=== PATIENT | female | born 1945 | race Caucasian/White ===

== ENCOUNTER → 2017-05-22 06:40 | Outpatient (CLI) | payer MEDICARE, OTHER, SELFPAY ==
[2017-05-22 07:33] LABS: Absolute Lymphocyte Count 1.51 X10^3/ul (0.83-4.51); Absolute Neutrophil Count 3.2 X10^3/uL (2.0-7.7); Basophil# 0.05 X10^3/uL; Basophil% 0.9 % (0-1); Eosinophils% 1.9 % (0-5); Hemoglobin 14.1 g/dl (12.0-15.0); Lymphocyte # 1.51 X10^3/ul (4.0); Lymphocyte % 28.2 % (19-41); Mean Corp Hgb Conc 32.8 g/gl (32-36); Mean Corpuscular Hgb 28.8 pg (27.0-32.0); Mean Corpuscular Volume 87.8 fL (81-99); Mean Platelet Vol. 9.2 fl (6.2-12.0); Monocyte% 9.3 % (0-10); Neutrophil % 59.7 % (47-70); Platelet Count 252 K/mm3 (150-450); RBC Distribution Width CV 15.7 % (11.6-14.6); RBC Distribution Width SD 49.8 fl (35.1-43.9); White Blood Count 5.4 K/mm3 (4.4-11.0)
[2017-05-22 07:34] LABS: POSITIVE COUNT NO; POSITIVE DIFFERENTIAL NO; POSITIVE MORPHOLOGY NO
[2017-05-22 07:45] LABS: ALB/GLOB Ratio 1.1 RATIO (0.9-2.4); AST(SGOT) 32 U/L (15-37); Alanine Aminotransfer ALT/SGPT 32 U/L (13-56); Albumin, Serum 3.9 g/dL (3.2-5.0); Alkaline Phosphatase 85 U/L (45-117); Anion Gap 8 (5-15); BUN 17 mg/dL (7-18); BUN/Creat Ratio 20.2 RATIO (10-20); Calcium,Total 9.5 mg/dL (8.5-10.1); Chloride 105 mmol/L (98-107); Cholesterol 240 mg/dL (200); Creatinine, Serum 0.84 mg/dL (0.55-1.02); EST Glomerular Filtration Rate 70 mL/min (>60); Est Glom Filt Rate - Afr Amer 85 mL/min (>60); Globulin 3.5 g/dL (2.2-4.2); Glucose 102 mg/dL (74-106); High Density Lipoprotein 74 mg/dL; Potassium 3.8 mmol/L (3.5-5.1); Protein, Total 7.4 g/dL (6.4-8.2); Sodium Level 142 mmol/L (136-145); Thyroid Stim Hormone (TSH) 0.48 uIU/mL (0.358-3.74); Triglycerides 87 mg/dL; Very Low Density Lipoprotein 17 mg/dL (5-40)
== END ==
PROVIDERS: Family Provider Family Medicine; PCP Family Medicine; Visit Provider Family Medicine
DX: I10 Essential (primary) hypertension (principal); E78.5 Hyperlipidemia, unspecified; E03.9 Hypothyroidism, unspecified
CPT/HCPCS: 36415; 80053; 80061; 84439; 84443; 85025

== ENCOUNTER → 2017-06-05 06:32 | Outpatient (CLI) | payer MEDICARE, OTHER, SELFPAY ==
[2017-06-05 06:45] LABS: Absolute Lymphocyte Count 1.49 X10^3/ul (0.83-4.51); Absolute Neutrophil Count 3.1 X10^3/uL (2.0-7.7); Basophil# 0.04 X10^3/uL; Basophil% 0.8 % (0-1); Eosinophil# 0.09 X10^3/uL; Eosinophils% 1.8 % (0-5); Hemoglobin 14.1 g/dl (12.0-15.0); Lymphocyte # 1.49 X10^3/ul (4.0); Mean Corp Hgb Conc 34.4 g/gl (32-36); Mean Corpuscular Hgb 30.3 pg (27.0-32.0); Monocyte# 0.47 X10^3/uL; Monocyte% 9.1 % (0-10); Neutrophil # 3.05 X10^3/uL (2.7-7.7); Neutrophil % 59.3 % (47-70); POSITIVE COUNT NO; POSITIVE DIFFERENTIAL NO; POSITIVE MORPHOLOGY NO; Platelet Count 265 K/mm3 (150-450); RBC Distribution Width CV 15.4 % (11.6-14.6); RBC Distribution Width SD 49.3 fl (35.1-43.9); Red Blood Count 4.66 M/mm3 (4.2-5.4); White Blood Count 5.1 K/mm3 (4.4-11.0)
[2017-06-05 07:02] LABS: ALB/GLOB Ratio 1.2 RATIO (0.9-2.4); AST(SGOT) 27 U/L (15-37); Alanine Aminotransfer ALT/SGPT 28 U/L (13-56); Albumin, Serum 3.9 g/dL (3.2-5.0); Alkaline Phosphatase 79 U/L (45-117); Anion Gap 6 (5-15); BUN 17 mg/dL (7-18); BUN/Creat Ratio 20.2 RATIO (10-20); Calcium,Total 9.4 mg/dL (8.5-10.1); Chloride 105 mmol/L (98-107); Creatinine, Serum 0.84 mg/dL (0.55-1.02); EST Glomerular Filtration Rate 70 mL/min (>60); Est Glom Filt Rate - Afr Amer 85 mL/min (>60); Globulin 3.3 g/dL (2.2-4.2); Glucose 103 mg/dL (74-106); Potassium 4.1 mmol/L (3.5-5.1); Protein, Total 7.2 g/dL (6.4-8.2); Sodium Level 140 mmol/L (136-145)
== END ==
PROVIDERS: Family Provider Family Medicine; PCP Family Medicine; Visit Provider Internal Medicine Rheumatology
DX: M06.4 Inflammatory polyarthropathy (principal); Z79.899 Other long term (current) drug therapy; M72.0 Palmar fascial fibromatosis [Dupuytren]; I10 Essential (primary) hypertension; H18.893 Other specified disorders of cornea, bilateral; E78.5 Hyperlipidemia, unspecified; I44.7 Left bundle-branch block, unspecified
CPT/HCPCS: 36415; 80053; 85025

== ENCOUNTER → 2017-08-13 06:29 | Outpatient (CLI) | payer MEDICARE, OTHER, SELFPAY ==
[2017-08-13 07:55] LABS: White Blood Count 5.5 K/mm3 (4.4-11.0)
[2017-08-13 07:56] LABS: Absolute Lymphocyte Count 1.15 X10^3/ul (0.83-4.51); Absolute Neutrophil Count 3.7 X10^3/uL (2.0-7.7); Basophil# 0.03 X10^3/uL; Basophil% 0.5 % (0-1); Eosinophil# 0.15 X10^3/uL; Eosinophils% 2.7 % (0-5); Hematocrit 41.3 % (37-47); Hemoglobin 13.4 g/dl (12.0-15.0); Lymphocyte # 1.15 X10^3/ul (4.0); Lymphocyte % 20.9 % (19-41); Mean Corp Hgb Conc 32.4 g/gl (32-36); Mean Corpuscular Volume 92.6 fL (81-99); Mean Platelet Vol. 9.3 fl (6.2-12.0); Monocyte# 0.52 X10^3/uL; Monocyte% 9.5 % (0-10); Neutrophil # 3.65 X10^3/uL (2.7-7.7); Neutrophil % 66.4 % (47-70); Platelet Count 241 K/mm3 (150-450); RBC Distribution Width CV 14.1 % (11.6-14.6); RBC Distribution Width SD 47.4 fl (35.1-43.9); Red Blood Count 4.46 M/mm3 (4.2-5.4)
[2017-08-13 07:57] LABS: POSITIVE COUNT NO; POSITIVE DIFFERENTIAL NO; POSITIVE MORPHOLOGY NO
[2017-08-13 08:33] LABS: ALB/GLOB Ratio 1.2 RATIO (0.9-2.4); AST(SGOT) 29 U/L (15-37); Alanine Aminotransfer ALT/SGPT 28 U/L (13-56); Alkaline Phosphatase 66 U/L (45-117); Anion Gap 8 (5-15); BUN 15 mg/dL (7-18); BUN/Creat Ratio 16.4 RATIO (10-20); Calcium,Total 9.5 mg/dL (8.5-10.1); Chloride 105 mmol/L (98-107); Creatinine, Serum 0.92 mg/dL (0.55-1.02); EST Glomerular Filtration Rate 64 mL/min (>60); Est Glom Filt Rate - Afr Amer 77 mL/min (>60); Globulin 3.3 g/dL (2.2-4.2); Glucose 96 mg/dL (74-106); Potassium 3.9 mmol/L (3.5-5.1); Protein, Total 7.3 g/dL (6.4-8.2); Sodium Level 141 mmol/L (136-145)
== END ==
PROVIDERS: Family Provider Family Medicine; PCP Family Medicine; Visit Provider Internal Medicine Rheumatology
DX: M06.4 Inflammatory polyarthropathy (principal); Z79.899 Other long term (current) drug therapy; M72.0 Palmar fascial fibromatosis [Dupuytren]; I10 Essential (primary) hypertension; H18.893 Other specified disorders of cornea, bilateral; E78.5 Hyperlipidemia, unspecified; I44.7 Left bundle-branch block, unspecified
CPT/HCPCS: 36415; 80053; 85025

== ENCOUNTER → 2017-08-21 06:56 | Outpatient (CLI) | payer MEDICARE, OTHER, SELFPAY ==
[2017-08-21 07:39] LABS: Absolute Lymphocyte Count 1.17 X10^3/ul (0.83-4.51); Absolute Neutrophil Count 4.4 X10^3/uL (2.0-7.7); Basophil# 0.03 X10^3/uL; Basophil% 0.5 % (0-1); Eosinophil# 0.09 X10^3/uL; Eosinophils% 1.5 % (0-5); Hemoglobin 13.5 g/dl (12.0-15.0); Lymphocyte # 1.17 X10^3/ul (4.0); Lymphocyte % 19.2 % (19-41); Mean Corp Hgb Conc 33.8 g/gl (32-36); Mean Corpuscular Hgb 30.9 pg (27.0-32.0); Mean Corpuscular Volume 91.5 fL (81-99); Mean Platelet Vol. 9.3 fl (6.2-12.0); Monocyte# 0.43 X10^3/uL; Monocyte% 7.1 % (0-10); Neutrophil # 4.35 X10^3/uL (2.7-7.7); Neutrophil % 71.5 % (47-70); Platelet Count 253 K/mm3 (150-450); RBC Distribution Width CV 13.6 % (11.6-14.6); RBC Distribution Width SD 44.8 fl (35.1-43.9); Red Blood Count 4.37 M/mm3 (4.2-5.4); White Blood Count 6.1 K/mm3 (4.4-11.0)
[2017-08-21 07:57] LABS: POSITIVE COUNT NO; POSITIVE DIFFERENTIAL NO; POSITIVE MORPHOLOGY NO
[2017-08-21 08:11] LABS: ALB/GLOB Ratio 1.1 RATIO (0.9-2.4); AST(SGOT) 37 U/L (15-37); Alanine Aminotransfer ALT/SGPT 33 U/L (13-56); Albumin, Serum 3.8 g/dL (3.2-5.0); Alkaline Phosphatase 66 U/L (45-117); Anion Gap 7 (5-15); BUN 13 mg/dL (7-18); BUN/Creat Ratio 13.2 RATIO (10-20); Calcium,Total 9.4 mg/dL (8.5-10.1); Chloride 107 mmol/L (98-107); Cholesterol 226 mg/dL (200); Creatinine, Serum 0.99 mg/dL (0.55-1.02); EST Glomerular Filtration Rate 59 mL/min (>60); Est Glom Filt Rate - Afr Amer 71 mL/min (>60); Globulin 3.4 g/dL (2.2-4.2); Glucose 109 mg/dL (74-106); High Density Lipoprotein 74 mg/dL; Potassium 3.8 mmol/L (3.5-5.1); Protein, Total 7.2 g/dL (6.4-8.2); Sodium Level 144 mmol/L (136-145); T4 Free Direct 1.31 ng/dL (0.76-1.46); Triglycerides 84 mg/dL; Very Low Density Lipoprotein 17 mg/dL (5-40)
== END ==
PROVIDERS: Family Provider Family Medicine; PCP Family Medicine; Visit Provider Family Medicine
DX: Z51.81 Encounter for therapeutic drug level monitoring (principal)
CPT/HCPCS: 36415; 80053; 80061; 84439; 84443; 85025

== ENCOUNTER → 2017-11-01 06:32 | Outpatient (CLI) | payer MEDICARE, OTHER, SELFPAY ==
[2017-11-01 07:36] LABS: Absolute Lymphocyte Count 1.43 X10^3/ul (0.83-4.51); Absolute Neutrophil Count 2.3 X10^3/uL (2.0-7.7); Basophil# 0.06 X10^3/uL; Basophil% 1.4 % (0-1); Eosinophil# 0.12 X10^3/uL; Eosinophils% 2.8 % (0-5); Hematocrit 39.6 % (37-47); Hemoglobin 13.2 g/dl (12.0-15.0); Lymphocyte # 1.43 X10^3/ul (4.0); Lymphocyte % 32.9 % (19-41); Mean Corp Hgb Conc 33.3 g/gl (32-36); Mean Corpuscular Hgb 30.3 pg (27.0-32.0); Mean Corpuscular Volume 90.8 fL (81-99); Mean Platelet Vol. 9.5 fl (6.2-12.0); Monocyte# 0.44 X10^3/uL; Monocyte% 10.1 % (0-10); Neutrophil # 2.29 X10^3/uL (2.7-7.7); Neutrophil % 52.8 % (47-70); Platelet Count 261 K/mm3 (150-450); RBC Distribution Width CV 13.9 % (11.6-14.6); RBC Distribution Width SD 45.5 fl (35.1-43.9); Red Blood Count 4.36 M/mm3 (4.2-5.4); White Blood Count 4.3 K/mm3 (4.4-11.0)
[2017-11-01 07:38] LABS: POSITIVE COUNT NO; POSITIVE DIFFERENTIAL NO; POSITIVE MORPHOLOGY NO
[2017-11-01 07:56] LABS: ALB/GLOB Ratio 1.2 RATIO (0.9-2.4); AST(SGOT) 29 U/L (15-37); Alanine Aminotransfer ALT/SGPT 33 U/L (13-56); Albumin, Serum 3.9 g/dL (3.2-5.0); Alkaline Phosphatase 65 U/L (45-117); Anion Gap 8 (5-15); BUN 16 mg/dL (7-18); BUN/Creat Ratio 18.5 RATIO (10-20); Calcium,Total 9.5 mg/dL (8.5-10.1); Chloride 108 mmol/L (98-107); Creatinine, Serum 0.87 mg/dL (0.55-1.02); EST Glomerular Filtration Rate 68 mL/min (>60); Est Glom Filt Rate - Afr Amer 82 mL/min (>60); Globulin 3.2 g/dL (2.2-4.2); Glucose 98 mg/dL (74-106); Potassium 3.9 mmol/L (3.5-5.1); Protein, Total 7.1 g/dL (6.4-8.2); Sodium Level 145 mmol/L (136-145)
== END ==
PROVIDERS: Family Provider Family Medicine; PCP Family Medicine; Visit Provider Internal Medicine Rheumatology
DX: M06.4 Inflammatory polyarthropathy (principal); Z79.899 Other long term (current) drug therapy; M72.0 Palmar fascial fibromatosis [Dupuytren]; I10 Essential (primary) hypertension; H18.893 Other specified disorders of cornea, bilateral; E78.5 Hyperlipidemia, unspecified; I44.7 Left bundle-branch block, unspecified
CPT/HCPCS: 36415; 80053; 85025

== ENCOUNTER → 2017-11-20 06:41 | Outpatient (CLI) | payer MEDICARE, OTHER, SELFPAY ==
[2017-11-20 07:25] LABS: Cholesterol 212 mg/dL (200); High Density Lipoprotein 72 mg/dL; T4 Free Direct 1.52 ng/dL (0.76-1.46); Thyroid Stim Hormone (TSH) 0.61 uIU/mL (0.358-3.74); Triglycerides 74 mg/dL; Very Low Density Lipoprotein 15 mg/dL (5-40)
== END ==
PROVIDERS: Family Provider Family Medicine; PCP Family Medicine; Referring Provider Family Medicine; Visit Provider Family Medicine
DX: I10 Essential (primary) hypertension (principal); E03.9 Hypothyroidism, unspecified; E78.5 Hyperlipidemia, unspecified; E55.9 Vitamin D deficiency, unspecified
CPT/HCPCS: 36415; 80061; 82306; 84439; 84443

== ENCOUNTER → 2018-02-13 06:35 | Outpatient (CLI) | payer MEDICARE, OTHER, SELFPAY ==
[2018-02-13 08:20] LABS: Absolute Lymphocyte Count 1.41 X10^3/ul (0.83-4.51); Absolute Neutrophil Count 4.1 X10^3/uL (2.0-7.7); Basophil# 0.05 X10^3/uL; Basophil% 0.8 % (0-1); Eosinophils% 1.6 % (0-5); Hematocrit 42.8 % (37-47); Hemoglobin 14.1 g/dl (12.0-15.0); Lymphocyte # 1.41 X10^3/ul (4.0); Lymphocyte % 23.2 % (19-41); Mean Corp Hgb Conc 32.9 g/gl (32-36); Mean Corpuscular Hgb 29.6 pg (27.0-32.0); Mean Corpuscular Volume 89.7 fL (81-99); Mean Platelet Vol. 9.9 fl (6.2-12.0); Monocyte% 6.6 % (0-10); Neutrophil % 67.6 % (47-70); Platelet Count 260 K/mm3 (150-450); RBC Distribution Width CV 13.7 % (11.6-14.6); RBC Distribution Width SD 43.9 fl (35.1-43.9); Red Blood Count 4.77 M/mm3 (4.2-5.4); White Blood Count 6.1 K/mm3 (4.4-11.0)
[2018-02-13 08:22] LABS: POSITIVE COUNT NO; POSITIVE DIFFERENTIAL NO; POSITIVE MORPHOLOGY NO
[2018-02-13 09:00] LABS: ALB/GLOB Ratio 1.3 RATIO (0.9-2.4); AST(SGOT) 33 U/L (15-37); Alanine Aminotransfer ALT/SGPT 32 U/L (13-56); Albumin, Serum 4.1 g/dL (3.2-5.0); Alkaline Phosphatase 76 U/L (45-117); Anion Gap 9 (5-15); BUN 16 mg/dL (7-18); BUN/Creat Ratio 19.9 RATIO (10-20); Calcium,Total 9.6 mg/dL (8.5-10.1); Chloride 105 mmol/L (98-107); EST Glomerular Filtration Rate 74 mL/min (>60); Est Glom Filt Rate - Afr Amer 89 mL/min (>60); Globulin 3.1 g/dL (2.2-4.2); Glucose 97 mg/dL (74-106); Potassium 3.8 mmol/L (3.5-5.1); Protein, Total 7.2 g/dL (6.4-8.2); Sodium Level 141 mmol/L (136-145)
== END ==
PROVIDERS: Family Provider Family Medicine; PCP Family Medicine; Referring Provider Internal Medicine Rheumatology; Visit Provider Internal Medicine Rheumatology
DX: M06.4 Inflammatory polyarthropathy (principal); Z79.899 Other long term (current) drug therapy; M72.0 Palmar fascial fibromatosis [Dupuytren]; I10 Essential (primary) hypertension; H18.893 Other specified disorders of cornea, bilateral; E78.5 Hyperlipidemia, unspecified; I44.7 Left bundle-branch block, unspecified
CPT/HCPCS: 36415; 80053; 85025

== ENCOUNTER → 2018-02-26 06:47 | Outpatient (CLI) | payer MEDICARE, OTHER, SELFPAY ==
[2018-02-26 07:54] LABS: Cholesterol 210 mg/dL (200); High Density Lipoprotein 72 mg/dL; T4 Free Direct 1.65 ng/dL (0.76-1.46); Thyroid Stim Hormone (TSH) 0.22 uIU/mL (0.358-3.74); Triglycerides 72 mg/dL; Very Low Density Lipoprotein 14 mg/dL (5-40)
--- OUTSIDE RECORDS SUMMARY | 2018-05-02 22:17 | XMS RPT_ITS ---
:1945 Author Organization OH[facility] Care Team Providers Name Role Phone La Nena Vaz Attending Unavailable La Nena Vaz Referring Unavailable Russell Shannon Primary Care Unavailable Russell Shannon Attending Unavailable Russell Shannon Referring Unavailable Russell Shannon Primary Care Unavailable Russell Shannon Attending Unavailable Russell Shannon Referring Unavailable Russell Shannon Primary Care Unavailable La Nena Vaz Attending Unavailable La Nena Vaz Referring Unavailable Russell Shannon Primary Care Unavailable La Nena Vaz Attending Unavailable Temitope Vazma Referring Unavailable Russell Shannon Primary Care Unavailable Russell Shannon Attending Unavailable Russell Shannon Referring Unavailable Russell Shannon Primary Care Unavailable La Nena Vaz Attending Unavailable La Nena Vaz Referring Unavailable Russell Shannon Primary Care Unavailable Russell Shannon Attending Unavailable Russell Shannon Referring Unavailable MirthaRussell matos Primary Care Unavailable PROBLEMS PROBLEMS DATE TYPE CONDITION / CODE ATTENDING STATUS SOURCE 02/26/2018 Unknown E78.5 - Russell Shannon Active [facility] Hyperlipidemia, Community unspecified / Hospital E78.5(ICD-10) Repository 02/26/2018 Unknown E03.9 - Russell Shannon Active [facility] Hypothyroidism, Community unspecified / Hospital E03.9(ICD-10) Repository 02/26/2018 Unknown K59.00 - Russell Shannon Active [place] Constipation, Community unspecified / Hospital K59.00(ICD-10) Repository 02/13/2018 Unknown 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 / Community M06.4(ICD-10) Hospital Repository 02/13/2018 Unknown Z79.899 - Other long La Nena Vaz Active [facility] term (current) drug Community therapy / Hospital Z79.899(ICD-10) Repository 02/13/2018 Unknown 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] / Hospital M72.0(ICD-10) Repository 02/13/2018 Unknown I10 - Essential Vellanjace La Nena Active [facility] (primary) Community hypertension / Hospital I10(ICD-10) Repository 02/13/2018 Unknown 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, bilateral Hospital / H18.893(ICD-10) Repository 02/13/2018 Unknown 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, Community unspecified / Hospital I44.7(ICD-10) Repository 11/20/2017 Unknown E55.9 - Vitamin D Russell Shannon Active [facility] deficiency, Community unspecified / Hospital E55.9(ICD-10) Repository 08/21/2017 Unknown Z51.81 - Encounter Russell Shannon Active [facility] for therapeutic drug Community level monitoring / Hospital Z51.81(ICD-10) Repository PROCEDURES PROCEDURES No Procedure Records FoundRESULTS RESULTS LIPID PROFILE Collected: 02/26/2018 Status: F Source: [facility] [facility] TYPE CODE TESTS RESULT OUT OF RANGE REFERENCE UNITS LAB L501.4900 200 mg/dL High CHOL 210 Result Comment: <200 mg/dL Desirable 200-240 mg/dL Borderline >240 mg/dL High Risk LAB L501.5000 mg/dL Normal TRIG 72 Result Comment: The drugs N-Acetylcysteine and Metamizole may falsely depress this assay. Serum Triglycerides Reference Interval Normal <150 mg/dL Borderline high 150 - 199 mg/dL High 200 - 499 mg/dL Very High > or = 500 mg/dL LAB L501.6400 mg/dL Normal HDL 72 Result Comment: The drugs N-Acetylcysteine and Metamizole may falsely depress this assay. Reference Range HDL <40 mg/dL Low HDL Cholesterol HDL >or= 60 mg/dL High HDL Cholesterol LAB L501.6500 0-130 mg/dL Normal LDL 124 LAB L501.6600 5-40 mg/dL Normal VLDL 14 Performed By: #### L500.4100, L501.9520, L506.0400 #### [facility] [address] [place], [address] THYROID STIM HORMONE Collected: 02/26/2018 Status: F Source: [place] ([facility]) 6:56 AM [facility] REPOSITORY TYPE CODE TESTS RESULT OUT OF RANGE REFERENCE UNITS LAB L501.9520 0.358-3.74 uIU/mL Low TSH 0.22 Performed By: #### L500.4100, L501.9520, L506.0400 #### [facility] [address] [place], [address] T4 FREE DIRECT Collected: 02/26/2018 Status: F Source: [place] 6:56 AM [facility] REPOSITORY TYPE CODE TESTS RESULT OUT OF REFERENCE UNITS RANGE LAB L506.0400 0.76-1.46 ng/dL High T4 FREE 1.65 DIRECT Performed By: #### L500.4100, L501.9520, L506.0400 #### [facility] [address] [place], [address] CBC W/DIFF, AUTOMATED Collected: 02/13/2018 Status: F Source: [place] 6:41 AM [facility] REPOSITORY TYPE CODE TESTS RESULT OUT OF RANGE REFERENCE UNITS LAB L100.1000 4.4-11.0 K/mm3 Normal WBC 6.1 LAB L100.1200 4.2-5.4 M/mm3 Normal RBC 4.77 LAB L100.1300 12.0-15.0 g/dl Normal HGB 14.1 LAB L100.1400 37-47 % Normal HCT 42.8 LAB L100.1500 81-99 fL Normal MCV 89.7 LAB L100.1600 27.0-32.0 pg Normal MCH 29.6 LAB L100.1700 32-36 g/gl Normal MCHC 32.9 LAB L100.1810 11.6-14.6 % Normal RDW CV 13.7 LAB L100.1820 35.1-43.9 fl Normal RDW SD 43.9 LAB L100.1900 150-450 K/mm3 Normal PLT 260 LAB L100.2000 6.2-12.0 fl Normal MPV 9.9 LAB L100.2100 47-70 % Normal NEUT% 67.6 LAB L100.2200 19-41 % Normal LY% 23.2 LAB L100.2300 0-10 % Normal MONO% 6.6 LAB L100.2400 0-5 % Normal EO% 1.6 LAB L100.2500 0-1 % Normal BASO% 0.8 LAB L100.2550 0.0-0.9 % Normal IM GRAN % 0.200 Result Comment: IG% - Immature Granulocytes (promyelocytes, myelocytes and metamyelocytes) > 1% indicates that a LEFT SHIFT is Present. LAB L100.2620 2.0-7.7 X10 3/uL Normal Absolute Neut 4.1 LAB L100.2720 0.83-4.51 X10 3/ul Normal Absolute Lymph 1.41 Performed By: #### L100.0100 #### [facility] [address] [place], [place], [address] COMPREHENSIVE METABOLIC Collected: 02/13/2018 Status: F Source: [place] 6:41 AM [facility] REPOSITORY TYPE CODE TESTS RESULT OUT OF RANGE REFERENCE UNITS LAB L501.0100 74-106 mg/dL Normal GLU 97 Result Comment: Please note revised GLUCOSE reference range effective 2017. LAB L501.1000 7-18 mg/dL Normal BUN 16 LAB L501.1100 0.55-1.02 mg/dL Normal CREAT,SERUM 0.80 Result Comment: The validity of the calculated GFR AND GFRAA in patients over 70 years has not been determined. Clinical correlation is essential. LAB L501.1110 >60 mL/min Normal EST GFR 74 Result Comment: Non- GFR Calc LAB L501.1115 >60 mL/min Normal EST GFR - AA 89 Result Comment: GFR Calc LAB L501.1300 10-20 RATIO Normal BUN/CRE 19.9 LAB L501.1500 6.4-8.2 g/dL T Normal PROT 7.2 LAB L501.1800 3.2-5.0 g/dL Normal ALB 4.1 LAB L501.1950 2.2-4.2 g/dL Normal GLOB 3.1 LAB L501.2000 0.9-2.4 RATIO Normal A/G 1.3 LAB L501.2200 8.5-10.1 mg/dL CA Normal 9.6 LAB L501.4100 15-37 U/L Normal AST 33 LAB L501.4305 45-117 U/L Normal ALK P 76 LAB L501.4405 13-56 U/L Normal ALT 32 LAB L501.4600 0.20-1.00 mg/dL T Normal BILI 0.90 LAB L501.5300 136-145 mmol/L NA Normal 141 LAB L501.5600 3.5-5.1 mmol/L K Normal 3.8 LAB L501.5900 98-107 mmol/L CL Normal 105 LAB L501.6100 21.0-32.0 mmol/L Normal CO2 27.0 LAB L501.6200 5-15 Normal GAP 9 Performed By: #### L500.4050 #### [facility] [address] [place], [address] LIPID PROFILE Collected: 11/20/2017 Status: F Source: [place] 6:46 AM [facility] REPOSITORY TYPE CODE TESTS RESULT OUT OF RANGE REFERENCE UNITS LAB L501.4900 200 mg/dL High CHOL 212 Result Comment: <200 mg/dL Desirable 200-240 mg/dL Borderline >240 mg/dL High Risk LAB L501.5000 mg/dL Normal TRIG 74 Result Comment: The drugs N-Acetylcysteine and Metamizole may falsely depress this assay. Serum Triglycerides Reference Interval Normal <150 mg/dL Borderline high 150 - 199 mg/dL High 200 - 499 mg/dL Very High > or = 500 mg/dL LAB L501.6400 mg/dL Normal HDL 72 Result Comment: The drugs N-Acetylcysteine and Metamizole may falsely depress this assay. Reference Range HDL <40 mg/dL Low HDL Cholesterol HDL >or= 60 mg/dL High HDL Cholesterol LAB L501.6500 0-130 mg/dL Normal LDL 125 LAB L501.6600 5-40 mg/dL Normal VLDL 15 Performed By: #### L500.4100, L501.9520, L506.0400 #### [facility] [address] [place], [address] THYROID STIM HORMONE Collected: 11/20/2017 Status: F Source: [place] ([facility]) 6:46 AM [facility] REPOSITORY TYPE CODE TESTS RESULT OUT OF RANGE REFERENCE UNITS LAB L501.9520 0.358-3.74 uIU/mL Normal TSH 0.61 Performed By: #### L500.4100, L501.9520, L506.0400 #### [facility] [address] [place], [address] T4 FREE DIRECT Collected: 11/20/2017 Status: F Source: [place] 6:46 AM [facility] REPOSITORY TYPE CODE TESTS RESULT OUT OF REFERENCE UNITS RANGE LAB L506.0400 0.76-1.46 ng/dL High T4 FREE 1.52 DIRECT Performed By: #### L500.4100, L501.9520, L506.0400 #### [facility] [address] [place], [address] VITAMIN D,25 HYDROXY Collected: 11/20/2017 Status: F Source: [place] 6:46 AM [facility] REPOSITORY TYPE CODE TESTS RESULT OUT OF RANGE REFERENCE UNITS LAB L506.1000 29.95-100.01 ng/mL Normal Vitamin D 36.0 25-OH Result Comment: Vitamin D 25(OH) Status Range Deficiency <20 ng/mL (50nmol/L) Insuffciency 20 - 30 ng/mL (50 - 75 nmol/L) Sufficiency 30 - 100 ng/mL (75 - 250 nmol/L) Toxicity >100 ng/mL (>250 nmol/L) Performed By: #### L506.1000 #### [facility] [address] [place] [place], [address] CBC W/DIFF, AUTOMATED Collected: 11/01/2017 Status: F Source: [place] 6:36 AM [facility] REPOSITORY TYPE CODE TESTS RESULT OUT OF RANGE REFERENCE UNITS LAB L100.1000 4.4-11.0 K/mm3 Low WBC 4.3 LAB L100.1200 4.2-5.4 M/mm3 Normal RBC 4.36 LAB L100.1300 12.0-15.0 g/dl Normal HGB 13.2 LAB L100.1400 37-47 % Normal HCT 39.6 LAB L100.1500 81-99 fL Normal MCV 90.8 LAB L100.1600 27.0-32.0 pg Normal MCH 30.3 LAB L100.1700 32-36 g/gl Normal MCHC 33.3 LAB L100.1810 11.6-14.6 % Normal RDW CV 13.9 LAB L100.1820 35.1-43.9 fl High RDW SD 45.5 LAB L100.1900 150-450 K/mm3 Normal PLT 261 LAB L100.2000 6.2-12.0 fl Normal MPV 9.5 LAB L100.2100 47-70 % Normal NEUT% 52.8 LAB L100.2200 19-41 % Normal LY% 32.9 LAB L100.2300 0-10 % High MONO% 10.1 LAB L100.2400 0-5 % Normal EO% 2.8 LAB L100.2500 0-1 % High BASO% 1.4 LAB L100.2550 0.0-0.9 % Normal IM GRAN % 0.000 Result Comment: IG% - Immature Granulocytes (promyelocytes, myelocytes and metamyelocytes) > 1% indicates that a LEFT SHIFT is Present. LAB L100.2620 2.0-7.7 X10 3/uL Normal Absolute Neut 2.3 LAB L100.2720 0.83-4.51 X10 3/ul Normal Absolute Lymph 1.43 Performed By: #### L100.0100 #### [facility] [address] [place], [address] COMPREHENSIVE METABOLIC Collected: 11/01/2017 Status: F Source: [place] [place] 6:36 AM [facility] REPOSITORY TYPE CODE TESTS RESULT OUT OF RANGE REFERENCE UNITS LAB L501.0100 74-106 mg/dL Normal GLU 98 Result Comment: Please note revised GLUCOSE reference range effective 2017. LAB L501.1000 7-18 mg/dL Normal BUN 16 LAB L501.1100 0.55-1.02 mg/dL Normal CREAT,SERUM 0.87 Result Comment: The validity of the calculated GFR AND GFRAA in patients over 70 years has not been determined. Clinical correlation is essential. LAB L501.1110 >60 mL/min Normal EST GFR 68 Result Comment: Non- GFR Calc LAB L501.1115 >60 mL/min Normal EST GFR - AA 82 Result Comment: GFR Calc LAB L501.1300 10-20 RATIO Normal BUN/CRE 18.5 LAB L501.1500 6.4-8.2 g/dL T Normal PROT 7.1 LAB L501.1800 3.2-5.0 g/dL Normal ALB 3.9 LAB L501.1950 2.2-4.2 g/dL Normal GLOB 3.2 LAB L501.2000 0.9-2.4 RATIO Normal A/G 1.2 LAB L501.2200 8.5-10.1 mg/dL CA Normal 9.5 LAB L501.4100 15-37 U/L Normal AST 29 LAB L501.4305 45-117 U/L Normal ALK P 65 LAB L501.4405 13-56 U/L Normal ALT 33 LAB L501.4600 0.20-1.00 mg/dL T Normal BILI 0.80 LAB L501.5300 136-145 mmol/L NA Normal 145 LAB L501.5600 3.5-5.1 mmol/L K Normal 3.9 LAB L501.5900 98-107 mmol/L High CL 108 LAB L501.6100 21.0-32.0 mmol/L Normal CO2 29.0 LAB L501.6200 5-15 Normal GAP 8 Performed By: #### L500.4050 #### [facility] [address] [place], [place], [address] CBC W/DIFF, AUTOMATED Collected: 08/21/2017 Status: F Source: [place] 7:01 AM [facility] REPOSITORY TYPE CODE TESTS RESULT OUT OF RANGE REFERENCE UNITS LAB L100.1000 4.4-11.0 K/mm3 Normal WBC 6.1 LAB L100.1200 4.2-5.4 M/mm3 Normal RBC 4.37 LAB L100.1300 12.0-15.0 g/dl Normal HGB 13.5 LAB L100.1400 37-47 % Normal HCT 40.0 LAB L100.1500 81-99 fL Normal MCV 91.5 LAB L100.1600 27.0-32.0 pg Normal MCH 30.9 LAB L100.1700 32-36 g/gl Normal MCHC 33.8 LAB L100.1810 11.6-14.6 % Normal RDW CV 13.6 LAB L100.1820 35.1-43.9 fl High RDW SD 44.8 LAB L100.1900 150-450 K/mm3 Normal PLT 253 LAB L100.2000 6.2-12.0 fl Normal MPV 9.3 LAB L100.2100 47-70 % High NEUT% 71.5 LAB L100.2200 19-41 % Normal LY% 19.2 LAB L100.2300 0-10 % Normal MONO% 7.1 LAB L100.2400 0-5 % Normal EO% 1.5 LAB L100.2500 0-1 % Normal BASO% 0.5 LAB L100.2550 0.0-0.9 % Normal IM GRAN % 0.200 Result Comment: IG% - Immature Granulocytes (promyelocytes, myelocytes and metamyelocytes) > 1% indicates that a LEFT SHIFT is Present. LAB L100.2620 2.0-7.7 X10 3/uL Normal Absolute Neut 4.4 LAB L100.2720 0.83-4.51 X10 3/ul Normal Absolute Lymph 1.17 Performed By: #### L100.0100 #### [facility] [address] [place], [place], [address] COMPREHENSIVE METABOLIC Collected: 08/21/2017 Status: F Source: [facility] 7:01 AM [facility] REPOSITORY TYPE CODE TESTS RESULT OUT OF RANGE REFERENCE UNITS LAB L501.0100 74-106 mg/dL High GLU 109 Result Comment: Fasting Glucose result from 100 to 125 mg/dL suggests IMPAIRED HOMEOSTASIS per A.D.A. criteria. Please note revised GLUCOSE reference range effective 2017. LAB L501.1000 7-18 mg/dL Normal BUN 13 LAB L501.1100 0.55-1.02 mg/dL Normal CREAT,SERUM 0.99 Result Comment: The validity of the calculated GFR AND GFRAA in patients over 70 years has not been determined. Clinical correlation is essential. LAB L501.1110 >60 mL/min Low EST GFR 59 Result Comment: Non- GFR Calc LAB L501.1115 >60 mL/min Normal EST GFR - AA 71 Result Comment: GFR Calc LAB L501.1300 10-20 RATIO Normal BUN/CRE 13.2 LAB L501.1500 6.4-8.2 g/dL T Normal PROT 7.2 LAB L501.1800 3.2-5.0 g/dL Normal ALB 3.8 LAB L501.1950 2.2-4.2 g/dL Normal GLOB 3.4 LAB L501.2000 0.9-2.4 RATIO Normal A/G 1.1 LAB L501.2200 8.5-10.1 mg/dL CA Normal 9.4 LAB L501.4100 15-37 U/L Normal AST 37 LAB L501.4305 45-117 U/L Normal ALK P 66 LAB L501.4405 13-56 U/L Normal ALT 33 LAB L501.4600 0.20-1.00 mg/dL T Normal BILI 0.70 LAB L501.5300 136-145 mmol/L NA Normal 144 LAB L501.5600 3.5-5.1 mmol/L K Normal 3.8 LAB L501.5900 98-107 mmol/L CL Normal 107 LAB L501.6100 21.0-32.0 mmol/L Normal CO2 30.0 LAB L501.6200 5-15 Normal GAP 7 Performed By: #### L500.4050, L500.4100, L501.9520, L506.0400 #### [facility] [place], [address] LIPID PROFILE Collected: 08/21/2017 Status: F Source: [place] 7:01 AM [facility] REPOSITORY TYPE CODE TESTS RESULT OUT OF RANGE REFERENCE UNITS LAB L501.4900 200 mg/dL High CHOL 226 Result Comment: <200 mg/dL Desirable 200-240 mg/dL Borderline >240 mg/dL High Risk LAB L501.5000 mg/dL Normal TRIG 84 Result Comment: The drugs N-Acetylcysteine and Metamizole may falsely depress this assay. Serum Triglycerides Reference Interval Normal <150 mg/dL Borderline high 150 - 199 mg/dL High 200 - 499 mg/dL Very High > or = 500 mg/dL LAB L501.6400 mg/dL Normal HDL 74 Result Comment: The drugs N-Acetylcysteine and Metamizole may falsely depress this assay. Reference Range HDL <40 mg/dL Low HDL Cholesterol HDL >or= 60 mg/dL High HDL Cholesterol LAB L501.6500 0-130 mg/dL High LDL 135 LAB L501.6600 5-40 mg/dL Normal VLDL 17 Performed By: #### L500.4050, L500.4100, L501.9520, L506.0400 #### [facility] [address] [place], [address] THYROID STIM HORMONE Collected: 08/21/2017 Status: F Source: [place] (T[facility]) 7:01 AM [facility] REPOSITORY TYPE CODE TESTS RESULT OUT OF RANGE REFERENCE UNITS LAB L501.9520 0.358-3.74 uIU/mL High TSH 13.20 Performed By: #### L500.4050, L500.4100, L501.9520, L506.0400 #### [facility] [address] [place], [place], [id number] T4 FREE DIRECT Collected: 08/21/2017 Status: F Source: [place] 7:01 AM [facility] REPOSITORY TYPE CODE TESTS RESULT OUT OF RANGE REFERENCE UNITS LAB L506.0400 0.76-1.46 ng/dL Normal T4 FREE 1.31 DIRECT Performed By: #### L500.4050, L500.4100, L501.9520, L506.0400 #### [facility] [address] [place], [place], [address] CBC W/DIFF, AUTOMATED Collected: 08/13/2017 Status: F Source: [place] 6:34 AM [facility] REPOSITORY TYPE CODE TESTS RESULT OUT OF RANGE REFERENCE UNITS LAB L100.1000 4.4-11.0 K/mm3 Normal WBC 5.5 LAB L100.1200 4.2-5.4 M/mm3 Normal RBC 4.46 LAB L100.1300 12.0-15.0 g/dl Normal HGB 13.4 LAB L100.1400 37-47 % Normal HCT 41.3 LAB L100.1500 81-99 fL Normal MCV 92.6 LAB L100.1600 27.0-32.0 pg Normal MCH 30.0 LAB L100.1700 32-36 g/gl Normal MCHC 32.4 LAB L100.1810 11.6-14.6 % Normal RDW CV 14.1 LAB L100.1820 35.1-43.9 fl High RDW SD 47.4 LAB L100.1900 150-450 K/mm3 Normal PLT 241 LAB L100.2000 6.2-12.0 fl Normal MPV 9.3 LAB L100.2100 47-70 % Normal NEUT% 66.4 LAB L100.2200 19-41 % Normal LY% 20.9 LAB L100.2300 0-10 % Normal MONO% 9.5 LAB L100.2400 0-5 % Normal EO% 2.7 LAB L100.2500 0-1 % Normal BASO% 0.5 LAB L100.2550 0.0-0.9 % Normal IM GRAN % 0.000 Result Comment: IG% - Immature Granulocytes (promyelocytes, myelocytes and metamyelocytes) > 1% indicates that a LEFT SHIFT is Present. LAB L100.2620 2.0-7.7 X10 3/uL Normal Absolute Neut 3.7 LAB L100.2720 0.83-4.51 X10 3/ul Normal Absolute Lymph 1.15 Performed By: #### L100.0100 #### [facility] [address] [place], [address] COMPREHENSIVE METABOLIC Collected: 08/13/2017 Status: F Source: [facility] 6:34 AM [facility] REPOSITORY TYPE CODE TESTS RESULT OUT OF RANGE REFERENCE UNITS LAB L501.0100 74-106 mg/dL Normal GLU 96 Result Comment: Please note revised GLUCOSE reference range effective 2017. LAB L501.1000 7-18 mg/dL Normal BUN 15 LAB L501.1100 0.55-1.02 mg/dL Normal CREAT,SERUM 0.92 Result Comment: The validity of the calculated GFR AND GFRAA in patients over 70 years has not been determined. Clinical correlation is essential. LAB L501.1110 >60 mL/min Normal EST GFR 64 Result Comment: Non- GFR Calc LAB L501.1115 >60 mL/min Normal EST GFR - AA 77 Result Comment: GFR Calc LAB L501.1300 10-20 RATIO Normal BUN/CRE 16.4 LAB L501.1500 6.4-8.2 g/dL T Normal PROT 7.3 LAB L501.1800 3.2-5.0 g/dL Normal ALB 4.0 LAB L501.1950 2.2-4.2 g/dL Normal GLOB 3.3 LAB L501.2000 0.9-2.4 RATIO Normal A/G 1.2 LAB L501.2200 8.5-10.1 mg/dL CA Normal 9.5 LAB L501.4100 15-37 U/L Normal AST 29 LAB L501.4305 45-117 U/L Normal ALK P 66 LAB L501.4405 13-56 U/L Normal ALT 28 LAB L501.4600 0.20-1.00 mg/dL T Normal BILI 0.70 LAB L501.5300 136-145 mmol/L NA Normal 141 LAB L501.5600 3.5-5.1 mmol/L K Normal 3.9 LAB L501.5900 98-107 mmol/L CL Normal 105 LAB L501.6100 21.0-32.0 mmol/L Normal CO2 28.0 LAB L501.6200 5-15 Normal GAP 8 Performed By: #### L500.4050 #### [facility] [address] [place], [address] CBC W/DIFF, AUTOMATED Collected: 06/05/2017 Status: F Source: [place] 6:36 AM [facility] REPOSITORY TYPE CODE TESTS RESULT OUT OF RANGE REFERENCE UNITS LAB L100.1000 4.4-11.0 K/mm3 Normal WBC 5.1 LAB L100.1200 4.2-5.4 M/mm3 Normal RBC 4.66 LAB L100.1300 12.0-15.0 g/dl Normal HGB 14.1 LAB L100.1400 37-47 % Normal HCT 41.0 LAB L100.1500 81-99 fL Normal MCV 88.0 LAB L100.1600 27.0-32.0 pg Normal MCH 30.3 LAB L100.1700 32-36 g/gl Normal MCHC 34.4 LAB L100.1810 11.6-14.6 % High RDW CV 15.4 LAB L100.1820 35.1-43.9 fl High RDW SD 49.3 LAB L100.1900 150-450 K/mm3 Normal PLT 265 LAB L100.2000 6.2-12.0 fl Normal MPV 9.0 LAB L100.2100 47-70 % Normal NEUT% 59.3 LAB L100.2200 19-41 % Normal LY% 29.0 LAB L100.2300 0-10 % Normal MONO% 9.1 LAB L100.2400 0-5 % Normal EO% 1.8 LAB L100.2500 0-1 % Normal BASO% 0.8 LAB L100.2550 0.0-0.9 % Normal IM GRAN % 0.000 Result Comment: IG% - Immature Granulocytes (promyelocytes, myelocytes and metamyelocytes) > 1% indicates that a LEFT SHIFT is Present. LAB L100.2620 2.0-7.7 X10 3/uL Normal Absolute Neut 3.1 LAB L100.2720 0.83-4.51 X10 3/ul Normal Absolute Lymph 1.49 Performed By: #### L100.0100 #### [facility] [address] [place], [place], [address] COMPREHENSIVE METABOLIC Collected: 06/05/2017 Status: F Source: [facility] 6:36 AM [facility] REPOSITORY TYPE CODE TESTS RESULT OUT OF RANGE REFERENCE UNITS LAB L501.0100 74-106 mg/dL Normal GLU 103 Result Comment: Fasting Glucose result from 100 to 125 mg/dL suggests IMPAIRED HOMEOSTASIS per A.D.A. criteria. Please note revised GLUCOSE reference range effective 2017. LAB L501.1000 7-18 mg/dL Normal BUN 17 LAB L501.1100 0.55-1.02 mg/dL Normal CREAT,SERUM 0.84 Result Comment: The validity of the calculated GFR AND GFRAA in patients over 70 years has not been determined. Clinical correlation is essential. LAB L501.1110 >60 mL/min Normal EST GFR 70 Result Comment: Non- GFR Calc LAB L501.1115 >60 mL/min Normal EST GFR - AA 85 Result Comment: GFR Calc LAB L501.1300 10-20 RATIO High BUN/CRE 20.2 LAB L501.1500 6.4-8.2 g/dL T Normal PROT 7.2 LAB L501.1800 3.2-5.0 g/dL Normal ALB 3.9 LAB L501.1950 2.2-4.2 g/dL Normal GLOB 3.3 LAB L501.2000 0.9-2.4 RATIO Normal A/G 1.2 LAB L501.2200 8.5-10.1 mg/dL CA Normal 9.4 LAB L501.4100 15-37 U/L Normal AST 27 LAB L501.4305 45-117 U/L Normal ALK P 79 LAB L501.4405 13-56 U/L Normal ALT 28 LAB L501.4600 0.20-1.00 mg/dL T Normal BILI 0.90 LAB L501.5300 136-145 mmol/L NA Normal 140 LAB L501.5600 3.5-5.1 mmol/L K Normal 4.1 LAB L501.5900 98-107 mmol/L CL Normal 105 LAB L501.6100 21.0-32.0 mmol/L Normal CO2 29.0 LAB L501.6200 5-15 Normal GAP 6 Performed By: #### L500.4050 #### [facility] [address] [place], [address] CBC W/DIFF, AUTOMATED Collected: 05/22/2017 Status: F Source: [place] 6:43 AM [facility] REPOSITORY TYPE CODE TESTS RESULT OUT OF RANGE REFERENCE UNITS LAB L100.1000 4.4-11.0 K/mm3 Normal WBC 5.4 LAB L100.1200 4.2-5.4 M/mm3 Normal RBC 4.90 LAB L100.1300 12.0-15.0 g/dl Normal HGB 14.1 LAB L100.1400 37-47 % Normal HCT 43.0 LAB L100.1500 81-99 fL Normal MCV 87.8 LAB L100.1600 27.0-32.0 pg Normal MCH 28.8 LAB L100.1700 32-36 g/gl Normal MCHC 32.8 LAB L100.1810 11.6-14.6 % High RDW CV 15.7 LAB L100.1820 35.1-43.9 fl High RDW SD 49.8 LAB L100.1900 150-450 K/mm3 Normal PLT 252 LAB L100.2000 6.2-12.0 fl Normal MPV 9.2 LAB L100.2100 47-70 % Normal NEUT% 59.7 LAB L100.2200 19-41 % Normal LY% 28.2 LAB L100.2300 0-10 % Normal MONO% 9.3 LAB L100.2400 0-5 % Normal EO% 1.9 LAB L100.2500 0-1 % Normal BASO% 0.9 LAB L100.2550 0.0-0.9 % Normal IM GRAN % 0.000 Result Comment: IG% - Immature Granulocytes (promyelocytes, myelocytes and metamyelocytes) > 1% indicates that a LEFT SHIFT is Present. LAB L100.2620 2.0-7.7 X10 3/uL Normal Absolute Neut 3.2 LAB L100.2720 0.83-4.51 X10 3/ul Normal Absolute Lymph 1.51 Performed By: #### L100.0100 #### [facility] [address] [place], [address] COMPREHENSIVE METABOLIC Collected: 05/22/2017 Status: F Source: [facility] 6:43 AM [facility] REPOSITORY TYPE CODE TESTS RESULT OUT OF RANGE REFERENCE UNITS LAB L501.0100 74-106 mg/dL Normal GLU 102 Result Comment: Fasting Glucose result from 100 to 125 mg/dL suggests IMPAIRED HOMEOSTASIS per A.D.A. criteria. Please note revised GLUCOSE reference range effective 2017. LAB L501.1000 7-18 mg/dL Normal BUN 17 LAB L501.1100 0.55-1.02 mg/dL Normal CREAT,SERUM 0.84 Result Comment: The validity of the calculated GFR AND GFRAA in patients over 70 years has not been determined. Clinical correlation is essential. LAB L501.1110 >60 mL/min Normal EST GFR 70 Result Comment: Non- GFR Calc LAB L501.1115 >60 mL/min Normal EST GFR - AA 85 Result Comment: GFR Calc LAB L501.1300 10-20 RATIO High BUN/CRE 20.2 LAB L501.1500 6.4-8.2 g/dL T Normal PROT 7.4 LAB L501.1800 3.2-5.0 g/dL Normal ALB 3.9 LAB L501.1950 2.2-4.2 g/dL Normal GLOB 3.5 LAB L501.2000 0.9-2.4 RATIO Normal A/G 1.1 LAB L501.2200 8.5-10.1 mg/dL CA Normal 9.5 LAB L501.4100 15-37 U/L Normal AST 32 LAB L501.4305 45-117 U/L Normal ALK P 85 LAB L501.4405 13-56 U/L Normal ALT 32 Result Comment: Please note revised ALT reference range effective 2017. LAB L501.4600 0.20-1.00 mg/dL Normal T BILI 0.70 LAB L501.5300 136-145 mmol/L Normal NA 142 LAB L501.5600 3.5-5.1 mmol/L Normal K 3.8 LAB L501.5900 98-107 mmol/L Normal CL 105 LAB L501.6100 21.0-32.0 mmol/L Normal CO2 29.0 LAB L501.6200 5-15 Normal GAP 8 Performed By: #### L500.4050, L500.4100, L501.9520, L506.0400 #### [facility] [address] [place], [place], [address] LIPID PROFILE Collected: 05/22/2017 Status: F Source: SHAYLA 6:43 AM [facility] REPOSITORY TYPE CODE TESTS RESULT OUT OF RANGE REFERENCE UNITS LAB L501.4900 200 mg/dL High CHOL 240 Result Comment: <200 mg/dL Desirable 200-240 mg/dL Borderline >240 mg/dL High Risk LAB L501.5000 mg/dL Normal TRIG 87 Result Comment: The drugs N-Acetylcysteine and Metamizole may falsely depress this assay. Serum Triglycerides Reference Interval Normal <150 mg/dL Borderline high 150 - 199 mg/dL High 200 - 499 mg/dL Very High > or = 500 mg/dL LAB L501.6400 mg/dL Normal HDL 74 Result Comment: The drugs N-Acetylcysteine and Metamizole may falsely depress this assay. Reference Range HDL <40 mg/dL Low HDL Cholesterol HDL >or= 60 mg/dL High HDL Cholesterol LAB L501.6500 0-130 mg/dL High LDL 149 LAB L501.6600 5-40 mg/dL Normal VLDL 17 Performed By: #### L500.4050, L500.4100, L501.9520, L506.0400 #### [facility] [address] [facility] [place], [place], [id number] THYROID STIM HORMONE Collected: 05/22/2017 Status: F Source: [place] (TSH) 6:43 AM [facility] REPOSITORY TYPE CODE TESTS RESULT OUT OF RANGE REFERENCE UNITS LAB L501.9520 0.358-3.74 uIU/mL Normal TSH 0.48 Performed By: #### L500.4050, L500.4100, L501.9520, L506.0400 #### [facility] [address] [place], [address] T4 FREE DIRECT Collected: 05/22/2017 Status: F Source: [place] 6:43 AM [facility] REPOSITORY TYPE CODE TESTS RESULT OUT OF REFERENCE UNITS RANGE LAB L506.0400 0.76-1.46 ng/dL High T4 FREE 1.60 DIRECT Performed By: #### L500.4050, L500.4100, L501.9520, L506.0400 #### [facility] [address] [place], [address] ALLERGIES ALLERGIES DATE TYPE / CODE NAME / CODE REACTION SEVERITY SOURCE 11/19/2013 Drug codeine/F006 Other Unknown [facility] Allergy/4160 250521([facility]315(SNOMED M) Repository CT) 11/19/2013 Drug simvastatin/ Other Unknown [facility] Allergy/4160 [id number]([place] 2635902(SNOMED XNORM) Repository CT) ENCOUNTERS ENCOUNTERS ADMIT/DISCHARGE ACCOUNT ADMITTING ENCOUNTER LOCATION SOURCE NUMBER CLASS 02/26/2018 [id number] Ambulatory [facility] 0 [facility] ing:LAB Repository 02/13/2018 [id number] Ambulatory [place] 7 [facility] ing:LAB Repository 11/20/2017 [id number] Ambulatory [place] 1 [facility] ing:LAB Repository 11/01/2017 [id number] Ambulatory [place]la Shayla 1 [facility] ing:LAB Repository 08/21/2017 [id number] Ambulatory [place] 6 [facility] ing:LAB Repository 08/13/2017 [id number] Ambulatory [facility] [place] 6 [facility] ing:LAB Repository 06/05/2017 [id number] Ambulatory Shayla Shayla 4 [facility] ing:LAB Repository 05/22/2017 [id number] Ambulatory [place] 3 [facility] ing:LAB Repository PAYERS PAYERS ENCOUNTER GUARANTOR PAYER SUBSCRIBER SOURCE 02/26/2018 SHAGUFTA J Primary SHAGUFTA J [place] [id number] Insurance:MEDICARE TOTTENDOB: [facility] PART A BPolicy Number: [id number] [id number] Repository [address]Cha: 330) Date:2018-02-26 [phone] () 02/26/2018 Secondary SHAGUFTA J [place] Insurance:HUMANA TOTTENDOB: [facility] [id number] [facility] Number: Repository [id number] Date:[id number] [address]XO: 02/26/2018 Tertiary NOT GIVENUNK [place] Insurance:SELF PAY [facility] Number: Effective Repository Date:2018-02-26 02/13/2018 SHAGUFTA J Primary SHAGUFTA J [place] [id number] Insurance:MEDICARE TOTTENDOB: [facility] PART A BPolicy Number: [id number] [id number] Repository [address]Teh: (330) Date:[phone] () 02/13/2018 Secondary SHAGUFTA J Shayla Insurance:HUMANA TOTTENDOB: [facility] [id number] Hospital Number: Repository [id number] Date:2140-21-61MF [address] [address]ME: 02/13/2018 Tertiary NOT GIVENUNK Shayla Insurance:SELF PAY [facility] Number: Effective Repository Date:2018-02-13 11/20/2017 SHAGUFTA J Primary SHAGUFTA J [place] [id number] Insurance:MEDICARE TOTTENDOB: [facility] PART A BPolicy Number: [id number] [id number] Repository [address]Lie: 330) Date:2017-11-201222 () 11/20/2017 Secondary SHAGUFTA J Shayla Insurance:HUMANA TOTTENDOB: [facility] [id number] Hospital Number: Repository [id number] Date:8492-03-94DV [address] [address]AM: 11/20/2017 Tertiary NOT GIVENUNK [place] Insurance:SELF PAY [facility] Number: Effective Repository Date:2017-11-20 11/01/2017 SHAGUFTA J Primary SHAGUFTA J [place] [id number] Insurance:MEDICARE TOTTENDOB: Community [facility] PART A BPolicy Number: [id number], [place] [id number] Repository [address]Yai: (330) Date:2017-11-01 [phone] () 11/01/2017 Secondary SHAGUFTA J Shayla Insurance:HUMANA TOTTENDOB: [facility] [id number] Hospital Number: Repository [id number] Date:7090-64-27OL [address] [address]JV: 11/01/2017 Tertiary NOT GIVENUNK Shayla Insurance:SELF PAY [facility] Number: Effective Repository Date:2017-11-01 08/21/2017 Shagufta J Primary Shagufta J Sh[place] [id number] Insurance:MEDICARE TottenDOB: Community [facility] PART A BPolicy Number: [id number] [id number] Repository [address]Vid: (684) Date:2017-08-21 [phone] () 08/21/2017 Secondary Shagufta J Shayla Insurance:HUMANA TottenDOB: [facility] [id number] Hospital Number: Repository [id number] Date:6386-24-10SL [address] [address]IC: 08/21/2017 Tertiary NOT GIVENUNK Shayla Insurance:SELF PAY [facility] Number: Effective Repository Date:2017-08-21 08/13/2017 Shagufta J Primary Shagufta J Sh[place] [id number] Insurance:MEDICARE TottenDOB: [facility] PART A BPolicy Number: [id number], [place] [id number] Repository [address]Oig: ([phone]) Date:2017-08-13 [phone] () 08/13/2017 Secondary Shagufta J Shayla Insurance:HUMANA TottenDOB: [facility] [id number] Hospital Number: Repository [id number] Date:3742-42-83SL [address] [address]EO: 08/13/2017 Tertiary NOT GIVENUNK [place] Insurance:SELF PAY [facility] Number: Effective Repository Date:2017-08-13 06/05/2017 Shagufta J Primary Shagufta J Shayla [id number] Insurance:MEDICARE TottenDOB: [facility] PART A BPolicy Number: [id number], [place] [id number] Repository [address]Owz: (330) Date:2017-06-05 [phone] () 06/05/2017 Secondary Shagufta J [place] Insurance:HUMANA TottenDOB: [facility] [id number] Hospital Number: Repository [id number] Date:9534-15-43AZ [address] [place] [address]JM: 06/05/2017 Tertiary NOT GIVENUNK Shayla Insurance:SELF PAY [facility] Number: Effective Repository Date:2017-06-05 05/22/2017 Shagufta J Primary Shagufta J [place] [id number] Insurance:MEDICARE TottenDOB: [facility] PART A BPolicy Number: [id number], [place] [id number] Repository [address]Qdk: (330) Date:2017-05-22 [phone] () 05/22/2017 Secondary Shagufta J Shayla Insurance:HUMANA TottenDOB: [facility] [id number] Hospital Number: Repository [id number] Date:4348-16-45BM [address] [place] [address]FL: 05/22/2017 Tertiary NOT GIVENUNK Shayla Insurance:SELF PAY [facility] Number: Effective Repository Date:2017-05-22
== END ==
PROVIDERS: Family Provider Family Medicine; PCP Family Medicine; Referring Provider Family Medicine; Visit Provider Family Medicine
DX: E03.9 Hypothyroidism, unspecified (principal); E78.5 Hyperlipidemia, unspecified; K59.00 Constipation, unspecified
CPT/HCPCS: 36415; 80061; 84439; 84443

== ENCOUNTER → 2018-05-05 06:33 | Outpatient (CLI) | payer MEDICARE, OTHER, SELFPAY ==
[2018-05-05 07:32] LABS: Absolute Lymphocyte Count 1.35 X10^3/ul (0.83-4.51); Absolute Neutrophil Count 2.7 X10^3/uL (2.0-7.7); Basophil# 0.03 X10^3/uL; Basophil% 0.7 % (0-1); Eosinophils% 2.2 % (0-5); Hematocrit 41.6 % (37-47); Hemoglobin 13.6 g/dl (12.0-15.0); Lymphocyte # 1.35 X10^3/ul (4.0); Lymphocyte % 29.3 % (19-41); Mean Corp Hgb Conc 32.7 g/gl (32-36); Mean Corpuscular Hgb 29.9 pg (27.0-32.0); Mean Corpuscular Volume 91.4 fL (81-99); Mean Platelet Vol. 9.6 fl (6.2-12.0); Monocyte# 0.46 X10^3/uL; Neutrophil # 2.66 X10^3/uL (2.7-7.7); Neutrophil % 57.6 % (47-70); Platelet Count 234 K/mm3 (150-450); RBC Distribution Width CV 14.9 % (11.6-14.6); RBC Distribution Width SD 48.8 fl (35.1-43.9); Red Blood Count 4.55 M/mm3 (4.2-5.4); White Blood Count 4.6 K/mm3 (4.4-11.0)
[2018-05-05 07:34] LABS: POSITIVE COUNT NO; POSITIVE DIFFERENTIAL NO; POSITIVE MORPHOLOGY NO
[2018-05-05 07:56] LABS: ALB/GLOB Ratio 1.3 RATIO (0.9-2.4); AST(SGOT) 31 U/L (15-37); Alanine Aminotransfer ALT/SGPT 30 U/L (13-56); Albumin, Serum 3.9 g/dL (3.2-5.0); Alkaline Phosphatase 74 U/L (45-117); Anion Gap 4 (5-15); BUN 17 mg/dL (7-18); BUN/Creat Ratio 20.8 RATIO (10-20); Calcium,Total 9.2 mg/dL (8.5-10.1); Chloride 108 mmol/L (98-107); Creatinine, Serum 0.82 mg/dL (0.55-1.02); EST Glomerular Filtration Rate 73 mL/min (>60); Est Glom Filt Rate - Afr Amer 88 mL/min (>60); Globulin 3.1 g/dL (2.2-4.2); Glucose 85 mg/dL (74-106); Potassium 3.9 mmol/L (3.5-5.1); Sodium Level 140 mmol/L (136-145)
== END ==
PROVIDERS: Family Provider Family Medicine; PCP Family Medicine; Referring Provider Internal Medicine Rheumatology; Visit Provider Internal Medicine Rheumatology
DX: M06.4 Inflammatory polyarthropathy (principal); M72.0 Palmar fascial fibromatosis [Dupuytren]; I10 Essential (primary) hypertension; Z79.899 Other long term (current) drug therapy
CPT/HCPCS: 36415; 80053; 85025

== ENCOUNTER → 2018-05-20 | Outpatient (CLI) | payer MEDICARE, OTHER, SELFPAY ==
[2018-05-20 08:52] LABS: Cholesterol 229 mg/dL (200); High Density Lipoprotein 77 mg/dL; T4 Free Direct 1.29 ng/dL (0.76-1.46); Thyroid Stim Hormone (TSH) 2.16 uIU/mL (0.358-3.74); Triglycerides 82 mg/dL; Very Low Density Lipoprotein 16 mg/dL (5-40)
== END | disposition home or self-care (01) ==
LOC: LAB 06:53
PROVIDERS: Family Provider Family Medicine; PCP Family Medicine; Referring Provider Family Medicine; Visit Provider Family Medicine
DX: E03.9 Hypothyroidism, unspecified (principal); E78.5 Hyperlipidemia, unspecified
CPT/HCPCS: 36415; 80061; 84439; 84443

== ENCOUNTER → 2018-08-05 | Outpatient (CLI) | payer MEDICARE, OTHER, SELFPAY ==
[2018-08-05 07:51] LABS: Absolute Lymphocyte Count 1.21 X10^3/ul (0.83-4.51); Absolute Neutrophil Count 2.7 X10^3/uL (2.0-7.7); Basophil# 0.03 X10^3/uL; Basophil% 0.7 % (0-1); Eosinophil# 0.08 X10^3/uL; Eosinophils% 1.8 % (0-5); Hematocrit 39.7 % (37-47); Hemoglobin 13.3 g/dl (12.0-15.0); Lymphocyte # 1.21 X10^3/ul (4.0); Lymphocyte % 27.4 % (19-41); Mean Corp Hgb Conc 33.5 g/gl (32-36); Mean Corpuscular Hgb 30.4 pg (27.0-32.0); Mean Corpuscular Volume 90.8 fL (81-99); Mean Platelet Vol. 9.4 fl (6.2-12.0); Monocyte# 0.42 X10^3/uL; Monocyte% 9.5 % (0-10); Neutrophil # 2.66 X10^3/uL (2.7-7.7); Neutrophil % 60.4 % (47-70); Platelet Count 219 K/mm3 (150-450); RBC Distribution Width CV 13.7 % (11.6-14.6); Red Blood Count 4.37 M/mm3 (4.2-5.4); White Blood Count 4.4 K/mm3 (4.4-11.0)
[2018-08-05 07:53] LABS: POSITIVE COUNT NO; POSITIVE DIFFERENTIAL NO; POSITIVE MORPHOLOGY NO
[2018-08-05 08:19] LABS: ALB/GLOB Ratio 1.2 RATIO (0.9-2.4); AST(SGOT) 33 U/L (15-37); Alanine Aminotransfer ALT/SGPT 31 U/L (13-56); Albumin, Serum 3.7 g/dL (3.2-5.0); Alkaline Phosphatase 81 U/L (45-117); Anion Gap 4 (5-15); BUN 16 mg/dL (7-18); BUN/Creat Ratio 17.4 RATIO (10-20); Calcium,Total 9.4 mg/dL (8.5-10.1); Chloride 107 mmol/L (98-107); Creatinine, Serum 0.92 mg/dL (0.55-1.02); EST Glomerular Filtration Rate 63 mL/min (>60); Est Glom Filt Rate - Afr Amer 76 mL/min (>60); Globulin 3.2 g/dL (2.2-4.2); Glucose 96 mg/dL (74-106); Potassium 3.9 mmol/L (3.5-5.1); Protein, Total 6.9 g/dL (6.4-8.2); Sodium Level 141 mmol/L (136-145)
[2018-08-05 16:15] LABS: Cholesterol 237 mg/dL (200); High Density Lipoprotein 76 mg/dL; T4 Free Direct 1.32 ng/dL (0.76-1.46); Triglycerides 73 mg/dL; Very Low Density Lipoprotein 15 mg/dL (5-40)
== END | disposition home or self-care (01) ==
LOC: LAB 06:37
PROVIDERS: Family Provider Family Medicine; PCP Family Medicine; Referring Provider Internal Medicine Rheumatology; Visit Provider Internal Medicine Rheumatology
DX: M06.4 Inflammatory polyarthropathy (principal); Z79.899 Other long term (current) drug therapy; M72.0 Palmar fascial fibromatosis [Dupuytren]; I10 Essential (primary) hypertension; H18.893 Other specified disorders of cornea, bilateral; E78.5 Hyperlipidemia, unspecified; I44.7 Left bundle-branch block, unspecified; E03.9 Hypothyroidism, unspecified
CPT/HCPCS: 36415; 80053; 80061; 84439; 84443; 85025

== ENCOUNTER → 2018-11-03 06:13 | Outpatient (CLI) | payer MEDICARE, OTHER, SELFPAY ==
[2018-11-03 07:09] LABS: Absolute Lymphocyte Count 1.44 X10^3/uL (0.83-4.51); Absolute Neutrophil Count 3.3 X10^3/uL (2.0-7.7); Basophil# 0.06 X10^3/uL; Basophil% 1.1 % (0-1); Eosinophil# 0.06 X10^3/uL; Eosinophils% 1.1 % (0-5); Hematocrit 40.5 % (37-47); Hemoglobin 13.3 g/dL (12.0-15.0); Lymphocyte # 1.44 X10^3/ul (4.0); Lymphocyte % 27.1 % (19-41); Mean Corp Hgb Conc 32.8 g/dL (32-36); Mean Corpuscular Volume 91.4 fL (81-99); Mean Platelet Vol. 9.6 fl (6.2-12.0); Monocyte# 0.46 X10^3/uL; Monocyte% 8.7 % (0-10); NRBC Flagged by Analyzer 0 % (0-5); Neutrophil # 3.27 X10^3/uL (2.7-7.7); Neutrophil % 61.6 % (47-70); Platelet Count 224 K/mm3 (150-450); RBC Distribution Width CV 13.7 % (11.6-14.6); RBC Distribution Width SD 45.4 fl (35.1-43.9); Red Blood Count 4.43 M/mm3 (4.2-5.4); White Blood Count 5.3 K/mm3 (4.4-11.0)
[2018-11-03 07:35] LABS: ALB/GLOB Ratio 1.2 RATIO (0.9-2.4); AST(SGOT) 31 U/L (15-37); Alanine Aminotransfer ALT/SGPT 30 U/L (13-56); Albumin, Serum 3.8 g/dL (3.2-5.0); Alkaline Phosphatase 63 U/L (45-117); Anion Gap 8 (5-15); BUN 18 mg/dL (7-18); BUN/Creat Ratio 22.1 RATIO (10-20); Calcium,Total 9.7 mg/dL (8.5-10.1); Chloride 108 mmol/L (98-107); Creatinine, Serum 0.81 mg/dL (0.55-1.02); EST Glomerular Filtration Rate 73 mL/min (>60); Est Glom Filt Rate - Afr Amer 88 mL/min (>60); Globulin 3.2 g/dL (2.2-4.2); Glucose 93 mg/dL (74-106); Potassium 4.1 mmol/L (3.5-5.1); Sodium Level 143 mmol/L (136-145)
== END ==
PROVIDERS: Family Provider Family Medicine; PCP Family Medicine; Referring Provider Internal Medicine Rheumatology; Visit Provider Internal Medicine Rheumatology
DX: M06.4 Inflammatory polyarthropathy (principal); Z79.899 Other long term (current) drug therapy; M72.0 Palmar fascial fibromatosis [Dupuytren]; I10 Essential (primary) hypertension
CPT/HCPCS: 36415; 80053; 85025

== ENCOUNTER → 2018-11-25 06:07 | Outpatient (CLI) | payer MEDICARE, OTHER, SELFPAY ==
[2018-11-25 08:24] LABS: Cholesterol 229 mg/dL (200); High Density Lipoprotein 72 mg/dL; Thyroid Stim Hormone (TSH) 0.31 uIU/mL (0.358-3.74); Triglycerides 89 mg/dL; Very Low Density Lipoprotein 18 mg/dL (5-40)
== END ==
LOC: LAB.FUTURE 06:09 → LAB 06:15
PROVIDERS: Family Provider Family Medicine; PCP Family Medicine; Referring Provider Family Medicine; Visit Provider Family Medicine
DX: E03.9 Hypothyroidism, unspecified (principal); E78.5 Hyperlipidemia, unspecified
CPT/HCPCS: 36415; 80061; 84439; 84443

== ENCOUNTER → 2019-01-19 06:03 | Outpatient (CLI) | payer MEDICARE, OTHER, SELFPAY ==
[2019-01-19 07:26] LABS: Absolute Lymphocyte Count 1.53 X10^3/uL (0.83-4.51); Absolute Neutrophil Count 2.8 X10^3/uL (2.0-7.7); Basophil# 0.07 X10^3/uL; Basophil% 1.4 % (0-1); Hematocrit 43.5 % (37-47); Hemoglobin 14.3 g/dL (12.0-15.0); Lymphocyte # 1.53 X10^3/ul (4.0); Mean Corp Hgb Conc 32.9 g/dL (32-36); Mean Corpuscular Hgb 30.3 pg (27.0-32.0); Mean Corpuscular Volume 92.2 fL (81-99); Mean Platelet Vol. 9.6 fl (6.2-12.0); Monocyte# 0.41 X10^3/uL; Monocyte% 8.3 % (0-10); NRBC Flagged by Analyzer 0 % (0-5); Neutrophil # 2.82 X10^3/uL (2.7-7.7); Neutrophil % 57.1 % (47-70); Platelet Count 280 K/mm3 (150-450); RBC Distribution Width CV 13.7 % (11.6-14.6); RBC Distribution Width SD 46.4 fl (35.1-43.9); Red Blood Count 4.72 M/mm3 (4.2-5.4); White Blood Count 4.9 K/mm3 (4.4-11.0)
[2019-01-19 07:56] LABS: ALB/GLOB Ratio 1.2 RATIO (0.9-2.4); AST(SGOT) 32 U/L (15-37); Alanine Aminotransfer ALT/SGPT 35 U/L (13-56); Albumin, Serum 4.1 g/dL (3.2-5.0); Alkaline Phosphatase 74 U/L (45-117); Anion Gap 2 (5-15); BUN 15 mg/dL (7-18); BUN/Creat Ratio 18.1 RATIO (10-20); Calcium,Total 9.6 mg/dL (8.5-10.1); Chloride 108 mmol/L (98-107); Creatinine, Serum 0.83 mg/dL (0.55-1.02); EST Glomerular Filtration Rate 71 mL/min (>60); Est Glom Filt Rate - Afr Amer 86 mL/min (>60); Globulin 3.3 g/dL (2.2-4.2); Glucose 95 mg/dL (74-106); Potassium 4.1 mmol/L (3.5-5.1); Protein, Total 7.4 g/dL (6.4-8.2); Sodium Level 140 mmol/L (136-145)
== END ==
PROVIDERS: Family Provider Family Medicine; PCP Family Medicine; Referring Provider Internal Medicine Rheumatology; Visit Provider Internal Medicine Rheumatology
DX: M06.4 Inflammatory polyarthropathy (principal); Z79.899 Other long term (current) drug therapy; M72.0 Palmar fascial fibromatosis [Dupuytren]; I10 Essential (primary) hypertension; H18.893 Other specified disorders of cornea, bilateral; E78.5 Hyperlipidemia, unspecified; I44.7 Left bundle-branch block, unspecified
CPT/HCPCS: 36415; 80053; 85025

== ENCOUNTER 2019-03-11 18:51 | Emergency (ER) | payer MEDICARE, OTHER, SELFPAY ==
[2019-03-11 18:51] VITALS: BP 176/104; PULSE 77; RESP 15; TEMP 36.9; O2SAT 98; BMI 16.7
--- NOTE | 2019-03-11 19:46 | CT_ITS ---
STUDY: CT BRAIN WITHOUT CONTRAST REASON FOR EXAM: Female, 73 years old. Trauma RADIATION DOSAGE (If Supplied By Facility): CTDIvol = ( 44.99 ) mGy, DLP = ( 796.11 ) mGycm TECHNIQUE: Transaxial CT imaging of the brain was performed without administration of intravenous contrast material. Individualized dose optimization techniques were used for this CT. COMPARISON: No relevant priors. FINDINGS: Normal soft tissue structures. Normal calvarium. There is mild cerebral atrophy with widening of the extra-axial spaces and ventricular dilatation. There are areas of decreased attenuation within the white matter tracts of the supratentorial brain, consistent with microvascular disease changes. Normal basal ganglia and thalami. Normal brainstem. There is mild cerebellar atrophy. There is no intracranial hemorrhage. There are no findings of an acute ischemic infarction. Normal visualized paranasal sinuses. CT/Brain/Head without Contrast IMPRESSION: Chronic involutional changes of the brain. No acute abnormality. Electronically Signed: Cruzito Rey MD at 20:29 EST , Service support ,
[2019-03-11] MEDS: Diphth,Pertuss(Acell),Tet Vac 0.5 ML Vial IM (19:53)
[2019-03-11] MEDS: Lidocaine/Epi/Tetracaine 50 ML 1 APPLIC TOPICAL (19:54)
--- NOTE | 2019-03-11 20:58 | ED.VIS.GEN ---
History of Present Illness Chief Complaint: Laceration Narrative: Patient was taking her trash out when she tripped and fell on some broken raised up concrete striking her head. No loss of consciousness she notes a laceration to the right forehead and bilateral hand abrasions. She denies being on any blood thinners. Unknown last tetanus. Past Medical History - Allergies and Home Meds Allergies/Adverse Reactions: Allergies codeine Allergy (Verified 03/11/19 18:57) Other simvastatin Allergy (Verified 03/11/19 18:57) Other Primary Care Physician: Russell Shannon DO [Primary Care Provider] - Surgical History: - - , skin cancer surgery Smoking Status: Never smoker Review of Systems General: Denies: Chills, Fever, Sweats Eyes: Denies: Visual changes - bilaterally, Diplopia ENT: Denies: Rhinorrhea, Sore throat Cardiovascular: Denies: Chest pain, Palpitations Respiratory: Denies: Dyspnea, Cough, Dyspnea on exertion Gastrointestinal: Denies: Abdominal pain, Nausea, Vomiting, Diarrhea, Melena, Hematochezia Genitourinary: Denies: Dysuria, Hematuria, Frequency Musculoskeletal: Denies: Back pain, Extremity Pain Skin: Denies: Rash, Wounds Neurological: Denies: Headache, Weakness, Numbness Physical Exam Vital Signs/Narrative: Vital Signs Temp Pulse Resp BP Pulse Ox 03/11/19 18:51 98.4 F 77 15 176/104 H 98 Inital Vital Signs reviewed: Yes General: Well nourished, Well developed, No Acute Distress Head: Normocephalic, Trauma - 5 cm curvilinear laceration above the right eyebrow. It gapes when she raises her eyebrows. No active bleeding. Eyes: Perrl, EOMI ENT: Moist mucous membranes, No rhinorrhea Neck: Supple, Nontender Cardiovascular: Regular rate, Regular rhythm, No murmurs Respiratory: No distress, CTA bilaterally, Chest nontender Abdomen: Soft, Nontender, Nondistended, Normal bowel sounds Back: Nontender, Normal Inspection Extremities: No edema, Tenderness - Tenderness to the bilateral PIP joints of each digit of each hand minus thumbs. There are associated abrasions. She has full range of motion Skin: Normal color, No rash Neurological: Alert, Oriented x3, Cranial nerves II-XII grossly intact, Normal Strength, Normal Sensation Psychological: Normal affect, Normal Mood Diagnostic/Tx/Re-eval - Medical Decision Making CT the brain was negative for intracranial hemorrhage or skull fracture. Wound was locally anesthetized using 1% lidocaine. It was washed with Shur-Clens and explored. It was closed using a total of 6 simple interrupted 6-0 Ethilon sutures. Wound care discussed with patient. Tetanus is updated with Adacel. Sutures will need to be removed in 7 days. ED Disposition - Plan for ED Patient: Disposition: Home or Assisted Living Diagnosis: Laceration of forehead, Hand abrasion Instructions: LACERATION, All Referrals: Russell Shannon DO [Primary Care Provider] - 7 Days for suture removal
[2019-03-11 21:05] VITALS: BP 156/88; PULSE 72; RESP 16; O2SAT 97
== END 2019-03-11 21:06 | disposition home or self-care (01) ==
PROVIDERS: Emergency Provider Emergency Medicine; PCP Family Medicine
DX: S01.111A Laceration without foreign body of right eyelid and periocular area, initial encounter (principal); S60.512A Abrasion of left hand, initial encounter; S60.511A Abrasion of right hand, initial encounter; W26.8XXA Contact with other sharp object(s), not elsewhere classified, initial encounter; Y93.9 Activity, unspecified; Y92.9 Unspecified place or not applicable; Z85.828 Personal history of other malignant neoplasm of skin
CPT/HCPCS: 12013; 70450; 90471; 90715; 99283

== ENCOUNTER → 2019-04-20 06:33 | Outpatient (CLI) | payer MEDICARE, OTHER, SELFPAY ==
[2019-04-20 07:39] LABS: Absolute Lymphocyte Count 1.52 X10^3/uL (0.83-4.51); Basophil# 0.05 X10^3/uL; Eosinophil# 0.12 X10^3/uL; Eosinophils% 2.4 % (0-5); Hematocrit 41.8 % (37-47); Lymphocyte # 1.52 X10^3/ul (4.0); Mean Corp Hgb Conc 33.5 g/dL (32-36); Mean Corpuscular Hgb 30.7 pg (27.0-32.0); Mean Corpuscular Volume 91.7 fL (81-99); Monocyte# 0.25 X10^3/uL; Monocyte% 5.1 % (0-10); NRBC Flagged by Analyzer 0 % (0-5); Neutrophil # 2.95 X10^3/uL (2.7-7.7); Neutrophil % 60.1 % (47-70); Platelet Count 273 K/mm3 (150-450); RBC Distribution Width CV 14.9 % (11.6-14.6); RBC Distribution Width SD 43.1 fl (35.1-43.9); Red Blood Count 4.56 M/mm3 (4.2-5.4); White Blood Count 4.9 K/mm3 (4.4-11.0)
[2019-04-20 08:07] LABS: ALB/GLOB Ratio 1.2 RATIO (0.9-2.4); AST(SGOT) 49 U/L (15-37); Alanine Aminotransfer ALT/SGPT 61 U/L (13-56); Albumin, Serum 4.1 g/dL (3.2-5.0); Alkaline Phosphatase 73 U/L (45-117); Anion Gap 7 (5-15); BUN 14 mg/dL (7-18); BUN/Creat Ratio 15.6 RATIO (10-20); Calcium,Total 9.7 mg/dL (8.5-10.1); Chloride 106 mmol/L (98-107); EST Glomerular Filtration Rate 65 mL/min (>60); Est Glom Filt Rate - Afr Amer 78 mL/min (>60); Globulin 3.4 g/dL (2.2-4.2); Glucose 113 mg/dL (74-106); Potassium 4.2 mmol/L (3.5-5.1); Protein, Total 7.5 g/dL (6.4-8.2); Sodium Level 142 mmol/L (136-145)
== END ==
PROVIDERS: PCP Family Medicine; Referring Provider Internal Medicine Rheumatology; Visit Provider Internal Medicine Rheumatology
DX: M06.4 Inflammatory polyarthropathy (principal); Z79.899 Other long term (current) drug therapy; M72.0 Palmar fascial fibromatosis [Dupuytren]; I10 Essential (primary) hypertension; H18.893 Other specified disorders of cornea, bilateral; E78.5 Hyperlipidemia, unspecified; I44.7 Left bundle-branch block, unspecified
CPT/HCPCS: 36415; 80053; 85025

== ENCOUNTER → 2019-06-22 09:52 | Outpatient (CLI) | payer MEDICARE, OTHER, SELFPAY ==
[2019-06-22 12:38] LABS: AST(SGOT) 33 U/L (15-37); Alanine Aminotransfer ALT/SGPT 27 U/L (13-56); Albumin, Serum 3.8 g/dL (3.2-5.0); Alkaline Phosphatase 80 U/L (45-117); Anion Gap 5 (5-15); BUN 16 mg/dL (7-18); BUN/Creat Ratio 17.1 RATIO (10-20); Calcium,Total 9.9 mg/dL (8.5-10.1); Chloride 104 mmol/L (98-107); Cholesterol 223 mg/dL (200); Creatinine, Serum 0.93 mg/dL (0.55-1.02); EST Glomerular Filtration Rate 62 mL/min (>60); Est Glom Filt Rate - Afr Amer 75 mL/min (>60); Globulin 3.7 g/dL (2.2-4.2); Glucose 108 mg/dL (74-106); High Density Lipoprotein 73 mg/dL; Potassium 3.8 mmol/L (3.5-5.1); Protein, Total 7.5 g/dL (6.4-8.2); Sodium Level 139 mmol/L (136-145); T4 Free Direct 1.49 ng/dL (0.76-1.46); Triglycerides 84 mg/dL; Very Low Density Lipoprotein 17 mg/dL (5-40)
== END ==
PROVIDERS: Family Provider Family Medicine; PCP Family Medicine; Visit Provider Internal Medicine Rheumatology
DX: M06.4 Inflammatory polyarthropathy (principal); Z79.899 Other long term (current) drug therapy; M72.0 Palmar fascial fibromatosis [Dupuytren]; I10 Essential (primary) hypertension; H18.893 Other specified disorders of cornea, bilateral; E78.5 Hyperlipidemia, unspecified; I44.7 Left bundle-branch block, unspecified; E03.9 Hypothyroidism, unspecified
CPT/HCPCS: 36415; 80053; 80061; 84439; 84443

== ENCOUNTER → 2019-07-07 09:22 | Outpatient (CLI) | payer MEDICARE, OTHER, SELFPAY ==
[2019-07-07 12:48] LABS: T4 Free Direct 1.34 ng/dL (0.76-1.46)
== END ==
PROVIDERS: PCP Family Medicine; Visit Provider Family Medicine
DX: E03.9 Hypothyroidism, unspecified (principal)
CPT/HCPCS: 36415; 84439; 84443

== ENCOUNTER → 2019-09-17 08:42 | Outpatient (CLI) | payer MEDICARE, OTHER, SELFPAY ==
[2019-09-17 12:53] LABS: Cholesterol 184 mg/dL (200); High Density Lipoprotein 67 mg/dL; T4 Free Direct 2.06 ng/dL (0.76-1.46); Thyroid Stim Hormone (TSH) 0.18 uIU/mL (0.358-3.74); Triglycerides 78 mg/dL; Very Low Density Lipoprotein 16 mg/dL (5-40)
== END ==
PROVIDERS: PCP Family Medicine; Visit Provider Family Medicine
DX: E03.9 Hypothyroidism, unspecified (principal); E78.5 Hyperlipidemia, unspecified
CPT/HCPCS: 36415; 80061; 84439; 84443

== ENCOUNTER → 2019-12-24 09:30 | Outpatient (CLI) | payer MEDICARE, OTHER, SELFPAY ==
[2019-12-24 12:55] LABS: Absolute Lymphocyte Count 1.26 X10^3/uL (0.83-4.51); Absolute Neutrophil Count 3.6 X10^3/uL (2.0-7.7); Basophil# 0.05 X10^3/uL; Basophil% 0.9 % (0-1); Eosinophil# 0.12 X10^3/uL; Eosinophils% 2.2 % (0-5); Hematocrit 38.5 % (37-47); Hemoglobin 11.8 g/dL (12.0-15.0); Lymphocyte # 1.26 X10^3/ul (4.0); Lymphocyte % 22.7 % (19-41); Mean Corp Hgb Conc 30.6 g/dL (32-36); Mean Corpuscular Volume 84.8 fL (81-99); Mean Platelet Vol. 9.5 fl (6.2-12.0); Monocyte# 0.48 X10^3/uL; Monocyte% 8.7 % (0-10); NRBC Flagged by Analyzer 0 % (0-5); Neutrophil # 3.62 X10^3/uL (2.7-7.7); Neutrophil % 65.3 % (47-70); Platelet Count 322 K/mm3 (150-450); RBC Distribution Width CV 15.1 % (11.6-14.6); RBC Distribution Width SD 46.2 fl (35.1-43.9); Red Blood Count 4.54 M/mm3 (4.2-5.4); White Blood Count 5.5 K/mm3 (4.4-11.0)
[2019-12-24 13:36] LABS: ALB/GLOB Ratio 0.9 RATIO (0.9-2.4); AST(SGOT) 42 U/L (15-37); Alanine Aminotransfer ALT/SGPT 48 U/L (13-56); Albumin, Serum 3.5 g/dL (3.2-5.0); Alkaline Phosphatase 98 U/L (45-117); Anion Gap 5 (5-15); BUN 13 mg/dL (7-18); BUN/Creat Ratio 14.3 RATIO (10-20); Calcium,Total 9.9 mg/dL (8.5-10.1); Chloride 107 mmol/L (98-107); Cholesterol 189 mg/dL (200); Creatinine, Serum 0.91 mg/dL (0.55-1.02); EST Glomerular Filtration Rate 64 mL/min (>60); Est Glom Filt Rate - Afr Amer 78 mL/min (>60); Globulin 4.1 g/dL (2.2-4.2); Glucose 99 mg/dL (74-106); High Density Lipoprotein 69 mg/dL; Protein, Total 7.6 g/dL (6.4-8.2); Sodium Level 141 mmol/L (136-145); T4 Free Direct 1.68 ng/dL (0.76-1.46); Thyroid Stim Hormone (TSH) 3.65 uIU/mL (0.358-3.74); Triglycerides 69 mg/dL; Very Low Density Lipoprotein 14 mg/dL (5-40)
== END ==
PROVIDERS: Internal Medicine Rheumatology; PCP Family Medicine; Visit Provider Family Medicine
DX: M06.4 Inflammatory polyarthropathy (principal); Z79.899 Other long term (current) drug therapy; M72.0 Palmar fascial fibromatosis [Dupuytren]; I10 Essential (primary) hypertension; H18.893 Other specified disorders of cornea, bilateral; E78.5 Hyperlipidemia, unspecified; I44.7 Left bundle-branch block, unspecified; E03.9 Hypothyroidism, unspecified
CPT/HCPCS: 36415; 80053; 80061; 84439; 84443; 85025

== ENCOUNTER 2020-04-29 14:58 | Outpatient (RCR) | payer MEDICARE, OTHER, SELFPAY ==
[2020-04-29] MEDS: COVID-19 VACC, MRNA(PFIZER)/PF 30 MCG/0.3 ML SYRINGE IM (12:17)
[2020-05-20] MEDS: COVID-19 VACC, MRNA(PFIZER)/PF 30 MCG/0.3 ML SYRINGE IM (11:57)
== END 2020-04-29 23:59 ==
LOC: IMMUN 14:58
PROVIDERS: PCP Family Medicine; Visit Provider Family Medicine
DX: Z23 Encounter for immunization (principal)
CPT/HCPCS: 0001A; 0002A; 91300

== ENCOUNTER → 2020-06-14 08:31 | Outpatient (CLI) | payer MEDICARE, OTHER, SELFPAY ==
[2020-06-14 10:04] LABS: Absolute Lymphocyte Count 1.42 X10^3/uL (0.83-4.51); Absolute Neutrophil Count 5.2 X10^3/uL (2.0-7.7); Basophil# 0.06 X10^3/uL; Basophil% 0.8 % (0-1); Eosinophil# 0.14 X10^3/uL; Eosinophils% 1.9 % (0-5); Hematocrit 43.1 % (37-47); Hemoglobin 13.6 g/dL (12.0-15.0); Lymphocyte # 1.42 X10^3/ul (0.83-4.51); Lymphocyte % 19.2 % (19-41); Mean Corp Hgb Conc 31.6 g/dL (32-36); Mean Corpuscular Hgb 27.4 pg (27.0-32.0); Mean Corpuscular Volume 86.7 fL (81-99); Mean Platelet Vol. 9.3 fl (6.2-12.0); Monocyte# 0.58 X10^3/uL; Monocyte% 7.8 % (0-10); NRBC Flagged by Analyzer 0 % (0-5); Neutrophil # 5.17 X10^3/uL (2.7-7.7); Platelet Count 305 K/mm3 (150-450); RBC Distribution Width CV 13.9 % (11.6-14.6); RBC Distribution Width SD 43.8 fl (35.1-43.9); Red Blood Count 4.97 M/mm3 (4.2-5.4); White Blood Count 7.4 K/mm3 (4.4-11.0)
[2020-06-14 10:35] LABS: AST(SGOT) 33 U/L (15-37); Alanine Aminotransfer ALT/SGPT 30 U/L (13-56); Albumin, Serum 3.9 g/dL (3.2-5.0); Alkaline Phosphatase 88 U/L (45-117); Anion Gap 3 (5-15); BUN 19 mg/dL (7-18); Calcium,Total 9.7 mg/dL (8.5-10.1); Chloride 105 mmol/L (98-107); EST Glomerular Filtration Rate 64 mL/min (>60); Est Glom Filt Rate - Afr Amer 78 mL/min (>60); Globulin 3.9 g/dL (2.2-4.2); Glucose 109 mg/dL (74-106); Potassium 4.3 mmol/L (3.5-5.1); Protein, Total 7.8 g/dL (6.4-8.2); Sodium Level 140 mmol/L (136-145)
== END ==
PROVIDERS: PCP Family Medicine; Referring Provider Internal Medicine Rheumatology; Visit Provider Internal Medicine Rheumatology
DX: M06.4 Inflammatory polyarthropathy (principal); Z79.899 Other long term (current) drug therapy; M72.0 Palmar fascial fibromatosis [Dupuytren]; I10 Essential (primary) hypertension; H18.893 Other specified disorders of cornea, bilateral; E78.5 Hyperlipidemia, unspecified; I44.7 Left bundle-branch block, unspecified
CPT/HCPCS: 36415; 80053; 85025

== ENCOUNTER → 2020-06-28 08:39 | Outpatient (CLI) | payer MEDICARE, OTHER, SELFPAY ==
[2020-06-28 11:04] LABS: Cholesterol 203 mg/dL (200); High Density Lipoprotein 75 mg/dL; T4 Free Direct 1.77 ng/dL (0.76-1.46); Thyroid Stim Hormone (TSH) 4.01 uIU/mL (0.358-3.74); Triglycerides 72 mg/dL; Very Low Density Lipoprotein 14 mg/dL (5-40)
== END ==
PROVIDERS: PCP Family Medicine; Referring Provider Family Medicine; Visit Provider Family Medicine
DX: E78.5 Hyperlipidemia, unspecified (principal); E03.9 Hypothyroidism, unspecified
CPT/HCPCS: 36415; 80061; 84439; 84443

== ENCOUNTER 2021-03-13 10:44 | Day surgery (SDC) | payer MEDICARE, OTHER, SELFPAY ==
--- NOTE | 2021-03-13 | LES_PTH ---
PATIENT: SHAGUFTA CHAVES LOC: [facility] U#:[id number] AGE/SX: 75/F ROOM: RE03/13/[address]: Dr. Sami Turner MD : 1945 BED: DIS: 03/13/2021 SPEC #: [id number] RECD: 03/13/21 13:30 STATUS: [place] REFarooq #: [id number] OLVIN: 03/13/21 00:[address]: Sami Turner DEPT: SURGICAL PATHOLOGY RECD BY: Phuong Flores ENTERED: 03/13/21 14:48 SP TYPE: Lesion OTHR DR: Dr. Russell Shannon DO Tissues: A - Skin of scalp, NOS B - Skin of scalp, NOS Procedures: Frozen Section (charge) Surgery Specimen Level IV HEADER OPERATION: Excision cutaneous horn lesion, frozen section PRE-OP DIAGNOSIS: 2 cm scabby cutaneous horn lesion left frontal scalp TISSUE SUBMITTED: A ? Scabby cutaneous horn lesion left frontal scalp, FS at 1328, B ? Additional margin basal cell carcinoma left frontal scalp FROZEN SECTION DIAGNOSIS A. Skin lesion of left frontal scalp, biopsy: Basal cell carcinoma. AM:fernando 03/13/2021 Case has been reviewed in consultation with Dr. Gross who concurs with the above diagnosis. IDC:SJ MICROSCOPIC DIAGNOSIS A. Skin lesion of left frontal scalp, biopsy: Basal cell carcinoma ulcerated, excised in planes examined. Extensive solar elastosis. B. Additional basal cell carcinoma margin left frontal scalp lesion, excision: Focal basal cell carcinoma, superficial. Extensive solar elastosis. See comment. AM:fernando 03/15/2021 COMMENT B. The lesion appears to have been completely excised in the planes examined. MICROSCOPIC DESCRIPTION Slides are reviewed. GROSS DESCRIPTION A - Received fresh for frozen section consultation labeled with the patient's name is a specimen designated lesion left frontal scalp. The specimen consists of an ulcerated fragment of julian-pink skin measuring 1.5 x 1.2 x 0.2 cm. The specimen is differentially inked as follows: 10 o?clock ? black, 3 o?clock ? red, 6 o?clock ? blue and 9 o?clock ? orange. The specimen is serially sectioned and totally submitted in one block for frozen section consultation. / AM:fernando 03/13/2021 B - Received in fixative is one container labeled with the patient's name and designated additional margin basal cell carcinoma left frontal scalp. The specimen consists of a ring of hair-bearing skin with attached soft tissue measuring 2 x 1 x 0.1 cm. A suture appears to be present on one edge. This section is inked in black ink. The remainder of the specimen is inked in yellow ink. The specimen is totally submitted in one cassette. / AM:fernando 03/14/2021 TC:0 CPT: 27487 x2, 42171
[2021-03-13 11:23] VITALS: BP 186/74; PULSE 82; RESP 18; TEMP 36.3; O2SAT 100; BMI 13.9
[2021-03-13] MEDS: Lactated Ringers 1,000 ML 15 ML IV ×2 (11:38→15:01)
--- NOTE | 2021-03-13 11:42 | PCM.HP.BLA ---
History and Physical Date of Admission: 03/13/21 HISTORY OF PRESENT ILLNESS 75 year old woman presents with a lesion on her left frontal scalp that has increased in size over the last several months. There is overlying scabbing and there is a cutaneous horn component to this lesion. She denies fever. She denies trauma. She denies recent infection. She presents at this time for further evaluation and treatment. PAST MEDICAL HISTORY Former smoker Neoplasm of skin of scalp PAST SURGICAL HISTORY History of thyroid surgery ALLERGIES codeine simvastatin MEDICATIONS folic acid 1 mg PO DAILY 06/05/13 [History Confirmed 03/07/21] peg 400-propylene glycol [Systane Gel] 1 drp OP DAILY 06/05/13 [History Confirmed 03/11/19] propranolol 60 mg PO DAILY #30 cap 06/08/13 [Rx Confirmed 03/07/21] levothyroxine 100 mcg tablet 50 mcg PO DAILY 03/07/21 [History Confirmed 03/07/21] losartan 25 mg tablet 100 mg PO DAILY tab 03/07/21 [History Confirmed 03/07/21] FAMILY HISTORY No pertinent family history SOCIAL HISTORY Smoking Status: Former smoker alcohol intake: current alcohol intake frequency: holidays/special occasions only substance use type: does not use REVIEW OF SYSTEMS General - Denies fever, fatigue, and weight loss. Eyes - Denies cataracts and glaucoma. ENT - Denies nasal congestion and sore throat. Endocrine - Denies excessive thirst and urination. Has heat and cold intolerance. Skin - Denies skin cancer. Has enlarging scabby lesion left frontal scalp with a cutaneous horn component. Musculoskeletal - Denies joint pain, joint stiffness, weakness of muscles and joints, back pain, and arthritis. Neuro - Denies headaches. Cardiovascular - Denies chest pain, fatigue, and shortness of breath with exertion. Psych - Denies anxiety and depression. Respiratory - Denies chronic cough and shortness of breath. Patient is a former smoker. Gastrointestinal - Denies nausea, vomiting, diarrhea, and constipation. Hematologic - Denies abnormal bruising and bleeding. Genitourinary - Denies hematuria and urinary frequency. PHYSICAL EXAMINATION General - Alert and Oriented HEENT - PERRL. EOMI. Throat is clear. On the left frontal scalp is a scabby lesion with a cutaneous horn component. Has irregular borders. No ulceration. It is slightly raised in configuration. Measures 2 cm. No other suspicious lesions noted. Neck - Supple and nontender. No cervical adenopathy. No suspicious lesions noted. Lungs - Clear to auscultation. Heart - Regular rate and rhythm. Abdomen - Soft and nondistended. Extremities - FROM. No axillary adenopathy. Radial pulses are palpable. No suspicious lesions noted. Neuro - CN II-XII grossly intact. Psych - Normal mood and affect. ASSESSMENT 1. 2 cm scabby cutaneous horn lesion left frontal scalp. 2. Former smoker. PLAN Patient has a scabby cutaneous horn lesion left frontal scalp. It is suspicious for carcinoma. Because it is a cutaneous horn lesion, a full thickness excision for biopsy is warranted since the focus of skin cancer would be at its base making a shave excision for biopsy incomplete. Surgery can be done under local anesthesia and IV sedation on an outpatient basis. After excision, reconstruction will be with skin grafting. Patient was informed of the risks and complications of the procedure including alternatives to surgery. These were discussed with the patient personally. Patient voices understanding and wishes to proceed. Some of the risks and complications were included in a form from the [employer] [employer]. We discussed the current risks associated with COVID-19. While it is understood that there is a community spread of COVID-19, the risk of dianelys COVID-19 while at [facility] ([facility]) is very low; however, the risk cannot be completely mitigated because of the community spread of the disease. We discussed in detail the risk of exposure to and/or potential harm posed by the COVID-19 virus with having a surgery/procedure at this time versus the risk of delaying the surgery/procedure. It is not possible to know either the risk of delaying the surgery or procedure or chance of getting an infection with perfect accuracy, but a joint decision was made to proceed at this time with the scheduled surgery/procedure as indicated on the consent form. Patient was notified that we will need to comply with any screening or testing [facility] wishes to perform or that surgery may be delayed for any positive results. Procedure Criteria Procedure Type: Elective COVID Risk Discussion: The surgeon/proceduralist and patient have discussed in detail the risk of exposure to and/or potential harm posed by the COVID-19 virus with having a surgery/procedure at this time versus the risk of delaying the surgery/procedure. It is not possible to know either the risk of delaying the surgery or procedure or chance of getting an infection with perfect accuracy, but a joint decision was made between the patient and the surgeon/proceduralist to proceed at this time with the scheduled surgery/procedure as indicated on the consent form.
[2021-03-13] MEDS: Lidocaine 1%/Epi 1:200 (30ml) 30 ML AMPUL (13:18)
[2021-03-13] MEDS: Mupirocin Ointment 22gm Tube 1 APPLIC (14:30)
--- NOTE | 2021-03-13 15:16 | PCM.OPRPT ---
Problems Associated Problem List Diagnoses (1) Basal cell carcinoma of scalp: (2) Neoplasm of skin of scalp: (3) Former smoker: Report of Operation Date of Procedure: 03/13/21 Pre-Operative Diagnosis: 1. 2 cm scabby cutaneous horn lesion left frontal scalp. 2. Former smoker. Post-Operative Diagnosis: 1. 2 cm ulcerated basal cell carcinoma left frontal scalp. 2. Former smoker. Surgery/Procedure Performed:: Excision 2 cm ulcerated basal cell carcinoma left frontal scalp with FTSG reconstruction from bilateral necks (14 cm2). Description of Surgical Findings:: 75 year old woman presents with a lesion on her left frontal scalp that has increased in size over the last several months. There is overlying scabbing and there is a cutaneous horn component to this lesion. She denies fever. She denies trauma. She denies recent infection. Patient was informed of the risks and complications of the procedure including alternatives to surgery. These were discussed with the patient personally. Patient voices understanding and wishes to proceed. Some of the risks and complications were included in a form from the [employer]. Frozen section scabby cutaneous horn left frontal scalp - basal cell carcinoma. Size of skin graft wound left frontal scalp - 4 x 3.5 cm or 14 cm2. Surgeon: Sami Turner machine steak tenderizer: Daylin Chris Type of Anesthesia: Local MAC (xylocaine with epinephrine and IV sedation.) Specimen's removed: 1. Scabby cutaneous horn lesion left frontal scalp to Pathology as a frozen section 2. Ulcerated basal cell carcinoma left frontal scalp to Pathology. Drains: None. Estimated Blood Loss (mL): 25. Description of Procedure: Patient was taken to OR in supine position and was given IV sedation. The scalp and neck areas were prepped and draped in the usual fashion. SCD's were placed for DVT prophylaxis. Perioperative antibiotics were given intravenously. The scabby lesion left anterior scalp was infiltrated with xylocaine and epinephrine. After waiting 5 minutes for the anesthetic to take effect, the cutaneous horn lesion was excised in a circular full thickness fashion into the subcutaneous tissue. It was excised with a couple mm margin in all directions thus making it a 2.4 cm excision. A suture was placed at 12 oclock position for pathology orientation. The lesion was then sent to Pathology as a frozen section for analysis to rule out carcinoma. Frozen section showed a basal cell carcinoma. So further excision will be done to obtain the proper margin. It was a 2 cm lesion so we will use a 1 cm margin in all directions. After the excision a suture was placed at 12 oclock position for pathology orientation. The lesion was then sent to Pathology to rule out carcinoma at the margins. The size of the left frontal scalp defect was 4 x 3.5 cm or 14 cm2. The wound was irrigated with saline. Hemostasis was obtained with electrocautery. I went ahead and made an oblique elliptical incision in the right neck down into the subcutaneous tissue. The subcutaneous tissue was removed from the undersurface of the dermis thus fashioning a full thickness skin graft. When taking the skin graft to the back table to put in saline, I let go of the hemostat too soon and the skin graft fell off the sterile field. I made a decision to try and salvage the graft by placing it in sterile Betadine. It was left soaking for 15 minutes. I temporarily picked up the graft and placed it in the wound. About 60% of the wound was covered with the graft. So I decided to take an additional skin graft from the left neck. The skin graft was then placed back in the Betadine for another 15 minutes I then addressed the donor site wound right neck. The right neck wound was closed in a layered fashion with 5-0 Monocryl interrupted sutures for the deep dermis and subcutaneous tissue. The skin was approximated with 5-0 Prolene simple interrupted sutures. I went ahead and made an oblique elliptical incision in the left neck down into the subcutaneous tissue. The subcutaneous tissue was removed from the undersurface of the dermis thus fashioning a full thickness skin graft. The skin graft was placed in saline. The donor site wound left neck was then closed in a layered fashion. I first irrigated the wound with saline. Hemostasis was obtained with electrocautery. The deep dermis and subcutaneous tissue was approximated with 5-0 Monocryl interrupted sutures. The skin was approximated with 5-0 Prolene simple interrupted sutures. The skin graft was then placed in the basal cell carcinoma wound defect left frontal scalp and secured to the skin edges with 5-0 Chromic simple interrupted sutures. 5-0 Chromic sutures were also placed for central quilting stabilization. I used the second skin graft from the left neck first. About 2/3 of the wound was covered. I then used the first skin graft from the right neck to finish closing the wound defect. This was the graft that needed additional washing with Betadine because it fell off the sterile field. Antibiotic ointment was placed on the skin graft followed by Xeroform gauze and cotton balls soaked in saline and secured to the skin edges with 4-0 Nylon tie over stent suture dressing. For the donor site wounds bilateral neck, antibiotic ointment was placed on the suture lines followed by gauze and an Op-site dressing. Patient tolerated the procedure well and was sent to PACU in satisfactory condition. Patient will be sent home on antibiotics and pain medication. Patient will followup in a week for takedown of the skin graft dressing and a wound check and for discussion of the pathology report. The donor site sutures will be removed in 7-10 days. Grafts/Implants Used: None. Complications None. Admit VTE Documentation VTE Present on Admission: No VTE Mechan Device Prophylaxis: SCD's VTE Pharm Prophylaxis ordered?: No Addendum Addendum: Surgery Charges CPT - 62189 ICD-10 - C44.41, D49.2, Z87.891 76388 C44.41, D49.2, Z87.891
[2021-03-13 15:20] VITALS: BP 157/75; BP 186/74; PULSE 89; RESP 16; TEMP 36.6; O2SAT 100
[2021-03-13 15:25] VITALS: BP 146/84; BP 186/74; PULSE 72; RESP 16; O2SAT 99
[2021-03-13 15:30] VITALS: BP 170/70; BP 186/74; PULSE 72; RESP 16; O2SAT 99
[2021-03-13 15:35] VITALS: BP 162/74; BP 186/74; PULSE 76; RESP 16; TEMP 36.6; O2SAT 98
--- NOTE | 2021-03-13 15:44 | PCM.DC ---
Discharge Instructions Diet Discharge Diet: No restrictions Activity Discharge Activity: May Not Drive and May Shower (from the neck down. Then wash your face in the sink. Do not remove the skin graft dressing scalp) May shower in (days): 2 May resume sexual activity in: No Restrictions Weight Bearing Status: Weight bearing as tolerated Lifting Restrictions: 10 lbs. Keep extremity elevated above heart level: - (elevate head.) Dressing / Incision Call your doctor if your incision/area has: Continuous Slow Oozing, Sudden Increased Bleeding, Increased Pain/ Swelling, Increased Redness, Foul Smelling Discharge and Swelling at the incision site Call your doctor if you observe: Fever of 101 or Higher, Coldness, Increased Pain, Shortness of breath, Chest pain, Calf discomfort and Uncontrolled pain Suture Line Care: - (Wound vac will be placed tomorrow) Change Dressing in: 2 days (the operative dressings may be removed in the neck area. Then apply antibiotic ointment to the suture line daily.) Remove Dressing in: 1 week (Will remove the skin graft dressing scalp in the office.) Cleanse incision/area with: - Follow Up Care Please Follow Up With: Sami Turner MD When: one week. call [phone] for appt. Test Results: Test results from this visit will be discussed in further detail at your follow-up appointment, if applicable. Discharge Plan Admission Primary Reason for Your Visit: excision basal cell carcinoma left frontal scalp Attending Provider: Sami Turner Primary Care Provider: Russell Shannon Discharge Orders/Prescriptions Prescriptions: New clindamycin HCl [Cleocin HCl] 300 mg capsule 300 mg PO TID Qty: 21 RF: 0 L.acidoph,saliva-B.bif-S.therm [Acidophilus Probiotic Blend] 175 mg capsule 1 cap PO DAILY Qty: 20 RF: 0 oxycodone-acetaminophen [Percocet] 2.5-325 mg tablet 1 tab PO Q6H PRN (Reason: pain (scale score 7-10)) 7 Days Qty: 28 RF: 0 No Action levothyroxine 100 mcg tablet 50 mcg PO DAILY RF: 0 losartan 25 mg tablet 100 mg PO QHS RF: 0 levothyroxine 50 mcg Capsule 100 mcg PO IGNACIO RF: 0 vitamin Q11-uxabk acid 500-400 mcg Tablet 1 tab PO DAILY RF: 0 propranolol 60 MG capsule,extended release 24 hr 60 mg PO QHS RF: 0 Other Ambulatory Orders: COVID 19 AG RAPID (RN COLLECT) (Routine) Timeframe: [id number] Facility: [facility] - Location: Laboratory Ordered By: Dr. Patrick Borjas Referrals / Follow Up: Russell Shannon DO [Primary Care Provider] - Disposition Disposition (needs filled in before D/C Order can be placed): Home, Self Care
[2021-03-13 16:20] VITALS: BP 186/74
== END 2021-03-13 23:59 | disposition home or self-care (01) ==
LOC: SDC 10:46 → AC 10:47
PROVIDERS: PCP Family Medicine; Referring Provider Surgery; Visit Provider Surgery
PROC: (CPT 11624; principal; 2021-03-13 12:15)
DX: C44.41 Basal cell carcinoma of skin of scalp and neck (principal); L57.8 Other skin changes due to chronic exposure to nonionizing radiation; R03.0 Elevated blood-pressure reading, without diagnosis of hypertension; E03.9 Hypothyroidism, unspecified; Z79.899 Other long term (current) drug therapy; Z87.891 Personal history of nicotine dependence
CPT/HCPCS: 11624; 15220; 00300; 87426; 88305; 88331; J7120

== ENCOUNTER → 2022-08-28 | Outpatient (CLI) | payer MEDICARE, SELFPAY ==
[2022-08-28 18:18] LABS: Absolute Lymphocyte Count 1.36 X10^3/uL (0.83-4.51); Absolute Neutrophil Count 4.3 X10^3/uL (2.0-7.7); Basophil# 0.06 X10^3/uL; Basophil% 0.9 % (0-1); Eosinophil# 0.25 X10^3/uL; Eosinophils% 3.8 % (0-5); Hemoglobin 13.7 g/dL (12.0-15.0); Lymphocyte # 1.36 X10^3/ul (0.83-4.51); Lymphocyte % 20.9 % (19-41); Mean Corp Hgb Conc 31.9 g/dL (32-36); Mean Corpuscular Hgb 28.8 pg (27.0-32.0); Mean Corpuscular Volume 90.5 fL (81-99); Mean Platelet Vol. 10.2 fl (6.2-12.0); Monocyte% 7.7 % (0-10); NRBC Flagged by Analyzer 0 % (0-5); Neutrophil # 4.33 X10^3/uL (2.7-7.7); Neutrophil % 66.5 % (47-70); Platelet Count 275 K/mm3 (150-450); RBC Distribution Width CV 12.9 % (11.6-14.6); RBC Distribution Width SD 42.6 fl (35.1-43.9); Red Blood Count 4.75 M/mm3 (4.2-5.4); White Blood Count 6.5 K/mm3 (4.4-11.0)
[2022-08-28 18:40] LABS: Vitamin B12 723 pg/mL (211-911)
[2022-08-28 19:13] LABS: ALB/GLOB Ratio 1.1 RATIO (0.9-2.4); AST(SGOT) 36 U/L (15-37); Alanine Aminotransfer ALT/SGPT 34 U/L (13-56); Alkaline Phosphatase 85 U/L (45-117); Anion Gap 6 (5-15); BUN 24 mg/dL (7-18); BUN/Creat Ratio 22.4 RATIO (10-20); Calcium,Total 10.4 mg/dL (8.5-10.1); Chloride 105 mmol/L (98-107); Creatinine, Serum 1.07 mg/dL (0.55-1.02); EST Glomerular Filtration Rate 53 mL/min (>60); Est Glom Filt Rate - Afr Amer 64 mL/min (>60); Ferritin 81 ng/mL (8-252); Globulin 3.6 g/dL (2.2-4.2); Glucose 99 mg/dL (74-106); Iron 48 ug/dL (50-170); LDH 257 U/L (84-246); Potassium 3.7 mmol/L (3.5-5.1); Prealbumin 25.5 mg/dL (20.0-40.0); Protein, Total 7.6 g/dL (6.4-8.2); Sodium Level 141 mmol/L (136-145); T4 Free Direct 1.38 ng/dL (0.76-1.46)
== END | disposition home or self-care (01) ==
PROVIDERS: PCP Family Medicine; Referring Provider Family Medicine; Visit Provider Family Medicine
DX: I10 Essential (primary) hypertension (principal); R63.4 Abnormal weight loss; E03.9 Hypothyroidism, unspecified; D64.9 Anemia, unspecified
CPT/HCPCS: 36415; 80053; 82607; 82728; 83540; 83615; 84134; 84439; 84443; 85025

== ENCOUNTER → 2022-09-25 | Outpatient (CLI) | payer MEDICARE, SELFPAY ==
[2022-09-25 17:55] LABS: Ionized Calcium 5.38 mg/dL (4.36-5.20)
[2022-09-25 18:18] LABS: Vitamin D,25 Hydroxy 34.3 ng/mL
[2022-09-25 18:29] LABS: T4 Free Direct 1.31 ng/dL (0.76-1.46); Thyroid Stim Hormone (TSH) 9.04 uIU/mL (0.358-3.74)
[2022-09-25 23:42] LABS: Ionized Calcium Order ORDER TUBE
[2022-09-28 12:09] LABS: Vitamin D 1,25-Dihydroxy 53.1 pg/mL (24.8-81.5)
== END | disposition home or self-care (01) ==
PROVIDERS: PCP Family Medicine; Referring Provider Family Medicine; Visit Provider Family Medicine
DX: E83.52 Hypercalcemia (principal); E03.9 Hypothyroidism, unspecified
CPT/HCPCS: 36415; 82306; 82330; 82652; 83970; 84439; 84443

== ENCOUNTER → 2022-11-26 | Outpatient (CLI) | payer MEDICARE, SELFPAY ==
[2022-11-26 17:54] LABS: Calcium,Total 10.2 mg/dL (8.5-10.1); T4 Free Direct 1.15 ng/dL (0.76-1.46)
[2022-11-27 08:17] LABS: PTHIN 68.9 pg/mL (18.4-80.1)
[2022-11-29 12:09] LABS: Free Kappa Light Chains 27.9 mg/L (3.3-19.4); Free Lambda Light Chains 11.2 mg/L (5.7-26.3); PROEL- A/G Ratio 1.4 (0.7-1.7); PROEL- Albumin 3.9 g/dL (2.9-4.4); PROEL- Alpha-1 Globulin 0.3 g/dL (0.0-0.4); PROEL- Alpha-2 Globulin 0.7 g/dL (0.4-1.0); PROEL- Gamma Globulin 0.9 g/dL (0.4-1.8); PROEL- Globulin, Total 2.8 g/dL (2.2-3.9); PROEL- TOTAL PROTEIN 6.7 g/dL (6.0-8.5); PROEL-M-Spike Not Observed g/dL (Not Observed); PROELU- Albumin, Urine 53.6 % (.); PROELU- Alpha-1-Globulin,Ur 3.9 % (.); PROELU- Beta Globulin, Ur 18.9 % (.); PROELU- Gamma Globulin, Ur 12.6 % (.); Total Protein, Ur 18.3 mg/dL (Not Estab.)
== END | disposition home or self-care (01) ==
LOC: BFHLAB 14:20
PROVIDERS: PCP Family Medicine; Referring Provider Family Medicine; Visit Provider Family Medicine
DX: E83.52 Hypercalcemia (principal)
CPT/HCPCS: 36415; 82310; 83883; 83970; 84165; 84166; 84439; 84443

== ENCOUNTER → 2023-03-04 | Outpatient (CLI) | payer MEDICARE, SELFPAY ==
[2023-03-04 18:13] LABS: AST(SGOT) 34 U/L (15-37); Alanine Aminotransfer ALT/SGPT 28 U/L (13-56); Albumin, Serum 3.6 g/dL (3.2-5.0); Alkaline Phosphatase 93 U/L (45-117); Anion Gap 3 (5-15); BUN 25 mg/dL (7-18); BUN/Creat Ratio 28.2 RATIO (10-20); Chloride 106 mmol/L (98-107); Creatinine, Serum 0.89 mg/dL (0.55-1.02); EST Glomerular Filtration Rate 65 mL/min (>60); Est Glom Filt Rate - Afr Amer 79 mL/min (>60); Globulin 3.6 g/dL (2.2-4.2); Glucose 100 mg/dL (74-106); Potassium 4.2 mmol/L (3.5-5.1); Protein, Total 7.2 g/dL (6.4-8.2); Sodium Level 140 mmol/L (136-145); T4 Free Direct 1.66 ng/dL (0.76-1.46); Thyroid Stim Hormone (TSH) 1.02 uIU/mL (0.358-3.74)
[2023-03-04 18:20] LABS: Carboxyhemoglobin Frac (CO) 2.1 % (0.0-1.5); Ionized Calcium 5.27 mg/dL (4.36-5.20)
[2023-03-04 23:55] LABS: Ionized Calcium Order ORDER TUBE
== END | disposition home or self-care (01) ==
LOC: BFHLAB 15:53
PROVIDERS: PCP Family Medicine; Visit Provider Family Medicine
DX: E83.52 Hypercalcemia (principal); E03.9 Hypothyroidism, unspecified; I10 Essential (primary) hypertension
CPT/HCPCS: 36415; 80053; 82330; 82375; 83970; 84439; 84443

== ENCOUNTER → 2023-07-02 | Outpatient (CLI) | payer MEDICARE, SELFPAY ==
[2023-07-02 15:51] LABS: Absolute Neutrophil Count 4.4 X10^3/uL (2.0-7.7); Basophil# 0.05 X10^3/uL; Basophil% 0.8 % (0-1); Eosinophil# 0.15 X10^3/uL; Eosinophils% 2.3 % (0-5); Hematocrit 40.9 % (37-47); Hemoglobin 12.6 g/dL (12.0-15.0); Lymphocyte % 20.1 % (19-41); Mean Corp Hgb Conc 30.8 g/dL (32-36); Mean Corpuscular Hgb 27.5 pg (27.0-32.0); Mean Corpuscular Volume 89.3 fL (81-99); Mean Platelet Vol. 10.5 fl (6.2-12.0); Monocyte# 0.57 X10^3/uL; Monocyte% 8.8 % (0-10); NRBC Flagged by Analyzer 0 % (0-5); Neutrophil # 4.38 X10^3/uL (2.7-7.7); Neutrophil % 67.8 % (47-70); Platelet Count 261 K/mm3 (150-450); RBC Distribution Width CV 14.3 % (11.6-14.6); RBC Distribution Width SD 46.3 fl (35.1-43.9); Red Blood Count 4.58 M/mm3 (4.2-5.4); White Blood Count 6.5 K/mm3 (4.4-11.0)
[2023-07-02 16:12] LABS: ALB/GLOB Ratio 0.9 RATIO (0.9-2.4); AST(SGOT) 34 U/L (15-37); Alanine Aminotransfer ALT/SGPT 25 U/L (13-56); Albumin, Serum 3.3 g/dL (3.2-5.0); Alkaline Phosphatase 84 U/L (45-117); Anion Gap 5 (5-15); BUN 23 mg/dL (7-18); BUN/Creat Ratio 24.9 RATIO (10-20); Calcium,Total 10.3 mg/dL (8.5-10.1); Chloride 107 mmol/L (98-107); Creatinine, Serum 0.92 mg/dL (0.55-1.02); EST Glomerular Filtration Rate 62 mL/min (>60); Est Glom Filt Rate - Afr Amer 75 mL/min (>60); Globulin 3.6 g/dL (2.2-4.2); Glucose 87 mg/dL (74-106); Potassium 3.8 mmol/L (3.5-5.1); Protein, Total 6.9 g/dL (6.4-8.2); Sodium Level 142 mmol/L (136-145); T4 Free Direct 1.51 ng/dL (0.76-1.46); Thyroid Stim Hormone (TSH) 0.83 uIU/mL (0.358-3.74)
== END | disposition home or self-care (01) ==
PROVIDERS: PCP Family Medicine; Referring Provider Family Medicine; Visit Provider Family Medicine
DX: R41.3 Other amnesia (principal); R53.83 Other fatigue; E83.52 Hypercalcemia; E03.9 Hypothyroidism, unspecified; I10 Essential (primary) hypertension
CPT/HCPCS: 36415; 80053; 84439; 84443; 85025

== ENCOUNTER → 2023-09-13 | Outpatient (CLI) | payer MEDICARE, SELFPAY ==
--- NOTE | 2023-09-13 09:12 | BI_ITS ---
MAMMOGRAPHY - BILATERAL SCREENING REASON FOR EXAM: Female, 78 years old. Routine annual screening examination. PERTINENT HISTORY: Non-contributory. TECHNIQUE: Digital bilateral breast radha (3D mammographic acquisition) in the CC and MLO projections. 2-D mediolateral oblique (MLO) and craniocaudad (CC) views of both breasts were obtained. CAD: Full Field Digital Mammography with Computer Added Detection was performed. COMPARISON: None. FINDINGS: Breast Composition: The breasts are extremely dense, which lowers the sensitivity of mammography. Large mass in the upper outer quadrant of the right breast with a large amount of the microcalcification and deformity of the right breast. Biopsy is strongly recommended. No other significant abnormalities are identified. BI/DIAG MAMM W/CAD, BILAT IMPRESSION: Large mass in the right breast with large number of microcalcifications. Biopsy recommended. ASSESSMENT CATEGORY: BIRADS Category 5: Highly Suggestive of Malignancy - Appropriate Action Should Be Taken. A letter regarding these results will be sent to the patient by the facility within 30 days. Approximately 10% of breast cancers are not detected by mammography. A normal mammogram should not delay biopsy of a clinically suspicious abnormality. [id number] Electronically Signed: Jean-Claude Najera MD at 10:13 EDT ,
== END | disposition home or self-care (01) ==
PROVIDERS: PCP Family Medicine; Referring Provider Nurse Practitioner Family; Visit Provider Nurse Practitioner Family
DX: R92.8 Other abnormal and inconclusive findings on diagnostic imaging of breast (principal)
CPT/HCPCS: 77062; 77066; G0279

== ENCOUNTER → 2023-09-17 | Outpatient (CLI) | payer MEDICARE, OTHER, SELFPAY ==
--- NOTE | 2023-09-17 | IMM_PTH ---
PATIENT: SHAGUFTA CHAVES LOC: [facility] U#:[id number] AGE/SX: 78/F ROOM: RE09/17/[address]: Dr. Priyanka Cook MD : 1945 BED: DIS: 09/17/2023 SPEC #: [id number] RECD: 09/19/23 11:50 STATUS: SOUT REQ #: [id number] OLVIN: 09/17/23 00:[address]: Priyanka Cook DEPT: IMMUNOHISTOCHEMISTRY RECD BY: Rodolfo Londono ENTERED: 09/19/23 11:51 SP TYPE: IMMUNO OTHR DR: Dr. Russell Shannon, DO Tissues: Right breast, NOS Procedures: Calponin-1(initial) CD31 (add) CK5-6 (add) CK8 (add) E-CAD (add) HER2 JACI (add) KI-67 (add) P53 (add) NM (add) FACTOR VIII (add) P40 (add) MOC-31 (add) ER (initial) PHYSICIAN & [address] [address] SPECIMEN INFORMATION: Tissue Source: Right breast mass Clinical Info: Right breast mass Specimen Number: [id number] CPT code: 81887,75704s8,[id number] METHODOLOGY: Deparaffinized sections of prefer/formalin-fixed tissue or PAP/DQ stained slides are incubated with monoclonal/polyclonal antibodies/oligonucleotide probes. Localization is made via biotin free immunoperoxidase method. Appropriate controls are performed and reacted as expected. Results on target cell population are indicated in the following table: RESULTS: ANTIBODY / CLONE RESULT P53 (DO-7) negative, null pattern Ki-67 (30-9) positive, 85% CK8 (93aqhfS99) positive CK5-6 (D5 & 1684) positive, focal Calponin-1 (AC065L) negative P40 (BC28) negative E-Cad (ECH-6) positive MOC-31 (4561) positive Factor VIII (R Ag) negative CD31 (MICHAEL/70A) negative MORPHOMETRIC ANALYSIS ER (clone 6F11) 0% NM (clone 16/1E2) 0% Her-2Neu (clone CB11) 2+ IN SITU HYBRIDIZATION (NATALIA) FOR HER2 Interpretation: Negative/ Not Amplified HER2 : CEP-17 Ratio: 1.28 Average HER2 Signal: 2.7 Average CEP-17 Signal: 2.1 Number of Tumor Cells Scanned: 50 Interpretative Information: The INFORM HER2 Dual NATALIA DNA Probe Cocktail assay is performed on formalin-fixed paraffin embedded tissue and determines HER2 gene status by detecting HER2 copies via silver in situ hybridization (SISH) and Chromosome 17 copies via chromogenic red in situ hybridization on tumor cells. A minimum of 20 cells representing > 10% of contiguous and homogeneous invasive tumor cells were analyzed. HER2 gene status is classified as Non-amplified (HER2/Chr17 ratio < 2.0) or Amplified (HER2/Chr17 ratio greater than or equal to 2.0). If the resulting HER2/Chr17 ratio falls within 1.8 - 2.2 (Borderline), retesting by FISH is recommended. Reference: Barbie AC, Karie STAUFFER, Carey DG, et al: Recommendations for Human Epidermal Growth Factor Receptor 2 Testing in Breast Cancer: [place] Society of Clinical Oncology / College of [place] [employer] Clinical Practice Guideline Update. J Clin Oncol 31:1372-2054, 2013. The prognostic test for HER2 is performed on formalin-fixed paraffin embedded tissue. A 3+ (positive) staining pattern is defined as intense, homogeneous, complete, circumferential membranous staining in >10% of contiguous tumor cells. A similar weak (2+) staining pattern is interpreted as equivocal. NATALIA follow-up testing is recommended for all equivocal cases. Positivity/negativity for ER/NM is reported if > or < 1% of the tumor cells are immuno- reactive, respectively. The ASCO/CAP criteria is used for scoring. Reference: Journal of Clinical Oncology, 2013; 31:0774-4004 & 2010; 16:9123-0510. Ischemic time: Less than one hour. Duration of fixation: 7 Hrs; Sample Adequate: Yes. These assays have not been validated on decalcified tissues. Results should be interpreted with caution given the likelihood of false negativity on decalcified specimens or fixation greater than 72 hours. Alternative testing methods (FISH/dualISH for Her2; gene expression for ER) are recommended, if applicable. Please notify the laboratory if additional testing is required. These tests were developed and their performance characteristics determined by [facility]. They may not have been cleared or approved by the U.S. Food and Drug Administration. The FDA has determined that such clearance or approval is not necessary. The above immunohistochemical/dualISH markers are ordered and reviewed by the Pathologist. The test for HER 2 is performed on formalin-fixed paraffin embedded tissue using the CB11 mouse monoclonal antibody (Cell Panopto). A 3+ staining pattern is interpreted as positive and is defined as a strong membranous staining involving the entire cell membrane in over 30% of invasive tumor cells. A similar weak staining pattern (2+) involving 10% of the tumor cells is interpreted as equivocal. HER 2 follow-up testing by FISH is recommended for all equivocal results. Reference: [place] Society of Clinical Oncology and the College of [place] [employer] (J. Clin. Oncol. 23: 118-145, 2007). 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 Negative for estrogen receptors (unfavorable prognostic indicator). Negative for progesterone receptors (unfavorable prognostic indicator). Negative for overexpression of HCT4lbz. Case has been reviewed in consultation with Dr. Gross who concurs with the above diagnosis. IDC:ALEC REAL/ 09/20/2023
--- NOTE | 2023-09-17 12:30 | BRBX_PTH ---
PATIENT: SHAGUFTA CHAVES LOC: [facility] U#:[id number] AGE/SX: 78/F ROOM: RE09/17/[address]: Dr. Priyanka Cook MD : 1945 BED: DIS: 09/17/2023 SPEC #: [id number] RECD: 09/17/23 15:19 STATUS: [place] REQ #: [id number] OLVIN: 09/17/23 12:[address]: Priyanka Cook DEPT: SURGICAL PATHOLOGY RECD BY: Graciela Gutierrez ENTERED: 09/18/23 07:22 SP TYPE: BREAST BX OTHR DR: Dr. Russell Shannon, DO Tissues: Right breast, NOS Procedures: Surgery Specimen Level IV HEADER OPERATION: Biopsy of right breast mass PRE-OP DIAGNOSIS: Right breast mass TISSUE SUBMITTED: Right breast mass- likely cancer Ischemic Time: 1 minute Fixation Time: 7 hours MICROSCOPIC DIAGNOSIS Right breast mass, core biopsy: Invasive ductal carcinoma. See cancer synoptic report below. AM/mr 09/19/2023 COMMENT INVASIVE BREAST CANCER SUMMARY: Procedure: Needle core biopsy Specimen Laterality: Right breast Tumor site: Right breast Histologic type: Invasive ductal carcinoma Provisional Histologic grade: 2 Tubule Differentiation Score: 3 Nuclear Pleomorphism Score: 2 Mitotic Rate Score: 1 Tumor Size ( greatest dimension): 9.5mm Ductal Carcinoma In situ: Not present Angiolymphatic Invasion: Not identified Microcalcifications: Not present Additional Findings: Mild chronic inflammation Breast Marker Study: [id number] ER: 0% KS: 0% Her2:Equivocal (1-2+) Ki67: 85% Her2 Dual NATALIA: Not Amplified/Negative The above summary is in compliance with [employer] of [place] [employer] (CAP) Cancer Protocols Checklist and [place] Joint Committee on Cancer (AJCC), Staging Manual, 8th Ed. Case has been reviewed in consultation with Dr. Gross who concurs with the above diagnosis. IDC:[id number] MICROSCOPIC DESCRIPTION Slides are reviewed. GROSS DESCRIPTION Received in fixative is one container labeled with the patient's name and designated Right breast mass. The specimen consists of two elongated fragments of julian-yellow fibroadipose tissue measuring in aggregate 1.5 x 0.2 x 0.1cm. The entire specimen is submitted in one cassette. ALEC/ 09/18/2023 TC:0 CPT:88770
== END | disposition home or self-care (01) ==
LOC: LABSPEC 15:44
PROVIDERS: PCP Family Medicine; Referring Provider Surgery; Visit Provider Surgery
DX: N63.10 Unspecified lump in the right breast, unspecified quadrant (principal)
CPT/HCPCS: 81002; 88305; 88341; 88342

== ENCOUNTER 2023-12-31 05:43 | Emergency (ER) | payer MEDICARE, OTHER, SELFPAY ==
[2023-12-31 05:46] VITALS: BP 200/73; PULSE 61; RESP 16; TEMP 36.9; O2SAT 98; BMI 15.4
--- NOTE | 2023-12-31 05:51 | EX.ED.DYSGE1 ---
HPI <Dr. Vincent Brumfield, DO - Last Filed: 12/31/23 07:02> History of Present Illness Chief Complaint: Confusion PFSH <Dr. Vincent Brumfield, DO - Last Filed: 12/31/23 07:02> PFS Medical History Basal cell carcinoma of scalp Wears glasses Cancer Forgetfulness Anxiety Thyroid disease Arthritis Difficulty swallowing Former smoker Hypertension History of echocardiogram History of stress test Former smoker Neoplasm of skin of scalp Home Medications ?Medication ?Instructions ?Recorded ?Last Taken ?Type levothyroxine 100 mcg tablet 50 mcg PO DAILY 03/07/21 03/13/21 History losartan 25 mg tablet 100 mg PO QHS 03/07/21 Unknown History levothyroxine 50 mcg capsule 100 mcg PO IGNACIO 03/10/21 Unknown History propranolol 60 mg capsule,24 60 mg PO QHS 03/10/21 Unknown History hr,extended release vitamin B12 500 mcg-folic acid 400 1 tab PO DAILY 03/10/21 Unknown History mcg tablet donepezil 10 mg tablet 10 mg PO DAILY 09/17/23 Unknown History memantine 5 mg tablet 5 mg PO QAM 09/17/23 Unknown History Allergy/AdvReac Type Severity Reaction Status Date / Time codeine Allergy Other Verified 12/31/23 05:45 simvastatin Allergy Other Verified 12/31/23 05:45 Family History Mother Hypertension CVA (cerebral vascular accident) Other No pertinent family history Surgical History History of basal cell carcinoma excision History of local excision of skin lesion History of cystoscopy Hx of submandibular gland removal Hx of tubal ligation Hx of total thyroidectomy History of thyroid surgery Social History Smoking Status: Former smoker alcohol intake: current alcohol intake frequency: holidays/special occasions only details: 1 glass of wine substance use type: does not use additional social history: Does Not Take Aspirin Does Not Take Ibuprofen EXAM <Dr. Vincent Brumfield, DO - Last Filed: 12/31/23 07:02> Physical Exam Const Vital Signs: 12/31/23 05:46 12/31/23 07:45 Temperature 98.4 F Temperature Source Oral Pulse Rate 61 66 Respiratory Rate 16 12 Blood Pressure 200/73 H 174/66 H Blood Pressure Mean 115 102 Pulse Ox 98 99 Oxygen Delivery Method Room Air Room Air <Dr. Isrrael Farah MD - Last Filed: 12/31/23 08:45> Physical Exam Const Vital Signs: 12/31/23 05:46 12/31/23 07:45 Temperature 98.4 F Temperature Source Oral Pulse Rate 61 66 Respiratory Rate 16 12 Blood Pressure 200/73 H 174/66 H Blood Pressure Mean 115 102 Pulse Ox 98 99 Oxygen Delivery Method Room Air Room Air [facility] <Dr. Vincent Brumfield DO - Last Filed: 12/31/23 07:02> [facility] Narrative Medical decision making narrative: HISTORY OF PRESENT ILLNESS: 78-year-old female presents with concern for change in mental status. The patient states that they told her to come in. When asked who they are she suggests it was the EMS personnel that she called. She does not describe any physical symptoms other than I feel like shit. Patient denies any headaches, chest pain, vomiting, diarrhea, urinary complaints, shortness of breath, leg swelling, syncope. REVIEW OF SYSTEMS: Pertinent positives: confusion Pertinent negatives: Chest pain, fever, abdominal pain, difficulty urinating, focal weakness PHYSICAL EXAM: Nursing triage notes reviewed, Vital signs reviewed Constitutional: please see [facility] HENT: MMM, large mass noted to scalp Eyes: Pupils equal round and reactive to light, Extraocular muscles intact Neck: No stridor, no JVD, full neck ROM Lungs: Clear to auscultation, No wheezing or rales. No increased work of breathing, no conversational dyspnea, no accessory muscle use, no nasal flaring. No respiratory distress noted Heart: Regular rate and rhythm, No murmurs, No rubs and No gallops, 2+ distal pulses (radial, femoral, posterior tibial) in all extremities Abdomen: Soft, there is no tenderness, rigidity, rebound or guarding, no obvious peritoneal signs, no palpable pulsatile abdominal masses, no auscultated abdominal bruit : No CVAT Extremities: No edema Neuro: No focal neurological deficits, patient was alert to person and place but not time. Cranial nerves II through XII intact, 5/5 strength in all extremities. Intact sensation to light touch in all extremities, 2+ reflexes bilateral patella tendons. Skin: No rash or lesions noted MEDICAL DECISION MAKING: Chief Complaint: confusion External records reviewed: Reviewed prior allergies, problem list, home medications. Baseline mental status documented thousand 20 is alert and orient x 3 Factors affecting care: Breast cancer, rheumatoid arthritis Social determinants of health: Former smoker History obtained from others: EMS Consults: Likely internal medicine MDM Narrative: The patient was initially hemodynamically stable, hypertensive otherwise afebrile and nontoxic-appearing. Exam without focal neurologic deficits I considered the following differential diagnosis: ICH, arrhythmia, anemia, electrolyte disturbance, metabolic or infectious encephalopathy ALL IMAGES (IF OBTAINED) HAVE BEEN PERSONALLY REVIEWED AND INTERPRETED BY MYSELF. EKG with sinus bradycardia rate of 57, left axis deviation, normal intervals, no obvious STEMI. Similar morphology to prior reviewed from 2013 CBC without leukocytosis, severe anemia, no thrombocytopenia. BMP without evidence of significant electrolyte abnormalities, no anion gap, no acute kidney injury. LFTs show no evidence of hepatobiliary pathology. I have personally reviewed the patient's chest x-ray. Chest x-ray is unremarkable for pulmonary edema, pneumothorax, pneumonia or focal cardiopulmonary abnormality. High-sensitivity troponin is negative, no evidence of myocardial ischemia The patient and/or family, caregivers express understanding. The patient and/or family, caregivers agrees with the plan. Shared decision making: I will have a discussion with the patient and or visitors regarding risk/benefits of further testing or admission. They will be made aware of of the risk/benefits inherent in this decision they will be given the opportunity to voice understanding. Total critical care time today provided was at least 0 minutes. This excludes separately billable procedures. Critical care time (if documented) is secondary to the patient having high probability of clinically significant/life threatening deterioration in the patient's condition which required my urgent intervention. Impression: 1. Altered mental status 2. Poorly controlled hypertension Signed out to a.m. physician pending CT scan of the head, urinalysis and final disposition Dispo: pending CT and dispo likely admit This note was generated with [employer] dictation software. It may contain incorrect words, spelling, and punctuation that were not noted in review of the chart prior to signing. Lab Data Labs: Laboratory Results - last 24 hr 12/31/23 12/31/23 06:17 06:56 WBC 10.0 RBC 4.41 Hgb 12.7 Hct 39.4 MCV 89.3 MCH 28.8 MCHC 32.2 RDW Std Deviation 44.1 H RDW Coeff of Andrew 13.4 Plt Count 244 MPV 9.7 Sodium 143 Potassium 3.7 Chloride 109 H Carbon Dioxide 31.0 Anion Gap 3 L BUN 21 H Creatinine 1.02 Estim Creat Clear Calc 29.17 Est GFR (MDRD) Af Amer 67 Est GFR (MDRD) Non-Af 55 L BUN/Creatinine Ratio 20.6 H Glucose 124 H Calcium 9.4 Total Bilirubin 0.50 AST 26 ALT 24 Alkaline Phosphatase 99 Troponin I High Sens 14 Total Protein 6.8 Albumin 3.3 Globulin 3.5 Albumin/Globulin Ratio 0.9 Urine Color Yellow Urine Clarity Cloudy Urine pH 7.0 Ur Specific [employer] 1.010 Urine Protein 30 H Urine Glucose (UA) Normal Urine Ketones Negative Urine Occult Blood 25 H Urine Nitrite Negative Urine Bilirubin Negative Urine Urobilinogen Normal Ur Leukocyte Esterase 500 H Urine RBC 0 SEEN Urine WBC 5-10 SEEN Ur Squamous Epith Cells 0 SEEN Amorphous Sediment 3+ PHOS Urine Bacteria 0 SEEN Urine Mucus 0 SEEN Radiography Diagnostic Testing: Clinical Impression(s) from Imaging Studies Brain CT 12/31/23 06:09 IMPRESSION: Extensive cutaneous abnormalities overlying the right frontal and parietal bones. No associated lytic osseous lesion. Atrophy with chronic small vessel ischemic changes; no acute intracranial abnormality. Electronically Signed: Cristi Stewart MD at 7:25 EST Reading Location ID and State: [facility] / [place] Tel , Service support , Chest X-Ray 12/31/23 06:40 IMPRESSION: Findings of pulmonary emphysema. No acute cardiopulmonary disease process identified. Electronically Signed: Cristi Stewart MD at 7:28 EST , <Dr. Isrrael Farah MD - Last Filed: 12/31/23 08:45> [facility] Lab Data Labs: Laboratory Results - last 24 hr 12/31/23 12/31/23 06:17 06:56 WBC 10.0 RBC 4.41 Hgb 12.7 Hct 39.4 MCV 89.3 MCH 28.8 MCHC 32.2 RDW Std Deviation 44.1 H RDW Coeff of Andrew 13.4 Plt Count 244 MPV 9.7 Sodium 143 Potassium 3.7 Chloride 109 H Carbon Dioxide 31.0 Anion Gap 3 L BUN 21 H Creatinine 1.02 Estim Creat Clear Calc 29.17 Est GFR (MDRD) Af Amer 67 Est GFR (MDRD) Non-Af 55 L BUN/Creatinine Ratio 20.6 H Glucose 124 H Calcium 9.4 Total Bilirubin 0.50 AST 26 ALT 24 Alkaline Phosphatase 99 Troponin I High Sens 14 Total Protein 6.8 Albumin 3.3 Globulin 3.5 Albumin/Globulin Ratio 0.9 Urine Color Yellow Urine Clarity Cloudy Urine pH 7.0 Ur Specific [employer] 1.010 Urine Protein 30 H Urine Glucose (UA) Normal Urine Ketones Negative Urine Occult Blood 25 H Urine Nitrite Negative Urine Bilirubin Negative Urine Urobilinogen Normal Ur Leukocyte Esterase 500 H Urine RBC 0 SEEN Urine WBC 5-10 SEEN Ur Squamous Epith Cells 0 SEEN Amorphous Sediment 3+ PHOS Urine Bacteria 0 SEEN Urine Mucus 0 SEEN Urinalysis unremarkable and there is no evidence of infection. Radiography Diagnostic Testing: Clinical Impression(s) from Imaging Studies Brain CT 12/31/23 06:09 IMPRESSION: Extensive cutaneous abnormalities overlying the right frontal and parietal bones. No associated lytic osseous lesion. Atrophy with chronic small vessel ischemic changes; no acute intracranial abnormality. Electronically Signed: Cristi Stewart MD at 7:25 EST , Chest X-Ray 12/31/23 06:40 IMPRESSION: Findings of pulmonary emphysema. No acute cardiopulmonary disease process identified. Electronically Signed: Cristi Stewart MD at 7:28 EST , Treatment and Re-Evaluation :: Plan member at bedside. Patient has been confused. The lesions that were noted on the CAT scan have been present for years and secondary to radiation treatment. She received radiation treatment to treat acne when she was young. She feels comfortable going home. Since she is at baseline and she feels comfortable going home and family reversed feel comfortable taking her home will discharge to home son did state that there is agency that comes out to the house. He states is unusual for her to call the ambulance instead of him. She states she got nervous and reason she called paramedics. Based on this new information from family in my opinion patient is safe to go home. Patient was diagnosed this past October with breast cancer. She underwent radiation therapy. With regards to this both the family and patient states this is stable. Discharge Plan Triage Chief Complaint: Confusion ED Provider: Vincent Brumfield Dx/Rx/DC Orders Clinical Impression: Chronic confusion, Rheumatoid arthritis, Hyperlipemia, Basal cell carcinoma of scalp, Breast cancer, right breast Instructions: ED Confusion Prescriptions: No Action memantine 5 mg tablet 5 mg PO QAM donepezil 10 mg tablet 10 mg PO DAILY levothyroxine 100 mcg tablet 50 mcg PO DAILY Patient Comments: thyroid medication Rx Instructions: Take 2 Doses on Saturday losartan 25 mg tablet 100 mg PO QHS Patient Comments: blood pressure levothyroxine 50 mcg Capsule 100 mcg PO IGNACIO vitamin [id number] acid 500-400 mcg Tablet 1 tab PO DAILY propranolol 60 MG capsule,extended release 24 hr 60 mg PO QHS Patient Comments: heart/blood pressure Primary Care Provider: Russell Shannon Referrals: Russell Shannon DO [Primary Care Provider] - 1-2 Weeks Print Language: Occitan Disposition Disposition: Home, Self Care
--- NOTE | 2023-12-31 06:09 | CT_ITS ---
EXAM: CT HEAD WITHOUT INTRAVENOUS CONTRAST CLINICAL INDICATION: confusion, AMS TECHNIQUE: Multiple axial images were obtained of the head without intravenous contrast. This CT exam was performed using one or more of the following dose reduction techniques: automated exposure control, adjustment of the mA and/or kV according to patient size, and/or use of iterative reconstruction technique. RADIATION DOSE: Total DLP: 880.47 mGy-cm. COMPARISON: CT of 03/11/2019. FINDINGS: BRAIN AND EXTRA-AXIAL SPACES: Findings of mild/moderate cerebral atrophy are noted with prominence of cortical sulci, basal cisterns, sylvian fissures and ventricles. Mild cerebellar atrophy also noted. Patchy chronic small vessel ischemic changes are noted within the deep white matter tracts. No intra- or extra-axial hemorrhage. No intracranial mass or mass effect. Waters-white matter differentiation is preserved. BONES/JOINTS: No linear or depressed skull fracture. No lytic osseous lesion. SOFT TISSUES: A broad cutaneous defect overlies the superior right frontal and parietal lobes, with surrounding irregular skin thickening, secondary to trauma versus cutaneous neoplasm. Additional mild soft tissue swelling overlies the left frontal sinus and right temporal bone. VASCULATURE: Atherosclerotic vascular calcification is present. The middle cerebral arteries are not hyperdense. SINUSES: Unremarkable as visualized. Clear. MASTOID AIR CELLS: Unremarkable. Clear. ORBITS: Visualized globes, extraocular muscles, optic nerves and retrobulbar fat appear unremarkable. CT/Brain/Head without Contrast IMPRESSION: Extensive cutaneous abnormalities overlying the right frontal and parietal bones. No associated lytic osseous lesion. Atrophy with chronic small vessel ischemic changes; no acute intracranial abnormality. Electronically Signed: Cristi Stewart MD at 7:25 EST ,
--- NOTE | 2023-12-31 06:10 | EKG12_ITS ---
Test Reason : CONFUSION Blood Pressure : */* mmHG Vent. Rate : 57 BPM Atrial Rate : 57 BPM P-R Int : 140 ms QRS Dur : 124 ms QT Int : 430 ms P-R-T Axes : 86 -30 91 degrees QTcB Int : 418 ms Sinus bradycardia Left axis deviation Left ventricular hypertrophy with QRS widening ( Thornton product , Romhilt-Rodriguez ) Cannot rule out Septal infarct , age undetermined Abnormal ECG Confirmed by ADAMARIS POPE, MARINA ([id number]), film or videotape editor SHANNON MONSALVE ([id number]) on 12/31/2023 1:54:17 PM Referred By: Confirmed By: MARINA BAILON MD
[2023-12-31 06:29] LABS: Hematocrit 39.4 % (37-47); Hemoglobin 12.7 g/dL (12.0-15.0); Mean Corp Hgb Conc 32.2 g/dL (32-36); Mean Corpuscular Hgb 28.8 pg (27.0-32.0); Mean Corpuscular Volume 89.3 fL (81-99); Mean Platelet Vol. 9.7 fl (6.2-12.0); Platelet Count 244 K/mm3 (150-450); RBC Distribution Width CV 13.4 % (11.6-14.6); RBC Distribution Width SD 44.1 fl (35.1-43.9); Red Blood Count 4.41 M/mm3 (4.2-5.4)
--- NOTE | 2023-12-31 06:38 | ED.RN ---
Patient's son called, unable to reach, left voicemail. Pt wanted son Alcides to be called.
--- NOTE | 2023-12-31 06:40 | RAD_ITS ---
EXAM: XR CHEST, 1 VIEW CLINICAL INDICATION: confusion TECHNIQUE: Frontal view of the chest. COMPARISON: Previous chest radiograph of 06/05/2013. FINDINGS: LUNGS AND PLEURAL SPACES: Lungs remain hyperinflated. No acute pulmonary infiltrates. No pneumothorax. No effusion. HEART: Normal heart size. Chronic pruning of the peripheral pulmonary vascular markings. No pulmonary vascular congestion. MEDIASTINUM: Thoracic aorta remains minimally elongated and calcific. BONES/JOINTS: Thoracic degenerative spurring. No acute osseous abnormality. SOFT TISSUES: Surgical clip projected within the right lower neck. RAD/Chest 1 View (Portable) IMPRESSION: Findings of pulmonary emphysema. No acute cardiopulmonary disease process identified. Electronically Signed: Cristi Stewart MD at 7:28 EST ,
[2023-12-31 06:45] LABS: ALB/GLOB Ratio 0.9 RATIO (0.9-2.4); AST(SGOT) 26 U/L (15-37); Alanine Aminotransfer ALT/SGPT 24 U/L (13-56); Albumin, Serum 3.3 g/dL (3.2-5.0); Alkaline Phosphatase 99 U/L (45-117); Anion Gap 3 (5-15); BUN 21 mg/dL (7-18); BUN/Creat Ratio 20.6 RATIO (10-20); Calcium,Total 9.4 mg/dL (8.5-10.1); Chloride 109 mmol/L (98-107); Creatinine, Serum 1.02 mg/dL (0.55-1.02); EST Glomerular Filtration Rate 55 mL/min (>60); Est Glom Filt Rate - Afr Amer 67 mL/min (>60); Estimated Creatinine Clearance 29.17 ml/min; Globulin 3.5 g/dL (2.2-4.2); Glucose 124 mg/dL (74-106); Potassium 3.7 mmol/L (3.5-5.1); Protein, Total 6.8 g/dL (6.4-8.2); Sodium Level 143 mmol/L (136-145); Troponin-I HS 14 pg/mL (3.0-54.0)
[2023-12-31 07:02] LABS: Bacteria 0 SEEN /hpf (None Seen); Mucous, Urine 0 SEEN /hpf (<or=2+); Red Blood Cells-Urine 0 SEEN /hpf (0-5); Squamous Epithelial Cells - UA 0 SEEN /hpf (5-10)
[2023-12-31] MEDS: Losartan Potassium 100 MG Tablet PO (07:07)
[2023-12-31 07:23] LABS: Color, Urine Yellow (Yellow); Glucose, Dipstick Normal (Normal); Ketone-Dipstick Negative (Negative); Leukocyte Esterase-Dipstick 500 /ul (Negative); Nitrite-Dipstick Negative (Negative); Occult Blood-Urine 25 /ul (Negative); Protein-Dipstick 30 mg/dl (Negative); Urine Bilirubin Dipstick Negative (Negative); Urine Clarity Cloudy (Clear); Urine Urobilinogen Normal (Normal)
[2023-12-31 07:45] VITALS: BP 174/66; PULSE 66; RESP 12; O2SAT 99
[2023-12-31 08:25] LABS: Amorphous Sediment 3+ PHOS; White Blood Cells 5-10 SEEN /hpf (0-5)
[2023-12-31 09:00] VITALS: BP 122/100; PULSE 97; RESP 16; TEMP 36.1; O2SAT 99
== END 2023-12-31 09:23 | disposition home or self-care (01) ==
PROVIDERS: Emergency Provider Emergency Medicine; PCP Family Medicine; Visit Provider Emergency Medicine
DX: R41.82 Altered mental status, unspecified (principal); M06.9 Rheumatoid arthritis, unspecified; C50.911 Malignant neoplasm of unspecified site of right female breast; I10 Essential (primary) hypertension; Z87.891 Personal history of nicotine dependence; C44.41 Basal cell carcinoma of skin of scalp and neck; E78.5 Hyperlipidemia, unspecified; Z79.899 Other long term (current) drug therapy; Z98.51 Tubal ligation status
CPT/HCPCS: 70450; 71045; 80053; 81001; 84484; 85027; 93005; 99285; A4216

== ENCOUNTER → 2024-08-07 | Outpatient (CLI) | payer MEDICARE, OTHER, SELFPAY ==
[2024-08-07 12:42] LABS: Absolute Lymphocyte Count 0.98 X10^3/uL (0.83-4.51); Absolute Neutrophil Count 5.8 X10^3/uL (2.0-7.7); Basophil# 0.08 X10^3/uL; Eosinophil# 0.34 X10^3/uL; Eosinophils% 4.3 % (0-5); Hematocrit 38.6 % (37-47); Hemoglobin 12.1 g/dL (12.0-15.0); Lymphocyte # 0.98 X10^3/ul (0.83-4.51); Lymphocyte % 12.5 % (19-41); Mean Corp Hgb Conc 31.3 g/dL (32-36); Mean Corpuscular Hgb 27.1 pg (27.0-32.0); Mean Corpuscular Volume 86.5 fL (81-99); Mean Platelet Vol. 9.6 fl (6.2-12.0); Monocyte# 0.63 X10^3/uL; NRBC Flagged by Analyzer 0 % (0-5); Neutrophil % 73.8 % (47-70); Platelet Count 323 K/mm3 (150-450); RBC Distribution Width CV 13.4 % (11.6-14.6); RBC Distribution Width SD 42.4 fl (35.1-43.9); Red Blood Count 4.46 M/mm3 (4.2-5.4); White Blood Count 7.9 K/mm3 (4.4-11.0)
[2024-08-07 13:15] LABS: ALB/GLOB Ratio 1.3 RATIO (0.9-2.4); AST(SGOT) 43 U/L (<=31); Alanine Aminotransfer ALT/SGPT 26 U/L (<=34); Alkaline Phosphatase 84 U/L (35-104); Anion Gap 12 (5-15); BUN 22 mg/dL (4-19); BUN/Creat Ratio 22.5 RATIO (10-20); Calcium,Total 10.4 mg/dL (7.6-11.0); Carbon Dioxide 25.3 mmol/L (21.0-32.0); Chloride 104 mmol/L (98-108); Creatinine, Serum 0.98 mg/dL (0.70-1.20); EST Glomerular Filtration Rate 58 (>60); Globulin 3.1 g/dL (2.2-4.2); Glucose 89 mg/dL (70-99); Potassium 3.9 mmol/L (3.3-5.1); Protein, Total 7.1 g/dL (5.9-8.4); Sodium Level 142 mmol/L (133-145)
== END | disposition home or self-care (01) ==
LOC: BFHLAB 11:14
PROVIDERS: PCP Family Medicine; Visit Provider Family Medicine
DX: I10 Essential (primary) hypertension (principal); E03.9 Hypothyroidism, unspecified; E83.52 Hypercalcemia
CPT/HCPCS: 36415; 80053; 84439; 84443; 85025

== ENCOUNTER 2024-10-18 17:16 | Inpatient (IN) | payer MEDICARE, OTHER, SELFPAY ==
[2024-10-18 17:16] VITALS: BP 139/69; PULSE 56; RESP 14; TEMP 36.6; O2SAT 97; BMI 13.9
--- NOTE | 2024-10-18 17:24 | EDS_ITS ---
HPI History of Present Illness Chief Complaint: Confusion [facility] Medical History Basal cell carcinoma of scalp Wears glasses Cancer Forgetfulness Anxiety Thyroid disease Arthritis Difficulty swallowing Former smoker Hypertension History of echocardiogram History of stress test Former smoker Neoplasm of skin of scalp Home Medications ?Medication ?Instructions ?Recorded ?Last Taken ?Type levothyroxine 100 mcg tablet 50 mcg PO DAILY 03/07/21 03/13/21 History losartan 25 mg tablet 100 mg PO QHS 03/07/21 Unkno wn History levothyroxine 50 mcg capsule 100 mcg PO IGNACIO 03/10/21 Un known History propranolol 60 mg capsule,24 60 mg PO QHS 03/10/21 Unk nown History hr,extended release vitamin B12 500 mcg-folic acid 400 1 tab PO DAILY 02/12 10/02 Unknown History mcg tablet donepezil 10 mg tablet 10 mg PO DAILY 09/17/23 Unkn own History memantine 5 mg tablet 5 mg PO BID 09/17/23 Unknown History levothyroxine 75 mcg tablet 75 mcg PO DAILY 10/18/24 U nknown History losartan 100 mg tablet 100 mg PO DAILY 10/18/24 Unk nown History sertraline 50 mg tablet 50 mg PO DAILY 10/18/24 Unkn own History Allergy/AdvReac Type Severity Reaction Status Date / Time codeine Allergy Other Verified 10/18/24 17:16 simvastatin Allergy Other Verified 10/18/24 17:16 Family History Mother Hypertension CVA (cerebral vascular accident) Other No pertinent family history Surgical History History of basal cell carcinoma excision History of local excision of skin lesion History of cystoscopy Hx of submandibular gland removal Hx of tubal ligation Hx of total thyroidectomy History of thyroid surgery Social History (Updated 10/18/24 @ 17:40 by Bernadette Ponce) housing: house Smoking Status: Former smoker alcohol intake: current alcohol intake frequency: holidays/special occasions only details: 1 glass of wine substance use type: does not use additional social history: Does Not Take Aspirin Does Not Take Ibuprofen EXAM Physical Exam Const Vital Signs: 10/18/24 17:16 10/18/24 17:40 10/18/24 18:45 Temperature 97.8 F 98.6 F 98.7 F Temperature Source Oral Oral Temporal Pulse Rate 56 L 58 L 62 Respiratory Rate 14 20 H 18 Blood Pressure 139/69 H 132/80 H 128/88 H Blood Pressure Mean 92 97 101 Pulse Ox 97 99 100 Oxygen Delivery Method Room Air Room Air 10/18/24 19:23 10/18/24 20:00 Temperature 97.9 F 97.9 F Temperature Source Oral Pulse Rate 52 L 51 L Respiratory Rate 16 18 Blood Pressure 176/44 H 147/58 H Blood Pressure Mean 88 87 Pulse Ox 92 92 Oxygen Delivery Method Room Air [facility] Narrative Medical decision making narrative: HISTORY OF PRESENT ILLNESS: Chief complaint: Confusion 79-year-old F history of hypertension, former smoker, hypothyroidism, breast cancer, rheumatoid arthritis presents with concern for worsening confusion. Per the patient's son the patient had increased confusion. He notes previous memory issues however they are worsening. Son states she complained of shortness of breath today. No report of falls or chest pain. REVIEW OF SYSTEMS: Pertinent positives: Confusion, shortness of breath Pertinent negatives: As per HPI PHYSICAL EXAM: Nursing triage notes reviewed, Vital signs reviewed Constitutional: please see [facility] HENT: MMM, no nasal cell carcinoma lesion to the forehead Eyes: Pupils equal round and reactive to light, Extraocular muscles intact Neck: No stridor, no JVD, full neck ROM Lungs: Clear to auscultation, No wheezing or rales. No increased work of breathing, no conversational dyspnea, no accessory muscle use, no nasal flaring. No respiratory distress noted Heart: Regular rate and rhythm, No murmurs, No rubs and No gallops, 2+ distal pulses (radial, femoral, posterior tibial) in all extremities Abdomen: Soft, there is no tenderness, rigidity, rebound or guarding, no obvious peritoneal signs, no palpable pulsatile abdominal masses, no auscultated abdominal bruit : No CVAT Extremities: No edema Neuro: Alert but not oriented to person or place or time cranial nerves II through XII intact, 5/5 strength in all present extremities. Intact sensation to light touch in all present extremities, 2+ reflexes bilateral patella tendons. Skin: No rash or lesions noted MEDICAL DECISION MAKING: Chief Complaint: please see HPI External records reviewed: Reviewed CT scan of the brain from 2023 which showed no acute intracranial abnormality. Baseline mental status is alert and oriented to person and place but not time per prior ED note. Factors affecting care: As per HPI Social determinants of health: n elderly History obtained from others: Patient's Consults: internal medicine (Dr. Fortune) MDM Narrative: The patient was initially hemodynamically stable, afebrile and nontoxic- appearing. Exam without focal deficits. Baseline mental status I considered the following differential diagnosis: ICH, infectious cephalopathy, anemia, electro disturbance, acute kidney injury I obtained broad lab and imaging to further determine if the patient was suffering from a life-threatening etiology. I treated the patient while in the ED with ceftriaxone azithromycin to treat pneumonia and possible UTI ALL IMAGES (IF OBTAINED) HAVE BEEN PERSONALLY REVIEWED AND INTERPRETED BY MYSELF. CBC with no leukocytosis, no anemia or thrombocytopenia BMP without significant electrolyte abnormalities, mild back acidosis with no endorgan hypoperfusion, no significant hepatobiliary abnormalities High-sensitivity troponin is negative, no evidence of myocardial ischemia Urinalysis consistent with UTI Chest x-ray was read and reviewed personally so showed multifocal lesions that could be consistent with pneumonia. Radiologist noted could be consistent with metastatic disease versus pneumonia Given patient's confusion, multiple focus of infection including pneumonia and UTI patient be admitted for further evaluation and treatment. The patient and/or family, caregivers express understanding. The patient and/or family, caregivers agrees with the plan. Shared decision making: I will have a discussion with the patient and or visitors regarding risk/benefits of further testing or admission. They will be made aware of of the risk/benefits inherent in this decision they will be given the opportunity to voice understanding. Total critical care time today provided was at least 0 minutes. This excludes separately billable procedures. Critical care time (if documented) is secondary to the patient having high probability of clinically significant/life threatening deterioration in the patient's condition which required my urgent intervention. Impression: 1. UTI 2. Altered mental status 3. Metastatic cancer Dispo: Admit to floor This note was generated with [employer] dictation software. It may contain incorrect words, spelling, and punctuation that were not noted in review of the chart prior to signing. Lab Data Labs: Laboratory Results - last 24 hr 10/18/24 10/18/24 10/18/24 17:48 18:39 19:48 WBC 8.6 RBC 4.43 Hgb 12.3 Hct 38.0 MCV 85.8 MCH 27.8 MCHC 32.4 RDW Std Deviation 47.4 H RDW Coeff of Andrew 15.6 H Plt Count 317 MPV 9.4 Sodium 138 Potassium 3.8 Chloride 104 Carbon Dioxide 20.3 L Anion Gap 14 BUN 36 H Creatinine 1.32 H Estim Creat Clear Calc 20.08 L Est GFR (MDRD) Non-Af 41 L BUN/Creatinine Ratio 27.2 H Glucose 104 H Calcium 9.9 Total Bilirubin 0.28 AST 67 H ALT 24 Alkaline Phosphatase 100 Troponin T High Sens 29 H Troponin T Hi Sens 2 Hr 27 H Total Protein 6.4 Albumin 3.2 L Globulin 3.2 Albumin/Globulin Ratio 1.0 Urine Color Yellow Urine Clarity Sl. Cloudy Urine pH 5.0 Ur Specific Morris 1.025 Urine Protein 30 H Urine Glucose (UA) Normal Urine Ketones Negative Urine Occult Blood 50 H Urine Nitrite Positive H Urine Bilirubin Negative Urine Urobilinogen Normal Ur Leukocyte Esterase 500 H Urine RBC 0-5 SEEN Urine WBC 5-10 SEEN Ur Squamous Epith Cells 0-5 SEEN Urine Bacteria 3+ Urine Mucus 0 SEEN Radiography Diagnostic Testing: Clinical Impression(s) from Imaging Studies Brain CT 10/18/24 17:40 IMPRESSION: Focal soft tissue swelling and gas along the left frontal scalp to be correlated for soft tissue injury. No acute intracranial hemorrhage or acute calvarial fracture. - Global parenchymal volume loss and associated ex vacuo ventricular dilation. - Intracranial atherosclerosis and microvascular ischemic changes again noted. - Other findings discussed above. Reading Location: [facility] Chest X-Ray 10/18/24 17:55 IMPRESSION: Extensive pulmonary opacities, worrisome for malignancy/metastatic disease. Superimposed pneumonia can not be ruled out. Findings and recommendations discussed above. Reading Location: [facility] Discharge Plan Disposition Disposition: Acute Care Hospital [facility] Discharge Date/Time: 10/18/24 20:45
[2024-10-18 17:40] VITALS: BP 132/80; PULSE 58; RESP 20; TEMP 37; O2SAT 99
--- NOTE | 2024-10-18 17:40 | CT_ITS ---
PROCEDURE: BRAIN/HEAD WITHOUT CONTRAST 10/18/2024 REASON FOR EXAM: CONFUSION TECHNIQUE: Procedure Code: CTBR Modality: CT Procedure: BRAIN/HEAD WITHOUT CONTRAST Coronal and Sagittal reconstruction series were provided. One or more dose reduction techniques were used (e.g., Automated exposure control, adjustment of the mA and/or kV according to patient size, use of iterative reconstruction technique. RADIATION DOSE SUMMARY: CTDlvol: 44.99 mGy DLP: 762.36 mGycm COMPARISON: Head CT December 31, 2023 FINDINGS: Note: Images through the base of the brain and posterior fossa including the brainstem are slightly degraded by beam hardening artifact from the adjacent calvarium. Brain: There is no evidence of acute intracranial hemorrhage. Note is made that some parenchymal contusions may not be visible immediately. Consider follow-up imaging as clinically indicated. There is moderate to severe global parenchymal volume loss. No focal extra-axial fluid collection is seen. Appearance of the basal cisterns is unremarkable. There is no posterior fossa Chiari malformation. There is no midline shift or herniation. No evidence of pneumocephalus. Incidental intracranial calcifications noted. There is intracranial calcific atherosclerosis. Mild periventricular and deep white matter attenuation changes again noted consistent with chronic microvascular ischemic change and gliosis. No parenchymal changes are seen suggestive of cytotoxic edema to indicate an acute territorial vascular infarct. Note is made that CT changes may lag clinical findings an acute stroke. If indicated, consider follow-up imaging or diffusion-weighted MRI. Ventricles: The ventricles are distended, however similar to the prior exam and commensurate with degree of parenchymal volume loss consistent with ex vacuo dilation. The ventricles do not appear obstructed. Pituitary: The pituitary fossa does not appear enlarged. The pituitary stalk does not appear deviated. Soft tissues: There is focal soft tissue swelling and soft tissue gas along the anterior left frontal scalp consistent with hemorrhagic subgaleal soft tissue contusion or penetrating injury. Osseous: No acute calvarial fracture. No suspicious bone lesion. Visualized paranasal sinuses: Mild mucosal thickening within a few ethmoid air cells. No fluid in the paranasal sinuses. Mastoids: No fluid or opacification of mastoid air cells. Middle ear cavities: The visualized middle ear cavities are not opacified. There is soft tissue debris within the external auditory canals to be correlated directly with clinical exam. CT/Brain/Head without Contrast IMPRESSION: Focal soft tissue swelling and gas along the left frontal scalp to be correlate d for soft tissue injury. No acute intracranial hemorrhage or acute calvarial fracture. - Global parenchymal volume loss and associated ex vacuo ventricular dilation. - Intracranial atherosclerosis and microvascular ischemic changes again noted. - Other findings discussed above. Reading Location: [id number]
--- NOTE | 2024-10-18 17:41 | EKG12_ITS ---
Test Reason : CONFUSION Blood Pressure : */* mmHG Vent. Rate : 53 BPM Atrial Rate : 53 BPM P-R Int : 142 ms QRS Dur : 138 ms QT Int : 464 ms P-R-T Axes : 94 15 93 degrees QTcB Int : 435 ms Sinus bradycardia Left bundle branch block Abnormal ECG Confirmed by Ortega Armstrong ([id number]), news video editor SHANNON MONSALVE ([id number]) on 10/19/2024 9:53:00 AM Referred By: Confirmed By: Ortega Armstrong
[2024-10-18 17:53] LABS: Hematocrit 38.0 % (37-47); Hemoglobin 12.3 g/dL (12.0-15.0); Mean Corp Hgb Conc 32.4 g/dL (32-36); Mean Corpuscular Volume 85.8 fL (81-99); Mean Platelet Vol. 9.4 fl (6.2-12.0); Platelet Count 317 K/mm3 (150-450); RBC Distribution Width CV 15.6 % (11.6-14.6); RBC Distribution Width SD 47.4 fl (35.1-43.9); Red Blood Count 4.43 M/mm3 (4.2-5.4); White Blood Count 8.6 K/mm3 (4.4-11.0)
--- NOTE | 2024-10-18 17:55 | RAD_ITS ---
PROCEDURE: CHEST 1 VIEW (PORTABLE) 10/18/2024 REASON FOR EXAM: CONFUSION TECHNIQUE: Frontal view of the chest. COMPARISON: Chest x-ray December 31, 2023 FINDINGS: Lungs: There is dense opacity at the right lung base which may be due to a combination of elevation of the right hemidiaphragm, pleural fluid, atelectasis, infiltrate/pneumonia and/or parenchymal/pleural mass. Clinical correlation is advised. Right lung volume is low. Left lung volume is pronounced. Soft tissue masses are seen overlying both demetrius thoraces, the largest single lesion measuring over 5 cm in diameter. These may represent parenchymal masses or pleural-based masses. Malignancy/metastatic disease is favored. Correlation with clinical history would be helpful. For complete evaluation consider chest CT with contrast if not already done. Pleura: Bilateral pleural effusions can not be ruled out. Biapical pleural thickening. No pneumothorax is seen. Mediastinum: There is no mediastinal widening or mediastinal shift. Heart: The cardiac silhouette is not enlarged. Vascular: Calcified aortic atherosclerosis. Giselle: The pulmonary giselle are not enlarged or retracted. Osseous: No acute fracture is seen. Degenerative changes of the spine. RAD/Chest 1 View (Portable) IMPRESSION: Extensive pulmonary opacities, worrisome for malignancy/metastatic disease. Superimposed pneumonia can not be ruled out. Findings and recommendations discussed above. Reading Location: [id number]
--- OUTSIDE RECORDS SUMMARY | 2024-10-18 18:04 | XMS RPT_ITS | CCD ---
Author Organization [facility] Care Team Providers Care Knocker Out Name Role Phone Unavailable Primary Care Provider Unavailabl e Dr. Russell Shannon DO Primary Care Provider Dr. Russell Shannon DO Attending Provider Ken Law Referring Unavailable Ken Law Attending Unavailable Mirtha, Russell Primary Care Unavailable Mirtha, Russell Attending Unavailable Mirtha, Russell Primary Care Unavailable Mirtha, Russell Primary Care Unavailable Jyotsna Baldwin Referring Unavailable Jyotsna Baldwin Attending Unavailable Mirtha, Russell Primary Care Unavailable Robotham, Priyanka Attending Unavailable Robotham, Priyanka Referring Unavailable Mirtha, Russell Primary Care Unavailable Vincent Brumfield Attending Unavailable Ken Law Attending Unavailable Ken Law Referring Unavailable Mirtha, Russell Primary Care Unavailable AniKen lara Attending Unavailable Mirtha, Russell Primary Care Unavailable Mirtha, Russell Referring Unavailable Ani, Ken Attending Unavailable Mirtha, Russell Primary Care Unavailable Mirtha, Russell Primary Care Unavailable Robotham, Priyanka Attending Unavailable Mirtha, Russell Referring Unavailable Ken Law Attending Unavailable Mirtha, Russell Primary Care Unavailable Robotham, Priyanka Referring Unavailable Mirtha, Russell Referring Unavailable Mirtha, Russell Primary Care Unavailable Sachin Bolaños Attending Unavailable Ken Law Attending Unavailable Ani, Ken Referring Unavailable Mirtha, Russell Primary Care Unavailable Ken Law Attending Unavailable Mirtha, Russell Primary Care Unavailable Ani, Ken Attending Unavailable Ani, Ken Referring Unavailable Mirtha, Russell Primary Care Unavailable Ani, Ken Attending Unavailable Ani, Ken Referring Unavailable Mirtha, Russell Primary Care Unavailable Allergies Allergy Classification Reported Allergen(s) Allergy Type Date of Onset Reaction(s) Facility (4 sources) Codeine Drug Allergy 6 Other: See Comments [facility] (3 sources) Simvastatin Drug Allergy 2 Other [facility] (1 source) HMG-CoA reductase inhibitor Drug Intolerance 4 Other: See Comments [facility] (1 source) Codeine Drug Allergy 5 [facility] (1 source) Simvastatin Drug Allergy 5 [facility] Medications Current Medications Medication Drug Class(es) Dates Sig (Normalized) Sig (Original) colesevelam hydrochloride 3750 mg powder for oral suspension (1 source) Bile Acid Sequestrant Start: 10-05-2013 WELCHOL 3.75 gram pwpk donepezil hydrochloride 10 mg oral tablet (1 source) Start: 09-17-2023 take 1 tablet by mouth once daily Donepezil 10 mg tablet Active 10 mg PO DAILY September 17, 2023 12:00am folic acid 1 mg oral tablet (1 source) Start: 06-24-2007 FOLIC ACID 1 MG TAB Take one(1) tablet daily. 0 06/24/2007 Active folic acid 0.4 mg / vitamin b12 0.5 mg oral tablet (3 sources) Vitamin B12 Start: 03-10-2021 Vitamin C62-Rnibp Acid 500-400 mcg Tablet Active 1 {tbl} PO DAILY March 10, 2021 1:00am Start: 03-10-2021 take 1 tablet by cielo once daily Vitamin G00-Vxfma Acid Active 1 TABLET PO DAILY March 10, 2021 1:00am levothyroxine sodium 0.05 mg oral capsule (13 sources) l-Thyroxine Start: 03-10-2021 Levothyroxine 50 mcg Capsule Active 100 ug PO IGNACIO March 10, 2021 1:00am Start: 03-10-2021 Levothyroxine Active 100 MCG PO IGNACIO March 10, 2021 1:00am Start: 03-07-2021 take 2 tablets by mo uth once daily Levothyroxine 100 mcg tablet Active 50 ug PO DAILY March 07, 2021 12:15pm Take 2 Doses on Saturday Start: 03-07-2021 Levothyroxine Active 50 MCG PO DAILY March 07, 2021 12:15pm Take 2 Doses on Saturday Start: 03-11-2019 End: 03-07-2021 Levothyroxine 100 MCG tablet Discontinued 50 ug PO DAILY March 11, 2019 8:39pm March 07, 2021 12:18pm Start: 03-11-2019 End: 03-07-2021 take 50 ug by mouth once daily Levothyroxine Discontin ued 50 MCG PO DAILY March 11, 2019 8:39pm March 07, 2021 12:18pm Start: 11-27-2013 End: 03-11-2019 take 1 tablet by mouth once daily Levothyroxine (Levoxyl) 100 MCG tablet Discontinued 100 ug PO DAILY 09 02November 27, 2013 12:00am March 11, 2019 8:39pm take 1 tablet by cielo th once daily before breakfast levothyroxine (SYNTHROID) 50 mcg tablet Take 50 mcg by mouth daily before breakfast. 0 Active losartan potassium 25 mg oral tablet (10 sources) Angiotensin 2 Receptor Ronald Start: 03-07-2021 take 4 tablets by mouth at bedtime Losartan 25 mg tablet Active 100 mg PO AT BEDTIME March 07, 2021 12:16pm Start: 03-07-2021 take 100 mg by mouth at bedtim e Losartan Active 100 MG PO AT BEDTIME March 07, 2021 12:16pm Start: 03-11-2019 End: 03-07-2021 take 2 tablets by mouth once daily Losartan 25 MG tablet Discontinued 50 mg PO DAILY March 11, 2019 8:39pm March 07, 2021 12:18pm Start: 03-11-2019 End: 03-07-2021 take 50 mg by mouth once daily Losartan Discontinued 5 0 MG PO DAILY March 11, 2019 8:39pm March 07, 2021 12:18pm Start: 06-08-2013 End: 03-11-2019 take 1 tablet by mouth once daily Losartan 25 MG tablet Discontinued 25 mg PO DAILY 30 June 08, 2013 12:00am March 11, 2019 8:39pm memantine hydrochloride 5 mg oral tablet (1 source) C-qrbrmk-R-aspartate Receptor Antagonist Start: 09-17-2023 take 1 tablet by mouth once daily in the morning Memantine 5 mg tablet Active 5 mg PO EVERY MORNING September 17, 2023 12:00am 24 hr propranolol hydrochloride 60 mg extended release oral capsule (7 sources) beta-Adrenergic Ronald Start: 10-02-2013 take 1 capsule by mouth every twenty-four hours at bedtime Propranolol 60 MG capsule,extende d release 24 hr Active 60 mg PO AT BEDTIME March 10, 2021 3:33pm Start: 06-08-2013 End: 03-10-2021 take 1 capsule by mouth once daily Propranolol 60 MG capsule Discontinued 60 mg PO DAILY 30 0 June 08, 2013 12:00am March 10, 2021 3:33pm Propylene glycol (1 source) PROPYLENE GLYCOL (SYSTANE BALANCE OPHTHALMIC) Use in eyes. 0 Active Completed/Discontinued Medications Medication Drug Class(es) Dates Sig (Normalized) Sig (Original) acetaminophen 325 mg / oxyCODONE hydrochloride 2.5 mg oral tablet (3 sources) Opioid Agonist Start: 03-13-2021 End: 04-06-2021 take 7-10 tablets by mouth every six hours as needed for pain Oxycodone-Acetamino phen (Percocet) 2.5-325 mg tablet Discontinued 1 {tbl} PO EVERY 6 HOURS as needed for pain (scale score 7-10) 28 7 0 March 13, 2021 April 06, 2021 2:56pm Other acute postprocedural pain Other acute postprocedural pain 28 tabs (twenty-eight) aspirin 81 mg delayed release oral tablet (4 sources) Platelet Aggregation Inhibitor, Nonsteroidal Anti-inflammatory Drug Start: 06-08-2013 End: 03-07-2021 take 1 tablet by mouth once daily Aspirin 81 MG tablet Discontinued 81 mg PO DAILY@0800 90 0 June 08, 2013 12:00am March 07, 2021 12:15pm clindamycin 300 mg oral capsule (3 sources) Lincosamide Antibacterial Start: 03-13-2021 End: 03-20-2021 take 1 capsule by mouth three times daily Clindamycin Hcl (Cleocin Hcl) 300 mg capsule Discontinued 300 mg PO THREE TIMES A DAY 21 0 March 13, 2021 1:00am March 20, 2021 3:00pm ibuprofen 400 mg oral tablet (3 sources) Nonsteroidal Anti-inflammatory Drug Start: 06-05-2013 End: 03-07-2021 take 1 tablet by mouth twice daily as needed for pain Ibuprofen 400 MG tablet Discontinued 400 mg PO TWICE DAILY NEEDED as needed for Pain June 05, 2013 12:00am March 07, 2021 12:15pm L.Acidoph,Saliva-B. Bif-S.Therm (Acidophilus Probiotic Blend) 175 mg capsule (3 sources) Start: 03-13-2021 End: 04-06-2021 take 1 capsule by mouth once daily L.Acidoph,Saliva-B. Bif-S.Therm (Acidophilus Probiotic Blend) 175 mg capsule Discontinued 1 NMA PO DAILY March 13, 2021 1:00am April 06, 2021 2:55pm Start: 03-13-2021 End: 04-06-2021 take 1 capsule by mouth once daily L.Acidoph,Saliva-B.Bif-S.Therm (Acidophi surinder Probiotic Blend) 175 mg capsule Discontinued 1 CAP PO DAILY March 13, 2021 1:00am April 06, 2021 2:55pm methotrexate 2.5 mg oral tablet (4 sources) Folate Analog Metabolic Inhibitor Start: 06-05-2013 End: 03-07-2021 Methotrexate Sodium 2.5 MG tablet Discontinued 15 mg PO Q7D June 05, 2013 12:00am March 07, 2021 12:17pm Start: 06-05-2013 End: 03-07-2021 take 15 mg by mouth every week Methotrexate Sodium Dis continued 15 MG PO Q7D June 05, 2013 12:00am March 07, 2021 12:17pm Start: 06-24-2007 METHOTREXATE S ODIUM 2.5 MG TAB Take as directed once a week 0 06/24/2007 Active Problems Active Problems Problem Classification Problem Date Documented Date Episodic/Chronic Cancer of breast (3 sources) Malignant tumor of breast ; Translations: [Malignant neoplasm of unspecified site of right female breast] Onset: 10-17-2023 09-26-2023 Chronic Conduction disorders (3 sources) Left bundle branch block; Translations: [Left bundle-branch block, unspecified] 03-11-2019 Chronic Disorders of lipid metabolism (3 sources) Hyperlipidemia; Translations: [Hyperlipidemia, unspecified] 03-11-2019 Chronic Essential hypertension (1 source) Essential (primary) hypertension; Translations: [Essential (primary) hypertension] Onset: 08-12-2024 Chronic Open wounds of head; neck; and trunk (3 sources) Laceration of forehead; Translations: [Laceration without foreign body of other part of head, initial encounter] 03-12-2019 Episodic Other lower respiratory disease (3 sources) Dyspnea; Translations: [Shortness of breath] 03-11-2019 Episodic Other nervous system disorders (3 sources) Acute postoperative pain; Translations: [Other acute postprocedural pain] 03-13-2021 Episodic Other non-epithelial cancer of skin (3 sources) Basal cell carcinoma of scalp; Translations: [Basal cell carcinoma of skin of scalp and neck] 03-15-2021 Episodic Comment on above: 2 cm ulcerated basal cell carcinoma left frontal scalp Residual codes; unclassified (1 source) Chronic confusion; Translations: [Disorientation, unspecified] 01-08-2024 Episodic Rheumatoid arthritis and related disease (3 sources) Rheumatoid arthritis; Translations: [Rheumatoid arthritis, unspecified] 03-15-2021 Chronic Screening and history of mental health and substance abuse codes (3 sources) Ex-smoker; Translations: [Personal history of nicotine dependence] 03-09-2021 Episodic Superficial injury; contusion (3 sources) Abrasion of hand; Translations: [Abrasion of unspecified hand, initial encounter] 03-12-2019 Episodic Thyroid disorders (3 sources) Non-toxic uninodular goiter; Translations: [Nontoxic single thyroid nodule] Onset: 09-25-2005 08-22-2023 Chronic Past or Other Problems Problem Classification Problem Date Documented Da te Episodic/Chronic Lymphadenitis (1 source) Lymphadenopathy; Translations: [Enlarged lymph nodes, unspecified] Onset: 09-25-2005 08-22-2023 Episodic Nonmalignant breast conditions (2 sources) Breast lump; Translations: [Unspecified lump in the right breast, unspecified quadrant] Onset: 10-17-2023 10-01-2023 Episodic Comment on above: With ulcerated mass T4 N1 Mx. Pt has memory loss. ER negative, AL negative, Her2 negative.Discussed locally advanced R breast cancer, staging with CT and bone scan with her son Alcides. Prognosis poor. He wants supportive care, does not want to do staging work up. Radiation therapy to the R breast is planned for palliation. Discussed Palliative care, Son has reservations about it now. Other screening for suspected conditions (not mental disorders or infectious disease) (1 source) Other abnormal and inconclusive findings on diagnostic imaging of breast; Translations: [Other abnormal and inconclusive findings on diagnostic imaging of breast] Onset: 10-18-2023 Episodic Residual codes; unclassified (1 source) Altered mental status, unspecified; Translations: [Altered mental status, unspecified] Onset: 01-30-2024 Episodic Residual codes; unclassified (1 source) Estrogen receptor negative status [ER-]; Translations: [Estrogen receptor negative status [ER-]] Onset: 10-29-2023 Episodic Results Test Name Value Interpretation Reference Range Facility Absolute lymphocyte countOrd ered By: Russell Shannon on 08-07-2024 Lymphocytes Auto (Unsp spec) [#/Vol] 0.98 10*3/uL 0.83-4.51 [facility] Absolute neutrophil countOrd ered By: Russell Shannon on 08-07-2024 Neutrophils (Bld) [#/Vol] 5.8 10*3/uL 2.0-7.7 [facility] Anion gap in Serum or Plasma Ordered By: Russell Shannon on 08-07-2024 Anion gap [Moles/Vol] 12 mmol/L 5-15 [facility] [place] Automated lymphocyte count a s percentage of total leukocytesOrdered By: Russell Shannon on 08-07-2024 Lymphocytes/100 WBC Auto (Unsp spec) 12.5 % Low 19-41 [facility] BUN/creatinine ratioOrdered By: Russell Shannon on 08-07-2024 Urea nitrogen/Creatinine [Mass ratio] 22.5 mg/mg High 10-20 [facility] Basophil percentageOrdered B y: Russell Shannon on 08-07-2024 Basophils/100 WBC (Bld) 1.0 % 0-1 [facility] Bilirubin, totalOrdered By: Russell Shannon on 08-07-2024 Bilirubin [Mass/Vol] 0.50 mg/dL 0.00-1.30 [facility] CBC W/Diff, Automatedon 07-13 Absolute Lymph 0.98 X10 3/uL Normal 0.83-4.51 [facility] Comment on above: Performed By: #### L 500.7680, L501.9520, L506.0400, L100.0100 #### [facility] [address] [place], [address] Absolute Neut 5.8 X10 3/uL Normal 2.0-7.7 [facility] Comment on above: Performed By: #### L 500.4050, [id number], L506.0400, L100.0100 #### [facility] [address] [place], [address] Basophils/100 WBC (Bld) 1.0 % Normal 0-1 [facility] Comment on above: Performed By: #### L 500.4050, [id number], L506.0400, L100.0100 #### [facility] [address] [place], [address] Eosinophils/100 WBC (Bld) 4.3 % Normal 0-5 [facility] Comment on above: Performed By: #### L 500.4050, [id number], L506.0400, L100.0100 #### [facility] [address] [place], [address] Erythrocyte distribution width (RBC) [Ratio] 13.4 % Normal 11.6-14.6 [facility] Comment on above: Performed By: #### L 500.4050, [id number], L506.0400, L100.0100 #### [facility] [address] [place], [address] Hematocrit (Bld) [Volume fraction] 38.6 % Normal 37-47 [facility] Comment on above: Performed By: #### L 500.4050, [id number], L506.0400, L100.0100 #### [facility] [address] [place], [address] Hemoglobin (Bld) [Mass/Vol] 12.1 g/dL Normal 12.0-15.0 [facility] Comment on above: Performed By: #### L 500.4050, [id number], L506.0400, L100.0100 #### [facility] [address] [place], [address] IG% 0.400 Normal 0.0-0.9 [facility] Comment on above: Result Comment: IG% - Immature Granulocytes (promyelocytes, myelocytes and metamyelocytes) > 1% indicates that a LEFT SHIFT is Present. Performed By: #### L 500.4050, [id number], L506.0400, L100.0100 #### [facility] [address] [place], [address] Lymphocytes/100 WBC (Bld) 12.5 % Low 19-41 [facility] Comment on above: Performed By: #### L 500.4050, [id number], L506.0400, L100.0100 #### [facility] [address] [place], [address] MCH (RBC) [Entitic mass] 27.1 pg Normal 27.0-32.0 [facility] Comment on above: Performed By: #### L 500.4050, [id number], L506.0400, L100.0100 #### [facility] [address] [place], [address] MCHC (RBC) [Mass/Vol] 31.3 g/dL Low 32-36 [facility] Comment on above: Performed By: #### L 500.4050, [id number], L506.0400, L100.0100 #### [facility] [address] [place], [address] MCV (RBC) [Entitic vol] 86.5 fL Normal 81-99 [facility] Comment on above: Performed By: #### L 500.4050, [id number], L506.0400, L100.0100 #### [facility] [address] [place], [address] Monocytes/100 WBC (Bld) 8.0 % Normal 0-10 [facility] Comment on above: Performed By: #### L 500.4050, [id number], L506.0400, L100.0100 #### [facility] [address] [place], [address] Neutrophils/100 WBC (Bld) 73.8 % High 47-70 [facility] Comment on above: Performed By: #### L 500.4050, [id number], L506.0400, L100.0100 #### [facility] [address] [place], [address] Nucleated RBC (Bld) [#/Vol] 0 10*3/uL Normal 0-5 [facility] Comment on above: Performed By: #### L 500.4050, [id number], L506.0400, L100.0100 #### [facility] [address] [place], [address] Platelet mean volume (Bld) [Entitic vol] 9.6 fL Normal 6.2-12.0 [facility] Comment on above: Performed By: #### L 500.4050, [id number], L506.0400, L100.0100 #### [facility] [address] [place], [address] Platelets (Bld) [#/Vol] 323 10*3/uL Normal 150-450 [facility] Comment on above: Performed By: #### L 500.4050, [id number], L506.0400, L100.0100 #### [facility] [address] [place], [address] RBC (Bld) [#/Vol] 4.46 10*6/uL Normal 4.2-5.4 [facility] Comment on above: Performed By: #### L 500.4050, [id number], L506.0400, L100.0100 #### [facility] [address] [place], [address] RDW SD 42.4 fl Normal 35.1-43.9 [facility] Comment on above: Performed By: #### L 500.4050, [id number], L506.0400, L100.0100 #### [facility] [address] [place], [address] WBC (Bld) [#/Vol] 7.9 10*3/uL Normal 4.4-11.0 [facility] Comment on above: Performed By: #### L 500.4050, [id number], L506.0400, L100.0100 #### [facility] [address] [place], [address] Carbon dioxide, total [Moles /volume] in Central venous bloodOrdered By: Russell Shannon on 08-07-2024 CO2 [Moles/Vol] 25.3 mmol/L 21.0-32.0 [facility] Chloride assayOrdered By: Akbar Shannon on 08-07-2024 Chloride [Moles/Vol] 104 mmol/L 98-108 [facility] Comprehensive Metabolic Prof ilon 08-07-2024 Albumin [Mass/Vol] 4.0 g/dL Normal 3.4-4.8 [facility] Comment on above: Performed By: #### L 500.4050, [id number], L506.0400, L100.0100 #### [facility] [address] [place], [address] Albumin/Globulin [Mass ratio] 1.3 {ratio} Normal 0.9-2.4 [facility] Comment on above: Performed By: #### L 500.4050, [id number], L506.0400, L100.0100 #### [facility] [address] [place], [address] ALK PHOS 84 U/L Normal 35-104 [facility] Comment on above: Performed By: #### L 500.4050, [id number], L506.0400, L100.0100 #### [facility] [address] [place], [address] ALT [Catalytic activity/Vol] 26 U/L Normal <=34 [facility] Comment on above: Performed By: #### L 500.4050, [id number], L506.0400, L100.0100 #### [facility] [address] [place], [address] AST [Catalytic activity/Vol] 43 U/L High <=31 [facility] Comment on above: Performed By: #### L 500.4050, [id number], L506.0400, L100.0100 #### [facility] [address] [place], [address] Bilirubin [Mass/Vol] 0.50 mg/dL Normal 0.00-1.30 [facility] Comment on above: Performed By: #### L 500.4050, [id number], L506.0400, L100.0100 #### [facility] [address] [place], [address] BUN/CRE 22.5 RATIO High 10-20 [facility] Comment on above: Performed By: #### L 500.4050, [id number], L506.0400, L100.0100 #### [facility] [address] [place], [address] Calcium [Mass/Vol] 10.4 mg/dL Normal 7.6-11.0 [facility] Comment on above: Performed By: #### L 500.4050, [id number], L506.0400, L100.0100 #### [facility] [address] [place], [address] Chloride [Moles/Vol] 104 mmol/L Normal 98-108 [facility] Comment on above: Performed By: #### L 500.4050, [id number], L506.0400, L100.0100 #### [facility] [address] [place], [address] CO2 [Moles/Vol] 25.3 mmol/L Normal 21.0-32.0 [facility] Comment on above: Performed By: #### L 500.4050, [id number], L506.0400, L100.0100 #### [facility] [address] [place], [address] Creatinine [Mass/Vol] 0.98 mg/dL Normal 0.70-1.20 [facility] Comment on above: Performed By: #### L 500.4050, [id number], L506.0400, L100.0100 #### [facility] [address] [place], [address] GAP 12 Normal 5-15 [facility] Comment on above: Performed By: #### L 500.4050, [id number], L506.0400, L100.0100 #### [facility] [address] [place], [address] GFR/1.73 sq M.predicted among non-blacks MDRD (S/P/Bld) [Vol rate/Area] 58 mL/min/{1.73_m2} Low >60 [facility] Comment on above: Result Comment: mL/m in/1.73m2 CKD-EPI Creatinine Equation (2020) Performed By: #### L 500.4050, [id number], L506.0400, L100.0100 #### [facility] [address] [place], [address] Globulin (S) [Mass/Vol] 3.1 g/dL Normal 2.2-4.2 [facility] Comment on above: Performed By: #### L 500.4050, [id number], L506.0400, L100.0100 #### [facility] [address] [place], [address] Glucose [Mass/Vol] 89 mg/dL Normal 70-99 [facility] Comment on above: Performed By: #### L 500.4050, [id number], L506.0400, L100.0100 #### [facility] [address] [place], [address] Potassium [Moles/Vol] 3.9 mmol/L Normal 3.3-5.1 [facility] Comment on above: Performed By: #### L 500.4050, [id number], L506.0400, L100.0100 #### [facility] [address] [place], [address] Sodium [Moles/Vol] 142 mmol/L Normal 133-145 [facility] Comment on above: Performed By: #### L 500.4050, [id number], L506.0400, L100.0100 #### [facility] [address] [place], [address] T PROT 7.1 g/dL Normal 5.9-8.4 [facility] Comment on above: Performed By: #### L 500.4050, [id number], L506.0400, L100.0100 #### [facility] [address] [place], [address] Urea nitrogen [Mass/Vol] 22 mg/dL High 4-19 [facility] Comment on above: Performed By: #### L 500.4050, [id number], L506.0400, L100.0100 #### [facility] [address] [place], [address] Eosinophil percentageOrdered By: Russell Shannon on 08-07-2024 Eosinophils/100 WBC (Bld) 4.3 % 0-5 [facility] Erythrocyte distribution wid th ratioOrdered By: Russell Shannon on 08-07-2024 Erythrocyte distribution width (RBC) [Ratio] 13.4 % 11.6-14.6 [facility] Erythrocyte distribution wid th standard deviationOrdered By: Russell Shannon on 08-07-2024 Erythrocyte distribution width (RBC) [Ratio] 42.4 fl 35.1-43.9 [facility] Glomerular filtration rate ( GFR) estimation/1.73 sq m using serum, plasma, or whole bOrdered By: Russell Shannon on 08-07-2024 GFR/1.73 sq M.predicted among non-blacks MDRD (S/P/Bld) [Vol rate/Area] 58 mL/min/{1.73_m2} Low >60 [facility] Comment on above: mL/min/1.73m2 CKD-EP I Creatinine Equation (2020) Hematocrit Auto (Bld) [Volum e fraction]Ordered By: Russell Shannon on 08-07-2024 Hematocrit (Bld) [Volume fraction] 38.6 % 37-47 [facility] Hemoglobin measurementOrdere d By: Russell Shannon on 08-07-2024 Hemoglobin (Bld) [Mass/Vol] 12.1 g/dL 12.0-15.0 [facility] Immature granulocytes/100 WB C Auto (Bld)Ordered By: Russell Shannon on 08-07-2024 Immature granulocytes/100 WBC (Bld) 0.400 % 0.0-0.9 [facility] Comment on above: IG% - Immature Granu locytes (promyelocytes, myelocytes and metamyelocytes) > 1% indicates that a LEFT SHIFT is Present. Laboratory - Chemistry and C hemistry - challengeOrdered By: Russell Shannon on 08-07-2024 AST [Catalytic activity/Vol] 43 U/L High <32 [facility] MCV (mean corpuscular volume ) determinationOrdered By: Russell Shannon on 08-07-2024 MCV (RBC) [Entitic vol] 86.5 fL 81-99 [facility] Mean corpuscular hemoglobin (MCH) determinationOrdered By: Russell Shannon 08-07-2024 MCH (RBC) [Entitic mass] 27.1 pg 27.0-32.0 [facility] Mean corpuscular hemoglobin concentration (MCHC) determinationOrdered By: Russell Shannon on 08-07-2024 MCHC (RBC) [Mass/Vol] 31.3 g/dL Low 32-36 [facility] Mean platelet volume determi nationOrdered By: Russell Shannon on 08-07-2024 Platelet mean volume (Bld) [Entitic vol] 9.6 fL 6.2-12.0 [facility] Monocyte percentageOrdered B y: Russell Shannon on 08-07-2024 Monocytes/100 WBC (Bld) 8.0 % 0-10 [facility] Neutrophil percentageOrdered By: Russell Shannon on 08-07-2024 Neutrophils/100 WBC (Bld) 73.8 % High 47-70 [facility] Nucleated red blood cell per centageOrdered By: Russell Shannon on 08-07-2024 Nucleated RBC/100 WBC (Bld) [Ratio] 0 % 0-5 [facility] Platelet countOrdered By: Akbar Shannon on 08-07-2024 Platelets (Bld) [#/Vol] 323 10*3/uL 150-450 [facility] Potassium measurement (mass/ volume)Ordered By: Russell Shannon on 08-07-2024 Potassium (Unsp spec) [Mass/Vol] 3.9 mmol/L 3.3-5.1 [facility] RBC Auto (Bld) [#/Vol]Ordere d By: Russell Shannon on 08-07-2024 RBC (Bld) [#/Vol] 4.46 10*6/uL 4.2-5.4 [facility] Serum creatinine measurement (mass/volume)Ordered By: Russell Shannon on 08-07-2024 Creatinine [Mass/Vol] 0.98 mg/dL 0.70-1.20 [facility] Serum globulin measurementOr dered By: Russell Shannon on 08-07-2024 Globulin (S) [Mass/Vol] 3.1 g/dL 2.2-4.2 [facility] Serum glucose measurement (m ass/volume)Ordered By: Russell Shannon on 08-07-2024 Glucose [Mass/Vol] 89 mg/dL 70-99 [facility] Serum or plasma alanine jordan otransferase (ALT) measurementOrdered By: Russell Shannon on 08-07-2024 ALT [Catalytic activity/Vol] 26 U/L <35 [facility] Serum or plasma albumin shon urement (mass/volume)Ordered By: Russell Shannon on 08-07-2024 Albumin [Mass/Vol] 4.0 g/dL 3.4-4.8 [facility] Serum or plasma albumin/glob ulin mass ratioOrdered By: Russell Shannon on 08-07-2024 Albumin/Globulin [Mass ratio] 1.3 {ratio} 0.9-2.4 [facility] Serum or plasma alkaline anival sphatase measurementOrdered By: Russell Shannon on 08-07-2024 ALP [Catalytic activity/Vol] 84 U/L 35-104 [facility] Serum or plasma calcium shon urement (mass/volume)Ordered By: Russell Shannon on 08-07-2024 Calcium [Mass/Vol] 10.4 mg/dL 7.6-11.0 [facility] Serum or plasma urea nitroge n measurement (mass/volume)Ordered By: Russell Shannon on 08-07-2024 Urea nitrogen [Mass/Vol] 22 mg/dL High 4-19 [facility] Sodium levelOrdered By: Russell Shannon on 08-07-2024 Sodium [Moles/Vol] 142 mmol/L 133-145 [facility] T4 Free Directon 08-07-2024 T4 FREE DIRECT 1.60 ng/dL High 0.76-1.46 [facility] Comment on above: Performed By: #### L 500.4050, L501.9520, L506.0400, L100.0100 #### [facility] [address] [place], [address] T4 freeOrdered By: Russell lino on 08-07-2024 Free T4 [Mass/Vol] 1.60 ng/dL High 0.76-1.46 [facility] TSH DL <= 0.005 mIU/L QnOrde red By: Russell Shannon on 08-07-2024 TSH Qn 5.620 uIU/mL High 0.300-4.200 [facility] Thyroid Stim Hormone (TSH)on 08-07-2024 TSH 5.620 uIU/mL High 0.300-4.200 [facility] Comment on above: Performed By: #### L 500.4050, L501.9520, L506.0400, L100.0100 #### [facility] [address] [place], [address] Total proteinOrdered By: Ellie Shannon on 08-07-2024 Protein [Mass/Vol] 7.1 g/dL 5.9-8.4 [facility] White blood cell (WBC) count Ordered By: Russell Shannon on 08-07-2024 WBC (Bld) [#/Vol] 7.9 10*3/uL 4.4-11.0 [facility] Radiation Oncology Visiton 0 02-13-2024 Radiation Oncology Visit [facility] [address] [place] [address] OFFICE VISIT Date of Service: 02/13/24 1009 MR#: [id number] Acct: [id number] Name: SHAGUFTA GUTIERREZ Rep #: [id number] : 1945 From: Ken Ani DO Age/Sex: 78/F Location: [facility] [place] Status: Signed Intake Vital Signs 11/14/23 10:32 12/31/23 05:46 02/13/24 10:11 Height 5 ft 5 in 5 ft 5 in 5 ft 5 in Weight: 97 lb 3 oz BMI 16.2 BP 184/72 H Blood Pressure Location Rt brachial Position Sitting Respiration 16 Pulse 59 L Pulse Source Monitor Temp 98.0 F Temperature Source Temporal Artery Pulse Oximetry (%) 99 Oxygen Delivery Method room air Intake Visit Reasons: 3 MONTH F/U BREAST Is patient in pain?: No Allergies codeine Allergy (Verified 02/13/24 10:14) Other simvastatin Allergy (Verified 02/13/24 10:14) Other Medications ???Medication ???Instructions ???Recorded ???Confirmed ???Type levothyroxine 100 mcg tablet 50 mcg PO DAILY 03/07/21 02/13/24 History losartan 25 mg tablet 100 mg PO QHS 03/07/21 02/13/24 History levothyroxine 50 mcg capsule 100 mcg PO IGNACIO 03/10/21 02/13/24 History propranolol 60 mg capsule,24 60 mg PO QHS 03/10/21 02/13/24 History hr,extended release vitamin B12 500 mcg-folic acid 400 1 tab PO DAILY 03/10/21 02/13/24 History mcg tablet donepezil 10 mg tablet 10 mg PO DAILY 09/17/23 02/13/24 History memantine 5 mg tablet 5 mg PO QAM 09/17/23 02/13/24 History Have you fallen in the past year?: No PFSH PFSH Medical History Basal cell carcinoma of scalp Wears glasses Cancer Forgetfulness Anxiety Thyroid disease Arthritis Difficulty swallowing Former smoker Hypertension History of echocardiogram History of stress test Former smoker Neoplasm of skin of scalp Home Medications ???Medication ???Instructions ???Recorded ???Last Taken ???Type levothyroxine 100 mcg tablet 50 mcg PO DAILY 03/07/21 03/13/21 History losartan 25 mg tablet 100 mg PO QHS 03/07/21 Unknown History levothyroxine 50 mcg capsule 100 mcg PO IGNACIO 03/10/21 Unknown History propranolol 60 mg capsule,24 60 mg PO QHS 03/10/21 Unknown History hr,extended release vitamin B12 500 mcg-folic acid 400 1 tab PO DAILY 03/10/21 Unknown History mcg tablet donepezil 10 mg tablet 10 mg PO DAILY 09/17/23 Unknown History memantine 5 mg tablet 5 mg PO QAM 09/17/23 Unknown History Allergy/AdvReac Type Severity Reaction Status Date / Time codeine Allergy Other Verified 02/13/24 10:14 simvastatin Allergy Other Verified 02/13/24 10:14 Family History Mother Hypertension CVA (cerebral vascular accident) Other No pertinent family history Surgical History History of basal cell carcinoma excision History of local excision of skin lesion History of cystoscopy Hx of submandibular gland removal Hx of tubal ligation Hx of total thyroidectomy History of thyroid surgery Social History Smoking Status: Former smoker alcohol intake: current alcohol intake frequency: holidays/special occasions only details: 1 glass of wine substance use type: does not use additional social history: Does Not Take Aspirin Does Not Take Ibuprofen Diagnosis: Shagufta Gutierrez is an 78 year-old female diagnosed with at least 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 From 10/10/2023 ??? 10/17/2023 she completed palliative radiation to the right breast. History of Present Illness: 03/13/2021: Had left frontal scalp lesion excised and was consistent with BCC. 09/13/2023: Patient completed bilateral diagnostic mammogram.??? This demonstrated a large mass in the upper outer quadrant of the right breast with a large amount of microcalcifications and deformity in the right breast.??? Biopsy strongly recommended.??? BI-RADS Category 5. 09/17/2023: Patient was evaluated by surgery.??? On exam there was found to be a large firm fungating right breast mass with open wound below the nipple with some oozing, nontender.??? Biopsies were taken.??? Pathology consistent with grade 2 IDC (ER 0%, AL 0%, Her2 1-2+ IHC) From 10/10/2023 ??? 10/17/2023: received palliative radiation therapy to the right breast consisting of 2600 cGy with a simultaneous boost to the gross disease of 3000 cGy all delivered in 5 fractions. She was treated in the supine position with a 3D conformal treatment plan. Radiation Treatment History: 1) From 10/10/2023 ??? 10/17/2023: received palliative radiation therapy to the right breast consist (more content not included)... Normal [facility] 12 Lead [place] 12-31-2023 12 Lead [facility] Cardiovascular Services [address] [place] [address] 12 Lead [facility] 12/31/23 0618 MR#: [id number] Acct: [id number] Name: SHAGUFTA GUTIERREZ Rep #: [id number] : 1945 78 From: Vladislav Mendez MD Attending Dr: Status: DEP ER Ordering Dr: Vincent Brumfield DO Date: 12/31/23 Location: ED Sex: F C Admitted: Test Reason : CONFUSION Blood Pressure : */* mmHG Vent. Rate : 57 BPM Atrial Rate : 57 BPM P-R Int : 140 ms QRS Dur : 124 ms QT Int : 430 ms P-R-T Axes : 86 -30 91 degrees QTcB Int : 418 ms Sinus bradycardia Left axis deviation Left ventricular hypertrophy with QRS widening ( [place]au product , Romhilt-Rodriguez ) Cannot rule out Septal infarct , age undetermined Abnormal ECG Confirmed by VLADISLAV MENDEZ MD ([id number]), sample washer SHANNON MONSALVE ([id number]) on 12/31/2023 1:54:17 PM Referred By: Confirmed By: VLADISLAV MENDEZ MD 12/31/23 1354 Date Vladislav Mendez MD CC: Dr. Russell Shannon DO; Dr. Vincent Brumfield DO Signed Normal [facility] Brain/Head without Contrasto n 12-31-2023 Brain/Head without Contrast [facility] Imaging Services [address] [place], [place] [address] Brain/Head without Contrast MR#: [id number] Acct: [id number] Name: SHAGUFTA GUTIERREZ Rep #: [id number] : 1945 F 78 From: Cristi abdalla MD PCP: Dr. Russell Shannon DO Status: REG ER Study: Brain/Head without Contrast Date of Exam: 12/12 11/04 Exam# [id number] Ordering Dr: Vincent Brumfield DO [id number] EXAM: CT HEAD WITHOUT INTRAVENOUS CONTRAST CLINICAL INDICATION: confusion, AMS TECHNIQUE: Multiple axial images were obtained of the head without intravenous contrast. This CT exam was performed using one or more of the following dose reduction techniques: automated exposure control, adjustment of the mA and/or kV according to patient size, and/or use of iterative reconstruction technique. RADIATION DOSE: Total DLP: 880.47 mGy-cm. COMPARISON: CT of 03/11/2019. FINDINGS: BRAIN AND EXTRA-AXIAL SPACES: Findings of mild/moderate cerebral atrophy are noted with prominence of cortical sulci, basal cisterns, sylvian fissures and ventricles. Mild cerebellar atrophy also noted. Patchy chronic small vessel ischemic changes are noted within the deep white matter tracts. No intra- or extra-axial hemorrhage. No intracranial mass or mass effect. Waters-white matter differentiation is preserved. BONES/JOINTS: No linear or depressed skull fracture. No lytic osseous lesion. SOFT TISSUES: A broad cutaneous defect overlies the superior right frontal and parietal lobes, with surrounding irregular skin thickening, secondary to trauma versus cutaneous neoplasm. Additional mild soft tissue swelling overlies the left frontal sinus and right temporal bone. VASCULATURE: Atherosclerotic vascular calcification is present. The middle cerebral arteries are not hyperdense. SINUSES: Unremarkable as visualized. Clear. MASTOID AIR CELLS: Unremarkable. Clear. ORBITS: Visualized globes, extraocular muscles, optic nerves and retrobulbar fat appear unremarkable. CT/Brain/Head without Contrast IMPRESSION: Extensive cutaneous abnormalities overlying the right frontal and parietal bones. No associated lytic osseous lesion. Atrophy with chronic small vessel ischemic changes; no acute intracranial abnormality. Electronically Signed: Cristi Stewart MD at 7:25 [facility] , CC: Dr. Russell Shannon, DO; Dr. Vincent Brumfield, DO [employer]: Signed Normal [facility] CBC-Complete Blood Cnt No Di ffon 12-31-2023 Erythrocyte distribution width (RBC) [Ratio] 13.4 % Normal 11.6-14.6 [facility] Comment on above: Performed By: #### L 500.4050, L100.0500, L501.4020 #### [facility] [address] [place], [address] Hematocrit (Bld) [Volume fraction] 39.4 % Normal 37-47 [facility] Comment on above: Performed By: #### L 500.4050, L100.0500, L501.4020 #### [facility] [address] [place], [address] Hemoglobin (Bld) [Mass/Vol] 12.7 g/dL Normal 12.0-15.0 [facility] Comment on above: Performed By: #### L 500.4050, L100.0500, L501.4020 #### [facility] [address] [place], [address] MCH (RBC) [Entitic mass] 28.8 pg Normal 27.0-32.0 [facility] Comment on above: Performed By: #### L 500.4050, L100.0500, L501.4020 #### [facility] [address] [place], [address] MCHC (RBC) [Mass/Vol] 32.2 g/dL Normal 32-36 [facility] Comment on above: Performed By: #### L 500.4050, L100.0500, L501.4020 #### [facility] [address] [place], [address] MCV (RBC) [Entitic vol] 89.3 fL Normal 81-99 [facility] Comment on above: Performed By: #### L 500.4050, L100.0500, L501.4020 #### [facility] [address] [place], [address] Platelet mean volume (Bld) [Entitic vol] 9.7 fL Normal 6.2-12.0 [facility] Comment on above: Performed By: #### L 500.4050, L100.0500, L501.4020 #### [facility] [address] [place], [address] Platelets (Bld) [#/Vol] 244 10*3/uL Normal 150-450 [facility] Comment on above: Performed By: #### L 500.4050, L100.0500, L501.4020 #### [facility] [address] [place], [address] RBC (Bld) [#/Vol] 4.41 10*6/uL Normal 4.2-5.4 [facility] Comment on above: Performed By: #### L 500.4050, L100.0500, L501.4020 #### [facility] [address] [place], [address] RDW SD 44.1 fl High 35.1-43.9 [facility] Comment on above: Performed By: #### L 500.4050, L100.0500, L501.4020 #### [facility] [address] [place], [address] WBC (Bld) [#/Vol] 10.0 10*3/uL Normal 4.4-11.0 [facility] Comment on above: Performed By: #### L 500.4050, L100.0500, L501.4020 #### [facility] [address] [place], [address] Chest 1 View (Portable)on Chest 1 View (Portable) [facility] Imaging Services [address] [place] [address] Chest 1 View (Portable) MR#: [id number] Acct: [id number] Name: SHAGUFTA GUTIERREZ Rep #: [id number] : 1945 F 78 From: Cristi abdalla MD PCP: Dr. Russell Shannon, DO Status: [facility] ER Study: Chest 1 View (Portable) Date of Exam: 12/31/23 Exam# [id number] Ordering Dr: Vincent Brumfield DO [id number] EXAM: XR CHEST, 1 VIEW CLINICAL INDICATION: confusion TECHNIQUE: Frontal view of the chest. COMPARISON: Previous chest radiograph of 06/05/2013. FINDINGS: LUNGS AND PLEURAL SPACES: Lungs remain hyperinflated. No acute pulmonary infiltrates. No pneumothorax. No effusion. HEART: Normal heart size. Chronic pruning of the peripheral pulmonary vascular markings. No pulmonary vascular congestion. MEDIASTINUM: Thoracic aorta remains minimally elongated and calcific. BONES/JOINTS: Thoracic degenerative spurring. No acute osseous abnormality. SOFT TISSUES: Surgical clip projected within the right lower neck. RAD/Chest 1 View (Portable) IMPRESSION: Findings of pulmonary emphysema. No acute cardiopulmonary disease process identified. Electronically Signed: Cristi Stewart MD at 7:28 EST , CC: Dr. Russell Shannon, ; Dr. Vincent Brumfield DO [employer]: Signed Normal [facility] Comprehensive Metabolic Prof hion 12-31-2023 Albumin [Mass/Vol] 3.3 g/dL Normal 3.2-5.0 [facility] Comment on above: Order Comment: 'TROP ' Serial specimen #1, #2 or #3: 1 Performed By: #### L 500.4050, L100.0500, L501.4020 #### [facility] [address] [place], [address] Albumin/Globulin [Mass ratio] 0.9 {ratio} Normal 0.9-2.4 [facility] Comment on above: Order Comment: 'TROP ' Serial specimen #1, #2 or #3: 1 Performed By: #### L 500.4050, L100.0500, L501.4020 #### [facility] [address] [place], [address] ALK P 99 U/L Normal 45-117 [facility] Comment on above: Order Comment: 'TROP ' Serial specimen #1, #2 or #3: 1 Performed By: #### L 500.4050, L100.0500, L501.4020 #### [facility] [address] [place], [address] ALT [Catalytic activity/Vol] 24 U/L Normal 13-56 [facility] Comment on above: Order Comment: 'TROP ' Serial specimen #1, #2 or #3: 1 Performed By: #### L 500.4050, L100.0500, L501.4020 #### [facility] [address] [place], [address] AST [Catalytic activity/Vol] 26 U/L Normal 15-37 [facility] Comment on above: Order Comment: 'TROP ' Serial specimen #1, #2 or #3: 1 Performed By: #### L 500.4050, L100.0500, L501.4020 #### [facility] [address] [place], [address] Bilirubin [Mass/Vol] 0.50 mg/dL Normal 0.20-1.00 [facility] Comment on above: Order Comment: 'TROP ' Serial specimen #1, #2 or #3: 1 Result Comment: For patients on eltrombopag therapy, use of Dimension Cherry TBIL is not recommended. Performed By: #### L 500.4050, L100.0500, L501.4020 #### [facility] [address] [place], [address] BUN/CRE 20.6 RATIO High 10-20 [facility] Comment on above: Order Comment: 'TROP ' Serial specimen #1, #2 or #3: 1 Performed By: #### L 500.4050, L100.0500, L501.4020 #### [facility] [address] [place], [address] CA,Total 9.4 mg/dL Normal 8.5-10.1 [facility] Comment on above: Order Comment: 'TROP ' Serial specimen #1, #2 or #3: 1 Performed By: #### L 500.4050, L100.0500, L501.4020 #### [facility] [address] [place], [address] Chloride [Moles/Vol] 109 mmol/L High 98-107 [facility] Comment on above: Order Comment: 'TROP ' Serial specimen #1, #2 or #3: 1 Performed By: #### L 500.4050, L100.0500, L501.4020 #### [facility] [address] [place], [address] CO2 [Moles/Vol] 31.0 mmol/L Normal 21.0-32.0 [facility] Comment on above: Order Comment: 'TROP ' Serial specimen #1, #2 or #3: 1 Performed By: #### L 500.4050, L100.0500, L501.4020 #### [facility] [address] [place], [address] Creatinine [Mass/Vol] 1.02 mg/dL Normal 0.55-1.02 [facility] Comment on above: Order Comment: 'TROP ' Serial specimen #1, #2 or #3: 1 Result Comment: The validity of the calculated GFR GFRAA in patients over 70 years has not been determined. Clinical correlation is essential. Performed By: #### L 500.4050, L100.0500, L501.4020 #### [facility] [address] [place], [address] ECRCL 29.17 ml/min Normal [facility] Comment on above: Order Comment: 'TROP ' Serial specimen #1, #2 or #3: 1 Performed By: #### L 500.4050, L100.0500, L501.4020 #### [facility] [address] [place], [address] EST GFR - AA 67 mL/min Normal >60 [facility] Comment on above: Order Comment: 'TROP ' Serial specimen #1, #2 or #3: 1 Result Comment: Afri can Yemeni GFR Calc Performed By: #### L 500.4050, L100.0500, L501.4020 #### [facility] [address] [place], [address] GAP 3 Low 5-15 [facility] Comment on above: Order Comment: 'TROP ' Serial specimen #1, #2 or #3: 1 Performed By: #### L 500.4050, L100.0500, L501.4020 #### [facility] [address] [place], [address] GFR/1.73 sq M.predicted among non-blacks MDRD (S/P/Bld) [Vol rate/Area] 55 mL/min/{1.73_m2} Low >60 [facility] Comment on above: Order Comment: 'TROP ' Serial specimen #1, #2 or #3: 1 Result Comment: Non- GFR Calc Performed By: #### L 500.4050, L100.0500, L501.4020 #### [facility] [address] [place], [address] Globulin (S) [Mass/Vol] 3.5 g/dL Normal 2.2-4.2 [facility] Comment on above: Order Comment: 'TROP ' Serial specimen #1, #2 or #3: 1 Performed By: #### L 500.4050, L100.0500, L501.4020 #### [facility] [address] [place], [address] Glucose [Mass/Vol] 124 mg/dL High 74-106 [facility] Comment on above: Order Comment: 'TROP ' Serial specimen #1, #2 or #3: 1 Result Comment: Fast ing Glucose result from 100 to 125 mg/dL suggests IMPAIRED HOMEOSTASIS per A.D.A. criteria. Performed By: #### L 500.4050, L100.0500, L501.4020 #### [facility] [address] [place], [address] Potassium [Moles/Vol] 3.7 mmol/L Normal 3.5-5.1 [facility] Comment on above: Order Comment: 'TROP ' Serial specimen #1, #2 or #3: 1 Performed By: #### L 500.4050, L100.0500, L501.4020 #### [facility] [address] [place], [address] Sodium [Moles/Vol] 143 mmol/L Normal 136-145 [facility] Comment on above: Order Comment: 'TROP ' Serial specimen #1, #2 or #3: 1 Performed By: #### L 500.4050, L100.0500, L501.4020 #### [facility] [address] [place], [address] T PROT 6.8 g/dL Normal 6.4-8.2 [facility] Comment on above: Order Comment: 'TROP ' Serial specimen #1, #2 or #3: 1 Performed By: #### L 500.4050, L100.0500, L501.4020 #### [facility] [address] [place], [address] Urea nitrogen [Mass/Vol] 21 mg/dL High 7-18 [facility] Comment on above: Order Comment: 'TROP ' Serial specimen #1, #2 or #3: 1 Performed By: #### L 500.4050, L100.0500, L501.4020 #### [facility] [address] [place], [address] Emergency Department Summary on 12-31-2023 Emergency Department Summary [facility] Medical Records Department [address] [place] [address] Emergency Department Summary 12/31/23 MR#: [id number] Acct: [id number] Name: SHAGUFTA GUTIERREZ Rep #: [id number] : 1945 78 From: Vincent Brumfield DO PCP: Dr. Russell Shannon, DO Status:DEP ER Location: ED [facility] History of Present Illness Chief Complaint: Confusion PFSH [facility] Medical History Basal cell carcinoma of scalp Wears glasses Cancer Forgetfulness Anxiety Thyroid disease Arthritis Difficulty swallowing Former smoker Hypertension History of echocardiogram History of stress test Former smoker Neoplasm of skin of scalp Home Medications ???Medication ???Instructions ???Recorded ???Last Taken ???Type levothyroxine 100 mcg tablet 50 mcg PO DAILY 03/07/21 03/13/21 History losartan 25 mg tablet 100 mg PO QHS 03/07/21 Unknown History levothyroxine 50 mcg capsule 100 mcg PO IGNACIO 03/10/21 Unknown History propranolol 60 mg capsule,24 60 mg PO QHS 03/10/21 Unknown History hr,extended release vitamin B12 500 mcg-folic acid 400 1 tab PO DAILY 03/10/21 Unknown History mcg tablet donepezil 10 mg tablet 10 mg PO DAILY 09/17/23 Unknown History memantine 5 mg tablet 5 mg PO QAM 09/17/23 Unknown History Allergy/AdvReac Type Severity Reaction Status Date / Time codeine Allergy Other Verified 12/31/23 05:45 simvastatin Allergy Other Verified 12/31/23 05:45 Family History Mother Hypertension CVA (cerebral vascular accident) Other No pertinent family history Surgical History History of basal cell carcinoma excision History of local excision of skin lesion History of cystoscopy Hx of submandibular gland removal Hx of tubal ligation Hx of total thyroidectomy History of thyroid surgery Social History Smoking Status: Former smoker alcohol intake: current alcohol intake frequency: holidays/special occasions only details: 1 glass of wine substance use type: does not use additional social history: Does Not Take Aspirin Does Not Take Ibuprofen EXAM Physical Exam Const Vital Signs: 12/31/23 05:46 12/31/23 07:45 Temperature 98.4 F Temperature Source Oral Pulse Rate 61 66 Respiratory Rate 16 12 Blood Pressure 200/73 H 174/66 H Blood Pressure Mean 115 102 Pulse Ox 98 99 Oxygen Delivery Method Room Air Room Air Physical Exam Const Vital Signs: 12/31/23 05:46 12/31/23 07:45 Temperature 98.4 F Temperature Source Oral Pulse Rate 61 66 Respiratory Rate 16 12 Blood Pressure 200/73 H 174/66 H Blood Pressure Mean 115 102 Pulse Ox 98 99 Oxygen Delivery Method Room Air Room Air [facility] Narrative Medical decision making narrative: HISTORY OF PRESENT ILLNESS: 78-year-old female presents with concern for change in mental status. The patient states that they told her to come in. When asked who they are she suggests it was the EMS personnel that she called. She does not describe any physical symptoms other than I feel like shit. Patient denies any headaches, chest pain, vomiting, diarrhea, urinary complaints, shortness of breath, leg swelling, syncope. REVIEW OF SYSTEMS: Pertinent positives: confusion Pertinent negatives: Chest pain, fever, abdominal pain, difficulty urinating, focal weakness PHYSICAL EXAM: Nursing triage notes reviewed, Vital signs reviewed Constitutional: please see mdm HENT: MMM, large mass noted to scalp Eyes: Pupils equal round and reactive to light, Extraocular muscles intact Neck: No stridor, no JVD, full neck ROM Lungs: Clear to auscultation, No wheezing or rales. No increased work of breathing, no conversational dyspnea, no accessory muscle use, no nasal flaring. No respiratory distress noted Heart: Regular rate and rhythm, No murmurs, No rubs and No gallops, 2+ distal pulses (radial, femoral, posterior tibial) in all extremities Abdomen: Soft, there is no tenderness, rigidity, rebound or guarding, no obvious peritoneal signs, no palpable pulsatile abdominal masses, no auscultated abdominal bruit : No CVAT Extremities: No edema Neuro: No focal neurological deficits, patient was alert to person and place but not time. Cranial nerves II through XII intact, 5/5 strength in all extremities. Intact sensation to light touch in all extremities, 2+ reflexes bilateral patella tendons. Skin: No rash or lesions noted MEDICAL DECISION MAKING: Chief Complaint: confusion External records reviewed: Reviewed prior allergies, problem list, home medications. Baseline mental status documented thousand 20 is alert and orient x 3 (more content not included)... Normal [facility] L501.4020on 12-31-2023 TROPONIN-I HS 14 pg/mL Normal 3.0-54.0 [facility] Comment on above: Order Comment: 'TROP ' Serial specimen #1, #2 or #3: 1 Result Comment: Mendel saldana Note: New Test Units and Gender Specific Reference Ranges. For more information see Policy Stat Procedure Cherry High Sensitivity Troponin (TNIH) and attachments. Performed By: #### L 500.4050, L100.0500, L501.4020 #### [facility] [address] [place], [address] Urinalysis, Completeon 12-30 AMORPHOUS 3+ PHOS Normal [facility] Comment on above: Order Comment: RADHA CTOR TO SPECIFY Performed By: #### L 400.0001 #### [facility] [address] [place], [address] WBC 5-10 SEEN Normal 0-5 [facility] Comment on above: Order Comment: RADHA CTOR TO SPECIFY Performed By: #### L 400.0001 #### [facility] [address] [place], [address] BILIRUBIN URINE Negative Normal Negative [facility] Comment on above: Order Comment: RADHA CTOR TO SPECIFY Performed By: #### L 400.0001 #### [facility] [address] [place], [address] Clarity (U) Cloudy Normal Clear [facility] Comment on above: Order Comment: RADHA CTOR TO SPECIFY Performed By: #### L 400.0001 #### [facility] [address] [place], [address] Color (U) Yellow Normal Yellow [facility] Comment on above: Order Comment: RADHA CTOR TO SPECIFY Performed By: #### L 400.0001 #### [facility] [address] [place], [address] GLUCOSE, UR Normal Normal Normal [facility] Comment on above: Order Comment: RADHA CTOR TO SPECIFY Performed By: #### L 400.0001 #### [facility] [address] [place], [address] KETONE UR Negative Normal Negative [facility] Comment on above: Order Comment: RADHA CTOR TO SPECIFY Performed By: #### L 400.0001 #### [facility] [address] [place], [address] LEUK ESTERASE 500 /ul Abnormal Negative [facility] Comment on above: Order Comment: RADHA CTOR TO SPECIFY Performed By: #### L 400.0001 #### [facility] [address] [place], [address] Nitrite Ql (U) Negative Normal Negative [facility] Comment on above: Order Comment: RADHA CTOR TO SPECIFY Performed By: #### L 400.0001 #### [facility] [address] [place], [place], [facility] OCCULT BLOOD-UR 25 /ul Abnormal Negative [facility] Comment on above: Order Comment: RADHA CTOR TO SPECIFY Performed By: #### L 400.0001 #### [facility] [address] [place], [address] pH UR 7.0 Normal 5.0 - 8.0 [facility] Comment on above: Order Comment: RADHA CTOR TO SPECIFY Performed By: #### L 400.0001 #### [facility] [address] [place], [address] PROT DIPSTX 30 mg/dl Abnormal Negative [facility] Comment on above: Order Comment: RADHA CTOR TO SPECIFY Performed By: #### L 400.0001 #### [facility] [address] [place], [address] SP.GR. DIPSTX 1.010 Normal 1.002-1.030 [facility] Comment on above: Order Comment: RADHA CTOR TO SPECIFY Performed By: #### L 400.0001 #### [facility] [address] [place], [address] UROBILI Normal Normal Normal [facility] Comment on above: Order Comment: RADHA CTOR TO SPECIFY Performed By: #### L 400.0001 #### [facility] [address] [place], [address] BACTERIA 0 SEEN Normal None Seen [facility] Comment on above: Order Comment: RADHA CTOR TO SPECIFY Performed By: #### L [id number] #### [facility] [address] [place], [address] EPI,SQUAMOUS 0 SEEN Normal 5-10 [facility] Comment on above: Order Comment: RADHA CTOR TO SPECIFY Performed By: #### L [id number] #### [facility] [address] [place], [address] Mucus Ql (Urine sed) 0 SEEN Normal [facility] Comment on above: Order Comment: RADHA CTOR TO SPECIFY Performed By: #### L [id number] #### [facility] [address] [place], [address] RBC 0 SEEN Normal 0-5 [facility] Comment on above: Order Comment: RADHA CTOR TO SPECIFY Performed By: #### L [id number] #### [facility] [address] [place], [address] Radiation Oncology Visiton 1 Radiation Oncology Visit [facility] [address] [place] [address] OFFICE VISIT Date of Service: 11/14/23 1031 MR#: [id number] Acct: [id number] Name: SHAGUFTA GUTIERREZ Angelique Rep #: [id number] : 1945 From: Ken Law DO Age/Sex: 78/F Location: [facility] [place] Status: Signed Intake Vital Signs 10/16/23 13:24 11/14/23 10:32 Height 5 ft 5 in 5 ft 5 in Weight: 86 lb 7 oz 87 lb 4 oz BMI 14.3 14.5 BP 176/77 H 182/69 H Blood Pressure Location Lt brachial Rt brachial Position Sitting Sitting Respiration 18 16 Pulse 66 59 L Pulse Source Monitor Monitor Temp 97.0 F L 97.5 F L Temperature Source Temporal Artery Temporal Artery Pulse Oximetry (%) 92 95 Oxygen Delivery Method room air room air Intake Visit Reasons: 1 MONTH F/U POST RT Is patient in pain?: No Allergies codeine Allergy (Verified 11/14/23 10:34) Other simvastatin Allergy (Verified 11/14/23 10:34) Other Medications ???Medication ???Instructions ???Recorded ???Confirmed ???Type levothyroxine 100 mcg tablet 50 mcg PO DAILY 03/07/21 11/14/23 History losartan 25 mg tablet 100 mg PO QHS 03/07/21 11/14/23 History levothyroxine 50 mcg capsule 100 mcg PO IGNACIO 03/10/21 11/14/23 History propranolol 60 mg capsule,24 60 mg PO QHS 03/10/21 11/14/23 History hr,extended release vitamin B12 500 mcg-folic acid 400 1 tab PO DAILY 03/10/21 11/14/23 History mcg tablet donepezil 10 mg tablet 10 mg PO DAILY 09/17/23 11/14/23 History memantine 5 mg tablet 5 mg PO QAM 09/17/23 11/14/23 History Have you fallen in the past year?: Yes PFSH PFSH Medical History Basal cell carcinoma of scalp Wears glasses Cancer Forgetfulness Anxiety Thyroid disease Arthritis Difficulty swallowing Former smoker Hypertension History of echocardiogram History of stress test Former smoker Neoplasm of skin of scalp Home Medications ???Medication ???Instructions ???Recorded ???Last Taken ???Type levothyroxine 100 mcg tablet 50 mcg PO DAILY 03/07/21 03/13/21 History losartan 25 mg tablet 100 mg PO QHS 03/07/21 Unknown History levothyroxine 50 mcg capsule 100 mcg PO IGNACIO 03/10/21 Unknown History propranolol 60 mg capsule,24 60 mg PO QHS 03/10/21 Unknown History hr,extended release vitamin B12 500 mcg-folic acid 400 1 tab PO DAILY 03/10/21 Unknown History mcg tablet donepezil 10 mg tablet 10 mg PO DAILY 09/17/23 Unknown History memantine 5 mg tablet 5 mg PO QAM 09/17/23 Unknown History Allergy/AdvReac Type Severity Reaction Status Date / Time codeine Allergy Other Verified 11/14/23 10:34 simvastatin Allergy Other Verified 11/14/23 10:34 Family History Mother Hypertension CVA (cerebral vascular accident) Other No pertinent family history Surgical History History of basal cell carcinoma excision History of local excision of skin lesion History of cystoscopy Hx of submandibular gland removal Hx of tubal ligation Hx of total thyroidectomy History of thyroid surgery Social History Smoking Status: Former smoker alcohol intake: current alcohol intake frequency: holidays/special occasions only details: 1 glass of wine substance use type: does not use additional social history: Does Not Take Aspirin Does Not Take Ibuprofen Diagnosis: Shagufta Gutierrez is an 78 year-old female diagnosed with at least 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 From 10/10/2023 ??? 10/17/2023 she completed palliative radiation to the right breast. History of Present Illness: 03/13/2021: Had left frontal scalp lesion excised and was consistent with BCC. 09/13/2023: Patient completed bilateral diagnostic mammogram.??? This demonstrated a large mass in the upper outer quadrant of the right breast with a large amount of microcalcifications and deformity in the right breast.??? Biopsy strongly recommended.??? BI-RADS Category 5. 09/17/2023: Patient was evaluated by surgery.??? On exam there was found to be a large firm fungating right breast mass with open wound below the nipple with some oozing, nontender.??? Biopsies were taken.??? Pathology consistent with grade 2 IDC (ER 0%, AL 0%, Her2 1-2+ IHC) From 10/10/2023 ??? 10/17/2023: received palliative radiation therapy to the right breast consisting of 2600 cGy with a simultaneous boost to the gross disease of 3000 cGy all delivered in 5 fractions. She was treated in the supine position with a 3D conformal treatment plan. Radiation Treatment History: 1) From 10/10/2023 ??? 9/ (more content not included)... Normal [facility] Radiation Oncology Visiton 0 10-17-2023 Radiation Oncology Visit [facility] [address] [place] [address] OFFICE VISIT Date of Service: 10/17/23926 MR#: [id number] Acct: [id number] Name: SHAGUFTA GUTIERREZ Rep #: [id number] : 1945 From: Ken Law DO Age/Sex: 78/F Location: 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 Oncologic History: 09/13/2023: Patient completed bilateral diagnostic mammogram.??? This demonstrated a large mass in the upper outer quadrant of the right breast with a large amount of microcalcifications and deformity in the right breast.??? Biopsy strongly recommended.??? BI-RADS Category 5. 09/17/2023: Patient was evaluated by surgery.??? On exam there was found to be a large firm fungating right breast mass with open wound below the nipple with some oozing, nontender.??? Biopsies were taken.??? Pathology consistent with grade 2 IDC (ER 0%, AL 0%, Her2 1-2+ IHC) Radiation Treatment History: None The patient completed a course of external beam radiotherapy in our department. This treatment was delivered for palliative intent. Due to poor KPS and comorbidities as well as locally advanced nature of her disease she was not deemed a candidate to consider curative treatment. Treatment was given according to the following parameters: SHAGUFTA GUTIERREZ received palliative radiation therapy to the right breast consisting of 2600 cGy with a simultaneous boost to the gross disease of 3000 cGy all delivered in 5 fractions. She was treated in the supine position with a 3D conformal treatment plan. The patient did not receive concurrent chemotherapy. Date of First Treatment: 10/10/2023 Date of Last Treatment: 10/17/2023 Total Elapsed Days (including weekend and holidays): 6 Missed Treatments: 1 treatment due to holiday Response and Tolerance: The patient tolerated this course of radiotherapy well overall. The following radiation related toxicities developed during the course of radiation therapy: * Grade 1 fatigue Total weight change during therapy: N/A At the end of therapy the physical examination showed stable fungating breast disease. Disposition: The patient tolerated the planned course of radiation therapy well without unexpected toxicity in an appropriate time course. I reviewed management of potential toxicities and discussed expected timing for toxicity resolution. I will have SHAGUFTA follow-up in one month for a routine visit. [facility] will maintain follow up with all other providers. SHAGUFTA was instructed to call with any further questions or concerns in the interim. If we can provide any further information on this patient's course of care, please do not hesitate to ask. We would like to thank you very much for allowing us to participate in the care of this patient. Sincerely, Ken Law DO, MS [employer], Department of Radiation Oncology [facility] 10/17/23 5878 Date Ken Nicolas Signature: Date (if applicable) CC: Dr. Xavi Whitten MD; Dr. Russell Shannon DO; Dr. Priyanka Cook MD [facility] Radiation Oncology Visiton 0 10-16-2023 Radiation Oncology Visit [facility] [address] [place] [address] OFFICE VISIT Date of Service: 10/16/23 1323 MR#: [id number] Acct: [id number] Name: SHAGUFTA GUTIERREZ Rep #: [id number] : 1945 From: Ken Law DO Age/Sex: 78/F Location: [facility] [place] Status: Signed Intake Vital Signs 10/01/23 11:07 10/16/23 13:24 Height 5 ft 5 in 5 ft 5 in Weight: 86 lb 7 oz BMI 14.3 BP 176/77 H Blood Pressure Location Lt brachial Position Sitting Respiration 18 Pulse 66 Pulse Source Monitor Temp 97.0 F L Temperature Source Temporal Artery Pulse Oximetry (%) 92 Oxygen Delivery Method room air Intake Visit Reasons: OTV Accompanied by: Son Is patient in pain?: Yes (under arm) Allergies codeine Allergy (Verified 10/16/23 13:27) Other simvastatin Allergy (Verified 10/16/23 13:27) Other Medications ???Medication ???Instructions ???Recorded ???Confirmed ???Type levothyroxine 100 mcg tablet 50 mcg PO DAILY 03/07/21 10/16/23 History losartan 25 mg tablet 100 mg PO QHS 03/07/21 10/16/23 History levothyroxine 50 mcg capsule 100 mcg PO IGNACIO 03/10/21 10/16/23 History propranolol 60 mg capsule,24 60 mg PO QHS 03/10/21 10/16/23 History hr,extended release vitamin B12 500 mcg-folic acid 400 1 tab PO DAILY 03/10/21 10/16/23 History mcg tablet donepezil 10 mg tablet 10 mg PO DAILY 09/17/23 10/16/23 History memantine 5 mg tablet 5 mg PO QAM 09/17/23 10/16/23 History Have you fallen in the past year?: No PFSH PFSH Medical History Basal cell carcinoma of scalp Wears glasses Cancer Forgetfulness Anxiety Thyroid disease Arthritis Difficulty swallowing Former smoker Hypertension History of echocardiogram History of stress test Former smoker Neoplasm of skin of scalp Home Medications ???Medication ???Instructions ???Recorded ???Last Taken ???Type levothyroxine 100 mcg tablet 50 mcg PO DAILY 03/07/21 03/13/21 History losartan 25 mg tablet 100 mg PO QHS 03/07/21 Unknown History levothyroxine 50 mcg capsule 100 mcg PO IGNACIO 03/10/21 Unknown History propranolol 60 mg capsule,24 60 mg PO QHS 03/10/21 Unknown History hr,extended release vitamin B12 500 mcg-folic acid 400 1 tab PO DAILY 03/10/21 Unknown History mcg tablet donepezil 10 mg tablet 10 mg PO DAILY 09/17/23 Unknown History memantine 5 mg tablet 5 mg PO QAM 09/17/23 Unknown History Allergy/AdvReac Type Severity Reaction Status Date / Time codeine Allergy Other Verified 10/16/23 13:27 simvastatin Allergy Other Verified 10/16/23 13:27 Family History Mother Hypertension CVA (cerebral vascular accident) Other No pertinent family history Surgical History History of basal cell carcinoma excision History of local excision of skin lesion History of cystoscopy Hx of submandibular gland removal Hx of tubal ligation Hx of total thyroidectomy History of thyroid surgery Social History Smoking Status: Former smoker alcohol intake: current alcohol intake frequency: holidays/special occasions only details: 1 glass of wine substance use type: does not use additional social history: Does Not Take Aspirin Does Not Take Ibuprofen Diagnosis: Shagufta Gutierrez is an 78 year-old female diagnosed with at least clinical stage IIIB (cT4b cN0 Mx) grade 2 IDC (ER 0%, 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 Plan: Plan was made to complete palliative radiation therapy to the right breast consisting of 2600 cGy with a simultaneous boost to the gross disease of 3000 cGy all delivered in 5 fractions. Treatment Data: Treatment Site: Right breast Current total dose/Total dose planned: 2400 cGy / 3000 cGy Fraction number: 4 / 5 Chemotherapy: none Subjective: Pain: 0 / 10 Fatigue: none Breast: no edema, mild pain. No skin erythema, rash, desquamation. Stable fungating tumor. Resp: no SOB, cough Objective: Weight: 86 lbs 7 oz Physical Exam: Gen: NAD Right Breast: no edema, mild pain. No skin erythema, rash, desquamation. Stable fungating tumor. Labs: None Assessment Plan Assessment/Plan (1) Breast cancer, right breast: QUALIFIERS: Breast location: overlapping sites of breast Estrogen receptor status: negative Patient sex: female Qualified Code(s): C50.811 - Malignant neoplasm of overlapping sites of right female breast; Z17.1 - Estrogen receptor negative status [ER-] PLAN: Plan Assessment: Tolerating treatment well overall.??? I reviewed and approved all treatment associated imaging. No treatment a (more content not included)... Normal [facility] Oncology Visit Reporton 09-12 Oncology Visit Report [facility] [address] [place] [id number] OFFICE VISIT Date of Service: 10/01/23 1059 MR#: [id number] Acct: [id number] Name: SHAGUFTA GUTIERREZ Rep #: [id number] : 1945 From: Sachin Bolaños MD Age/Sex: 78/F Location: [facility] [place] Status: Signed HPI Subjective Date of Service 10/01/23 Chief Complaint Referred for R breast cancer and ulcer. History of Present Illness 78-year-old woman with dementia presented with right breast mass with ulceration. Mammogram on 09/13/2023 showed right breast mass with calcifications. She saw Dr. Cook on 09/17/2023 core biopsy was done. [facility] Medical History Basal cell carcinoma of scalp Wears glasses Cancer Forgetfulness Anxiety Thyroid disease Arthritis Difficulty swallowing Former smoker Hypertension History of echocardiogram History of stress test Former smoker Neoplasm of skin of scalp Surgical History History of basal cell carcinoma excision History of local excision of skin lesion History of cystoscopy Hx of submandibular gland removal Hx of tubal ligation Hx of total thyroidectomy History of thyroid surgery Family History Mother Hypertension CVA (cerebral vascular accident) Other No pertinent family history Social History Smoking Status: Former smoker alcohol intake: current alcohol intake frequency: holidays/special occasions only details: 1 glass of wine substance use type: does not use additional social history: Does Not Take Aspirin Does Not Take Ibuprofen ROS Eyes Eyes: Reports systems reviewed and no addt'l complaints, except as documented ENT HEENT: Reports systems reviewed and no addt'l complaints, except as documented Cardiovascular Cardiovascular: Reports systems reviewed and no addt'l complaints, except as documented Respiratory/Chest Respiratory/Chest: Reports systems reviewed and no addt'l complaints, except as documented Gastrointestinal Gastrointestinal: Reports systems reviewed and no addt'l complaints, except as documented Genitourinary Genitourinary: Reports systems reviewed and no addt'l complaints, except as documented Musculoskeletal Musculoskeletal: Reports systems reviewed and no addt'l complaints, except as documented Integumentary Integumentary: Reports systems reviewed and no addt'l complaints, except as documented and other Details: Scalp mass/ulcer Neurologic Neurologic: Reports systems reviewed and no addt'l complaints, except as documented Psychiatric Psychiatric: Reports systems reviewed and no addt'l complaints, except as documented and memory loss Endocrine Endocrinology: Reports systems reviewed and no addt'l complaints, except as documented Hematologic/Lymphatic Hematologic/Lymphatic: Reports systems reviewed and no addt'l complaints, except as documented Allergic/Immunologic Allergic/Immunologic: Reports systems reviewed and no addt'l complaints, except as documented Intake Vital Signs 09/17/23 13:07 09/26/23 11:06 10/01/23 11:01 10/01/23 11:03 10/01/23 11:07 Height 5 ft 5 in 5 ft 5 in 5 ft 5 in 5 ft 5 in 5 ft 5 in Weight: 38.584 kg 38.3 kg 38.3 kg BMI 14.1 14.0 14.0 BP 201/73 H 162/64 H Blood Pressure Location Rt brachial Lt brachial Position Sitting Sitting Respiration 16 18 Pulse 67 51 L Pulse Source Monitor Monitor Temp 97.5 F L 98 F Temperature Source Temporal Artery Temporal Artery Pulse Oximetry (%) 96 100 Oxygen Delivery Method room air room air Intake Is patient in pain?: Yes (discomfort/itchy right breast) Pain scale (1-10): 2 Allergies codeine Allergy (Verified 10/01/23 10:59) Other simvastatin Allergy (Verified 10/01/23 10:59) Other Medications ???Medication ???Instructions ???Recorded ???Confirmed ???Type levothyroxine 100 mcg tablet 50 mcg PO DAILY 03/07/21 10/01/23 History losartan 25 mg tablet 100 mg PO QHS 03/07/21 10/01/23 History levothyroxine 50 mcg capsule 100 mcg PO IGNACIO 03/10/21 10/01/23 History propranolol 60 mg capsule,24 60 mg PO QHS 03/10/21 10/01/23 History hr,extended release vitamin B12 500 mcg-folic acid 400 1 tab PO DAILY 03/10/21 10/01/23 History mcg tablet donepezil 10 mg tablet 10 mg PO DAILY 09/17/23 10/01/23 History memantine 5 mg tablet 5 mg PO QAM 09/17/23 10/01/23 History Have you fallen in the past year?: No Central Venous Access Central Venous Access: No 09/13/2023 Diagnostic mammogram reviewed. BI/DIAG MAMM W/CAD, BILAT IMPRESSION: Large mass in the right breast with large number of microcalcifications. Biopsy recommended. Exam Physical Exam Const aler (more content not included)... Normal [facility] Radiation Oncology Visiton 0 09-26-2023 Radiation Oncology Visit [facility] [place] [address] OFFICE VISIT Date of Service: 09/26/23 1102 MR#: [id number] Acct: [id number] Name: SHAGUFTA GUTIERREZ Rep #: [id number] : 1945 From: Ken Law DO Age/Sex: 78/F Location: [facility] Status: Signed Intake Vital Signs 09/17/23 13:07 09/26/23 11:06 Height 5 ft 5 in 5 ft 5 in Weight: 83 lb 2 oz 85 lb 1 oz BMI 13.8 14.1 BP 193/72 H 201/73 H Blood Pressure Location Rt brachial Rt brachial Position Sitting Sitting Respiration 16 16 Pulse 64 67 Pulse Source Monitor Monitor Temp 97.2 F L 97.5 F L Temperature Source Temporal Artery Pulse Oximetry (%) 97 96 Oxygen Delivery Method room air room air Intake Visit Reasons: CONSULT - BREAST Accompanied by: Other Family Is patient in pain?: No Allergies codeine Allergy (Verified 09/26/23 11:04) Other simvastatin Allergy (Verified 09/26/23 11:04) Other Medications ???Medication ???Instructions ???Recorded ???Confirmed ???Type levothyroxine 100 mcg tablet 50 mcg PO DAILY 03/07/21 09/26/23 History losartan 25 mg tablet 100 mg PO QHS 03/07/21 09/26/23 History levothyroxine 50 mcg capsule 100 mcg PO IGNACIO 03/10/21 09/26/23 History propranolol 60 mg capsule,24 60 mg PO QHS 03/10/21 09/26/23 History hr,extended release vitamin B12 500 mcg-folic acid 400 1 tab PO DAILY 03/10/21 09/26/23 History mcg tablet donepezil 10 mg tablet 10 mg PO DAILY 09/17/23 09/26/23 History memantine 5 mg tablet 5 mg PO QAM 09/17/23 09/26/23 History Have you fallen in the past year?: No PFSH PFSH Medical History Basal cell carcinoma of scalp Wears glasses Cancer Forgetfulness Anxiety Thyroid disease Arthritis Difficulty swallowing Former smoker Hypertension History of echocardiogram History of stress test Former smoker Neoplasm of skin of scalp Home Medications ???Medication ???Instructions ???Recorded ???Last Taken ???Type levothyroxine 100 mcg tablet 50 mcg PO DAILY 03/07/21 03/13/21 History losartan 25 mg tablet 100 mg PO QHS 03/07/21 Unknown History levothyroxine 50 mcg capsule 100 mcg PO IGNACIO 03/10/21 Unknown History propranolol 60 mg capsule,24 60 mg PO QHS 03/10/21 Unknown History hr,extended release vitamin B12 500 mcg-folic acid 400 1 tab PO DAILY 03/10/21 Unknown History mcg tablet donepezil 10 mg tablet 10 mg PO DAILY 09/17/23 Unknown History memantine 5 mg tablet 5 mg PO QAM 09/17/23 Unknown History Allergy/AdvReac Type Severity Reaction Status Date / Time codeine Allergy Other Verified 09/26/23 11:04 simvastatin Allergy Other Verified 09/26/23 11:04 Family History Mother Hypertension CVA (cerebral vascular accident) Other No pertinent family history Surgical History History of basal cell carcinoma excision History of local excision of skin lesion History of cystoscopy Hx of submandibular gland removal Hx of tubal ligation Hx of total thyroidectomy History of thyroid surgery Social History Smoking Status: Former smoker alcohol intake: current alcohol intake frequency: holidays/special occasions only details: 1 glass of wine substance use type: does not use additional social history: Does Not Take Aspirin Does Not Take Ibuprofen Referring Provider: Priyanka Cook MD Diagnosis: Shagufta Gutierrez is an 78 year-old female diagnosed with at least clinical stage IIIB (cT4b cN0 Mx) grade 2 IDC (ER 0%, 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 History of Present Illness: 09/13/2023: Patient completed bilateral diagnostic mammogram.??? This demonstrated a large mass in the upper outer quadrant of the right breast with a large amount of microcalcifications and deformity in the right breast.??? Biopsy strongly recommended.??? BI-RADS Category 5. 09/17/2023: Patient was evaluated by surgery.??? On exam there was found to be a large firm fungating right breast mass with open wound below the nipple with some oozing, nontender.??? Biopsies were taken.??? Pathology consistent with grade 2 IDC (ER 0%, AL 0%, Her2 1-2+ IHC) Radiation Treatment History: No prior history of radiation therapy. No pacemaker. No diagnosis of radiosensitizing comorbidity. Interval History: Patient presents for initial consultation. She does report having some very mild discomfort and itchiness within the right breast and this was brought to the attention of her PCP by her family members and this led to her diagnosis of breast cancer. She reports some oozing and bleeding occasi (more content not included)... Normal [facility] ER (initial)on 09-17-2023 ER (initial) -- ---- Patient Age/Sex Location Account Attending Physician ---- SHAGUFTA GUTIERREZ 78/F LABSPEC [id number] Dr. Priyanka Cook MD ---- Specimen: [id number] Received: 09/19/23 Status: KENTON Mcadams Num: [id number] Spec Type: IMMUNO Subm Dr: Dr. Priyanka Cook MD PHYSICIAN INSTITUTION [place] [address] SPECIMEN INFORMATION: Tissue Source: Right breast mass Clinical Info: Right breast mass Specimen Number: [id number] CPT code: 88544,24429r5,49850s6 METHODOLOGY: Deparaffinized sections of prefer/formalin-fixed tissue or PAP/DQ stained slides are incubated with monoclonal/polyclonal antibodies/oligonucleo tide probes. Localization is made via biotin free immunoperoxidase method. Appropriate controls are performed and reacted as expected. Results on target cell population are indicated in the following table: RESULTS: ANTIBODY / CLONE RESULT P53 (DO-7) negative, null pattern Ki-67 (30-9) positive, 85% CK8 (69njpaI02) positive CK5-6 (D5 1684) positive, focal Calponin-1 (XF394C) negative P40 (BC28) negative E-Cad (ECH-6) positive MOC-31 (4561) positive Factor VIII (R Ag) negative CD31 (MICHAEL/70A) negative MORPHOMETRIC ANALYSIS ER (clone 6F11) 0% AL (clone 16/1E2) 0% Her-2Neu (clone CB11) 2+ IN SITU HYBRIDIZATION (NATALIA) FOR HER2 Interpretation: Negative/ Not Amplified HER2 : CEP-17 Ratio: 2.1 Average HER2 Signal: 2.7 Average CEP-17 Signal: 1.28 Number of Tumor Cells Scanned: 50 Interpretative Information: The INFORM HER2 Dual NATALIA DNA Probe Cocktail assay is performed on formalin-fixed paraffin embedded tissue and determines HER2 gene status by detecting HER2 copies via silver in situ hybridization (SISH) and Chromosome 17 copies via chromogenic red in situ hybridization on tumor cells. A minimum of 20 cells representing > 10% of contiguous and homogeneous invasive ---- Patient Age/Sex Location Account Attending Physician ---- SHAGUFTA GUTIERREZ 78/F LABSPEC [id number] Dr. Priyanka Cook MD ---- RESULTS: (Continued) tumor cells were analyzed. HER2 gene status is classified as Non-amplified (HER2/Chr17 ratio < 2.0) or Amplified (HER2/Chr17 ratio greater than or equal to 2.0). If the resulting HER2/Chr17 ratio falls within 1.8 - 2.2 (Borderline), retesting by FISH is recommended. Reference: Barbie AC, Karie BUIH, Carey DG, et al: Recommendations for Human Epidermal Growth Factor Receptor 2 Testing in Breast Cancer: [place] Society of Clinical Oncology / College of [place] Pathologists Clinical Practice Guideline Update. J Clin Oncol 31:5469-2959, 2013. The prognostic test for HER2 is performed on formalin-fixed paraffin embedded tissue. A 3+ (positive) staining pattern is defined as intense, homogeneous, complete, circumferential membranous staining in >10% of contiguous tumor cells. A similar weak (2+) staining pattern is interpreted as equivocal. NATALIA follow-up testing is recommended for all equivocal cases. Positivity/negativity for ER/AL is reported if > or < 1% of the tumor cells are immuno- reactive, respectively. The ASCO/CAP criteria is used for scoring. Reference: Journal of Clinical Oncology, 2013; 31:9455-7708 2010; 16:5336-6707. Ischemic time: Less than one hour. Duration of fixation: 7 Hrs; Sample Adequate: Yes. These assays have not been validated on decalcified tissues. Results should be interpreted with caution given the likelihood of false negativity on decalcified specimens or fixation greater than 72 hours. Alternative testing methods (FISH/dualISH for Her2; gene expression for ER) are recommended, if applicable. Please notify the laboratory if additional testing is required. These tests were developed and their performance characteristics determined by [facility]. They may not have been cleared or approved by the U.S. Food and Drug Administration. The FDA has determined that such clearance or approval is not necessary. The above immunohistochemical/du alISH markers are ordered and reviewed by the Pathologist. The test for HER 2 is performed on formalin-fixed paraffin embedded tissue using the CB11 mouse monoclonal antibody ([employer]). A 3+ staining pattern is interpreted as positive and is defined as a strong membranous staining involving the entire cell membrane in over 30% of invasive tumor cells. A similar weak s (more content not included)... Normal [facility] Comment on above: Performed By: #### P ER #### [facility] [place] [address] [place], [address] Surgery Specimen Level Pablo 09-17-2023 Surgery Specimen Level IV ---- Patient Age/Sex Location Account Attending Physician ---- SHAGUFTA GUTIERREZ 78/F LABSPEC [id number] Dr. Priyanka Cook MD ---- Specimen: [id number] Received: 09/17/23 Status: KENTON Pema Num: [id number] Spec Type: BREAST BX Subm Dr: Dr. Priyanka Cook MD HEADER OPERATION: Biopsy of right breast mass PRE-OP DIAGNOSIS: Right breast mass TISSUE SUBMITTED: Right breast mass- likely cancer Ischemic Time: 1 minute Fixation Time: 7 hours ---- MICROSCOPIC DIAGNOSIS Right breast mass, core biopsy: Invasive ductal carcinoma. See cancer synoptic report below. AM/mr 09/19/2023 COMMENT INVASIVE BREAST CANCER SUMMARY: Procedure: Needle core biopsy Specimen Laterality: Right breast Tumor site: Right breast Histologic type: Invasive ductal carcinoma Provisional Histologic grade: 2 Tubule Differentiation Score: 3 Nuclear Pleomorphism Score: 2 Mitotic Rate Score: 1 Tumor Size ( greatest dimension): 9.5mm Ductal Carcinoma In situ: Not present Angiolymphatic Invasion: Not identified Microcalcifications: Not present Additional Findings: Mild chronic inflammation Breast Marker Study: [id number] ER: 0% AL: 0% Her2:Equivocal (1-2+) Ki67: 85% Her2 Dual NATALIA: Not Amplified/Negative The above summary is in compliance with College of [place] Pathology (CAP) Cancer Protocols Checklist and [place] Joint Committee on Cancer (AJCC), Staging Manual, 8th Ed. Case has been reviewed in consultation with Dr. Gross who concurs with the above diagnosis. IDC:SJ ---- Patient Age/Sex Location Account Attending Physician ---- SHAGUFTA GUTIERREZ 78/F LABSPEC [id number] Dr. Priyanka Cook MD ---- MICROSCOPIC DESCRIPTION Slides are reviewed. GROSS DESCRIPTION Received in fixative is one container labeled with the patient's name and designated Right breast mass. The specimen consists of two elongated fragments of julian-yellow fibroadipose tissue measuring in aggregate 1.5 x 0.2 x 0.1cm. The entire specimen is submitted in one cassette. ALEC/ 09/18/2023 TC:0 CPT:68673 ---- Patient Age/Sex Location Account Attending Physician ---- SHAGUFTA GUTIERREZ 78/F LABSPEC [id number] Dr. Priyanka Cook MD ---- Signed (signature on file) Dr. Maximiliano Taylor, 09/24/23 1333 ---- Normal [facility] Comment on above: Performed By: #### P SUIV #### [facility] [address] [place], [place], [address] Surgery Visit Reporton 09-16 Surgery Visit Report [facility] [address] [place] [address] OFFICE VISIT Date of Service: 09/17/23 MR#: [id number] Acct: [id number] Name: SHAGUFTA GUTIERREZ Rep #: [id number] : 1945 Provider: Dr. Priyanka perez MD Age/Sex: 78/F Location: [facility] Status: Signed Intake Vital Signs 03/13/21 11:23 09/13/23 13:03 09/17/23 13:07 Height 5 ft 5 in 5 ft 5 in 5 ft 5 in Weight: 83 lb 2 oz BMI 13.8 BP 193/72 H Blood Pressure Location Rt brachial Position Sitting Respiration 16 Pulse 64 Pulse Source Monitor Temp 97.2 F L Temp Source Temporal Pulse Oximetry (%) 97 Oxygen Delivery Method room air Intake Visit Reasons: BIRADS 5 Chief Complaint: birads 5 Is patient in pain?: No Allergies codeine Allergy (Verified 09/17/23 13:08) Other simvastatin Allergy (Verified 09/17/23 13:08) Other Medications ???Medication ???Instructions ???Recorded ???Confirmed ???Type levothyroxine 100 mcg tablet 50 mcg PO DAILY 03/07/21 09/17/23 History losartan 25 mg tablet 100 mg PO QHS 03/07/21 09/17/23 History levothyroxine 50 mcg capsule 100 mcg PO IGNACIO 03/10/21 09/17/23 History propranolol 60 mg capsule,24 60 mg PO QHS 03/10/21 09/17/23 History hr,extended release vitamin B12 500 mcg-folic acid 400 1 tab PO DAILY 03/10/21 09/17/23 History mcg tablet donepezil 10 mg tablet 10 mg PO DAILY 09/17/23 09/17/23 History memantine 5 mg tablet 5 mg PO QAM 09/17/23 09/17/23 History Have you fallen in the past year?: No PFSH Medical History (Reviewed 04/20/21 @ 16:47 by Stephenie Damon PERSONAL PROPERTY ASSESSOR, PERSONAL PROPERTY ASSESSOR-C) Anxiety Arthritis Basal cell carcinoma of scalp Cancer Difficulty swallowing Forgetfulness Former smoker Former smoker History of echocardiogram History of stress test Hypertension Neoplasm of skin of scalp Thyroid disease Wears glasses Surgical History History of basal cell carcinoma excision History of local excision of skin lesion History of cystoscopy Hx of submandibular gland removal Hx of tubal ligation Hx of total thyroidectomy History of thyroid surgery Family History (Updated 09/17/23 @ 13:07 by Sabiha Woodruff) Mother Hypertension CVA (cerebral vascular accident) Other No pertinent family history Social History Smoking Status: Former smoker alcohol intake: current alcohol intake frequency: holidays/special occasions only details: 1 glass of wine substance use type: does not use additional social history: Does Not Take Aspirin Does Not Take Ibuprofen HPI HPI HPI: 78-year-old female presents with her wvfgczxq-eo-toy due to right breast mass and abnormal mammogram. Patient does have past medical history for dementia unable to really tell us when she started to notice this. Enygfzgt-ei-icr states that she was wincing when getting out of the car this patient's son had her go see her PCP and the mammogram was ordered. Mammogram was given a BI- RADS 5 due to large right breast mass with numerous calcifications. Patient has been having some bleeding from the right breast as well for the past couple weeks. ROS General General: Yes fatigue; No weight change, appetite, colon cancer or breast cancer HEENT HEENT: No difficulty swallowing, eye injury, eye surgery, swollen glands or hoarseness Endo Endocrine: Yes thyroid disease; No diabetes mellitus, thyroid cancer, Hair loss, heat intolerance or cold intolerance Skin Skin: No rash or changing moles Breast Breast: Yes right breast lump and abnormal mammogram; No left breast lump, nipple discharge, breast pain or breast enlargement Musc Musculoskeletal: No back problems, arthritis, rheumatoid arthritis, gout or joint pain Cardio Cardiovascular: Yes high blood pressure; No murmur, pacemaker, heart disease, atrial fibrillation, heart attack, heart stent, palpitations, shortness of breat with exertion or chest pain Psych Psychiatric: Yes depression and anxiety; No hearing voices Resp Respiratory: No shortness of breath, No sleep apnea, No cough, No COPD, No asthma, No emphysema and No wheezing Gastro Gastrointestinal: No abdominal pain, No nausea or vomiting, No diarrhea, No constipation, No blood in stool, No acid reflux, No hemorrhoids, No ulcers, No gallbladder problem and No black,tarry stools [place] Hematologic: No blood thinners, No blood disorders, No bleeding, No anemia and No blood clots Neuro Neurologic: No numbness and No tingling Exam Const General: cooperative, healthy appearing and no acute distress [facility] Head: normal to inspection Chest Other: Breast inspection: Large firm fungating right breast mass with open wound below the nipple with oozing Right breas (more content not included)... Normal [facility] 09-16-2023 [facility] Telephone ([place]) SHAGUFTA GUTIERREZ ([id number]) 1945 F Date Time Provider Department 09/16/23 OSWALD BAXTER During your visit today, we recorded the following information about you: Danika Ford LPN 09/16/2023 3:03 PM Addendum New pt. Referral from Dr. Shannon, Right Breast with open bleeding lesion in 8o'clock position entire breast hard to touch with multiple raised lesions covering it. Left message on voicemail at [facility] needing to know if and when pt is scheduled for Biopsy or surgery. Pt. Scheduled to see Dr. Cook tomorrow 09/16 , they are planning on doing BX, Olesya office nurse will call again tomorrow with future plans. Also left message on pts. voicemail TAYLOR Sow Pamela S, LPN 09/17/2023 3:40 PM Signed Olesya from DR. Mcconnell office contacted us stating Pt. Is going to Follow up with Dr. Law @ [facility]. TAYLOR Sow Melanie, LPN 09/19/2023 5:01 PM Signed PSS- patient will still need an appointment with medical oncology. Please contact patient to make sure she is aware and offer her a new patient appointment here if she is not already set up with medical oncology at [facility]. TAYLOR Puga Stephanie 09/20/2023 8:41 AM Signed Left message for patient to return call. When she calls, please offer to scheduel with Dr. Baxter/Asmita as she will still need to see Medical Oncology. (Patient will be doing Rad/Onc at [facility]). Madelyn Mobley 09/23/2023 8:36 AM Signed Spoke to patient and scheduled as directed. Shell Duran 09/23/2023 8:38 AM Signed The son Alcides called back to cancel as patient is being seen at [facility] but does not know provider name. Rosalina De La Cruz LPN 09/23/2023 8:53 AM Signed Again, patient is only scheduled with Dr. Law (radiation oncology), I verified in their system. She will need to see medical oncology as stated below. TAYLOR Puga Brandy 09/23/2023 10:25 AM Signed I tried calling patient and son back to discuss the below but I was unable to reach then . I will try again later Madelyn Merritt 09/24/2023 11:19 AM Signed Lvm for patient to return the call Madelyn Valdez Allergies As of Date: 09/16/2023 Noted Allergy Reaction CODEINE 09/24/2005 14 - Other: See Comments Comments: palpitations [id number] REDUCTASE INHIBIT*10/08/2013 14 - Other: See Comments Comments: palpitations Date Reviewed: 12/04/2013 Reviewed by: Sachin Terrazas Lpn - Fully Assessed Prescriptions as of 09/24/2023 - levothyroxine (SYNTHROID) 50 mcg tablet Take 50 mcg by mouth daily before breakfast. - WELCHOL 3.75 gram pwpk - LOSARTAN 25 mg tablet - PROPRANOLOL LA 60 mg 24 hr capsule - aspirin, enteric coated 81 mg EC tablet Take 81 mg by mouth once daily. - PROPYLENE GLYCOL (SYSTANE BALANCE OPHTHALMIC) Use in eyes. - METHOTREXATE SODIUM 2.5 MG TAB Take as directed once a week - FOLIC ACID 1 MG TAB Take one(1) tablet daily. Problem List As Of Date 09/16/2023 Noted Resolved NONTOX UNINODULAR GOITER [E04.1] 09/25/2005 ENLARGEMENT LYMPH NODES [R59.9] 09/25/2005 Multinodular goiter [E04.2] 10/08/2013 Nontoxic multinodular goiter [E04.2] 10/28/2013 Encounter Status:Closed by MADELYN VALDEZ on 09/23/23 Normal [facility] DIAG MAMM W/CAD, BILATon DIAG MAMM W/CAD, BILAT [facility] Imaging Services [address] [place], [place] [id number] DIAG MAMM W/CAD, BILAT MR#: [id number] Acct: [id number] Name: SHAGUFTA GUTIERREZ Rep #: [id number] : 1945 F 78 From: Jean-Claude ventura MD PCP: Dr. Russell Shannon, DO Status: REG CL Study: DIAG MAMM W/CAD, BILAT Date of Exam: 09/13/23 Exam# [id number] Ordering Dr: Jyotsna Baldwin PERSONAL PROPERTY ASSESSOR-C [id number] MAMMOGRAPHY - BILATERAL SCREENING REASON FOR EXAM: Female, 78 years old. Routine annual screening examination. PERTINENT HISTORY: Non-contributory. TECHNIQUE: Digital bilateral breast radha (3D mammographic acquisition) in the CC and MLO projections. 2-D mediolateral oblique (MLO) and craniocaudad (CC) views of both breasts were obtained. CAD: Full Field Digital Mammography with Computer Added Detection was performed. COMPARISON: None. FINDINGS: Breast Composition: The breasts are extremely dense, which lowers the sensitivity of mammography. Large mass in the upper outer quadrant of the right breast with a large amount of the microcalcification and deformity of the right breast. Biopsy is strongly recommended. No other significant abnormalities are identified. BI/DIAG MAMM W/CAD, BILAT IMPRESSION: Large mass in the right breast with large number of microcalcifications. Biopsy recommended. ASSESSMENT CATEGORY: BIRADS Category 5: Highly Suggestive of Malignancy - Appropriate Action Should Be Taken. A letter regarding these results will be sent to the patient by the facility within 30 days. Approximately 10% of breast cancers are not detected by mammography. A normal mammogram should not delay biopsy of a clinically suspicious abnormality. [id number] Electronically Signed: Jean-Claude Najera MD at 10:13 EDT , CC: ALHAJI Baldwin; Dr. Russell Shannon, Grain Distributor: Signed Normal [facility] - Chemistry and C hemistry - challengeOrdered By: Russell Shannon on 09-25-2022 Free T4 [Mass/Vol] 1.31 ng/dL 0.76-1.46 [facility] No Panel InformationOrdered By: Russell Shannon on 09-25-2022 Ionized Calcium 5.38 mg/dL 4.36-5.20 [facility] Parathyroid Hormone (Intact) 65.0 pg/mL 18.4-80.1 [facility] Thyroid Stimulating Hormone (TSH) 9.04 uIU/mL 0.358-3.74 [facility] Vitamin D 25-Hydroxy 34.3 ng/mL [facility] Comment on above: Vitamin D 25(OH) Sta tus Range Deficiency <20 ng/mL (50nmol/L) Insufficiency 20 - 30 ng/mL (50 - 75 nmol/L) Sufficiency 30 - 100 ng/mL (75 - 250 nmol/L) Toxicity >100 ng/mL (>250 nmol/L) Serum or plasma calcitriol m easurement (mass/volume)Ordered By: Russell Shannon on 09-25-2022 1,25-dihydroxyvitamin D3 [Mass/Vol] 53.1 pg/mL 24.8-81.5 [facility] Comment on above: Performed at: [address] [id number] Director: Jacqui Peters MD, Phone: [phone] Absolute lymphocyte countOrd ered By: Russell Shannon on 08-28-2022 Lymphocytes Auto (Unsp spec) [#/Vol] 1.36 10*3/uL 0.83-4.51 [facility] Basophil percentageOrdered B y: Russell Shannon on 08-28-2022 Basophils/100 WBC (Bld) 0.9 % 0-1 [facility] Bilirubin [Mass/Vol] 0.50 mg/dL 0.20-1.00 [facility] Comment on above: For patients on eltr ombopag therapy, use of Dimension Cherry TBIL is not recommended. Chloride [Moles/Vol] 105 mmol/L 98-107 [facility] Eosinophils/100 WBC (Bld) 3.8 % 0-5 [facility] Glucose [Mass/Vol] 99 mg/dL 74-106 [facility] LDH [Catalytic activity/Vol] 257 U/L 84-246 [facility] Neutrophils (Bld) [#/Vol] 4.3 10*3/uL 2.0-7.7 [facility] Neutrophils/100 WBC (Bld) 66.5 % 47-70 [facility] Potassium [Moles/Vol] 3.7 mmol/L 3.5-5.1 [facility] Protein [Mass/Vol] 7.6 g/dL 6.4-8.2 [facility] Sodium [Moles/Vol] 141 mmol/L 136-145 [facility] WBC (Bld) [#/Vol] 6.5 10*3/uL 4.4-11.0 [facility] Blood erythrocytes count (nu mber/volume)Ordered By: Russell Shannon on 08-28-2022 RBC (Bld) [#/Vol] 4.75 10*6/uL 4.2-5.4 [facility] Blood hemoglobin measurement (mass/volume)Ordered By: Russell Shannon on 08-28-2022 Hemoglobin (Bld) [Mass/Vol] 13.7 g/dL 12.0-15.0 [facility] Blood lymphocytes/100 leukoc ytesOrdered By: Russell Shannon on 08-28-2022 Lymphocytes/100 WBC (Bld) 20.9 % 19-41 [facility] Blood monocytes/100 leukocyt esOrdered By: Russell Shannon on 08-28-2022 Monocytes/100 WBC (Bld) 7.7 % 0-10 [facility] Blood platelet mean volumeOr dered By: Russell Shannon on 08-28-2022 Platelet mean volume (Bld) [Entitic vol] 10.2 fL 6.2-12.0 [facility] Determination of erythrocyte mean corpuscular volume (MCV)Ordered By: Russell Shannon on 08-28-2022 MCV (RBC) [Entitic vol] 90.5 fL 81-99 [facility] Hematocrit Auto (Bld) [Volum e fraction]Ordered By: Russell Shannon on 08-28-2022 Hematocrit (Bld) [Volume fraction] 43.0 % 37-47 [facility] Iron measurement (mass/mass) Ordered By: Russell Shannon on 08-28-2022 Iron (Unsp spec) [Mass/Mass] 48 ug/dL 50-170 [facility] Laboratory - Chemistry and C hemistry - challengeOrdered By: Russell Shannon on 08-28-2022 ALP [Catalytic activity/Vol] 85 U/L 45-117 [facility] ALT [Catalytic activity/Vol] 34 U/L 13-56 [facility] CO2 [Moles/Vol] 30.0 mmol/L 21.0-32.0 [facility] Cobalamin (Vitamin B12) [Mass/Vol] 723 pg/mL 211-911 [facility] Free T4 [Mass/Vol] 1.38 ng/dL 0.76-1.46 [facility] Globulin (S) [Mass/Vol] 3.6 g/dL 2.2-4.2 [facility] Urea nitrogen/Creatinine [Mass ratio] 22.4 mg/mg 10-20 [facility] Laboratory - Hematology and Cell countsOrdered By: Russell Shannon on 08-28-2022 Erythrocyte distribution width (RBC) [Entitic vol] 42.6 fL 35.1-43.9 [facility] Erythrocyte distribution width (RBC) [Ratio] 12.9 % 11.6-14.6 [facility] Immature granulocytes/100 WBC (Bld) 0.200 % 0.0-0.9 [facility] Comment on above: IG% - Immature Granu locytes (promyelocytes, myelocytes and metamyelocytes) > 1% indicates that a LEFT SHIFT is Present. MCH (RBC) [Entitic mass] 28.8 pg 27.0-32.0 [facility] Nucleated RBC/100 WBC (Bld) [Ratio] 0 % 0-5 [facility] MCHC Auto (RBC) [Mass/Vol]Or dered By: Russell Shannon on 08-28-2022 MCHC (RBC) [Mass/Vol] 31.9 g/dL 32-36 [facility] No Panel InformationOrdered By: Russell Shannon on 08-28-2022 Estimated GFR (MDRD) Amer 64 mL/min >60 [facility] Comment on above: GFR Calc Estimated GFR (MDRD) Non-Af Amer 53 mL/min >60 [facility] Comment on above: Non- GFR Calc Thyroid Stimulating Hormone (TSH) 10.20 uIU/mL 0.358-3.74 [facility] Platelets bldOrdered By: Ellie Shannon on 08-28-2022 Platelets (Bld) [#/Vol] 275 10*3/uL 150-450 [facility] Serum or plasma albumin shon urement (mass/volume)Ordered By: Russell Shannon on 08-28-2022 Albumin [Mass/Vol] 4.0 g/dL 3.2-5.0 [facility] Serum or plasma albumin/glob ulin mass ratioOrdered By: Russell Shannon on 08-28-2022 Albumin/Globulin [Mass ratio] 1.1 {ratio} 0.9-2.4 [facility] Serum or plasma calcium shon urement (mass/volume)Ordered By: Russell Shannon on 08-28-2022 Calcium [Mass/Vol] 10.4 mg/dL 8.5-10.1 [facility] Serum or plasma creatinine m easurement (mass/volume)Ordered By: Russell Shannon on 08-28-2022 Creatinine [Mass/Vol] 1.07 mg/dL 0.55-1.02 [facility] Comment on above: The validity of the calculated GFR & GFRAA in patients over 70 years has not been determined. Clinical correlation is essential. Serum or plasma ferritin [place] surement (mass/volume)Ordered By: Russell Shannon on 08-28-2022 Ferritin [Mass/Vol] 81 ng/mL 8252 [facility] Serum or plasma transthyreti n measurement (mass/volume)Ordered By: Russell Shannon on 08-28-2022 Prealbumin [Mass/Vol] 25.5 mg/dL 20.0-40.0 [facility] Serum or plasma urea nitroge n measurement (mass/volume)Ordered By: Russell Shannon on 08-28-2022 Urea nitrogen [Mass/Vol] 24 mg/dL 7-18 [facility] Thin prep Papanicolaou smear with manual screeningOrdered By: Russell Shannon on 08-28-2022 Thin prep Papanicolaou smear with manual screening 36 U/L 15-37 [facility] Thin prep Papanicolaou smear with manual screening 6 5-15 [facility] Encounters Encounter Date Encounter Type Care Provider Facility Start: 08-07-2024 End: 08-07-[address] Russell Shannon DO Work Phone: -[facility] Start: 08-07-2024 End: 08-07-[address] Russell Shannon DO -[facility] Start: 08-07-2024 End: 08-07-[address] [facility] Facility:[facility] Start: 02-13-2024 End: 02-13-[address] [facility] Facility:[facility] Start: 12-31-2023 End: 12-31-2023 Emergency department patient visit [facility] Facility:[facility] Start: 11-14-2023 End: 11-14-2023 ambulatory [facility] Start: 10-17-2023 ambulatory [facility] Facility: [facility] Start: 10-16-2023 End: 10-16-2023 ambulatory [facility] Start: 10-10-2023 ambulatory [facility] Start: 10-09-2023 ambulatory [facility] Start: 10-02-2023 ambulatory [facility] Start: 10-01-2023 End: 10-01-2023 ambulatory [facility] Start: 09-26-2023 End: 09-26-2023 ambulatory [facility] Start: 09-17-2023 End: 09-17-2023 ambulatory [facility] Facility:[facility] Start: 09-17-2023 End: 09-17-2023 ambulatory [facility] Facility:[facility] Start: 09-16-2023 Telephone encounter Oswald guardado DO Work Phone: Hematology/Oncology Start: 09-13-2023 End: 09-13-2023 ambulatory [facility] Facility:[facility] Start: 09-25-2022 End: 09-25-2022 ambulatory [facility] Work Phone: Start: 09-25-2022 End: 09-25-2022 Patient encounter procedure [facility]-Laboratory, [facility] Start: 08-28-2022 End: 08-28-2022 ambulatory [facility] Work Phone: Start: 08-28-2022 End: 08-28-2022 Patient encounter procedure [facility] Procedures Date Procedure Procedure Detail Performing Clinician H/O: surgery History of basal cell carcinoma excision Comment on above: Excision 2 cm ulcera vince basal cell carcinoma left frontal scalp with FTSG reconstruction from bilateral necks (14 cm2) - 03/13/21 Plan of Treatment Date Care Activity Detail Author Start: 10-13-2023 Influenza vaccination Influenza Vaccine (#1) [facility] Start: 02-11-2023 Advance Directive Discussion Advance Directive Discussion [facility] Start: 10-12-2022 Covid-19 Vaccine ( season) Covid-19 Vaccine ( season) [facility] Start: 09-25-2022 Procedure [facility] Start: 2008 Pneumococcal Vaccine: 65+ (1 of 1 - PCV) Pneumococcal Vaccine: 65+ (1 of 1 - PCV) [facility] Start: 2008 Screening for osteoporosis Bone Density Screening [facility] Start: 2003 RSV Vaccine (1 - 1-dose 60+ series) RSV Vaccine (1 - 1-dose 60+ series) [facility] Start: 1993 Shingrix Vaccine (1 of 2) Shingrix Vaccine (1 of 2) [facility] Start: 1988 Diabetes Screening Diabetes Screening [facility] Start: 1962 Urine microalbumin profile DTaP,Tdap,Td Vaccine (1 - Tdap) [facility] Start: 1961 Anxiety Screening Anxiety Screening [facility] Start: 1961 Depression Screening Depression Screening [facility] Immunizations Immunization Date Immunization Notes Care Provider Fa cility 05-20-2020 Covid (Pfizer) [facility] 04-29-2020 Covid (Pfizer) [facility] 03-11-2019 tetanus toxoid, redu flaquita diphtheria toxoid, and acellular pertussis vaccine, adsorbed [facility] 02-11-2010 pneumococcal vaccine , unspecified formulation [facility] Payers Date Payer Category Payer Self-pay [id number] 2013 Medicare HUMANA MEDICARE HUMANA MEDICARE PFFS [id number] 2013-Present [phone] [address] [address] [place] [address] Indemnity [id number] 2012 Private Health Insurance [id number] 2008 Medicare [id number] Unknown [id number]. [id number] Unknown [id number]. 2.462 Unknown [id number] [id number]. 2.462 Unknown [id number]. 2.462 Unknown [id number] [id number]. 2.462 Unknown [id number] [id number]. 2.462 Unknown [id number] [id number]. 2.462 Unknown [id number] [id number]. 2.462 Unknown [id number] [id number]. 2.462 Unknown [id number] [id number]. 2.462 Unknown [id number] [id number]. 2.462 Unknown [id number] [id number]. 2.462 Unknown [id number] [id number]. 2.462 Unknown [id number] [id number]. 2.462 Unknown [id number]. 2.462 Social History Date Type Detail Facility [facility]: [facility] Start: 06-06-2013 None [facility] Start: 06-06-2013 Alone [facility] Start: 1945 Sex Assigned At Female [facility] Start: 10-08-2013 End: 12-31-2023 Tobacco smoking status NHIS Ex-smoker [facility] History of tobacco use Current smoker [facility] History of tobacco use Cigarette Smoker [facility] Start: 12-08-2013 Alcohol intake Current drinke r of alcohol (finding) [facility] Start: 1945 Sex Assigned At Not on file [facility] Gender identity Not on file [facility] Clinical Notes 09-16-2023 to 09-23-2023 Telephone Encounter - Zahira Najera - 09/23/2023 10:24 AM EDTTelephone Encounter - Zahira Najera - 09/23/2023 10:24 AM EDTTelephone Encounter - Rosalina De La Cruz LPN - 09/23/2023 8:52 AM EDT Note Date & Type Note Facility 09-23-2023 Telephone encount er Note I tried calling patient and son back to discuss the below but I was unable to reach then . I will try again later Zahira Lee [facility] 09-23-2023 Miscellaneous Notes Formattin g of this note might be different from the original. I tried calling patient and son back to discuss the below but I was unable to reach then . I will try again later Zahira Lee Again, patient is only scheduled with Dr. Law (radiation oncology), I verified in their system. She will need to see medical oncology as stated below. Rosalina De La Cruz LPN The son Alcides called back to cancel as patient is being seen at [facility] but does not know provider name. Spoke to patient and scheduled as directed. Madelyn Valdez Left message for patient to return call. When she calls, please offer to scheduel with Dr. Baxter/Asmita as she will still need to see Medical Oncology. (Patient will be doing Rad/Onc at [facility]). Shaista Johns PSS- patient will still need an appointment with medical oncology. Please contact patient to make sure she is aware and offer her a new patient appointment here if she is not already set up with medical oncology at [facility]. Rosalina De La Cruz LPN Olesya from DR. Mcconnell office contacted us stating Pt. Is going to Follow up with Dr. Law @ [facility]. Danika Ford LPN New pt. Referral from Dr. Shannon, Right Breast with open bleeding lesion in 8o'clock position entire breast hard to touch with multiple raised lesions covering it. Left message on voicemail at [facility] needing to know if and when pt is scheduled for Biopsy or surgery. Pt. Scheduled to see Dr. Cook tomorrow 09/16 , they are planning on doing BX, Olesya office nurse will call again tomorrow with future plans. Also left message on pts. voicemail Danika Ford LPN documented in this encounter [facility] 09-23-2023 Telephone encount er Note Again, patient is only scheduled with Dr. Law (radiation oncology), I verified in their system. She will need to see medical oncology as stated below. Rosalina De La Cruz LPN [facility] 09-23-2023 Telephone encount er Note The son Alcides called back to cancel as patient is being seen at [facility] but does not know provider name. [facility] 09-23-2023 Telephone encount er Note Spoke to patient and scheduled as directed. Madelyn Valdez [facility] 09-20-2023 Telephone encount er Note Left message for patient to return call. When she calls, please offer to scheduel with Dr. Baxter/Asmita as she will still need to see Medical Oncology. (Patient will be doing Rad/Onc at [facility]). Shaista Johns [facility] 09-19-2023 Telephone encount er Note PSS- patient will still need an appointment with medical oncology. Please contact patient to make sure she is aware and offer her a new patient appointment here if she is not already set up with medical oncology at [facility]. Rosalina De La Cruz LPN [facility] 09-17-2023 Telephone encount er Note Olesya from DR. Mcconnell office contacted us stating Pt. Is going to Follow up with Dr. Law @ [facility]. Danika Ford LPN [facility] 09-16-2023 Telephone encount er Note New pt. Referral from Dr. Shannon, Right Breast with open bleeding lesion in 8o'clock position entire breast hard to touch with multiple raised lesions covering it. Left message on voicemail at [facility] needing to know if and when pt is scheduled for Biopsy or surgery. Pt. Scheduled to see Dr. Cook tomorrow 09/16 , they are planning on doing BX, Olesya office nurse will call again tomorrow with future plans. Also left message on pts. voicemail Danika Ford LPN [facility] Evaluation note No assessment inform ation available [facility] Work Phone: Reason for referral (narrative) No reaso n for referral information available [facility] Work Phone: Advance Directives No Advanced Directives Records Found Advance Directive Response Recorded Date/ Time Advance Directives Yes November 19, 2013 1:13pm Living Will Yes March 10 3:35pm Power of Cut Off [place]yer Yes March 10, 2021 3:35pm Advance Directive Response Recorded Date/ Time Advance Directives Yes September 12 1:03pm Summary Purpose Family History Relationship Condition Age at Onset Recorded Date/T kennedi Not Specified No pertinent family history Unknown mother Hypertension Unknown Cerebrovascular accident (CVA) Unknown No Family History Records Found Additional Source Comments Care Teams (unrecognized sec tion and content) Team Status: Active Member Role Status Dates Dr. Russell Shannon , Family Provider Active Dr. Russell Shannon DO Primary Care Provider Active Team Status: Inactive Member Role Status Dates Dr. Russell Shannon , DO Primary Care Prov ider, Attending Provider, Referring Provider Active Team Status: Active Member Role/Relationship Status Dates Dr. Russell Shannon DO Family Provider Active Dr. Russell Shannon DO Primary Care Provider Active Team Status: Inactive Member Role/Relationship Status Dates Dr. Russell Shannon DO Primary Care Provider Active Start: August 07, 2024 End: August 07, 2024 Dr. Russell Shannon DO Attending Provider Active Start: August 07, 2024 End: August 07, 2024 Goals (unrecognized section and content) Goals may be documented in a n alternate sectionGoals may be documented in an alternate sectionGoals may be documented in an alternate section Source Comments (unrecognize d section and content) In the event this informatio n is protected by the Federal Confidentiality of Alcohol and Drug Abuse Patient Records regulations: The Federal rules restrict any use of the information to criminally investigate or prosecute any alcohol or drug abuse patient.[facility] INFORMATION SOURCE (unrecogn ized section and content) DATE CREATED AUTHOR 09/26/2023 [facility] DATE CREATED AUTHOR KIM LOPEZ 08/14/2024 [facility] FOR RECORDS PERTAINING TO PATIENTS WHO ARE OR HAVE BEEN ENROLLED IN A CHEMICAL DEPENDENCY/SUBSTANCEABUSE PROGRAM, SOME INFORMATION MAY BE OMITTED. This clinical summary was aggregated from multiple sources. Caution should be exercised in using it in the provision of clinical care. This summary normalizes information from multiple sources, and as a consequence, information in this document may materially change the coding, format and clinical context of patient data. In addition, data may be omitted in some cases. CLINICAL DECISIONS SHOULD BE BASED ON THE PRIMARY CLINICAL RECORDS. [id number] provides no warranty or guarantee of the accuracy or completeness of information in this document.
[2024-10-18 18:12] LABS: AST(SGOT) 67 U/L (<=31); Alanine Aminotransfer ALT/SGPT 24 U/L (<=34); Albumin, Serum 3.2 g/dL (3.4-4.8); Alkaline Phosphatase 100 U/L (35-104); Anion Gap 14 (5-15); BUN 36 mg/dL (4-19); BUN/Creat Ratio 27.2 RATIO (10-20); Calcium,Total 9.9 mg/dL (7.6-11.0); Carbon Dioxide 20.3 mmol/L (21.0-32.0); Chloride 104 mmol/L (98-108); Estimated Creatinine Clearance 20.08 ml/min (50-250); Globulin 3.2 g/dL (2.2-4.2); Glucose 104 mg/dL (70-99); Potassium 3.8 mmol/L (3.3-5.1)
[2024-10-18 18:25] LABS: Troponin T High Sensitivity 29 ng/L (<=14)
[2024-10-18 18:43] LABS: Mucous, Urine 0 SEEN /hpf (<or=2+)
[2024-10-18 18:45] VITALS: BP 128/88; PULSE 62; RESP 18; TEMP 37.1; O2SAT 100
[2024-10-18 18:48] LABS: Color, Urine Yellow (Yellow); Glucose, Dipstick Normal (Normal); Ketone-Dipstick Negative (Negative); Leukocyte Esterase-Dipstick 500 /ul (Negative); Nitrite-Dipstick Positive (Negative); Occult Blood-Urine 50 /ul (Negative); Protein-Dipstick 30 mg/dl (Negative); Specific Gravity, Urine 1.025 (1.002-1.030); Urine Bilirubin Dipstick Negative (Negative)
[2024-10-18 19:06] LABS: Red Blood Cells-Urine 0-5 SEEN /hpf (0-5); Squamous Epithelial Cells - UA 0-5 SEEN /hpf (5-10)
[2024-10-18 19:23] VITALS: BP 176/44; PULSE 52; RESP 16; TEMP 36.6; O2SAT 92
[2024-10-18 20:00] VITALS: BP 147/58; PULSE 51; RESP 18; TEMP 36.6; O2SAT 92
[2024-10-18] MEDS: Azithromycin 500 MG in 0.9% Normal Saline (250mL Bag) 250 ML 250 MG IV (20:27)
[2024-10-18] MEDS: 0.9% Normal Saline (250mL Bag) 250 ML 15 ML IV (20:28)
--- NOTE | 2024-10-18 20:30 | PCM.HP.STD ---
HPI - General General Date of Admission: 10/18/24 Date of Service: 10/18/24 Chief Complaint: AMS HPI Narrative SHAGUFTA CHAVES, is a 79-year-old female history of hypertension, breast cancer, memory impairment, hypothyroidism, basal cell carcinoma of the scalp who presented [facility] ED 10/18/2024 due to some confusion on top of her usual memory problems and she complained of some shortness of breath today. In the ED patient afebrile, heart rate 56 and blood pressure 139/69, respiratory rate 14 and pulse ox 97% on room air. CBC with white count 8.6, hemoglobin 12.3, CMP with a BUN of 36 and a creatinine of 1.32, BUN of 36 and creatinine 1.32, glucose 104. Troponin 29, brain CT with no intracranial hemorrhage. Chest x-ray demonstrated extensive pulmonary opacities worrisome for malignancy/metastatic disease. UA obtained which was suspicious for infection. Patient given antibiotics and hospitalist contacted for admission. Patient evaluated at bedside with son present, son provided most of the history as patient is confused and has a difficult time answering questions, she has had difficulties with her memory for 3 years however has been worse over the past 3 to 4 days and she has been increasingly very tired and fatigued recently, shortness of breath she only complained of today without cough or fever. Has some constant sinus problems but nothing new, denies chest pain or diarrhea or abdominal pain. She is unsure if she has had any urinary changes [facility] Medical History Basal cell carcinoma of scalp Wears glasses Cancer Forgetfulness Anxiety Thyroid disease Arthritis Difficulty swallowing Former smoker Hypertension History of echocardiogram History of stress test Former smoker Neoplasm of skin of scalp Home Medications ?Medication ?Instructions ?Recorded ?Last Taken ?Type levothyroxine 100 mcg tablet 50 mcg PO DAILY 03/07/21 03/13/21 History losartan 25 mg tablet 100 mg PO QHS 03/07/21 Unknown History levothyroxine 50 mcg capsule 100 mcg PO IGNACIO 03/10/21 Unknown History propranolol 60 mg capsule,24 60 mg PO QHS 03/10/21 Unknown History hr,extended release vitamin B12 500 mcg-folic acid 400 1 tab PO DAILY 03/10/21 Unknown History mcg tablet donepezil 10 mg tablet 10 mg PO DAILY 09/17/23 Unknown History memantine 5 mg tablet 5 mg PO BID 09/17/23 Unknown History levothyroxine 75 mcg tablet 75 mcg PO DAILY 10/18/24 Unknown History losartan 100 mg tablet 100 mg PO DAILY 10/18/24 Unknown History sertraline 50 mg tablet 50 mg PO DAILY 10/18/24 Unknown History Allergy/AdvReac Type Severity Reaction Status Date / Time codeine Allergy Other Verified 10/18/24 17:16 simvastatin Allergy Other Verified 10/18/24 17:16 Family History Mother Hypertension CVA (cerebral vascular accident) Other No pertinent family history Surgical History History of basal cell carcinoma excision History of local excision of skin lesion History of cystoscopy Hx of submandibular gland removal Hx of tubal ligation Hx of total thyroidectomy History of thyroid surgery Social History (Updated 10/18/24 @ 17:40 by Bernadette Ponce) housing: house Smoking Status: Former smoker alcohol intake: current alcohol intake frequency: holidays/special occasions only details: 1 glass of wine substance use type: does not use additional social history: Does Not Take Aspirin Does Not Take Ibuprofen ROS ROS Narrative General: Denies fever/chills HENT: Denies headache, some problems with nasal congestion EYES: Denies changes in vision Resp: Denies cough, increased shortness of breath today Cardiac: Denies chest pain GI: Denies abdominal pain, denies changes in bowel, denies nausea/vomiting : Unsure if she has had changes in urination Extremity: Denies swelling MSK: Feels generally weak and tired Neuro: Denies any numbness/tingling Skin: Has basal cell on forehead Psychiatric: Patient reports she feels lost Vital Signs Vital Signs Vital Signs: 10/18/24 17:16 10/18/24 17:40 10/18/24 18:45 Temperature 97.8 F 98.6 F 98.7 F Temperature Source Oral Oral Temporal Pulse Rate 56 L 58 L 62 Respiratory Rate 14 20 H 18 Blood Pressure 139/69 H 132/80 H 128/88 H Blood Pressure Mean 92 97 101 Pulse Ox 97 99 100 Oxygen Delivery Method Room Air Room Air 10/18/24 19:23 10/18/24 20:00 Temperature 97.9 F 97.9 F Temperature Source Oral Pulse Rate 52 L 51 L Respiratory Rate 16 18 Blood Pressure 176/44 H 147/58 H Blood Pressure Mean 88 87 Pulse Ox 92 92 Oxygen Delivery Method Room Air Weight Weight: 38.056 kg Body Mass Index (BMI) 13.9 Physical Exam Narrative General: Alert, confused, difficulty answering questions HEENT: Atraumatic, does have an obvious basal cell carcinoma on forehead Eyes: Anicteric, normal conjunctiva, extraocular movements grossly intact Neck: Supple Respiratory: Diminished bilaterally, poor inspiratory effort Cardiovascular: Regular rate and rhythm GI: Soft, nontender, nondistended Extremities: No edema Musculoskeletal: Moving all extremities Neuro: No overt focal neurological deficits Skin: An obvious basal cell carcinoma on her left side of her forehead Psych: Cooperative Results Lab / Micro Data 10/18/24 17:48 10/18/24 17:48 Labs: Laboratory Results - last 24 hr 10/18/24 17:48: WBC 8.6, RBC 4.43, Hgb 12.3, Hct 38.0, MCV 85.8, MCH 27.8, MCHC 32.4, RDW Std Deviation 47.4 H, RDW Coeff of Andrew 15.6 H, Plt Count 317, MPV 9.4, Sodium 138, Potassium 3.8, Chloride 104, Carbon Dioxide 20.3 L, Anion Gap 14, BUN 36 H, Creatinine 1.32 H, Estim Creat Clear Calc 20.08 L, Est GFR (MDRD) Non-Af 41 L, BUN/Creatinine Ratio 27.2 H, Glucose 104 H, Calcium 9.9, Total Bilirubin 0.28, AST 67 H, ALT 24, Alkaline Phosphatase 100, Troponin T High Sens 29 H, Total Protein 6.4, Albumin 3.2 L, Globulin 3.2, Albumin/Globulin Ratio 1.0 10/18/24 18:39: Urine Color Yellow, Urine Clarity Sl. Cloudy, Urine pH 5.0, Ur Specific Holcomb 1.025, Urine Protein 30 H, Urine Glucose (UA) Normal, Urine Ketones Negative, Urine Occult Blood 50 H, Urine Nitrite Positive H, Urine Bilirubin Negative, Urine Urobilinogen Normal, Ur Leukocyte Esterase 500 H, Urine RBC 0-5 SEEN, Urine WBC 5-10 SEEN, Ur Squamous Epith Cells 0-5 SEEN, Urine Bacteria 3+, Urine Mucus 0 SEEN Imaging Radiology Impression Brain CT 10/18/24 17:40 IMPRESSION: Focal soft tissue swelling and gas along the left frontal scalp to be correlated for soft tissue injury. No acute intracranial hemorrhage or acute calvarial fracture. - Global parenchymal volume loss and associated ex vacuo ventricular dilation. - Intracranial atherosclerosis and microvascular ischemic changes again noted. - Other findings discussed above. Reading [facility] Chest X-Ray 10/18/24 17:55 IMPRESSION: Extensive pulmonary opacities, worrisome for malignancy/metastatic disease. Superimposed pneumonia can not be ruled out. Findings and recommendations discussed above. Reading Location[facility] Assessment & Plan Assessment/Plan (1) UTI (urinary tract infection): PLAN: Plan # Acute metabolic encephalopathy suspect secondary to urinary tract infection on top of chronic dementia -UA suspicious for infection -Will treat empirically with IV antibiotics while waiting further culture and sensitivity data # Abnormal chest x-ray -Patient does have history of basal cell carcinoma and breast cancer, she underwent palliative radiation last year for breast cancer -Suspect that this is metastatic in nature but a CT with contrast would be able to better characterize chest findings -Kidney function is up from baseline, suspect due to patient's poor p.o. intake -Gentle IVF and will schedule CT chest/abdomen/pelvis with contrast for the a.m. once patient hydrated -Patient without productive cough or elevated white count, lower suspicion for a superimposed pneumonia however cannot rule it out based on current imaging, will already be on Rocephin, will add azithromycin until further imaging -I/s - Albuterol as needed #Hypothyroidism -Continue Synthroid #Hypertension - Hold home losartan with kidney function, can likely add back on discharge -Continue propranolol -prn Hydralazine # History of breast cancer and basal cell carcinoma -Completed palliative radiation to the right breast 10/17/2023 -She is to follow-up as needed on an outpatient basis with radiation oncology -Last saw oncology in the office 10/01/[address] Bolaños at that time # Dementia - Supportive care -Continue home memantine and donepezil #Depression/anxiety -Continue home medications #DVT ppx: SCDs Oksana Fortune MD CODE status: Discussed CODE status at length including difference between FULL code, DNR-CCA, and DNR-CC status. Following discussions about the differences in these status, requested full code. This will need to be revisited after further imaging and clinical status, suspect patient and son may end up being amenable to alternative discussions and CODE STATUS but patient reporting she wants to be full code and son agrees with her wishes at this time, again suspect that this can be discussed further moving forward Charges/Coding Visit Charges Inpatient E&M: 15002 Init Hosp L2
--- OUTSIDE RECORDS SUMMARY | 2024-10-18 20:34 | XMS RPT_ITS | CCD ---
Author Organization [facility] Care Team Providers Care Cullet Crusher And Washer Name Role Phone Unavailable Primary Care Provider Unavailabl e Dr. Russell Shannon DO Primary Care Provider [phone] Dr. Russell Shannon DO Attending Provider Ken [...] Codeine Drug Allergy 6 Other: See Comments [facility] (3 sources) Simvastatin Drug Allergy 2 Other [facility] (1 source) HMG-CoA reductase inhibitor Drug Intolerance 4 Other: See Comments [facility] (1 source) Codeine Drug Allergy 5 [facility] (1 source) Simvastatin Drug Allergy 5 [facility] Medications Current Medications Medication Drug [...] (3 sources) Vitamin B12 Start: 03-10-2021 Vitamin V24-Gsfui Acid 500-400 mcg Tablet Active 1 {tbl} PO DAILY March 10, 2021 1:00am Start: 03-10-2021 take 1 tablet by cielo once daily Vitamin F66-Fxqpx Acid Active 1 TABLET PO DAILY March [...] hydrochloride 5 mg oral tablet (1 source) A-zqpgdx-O-aspartate Receptor Antagonist Start: 09-17-2023 take 1 tablet [...] Mx. Pt has memory loss. ER negative, WI negative, Her2 negative.Discussed locally advanced R breast [...] Auto (Unsp spec) [#/Vol] 0.98 10*3/uL 0.83-4.51 [facility] Absolute neutrophil countOrd ered By: Russell Shannon on 08-07-2024 Neutrophils (Bld) [#/Vol] 5.8 10*3/uL 2.0-7.7 [facility] Anion gap in Serum or Plasma Ordered By: Russell Shannon on 08-07-2024 Anion gap [Moles/Vol] 12 mmol/L 5-15 [facility] Automated lymphocyte count a s percentage of total leukocytesOrdered By: Russell Shannon on 08-07-2024 Lymphocytes/100 WBC Auto (Unsp spec) 12.5 % Low 19-41 [facility] BUN/creatinine ratioOrdered By: Russell Shannon on 08-07-2024 Urea nitrogen/Creatinine [Mass ratio] 22.5 mg/mg High 10-20 [facility] Basophil percentageOrdered B y: Russell Shannon on 08-07-2024 Basophils/100 WBC (Bld) 1.0 % 0-1 [facility] Bilirubin, totalOrdered By: Russell Shannon on 08-07-2024 Bilirubin [Mass/Vol] 0.50 mg/dL 0.00-1.30 [facility] CBC W/Diff, Automatedon 07-13 Absolute Lymph 0.98 X10 3/uL Normal 0.83-4.51 [facility] Comment on above: Performed By: #### L 500.1480, L501.9520, L506.0400, L100.0100 #### [facility] [address] [place], [address] Absolute Neut 5.8 X10 3/uL Normal 2.0-7.7 [facility] Comment on above: Performed By: #### L 500.4050, L501.9520, L506.0400, L100.0100 #### [facility] [address] [place], [address] Basophils/100 WBC (Bld) 1.0 % Normal 0-1 [facility] Comment on above: Performed By: #### L 500.4050, L501.9520, L506.0400, L100.0100 #### [facility] [address] [place], [address] Eosinophils/100 WBC (Bld) 4.3 % Normal 0-5 [facility] Comment on above: Performed By: #### L 500.4050, L501.9520, L506.0400, L100.0100 #### [facility] [address] [place], [address] Erythrocyte distribution width (RBC) [Ratio] 13.4 % Normal 11.6-14.6 [facility] Comment on above: Performed By: #### L 500.4050, L501.9520, L506.0400, L100.0100 #### [facility] [address] [place], [address] Hematocrit (Bld) [Volume fraction] 38.6 % Normal 37-47 [facility] Comment on above: Performed By: #### L 500.4050, L501.9520, L506.0400, L100.0100 #### [facility] [address] [place], [address] Hemoglobin (Bld) [Mass/Vol] 12.1 g/dL Normal 12.0-15.0 [facility] Comment on above: Performed By: #### L 500.4050, L501.9520, L506.0400, L100.0100 #### [facility] [address] [place], [address] IG% 0.400 Normal 0.0-0.9 [facility] Comment on above: Result Comment: IG% - Immature Granulocytes (promyelocytes, myelocytes and metamyelocytes) > 1% indicates that a LEFT SHIFT is Present. Performed By: #### L 500.4050, L501.9520, L506.0400, L100.0100 #### [facility] [address] [place], [address] Lymphocytes/100 WBC (Bld) 12.5 % Low 19-41 [facility] Comment on above: Performed By: #### L 500.4050, L501.9520, L506.0400, L100.0100 #### [facility] [address] [place], [address] MCH (RBC) [Entitic mass] 27.1 pg Normal 27.0-32.0 [facility] Comment on above: Performed By: #### L 500.4050, L501.9520, L506.0400, L100.0100 #### [facility] [address] [place], [address] MCHC (RBC) [Mass/Vol] 31.3 g/dL Low 32-36 [facility] Comment on above: Performed By: #### L 500.4050, L501.9520, L506.0400, L100.0100 #### [facility] [address] [place], [address] MCV (RBC) [Entitic vol] 86.5 fL Normal 81-99 [facility] Comment on above: Performed By: #### L 500.4050, L501.9520, L506.0400, L100.0100 #### [facility] [address] [place], [address] Monocytes/100 WBC (Bld) 8.0 % Normal 0-10 [facility] Comment on above: Performed By: #### L 500.4050, L501.9520, L506.0400, L100.0100 #### [facility] [address] [place], [address] Neutrophils/100 WBC (Bld) 73.8 % High 47-70 [facility] Comment on above: Performed By: #### L 500.4050, L501.9520, L506.0400, L100.0100 #### [facility] [address] [place], [address] Nucleated RBC (Bld) [#/Vol] 0 10*3/uL Normal 0-5 [facility] Comment on above: Performed By: #### L 500.4050, L501.9520, L506.0400, L100.0100 #### [facility] [address] [place], [address] Platelet mean volume (Bld) [Entitic vol] 9.6 fL Normal 6.2-12.0 [facility] Comment on above: Performed By: #### L 500.4050, L501.9520, L506.0400, L100.0100 #### [facility] [address] [place], [address] Platelets (Bld) [#/Vol] 323 10*3/uL Normal 150-450 [facility] Comment on above: Performed By: #### L 500.4050, L501.9520, L506.0400, L100.0100 #### [facility] [address] [place], [address] RBC (Bld) [#/Vol] 4.46 10*6/uL Normal 4.2-5.4 [facility] Comment on above: Performed By: #### L 500.4050, L501.9520, L506.0400, L100.0100 #### [facility] [address] [place], [address] RDW SD 42.4 fl Normal 35.1-43.9 [facility] Comment on above: Performed By: #### L 500.4050, L501.9520, L506.0400, L100.0100 #### [facility] [address] [place], [address] WBC (Bld) [#/Vol] 7.9 10*3/uL Normal 4.4-11.0 [facility] Comment on above: Performed By: #### L 500.4050, L501.9520, L506.0400, L100.0100 #### [facility] [address] [place], [address] Carbon dioxide, total [Moles /volume] in Central venous bloodOrdered By: Russell Shannon on 08-07-2024 CO2 [Moles/Vol] 25.3 mmol/L 21.0-32.0 [facility] Chloride assayOrdered By: Akbar Shannon on 08-07-2024 Chloride [Moles/Vol] 104 mmol/L 98-108 [facility] Comprehensive Metabolic Prof ilon 08-07-2024 Albumin [Mass/Vol] 4.0 g/dL Normal 3.4-4.8 [facility] Comment on above: Performed By: #### L 500.4050, L501.9520, L506.0400, L100.0100 #### [facility] [address] [place], [address] Albumin/Globulin [Mass ratio] 1.3 {ratio} Normal 0.9-2.4 [facility] Comment on above: Performed By: #### L 500.4050, L501.9520, L506.0400, L100.0100 #### [facility] [address] [place], [address] ALK PHOS 84 U/L Normal 35-104 [facility] Comment on above: Performed By: #### L 500.4050, L501.9520, L506.0400, L100.0100 #### [facility] [address] [place], [address] ALT [Catalytic activity/Vol] 26 U/L Normal <=34 [facility] Comment on above: Performed By: #### L 500.4050, L501.9520, L506.0400, L100.0100 #### [facility] [address] [place], [address] AST [Catalytic activity/Vol] 43 U/L High <=31 [facility] Comment on above: Performed By: #### L 500.4050, L501.9520, L506.0400, L100.0100 #### [facility] [address] [place], [address] Bilirubin [Mass/Vol] 0.50 mg/dL Normal 0.00-1.30 [facility] Comment on above: Performed By: #### L 500.4050, L501.9520, L506.0400, L100.0100 #### [facility] [address] [place], [address] BUN/CRE 22.5 RATIO High 10-20 [facility] Comment on above: Performed By: #### L 500.4050, L501.9520, L506.0400, L100.0100 #### [facility] [address] [place], [address] Calcium [Mass/Vol] 10.4 mg/dL Normal 7.6-11.0 [facility] Comment on above: Performed By: #### L 500.4050, L501.9520, L506.0400, L100.0100 #### [facility] [address] [place], [address] Chloride [Moles/Vol] 104 mmol/L Normal 98-108 [facility] Comment on above: Performed By: #### L 500.4050, L501.9520, L506.0400, L100.0100 #### [facility] [address] [place], [address] CO2 [Moles/Vol] 25.3 mmol/L Normal 21.0-32.0 [facility] Comment on above: Performed By: #### L 500.4050, L501.9520, L506.0400, L100.0100 #### [facility] [address] [place], [address] Creatinine [Mass/Vol] 0.98 mg/dL Normal 0.70-1.20 [facility] Comment on above: Performed By: #### L 500.4050, L501.9520, L506.0400, L100.0100 #### [facility] [address] [place], [address] GAP 12 Normal 5-15 [facility] Comment on above: Performed By: #### L 500.4050, L501.9520, L506.0400, L100.0100 #### [facility] [address] [place], [address] GFR/1.73 sq M.predicted among non-blacks MDRD (S/P/Bld) [Vol rate/Area] 58 mL/min/{1.73_m2} Low >60 [facility] Comment on above: Result Comment: mL/m in/1.73m2 CKD-EPI Creatinine Equation (2020) Performed By: #### L 500.4050, L501.9520, L506.0400, L100.0100 #### [facility] [address] [place], [address] Globulin (S) [Mass/Vol] 3.1 g/dL Normal 2.2-4.2 [facility] Comment on above: Performed By: #### L 500.4050, L501.9520, L506.0400, L100.0100 #### [facility] [address] [place], [address] Glucose [Mass/Vol] 89 mg/dL Normal 70-99 [facility] Comment on above: Performed By: #### L 500.4050, L501.9520, L506.0400, L100.0100 #### [facility] [address] [place], [address] Potassium [Moles/Vol] 3.9 mmol/L Normal 3.3-5.1 [facility] Comment on above: Performed By: #### L 500.4050, L501.9520, L506.0400, L100.0100 #### [facility] [address] [place], [address] Sodium [Moles/Vol] 142 mmol/L Normal 133-145 [facility] Comment on above: Performed By: #### L 500.4050, L501.9520, L506.0400, L100.0100 #### [facility] [address] [place], [address] T PROT 7.1 g/dL Normal 5.9-8.4 [facility] Comment on above: Performed By: #### L 500.4050, L501.9520, L506.0400, L100.0100 #### [facility] [address] [place], [address] Urea nitrogen [Mass/Vol] 22 mg/dL High 4-19 [facility] Comment on above: Performed By: #### L 500.4050, L501.9520, L506.0400, L100.0100 #### [facility] [address] [place], [address] Eosinophil percentageOrdered By: Russell Shannon on 08-07-2024 Eosinophils/100 WBC (Bld) 4.3 % 0-5 [facility] Erythrocyte distribution wid th ratioOrdered By: Russell Shannon on 08-07-2024 Erythrocyte distribution width (RBC) [Ratio] 13.4 % 11.6-14.6 [facility] Erythrocyte distribution wid th standard deviationOrdered By: Russell Shannon on 08-07-2024 Erythrocyte distribution width (RBC) [Ratio] 42.4 fl 35.1-43.9 [facility] Glomerular filtration rate ( GFR) estimation/1.73 sq m using serum, plasma, or whole bOrdered By: Russell Shannon on 08-07-2024 GFR/1.73 sq M.predicted among non-blacks MDRD (S/P/Bld) [Vol rate/Area] 58 mL/min/{1.73_m2} Low >60 [facility] Comment on above: mL/min/1.73m2 CKD-EP I Creatinine Equation (2020) Hematocrit Auto (Bld) [Volum e fraction]Ordered By: Russell Shannon on 08-07-2024 Hematocrit (Bld) [Volume fraction] 38.6 % 37-47 [facility] Hemoglobin measurementOrdere d By: Russell Shannon on 08-07-2024 Hemoglobin (Bld) [Mass/Vol] 12.1 g/dL 12.0-15.0 [facility] Immature granulocytes/100 WB C Auto (Bld)Ordered By: Russell Shannon on 08-07-2024 Immature granulocytes/100 WBC (Bld) 0.400 % 0.0-0.9 [facility] Comment on above: IG% - Immature Granu locytes (promyelocytes, myelocytes and metamyelocytes) > 1% indicates that a LEFT SHIFT is Present. Laboratory - Chemistry and C hemistry - challengeOrdered By: Russell Shannon on 08-07-2024 AST [Catalytic activity/Vol] 43 U/L High <32 [facility] MCV (mean corpuscular volume ) determinationOrdered By: Russell Shannon on 08-07-2024 MCV (RBC) [Entitic vol] 86.5 fL 81-99 [facility] Mean corpuscular hemoglobin (MCH) determinationOrdered By: Russell Shannon 08-07-2024 MCH (RBC) [Entitic mass] 27.1 pg 27.0-32.0 [facility] Mean corpuscular hemoglobin concentration (MCHC) determinationOrdered By: Russell Shannon on 08-07-2024 MCHC (RBC) [Mass/Vol] 31.3 g/dL Low 32-36 [facility] Mean platelet volume determi nationOrdered By: Russell Shannon on 08-07-2024 Platelet mean volume (Bld) [Entitic vol] 9.6 fL 6.2-12.0 [facility] Monocyte percentageOrdered B y: Russell Shannon on 08-07-2024 Monocytes/100 WBC (Bld) 8.0 % 0-10 [facility] Neutrophil percentageOrdered By: Russell Shannon on 08-07-2024 Neutrophils/100 WBC (Bld) 73.8 % High 47-70 [facility] Nucleated red blood cell per centageOrdered By: Russell Shannon on 08-07-2024 Nucleated RBC/100 WBC (Bld) [Ratio] 0 % 0-5 [facility] Platelet countOrdered By: Akbar Shannon on 08-07-2024 Platelets (Bld) [#/Vol] 323 10*3/uL 150-450 [facility] Potassium measurement (mass/ volume)Ordered By: Russell Shannon on 08-07-2024 Potassium (Unsp spec) [Mass/Vol] 3.9 mmol/L 3.3-5.1 [facility] RBC Auto (Bld) [#/Vol]Ordere d By: Russell Shannon on 08-07-2024 RBC (Bld) [#/Vol] 4.46 10*6/uL 4.2-5.4 [facility] Serum creatinine measurement (mass/volume)Ordered By: Russell Shannon on 08-07-2024 Creatinine [Mass/Vol] 0.98 mg/dL 0.70-1.20 [facility] Serum globulin measurementOr dered By: Russell Shannon on 08-07-2024 Globulin (S) [Mass/Vol] 3.1 g/dL 2.2-4.2 [facility] Serum glucose measurement (m ass/volume)Ordered By: Russell Shannon on 08-07-2024 Glucose [Mass/Vol] 89 mg/dL 70-99 [facility] Serum or plasma alanine jordan otransferase (ALT) measurementOrdered By: Russell Shannon on 08-07-2024 ALT [Catalytic activity/Vol] 26 U/L <35 [facility] Serum or plasma albumin shon urement (mass/volume)Ordered By: Russell Shannon on 08-07-2024 Albumin [Mass/Vol] 4.0 g/dL 3.4-4.8 [facility] Serum or plasma albumin/glob ulin mass ratioOrdered By: Russell Shannon on 08-07-2024 Albumin/Globulin [Mass ratio] 1.3 {ratio} 0.9-2.4 [facility] Serum or plasma alkaline anival sphatase measurementOrdered By: Russell Shannon on 08-07-2024 ALP [Catalytic activity/Vol] 84 U/L 35-104 [facility] Serum or plasma calcium shon urement (mass/volume)Ordered By: Russell Shannon on 08-07-2024 Calcium [Mass/Vol] 10.4 mg/dL 7.6-11.0 [facility] Serum or plasma urea nitroge n measurement (mass/volume)Ordered By: Russell Shannon on 08-07-2024 Urea nitrogen [Mass/Vol] 22 mg/dL High 4-19 [facility] Sodium levelOrdered By: Russell Shannon on 08-07-2024 Sodium [Moles/Vol] 142 mmol/L 133-145 [facility] T4 Free Directon 08-07-2024 T4 FREE DIRECT 1.60 ng/dL High 0.76-1.46 [facility] Comment on above: Performed By: #### L 500.4050, L501.9520, L506.0400, L100.0100 #### [facility] [address] [place], [address] T4 freeOrdered By: Russell lino on 08-07-2024 Free T4 [Mass/Vol] 1.60 ng/dL High 0.76-1.46 [facility] TSH DL <= 0.005 mIU/L QnOrde red By: Russell Shannon on 08-07-2024 TSH Qn 5.620 uIU/mL High 0.300-4.200 [facility] Thyroid Stim Hormone (TSH)on 08-07-2024 TSH 5.620 uIU/mL High 0.300-4.200 [facility] Comment on above: Performed By: #### L 500.4050, L501.9520, L506.0400, L100.0100 #### [facility] [address] [place], [address] Total proteinOrdered By: Ellie Shannon on 08-07-2024 Protein [Mass/Vol] 7.1 g/dL 5.9-8.4 [facility] White blood cell (WBC) count Ordered By: Russell Shannon on 08-07-2024 WBC (Bld) [#/Vol] 7.9 10*3/uL 4.4-11.0 [facility] Radiation Oncology Visiton 0 02-13-2024 Radiation Oncology Visit [facility] [address] 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 [...] breast consist (more content not included)... Normal [facility] 12 Lead [place] 12-31-2023 [address] [facility] Cardiovascular Services [address] [place] [address] 12 Lead [facility] 12/31/23 0618 MR#: [id number] Acct: [id number] Name: SHAGUFTA GUTIERREZ Rep #: [id number] : 1945 78 From: Vladislav Mendez MD [...] Left ventricular hypertrophy with QRS widening ( Ovid product , Romhilt-Rodriguez ) Cannot rule out Septal infarct , age undetermined Abnormal ECG Confirmed by VLADISLAV MENDEZ MD ([id number]), rewrite editor SHANNON MONSALVE ([id number]) on 12/31/2023 1:54:17 PM Referred By: Confirmed By: VLADISLAV MENDEZ MD 12/31/23 1354 Date Vladislav Mendez MD CC: Dr. Russell Shannon DO; Dr. Vincent Brumfield DO Signed Normal [facility] Brain/Head without Contrasto n 12-31-2023 Brain/Head without Contrast [facility] Imaging Services [address] [place], [place] [address] Brain/Head without Contrast MR#: [id number] Acct: [id number] Name: SHAGUFTA GUTIERREZ Rep #: [id number] : 1945 F 78 From: Cristi abdalla MD PCP: Dr. Russell Shannon DO Status: REG ER Study: Brain/Head without Contrast Date of Exam: 12/12 11/04 Exam# [id number] Ordering Dr: Vincent Brumfield DO [id number] EXAM: CT HEAD WITHOUT INTRAVENOUS CONTRAST CLINICAL [...] Electronically Signed: Cristi Stewart MD at 7:25 [facility] , CC: Dr. Russell Shannon, DO; Dr. Vincent Brumfield, DO Piece Hand: Signed Normal [facility] CBC-Complete Blood Cnt No Di ffon 12-31-2023 Erythrocyte distribution width (RBC) [Ratio] 13.4 % Normal 11.6-14.6 [facility] Comment on above: Performed By: #### L 500.4050, L100.0500, L501.4020 #### [facility] [address] [place], [address] Hematocrit (Bld) [Volume fraction] 39.4 % Normal 37-47 [facility] Comment on above: Performed By: #### L 500.4050, L100.0500, L501.4020 #### [facility] [address] [place], [address] Hemoglobin (Bld) [Mass/Vol] 12.7 g/dL Normal 12.0-15.0 [facility] Comment on above: Performed By: #### L 500.4050, L100.0500, L501.4020 #### [facility] [address] [place], [address] MCH (RBC) [Entitic mass] 28.8 pg Normal 27.0-32.0 [facility] Comment on above: Performed By: #### L 500.4050, L100.0500, L501.4020 #### [facility] [address] [place], [address] MCHC (RBC) [Mass/Vol] 32.2 g/dL Normal 32-36 [facility] Comment on above: Performed By: #### L 500.4050, L100.0500, L501.4020 #### [facility] [address] [place], [address] MCV (RBC) [Entitic vol] 89.3 fL Normal 81-99 [facility] Comment on above: Performed By: #### L 500.4050, L100.0500, L501.4020 #### [facility] [address] [place], [address] Platelet mean volume (Bld) [Entitic vol] 9.7 fL Normal 6.2-12.0 [facility] Comment on above: Performed By: #### L 500.4050, L100.0500, L501.4020 #### [facility] [address] [place], [address] Platelets (Bld) [#/Vol] 244 10*3/uL Normal 150-450 [facility] Comment on above: Performed By: #### L 500.4050, L100.0500, L501.4020 #### [facility] [address] [place], [address] RBC (Bld) [#/Vol] 4.41 10*6/uL Normal 4.2-5.4 [facility] Comment on above: Performed By: #### L 500.4050, L100.0500, L501.4020 #### [facility] [address] [place], [address] RDW SD 44.1 fl High 35.1-43.9 [facility] Comment on above: Performed By: #### L 500.4050, L100.0500, L501.4020 #### [facility] [address] [place], [address] WBC (Bld) [#/Vol] 10.0 10*3/uL Normal 4.4-11.0 [facility] Comment on above: Performed By: #### L 500.4050, L100.0500, L501.4020 #### [facility] [address] [place], [address] Chest 1 View (Portable)on Chest 1 View (Portable) [facility] Imaging Services [address] [place] [address] Chest 1 View (Portable) MR#: [id number] Acct: [id number] Name: SHAGUFTA GUTIERREZ Rep #: [id number] : 1945 F 78 From: Cristi abdalla MD PCP: Dr. Russell Shannon, DO Status: [facility] ER Study: Chest 1 View (Portable) Date of Exam: 12/31/23 Exam# [id number] Ordering Dr: Vincent Brumfield DO [id number] EXAM: XR CHEST, 1 VIEW CLINICAL INDICATION: [...] Russell Shannon, ; Dr. Vincent Brumfield DO Piece Hand: Signed Normal [facility] Comprehensive Metabolic Prof hion 12-31-2023 Albumin [Mass/Vol] 3.3 g/dL Normal 3.2-5.0 [facility] Comment on above: Order Comment: 'TROP ' Serial specimen #1, #2 or #3: 1 Performed By: #### L 500.4050, L100.0500, L501.4020 #### [facility] [address] [place], [address] Albumin/Globulin [Mass ratio] 0.9 {ratio} Normal 0.9-2.4 [facility] Comment on above: Order Comment: 'TROP ' Serial specimen #1, #2 or #3: 1 Performed By: #### L 500.4050, L100.0500, L501.4020 #### [facility] [address] [place], [address] ALK P 99 U/L Normal 45-117 [facility] Comment on above: Order Comment: 'TROP ' Serial specimen #1, #2 or #3: 1 Performed By: #### L 500.4050, L100.0500, L501.4020 #### [facility] [address] [place], [address] ALT [Catalytic activity/Vol] 24 U/L Normal 13-56 [facility] Comment on above: Order Comment: 'TROP ' Serial specimen #1, #2 or #3: 1 Performed By: #### L 500.4050, L100.0500, L501.4020 #### [facility] [address] [place], [address] AST [Catalytic activity/Vol] 26 U/L Normal 15-37 [facility] Comment on above: Order Comment: 'TROP ' Serial specimen #1, #2 or #3: 1 Performed By: #### L 500.4050, L100.0500, L501.4020 #### [facility] [address] [place], [address] Bilirubin [Mass/Vol] 0.50 mg/dL Normal 0.20-1.00 [facility] Comment on above: Order Comment: 'TROP ' Serial specimen #1, #2 or #3: 1 Result Comment: For patients on eltrombopag therapy, use of Dimension [place] TBIL is not recommended. Performed By: #### L 500.4050, L100.0500, L501.4020 #### [facility] [address] [place], [address] BUN/CRE 20.6 RATIO High 10-20 [facility] Comment on above: Order Comment: 'TROP ' Serial specimen #1, #2 or #3: 1 Performed By: #### L 500.4050, L100.0500, L501.4020 #### [facility] [address] [place], [address] CA,Total 9.4 mg/dL Normal 8.5-10.1 [facility] Comment on above: Order Comment: 'TROP ' Serial specimen #1, #2 or #3: 1 Performed By: #### L 500.4050, L100.0500, L501.4020 #### [facility] [address] [place], [address] Chloride [Moles/Vol] 109 mmol/L High 98-107 [facility] Comment on above: Order Comment: 'TROP ' Serial specimen #1, #2 or #3: 1 Performed By: #### L 500.4050, L100.0500, L501.4020 #### [facility] [address] [place], [address] CO2 [Moles/Vol] 31.0 mmol/L Normal 21.0-32.0 [facility] Comment on above: Order Comment: 'TROP ' Serial specimen #1, #2 or #3: 1 Performed By: #### L 500.4050, L100.0500, L501.4020 #### [facility] [address] [place], [address] Creatinine [Mass/Vol] 1.02 mg/dL Normal 0.55-1.02 [facility] Comment on above: Order Comment: 'TROP ' Serial specimen #1, #2 or #3: 1 Result Comment: The validity of the calculated GFR GFRAA in patients over 70 years has not been determined. Clinical correlation is essential. Performed By: #### L 500.4050, L100.0500, L501.4020 #### [facility] [address] [place], [address] ECRCL 29.17 ml/min Normal [facility] Comment on above: Order Comment: 'TROP ' Serial specimen #1, #2 or #3: 1 Performed By: #### L 500.4050, L100.0500, L501.4020 #### [facility] [address] [place], [address] EST GFR - AA 67 mL/min Normal >60 [facility] Comment on above: Order Comment: 'TROP ' Serial specimen #1, #2 or #3: 1 Result Comment: Afri can [place] GFR Calc Performed By: #### L 500.4050, L100.0500, L501.4020 #### [facility] [address] [place], [address] GAP 3 Low 5-15 [facility] Comment on above: Order Comment: 'TROP ' Serial specimen #1, #2 or #3: 1 Performed By: #### L 500.4050, L100.0500, L501.4020 #### [facility] [address] [place], [address] GFR/1.73 sq M.predicted among non-blacks MDRD (S/P/Bld) [Vol rate/Area] 55 mL/min/{1.73_m2} Low >60 [facility] Comment on above: Order Comment: 'TROP ' Serial specimen #1, #2 or #3: 1 Result Comment: Non- GFR Calc Performed By: #### L 500.4050, L100.0500, L501.4020 #### [facility] [address] [place], [address] Globulin (S) [Mass/Vol] 3.5 g/dL Normal 2.2-4.2 [facility] Comment on above: Order Comment: 'TROP ' Serial specimen #1, #2 or #3: 1 Performed By: #### L 500.4050, L100.0500, L501.4020 #### [facility] [address] [place], [address] Glucose [Mass/Vol] 124 mg/dL High 74-106 [facility] Comment on above: Order Comment: 'TROP ' Serial specimen #1, #2 or #3: 1 Result Comment: Fast ing Glucose result from 100 to 125 mg/dL suggests IMPAIRED HOMEOSTASIS per A.D.A. criteria. Performed By: #### L 500.4050, L100.0500, L501.4020 #### [facility] [address] [place], [address] Potassium [Moles/Vol] 3.7 mmol/L Normal 3.5-5.1 [facility] Comment on above: Order Comment: 'TROP ' Serial specimen #1, #2 or #3: 1 Performed By: #### L 500.4050, L100.0500, L501.4020 #### [facility] [address] [place], [address] Sodium [Moles/Vol] 143 mmol/L Normal 136-145 [facility] Comment on above: Order Comment: 'TROP ' Serial specimen #1, #2 or #3: 1 Performed By: #### L 500.4050, L100.0500, L501.4020 #### [facility] [address] [place], [address] T PROT 6.8 g/dL Normal 6.4-8.2 [facility] Comment on above: Order Comment: 'TROP ' Serial specimen #1, #2 or #3: 1 Performed By: #### L 500.4050, L100.0500, L501.4020 #### [facility] [address] [place], [address] Urea nitrogen [Mass/Vol] 21 mg/dL High 7-18 [facility] Comment on above: Order Comment: 'TROP ' Serial specimen #1, #2 or #3: 1 Performed By: #### L 500.4050, L100.0500, L501.4020 #### [facility] [address] [place], [address] Emergency Department Summary on 12-31-2023 Emergency Department Summary [facility] Medical Records Department [address] [place] [address] Emergency Department Summary 12/31/23 MR#: [id number] Acct: [id number] Name: SHAGUFTA GUTIERREZ Rep #: [id number] : 1945 78 From: Vincent Brumfield DO PCP: Dr. Russell Shannon, DO Status:DEP ER Location: ED [facility] History of Present Illness Chief Complaint: Confusion PFSH [facility] Medical History Basal cell carcinoma of [...] Oxygen Delivery Method Room Air Room Air [facility] Narrative Medical decision making narrative: HISTORY OF [...] x 3 (more content not included)... Normal [facility] L501.4020on 12-31-2023 TROPONIN-I HS 14 pg/mL Normal 3.0-54.0 [facility] Comment on above: Order Comment: 'TROP ' Serial specimen #1, #2 or #3: 1 Result Comment: Mnedel saldana Note: New Test Units and Gender Specific Reference Ranges. For more information see Policy Stat Procedure [place] High Sensitivity Troponin (TNIH) and attachments. Performed By: #### L 500.4050, L100.0500, L501.4020 #### [facility] [address] [place], [address] Urinalysis, Completeon 12-30 AMORPHOUS 3+ PHOS Normal [facility] Comment on above: Order Comment: RADHA CTOR TO SPECIFY Performed By: #### L 400.0001 #### [facility] [address] [place], [address] WBC 5-10 SEEN Normal 0-5 [facility] Comment on above: Order Comment: RADHA CTOR TO SPECIFY Performed By: #### L 400.0001 #### [facility] [address] [place], [address] BILIRUBIN URINE Negative Normal Negative [facility] Comment on above: Order Comment: RADHA CTOR TO SPECIFY Performed By: #### L 400.0001 #### [facility] [address] [place], [address] Clarity (U) Cloudy Normal Clear [facility] Comment on above: Order Comment: RADHA CTOR TO SPECIFY Performed By: #### L 400.0001 #### [facility] [address] [place], [address] Color (U) Yellow Normal Yellow [facility] Comment on above: Order Comment: RADHA CTOR TO SPECIFY Performed By: #### L 400.0001 #### [facility] [address] [place], [address] GLUCOSE, UR Normal Normal Normal [facility] Comment on above: Order Comment: RADHA CTOR TO SPECIFY Performed By: #### L 400.0001 #### [facility] [address] [place], [address] KETONE UR Negative Normal Negative [facility] Comment on above: Order Comment: RADHA CTOR TO SPECIFY Performed By: #### L 400.0001 #### [facility] [address] [place], [address] LEUK ESTERASE 500 /ul Abnormal Negative [facility] Comment on above: Order Comment: RADHA CTOR TO SPECIFY Performed By: #### L 400.0001 #### [facility] [address] [place], [address] Nitrite Ql (U) Negative Normal Negative [facility] Comment on above: Order Comment: RADHA CTOR TO SPECIFY Performed By: #### L 400.0001 #### [facility] [address] [place], [facility] OCCULT BLOOD-UR 25 /ul Abnormal Negative [facility] Comment on above: Order Comment: RADHA CTOR TO SPECIFY Performed By: #### L 400.0001 #### [facility] [address] [place], [address] pH UR 7.0 Normal 5.0 - 8.0 [facility] Comment on above: Order Comment: RADHA CTOR TO SPECIFY Performed By: #### L 400.0001 #### [facility] [address] [place], [address] PROT DIPSTX 30 mg/dl Abnormal Negative [facility] Comment on above: Order Comment: RADHA CTOR TO SPECIFY Performed By: #### L 400.0001 #### [facility] [address] [place], [address] SP.GR. DIPSTX 1.010 Normal 1.002-1.030 [facility] Comment on above: Order Comment: RADHA CTOR TO SPECIFY Performed By: #### L 400.0001 #### [facility] [address] [place], [address] UROBILI Normal Normal Normal [facility] Comment on above: Order Comment: RADHA CTOR TO SPECIFY Performed By: #### L 400.0001 #### [facility] [address] [place], [address] BACTERIA 0 SEEN Normal None Seen [facility] Comment on above: Order Comment: RADHA CTOR TO SPECIFY Performed By: #### L 400.0001 #### [facility] [address] [place], [address] EPI,SQUAMOUS 0 SEEN Normal 5-10 [facility] Comment on above: Order Comment: RADHA CTOR TO SPECIFY Performed By: #### L 400.0001 #### [facility] [address] [place], [address] Mucus Ql (Urine sed) 0 SEEN Normal [facility] Comment on above: Order Comment: RADHA CTOR TO SPECIFY Performed By: #### L 400.0001 #### [facility] [address] [place], [address] RBC 0 SEEN Normal 0-5 [facility] Comment on above: Order Comment: RADHA CTOR TO SPECIFY Performed By: #### L 400.0001 #### [facility] [address] [place], [address] Radiation Oncology Visiton 1 Radiation Oncology Visit [facility] [address] 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 10/17/2023: received palliative radiation therapy to the right breast consisting of 2600 cGy with a simultaneous boost to the gross disease of 3000 cGy all delivered in 5 fractions. She was treated in the supine position with a 3D conformal treatment plan. Radiation Treatment History: 1) From 10/10/2023 ??? 9/ (more content not included)... 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 [facility] will maintain follow up with all other [...] this patient. Sincerely, Ken Law DO, MS Manager Care Management, Department of Radiation Oncology [facility] 10/17/23 0876 Date Ken Nicolas Signature: Date (if applicable) CC: Dr. Xavi Whitten MD; Dr. Russell Shnanon DO; Dr. Priyanka Cook MD [facility] Radiation Oncology Visiton 0 10-16-2023 Radiation Oncology Visit [facility] [address] [place] [address] OFFICE VISIT Date of Service: 10/16/23 1323 MR#: [id number] Acct: [id number] Name: SHAGUFTA GUTIERREZ Rep #: [id number] : 1945 From: Ken Law DO Age/Sex: 78/F Location: [facility] Status: Signed Intake Vital Signs 10/01/23 11:07 [...] cN0 Mx) grade 2 IDC (ER 0%, WI 0%, Her2 1-2+ IHC) of the right [...] treatment a (more content not included)... Normal [facility] Oncology Visit Reporton 09-12 Oncology Visit Report [facility] [address] [place] [address] OFFICE VISIT Date of Service: 10/01/23 1059 MR#: [id number] Acct: [id number] Name: SHAGUFTA GUTIERREZ Rep #: [id number] : 1945 From: Sachin Bolaños MD Age/Sex: 78/F Location: [facility] Status: Signed HPI Subjective Date of Service 10/01/23 Chief Complaint Referred for R breast cancer and ulcer. History of Present Illness 78-year-old woman with dementia presented with right breast mass with ulceration. Mammogram on 09/13/2023 showed right breast mass with calcifications. She saw Dr. Cook on 09/17/2023 core biopsy was done. [facility] Medical History Basal cell carcinoma of [...] Const aler (more content not included)... Normal [facility] Radiation Oncology Visiton 0 09-26-2023 Radiation Oncology Visit [facility] [place] [address] OFFICE VISIT Date of Service: 09/26/23 1102 MR#: [id number] Acct: [id number] Name: SHAGUFTA GUTIERREZ Rep #: [id number] : 1945 From: Ken Law DO Age/Sex: 78/F Location: [facility] Status: Signed Intake Vital Signs 09/17/23 13:07 [...] cN0 Mx) grade 2 IDC (ER 0%, WI 0%, Her2 1-2+ IHC) of the right [...] consistent with grade 2 IDC (ER 0%, WI 0%, Her2 1-2+ IHC) Radiation Treatment History: [...] bleeding occasi (more content not included)... Normal [facility] ER (initial)on 09-17-2023 ER (initial) -- ---- Patient Age/Sex Location Account Attending Physician ---- SHAGUFTA GUTIERREZ 78/F LABSPEC [id number] Dr. Priyanka Cook MD ---- Specimen: [id number] Received: 09/19/23 Status: KENTON Mcadams Num: [id number] Spec Type: IMMUNO Subm Dr: Dr. Priyanka Cook MD PHYSICIAN INSTITUTION [place] [address] SPECIMEN INFORMATION: Tissue Source: Right breast mass Clinical Info: Right breast mass Specimen Number: [id number] CPT code: 60911,26949w6,44120h6 METHODOLOGY: Deparaffinized sections of prefer/formalin-fixed tissue or PAP/DQ stained slides are incubated with monoclonal/polyclonal antibodies/oligonucleo tide probes. Localization is made via biotin free immunoperoxidase method. Appropriate controls are performed and reacted as expected. Results on target cell population are indicated in the following table: RESULTS: ANTIBODY / CLONE RESULT P53 (DO-7) negative, null pattern Ki-67 (30-9) positive, 85% CK8 (00gdwqU00) positive CK5-6 (D5 1684) positive, focal Calponin-1 (AA183E) negative P40 (BC28) negative E-Cad (ECH-6) positive MOC-31 (4561) positive Factor VIII (R Ag) negative CD31 (MICHAEL/70A) negative MORPHOMETRIC ANALYSIS ER (clone 6F11) 0% WI (clone 16/1E2) 0% Her-2Neu (clone CB11) 2+ [...] Attending Physician ---- SHAGUFTA GUTIERREZ 78/F LABSPEC [id number] Dr. Priyanka Cook MD ---- RESULTS: (Continued) [...] Factor Receptor 2 Testing in Breast Cancer: [place] Society of Clinical Oncology / College of [place] Pathologists Clinical Practice Guideline Update. J Clin Oncol 31:1936-0479, 2013. The prognostic test for HER2 is performed on formalin-fixed paraffin embedded tissue. A 3+ (positive) staining pattern is defined as intense, homogeneous, complete, circumferential membranous staining in >10% of contiguous tumor cells. A similar weak (2+) staining pattern is interpreted as equivocal. NATALIA follow-up testing is recommended for all equivocal cases. Positivity/negativity for ER/WI is reported if > or < 1% of the tumor cells are immuno- reactive, respectively. The ASCO/CAP criteria is used for scoring. Reference: Journal of Clinical Oncology, 2013; 31:1838-7105 2010; 16:8725-6854. Ischemic time: Less than one hour. Duration [...] developed and their performance characteristics determined by [facility]. They may not have been cleared or approved by the U.S. Food and Drug Administration. The FDA has determined that such clearance or approval is not necessary. The above immunohistochemical/du alISH markers are ordered and reviewed by the Pathologist. The test for HER 2 is performed on formalin-fixed paraffin embedded tissue using the CB11 mouse monoclonal antibody (Cell [place]annado). A 3+ staining pattern is interpreted as positive and is defined as a strong membranous staining involving the entire cell membrane in over 30% of invasive tumor cells. A similar weak s (more content not included)... Normal [facility] Comment on above: Performed By: #### P ER #### [facility] [place], [address] Surgery Specimen Level Pablo 09-17-2023 Surgery Specimen Level IV ---- Patient Age/Sex Location Account Attending Physician ---- SHAGUFTA GUTIERREZ 78/F LABSPEC [id number] Dr. Priyanka Cook MD ---- Specimen: [id number] Received: 09/17/23 Status: KENTON Pema Num: [id number] Spec Type: BREAST BX Subm Dr: Dr. [...] Findings: Mild chronic inflammation Breast Marker Study: [id number] ER: 0% WI: 0% Her2:Equivocal (1-2+) Ki67: 85% Her2 Dual NATALIA: Not Amplified/Negative The above summary is in compliance with College of [place] Pathology (CAP) Cancer Protocols Checklist and [place] Joint Committee on Cancer (AJCC), Staging Manual, 8th Ed. Case has been reviewed in consultation with Dr. Gross who concurs with the above diagnosis. IDC:SJ ---- Patient Age/Sex Location Account Attending Physician ---- SHAGUFTA GUTIERREZ 78/F LABSPEC [id number] Dr. Priyanka Cook MD ---- MICROSCOPIC DESCRIPTION Slides are reviewed. GROSS DESCRIPTION Received in fixative is one container labeled with the patient's name and designated Right breast mass. The specimen consists of two elongated fragments of julian-yellow fibroadipose tissue measuring in aggregate 1.5 x 0.2 x 0.1cm. The entire specimen is submitted in one cassette. ALEC/ 09/18/2023 TC:0 CPT:96788 ---- Patient Age/Sex Location Account Attending Physician ---- SHAGUFTA GUTIERREZ 78/F LABSPEC [id number] Dr. Priyanka Cook MD ---- Signed (signature on file) Dr. Maximiliano Taylor, 09/24/23 1333 ---- Normal [facility] Comment on above: Performed By: #### P SUIV #### [facility] [address] [place], [place], [address] Surgery Visit Reporton 09-16 Surgery Visit Report [facility] [address] [place] [address] OFFICE VISIT Date of Service: 09/17/23 MR#: [id number] Acct: [id number] Name: SHAGUFTA GUTIERREZ Rep #: [id number] : 1945 Provider: Dr. Priyanka perez MD Age/Sex: 78/F Location: [facility] Status: Signed Intake Vital Signs 03/13/21 11:23 [...] the past year?: No PFSH Medical History Anxiety Arthritis Basal cell carcinoma of scalp [...] HPI HPI: 78-year-old female presents with her ltkwbrii-qk-qyu due to right breast mass and abnormal mammogram. Patient does have past medical history for dementia unable to really tell us when she started to notice this. Oteyfjdy-nx-bxl states that she was wincing when getting [...] cooperative, healthy appearing and no acute distress [facility] Head: normal to inspection Chest Other: Breast inspection: Large firm fungating right breast mass with open wound below the nipple with oozing Right breas (more content not included)... Normal [facility] 09-16-2023 [facility] Telephone ([place]) SHAGUFTA GUTIERREZ ([id number]) 1945 F Date Time Provider Department 09/16/23 OSWALD BAXTER During your visit today, we recorded the following information about you: Danika Ford LPN 09/16/2023 3:03 PM Addendum New pt. Referral from Dr. Shannon, Right Breast with open bleeding lesion in 8o'clock position entire breast hard to touch with multiple raised lesions covering it. Left message on voicemail at [facility] needing to know if and when pt [...] to Follow up with Dr. Law @ [facility]. TAYLOR Sow Melanie, LPN 09/19/2023 5:01 PM Signed PSS- patient will still need an appointment with medical oncology. Please contact patient to make sure she is aware and offer her a new patient appointment here if she is not already set up with medical oncology at [facility]. TALYOR Puga Stephanie 09/20/2023 8:41 AM Signed Left message for patient to return call. When she calls, please offer to scheduel with Dr. Baxter/Asmita as she will still need to see Medical Oncology. (Patient will be doing Rad/Onc at [facility]). Madelyn Mobley 09/23/2023 8:36 AM Signed Spoke to patient and scheduled as directed. Shell Duran 09/23/2023 8:38 AM Signed The son Alcides called back to cancel as patient is being seen at [facility] but does not know provider name. Rosalina De L aCruz LPN 09/23/2023 8:53 AM Signed Again, patient [...] 14 - Other: See Comments Comments: palpitations PVRERDX-XHQ-[id number] REDUCTASE INHIBIT*10/08/2013 14 - Other: See Comments [...] Status:Closed by MADELYN VALDEZ on 09/23/23 Normal [facility] DIAG MAMM W/CAD, BILATon DIAG MAMM W/CAD, BILAT [facility] Imaging Services [address] [place], [place] [id number] DIAG MAMM W/CAD, BILAT MR#: [id number] Acct: [id number] Name: SHAGUFTA GUTIERREZ Rep #: [id number] : 1945 F 78 From: Jean-Claude ventura MD PCP: Dr. Russell Shannon, DO Status: REG CL Study: DIAG MAMM W/CAD, BILAT Date of Exam: 09/13/23 Exam# [id number] Ordering Dr: Jyotsna Baldwin FUR TANNER-C [id number] MAMMOGRAPHY - BILATERAL SCREENING REASON FOR EXAM: [...] delay biopsy of a clinically suspicious abnormality. [id number] Electronically Signed: Jean-Claude Najera MD at 10:13 EDT , CC: ALHAJI Baldwin; Dr. Russell Shannon, Piece Hand: Signed Normal [facility] - Chemistry and C hemistry - challengeOrdered By: Russell Shannon on 09-25-2022 Free T4 [Mass/Vol] 1.31 ng/dL 0.76-1.46 [facility] No Panel InformationOrdered By: Russell Shannon on 09-25-2022 Ionized Calcium 5.38 mg/dL 4.36-5.20 [facility] Parathyroid Hormone (Intact) 65.0 pg/mL 18.4-80.1 [facility] Thyroid Stimulating Hormone (TSH) 9.04 uIU/mL 0.358-3.74 [facility] Vitamin D 25-Hydroxy 34.3 ng/mL [facility] Comment on above: Vitamin D 25(OH) Sta tus Range Deficiency <20 ng/mL (50nmol/L) Insufficiency 20 - 30 ng/mL (50 - 75 nmol/L) Sufficiency 30 - 100 ng/mL (75 - 250 nmol/L) Toxicity >100 ng/mL (>250 nmol/L) Serum or plasma calcitriol m easurement (mass/volume)Ordered By: Russell Shannon on 09-25-2022 1,25-dihydroxyvitamin D3 [Mass/Vol] 53.1 pg/mL 24.8-81.5 [facility] Comment on above: Performed at: [address] [id number] Director: Jacqui Peters MD, Phone: [phone] Absolute lymphocyte countOrd ered By: Russell Shannon on 08-28-2022 Lymphocytes Auto (Unsp spec) [#/Vol] 1.36 10*3/uL 0.83-4.51 [facility] Basophil percentageOrdered B y: Russell Shannon on 08-28-2022 Basophils/100 WBC (Bld) 0.9 % 0-1 [facility] Bilirubin [Mass/Vol] 0.50 mg/dL 0.20-1.00 [facility] Comment on above: For patients on eltr ombopag therapy, use of Dimension [place] TBIL is not recommended. Chloride [Moles/Vol] 105 mmol/L 98-107 [facility] Eosinophils/100 WBC (Bld) 3.8 % 0-5 [facility] Glucose [Mass/Vol] 99 mg/dL 74-106 [facility] LDH [Catalytic activity/Vol] 257 U/L 84-246 [facility] Neutrophils (Bld) [#/Vol] 4.3 10*3/uL 2.0-7.7 [facility] Neutrophils/100 WBC (Bld) 66.5 % 47-70 [facility] Potassium [Moles/Vol] 3.7 mmol/L 3.5-5.1 [facility] Protein [Mass/Vol] 7.6 g/dL 6.4-8.2 [facility] Sodium [Moles/Vol] 141 mmol/L 136-145 [facility] WBC (Bld) [#/Vol] 6.5 10*3/uL 4.4-11.0 [facility] Blood erythrocytes count (nu mber/volume)Ordered By: Russell Shannon on 08-28-2022 RBC (Bld) [#/Vol] 4.75 10*6/uL 4.2-5.4 [facility] Blood hemoglobin measurement (mass/volume)Ordered By: Russell Shannon on 08-28-2022 Hemoglobin (Bld) [Mass/Vol] 13.7 g/dL 12.0-15.0 [facility] Blood lymphocytes/100 leukoc ytesOrdered By: Russell Shannon on 08-28-2022 Lymphocytes/100 WBC (Bld) 20.9 % 19-41 [facility] Blood monocytes/100 leukocyt esOrdered By: Russell Shannon on 08-28-2022 Monocytes/100 WBC (Bld) 7.7 % 0-10 [facility] Blood platelet mean volumeOr dered By: Russell Shannon on 08-28-2022 Platelet mean volume (Bld) [Entitic vol] 10.2 fL 6.2-12.0 [facility] Determination of erythrocyte mean corpuscular volume (MCV)Ordered By: Russell Shannon on 08-28-2022 MCV (RBC) [Entitic vol] 90.5 fL 81-99 [facility] Hematocrit Auto (Bld) [Volum e fraction]Ordered By: Russell Shannon on 08-28-2022 Hematocrit (Bld) [Volume fraction] 43.0 % 37-47 [facility] Iron measurement (mass/mass) Ordered By: Russell Shannon on 08-28-2022 Iron (Unsp spec) [Mass/Mass] 48 ug/dL 50-170 [facility] Laboratory - Chemistry and C hemistry - challengeOrdered By: Russell Shannon on 08-28-2022 ALP [Catalytic activity/Vol] 85 U/L 45-117 [facility] ALT [Catalytic activity/Vol] 34 U/L 13-56 [facility] CO2 [Moles/Vol] 30.0 mmol/L 21.0-32.0 [facility] Cobalamin (Vitamin B12) [Mass/Vol] 723 pg/mL 211-911 [facility] Free T4 [Mass/Vol] 1.38 ng/dL 0.76-1.46 [facility] Globulin (S) [Mass/Vol] 3.6 g/dL 2.2-4.2 [facility] Urea nitrogen/Creatinine [Mass ratio] 22.4 mg/mg 10-20 [facility] Laboratory - Hematology and Cell countsOrdered By: Russell Shannon on 08-28-2022 Erythrocyte distribution width (RBC) [Entitic vol] 42.6 fL 35.1-43.9 [facility] Erythrocyte distribution width (RBC) [Ratio] 12.9 % 11.6-14.6 [facility] Immature granulocytes/100 WBC (Bld) 0.200 % 0.0-0.9 [facility] Comment on above: IG% - Immature Granu locytes (promyelocytes, myelocytes and metamyelocytes) > 1% indicates that a LEFT SHIFT is Present. MCH (RBC) [Entitic mass] 28.8 pg 27.0-32.0 [facility] Nucleated RBC/100 WBC (Bld) [Ratio] 0 % 0-5 [facility] MCHC Auto (RBC) [Mass/Vol]Or dered By: Russell Shannon on 08-28-2022 MCHC (RBC) [Mass/Vol] 31.9 g/dL 32-36 [facility] No Panel InformationOrdered By: Russell Shannon on 08-28-2022 Estimated GFR (MDRD) Amer 64 mL/min >60 [facility] Comment on above: GFR Calc Estimated GFR (MDRD) Non-Af Amer 53 mL/min >60 [facility] Comment on above: Non- GFR Calc Thyroid Stimulating Hormone (TSH) 10.20 uIU/mL 0.358-3.74 [facility] Platelets bldOrdered By: Ellie Shannon on 08-28-2022 Platelets (Bld) [#/Vol] 275 10*3/uL 150-450 [facility] Serum or plasma albumin shon urement (mass/volume)Ordered By: Russell Shannon on 08-28-2022 Albumin [Mass/Vol] 4.0 g/dL 3.2-5.0 [facility] Serum or plasma albumin/glob ulin mass ratioOrdered By: Russell Shannon on 08-28-2022 Albumin/Globulin [Mass ratio] 1.1 {ratio} 0.9-2.4 [facility] Serum or plasma calcium shon urement (mass/volume)Ordered By: Russell Shannon on 08-28-2022 Calcium [Mass/Vol] 10.4 mg/dL 8.5-10.1 [facility] Serum or plasma creatinine m easurement (mass/volume)Ordered By: Russell Shannon on 08-28-2022 Creatinine [Mass/Vol] 1.07 mg/dL 0.55-1.02 [facility] Comment on above: The validity of the calculated GFR & GFRAA in patients over 70 years has not been determined. Clinical correlation is essential. Serum or plasma ferritin [place] surement (mass/volume)Ordered By: Russell Shannon on 08-28-2022 Ferritin [Mass/Vol] 81 ng/mL 8252 [facility] Serum or plasma transthyreti n measurement (mass/volume)Ordered By: Russell Shannon on 08-28-2022 Prealbumin [Mass/Vol] 25.5 mg/dL 20.0-40.0 [facility] Serum or plasma urea nitroge n measurement (mass/volume)Ordered By: Russell Shannon on 08-28-2022 Urea nitrogen [Mass/Vol] 24 mg/dL 7-18 [facility] Thin prep Papanicolaou smear with manual screeningOrdered By: Russell Shannon on 08-28-2022 Thin prep Papanicolaou smear with manual screening 36 U/L 15-37 [facility] Thin prep Papanicolaou smear with manual screening 6 5-15 [facility] Encounters Encounter Date Encounter Type Care Provider Facility Start: 08-07-2024 End: 08-07-[address] Russell Shannon DO Work Phone: -[facility]atory [facility] Start: 08-07-2024 End: 08-07-[address] Russell Shannon DO -[facility] Start: 08-07-2024 End: 08-07-2024 ambulatory [facility] Facility:[facility] Start: 02-13-2024 End: 02-13-2024 ambulatory [facility] Start: 12-31-2023 End: 12-31-2023 Emergency department patient visit [facility] Facility:[facility] Start: 11-14-2023 End: 11-14-2023 ambulatory [facility] Facility:[facility] Start: 10-17-2023 ambulatory [facility] Facility: [facility] Start: 10-16-2023 End: 10-16-2023 ambulatory [facility] Facility:[facility] Start: 10-10-2023 ambulatory [facility]: [facility] Start: 10-09-2023 ambulatory [facility]: [facility] Start: 10-02-2023 ambulatory [facility]: [facility] Start: 10-01-2023 End: 10-01-2023 ambulatory [facility] Facility:[facility] Start: 09-26-2023 End: 09-26-2023 ambulatory [facility] Start: 09-17-2023 End: 09-17-2023 ambulatory [facility] Facility:[facility] Start: 09-17-2023 End: 09-17-2023 ambulatory [facility] Facility:[facility] Start: 09-16-2023 Telephone encounter Oswald guardado DO Work Phone: Hematology/Oncology Start: 09-13-2023 End: 09-13-2023 ambulatory [facility] Facility:[facility] Start: 09-25-2022 End: 09-25-2022 ambulatory [facility] Work Phone: Start: 09-25-2022 End: 09-25-2022 Patient encounter procedure [facility], [facility] Start: 08-28-2022 End: 08-28-2022 ambulatory [facility] Work Phone: Start: 08-28-2022 End: 08-28-2022 Patient encounter procedure [facility] Procedures Date Procedure Procedure Detail Performing Clinician H/O: surgery History of basal cell carcinoma excision Comment on above: Excision 2 cm ulcera vince basal cell carcinoma left frontal scalp with FTSG reconstruction from bilateral necks (14 cm2) - 03/13/21 Plan of Treatment Date Care Activity Detail Author Start: 10-13-2023 Influenza vaccination Influenza Vaccine (#1) [facility] Start: 02-11-2023 Advance Directive Discussion Advance Directive Discussion [facility] Start: 10-12-2022 Covid-19 Vaccine ( season) Covid-19 Vaccine ( season) [facility] Start: 09-25-2022 Procedure [facility] Start: 2008 Pneumococcal Vaccine: 65+ (1 of 1 - PCV) Pneumococcal Vaccine: 65+ (1 of 1 - PCV) [facility] Start: 2008 Screening for osteoporosis Bone Density Screening [facility] Start: 2003 RSV Vaccine (1 - 1-dose 60+ series) RSV Vaccine (1 - 1-dose 60+ series) [facility] Start: 1993 Shingrix Vaccine (1 of 2) Shingrix Vaccine (1 of 2) [facility] Start: 1988 Diabetes Screening Diabetes Screening [facility] Start: 1962 Urine microalbumin profile DTaP,Tdap,Td Vaccine (1 - Tdap) [facility] Start: 1961 Anxiety Screening Anxiety Screening [facility] Start: 1961 Depression Screening Depression Screening [facility] Immunizations Immunization Date Immunization Notes Care Provider Fa cility 05-20-2020 Covid (Pfizer) [facility] 04-29-2020 Covid (Pfizer) [facility] 03-11-2019 tetanus toxoid, redu flaquita diphtheria toxoid, and acellular pertussis vaccine, adsorbed [facility] 02-11-2010 pneumococcal vaccine , unspecified formulation [facility] Payers Date Payer Category Payer Self-pay [id number] 2013 Medicare HUMANA MEDICARE HUMANA MEDICARE PFFS [id number] 2013-Present [phone] [address] [address] [place] [address] Indemnity [id number] 2012 Private Health Insurance [id number] 2008 Medicare [id number] Unknown [id number]. 2.462 Unknown [id number]. 2.462 Unknown [id number] [id number]. 2.462 Unknown [id number] [id number]. 2.462 Unknown [id number] [id number]. 2.462 Unknown [id number] [id number]. 2.462 Unknown [id number] [id number]. 2.462 Unknown [id number] [id number]. 2.462 Unknown [id number] [id number]. 2.462 Unknown [id number] 2.16.840.1.142917.3.579. 2.462 Unknown [id number] [id number]. 2.462 Unknown [id number] [id number]. 2.462 Unknown [id number] [id number]. 2.462 Unknown [id number] [id number]. 2.462 Unknown [id number]. 2.462 Social History Date Type Detail Facility Start: [facility] Start: 06-06-2013 None [facility] Start: 06-06-2013 Alone [facility] Start: 1945 Sex Assigned At Female [facility] Start: 10-08-2013 End: 12-31-2023 Tobacco smoking status NHIS Ex-smoker [facility] History of tobacco use Current smoker [facility] History of tobacco use Cigarette Smoker [facility] Start: 12-08-2013 Alcohol intake Current drinke r of alcohol (finding) [facility] Start: 1945 Sex Assigned At Not on file [facility] Gender identity Not on file [facility] inic Clinical Notes 09-16-2023 to 09-23-2023 Telephone [...] I will try again later Zahira Lee [facility] 09-23-2023 Miscellaneous Notes Formattin g of this [...] cancel as patient is being seen at [facility] but does not know provider name. Spoke to patient and scheduled as directed. Madelyn Valdez Left message for patient to return call. When she calls, please offer to scheduel with Dr. Baxter/Asmita as she will still need to see Medical Oncology. (Patient will be doing Rad/Onc at [facility]). Shaista Johns PSS- patient will still need an appointment with medical oncology. Please contact patient to make sure she is aware and offer her a new patient appointment here if she is not already set up with medical oncology at [facility]. Rosalina De La Cruz LPN Olesya from DR. Mcconnell office contacted us stating Pt. Is going to Follow up with Dr. Law @ [facility]. Danika Ford LPN New pt. Referral [...] Danika Ford LPN documented in this encounter [facility] 09-23-2023 Telephone encount er Note Again, patient is only scheduled with Dr. Law (radiation oncology), I verified in their system. She will need to see medical oncology as stated below. Rosalina De La Cruz LPN [facility] 09-23-2023 Telephone encount er Note The son Alcides called back to cancel as patient is being seen at [facility] but does not know provider name. [facility] 09-23-2023 Telephone encount er Note Spoke to patient and scheduled as directed. Madelyn Valdez [facility] 09-20-2023 Telephone encount er Note Left message for patient to return call. When she calls, please offer to scheduel with Dr. Baxter/Asmita as she will still need to see Medical Oncology. (Patient will be doing Rad/Onc at [facility]). Shaista Johns [facility] 09-19-2023 Telephone encount er Note PSS- patient will still need an appointment with medical oncology. Please contact patient to make sure she is aware and offer her a new patient appointment here if she is not already set up with medical oncology at [facility]. Rosalina De La Cruz LPN [facility] 09-17-2023 Telephone encount er Note Olesya from DR. Mcconnell office contacted us stating Pt. Is going to Follow up with Dr. Law @ [facility]. Danika Ford LPN [facility] 09-16-2023 Telephone encount er Note New pt. Referral from Dr. Shannon, Right Breast with open bleeding lesion in 8o'clock position entire breast hard to touch with multiple raised lesions covering it. Left message on voicemail at [facility] needing to know if and when pt is scheduled for Biopsy or surgery. Pt. Scheduled to see Dr. Cook tomorrow 09/16 , they are planning on doing BX, Olesya office nurse will call again tomorrow with future plans. Also left message on pts. voicemail Danika Ford LPN [facility] Evaluation note No assessment inform ation available [facility] Work Phone: Reason for referral (narrative) No reaso n for referral information available [facility] Work Phone: Advance Directives No Advanced Directives Records Found Advance Directive Response Recorded Date/ Time Advance Directives Yes November 19, 2013 1:13pm Living Will Yes March 10 3:35pm Power of Equity Manager Yes March 10, 2021 3:35pm Advance Directive [...] or prosecute any alcohol or drug abuse patient.[facility] INFORMATION SOURCE (unrecogn ized section and content) DATE CREATED AUTHOR 09/26/2023 [facility] DATE CREATED AUTHOR KIM LOPEZ 08/14/2024 [facility] FOR RECORDS PERTAINING TO PATIENTS WHO ARE [...] BE BASED ON THE PRIMARY CLINICAL RECORDS. [employer] provides no warranty or guarantee of the accuracy or completeness of information in this document."
--- OUTSIDE RECORDS SUMMARY | 2024-10-18 20:35 | XMS RPT_ITS | CCD ---
Author Organization [facility] Care Team Providers [facility] Orderly Name Role Phone Unavailable Primary Care Provider Unavailabl e Dr. Russlel Shannon DO Primary Care Provider [phone] Dr. Russell Shannon DO Attending Provider Ken [...] Codeine Drug Allergy 6 Other: See Comments [facility] (3 sources) Simvastatin Drug Allergy 2 Other [facility] (1 source) HMG-CoA reductase inhibitor Drug Intolerance 4 Other: See Comments [facility] (1 source) Codeine Drug Allergy 5 [facility] (1 source) Simvastatin Drug Allergy 5 [facility] Medications Current Medications Medication Drug [...] (3 sources) Vitamin B12 Start: 03-10-2021 Vitamin X01-Grvpi Acid 500-400 mcg Tablet Active 1 {tbl} PO DAILY March 10, 2021 1:00am Start: 03-10-2021 take 1 tablet by cielo once daily Vitamin P69-Xzbdl Acid Active 1 TABLET PO DAILY March [...] hydrochloride 5 mg oral tablet (1 source) A-txxoql-U-aspartate Receptor Antagonist Start: 09-17-2023 take 1 tablet [...] Mx. Pt has memory loss. ER negative, [place] negative, Her2 negative.Discussed locally advanced R breast [...] Auto (Unsp spec) [#/Vol] 0.98 10*3/uL 0.83-4.51 [facility] Absolute neutrophil countOrd ered By: Russell Shannon on 08-07-2024 Neutrophils (Bld) [#/Vol] 5.8 10*3/uL 2.0-7.7 [facility] Anion gap in Serum or Plasma Ordered By: Russell Shannon on 08-07-2024 Anion gap [Moles/Vol] 12 mmol/L 5-15 [facility] Automated lymphocyte count a s percentage of total leukocytesOrdered By: Russell Shannon on 08-07-2024 Lymphocytes/100 WBC Auto (Unsp spec) 12.5 % Low 19-41 [facility] BUN/creatinine ratioOrdered By: Russell Shannon on 08-07-2024 Urea nitrogen/Creatinine [Mass ratio] 22.5 mg/mg High 10-20 [facility] Basophil percentageOrdered B y: Russell Shannon on 08-07-2024 Basophils/100 WBC (Bld) 1.0 % 0-1 [facility] Bilirubin, totalOrdered By: Russell Shannon on 08-07-2024 Bilirubin [Mass/Vol] 0.50 mg/dL 0.00-1.30 [facility] CBC W/Diff, Automatedon 07-13 Absolute Lymph 0.98 X10 3/uL Normal 0.83-4.51 [facility] Comment on above: Performed By: #### L 500.8370, L501.9520, L506.0400, L100.0100 #### [facility] [address] [place], [address] Absolute Neut 5.8 X10 3/uL Normal 2.0-7.7 [facility] Comment on above: Performed By: #### L 500.4050, L501.9520, L506.0400, L100.0100 #### [facility] [address] [place], [address] Basophils/100 WBC (Bld) 1.0 % Normal 0-1 [facility] Comment on above: Performed By: #### L 500.4050, L501.9520, L506.0400, L100.0100 #### [facility] [address] [place], [address] Eosinophils/100 WBC (Bld) 4.3 % Normal 0-5 [facility] Comment on above: Performed By: #### L 500.4050, L501.9520, L506.0400, L100.0100 #### [facility] [address] [place], [address] Erythrocyte distribution width (RBC) [Ratio] 13.4 % Normal 11.6-14.6 [facility] Comment on above: Performed By: #### L 500.4050, L501.9520, L506.0400, L100.0100 #### [facility] [address] [place], [address] Hematocrit (Bld) [Volume fraction] 38.6 % Normal 37-47 [facility] Comment on above: Performed By: #### L 500.4050, L501.9520, L506.0400, L100.0100 #### [facility] [address] [place], [address] Hemoglobin (Bld) [Mass/Vol] 12.1 g/dL Normal 12.0-15.0 [facility] Comment on above: Performed By: #### L 500.4050, L501.9520, L506.0400, L100.0100 #### [facility] [address] [place], [address] IG% 0.400 Normal 0.0-0.9 [facility] Comment on above: Result Comment: IG% - Immature Granulocytes (promyelocytes, myelocytes and metamyelocytes) > 1% indicates that a LEFT SHIFT is Present. Performed By: #### L 500.4050, L501.9520, L506.0400, L100.0100 #### [facility] [address] [place], [address] Lymphocytes/100 WBC (Bld) 12.5 % Low 19-41 [facility] Comment on above: Performed By: #### L 500.4050, L501.9520, L506.0400, L100.0100 #### [facility] [address] [place], [address] MCH (RBC) [Entitic mass] 27.1 pg Normal 27.0-32.0 [facility] Comment on above: Performed By: #### L 500.4050, L501.9520, L506.0400, L100.0100 #### [facility] [address] [place], [address] MCHC (RBC) [Mass/Vol] 31.3 g/dL Low 32-36 [facility] Comment on above: Performed By: #### L 500.4050, L501.9520, L506.0400, L100.0100 #### [facility] [address] [place], [address] MCV (RBC) [Entitic vol] 86.5 fL Normal 81-99 [facility] Comment on above: Performed By: #### L 500.4050, L501.9520, L506.0400, L100.0100 #### [facility] [address] [place], [address] Monocytes/100 WBC (Bld) 8.0 % Normal 0-10 [facility] Comment on above: Performed By: #### L 500.4050, L501.9520, L506.0400, L100.0100 #### [facility] [address] [place], [address] Neutrophils/100 WBC (Bld) 73.8 % High 47-70 [facility] Comment on above: Performed By: #### L 500.4050, L501.9520, L506.0400, L100.0100 #### [facility] [address] [place], [address] Nucleated RBC (Bld) [#/Vol] 0 10*3/uL Normal 0-5 [facility] Comment on above: Performed By: #### L 500.4050, L501.9520, L506.0400, L100.0100 #### [facility] [address] [place], [address] Platelet mean volume (Bld) [Entitic vol] 9.6 fL Normal 6.2-12.0 [facility] Comment on above: Performed By: #### L 500.4050, L501.9520, L506.0400, L100.0100 #### [facility] [address] [place], [address] Platelets (Bld) [#/Vol] 323 10*3/uL Normal 150-450 [facility] Comment on above: Performed By: #### L 500.4050, L501.9520, L506.0400, L100.0100 #### [facility] [address] [place], [address] RBC (Bld) [#/Vol] 4.46 10*6/uL Normal 4.2-5.4 [facility] Comment on above: Performed By: #### L 500.4050, L501.9520, L506.0400, L100.0100 #### [facility] [address] [place], [address] RDW SD 42.4 fl Normal 35.1-43.9 [facility] Comment on above: Performed By: #### L 500.4050, L501.9520, L506.0400, L100.0100 #### [facility] [address] [place], [address] WBC (Bld) [#/Vol] 7.9 10*3/uL Normal 4.4-11.0 [facility] Comment on above: Performed By: #### L 500.4050, L501.9520, L506.0400, L100.0100 #### [facility] [address] [place], [address] Carbon dioxide, total [Moles /volume] in Central venous bloodOrdered By: Russell Shannon on 08-07-2024 CO2 [Moles/Vol] 25.3 mmol/L 21.0-32.0 [facility] Chloride assayOrdered By: Akbar Shannon on 08-07-2024 Chloride [Moles/Vol] 104 mmol/L 98-108 [facility] Comprehensive Metabolic Prof ilon 08-07-2024 Albumin [Mass/Vol] 4.0 g/dL Normal 3.4-4.8 [facility] Comment on above: Performed By: #### L 500.4050, L501.9520, L506.0400, L100.0100 #### [facility] [address] [place], [address] Albumin/Globulin [Mass ratio] 1.3 {ratio} Normal 0.9-2.4 [facility] Comment on above: Performed By: #### L 500.4050, L501.9520, L506.0400, L100.0100 #### [facility] [address] [place], [address] ALK PHOS 84 U/L Normal 35-104 [facility] Comment on above: Performed By: #### L 500.4050, L501.9520, L506.0400, L100.0100 #### [facility] [address] [place], [address] ALT [Catalytic activity/Vol] 26 U/L Normal <=34 [facility] Comment on above: Performed By: #### L 500.4050, L501.9520, L506.0400, L100.0100 #### [facility] [address] [place], [address] AST [Catalytic activity/Vol] 43 U/L High <=31 [facility] Comment on above: Performed By: #### L 500.4050, L501.9520, L506.0400, L100.0100 #### [facility] [address] [place], [address] Bilirubin [Mass/Vol] 0.50 mg/dL Normal 0.00-1.30 [facility] Comment on above: Performed By: #### L 500.4050, L501.9520, L506.0400, L100.0100 #### [facility] [address] [place], [address] BUN/CRE 22.5 RATIO High 10-20 [facility] Comment on above: Performed By: #### L 500.4050, L501.9520, L506.0400, L100.0100 #### [facility] [address] [place], [address] Calcium [Mass/Vol] 10.4 mg/dL Normal 7.6-11.0 [facility] Comment on above: Performed By: #### L 500.4050, L501.9520, L506.0400, L100.0100 #### [facility] [address] [place], [address] Chloride [Moles/Vol] 104 mmol/L Normal 98-108 [facility] Comment on above: Performed By: #### L 500.4050, L501.9520, L506.0400, L100.0100 #### [facility] [address] [place], [address] CO2 [Moles/Vol] 25.3 mmol/L Normal 21.0-32.0 [facility] Comment on above: Performed By: #### L 500.4050, L501.9520, L506.0400, L100.0100 #### [facility] [address] [place], [address] Creatinine [Mass/Vol] 0.98 mg/dL Normal 0.70-1.20 [facility] Comment on above: Performed By: #### L 500.4050, L501.9520, L506.0400, L100.0100 #### [facility] [address] [place], [address] GAP 12 Normal 5-15 [facility] Comment on above: Performed By: #### L 500.4050, L501.9520, L506.0400, L100.0100 #### [facility] [address] [place], [address] GFR/1.73 sq M.predicted among non-blacks MDRD (S/P/Bld) [Vol rate/Area] 58 mL/min/{1.73_m2} Low >60 [facility] Comment on above: Result Comment: mL/m in/1.73m2 CKD-EPI Creatinine Equation (2020) Performed By: #### L 500.4050, L501.9520, L506.0400, L100.0100 #### [facility] [address] [place], [address] Globulin (S) [Mass/Vol] 3.1 g/dL Normal 2.2-4.2 [facility] Comment on above: Performed By: #### L 500.4050, L501.9520, L506.0400, L100.0100 #### [facility] [address] [place], [address] Glucose [Mass/Vol] 89 mg/dL Normal 70-99 [facility] Comment on above: Performed By: #### L 500.4050, L501.9520, L506.0400, L100.0100 #### [facility] [address] [place], [address] Potassium [Moles/Vol] 3.9 mmol/L Normal 3.3-5.1 [facility] Comment on above: Performed By: #### L 500.4050, L501.9520, L506.0400, L100.0100 #### [facility] [address] [place], [address] Sodium [Moles/Vol] 142 mmol/L Normal 133-145 [facility] Comment on above: Performed By: #### L 500.4050, L501.9520, L506.0400, L100.0100 #### [facility] [address] [place], [address] T PROT 7.1 g/dL Normal 5.9-8.4 [facility] Comment on above: Performed By: #### L 500.4050, L501.9520, L506.0400, L100.0100 #### [facility] [address] [place], [address] Urea nitrogen [Mass/Vol] 22 mg/dL High 4-19 [facility] Comment on above: Performed By: #### L 500.4050, L501.9520, L506.0400, L100.0100 #### [facility] [address] [place], [address] Eosinophil percentageOrdered By: Russell Shannon on 08-07-2024 Eosinophils/100 WBC (Bld) 4.3 % 0-5 [facility] Erythrocyte distribution wid th ratioOrdered By: Russell Shannon on 08-07-2024 Erythrocyte distribution width (RBC) [Ratio] 13.4 % 11.6-14.6 [facility] Erythrocyte distribution wid th standard deviationOrdered By: Russell Shannon on 08-07-2024 Erythrocyte distribution width (RBC) [Ratio] 42.4 fl 35.1-43.9 [facility] Glomerular filtration rate ( GFR) estimation/1.73 sq m using serum, plasma, or whole bOrdered By: Russell Shannon on 08-07-2024 GFR/1.73 sq M.predicted among non-blacks MDRD (S/P/Bld) [Vol rate/Area] 58 mL/min/{1.73_m2} Low >60 [facility] Comment on above: mL/min/1.73m2 CKD-EP I Creatinine Equation (2020) Hematocrit Auto (Bld) [Volum e fraction]Ordered By: Russell Shannon on 08-07-2024 Hematocrit (Bld) [Volume fraction] 38.6 % 37-47 [facility] Hemoglobin measurementOrdere d By: Russell Shannon on 08-07-2024 Hemoglobin (Bld) [Mass/Vol] 12.1 g/dL 12.0-15.0 [facility] Immature granulocytes/100 WB C Auto (Bld)Ordered By: Russell Shannon on 08-07-2024 Immature granulocytes/100 WBC (Bld) 0.400 % 0.0-0.9 [facility] Comment on above: IG% - Immature Granu locytes (promyelocytes, myelocytes and metamyelocytes) > 1% indicates that a LEFT SHIFT is Present. Laboratory - Chemistry and C hemistry - challengeOrdered By: Russell Shannon on 08-07-2024 AST [Catalytic activity/Vol] 43 U/L High <32 [facility] MCV (mean corpuscular volume ) determinationOrdered By: Russell Shannon on 08-07-2024 MCV (RBC) [Entitic vol] 86.5 fL 81-99 [facility] Mean corpuscular hemoglobin (MCH) determinationOrdered By: Russell Shannon 08-07-2024 MCH (RBC) [Entitic mass] 27.1 pg 27.0-32.0 [facility] Mean corpuscular hemoglobin concentration (MCHC) determinationOrdered By: Russell Shannon on 08-07-2024 MCHC (RBC) [Mass/Vol] 31.3 g/dL Low 32-36 [facility] Mean platelet volume determi nationOrdered By: Russell Shannon on 08-07-2024 Platelet mean volume (Bld) [Entitic vol] 9.6 fL 6.2-12.0 [facility] Monocyte percentageOrdered B y: Russell Shannon on 08-07-2024 Monocytes/100 WBC (Bld) 8.0 % 0-10 [facility] Neutrophil percentageOrdered By: Russell Shannon on 08-07-2024 Neutrophils/100 WBC (Bld) 73.8 % High 47-70 [facility] Nucleated red blood cell per centageOrdered By: Russell Shannon on 08-07-2024 Nucleated RBC/100 WBC (Bld) [Ratio] 0 % 0-5 [facility] Platelet countOrdered By: Akbar Shannon on 08-07-2024 Platelets (Bld) [#/Vol] 323 10*3/uL 150-450 [facility] Potassium measurement (mass/ volume)Ordered By: Russell Shannon on 08-07-2024 Potassium (Unsp spec) [Mass/Vol] 3.9 mmol/L 3.3-5.1 [facility] RBC Auto (Bld) [#/Vol]Ordere d By: Russell Shannon on 08-07-2024 RBC (Bld) [#/Vol] 4.46 10*6/uL 4.2-5.4 [facility] Serum creatinine measurement (mass/volume)Ordered By: Russell Shannon on 08-07-2024 Creatinine [Mass/Vol] 0.98 mg/dL 0.70-1.20 [facility] Serum globulin measurementOr dered By: Russell Shannon on 08-07-2024 Globulin (S) [Mass/Vol] 3.1 g/dL 2.2-4.2 [facility] Serum glucose measurement (m ass/volume)Ordered By: Russell Shannon on 08-07-2024 Glucose [Mass/Vol] 89 mg/dL 70-99 [facility] Serum or plasma alanine jordan otransferase (ALT) measurementOrdered By: Russell Shannon on 08-07-2024 ALT [Catalytic activity/Vol] 26 U/L <35 [facility] Serum or plasma albumin shon urement (mass/volume)Ordered By: Russell Shannon on 08-07-2024 Albumin [Mass/Vol] 4.0 g/dL 3.4-4.8 [facility] Serum or plasma albumin/glob ulin mass ratioOrdered By: Russell Shannon on 08-07-2024 Albumin/Globulin [Mass ratio] 1.3 {ratio} 0.9-2.4 [facility] Serum or plasma alkaline anival sphatase measurementOrdered By: Russell Shannon on 08-07-2024 ALP [Catalytic activity/Vol] 84 U/L 35-104 [facility] Serum or plasma calcium shon urement (mass/volume)Ordered By: Russell Shannon on 08-07-2024 Calcium [Mass/Vol] 10.4 mg/dL 7.6-11.0 [facility] Serum or plasma urea nitroge n measurement (mass/volume)Ordered By: Russell Shannon on 08-07-2024 Urea nitrogen [Mass/Vol] 22 mg/dL High 4-19 [facility] Sodium levelOrdered By: Russell Shannon on 08-07-2024 Sodium [Moles/Vol] 142 mmol/L 133-145 [facility] T4 Free Directon 08-07-2024 T4 FREE DIRECT 1.60 ng/dL High 0.76-1.46 [facility] Comment on above: Performed By: #### L 500.4050, L501.9520, L506.0400, L100.0100 #### [facility] [address] [place], [address] T4 freeOrdered By: Russell lino on 08-07-2024 Free T4 [Mass/Vol] 1.60 ng/dL High 0.76-1.46 [facility] TSH DL <= 0.005 mIU/L QnOrde red By: Russell Shannon on 08-07-2024 TSH Qn 5.620 uIU/mL High 0.300-4.200 [facility] Thyroid Stim Hormone (TSH)on 08-07-2024 TSH 5.620 uIU/mL High 0.300-4.200 [facility] Comment on above: Performed By: #### L 500.4050, L501.9520, L506.0400, L100.0100 #### [facility] [address] [place], [address] Total proteinOrdered By: Ellie Shannon on 08-07-2024 Protein [Mass/Vol] 7.1 g/dL 5.9-8.4 [facility] White blood cell (WBC) count Ordered By: Russell Shannon on 08-07-2024 WBC (Bld) [#/Vol] 7.9 10*3/uL 4.4-11.0 [facility] Radiation Oncology Visiton 0 02-13-2024 Radiation Oncology Visit [facility] [address] 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 [...] breast consist (more content not included)... Normal [facility] 12 Lead [place] 12-31-2023 12 Lead [facility] Cardiovascular Services [address] [place] [address] 12 Lead [facility] 12/31/23 0618 MR#: [id number] Acct: [id number] Name: SHAGUFTA GUTIERREZ Rep #: [id number] : 1945 78 From: Vladislav Mendez MD [...] Left ventricular hypertrophy with QRS widening ( Almo product , Romhilt-Rodriguez ) Cannot rule out Septal infarct , age undetermined Abnormal ECG Confirmed by VLADISLAV MENDEZ MD ([id number]), movie editor SHANNON MONSALVE ([id number]) on 12/31/2023 1:54:17 PM Referred By: Confirmed By: VLADISLAV MENDEZ MD 12/31/23 1354 Date Vladislav Mendez MD CC: Dr. Russell Shannon DO; Dr. Vincent Brumfield DO Signed Normal [facility] Brain/Head without Contrasto n 12-31-2023 Brain/Head without Contrast [facility] Imaging Services [address] [place], [place] [address] Brain/Head without Contrast MR#: [id number] Acct: [id number] Name: SHAGUFTA GUTIERREZ Rep #: [id number] : 1945 F 78 From: Cristi abdalla MD PCP: Dr. Russell Shannon DO Status: REG ER Study: Brain/Head without Contrast Date of Exam: 12/12 11/04 Exam# [id number] Ordering Dr: Vincent Brumfield DO [id number] EXAM: CT HEAD WITHOUT INTRAVENOUS CONTRAST CLINICAL [...] Electronically Signed: Cristi Stewart MD at 7:25 [facility] , CC: Dr. Russell Shannon, DO; Dr. Vincent Brumfield, DO Cloth Finishing Range Operator: Signed Normal [facility] CBC-Complete Blood Cnt No Di ffon 12-31-2023 Erythrocyte distribution width (RBC) [Ratio] 13.4 % Normal 11.6-14.6 [facility] Comment on above: Performed By: #### L 500.4050, L100.0500, L501.4020 #### [facility] [address] [place], [address] Hematocrit (Bld) [Volume fraction] 39.4 % Normal 37-47 [facility] Comment on above: Performed By: #### L 500.4050, L100.0500, L501.4020 #### [facility] [address] [place], [address] Hemoglobin (Bld) [Mass/Vol] 12.7 g/dL Normal 12.0-15.0 [facility] Comment on above: Performed By: #### L 500.4050, L100.0500, L501.4020 #### [facility] [address] [place], [address] MCH (RBC) [Entitic mass] 28.8 pg Normal 27.0-32.0 [facility] Comment on above: Performed By: #### L 500.4050, L100.0500, L501.4020 #### [facility] [address] [place], [address] MCHC (RBC) [Mass/Vol] 32.2 g/dL Normal 32-36 [facility] Comment on above: Performed By: #### L 500.4050, L100.0500, L501.4020 #### [facility] [address] [place], [address] MCV (RBC) [Entitic vol] 89.3 fL Normal 81-99 [facility] Comment on above: Performed By: #### L 500.4050, L100.0500, L501.4020 #### [facility] [address] [place], [address] Platelet mean volume (Bld) [Entitic vol] 9.7 fL Normal 6.2-12.0 [facility] Comment on above: Performed By: #### L 500.4050, L100.0500, L501.4020 #### [facility] [address] [place], [address] Platelets (Bld) [#/Vol] 244 10*3/uL Normal 150-450 [facility] Comment on above: Performed By: #### L 500.4050, L100.0500, L501.4020 #### [facility] [address] [place], [address] RBC (Bld) [#/Vol] 4.41 10*6/uL Normal 4.2-5.4 [facility] Comment on above: Performed By: #### L 500.4050, L100.0500, L501.4020 #### [facility] [address] [place], [address] RDW SD 44.1 fl High 35.1-43.9 [facility] Comment on above: Performed By: #### L 500.4050, L100.0500, L501.4020 #### [facility] [address] [place], [address] WBC (Bld) [#/Vol] 10.0 10*3/uL Normal 4.4-11.0 [facility] Comment on above: Performed By: #### L 500.4050, L100.0500, L501.4020 #### [facility] [address] [place], [address] Chest 1 View (Portable)on Chest 1 View (Portable) [facility] Imaging Services [address] [place] [address] Chest 1 View (Portable) MR#: [id number] Acct: [id number] Name: SHAGUFTA GUTIERREZ Rep #: [id number] : 1945 F 78 From: Cristi abdalla MD PCP: Dr. Russell Shannon, DO Status: [facility] ER Study: Chest 1 View (Portable) Date of Exam: 12/31/23 Exam# [id number] Ordering Dr: Vincent Brumfield DO [id number] EXAM: XR CHEST, 1 VIEW CLINICAL INDICATION: [...] Russell Shannon, ; Dr. Vincent Brumfield DO Cloth Finishing Range Operator: Signed Normal [facility] Comprehensive Metabolic Prof njon 12-31-2023 Albumin [Mass/Vol] 3.3 g/dL Normal 3.2-5.0 [facility] Comment on above: Order Comment: 'TROP ' Serial specimen #1, #2 or #3: 1 Performed By: #### L 500.4050, L100.0500, L501.4020 #### [facility] [address] [place], [address] Albumin/Globulin [Mass ratio] 0.9 {ratio} Normal 0.9-2.4 [facility] Comment on above: Order Comment: 'TROP ' Serial specimen #1, #2 or #3: 1 Performed By: #### L 500.4050, L100.0500, L501.4020 #### [facility] [address] [place], [address] ALK P 99 U/L Normal 45-117 [facility] Comment on above: Order Comment: 'TROP ' Serial specimen #1, #2 or #3: 1 Performed By: #### L 500.4050, L100.0500, L501.4020 #### [facility] [address] [place], [address] ALT [Catalytic activity/Vol] 24 U/L Normal 13-56 [facility] Comment on above: Order Comment: 'TROP ' Serial specimen #1, #2 or #3: 1 Performed By: #### L 500.4050, L100.0500, L501.4020 #### [facility] [address] [place], [address] AST [Catalytic activity/Vol] 26 U/L Normal 15-37 [facility] Comment on above: Order Comment: 'TROP ' Serial specimen #1, #2 or #3: 1 Performed By: #### L 500.4050, L100.0500, L501.4020 #### [facility] [address] [place], [address] Bilirubin [Mass/Vol] 0.50 mg/dL Normal 0.20-1.00 [facility] Comment on above: Order Comment: 'TROP ' Serial specimen #1, #2 or #3: 1 Result Comment: For patients on eltrombopag therapy, use of Dimension [place] TBIL is not recommended. Performed By: #### L 500.4050, L100.0500, L501.4020 #### [facility] [address] [place], [address] BUN/CRE 20.6 RATIO High 10-20 [facility] Comment on above: Order Comment: 'TROP ' Serial specimen #1, #2 or #3: 1 Performed By: #### L 500.4050, L100.0500, L501.4020 #### [facility] [address] [place], [address] CA,Total 9.4 mg/dL Normal 8.5-10.1 [facility] Comment on above: Order Comment: 'TROP ' Serial specimen #1, #2 or #3: 1 Performed By: #### L 500.4050, L100.0500, L501.4020 #### [facility] [address] [place], [address] Chloride [Moles/Vol] 109 mmol/L High 98-107 [facility] Comment on above: Order Comment: 'TROP ' Serial specimen #1, #2 or #3: 1 Performed By: #### L 500.4050, L100.0500, L501.4020 #### [facility] [address] [place], [address] CO2 [Moles/Vol] 31.0 mmol/L Normal 21.0-32.0 [facility] Comment on above: Order Comment: 'TROP ' Serial specimen #1, #2 or #3: 1 Performed By: #### L 500.4050, L100.0500, L501.4020 #### [facility] [address] [place], [address] Creatinine [Mass/Vol] 1.02 mg/dL Normal 0.55-1.02 [facility] Comment on above: Order Comment: 'TROP ' Serial specimen #1, #2 or #3: 1 Result Comment: The validity of the calculated GFR GFRAA in patients over 70 years has not been determined. Clinical correlation is essential. Performed By: #### L 500.4050, L100.0500, L501.4020 #### [facility] [address] [place], [address] ECRCL 29.17 ml/min Normal [facility] Comment on above: Order Comment: 'TROP ' Serial specimen #1, #2 or #3: 1 Performed By: #### L 500.4050, L100.0500, L501.4020 #### [facility] [address] [place], [address] EST GFR - AA 67 mL/min Normal >60 [facility] Comment on above: Order Comment: 'TROP ' Serial specimen #1, #2 or #3: 1 Result Comment: Afri can Iraqi GFR Calc Performed By: #### L 500.4050, L100.0500, L501.4020 #### [facility] [address] [place], [address] GAP 3 Low 5-15 [facility] Comment on above: Order Comment: 'TROP ' Serial specimen #1, #2 or #3: 1 Performed By: #### L 500.4050, L100.0500, L501.4020 #### [facility] [address] [place], [address] GFR/1.73 sq M.predicted among non-blacks MDRD (S/P/Bld) [Vol rate/Area] 55 mL/min/{1.73_m2} Low >60 [facility] Comment on above: Order Comment: 'TROP ' Serial specimen #1, #2 or #3: 1 Result Comment: Non- GFR Calc Performed By: #### L 500.4050, L100.0500, L501.4020 #### [facility] [address] [place], [address] Globulin (S) [Mass/Vol] 3.5 g/dL Normal 2.2-4.2 [facility] Comment on above: Order Comment: 'TROP ' Serial specimen #1, #2 or #3: 1 Performed By: #### L 500.4050, L100.0500, L501.4020 #### [facility] [address] [place], [address] Glucose [Mass/Vol] 124 mg/dL High 74-106 [facility] Comment on above: Order Comment: 'TROP ' Serial specimen #1, #2 or #3: 1 Result Comment: Fast ing Glucose result from 100 to 125 mg/dL suggests IMPAIRED HOMEOSTASIS per A.D.A. criteria. Performed By: #### L 500.4050, L100.0500, L501.4020 #### [facility] [address] [place], [address] Potassium [Moles/Vol] 3.7 mmol/L Normal 3.5-5.1 [facility] Comment on above: Order Comment: 'TROP ' Serial specimen #1, #2 or #3: 1 Performed By: #### L 500.4050, L100.0500, L501.4020 #### [facility] [address] [place], [address] Sodium [Moles/Vol] 143 mmol/L Normal 136-145 [facility] Comment on above: Order Comment: 'TROP ' Serial specimen #1, #2 or #3: 1 Performed By: #### L 500.4050, L100.0500, L501.4020 #### [facility] [address] [place], [address] T PROT 6.8 g/dL Normal 6.4-8.2 [facility] Comment on above: Order Comment: 'TROP ' Serial specimen #1, #2 or #3: 1 Performed By: #### L 500.4050, L100.0500, L501.4020 #### [facility] [address] [place], [address] Urea nitrogen [Mass/Vol] 21 mg/dL High 7-18 [facility] Comment on above: Order Comment: 'TROP ' Serial specimen #1, #2 or #3: 1 Performed By: #### L 500.4050, L100.0500, L501.4020 #### [facility] [address] [place], [address] Emergency Department Summary on 12-31-2023 Emergency Department Summary [facility] Medical Records Department [address] [place] [address] Emergency Department Summary 12/31/23 MR#: [id number] Acct: [id number] Name: SHAGUFTA GUTIERREZ Rep #: [id number] : 1945 78 From: Vincent Brumfield DO PCP: Dr. Russell Shannon, DO Status:DEP ER Location: ED [facility] History of Present Illness Chief Complaint: Confusion PFSH [facility] Medical History Basal cell carcinoma of scalp [...] Oxygen Delivery Method Room Air Room Air [facility] Narrative Medical decision making narrative: HISTORY OF [...] x 3 (more content not included)... Normal [facility] L501.4020on 12-31-2023 TROPONIN-I HS 14 pg/mL Normal 3.0-54.0 [facility] Comment on above: Order Comment: 'TROP ' Serial specimen #1, #2 or #3: 1 Result Comment: Mendel saldana Note: New Test Units and Gender Specific Reference Ranges. For more information see Policy Stat Procedure [place] High Sensitivity Troponin (TNIH) and attachments. Performed By: #### L 500.4050, L100.0500, L501.4020 #### [facility] [address] [place], [address] Urinalysis, Completeon 12-30 AMORPHOUS 3+ PHOS Normal [facility] Comment on above: Order Comment: RADHA CTOR TO SPECIFY Performed By: #### L 400.0001 #### [facility] [address] [place], [address] WBC 5-10 SEEN Normal 0-5 [facility] Comment on above: Order Comment: RADHA CTOR TO SPECIFY Performed By: #### L 400.0001 #### [facility] [address] [place], [address] BILIRUBIN URINE Negative Normal Negative [facility] Comment on above: Order Comment: RADHA CTOR TO SPECIFY Performed By: #### L 400.0001 #### [facility] [address] [place], [address] Clarity (U) Cloudy Normal Clear [facility] Comment on above: Order Comment: RADHA CTOR TO SPECIFY Performed By: #### L 400.0001 #### [facility] [address] [place], [address] Color (U) Yellow Normal Yellow [facility] Comment on above: Order Comment: RADHA CTOR TO SPECIFY Performed By: #### L 400.0001 #### [facility] [address] [place], [address] GLUCOSE, UR Normal Normal Normal [facility] Comment on above: Order Comment: RADHA CTOR TO SPECIFY Performed By: #### L 400.0001 #### [facility] [address] [place], [address] KETONE UR Negative Normal Negative [facility] Comment on above: Order Comment: RADHA CTOR TO SPECIFY Performed By: #### L 400.0001 #### [facility] [address] [place], [address] LEUK ESTERASE 500 /ul Abnormal Negative [facility] Comment on above: Order Comment: RADHA CTOR TO SPECIFY Performed By: #### L 400.0001 #### [facility] [address] [place], [address] Nitrite Ql (U) Negative Normal Negative [facility] Comment on above: Order Comment: RADHA CTOR TO SPECIFY Performed By: #### L 400.0001 #### [facility] [address] [place], [place], [facility] OCCULT BLOOD-UR 25 /ul Abnormal Negative [facility] Comment on above: Order Comment: RADHA CTOR TO SPECIFY Performed By: #### L 400.0001 #### [facility] [address] [place], [address] pH UR 7.0 Normal 5.0 - 8.0 [facility] Comment on above: Order Comment: RADHA CTOR TO SPECIFY Performed By: #### L 400.0001 #### [facility] [address] [place], [address] PROT DIPSTX 30 mg/dl Abnormal Negative [facility] Comment on above: Order Comment: RADHA CTOR TO SPECIFY Performed By: #### L 400.0001 #### [facility] [address] [place], [address] SP.GR. DIPSTX 1.010 Normal 1.002-1.030 [facility] Comment on above: Order Comment: RADHA CTOR TO SPECIFY Performed By: #### L 400.0001 #### [facility] [address] [place], [address] UROBILI Normal Normal Normal [facility] Comment on above: Order Comment: RADHA CTOR TO SPECIFY Performed By: #### L 400.0001 #### [facility] [address] [place], [address] BACTERIA 0 SEEN Normal None Seen [facility] Comment on above: Order Comment: RADHA CTOR TO SPECIFY Performed By: #### L 400.0001 #### [facility] [address] [place], [address] EPI,SQUAMOUS 0 SEEN Normal 5-10 [facility] Comment on above: Order Comment: RADHA CTOR TO SPECIFY Performed By: #### L 400.0001 #### [facility] [address] [place], [address] Mucus Ql (Urine sed) 0 SEEN Normal [facility] Comment on above: Order Comment: RADHA CTOR TO SPECIFY Performed By: #### L 400.0001 #### [facility] [address] [place], [address] RBC 0 SEEN Normal 0-5 [facility] Comment on above: Order Comment: RADHA CTOR TO SPECIFY Performed By: #### L 400.0001 #### [facility] [address] [place], [address] Radiation Oncology Visiton 1 Radiation Oncology Visit [facility] [address] 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 10/17/2023: received palliative radiation therapy to the right breast consisting of 2600 cGy with a simultaneous boost to the gross disease of 3000 cGy all delivered in 5 fractions. She was treated in the supine position with a 3D conformal treatment plan. Radiation Treatment History: 1) From 10/10/2023 ??? 9/ (more content not included)... 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 [facility] will maintain follow up with all [...] this patient. Sincerely, Ken Law DO, MS Associate Broker, Department of Radiation Oncology [facility] 10/17/23 5534 Date Ken Nicolas Signature: Date (if applicable) CC: Dr. Xavi Whitten MD; Dr. Russell Shannon DO; Dr. Priyanka Cook MD [facility] Radiation Oncology Visiton 0 10-16-2023 Radiation Oncology Visit [facility] [address] 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 Normal [facility] Oncology Visit Reporton 09-12 Oncology Visit Report [facility] [address] [place] [address] OFFICE VISIT Date of Service: 10/01/23 1059 MR#: [id number] Acct: [id number] Name: SHAGUFTA GUTIERREZ Rep #: [id number] : 1945 From: Sachin Bolaños MD Age/Sex: 78/F [place] [facility] [place] Status: Signed HPI Subjective Date of Service 10/01/23 Chief Complaint Referred for R breast cancer and ulcer. History of Present Illness 78-year-old woman with dementia presented with right breast mass with ulceration. Mammogram on 09/13/2023 showed right breast mass with calcifications. She saw Dr. Cook on 09/17/2023 core biopsy was done. [facility] Medical History Basal cell carcinoma of scalp [...] Const aler (more content not included)... Normal [facility] Radiation Oncology Visiton 0 09-26-2023 Radiation Oncology Visit [facility] [place] [address] OFFICE VISIT Date of Service: 09/26/23 1102 MR#: [id number] Acct: [id number] Name: SHAGUFTA GUTIERREZ Rep #: [id number] : 1945 From: Ken Law DO Age/Sex: 78/F [place] [facility] [place] Status: Signed Intake Vital Signs 09/17/23 [...] cN0 Mx) grade 2 IDC (ER 0%, KY 0%, Her2 1-2+ IHC) of the right [...] consistent with grade 2 IDC (ER 0%, KY 0%, Her2 1-2+ IHC) Radiation Treatment History: [...] bleeding occasi (more content not included)... Normal [facility] ER (initial)on 09-17-2023 ER (initial) -- ---- Patient Age/Sex Location Account Attending Physician ---- SHAGUFTA GUTIERREZ 78/F LABSPEC [id number] Dr. Priyanka Cook MD ---- Specimen: [id number] Received: 09/19/23 Status: KENTON Mcadams Num: [id number] Spec Type: IMMUNO Subm Dr: Dr. Priyanka Cook MD PHYSICIAN INSTITUTION [place] [address] SPECIMEN INFORMATION: Tissue Source: Right breast mass Clinical Info: Right breast mass Specimen Number: [id number] CPT code: 30679,75986d8,89773z5 METHODOLOGY: Deparaffinized sections of prefer/formalin-fixed tissue or PAP/DQ stained slides are incubated with monoclonal/polyclonal antibodies/oligonucleo tide probes. Localization is made via biotin free immunoperoxidase method. Appropriate controls are performed and reacted as expected. Results on target cell population are indicated in the following table: RESULTS: ANTIBODY / CLONE RESULT P53 (DO-7) negative, null pattern Ki-67 (30-9) positive, 85% CK8 (11rlkyE17) positive CK5-6 (D5 1684) positive, focal Calponin-1 (MP409K) negative P40 (BC28) negative E-Cad (ECH-6) positive MOC-31 (4561) positive Factor VIII (R Ag) negative CD31 (MICHAEL/70A) negative MORPHOMETRIC ANALYSIS ER (clone 6F11) 0% KY (clone 16/1E2) 0% Her-2Neu (clone CB11) 2+ [...] Attending Physician ---- SHAGUFTA GUTIERREZ 78/F LABSPEC [id number] Dr. Priyanka Cook MD ---- RESULTS: (Continued) [...] Factor Receptor 2 Testing in Breast Cancer: [place] Society of Clinical Oncology / College of [place] Pathologists Clinical Practice Guideline Update. J Clin Oncol 31:9857-6179, 2013. The prognostic test for HER2 is performed on formalin-fixed paraffin embedded tissue. A 3+ (positive) staining pattern is defined as intense, homogeneous, complete, circumferential membranous staining in >10% of contiguous tumor cells. A similar weak (2+) staining pattern is interpreted as equivocal. NATALIA follow-up testing is recommended for all equivocal cases. Positivity/negativity for ER/KY is reported if > or < 1% of the tumor cells are immuno- reactive, respectively. The ASCO/CAP criteria is used for scoring. Reference: Journal of Clinical Oncology, 2013; 31:5645-3353 2010; 16:1182-8397. Ischemic time: Less than one hour. Duration [...] developed and their performance characteristics determined by [facility]. They may not have been cleared or approved by the U.S. Food and Drug Administration. The FDA has determined that such clearance or approval is not necessary. The above immunohistochemical/du alISH markers are ordered and reviewed by the Pathologist. The test for HER 2 is performed on formalin-fixed paraffin embedded tissue using the CB11 mouse monoclonal antibody (Cell VSE EVAKUATORY ROSSII). A 3+ staining pattern is interpreted as positive and is defined as a strong membranous staining involving the entire cell membrane in over 30% of invasive tumor cells. A similar weak s (more content not included)... Normal [facility] Comment on above: Performed By: #### P ER #### [facility] [place], [address] Surgery Specimen Level Pablo 09-17-2023 Surgery Specimen Level IV ---- Patient Age/Sex Location Account Attending Physician ---- SHAGUFTA GUTIERREZ 78/F LABSPEC [id number] Dr. Priyanka Cook MD ---- Specimen: [id number] Received: 09/17/23 Status: KENTON Pema Num: [id number] Spec Type: BREAST BX Subm Dr: Dr. [...] Findings: Mild chronic inflammation Breast Marker Study: [id number] ER: 0% KY: 0% Her2:Equivocal (1-2+) Ki67: 85% Her2 Dual NATALIA: Not Amplified/Negative The above summary is in compliance with College of [place] Pathology (CAP) Cancer Protocols Checklist and [place] Joint Committee on Cancer (AJCC), Staging Manual, 8th Ed. Case has been reviewed in consultation with Dr. Gross who concurs with the above diagnosis. IDC:SJ ---- Patient Age/Sex Location Account Attending Physician ---- SHAGUFTA GUTIERREZ 78/F LABSPEC [id number] Dr. Priyanka Cook MD ---- MICROSCOPIC DESCRIPTION Slides are reviewed. GROSS DESCRIPTION Received in fixative is one container labeled with the patient's name and designated Right breast mass. The specimen consists of two elongated fragments of julian-yellow fibroadipose tissue measuring in aggregate 1.5 x 0.2 x 0.1cm. The entire specimen is submitted in one cassette. ALEC/ 09/18/2023 TC:0 CPT:98568 ---- Patient Age/Sex Location Account Attending Physician ---- SHAGUFTA GUTIERREZ 78/F LABSPEC [id number] Dr. Priyakna Cook MD ---- Signed (signature on file) Dr. Maximiliano Taylor, 09/24/23 1333 ---- Normal [facility] Comment on above: Performed By: #### P SUIV #### [facility] [address] [place], [place], [address] Surgery Visit Reporton 09-16 Surgery Visit Report [facility] [address] [place] [address] OFFICE VISIT Date of Service: 09/17/23 MR#: [id number] Acct: [id number] Name: SHAGUFTA GUTIERREZ Rep #: [id number] : 1945 Provider: Dr. Priyanka perez MD Age/Sex: 78/F Location: [facility] Status: Signed Intake Vital Signs 03/13/21 11:23 [...] HPI HPI: 78-year-old female presents with her wqayglpy-rt-emw due to right breast mass and abnormal mammogram. Patient does have past medical history for dementia unable to really tell us when she started to notice this. Upzepnhm-cw-ndi states that she was wincing when getting [...] cooperative, healthy appearing and no acute distress [facility] Head: normal to inspection Chest Other: Breast inspection: Large firm fungating right breast mass with open wound below the nipple with oozing Right breas (more content not included)... Normal [facility] 09-16-2023 [facility] Telephone ([place]) SHAGUFTA GUTIERREZ ([id number]) 1945 F Date Time Provider Department 09/16/23 OSWALD BAXTER During your visit today, we recorded the following information about you: Danika Ford LPN 09/16/2023 3:03 PM Addendum New pt. Referral from Dr. Shannon, Right Breast with open bleeding lesion in 8o'clock position entire breast hard to touch with multiple raised lesions covering it. Left message on voicemail at [facility] needing to know if and when pt [...] to Follow up with Dr. Law @ [facility]. TAYLOR Sow Melanie, LPN 09/19/2023 5:01 PM Signed PSS- patient will still need an appointment with medical oncology. Please contact patient to make sure she is aware and offer her a new patient appointment here if she is not already set up with medical oncology at [facility]. TAYLOR Puga Stephanie 09/20/2023 8:41 AM Signed Left message for patient to return call. When she calls, please offer to scheduel with Dr. Baxter/Asmita as she will still need to see Medical Oncology. (Patient will be doing Rad/Onc at [facility]). Madelyn Mobley 09/23/2023 8:36 AM Signed Spoke to patient and scheduled as directed. Shell Duran 09/23/2023 8:38 AM Signed The son Alcides called back to cancel as patient is being seen at [facility] but does not know provider name. [...] 14 - Other: See Comments Comments: palpitations TJJOFMY-RLO-ZRZ REDUCTASE INHIBIT*10/08/2013 14 - Other: See Comments [...] Status:Closed by MADELYN VALDEZ on 09/23/23 Normal [facility] DIAG MAMM W/CAD, BILATon DIAG MAMM W/CAD, BILAT [facility] Imaging Services [address] [place], [place] [id number] DIAG MAMM W/CAD, BILAT MR#: [id number] Acct: [id number] Name: SHAGUFTA GUTIERREZ Rep #: [id number] : 1945 F 78 From: Jean-Claude ventura MD PCP: Dr. Russell Shannon, DO Status: REG CL Study: DIAG MAMM W/CAD, BILAT Date of Exam: 09/13/23 Exam# [id number] Ordering Dr: Jyotsna Baldwin SITE LEASING AGENT-C [id number] MAMMOGRAPHY - BILATERAL SCREENING REASON FOR EXAM: [...] delay biopsy of a clinically suspicious abnormality. [id number] Electronically Signed: Jean-Claude Najera MD at 10:13 EDT , CC: ALHAJI Baldwin; Dr. Russell Shannon, Cloth Finishing Range Operator: Signed Normal [facility] - Chemistry and C hemistry - challengeOrdered By: Russell Shannon on 09-25-2022 Free T4 [Mass/Vol] 1.31 ng/dL 0.76-1.46 [facility] No Panel InformationOrdered By: Russell Shannon on 09-25-2022 Ionized Calcium 5.38 mg/dL 4.36-5.20 [facility] Parathyroid Hormone (Intact) 65.0 pg/mL 18.4-80.1 [facility] Thyroid Stimulating Hormone (TSH) 9.04 uIU/mL 0.358-3.74 [facility] Vitamin D 25-Hydroxy 34.3 ng/mL [facility] Comment on above: Vitamin D 25(OH) Sta tus Range Deficiency <20 ng/mL (50nmol/L) Insufficiency 20 - 30 ng/mL (50 - 75 nmol/L) Sufficiency 30 - 100 ng/mL (75 - 250 nmol/L) Toxicity >100 ng/mL (>250 nmol/L) Serum or plasma calcitriol m easurement (mass/volume)Ordered By: Russell Shannon on 09-25-2022 1,25-dihydroxyvitamin D3 [Mass/Vol] 53.1 pg/mL 24.8-81.5 [facility] Comment on above: Performed at: [address] [id number] Director: Jacqui Peters MD, Phone: [phone] Absolute lymphocyte countOrd ered By: Russell Shannon on 08-28-2022 Lymphocytes Auto (Unsp spec) [#/Vol] 1.36 10*3/uL 0.83-4.51 [facility] Basophil percentageOrdered B y: Russell Shannon on 08-28-2022 Basophils/100 WBC (Bld) 0.9 % 0-1 [facility] Bilirubin [Mass/Vol] 0.50 mg/dL 0.20-1.00 [facility] Comment on above: For patients on eltr ombopag therapy, use of Dimension [place] TBIL is not recommended. Chloride [Moles/Vol] 105 mmol/L 98-107 [facility] Eosinophils/100 WBC (Bld) 3.8 % 0-5 [facility] Glucose [Mass/Vol] 99 mg/dL 74-106 [facility] LDH [Catalytic activity/Vol] 257 U/L 84-246 [facility] Neutrophils (Bld) [#/Vol] 4.3 10*3/uL 2.0-7.7 [facility] Neutrophils/100 WBC (Bld) 66.5 % 47-70 [facility] Potassium [Moles/Vol] 3.7 mmol/L 3.5-5.1 [facility] Protein [Mass/Vol] 7.6 g/dL 6.4-8.2 [facility] Sodium [Moles/Vol] 141 mmol/L 136-145 [facility] WBC (Bld) [#/Vol] 6.5 10*3/uL 4.4-11.0 [facility] Blood erythrocytes count (nu mber/volume)Ordered By: Russell Shannon on 08-28-2022 RBC (Bld) [#/Vol] 4.75 10*6/uL 4.2-5.4 [facility] Blood hemoglobin measurement (mass/volume)Ordered By: Russell Shannon on 08-28-2022 Hemoglobin (Bld) [Mass/Vol] 13.7 g/dL 12.0-15.0 [facility] Blood lymphocytes/100 leukoc ytesOrdered By: Russell Shannon on 08-28-2022 Lymphocytes/100 WBC (Bld) 20.9 % 19-41 [facility] Blood monocytes/100 leukocyt esOrdered By: Russell Shannon on 08-28-2022 Monocytes/100 WBC (Bld) 7.7 % 0-10 [facility] Blood platelet mean volumeOr dered By: Russell Shannon on 08-28-2022 Platelet mean volume (Bld) [Entitic vol] 10.2 fL 6.2-12.0 [facility] Determination of erythrocyte mean corpuscular volume (MCV)Ordered By: Russell Shannon on 08-28-2022 MCV (RBC) [Entitic vol] 90.5 fL 81-99 [facility] Hematocrit Auto (Bld) [Volum e fraction]Ordered By: Russell Shannon on 08-28-2022 Hematocrit (Bld) [Volume fraction] 43.0 % 37-47 [facility] Iron measurement (mass/mass) Ordered By: Russell Shannon on 08-28-2022 Iron (Unsp spec) [Mass/Mass] 48 ug/dL 50-170 [facility] Laboratory - Chemistry and C hemistry - challengeOrdered By: Russell Shannon on 08-28-2022 ALP [Catalytic activity/Vol] 85 U/L 45-117 [facility] ALT [Catalytic activity/Vol] 34 U/L 13-56 [facility] CO2 [Moles/Vol] 30.0 mmol/L 21.0-32.0 [facility] Cobalamin (Vitamin B12) [Mass/Vol] 723 pg/mL 211-911 [facility] Free T4 [Mass/Vol] 1.38 ng/dL 0.76-1.46 [facility] Globulin (S) [Mass/Vol] 3.6 g/dL 2.2-4.2 [facility] Urea nitrogen/Creatinine [Mass ratio] 22.4 mg/mg 10-20 [facility] Laboratory - Hematology and Cell countsOrdered By: Russell Shannon on 08-28-2022 Erythrocyte distribution width (RBC) [Entitic vol] 42.6 fL 35.1-43.9 [facility] Erythrocyte distribution width (RBC) [Ratio] 12.9 % 11.6-14.6 [facility] Immature granulocytes/100 WBC (Bld) 0.200 % 0.0-0.9 [facility] Comment on above: IG% - Immature Granu locytes (promyelocytes, myelocytes and metamyelocytes) > 1% indicates that a LEFT SHIFT is Present. MCH (RBC) [Entitic mass] 28.8 pg 27.0-32.0 [facility] Nucleated RBC/100 WBC (Bld) [Ratio] 0 % 0-5 [facility] MCHC Auto (RBC) [Mass/Vol]Or dered By: Russell Shannon on 08-28-2022 MCHC (RBC) [Mass/Vol] 31.9 g/dL 32-36 [facility] No Panel InformationOrdered By: Russell Shannon on 08-28-2022 Estimated GFR (MDRD) Amer 64 mL/min >60 [facility] Comment on above: GFR Calc Estimated GFR (MDRD) Non-Af Amer 53 mL/min >60 [facility] Comment on above: Non- GFR Calc Thyroid Stimulating Hormone (TSH) 10.20 uIU/mL 0.358-3.74 [facility] Platelets bldOrdered By: Ellie Shannon on 08-28-2022 Platelets (Bld) [#/Vol] 275 10*3/uL 150-450 [facility] Serum or plasma albumin shon urement (mass/volume)Ordered By: Russell Shannon on 08-28-2022 Albumin [Mass/Vol] 4.0 g/dL 3.2-5.0 [facility] Serum or plasma albumin/glob ulin mass ratioOrdered By: Russell Shannon on 08-28-2022 Albumin/Globulin [Mass ratio] 1.1 {ratio} 0.9-2.4 [facility] Serum or plasma calcium shon urement (mass/volume)Ordered By: Russell Shannon on 08-28-2022 Calcium [Mass/Vol] 10.4 mg/dL 8.5-10.1 [facility] Serum or plasma creatinine m easurement (mass/volume)Ordered By: Russell Shannon on 08-28-2022 Creatinine [Mass/Vol] 1.07 mg/dL 0.55-1.02 [facility] Comment on above: The validity of the calculated GFR & GFRAA in patients over 70 years has not been determined. Clinical correlation is essential. Serum or plasma ferritin ak[place] surement (mass/volume)Ordered By: Russell Shannon on 08-28-2022 Ferritin [Mass/Vol] 81 ng/mL 8252 [facility] Serum or plasma transthyreti n measurement (mass/volume)Ordered By: Russell Shannon on 08-28-2022 Prealbumin [Mass/Vol] 25.5 mg/dL 20.0-40.0 [facility] Serum or plasma urea nitroge n measurement (mass/volume)Ordered By: Russell Shannon on 08-28-2022 Urea nitrogen [Mass/Vol] 24 mg/dL 7-18 [facility] Thin prep Papanicolaou smear with manual screeningOrdered By: Russell Shannon on 08-28-2022 Thin prep Papanicolaou smear with manual screening 36 U/L 15-37 [facility] Thin prep Papanicolaou smear with manual screening 6 5-15 [facility] Encounters Encounter Date Encounter Type Care Provider Facility Start: 08-07-2024 End: 08-07-[address] Russell Shannon DO Work Phone: -[facility] Start: 08-07-2024 End: 08-07-[address] Russell Shannon DO -[facility] Start: 08-07-2024 End: 08-07-[address] [facility] Facility:[facility] Start: 02-13-2024 End: 02-13-[address] [facility] Facility:[facility] Start: 12-31-2023 End: 12-31-2023 Emergency department patient visit Russell [facility] Facility:[facility] Start: 11-14-2023 End: 11-14-2023 ambulatory [facility] Facility:[facility] Start: 10-17-2023 ambulatory [facility] Facility: [facility] Start: 10-16-2023 End: 10-16-2023 ambulatory [facility] Facility:[facility] Start: 10-10-2023 ambulatory [facility]: [facility] Start: 10-09-2023 ambulatory [facility]: [facility] Start: 10-02-2023 ambulatory [facility]: [facility] Start: 10-01-2023 End: 10-01-2023 ambulatory [facility] Facility:[facility] Start: 09-26-2023 End: 09-26-2023 ambulatory [facility] Facility:[facility] Start: 09-17-2023 End: 09-17-2023 ambulatory [facility] Facility:[facility] Start: 09-17-2023 End: 09-17-2023 ambulatory [facility] Facility:[facility] Start: 09-16-2023 Telephone encounter Oswald guardado DO Work Phone: Hematology/Oncology Start: 09-13-2023 End: 09-13-2023 ambulatory [facility] Facility:[facility] Start: 09-25-2022 End: 09-25-2022 ambulatory [facility] Work Phone: Start: 09-25-2022 End: 09-25-2022 Patient encounter procedure [facility]-Laboratory, [facility] Start: 08-28-2022 End: 08-28-2022 ambulatory [facility] Work Phone: Start: 08-28-2022 End: 08-28-2022 Patient encounter procedure [facility] Procedures Date Procedure Procedure Detail Performing Clinician H/O: surgery History of basal cell carcinoma excision Comment on above: Excision 2 cm ulcera vince basal cell carcinoma left frontal scalp with FTSG reconstruction from bilateral necks (14 cm2) - 03/13/21 Plan of Treatment Date Care Activity Detail Author Start: 10-13-2023 Influenza vaccination Influenza Vaccine (#1) [facility] Start: 02-11-2023 Advance Directive Discussion Advance Directive Discussion [facility] Start: 10-12-2022 Covid-19 Vaccine ( season) Covid-19 Vaccine ( season) [facility] Start: 09-25-2022 Procedure [facility] Start: 2008 Pneumococcal Vaccine: 65+ (1 of 1 - PCV) Pneumococcal Vaccine: 65+ (1 of 1 - PCV) [facility] Start: 2008 Screening for osteoporosis Bone Density Screening [facility] Start: 2003 RSV Vaccine (1 - 1-dose 60+ series) RSV Vaccine (1 - 1-dose 60+ series) [facility] Start: 1993 Shingrix Vaccine (1 of 2) Shingrix Vaccine (1 of 2) [facility] Start: 1988 Diabetes Screening Diabetes Screening [facility] Start: 1962 Urine microalbumin profile DTaP,Tdap,Td Vaccine (1 - Tdap) [facility] Start: 1961 Anxiety Screening Anxiety Screening [facility] Start: 1961 Depression Screening Depression Screening [facility] Immunizations Immunization Date Immunization Notes Care Provider Fa cility 05-20-2020 Covid (Pfizer) [facility] 04-29-2020 Covid (Pfizer) [facility] 03-11-2019 tetanus toxoid, redu flaquita diphtheria toxoid, and acellular pertussis vaccine, adsorbed [facility] 02-11-2010 pneumococcal vaccine , unspecified formulation [facility] Payers Date Payer Category Payer Self-pay [id number] 2013 Medicare HUMANA MEDICARE HUMANA MEDICARE PFFS [id number] 2013-Present [phone] [address] [address] [place] [address] Indemnity [id number] 2012 Private Health Insurance [id number] 2008 Medicare [id number] Unknown [id number] Unknown [id number]. 2.462 Unknown [id number] [id number]. 2.462 Unknown [id number] [id number]. 2.462 Unknown [id number] [id number]. 2.462 Unknown [id number] [id number]. 2.462 Unknown [id number] [id number]. 2.462 Unknown [id number] [id number]. 2.462 Unknown [id number] [id number]. 2.462 Unknown [id number] [id number]. 2.462 Unknown [id number] [id number]. 2.462 Unknown [id number] [id number]. 2.462 Unknown [id number] [id number]. 2.462 Unknown [id number] [id number]. 2.462 Unknown [id number]. 2.462 Social History Date Type Detail Facility [facility]: [facility] Start: 06-06-2013 None [facility] Start: 06-06-2013 Alone [facility] Start: 1945 Sex Assigned At Female [facility] Start: 10-08-2013 End: 12-31-2023 Tobacco smoking status NHIS Ex-smoker [facility] History of tobacco use Current smoker [facility] History of tobacco use Cigarette Smoker [facility] Start: 12-08-2013 Alcohol intake Current drinke r of alcohol (finding) [facility] Start: 1945 Sex Assigned At Not on file [facility] Gender identity Not on file [facility]ic Clinical Notes 09-16-2023 to 09-23-2023 Telephone [...] I will try again later Zahira Lee [facility] 09-23-2023 Miscellaneous Notes Formattin g of [...] cancel as patient is being seen at [facility] but does not know provider name. Spoke to patient and scheduled as directed. Madelyn Valdez Left message for patient to return call. When she calls, please offer to scheduel with Dr. Baxter/Asmita as she will still need to see Medical Oncology. (Patient will be doing Rad/Onc at [facility]). Shaista Johns PSS- patient will still need an appointment with medical oncology. Please contact patient to make sure she is aware and offer her a new patient appointment here if she is not already set up with medical oncology at [facility]. Rosalina De La Cruz LPN Olesya from DR. Mcconnell office contacted us stating Pt. Is going to Follow up with Dr. Law @ [facility]. Danika Ford LPN New pt. Referral [...] Also left message on pts. voicemail Danika Frod LPN documented in this encounter [facility] 09-23-2023 Telephone encount er Note Again, patient is only scheduled with Dr. Law (radiation oncology), I verified in their system. She will need to see medical oncology as stated below. Rosalina De La Cruz LPN [facility] 09-23-2023 Telephone encount er Note The son Alcides called back to cancel as patient is being seen at [facility] but does not know provider name. [facility] 09-23-2023 Telephone encount er Note Spoke to patient and scheduled as directed. Madelyn Valdez [facility] 09-20-2023 Telephone encount er Note Left message for patient to return call. When she calls, please offer to scheduel with Dr. Baxter/Asmita as she will still need to see Medical Oncology. (Patient will be doing Rad/Onc at [facility]). Shaista Johns [facility] 09-19-2023 Telephone encount er Note PSS- patient will still need an appointment with medical oncology. Please contact patient to make sure she is aware and offer her a new patient appointment here if she is not already set up with medical oncology at [facility]. Rosalina De La Cruz LPN [facility] 09-17-2023 Telephone encount er Note Olesya from DR. Mcconnell office contacted us stating Pt. Is going to Follow up with Dr. Law @ [facility]. Danika Ford LPN [facility] 09-16-2023 Telephone encount er Note New pt. Referral from Dr. Shannon, Right Breast with open bleeding lesion in 8o'clock position entire breast hard to touch with multiple raised lesions covering it. Left message on voicemail at [facility] needing to know if and when pt is scheduled for Biopsy or surgery. Pt. Scheduled to see Dr. Cook tomorrow 09/16 , they are planning on doing BX, Olesya office nurse will call again tomorrow with future plans. Also left message on pts. voicemail Danika Ford LPN [facility] Evaluation note No assessment inform ation available [facility] Work Phone: Reason for referral (narrative) No reaso n for referral information available [facility] Work Phone: Advance Directives No Advanced Directives Records Found Advance Directive Response Recorded Date/ Time Advance Directives Yes November 19, 2013 1:13pm Living Will Yes March 10 3:35pm Power of Assistant Front Desk Manager Yes March 10, 2021 3:35pm Advance [...] or prosecute any alcohol or drug abuse patient.[facility] INFORMATION SOURCE (unrecogn ized section and content) DATE CREATED AUTHOR 09/26/2023 [facility] DATE CREATED AUTHOR KIM LOPEZ 08/14/2024 [facility] FOR RECORDS PERTAINING TO PATIENTS WHO ARE [...] BE BASED ON THE PRIMARY CLINICAL RECORDS. [employer] provides no warranty or guarantee of the accuracy or completeness of information in this document.
[2024-10-18 20:46] LABS: Troponin T High Sens 2 HR 27 ng/L (<=14)
[2024-10-18 21:01] VITALS: BMI 14.3
[2024-10-18 21:13] VITALS: BP 104/48; PULSE 55; RESP 16; TEMP 36.7; O2SAT 94
[2024-10-18] MEDS: 0.9% Normal Saline (1000mL) 1,000 ML 50 ML IV (23:50)
[2024-10-18] MEDS: Memantine Hydrochloride 5 MG Tablet PO (23:54)
[2024-10-19 01:12] LABS: Troponin T High Sens 4 HR 32 ng/L (<=14)
[2024-10-19 03:00] VITALS: BP 145/56; PULSE 60; RESP 16; TEMP 36.5; O2SAT 93
[2024-10-19 06:37] LABS: Hematocrit 36.3 % (37-47); Hemoglobin 11.7 g/dL (12.0-15.0); Immature Granulocytes Count 0.030 X10^3/uL (0.0-0.0); Mean Corp Hgb Conc 32.2 g/dL (32-36); Mean Corpuscular Volume 85.4 fL (81-99); Mean Platelet Vol. 9.7 fl (6.2-12.0); NRBC Flagged by Analyzer 0 % (0-5); Platelet Count 297 K/mm3 (150-450); RBC Distribution Width CV 15.7 % (11.6-14.6); RBC Distribution Width SD 47.1 fl (35.1-43.9); Red Blood Count 4.25 M/mm3 (4.2-5.4); White Blood Count 6.4 K/mm3 (4.4-11.0)
[2024-10-19 07:42] LABS: Anion Gap 11 (5-15); BUN 28 mg/dL (4-19); BUN/Creat Ratio 24.6 RATIO (10-20); Calcium,Total 9.1 mg/dL (7.6-11.0); Carbon Dioxide 21.9 mmol/L (21.0-32.0); Chloride 107 mmol/L (98-108); Estimated Creatinine Clearance 24.30 ml/min (50-250); Glucose 90 mg/dL (70-99); Potassium 3.5 mmol/L (3.3-5.1)
[2024-10-19 08:11] VITALS: BP 160/79; PULSE 67; RESP 16; TEMP 36.4; O2SAT 95
[2024-10-19] MEDS: Memantine Hydrochloride 5 MG Tablet PO ×2 (08:16→21:45)
[2024-10-19 09:00] VITALS: O2SAT 93
--- NOTE | 2024-10-19 09:37 | PCM.PN.HOSP ---
Subjective Subjective Continues to be a little bit altered. Unfortunately urine sample was thrown away by the lab and she has received antibiotics so cannot obtain a urine culture, unfortunately no urine culture was sent from the ER Objective Data Objective Data Vital Signs: Vital Signs Temp Pulse Resp BP Pulse Ox O2 Del Method O2 Flow Rate 97.6 F L 67 16 160/79 H 95 Nasal Cannula 2 10/19/24 08:11 10/19/24 08:11 10/19/24 08:11 10/19/24 08:11 10/19/24 08:11 10/19/24 08:13 10/19/24 08:13 Oxygen Flow Rate (L/min) 2 Oxygen Delivery Method Nasal Cannula Weight: 86 lb 2 oz Body Mass Index (BMI) 14.3 Intake & Output: Intake and Output for Last 24 Hours 10/18/24 10/19/24 10/20/24 03:59 03:59 03:59 Intake Total 300 / 300 Balance 300 / 300 Lab / Micro Data 10/19/24 05:46 10/19/24 05:46 Labs: Laboratory Results - last 24 hr 10/18/24 17:48: WBC 8.6, RBC 4.43, Hgb 12.3, Hct 38.0, MCV 85.8, MCH 27.8, MCHC 32.4, RDW Std Deviation 47.4 H, RDW Coeff of Andrew 15.6 H, Plt Count 317, MPV 9.4, Sodium 138, Potassium 3.8, Chloride 104, Carbon Dioxide 20.3 L, Anion Gap 14, BUN 36 H, Creatinine 1.32 H, Estim Creat Clear Calc 20.08 L, Est GFR (MDRD) Non-Af 41 L, BUN/Creatinine Ratio 27.2 H, Glucose 104 H, Calcium 9.9, Total Bilirubin 0.28, AST 67 H, ALT 24, Alkaline Phosphatase 100, Troponin T High Sens 29 H, Total Protein 6.4, Albumin 3.2 L, Globulin 3.2, Albumin/Globulin Ratio 1.0 10/18/24 18:39: Urine Color Yellow, Urine Clarity Sl. Cloudy, Urine pH 5.0, Ur Specific [place] 1.025, Urine Protein 30 H, Urine Glucose (UA) Normal, Urine Ketones Negative, Urine Occult Blood 50 H, Urine Nitrite Positive H, Urine Bilirubin Negative, Urine Urobilinogen Normal, Ur Leukocyte Esterase 500 H, Urine RBC 0-5 SEEN, Urine WBC 5-10 SEEN, Ur Squamous Epith Cells 0-5 SEEN, Urine Bacteria 3+, Urine Mucus 0 SEEN 10/18/24 19:48: Troponin T Hi Sens 2 Hr 27 H 10/19/24 00:44: Troponin T Hi Sens 4Hr 32 H 10/19/24 05:46: WBC 6.4, RBC 4.25, Hgb 11.7 L, Hct 36.3 L, MCV 85.4, MCH 27.5, MCHC 32.2, RDW Std Deviation 47.1 H, RDW Coeff of Andrew 15.7 H, Plt Count 297, MPV 9.7, Immature Gran % (Auto) 0.500, Neut % (Auto) 76.0 H, Lymph % (Auto) 10.7 L, [place] % (Auto) 9.6, Eos % (Auto) 2.3, Baso % (Auto) 0.9, Absolute Neuts (auto) 4.9, Absolute Lymphs (auto) 0.69 L, Nucleated RBC % 0, Sodium 140, Potassium 3.5, Chloride 107, Carbon Dioxide 21.9, Anion Gap 11, BUN 28 H, Creatinine 1.12, Estim Creat Clear Calc 24.30 L, Est GFR (MDRD) Non-Af 49 L, BUN/Creatinine Ratio 24.6 H, Glucose 90, Calcium 9.1, TSH 19.100 H Radiography Diagnostic Testing: Radiology Impression Brain CT 10/18/24 17:40 IMPRESSION: Focal soft tissue swelling and gas along the left frontal scalp to be correlated for soft tissue injury. No acute intracranial hemorrhage or acute calvarial fracture. - Global parenchymal volume loss and associated ex vacuo ventricular dilation. - Intracranial atherosclerosis and microvascular ischemic changes again noted. - Other findings discussed above. Reading Location: [facility] Chest X-Ray 10/18/24 17:55 IMPRESSION: Extensive pulmonary opacities, worrisome for malignancy/metastatic disease. Superimposed pneumonia can not be ruled out. Findings and recommendations discussed above. Reading Location: [facility] Physical Exam Narrative General: Alert, Oriented x1-2, Cooperative, No apparent distress HEENT: Atraumatic, PERRLA, EOMI, Normocephalic Oral: Moist Mucosa Neck: Supple, No JVD Lungs: Diminished, Normal air movement, No rhonchi, No wheeze, No rales Cardiovascular: Regular rate, Regular Rhythm, Normal S1, Normal S2, No murmurs Abdomen: Soft, Non Tender, Non-Distended, No Hepato-splenomegaly Extremities: No edema, Capillary Refill Less than 3 Seconds Skin: Multiple skin lesions, 1 on her scalp consistent with a basal cell carcinoma Musculoskeletal: No Tenderness to Palpation of Joints or Extremities Neurological: No focal neurological deficits, moves all extremities Psych/Mental Status: Normal Affect, Appropriate Assessment & Plan Assessment/Plan (1) UTI (urinary tract infection): PLAN: Plan 1. Acute metabolic encephalopathy secondary to UTI in the setting of chronic dementia ? Urine analysis looks very positive for UTI however no urine culture was sent ? Ordered urine culture today however the laboratory has already thrown out the urine sample from admission ? She is already received multiple doses of antibiotics so at this point urine culture would be useless from a new sample ? Continue with Rocephin and azithromycin, there was concern for possibility of pneumonia given the productive cough ? Continue with her home medications for her dementia 2. Basal cell carcinoma as well as breast cancer ? Underwent palliative radiation last year for her breast cancer ? At the time she had a fungating mass on the right breast that was reduced in size ? She does have suspicious findings on her chest x-ray consistent with her breast cancer given her dementia will discuss with family if they would like to proceed with further investigation ? They had not elected in February to observe her breast cancer and forego any new treatments 3. Hypothyroidism ? Stable ? Continue with Synthroid 4. Essential hypertension ? Can restart losartan tomorrow ? Renal functions back to baseline 5. Anxiety/depression ? Stable ? Continue with her home medications DVT: SCDs Charges/Coding Visit Charges Inpatient E&M: 56005 Subs Hosp L2
--- NOTE | 2024-10-19 13:19 | CASEMGMT ---
KEELEY LOWE Assessment Face to Face with patient for initial transition planning/care coordination assessment. Pt has a hx of dementia and is currently disoriented. TC to pt's BETYKlaz. Alcides states that he is the POA and that he will bring in paperwork when he can. Alcides is agreeable to answering this KEELEY LOWE questions for assessment. Care providers, pharmacy, and demographics verified. Admitting dx: AMS, UTI PCP: Russell Shannon Specialists: Miky (Oncology), Ani (Oncology) Preferred Pharmacy: [facility] Insurance: [employer], [employer] Prescription Benefit: Yes LNOK: Alcides (Son), Shaista (DIL) Living Arrangements: Pt lives alone in a 2 story home with a FFSU and 2 total steps to enter ADLs/IADLs: Alcides states that the pt is indep with ambulation but that the pt has difficultly with hygiene and housekeeping. Alcides states that he hired a pvt duty aide for the pt but the pt did not like the service and therefor it was revoked. Transportation: Son, [employer] DME: Access to a cane HHC/SNF: Denies hx of skilled HHC or SNF Pt?s goal: TBD Plan: TBD. See hospitalist note. Pt has a hx of breast cancer with new suspicious findings noted on recent imaging. At this time, the pt's son states that he is unsure how he would like to go about pursuing the findings. Pt son would like to discuss these findings with the doctor first. Anticipate being able to solidify DC planning subsequently. At this time, the son denies further questions or concerns from this senior technical writer. Report given to IGNACIA MINA CM. Ale Barrera RN, CM
[2024-10-19 14:20] VITALS: BP 157/52; PULSE 58; RESP 16; TEMP 36.3; O2SAT 92
[2024-10-19 21:39] VITALS: O2SAT 86
[2024-10-19 21:41] VITALS: BP 131/56; PULSE 58; RESP 20; TEMP 36.8; O2SAT 94
[2024-10-19] MEDS: Azithromycin 500 MG in 0.9% Normal Saline (250mL Bag) 250 ML 255 MG IV (22:27)
[2024-10-20 04:12] VITALS: BP 134/55; PULSE 52; RESP 16; TEMP 36.6; O2SAT 96
[2024-10-20 07:17] VITALS: O2SAT 94
[2024-10-20 08:11] VITALS: BP 126/45; PULSE 60; RESP 16; TEMP 36.6; O2SAT 92
[2024-10-20] MEDS: Memantine Hydrochloride 5 MG Tablet PO ×2 (08:15→20:31)
--- NOTE | 2024-10-20 08:44 | PCM.PN.HOSP ---
Subjective Subjective Doing well, no issues overnight Objective Data Objective Data Vital Signs: Vital Signs Temp Pulse Resp BP Pulse Ox O2 Del Method O2 Flow Rate 97.9 F 60 16 126/45 H 92 Room Air 2 10/20/24 08:11 10/20/24 08:11 10/20/24 08:11 10/20/24 08:11 10/20/24 08:11 10/20/24 08:11 10/20/24 07:17 Oxygen Flow Rate (L/min) 2 Oxygen Delivery Method Room Air Weight: 86 lb 2 oz Body Mass Index (BMI) 14.3 Intake & Output: Intake and Output for Last 24 Hours 10/19/24 10/20/24 10/21/24 03:59 03:59 03:59 Intake Total 300 / 300 1999.5 Balance 300 / 300 Medical Nutrition Assessment Dietitian: Malnutrition Criteria Met Start: 10/19/24 13:25 Freq: Status: Active Protocol: Document 10/19/24 13:25 SLA (Rec: 10/19/24 13:25 SLA [id number]) Nutrition Malnutrition Evidence of Yes Malnutrition Exists Malnutrition (severe Chronic ): Evidenced By Suboptimal Energy Intake (Severe),Weight Loss (Severe), Physical Changes (Severe) Clinical Problem Chronic Disease or Condition Related Malnutrition Etiology related to cancer and inadequate energy intake Signs/Symptoms as evidenced by po intake meeting <75% of est nutritional needs, BMI 14.3 and fat loss/muscle wasting throughout body. Status Active Problem Recommendation Dietitian Will continue liberal regular diet as ordered Recommendations/ Will order fortified foods w/ meals as able/ magic cup Changes w/ lunch and dinner for increased nutrition if consumed Will order 4 oz ensure plus high protein 4x/day w/ medpass for increased nutrition if consumed Rec consider appetite stimulant to help encourage increased po intake of meals and ONS If po intake fails to improve, may need to consider supplemental nutrition support, if in accordance w/ pt/ family wishes. Lab / Micro Data 10/19/24 05:46 10/19/24 05:46 Physical Exam Narrative General: Alert, Oriented x1-2, Cooperative, No apparent distress HEENT: Atraumatic, PERRLA, EOMI, Normocephalic Oral: Moist Mucosa Neck: Supple, No JVD Lungs: Diminished, Normal air movement, No rhonchi, No wheeze, No rales Cardiovascular: Regular rate, Regular Rhythm, Normal S1, Normal S2, No murmurs Abdomen: Soft, Non Tender, Non-Distended, No Hepato-splenomegaly Extremities: No edema, Capillary Refill Less than 3 Seconds Skin: Multiple skin lesions, 1 on her scalp consistent with a basal cell carcinoma Musculoskeletal: No Tenderness to Palpation of Joints or Extremities Neurological: No focal neurological deficits, moves all extremities Psych/Mental Status: Normal Affect, Appropriate Assessment & Plan Assessment/Plan (1) UTI (urinary tract infection): PLAN: Plan 1. Acute metabolic encephalopathy secondary to UTI in the setting of chronic dementia ? Urine analysis looks very positive for UTI however no urine culture was sent and cannot be sent because the original sample was disposed of by lab ? Continue with Rocephin and azithromycin, there was concern for possibility of pneumonia given the productive cough ? Continue with her home medications for her dementia 2. Basal cell carcinoma as well as breast cancer ? Underwent palliative radiation last year for her breast cancer ? At the time she had a fungating mass on the right breast that was reduced in size ? She does have suspicious findings on her chest x-ray consistent with her breast cancer given her dementia will discuss with family if they would like to proceed with further investigation ? They had elected in February to observe her breast cancer and forego any new treatments 3. Hypothyroidism ? Stable ? Continue with Synthroid 4. Essential hypertension ? Can restart losartan tomorrow ? Renal functions back to baseline 5. Anxiety/depression ? Stable ? Continue with her home medications DVT: SCDs Charges/Coding Visit Charges Inpatient E&M: 83288 Subs Hosp L2
--- NOTE | 2024-10-20 09:34 | DCINST_ITS ---
Discharge Instructions DC O2, CPAP, BIPAP needs Home O2 Discharge instructions: No Dressing / Incision Discharge Activity: Return to Normal Activity Dressing / Incision Call your doctor if you observe: Fever of 101 or Higher, Shortness of breath, Dizziness, Fainting spells, Swelling in the ankles, Chest pain and Increased palpitations (irregular heartbeat) Follow Up Care Test Results: Test results from this visit will be discussed in further detail at your follow- up appointment, if applicable. Discharge Plan Admission Admit Date/Time: 10/18/24 20:30 Attending Provider: Onel Tenorio Primary Care Provider: Russell Shannon Consulting Providers: Oksana Fortune Instructions Additional Instructions / Restrictions: Follow-up with your primary care doctor to monitor your kidney function Discharge Orders/Prescriptions Prescriptions: New cefdinir 300 mg capsule 300 mg PO BID Qty: 10 0RF azithromycin 500 mg tablet 500 mg PO DAILY 2 Days Qty: 2 0RF Continued memantine 5 mg tablet 5 mg PO BID donepezil 10 mg tablet 10 mg PO DAILY levothyroxine 100 mcg tablet 50 mcg PO DAILY Patient Comments: thyroid medication Rx Instructions: Take 2 Doses on Saturday losartan 25 mg tablet 100 mg PO QHS Patient Comments: blood pressure levothyroxine 50 mcg Capsule 100 mcg PO IGNACIO vitamin K26-neiis acid 500-400 mcg Tablet 1 tab PO DAILY propranolol 60 MG capsule,extended release 24 hr 60 mg PO QHS Patient Comments: heart/blood pressure levothyroxine 75 mcg tablet 75 mcg PO DAILY losartan 100 mg tablet 100 mg PO DAILY sertraline 50 mg tablet 50 mg PO DAILY Referrals / Follow Up: Russell Shannon DO [Primary Care Provider] - Within 1 Week Disposition Disposition (needs filled in before D/C Order can be placed): Home, Self Care
--- NOTE | 2024-10-20 11:37 | PHA.DC.MR.R ---
Pharmacy [facility] Reconciliation Pharmacy Service has performed discharge medication reconciliation for this patient. Attempted to intellectual property counsel. Patient's call light was on when I walked to the room. Patient saw me and asked if i could help her. When this [facility] asked what was going on she said she didn't know what she should be doing and she was very confused. This [facility] ED notified patient's nurse who said this is normal for the patient and she has been confused throughout her hospitalization. Did not intellectual property counsel. The patient's discharge medication list was reviewed for discrepancies and discrepancies were resolved. Medications at Discharge Home Medications levothyroxine 100 mcg tablet 50 mcg PO DAILY 03/07/21 losartan 25 mg tablet 100 mg PO QHS 03/07/21 levothyroxine 50 mcg capsule 100 mcg PO IGNACIO 03/10/21 propranolol 60 mg capsule,24 hr,extended release 60 mg PO QHS 03/10/21 vitamin B12 500 mcg-folic acid 400 mcg tablet 1 tab PO DAILY 03/10/21 donepezil 10 mg tablet 10 mg PO DAILY 09/17/23 memantine 5 mg tablet 5 mg PO BID 09/17/23 levothyroxine 75 mcg tablet 75 mcg PO DAILY 10/18/24 losartan 100 mg tablet 100 mg PO DAILY 10/18/24 sertraline 50 mg tablet 50 mg PO DAILY 10/18/24 azithromycin 500 mg tablet 500 mg PO DAILY 2 days #2 tabs 10/20/24 cefdinir 300 mg capsule 300 mg PO BID #10 caps 10/20/24
--- NOTE | 2024-10-20 12:58 | CASEMGMT ---
Addendum entered by Erin Rowan 10/20/24 16:19: Pt sons, jem and Sunny, met with palliative ROLLS MILL OPERATOR. Plan is to d/c with [facility] while pt d/c to SNF. Pt family choices are [facility], and [facility]. [facility] notified of referral request. SW remains available to follow. MARTHA York Original Note: Social Work- SW met with pt to check-in and offer support. SW introduced self and role; pt agreeable to meet. Pt reported that she did not know where she was, that it was unusual and very different. With contextual clues, pt was able to decipher she was at a dr/hospital. Pt asked if they would bring food to here here and asked if her water was hers and to drink. Pt asked how to use the restroom and what to do if she wanted to get into bed. Pt repeatedly reported feeling scared and shaky. Pt cold only identify that it was different and very unusual as the source of being scared. Pt reported that she did not know how she would go home. Pt reports she does not feel scared at home, but does feel shaky. Pt reports that her son is very busy and does not have time to check on her daily. Pt reports that she does not have anyone to check in on her daily. SW called pt dtr in law Shaista, who had called in, concerned that a prescription was called in to [facility]. LUCERO introduced self and role. Shaista reports that no one has communicated with she or pt son regarding d/c planning. Shaista reports that they do not feel safe with pt d/c and would like a SNF. Shaista reports that they spoke with hospitalist yesterday and indicated that whatever pt needed, they were agreeable to. Shaista reports that she and /pt son both believe that pt may not ever be able to return home due to decline. LUCERO provided education on palliative care and offered consult to accompany discussions on SNF placement. Shaista agreeable. Shaista reports that she will update /pt son, as he works until 2-2:30 and is not available by phone as he is driving truck. Shaista agreeable to SNF list texted to pt son. LUCERO updated hospitalist on SNF request and palliative consult request. A list of SNF providers including quality and resource use data and consistent with the patient?s preferred geographic region, medical needs, and insurance network were provided via the [facility] Guide Link via text to pt son. Consult placed for palliative ROLLS MILL OPERATOR. SW remains available to follow. MARTHA York
[2024-10-20 12:59] VITALS: O2SAT 90; O2SAT 93
--- NOTE | 2024-10-20 13:40 | PCM.CONS.P ---
[facility] Medical History Basal cell carcinoma of scalp Wears glasses Cancer Forgetfulness Anxiety Thyroid disease Arthritis Difficulty swallowing Former smoker Hypertension History of echocardiogram History of stress test Former smoker Neoplasm of skin of scalp Home Medications ?Medication ?Instructions ?Recorded ?Last Taken ?Type levothyroxine 100 mcg tablet 50 mcg PO DAILY 03/07/21 03/13/21 History losartan 25 mg tablet 100 mg PO QHS 03/07/21 Unknown History levothyroxine 50 mcg capsule 100 mcg PO IGNACIO 03/10/21 Unknown History propranolol 60 mg capsule,24 60 mg PO QHS 03/10/21 Unknown History hr,extended release vitamin B12 500 mcg-folic acid 400 1 tab PO DAILY 03/10/21 Unknown History mcg tablet donepezil 10 mg tablet 10 mg PO DAILY 09/17/23 Unknown History memantine 5 mg tablet 5 mg PO BID 09/17/23 Unknown History levothyroxine 75 mcg tablet 75 mcg PO DAILY 10/18/24 Unknown History losartan 100 mg tablet 100 mg PO DAILY 10/18/24 Unknown History sertraline 50 mg tablet 50 mg PO DAILY 10/18/24 Unknown History azithromycin 500 mg tablet 500 mg PO DAILY 2 days #2 tabs 10/20/24 Unknown Rx cefdinir 300 mg capsule 300 mg PO BID #10 caps 10/20/24 Unknown Rx Allergy/AdvReac Type Severity Reaction Status Date / Time codeine Allergy Other Verified 10/18/24 17:16 simvastatin Allergy Other Verified 10/18/24 17:16 Family History Mother Hypertension CVA (cerebral vascular accident) Other No pertinent family history Surgical History History of basal cell carcinoma excision History of local excision of skin lesion History of cystoscopy Hx of submandibular gland removal Hx of tubal ligation Hx of total thyroidectomy History of thyroid surgery Social History housing: house Smoking Status: Former smoker alcohol intake: current alcohol intake frequency: holidays/special occasions only details: 1 glass of wine substance use type: does not use additional social history: Does Not Take Aspirin Does Not Take Ibuprofen Homelessness:: Sheltered ROS Review of Systems ROS Unobtainable: due to mental status and other Details: Limited related to dementia. Constitutional Constitutional: Reports anorexia and other Details: Patient states that she does not want to eat. This is apparently not uncommon for her while at home either. Eyes Eyes: Reports systems reviewed and no addt'l complaints, except as documented ENT HEENT: Reports systems reviewed and no addt'l complaints, except as documented Cardiovascular Cardiovascular: Reports systems reviewed and no addt'l complaints, except as documented Respiratory/Chest Respiratory/Chest: Reports dyspnea and other Details: Slightly dyspneic especially on exertion. Gastrointestinal Gastrointestinal: Reports systems reviewed and no addt'l complaints, except as documented Genitourinary Genitourinary: Reports systems reviewed and no addt'l complaints, except as documented Musculoskeletal Musculoskeletal: Reports systems reviewed and no addt'l complaints, except as documented Integumentary Integumentary: Reports wounds and other Details: this thing on my head Neurologic Neurologic: Reports confusion Psychiatric Psychiatric: Reports anxiety and memory loss Allergic/Immunologic Allergic/Immunologic: Reports systems reviewed and no addt'l complaints, except as documented Physical Exam Const alert Constitutional Narrative: Oriented to person only. HEENT HEENT Narrative: Patient has a large wound to the top of her head approximately 5 cm in circumference. This is related to basal cell carcinoma. She also has a large growth to the front of her head which extends approximately 3 cm outward. Neck General: trachea midline Resp Auscultation: wheezes and diminished lung sounds Cardio regular rate Peripheral Pulses: pulses 2+ throughout GI normal to inspection, nondistended, normoactive bowel sounds Extremity normal capillary refill Skin Skin Narrative: Patient has circumferential wound to the top of her head with dressing in place. She also has a growth to the front of her head most likely basal cell carcinoma. Neuro Neuro Narrative: Patient is alert and oriented to person only. She does not know the name of the town that she is in but she cannot tell me the building that she was in there could she tell me her birthday, year or date. Speech: speech normal Psych Psych Narrative: Patient is very guarded and suspicious. Mood & Affect: flat affect Charges/Coding Palliative Care Palliative Care: 78125 New Pt Consult 80+ min HPI Current admission Current Code Status: FULL CODE Associated Diagnosis: DEMENTIA, BREAST CANCER, LUNG MASS, BASAL CELL OF THE SCALP Consult Data Date of Consult: 10/20/24 Location of consult: [facility] Reason for referral: GOALS OF CARE Referral source: Palliative care diagnosis (Summary list): DEMENTIA, BREAST CA, LUNG MASS BASAL OF THE SCALP Palliative care services/treatment (Accepted, as consult): ACCEPTED Case discussed with referring provider: GOALS OF CARE VIA TEXT as well as CODE STATUS change. HPI Narrative HPI Narrative: 10/20/24: I do meeting with the patient at bedside reviewed documentation, labs and radiological studies. I then met with the patient, Shagufta at bedside. I noted her to be significantly confused. She was alert to person and place as being [place] but she was unsure of where she was in [place]. She was unable to tell me the date, day or the year. She was unable to tell me her . She state that I dont know what it happening. I am very confused. She acknowledged that she was anxious. During my physical exam and found that she had a large wound to the top of her head covered with a bandage. Per documentation this is also cell carcinoma. I also noted a large growth to the frontal area of her head. Per documentation the patient did have palliative radiation for stage IIIb grade 2 breast cancer. She did present to the emergency department with increased confusion and shortness of breath. She was found to have a UTI which she has been treated with antibiotics. She was also to have 2 large masses in her lungs. This is thought to be metastatic in nature. When I did had a family meeting with the patient's son, Mir. They endorse that they did not want any her measures with her mother and have transitioned her to a DNR DNI. They also stated that they are interested in the mother's comfort and would like to transition her to hospice. We then discussed what this would look like for him going forward and I did state that they were unable to provide 24/7 care in the home thus they would like her to go to [facility] facility. They did state that they are unsure if her insurance will cover inpatient stay. After weighing the benefits versus burdens of hospice versus palliative care they have decided to transition her to palliative care while they await guidance from insurance and social work for options going forward. I did provide the brothers with choices for palliative care services in which they decided [facility]. I did reach out to the nurse practitioner with [facility] in which she stated that she would contact the son, Nahun to set up a family meeting for tomorrow. Did update his management about family decisions. They also provided us with 3 options that they would like to investigate from a SNF option. All questions were answered. Palliative care will continue to follow for support during hospitalization. I did provide a warm handoff to the palliative care nurse practitioner at [facility]. HPI Narrative per hospitalist: SHAGUFTA CHAVES, is a 79-year-old female history of hypertension, breast cancer, memory impairment, hypothyroidism, basal cell carcinoma of the scalp who presented [facility] ED 10/18/2024 due to some confusion on top of her usual memory problems and she complained of some shortness of breath today. In the ED patient afebrile, heart rate 56 and blood pressure 139/69, respiratory rate 14 and pulse ox 97% on room air. CBC with white count 8.6, hemoglobin 12.3, CMP with a BUN of 36 and a creatinine of 1.32, BUN of 36 and creatinine 1.32, glucose 104. Troponin 29, brain CT with no intracranial hemorrhage. Chest x-ray demonstrated extensive pulmonary opacities worrisome for malignancy/metastatic disease. UA obtained which was suspicious for infection. Patient given antibiotics and hospitalist contacted for admission. Patient evaluated at bedside with son present, son provided most of the history as patient is confused and has a difficult time answering questions, she has had difficulties with her memory for 3 years however has been worse over the past 3 to 4 days and she has been increasingly very tired and fatigued recently, shortness of breath she only complained of today without cough or fever. Has some constant sinus problems but nothing new, denies chest pain or diarrhea or abdominal pain. She is unsure if she has had any urinary changes Palliative Assessment Advanced Directive - Current Admission Advance Directive: Advance Directive ON ADMISSION - REFERENCE Do you have a Healthcare Yes 10/18/24 21:01 Living Will? Is a Healthcare Living Will Yes, It is scanned in 10/18/24 21:01 present in the medical record? Do you have a Healthcare Power Yes 10/18/24 21:01 of Putty Glazer? Is a Healthcare Power of Yes, paper copy provided 10/18/24 21:01 Putty Glazer present in the medical rec Do You Want Additional Declined 10/18/24 21:01 Information on Advanced Directives or Healthcare Proxy/DPOA comments: SON Alcides [phone]. Psychosocial/Spiritual Information Living situation/Marital status: lives alone Geographic location: [place] Supports: family Roman Catholic/Swetha or spiritual preference: Anglican Spiritual distress: Denies Prior functional status: Patient was living independently although her son states that she was having difficulty with meal prep and bathing. Assistive devices at home: None Cultrual issues: none Information about the patient as a person: Patient enjoys spending time with family. Symptoms Palliative performance scale: 60 Palliative prognostic index: 10.0 (if the PPI is greater than 6.0, survival is less than 3 weeks.) Dyspnea symptoms: Moderate Constipation symptoms: None Anorexia symptoms: Severe Cough symptoms: Mild Insomnia symptoms: None Diarrhea symptoms: None Fatigue symptoms: Mild Weakness symptoms: Mild Confusion symptoms: Severe Side Effects & Interventions: Limited as the patient is significantly confused. Objective Data Objective Data Vital Signs: Vital Signs Temp Pulse Resp BP Pulse Ox O2 Del Method O2 Flow Rate 97.9 F 60 16 126/45 H 92 Room Air 2 10/20/24 08:11 10/20/24 08:11 10/20/24 08:11 10/20/24 08:11 10/20/24 08:11 10/20/24 10:00 10/20/24 07:17 Oxygen Flow Rate (L/min) 2 Oxygen Delivery Method Room Air Weight: 86 lb 2 oz Body Mass Index (BMI) 14.3 Intake & Output: Intake and Output for Last 24 Hours 10/18/24 10/19/24 10/20/24 23:59 23:59 23:59 Intake Total 300 / 300 1999.1999.5 240 / 240 Balance 300 / 300 1999. 240 / 240 Medical Nutrition Assessment Dietitian: Malnutrition Criteria Met Start: 10/19/24 13:25 Freq: Status: Active Protocol: Document 10/19/24 13:25 JUAN JOSE (Rec: 10/19/24 13:25 JUAN JOSE [id number]) Nutrition Malnutrition Evidence of Yes Malnutrition Exists Malnutrition (severe Chronic ): Evidenced By Suboptimal Energy Intake (Severe),Weight Loss (Severe), Physical Changes (Severe) Clinical Problem Chronic Disease or Condition Related Malnutrition Etiology related to cancer and inadequate energy intake Signs/Symptoms as evidenced by po intake meeting <75% of est nutritional needs, BMI 14.3 and fat loss/muscle wasting throughout body. Status Active Problem Recommendation Dietitian Will continue liberal regular diet as ordered Recommendations/ Will order fortified foods w/ meals as able/ magic cup Changes w/ lunch and dinner for increased nutrition if consumed Will order 4 oz ensure plus high protein 4x/day w/ medpass for increased nutrition if consumed Rec consider appetite stimulant to help encourage increased po intake of meals and ONS If po intake fails to improve, may need to consider supplemental nutrition support, if in accordance w/ pt/ family wishes. Lab / Micro Data Attestation: I reviewed the patient's lab results. 10/19/24 05:46 10/19/24 05:46 Social Homelessness:: Sheltered Impressions & Recommendations Patient & Family Issues discussed with the patient and family: CODE STATUS and palliative versus hospice. Patient goal: Patient was unable to participate in meaningful conversation Family goal: Family is wanting their mother to be comfortable although they understand that they have to negotiate finances prior to transitioning to hospice. Ethical & Legal Ethical and legal: Based on the patient's cognition, all legal decisions will be deferred to the patient's sons Alcides and Sunny. Impressions Impressions: Patient would qualify for hospice. Recommentation Palliative recommendations: Although patient would qualify for hospice, patient would most likely benefit most from palliative care at this time. Encouter Achieved as a result of this Palliative Care Encounter: [[id number], [phone], [phone] ] minutes were spent in total for this visit which consisted, primarily of counseling and education dealing with the complex and emotionally intense issues of symptom management and palliative care in the setting of serious and potentially life-threatening illness. Review of documentation, labs and radiological studies. ?Patient/family had the opportunity to ask questions Plan (1) Shortness of breath: PLAN: Medical management per primary team (2) LBBB (left bundle branch block): PLAN: Medical management per primary team (3) Lung mass: PLAN: Medical management per primary team (4) Palliative care encounter: PLAN: Family is agreeable to the patient transitioning to SNF with palliative care being provided by [facility]. Plan is for the patient to eventually transition to hospice care.
[2024-10-20 14:30] VITALS: BP 156/58; PULSE 62; RESP 17; TEMP 36.6; O2SAT 94
--- NOTE | 2024-10-20 16:33 | CASEMGMT ---
Discharge Planning Referral sent to [facility]. Mari Snider DC Planning Asst.
[2024-10-20] MEDS: 0.9% Saline Lock 10 ML Syringe IV (20:29)
[2024-10-20] MEDS: MELATONIN 10 MG TABLET PO (20:29)
[2024-10-20] MEDS: Ensure Plus High Protein 120 ML LIQUID PO (21:00)
[2024-10-20] MEDS: Azithromycin 500 MG in 0.9% Normal Saline (250mL Bag) 250 ML 255 MG IV (21:06)
[2024-10-20 21:14] VITALS: BP 151/48; PULSE 54; RESP 16; TEMP 36.8; O2SAT 95
[2024-10-21 05:41] VITALS: BP 153/68; PULSE 50; RESP 16; TEMP 36.2; O2SAT 95
[2024-10-21 06:04] LABS: Hematocrit 39.3 % (37-47); Hemoglobin 12.4 g/dL (12.0-15.0); Immature Granulocytes Count 0.060 X10^3/uL (0.0-0.0); Mean Corp Hgb Conc 31.6 g/dL (32-36); Mean Corpuscular Volume 88.7 fL (81-99); Mean Platelet Vol. 9.2 fl (6.2-12.0); NRBC Flagged by Analyzer 0 % (0-5); Platelet Count 264 K/mm3 (150-450); RBC Distribution Width CV 15.9 % (11.6-14.6); RBC Distribution Width SD 50.0 fl (35.1-43.9); Red Blood Count 4.43 M/mm3 (4.2-5.4); White Blood Count 6.0 K/mm3 (4.4-11.0)
[2024-10-21 07:16] LABS: Anion Gap 8 (5-15); BUN 16 mg/dL (4-19); BUN/Creat Ratio 16.8 RATIO (10-20); Calcium,Total 9.2 mg/dL (7.6-11.0); Carbon Dioxide 23.9 mmol/L (21.0-32.0); Chloride 109 mmol/L (98-108); Estimated Creatinine Clearance 28.64 ml/min (50-250); Glucose 89 mg/dL (70-99); Potassium 3.6 mmol/L (3.3-5.1)
[2024-10-21 08:01] VITALS: O2SAT 94
--- NOTE | 2024-10-21 08:38 | PCM.TXEXTCAR ---
Diet Diet Order/Speech Therapy: INPATIENT Hospital Diet / Speech Therapy Order(s) 10/18/24 23:25 Diet: Regular - General Food consistency:: Regular Liquid Consistency:: Regular/Thin Type of Dietary Supplement:: Magic Cup Dessert Diet Comments: fortified foods w/ meals as able Routine Orders/Code Status Routine Lab Work: CBC and BMP Code Status: DNRCC-A DC O2, CPAP, BIPAP needs Home O2 Discharge instructions: No Wound(s) top of head: Wound Type: skin ca left outer ankle: Wound Type: scabbed area right inner ankle: Wound Type: scabbed area left lower leg: Wound Type: scab left upper lip: Wound Type: ulcer/skin cancer FOREHEAD: Wound Type: SKIN CANCER Therapies Physical Therapy: Eval and Treat Occupational Therapy: Eval and Treat Problem/Diagnosis (1) Shortness of breath: Status: Acute Code(s): R06.02 - Shortness of breath (2) LBBB (left bundle branch block): Status: Acute Code(s): I44.7 - Left bundle-branch block, unspecified (3) Lung mass: Status: Acute Code(s): R91.8 - Other nonspecific abnormal finding of lung field (4) Palliative care encounter: Status: Acute Code(s): Z51.5 - Encounter for palliative care Plan 1. Acute metabolic encephalopathy secondary to UTI in the setting of chronic dementia ? Urine analysis looks very positive for UTI however no urine culture was sent ? Ordered urine culture today however the laboratory has already thrown out the urine sample from admission ? She is already received multiple doses of antibiotics so at this point urine culture would be useless from a new sample ? Continue with Rocephin and azithromycin, there was concern for possibility of pneumonia given the productive cough ? Continue with her home medications for her dementia 2. Basal cell carcinoma as well as breast cancer ? Underwent palliative radiation last year for her breast cancer ? At the time she had a fungating mass on the right breast that was reduced in size ? She does have suspicious findings on her chest x-ray consistent with her breast cancer given her dementia will discuss with family if they would like to proceed with further investigation ? They had not elected in February to observe her breast cancer and forego any new treatments 3. Hypothyroidism ? Stable ? Continue with Synthroid 4. Essential hypertension ? Can restart losartan tomorrow ? Renal functions back to baseline 5. Anxiety/depression ? Stable ? Continue with her home medications DVT: SCDs Allergies/Procedures Done in Hospital Allergies codeine Allergy (Verified 10/18/24 17:16) Other simvastatin Allergy (Verified 10/18/24 17:16) Other Procedures: None Type of Care/Length of Stay Estimated LOS: Convalescent Care Less Than 30 days Type of Care Needed: Skilled Rehab Potential: Good Prognosis: Good Additional Orders/Day of Discharge Day of Discharge: 10/21/24 Dietary and Speech Recommendations Dietitian Recommendations/Changes: Will continue liberal regular diet as ordered Will order fortified foods w/ meals as able/ magic cup w/ lunch and dinner for increased nutrition if consumed Will order 4 oz ensure plus high protein 4x/day w/ medpass for increased nutrition if consumed Rec consider appetite stimulant to help encourage increased po intake of meals and ONS If po intake fails to improve, may need to consider supplemental nutrition support, if in accordance w/ pt/family wishes. Discharge Plan Admission Admit Date/Time: 10/18/24 20:30 Attending Provider: Onel Tenorio Primary Care Provider: Russell Shannon Consulting Providers: Oksana Fortune; Ivon Unger Instructions Additional Instructions / Restrictions: Follow-up with your primary care doctor to monitor your kidney function Discharge Orders/Prescriptions Prescriptions: New cefdinir 300 mg capsule 300 mg PO BID Qty: 10 0RF azithromycin 500 mg tablet 500 mg PO DAILY 2 Days Qty: 2 0RF Continued memantine 5 mg tablet 5 mg PO BID donepezil 10 mg tablet 10 mg PO DAILY levothyroxine 100 mcg tablet 50 mcg PO DAILY Patient Comments: thyroid medication Rx Instructions: Take 2 Doses on Saturday losartan 25 mg tablet 100 mg PO QHS Patient Comments: blood pressure levothyroxine 50 mcg Capsule 100 mcg PO IGNACIO vitamin [id number] acid 500-400 mcg Tablet 1 tab PO DAILY propranolol 60 MG capsule,extended release 24 hr 60 mg PO QHS Patient Comments: heart/blood pressure levothyroxine 75 mcg tablet 75 mcg PO DAILY losartan 100 mg tablet 100 mg PO DAILY sertraline 50 mg tablet 50 mg PO DAILY Referrals / Follow Up: Russell Shannon DO [Primary Care Provider] - Within 1 Week Disposition Disposition (needs filled in before D/C Order can be placed): [facility]
[2024-10-21 09:02] VITALS: BP 148/40; PULSE 55; RESP 16; TEMP 36.6; O2SAT 94
--- NOTE | 2024-10-21 09:58 | CASEMGMT ---
Addendum entered by Mari Snider 10/21/24 10:24: [facility] d/t no payor source. SW updated. Mari Snider DC Planning Asst. Original Note: Discharge Planning Referral sent to Marilyn at [facility]. Mair Snider DC Planning Asst.
--- NOTE | 2024-10-21 10:24 | CASEMGMT ---
Addendum entered by Mari Snider 10/22/24 09:45: Pt has chosen another snf. [facility] asked to cancel referral. Mari Snider DC Planning Asst. Original Note: Discharge Planning Referral sent to [facility]. Mari Snider DC Planning Asst.
--- NOTE | 2024-10-21 10:42 | CASEMGMT ---
Addendum entered by Erin Rowan 10/21/24 16:45: [facility] is completing an on-site visit with pt and pt son. SW remains available to follow. LUCERO met with pt son, Alcides, following on-site visit from [facility]. Alcides reports that he spoke with his friend who works at [facility] and Alcides recognizes that pt has too many resources to qualify for LTC [facility]. Alcides reports that they will private pay SNF. Alcides requests SNF list with pricing and information on what facilities have dementia units. SW provided printable of information requested. Pt sons will look over list and make selections. SW remains available to follow. MARTHA York Original Note: Social Work- SW met with pt and pt son Alcides to discuss referral status. LUCERO updated that [facility] declined, as did the [facility]. SW discussed parameters for [facility] and provided education on [facility], skilled care versus long-term care. Pt son reports that pt has some resources and he needs to get things in order. LUCERO provided education that pt is medically ready and we need to continue to move forward with discharge planning. Referral to [facility] is pending. Pt son reports that he recognizes pt needs placement, as pt was scared all the time at home even with the doors locked and was not doing hygiene or taking care of self. Pt son reports that he hopes that a stay at SNF will help get pt on schedule. Pt son reports that he would like pt to remain under palliative care at SNF at this time as well. SW will remain available to follow and provide updates on referrals. ULCERO updated [facility]. LUCERO collaborated with hospitalist. MARTHA York
[2024-10-21] MEDS: Ensure Plus High Protein 120 ML LIQUID PO ×3 (11:07→20:41)
[2024-10-21] MEDS: Memantine Hydrochloride 5 MG Tablet PO ×2 (11:08→20:42)
--- NOTE | 2024-10-21 15:50 | PHA.DC.MR.R ---
Pharmacy [place] Med Reconciliation Pharmacy Service has performed discharge medication reconciliation for this patient. The patient's discharge medication list was reviewed for discrepancies and discrepancies were resolved. New medications at discharge: cefdinir 300 mg PO BID x 5 days and azithromycin 500 mg PO daily x2 days Medications at Discharge Home Medications levothyroxine 100 mcg tablet 50 mcg PO DAILY 03/07/21 losartan 25 mg tablet 100 mg PO QHS 03/07/21 levothyroxine 50 mcg capsule 100 mcg PO IGNACIO 03/10/21 propranolol 60 mg capsule,24 hr,extended release 60 mg PO QHS 03/10/21 vitamin B12 500 mcg-folic acid 400 mcg tablet 1 tab PO DAILY 03/10/21 donepezil 10 mg tablet 10 mg PO DAILY 09/17/23 memantine 5 mg tablet 5 mg PO BID 09/17/23 levothyroxine 75 mcg tablet 75 mcg PO DAILY 10/18/24 losartan 100 mg tablet 100 mg PO DAILY 10/18/24 sertraline 50 mg tablet 50 mg PO DAILY 10/18/24 azithromycin 500 mg tablet 500 mg PO DAILY 2 days #2 tabs 10/20/24 cefdinir 300 mg capsule 300 mg PO BID #10 caps 10/20/24
--- NOTE | 2024-10-21 16:21 | PN.HOSP_ITS ---
Subjective Subjective Doing well, no issues overnight Objective Data Objective Data Vital Signs: Vital Signs Temp Pulse Resp BP Pulse Ox O2 Del Method O2 Flow Rate 97.8 F 55 L 16 148/40 H 94 Room Air 2 10/21/24 09:02 10/21/24 09:02 10/21/24 09:02 10/21/24 09:02 10/21/24 09:02 10/21/24 09:04 10/21/24 08:01 Oxygen Flow Rate (L/min) 2 Oxygen Delivery Method Room Air Weight: 86 lb 2 oz Body Mass Index (BMI) 14.3 Intake & Output: Intake and Output for Last 24 Hours 10/20/24 10/21/24 10/22/24 03:59 03:59 03:59 Intake Total 545 / 545 150 / 150 Balance 545 / 545 150 / 150 Medical Nutrition Assessment Dietitian: Malnutrition Criteria Met Start: 10/19/24 13:25 Freq: Status: Active Protocol: Document 10/19/24 13:25 SLA (Rec: 10/19/24 13:25 SLA [id number]) Nutrition Malnutrition Evidence of Yes Malnutrition Exists Malnutrition (severe Chronic ): Evidenced By Suboptimal Energy Intake (Severe),Weight Loss (Severe), Physical Changes (Severe) Clinical Problem Chronic Disease or Condition Related Malnutrition Etiology related to cancer and inadequate energy intake Signs/Symptoms as evidenced by po intake meeting <75% of est nutritional needs, BMI 14.3 and fat loss/muscle wasting throughout body. Status Active Problem Recommendation Dietitian Will continue liberal regular diet as ordered Recommendations/ Will order fortified foods w/ meals as able/ magic cup Changes w/ lunch and dinner for increased nutrition if consumed Will order 4 oz ensure plus high protein 4x/day w/ medpass for increased nutrition if consumed Rec consider appetite stimulant to help encourage increased po intake of meals and ONS If po intake fails to improve, may need to consider supplemental nutrition support, if in accordance w/ pt/ family wishes. Lab / Micro Data 10/21/24 05:35 10/21/24 05:35 Labs: Laboratory Results - last 24 hr 10/21/24 05:35: WBC 6.0, RBC 4.43, Hgb 12.4, Hct 39.3, MCV 88.7, MCH 28.0, MCHC 31.6 L, RDW Std Deviation 50.0 H, RDW Coeff of Andrew 15.9 H, Plt Count 264, MPV 9.2, Immature Gran % (Auto) 1.000 H, Neut % (Auto) 72.3 H, Lymph % (Auto) 14.6 L , [place] % (Auto) 8.3, Eos % (Auto) 2.8, Baso % (Auto) 1.0, Absolute Neuts (auto) 4.4, Absolute Lymphs (auto) 0.88, Nucleated RBC % 0, Sodium 142, Potassium 3.6, Chloride 109 H, Carbon Dioxide 23.9, Anion Gap 8, BUN 16, Creatinine 0.95, Estim Creat Clear Calc 28.64 L, Est GFR (MDRD) Non-Af 60, BUN/Creatinine Ratio 16.8, Glucose 89, Calcium 9.2 Social Homelessness:: Sheltered Physical Exam Narrative General: Alert, Oriented x1-2, Cooperative, No apparent distress HEENT: Atraumatic, PERRLA, EOMI, Normocephalic Oral: Moist Mucosa Neck: Supple, No JVD Lungs: Diminished, Normal air movement, No rhonchi, No wheeze, No rales Cardiovascular: Regular rate, Regular Rhythm, Normal S1, Normal S2, No murmurs Abdomen: Soft, Non Tender, Non-Distended, No Hepato-splenomegaly Extremities: No edema, Capillary Refill Less than 3 Seconds Skin: Multiple skin lesions, 1 on her scalp consistent with a basal cell carcinoma Musculoskeletal: No Tenderness to Palpation of Joints or Extremities Neurological: No focal neurological deficits, moves all extremities Psych/Mental Status: Normal Affect, Appropriate Assessment & Plan Assessment/Plan (1) Shortness of breath: (2) LBBB (left bundle branch block): (3) Lung mass: (4) Palliative care encounter: PLAN: Plan 1. Acute metabolic encephalopathy secondary to UTI in the setting of chronic dementia with possible bacterial pneumonia ? Urine analysis looks very positive for UTI however no urine culture was sent and cannot be sent because the original sample was disposed of by lab ? Continue with Rocephin and azithromycin, there was concern for possibility of pneumonia given the productive cough ? Continue with her home medications for her dementia 2. Basal cell carcinoma as well as breast cancer ? Underwent palliative radiation last year for her breast cancer ? At the time she had a fungating mass on the right breast that was reduced in size ? She does have suspicious findings on her chest x-ray consistent with her breast cancer given her dementia family does not want to be overly aggressive ? They had elected in February to observe her breast cancer and forego any new treatments 3. Hypothyroidism ? Stable ? Continue with Synthroid 4. Essential hypertension ?Continue with losartan ? Renal functions back to baseline 5. Anxiety/depression ? Stable ? Continue with her home medications DVT: SCDs Charges/Coding Visit Charges Inpatient E&M: 65864 Subs Hosp L2
[2024-10-21 17:20] VITALS: BP 157/58; PULSE 92; RESP 16; TEMP 36.8; O2SAT 92
[2024-10-21 20:29] VITALS: BP 156/53; PULSE 53; RESP 16; TEMP 36.6; O2SAT 93
[2024-10-21] MEDS: MELATONIN 10 MG TABLET PO (20:41)
[2024-10-21] MEDS: 0.9% Saline Lock 10 ML Syringe IV (20:41)
[2024-10-21] MEDS: Azithromycin 500 MG in 0.9% Normal Saline (250mL Bag) 250 ML 255 MG IV (21:54)
[2024-10-22 06:47] VITALS: BP 175/57; PULSE 57; RESP 16; TEMP 36.6; O2SAT 94
--- NOTE | 2024-10-22 08:53 | CASEMGMT ---
Addendum entered by Jimena Rosas 10/22/24 10:31: Social Work [facility] accepted pt, they would want $9000 upfront today, for 30 days. SW called son Alcides to let him know, he is agreeable for pt to go to [facility] today. Pt will go private pay, intermediate level of care. SW explained to son that [facility] is asking for $9000 today, he states he can bring over a check later, around 3:30pm. SW explained we will set up transport for around that time and let him know the time pt will go over. [facility] also agreeable for pt to go over, leaving here around 3:30pm, and son meeting pt there and paying [facility] at that time. Pt is to follow up w/[facility] also at d/c. Mari, d/c production planning supervisor, communicated this to [facility]. They are not in network but will work to get a contract. SW called [facility], faxed referral. SW let them know to follow up w/pt at [facility]. D/C production planning supervisor will set up the discharge later. Hospital exemption completed in the [facility] system. SW will continue to follow. KARISHMA Durbin Original Note: Social Work SW spoke w/pt's son Alcides this morning in the room. He would like a referral to [facility], he states would be easy for both he and pt's other son to visit. Additionally, he states is less expensive than some of the other facilities. SW explained will send the referral and let them know. SW sent referral in [facility] to [facility], will await response. KARISHMA Durbin
--- NOTE | 2024-10-22 09:06 | CASEMGMT ---
Discharge Planning [facility] has accepted and would require 30d up front ($300/d = $9000). SW updated. Mari Snider DC Planning Asst.
--- NOTE | 2024-10-22 09:34 | PCM.PN.HOSP ---
Subjective Subjective Son states she appears little bit better today and a little closer to her baseline Objective Data Objective Data Vital Signs: Vital Signs Temp Pulse Resp BP Pulse Ox O2 Del Method O2 Flow Rate 97.9 F 57 L 16 175/57 H 94 Room Air 2 10/22/24 06:47 10/22/24 06:47 10/22/24 06:47 10/22/24 06:47 10/22/24 06:47 10/22/24 08:54 10/21/24 20:29 Oxygen Flow Rate (L/min) 2 Oxygen Delivery Method Room Air Weight: 86 lb 2 oz Body Mass Index (BMI) 14.3 Intake & Output: Intake and Output for Last 24 Hours 10/21/24 10/22/24 10/23/24 03:59 03:59 03:59 Intake Total 545 / 545 955 / 955 50 / 50 Balance 545 / 545 955 / 955 50 / 50 Medical Nutrition Assessment Dietitian: Malnutrition Criteria Met Start: 10/19/24 13:25 Freq: Status: Active Protocol: Document 10/19/24 13:25 SLA (Rec: 10/19/24 13:25 SLA [id number]) Nutrition Malnutrition Evidence of Yes Malnutrition Exists Malnutrition (severe Chronic ): Evidenced By Suboptimal Energy Intake (Severe),Weight Loss (Severe), Physical Changes (Severe) Clinical Problem Chronic Disease or Condition Related Malnutrition Etiology related to cancer and inadequate energy intake Signs/Symptoms as evidenced by po intake meeting <75% of est nutritional needs, BMI 14.3 and fat loss/muscle wasting throughout body. Status Active Problem Recommendation Dietitian Will continue liberal regular diet as ordered Recommendations/ Will order fortified foods w/ meals as able/ magic cup Changes w/ lunch and dinner for increased nutrition if consumed Will order 4 oz ensure plus high protein 4x/day w/ medpass for increased nutrition if consumed Rec consider appetite stimulant to help encourage increased po intake of meals and ONS If po intake fails to improve, may need to consider supplemental nutrition support, if in accordance w/ pt/ family wishes. Lab / Micro Data 10/21/24 05:35 10/21/24 05:35 Social Homelessness:: Sheltered Physical Exam Narrative General: Alert, Oriented x1-2, Cooperative, No apparent distress HEENT: Atraumatic, PERRLA, EOMI, Normocephalic Oral: Moist Mucosa Neck: Supple, No JVD Lungs: Diminished, Normal air movement, No rhonchi, No wheeze, No rales Cardiovascular: Regular rate, Regular Rhythm, Normal S1, Normal S2, No murmurs Abdomen: Soft, Non Tender, Non-Distended, No Hepato-splenomegaly Extremities: No edema, Capillary Refill Less than 3 Seconds Skin: Multiple skin lesions, 1 on her scalp consistent with a basal cell carcinoma Musculoskeletal: No Tenderness to Palpation of Joints or Extremities Neurological: No focal neurological deficits, moves all extremities Psych/Mental Status: Normal Affect, Appropriate Assessment & Plan Assessment/Plan (1) Shortness of breath: (2) LBBB (left bundle branch block): (3) Lung mass: (4) Palliative care encounter: PLAN: Plan 1. Acute metabolic encephalopathy secondary to UTI in the setting of chronic dementia with possible bacterial pneumonia ? Urine analysis looks very positive for UTI however no urine culture was sent and cannot be sent because the original sample was disposed of by lab ? Continue with Rocephin and azithromycin, there was concern for possibility of pneumonia given the productive cough ? Continue with her home medications for her dementia 2. Basal cell carcinoma as well as breast cancer ? Underwent palliative radiation last year for her breast cancer ? At the time she had a fungating mass on the right breast that was reduced in size ? She does have suspicious findings on her chest x-ray consistent with her breast cancer given her dementia family does not want to be overly aggressive ? They had elected in February to observe her breast cancer and forego any new treatments 3. Hypothyroidism ? Stable ? Continue with Synthroid 4. Essential hypertension ?Continue with losartan ? Renal functions back to baseline 5. Anxiety/depression ? Stable ? Continue with her home medications DVT: SCDs Disposition: Awaiting SNF placement Charges/Coding Visit Charges Inpatient E&M: 41602 Subs Hosp L1
--- NOTE | 2024-10-22 09:57 | PCM.DC.SUM ---
Providers Date of Admission: 10/18/24 Primary Care Physician: Dr. Russell Shannon, DO Consultations 10/20/24 12:50 Consult: Inpatient Palliative Care Routine Consulting Provider: Ivon Unger Reason for Consult: Decline in pt health EMERGENT Consult: No MD Notified: Yes Date Notified: 10/20/24 Time Notified: 12:50 Method of Notification: Text Reason For Visit: AMS 2/2 UTI Diagnosis Discharge Diagnosis (1) Shortness of breath: Status: Acute Code(s): R06.02 - Shortness of breath (2) LBBB (left bundle branch block): Status: Acute Code(s): I44.7 - Left bundle-branch block, unspecified (3) Lung mass: Status: Acute Code(s): R91.8 - Other nonspecific abnormal finding of lung field (4) Palliative care encounter: Status: Acute Code(s): Z51.5 - Encounter for palliative care Plan 1. Acute metabolic encephalopathy secondary to UTI in the setting of chronic dementia with possible bacterial pneumonia ? Urine analysis looks very positive for UTI however no urine culture was sent and cannot be sent because the original sample was disposed of by lab ? Continue with Rocephin and azithromycin, there was concern for possibility of pneumonia given the productive cough ? Continue with her home medications for her dementia 2. Basal cell carcinoma as well as breast cancer ? Underwent palliative radiation last year for her breast cancer ? At the time she had a fungating mass on the right breast that was reduced in size ? She does have suspicious findings on her chest x-ray consistent with her breast cancer given her dementia family does not want to be overly aggressive ? They had elected in February to observe her breast cancer and forego any new treatments 3. Hypothyroidism ? Stable ? Continue with Synthroid 4. Essential hypertension ?Continue with losartan ? Renal functions back to baseline 5. Anxiety/depression ? Stable ? Continue with her home medications DVT: SCDs Disposition: Awaiting SNF placement Medications at Discharge Home Medications propranolol 60 mg capsule,24 hr,extended release 60 mg PO QHS 03/10/21 vitamin B12 500 mcg-folic acid 400 mcg tablet 1 tab PO DAILY 03/10/21 donepezil 10 mg tablet 10 mg PO DAILY 09/17/23 memantine 5 mg tablet 5 mg PO BID 09/17/23 levothyroxine 75 mcg tablet 75 mcg PO DAILY 10/18/24 losartan 100 mg tablet 100 mg PO DAILY 10/18/24 sertraline 50 mg tablet 50 mg PO DAILY 10/18/24 azithromycin 500 mg tablet 500 mg PO DAILY #1 TAB 10/22/24 cefdinir 300 mg capsule 300 mg PO BID #6 caps 10/22/24 Hospital Course Operations None Procedures None Summary of Care Provided Minutes Spent on Discharge: 33 Hospital Course: Per HPI: SHAGUFTA CHAVES, is a 79-year-old female history of hypertension, breast cancer, memory impairment, hypothyroidism, basal cell carcinoma of the scalp who presented [facility] ED 10/18/2024 due to some confusion on top of her usual memory problems and she complained of some shortness of breath today. In the ED patient afebrile, heart rate 56 and blood pressure 139/69, respiratory rate 14 and pulse ox 97% on room air. CBC with white count 8.6, hemoglobin 12.3, CMP with a BUN of 36 and a creatinine of 1.32, BUN of 36 and creatinine 1.32, glucose 104. Troponin 29, brain CT with no intracranial hemorrhage. Chest x-ray demonstrated extensive pulmonary opacities worrisome for malignancy/metastatic disease. UA obtained which was suspicious for infection. Patient given antibiotics and hospitalist contacted for admission. Patient evaluated at bedside with son present, son provided most of the history as patient is confused and has a difficult time answering questions, she has had difficulties with her memory for 3 years however has been worse over the past 3 to 4 days and she has been increasingly very tired and fatigued recently, shortness of breath she only complained of today without cough or fever. Has some constant sinus problems but nothing new, denies chest pain or diarrhea or abdominal pain. She is unsure if she has had any urinary changes Hospital Course: 1. Acute metabolic encephalopathy in the setting of chronic dementia secondary to UTI with possible bacterial pneumonia?79-year-old female presented from home with increased confusion. Her son states that she lives home alone even with her moderate dementia because she has done well however he noticed over the couple days prior to admission that she seemed more confused which is why he brought her in. We did a urine analysis which demonstrated concerns for UTI however no urine culture was ordered in the ER and the next day when I went to order the urine culture the lab had thrown away the sample but by that point she had already received 2 doses of antibiotics so I felt that a repeat urine culture would be unhelpful. She was placed on Rocephin and azithromycin, and she has had significant improvement and the son states that she is almost back to her baseline however they were concerned with her going back home and were attempting to find placement however she did not need any skilled assistance for therapy so they have decided on self-pay at a local [facility] for a week or 2 to see if they can get her back home or what the next that we will be. She will need 1 more day of azithromycin 500 mg and then 3 more days of cefdinir 300 mg twice daily to complete treatment course. I discussed this plan for discharge with the son and he expressed understanding of the risks and benefits of going to the [facility] and would like for her to go home. 2. Basal cell carcinoma as well as history of breast cancer, hypothyroidism, essential hypertension, anxiety, depression are all chronic medical conditions which complicate her care. Her home medications were continued where appropriate. She is a DNR CCA and we have had palliative conversations as well as they do not want any further aggressive treatment of her breast cancer which was a fungating mass on her right breast. She did undergo radiation. Basal cell carcinoma just requires dressing placements on her scalp. Medical Records Data Medical Nutrition Assessment Dietitian: Malnutrition Criteria Met Start: 10/19/24 13:25 Freq: Status: Active Protocol: Document 10/19/24 13:25 JUAN JOSE (Rec: 10/19/24 13:25 [facility] [id number]) Nutrition Malnutrition Evidence of Yes Malnutrition Exists Malnutrition (severe Chronic ): Evidenced By Suboptimal Energy Intake (Severe),Weight Loss (Severe), Physical Changes (Severe) Clinical Problem Chronic Disease or Condition Related Malnutrition Etiology related to cancer and inadequate energy intake Signs/Symptoms as evidenced by po intake meeting <75% of est nutritional needs, BMI 14.3 and fat loss/muscle wasting throughout body. Status Active Problem Recommendation Dietitian Will continue liberal regular diet as ordered Recommendations/ Will order fortified foods w/ meals as able/ magic cup Changes w/ lunch and dinner for increased nutrition if consumed Will order 4 oz ensure plus high protein 4x/day w/ medpass for increased nutrition if consumed Rec consider appetite stimulant to help encourage increased po intake of meals and ONS If po intake fails to improve, may need to consider supplemental nutrition support, if in accordance w/ pt/ family wishes. Homelessness:: Sheltered Weight / BMI Weight Weight: 86 lb 2 oz Body Mass Index (BMI) 14.3 ABG / Lab / Microbiology Data 10/21/24 05:35 10/21/24 05:35 D/C Instructions Call your doctor if you observe: Fever of 101 or Higher, Shortness of breath, Dizziness, Fainting spells, Swelling in the ankles, Chest pain and Increased palpitations (irregular heartbeat) DC O2, CPAP, BIPAP Needs Home O2 Discharge instructions: No Meaningful Use Info Meaningful Use Meaningful Use Diagnoses (Choose all that apply): None applicable Discharge Plan Admission Admit Date/Time: 10/18/24 20:30 Attending Provider: Onel Tenorio Primary Care Provider: Russell Shannon Consulting Providers: Oksana Fortune; Ivon Unger Instructions Additional Instructions / Restrictions: Follow-up with your primary care doctor to monitor your kidney function Discharge Orders/Prescriptions Prescriptions: New azithromycin 500 mg tablet 500 mg PO DAILY Qty: 1 0RF cefdinir 300 mg capsule 300 mg PO BID Qty: 6 0RF Continued memantine 5 mg tablet 5 mg PO BID donepezil 10 mg tablet 10 mg PO DAILY vitamin V74-[id number] acid 500-400 mcg Tablet 1 tab PO DAILY propranolol 60 MG capsule,extended release 24 hr 60 mg PO QHS Patient Comments: heart/blood pressure levothyroxine 75 mcg tablet 75 mcg PO DAILY losartan 100 mg tablet 100 mg PO DAILY sertraline 50 mg tablet 50 mg PO DAILY Discontinued levothyroxine 100 mcg tablet 50 mcg PO DAILY Patient Comments: thyroid medication Rx Instructions: Take 2 Doses on Saturday losartan 25 mg tablet 100 mg PO QHS Patient Comments: blood pressure levothyroxine 50 mcg Capsule 100 mcg PO IGNACIO Referrals / Follow Up: Russell Shannon DO [Primary Care Provider] - Within 1 Week Disposition Disposition (needs filled in before D/C Order can be placed): Detention Facility Charges/Coding Visit Charges Inpatient E&M: 79925 Disch Hosp >30min
--- NOTE | 2024-10-22 10:22 | PHA.DC.MR.R ---
[facility] has performed discharge medication reconciliation for this patient. The patient's discharge medication list was reviewed for discrepancies and discrepancies were resolved. - New medication at discharge: Cefdinir 1 cap PO BID X3 days, Azithromycin 500 mg tablet daily x1 day. Medications at Discharge Home Medications propranolol 60 mg capsule,24 hr,extended release 60 mg PO QHS 03/10/21 vitamin B12 500 mcg-folic acid 400 mcg tablet 1 tab PO DAILY 03/10/21 donepezil 10 mg tablet 10 mg PO DAILY 09/17/23 memantine 5 mg tablet 5 mg PO BID 09/17/23 levothyroxine 75 mcg tablet 75 mcg PO DAILY 10/18/24 losartan 100 mg tablet 100 mg PO DAILY 10/18/24 sertraline 50 mg tablet 50 mg PO DAILY 10/18/24 azithromycin 500 mg tablet 500 mg PO DAILY #1 TAB 10/22/24 cefdinir 300 mg capsule 300 mg PO BID #6 caps 10/22/24
--- NOTE | 2024-10-22 10:43 | CASEMGMT ---
Discharge Planning Discharge orders, signed med list, and transport time sent to [facility]. Physicians will transport pt bu cot between 3:30-4p (family request). Nursing, SW, and pts son (Alcides) updated. Mari Snider DC Planning Asst.
[2024-10-22] MEDS: Memantine Hydrochloride 5 MG Tablet PO (11:36)
[2024-10-22] MEDS: Ensure Plus High Protein 120 ML LIQUID PO ×2 (11:37→15:03)
[2024-10-22 12:00] VITALS: BP 160/66; PULSE 66; RESP 16; TEMP 36.7; O2SAT 94
--- NOTE | 2024-10-22 12:13 | CASEMGMT ---
Social Work [facility] asked for information to be faxed to LUC[facility] Rodriguez faxed over clinical information for the palliative care referral. KARISHMA Durbin
[2024-10-22 16:40] VITALS: BP 145/62; PULSE 62; RESP 16; TEMP 36.6; O2SAT 95
--- NOTE | 2024-12-11 14:30 | CASEMGMT ---
KEELEY LOWE NOTE: Referral was made to palliative care @ [facility] October. Call placed to son, Alcides, at this time for follow-up on this referral. No answer. VM left requesting return call. Jhonathan PITT RN CM
== END 2024-10-22 16:29 | disposition skilled nursing facility (03) | DRG 689 ==
LOC: ED 19:28 → MS3 20:32
PROVIDERS: Admitting Provider Internal Medicine; Emergency Provider Emergency Medicine; PCP Family Medicine; Visit Provider Family Medicine
DX: N39.0 Urinary tract infection, site not specified (principal); G93.41 Metabolic encephalopathy; E43 Unspecified severe protein-calorie malnutrition; J15.9 Unspecified bacterial pneumonia; Z68.1 Body mass index [BMI] 19.9 or less, adult; Z51.5 Encounter for palliative care; Z66 Do not resuscitate; F03.90 Unspecified dementia, unspecified severity, without behavioral disturbance, psychotic disturbance, mood disturbance, and anxiety; E03.9 Hypothyroidism, unspecified; I10 Essential (primary) hypertension; F32.A Depression, unspecified; F41.9 Anxiety disorder, unspecified; I44.7 Left bundle-branch block, unspecified; Z87.891 Personal history of nicotine dependence; Z92.3 Personal history of irradiation; R06.02 Shortness of breath; Z85.3 Personal history of malignant neoplasm of breast; Z79.890 Hormone replacement therapy; Z79.899 Other long term (current) drug therapy; Z98.51 Tubal ligation status; R91.8 Other nonspecific abnormal finding of lung field; Z85.828 Personal history of other malignant neoplasm of skin
CPT/HCPCS: 36415; 70450; 71045; 80048; 80053; 81001; 84443; 84484; 85025; 85027; 92526; 92610; 93005; 97161; 97166; 97535; 97802; 99285; P9612; A4216

== ENCOUNTER 2024-10-26 03:55 | Emergency (ER) | payer MEDICARE, OTHER, SELFPAY ==
[2024-10-26 03:57] VITALS: BP 210/63; PULSE 56; RESP 18; TEMP 36.4; O2SAT 93; BMI 14.8
[2024-10-26 04:02] VITALS: BP 200/63
--- NOTE | 2024-10-26 04:30 | EX.ED.DYSGE1 ---
HPI History of Present Illness Chief Complaint: Shortness of Breath Informant: EMS and SNF Narrative Narrative: Patient is an 79-year-old female with history of hypertension hyperlipidemia rheumatoid arthritis breast cancer and lung mass. She was recently admitted to the hospital secondary to UTI and delirium and was discharged with senior living. Chart review reveals that her x-ray at that time showed lung changes to the right concerning for metastatic disease. It also states that the family was contacted regarding this finding and based on the patient's advanced age and dementia do not want any further intervention. Based on the patient's dementia she cannot offer any further history. According to EMS and senior living the patient's pulse ox was reading low approximately 60% which concerned him and she was sent into the hospital for evaluation. The patient states that she has had slight congestion but does not feel short of breath PFSH [facility] Medical History Basal cell carcinoma of scalp Wears glasses Cancer Forgetfulness Anxiety Thyroid disease Arthritis Difficulty swallowing Former smoker Hypertension History of echocardiogram History of stress test Former smoker Neoplasm of skin of scalp Home Medications ?Medication ?Instructions ?Recorded ?Last Taken ?Type propranolol 60 mg capsule,24 60 mg PO QHS 03/10/21 Unknown History hr,extended release vitamin B12 500 mcg-folic acid 400 1 tab PO DAILY 03/10/21 Unknown History mcg tablet donepezil 10 mg tablet 10 mg PO DAILY 09/17/23 Unknown History memantine 5 mg tablet 5 mg PO BID 09/17/23 Unknown History levothyroxine 75 mcg tablet 75 mcg PO DAILY 10/18/24 Unknown History losartan 100 mg tablet 100 mg PO DAILY 10/18/24 Unknown History sertraline 50 mg tablet 50 mg PO DAILY 10/18/24 Unknown History azithromycin 500 mg tablet 500 mg PO DAILY #1 TAB 10/22/24 Unknown Rx cefdinir 300 mg capsule 300 mg PO BID #6 caps 10/22/24 Unknown Rx Allergy/AdvReac Type Severity Reaction Status Date / Time codeine Allergy Other Verified 10/26/24 03:56 simvastatin Allergy Other Verified 10/26/24 03:56 Family History Mother Hypertension CVA (cerebral vascular accident) Other No pertinent family history Surgical History History of basal cell carcinoma excision History of local excision of skin lesion History of cystoscopy Hx of submandibular gland removal Hx of tubal ligation Hx of total thyroidectomy History of thyroid surgery Social History housing: house Smoking Status: Former smoker alcohol intake: current alcohol intake frequency: holidays/special occasions only details: 1 glass of wine substance use type: does not use additional social history: Does Not Take Aspirin Does Not Take Ibuprofen ROS ROS ED ROS Narrative Please note review of systems may be unreliable secondary to patient's history of dementia Constitutional Constitutional ED: Denies chills or fever(s) ENT ENT ED: Reports rhinorrhea; Denies sore throat Cardiovascular Cardiovascular: Denies chest pain Respiratory/Chest Respiratory/Chest: Denies cough or dyspnea Gastrointestinal Gastrointestinal: Denies abdominal pain, diarrhea, nausea or vomiting Musculoskeletal Musculoskeletal: Denies back pain Integumentary Denies rash Neurologic Neurologic: Denies headache(s) EXAM Physical Exam Const Vital Signs: 10/26/24 03:57 10/26/24 04:02 10/26/24 04:05 Temperature 97.5 F L Temperature Source Oral Pulse Rate 56 L Respiratory Rate 18 Respiratory Effort Normal Blood Pressure 210/63 H 200/63 H Blood Pressure Mean 112 108 Pulse Ox 93 Oxygen Delivery Method Room Air 10/26/24 05:00 10/26/24 05:14 Temperature 98.1 F 98.1 F Temperature Source Oral Pulse Rate 52 L 53 L Respiratory Rate 16 16 Respiratory Effort Blood Pressure 161/56 H 161/56 H Blood Pressure Mean 91 91 Pulse Ox 100 99 Oxygen Delivery Method Room Air Positive well nourished and well developed General Appearance ED: well developed HEENT HEENT Narrative: No tongue or lip swelling no oral lesions no airway edema or compromise There is cobblestoning noted in the posterior pharynx consistent with sinus drainage; no secondary findings to suggest infection Eyes PERRL and EOMs intact bilaterally General Eye ED: Negative for scleral icterus Neck supple and no JVD Resp normal respiratory effort Resp Narrative: Breath sounds are diminished right great left with crackles and rhonchi along the right lower to mid lung field. However there is no nasal flaring retractions tachypnea dyspnea with speech or accessory muscle use. Cardio regular rhythm Rate: bradycardia GI normal to inspection, nondistended, normoactive bowel sounds, non-tender, non-distended and no masses GI Narrative: No fluid wave noted Auscultation: normoactive bowel sounds Palpation: soft Extremity normal to inspection Extremity Narrative: No asymmetric edema no pitting edema Neuro CN's II-XII intact bilaterally Neuro Narrative: Patient is awake and alert and at her baseline mental status There is no focal neurologic deficit noted Sensorium / Orientation: alert Psych Psych Narrative: Patient is at her baseline mental status Skin Skin Narrative: Skin is pale in color but capillary refills less than 3 seconds MDM MDM MDM Narrative Medical decision making narrative: Patient arrived to the ER hypertensive but otherwise with stable vitals and he does have a past history of hypertension. Our room air pulse ox was 93% and the patient does not have any increased work of breathing nor does she report feeling short of breath. This indicates that the senior living report of a pulse ox of 60 was most likely equipment malfunction. I reviewed the patient's chart and noted on her recent x-ray from October 18 that there is known changes in the right lung consistent with malignancy but that family does not want to pursue any intervention based on her age and dementia. Therefore at this time as the patient does not report or appear in respiratory distress and her pulse ox is normal on room air in the ER I do not feel there is need for intervention such as further imaging or laboratory studies. I did discuss this with the patient's son. He agrees that as her vitals are stable in the ER and she is not showing signs of distress that he would not want any intervention performed at this time. Therefore at pulse ox is normal on room air and son/family does not want intervention there is no need for further observation in the ER and she is otherwise safe for discharge History & Record Review Discussion w/independent historian: Family Additional record(s) reviewed:: Prior inpatient record Discharge Plan Triage Chief Complaint: Shortness of Breath ED Provider: Kristian Grady Dx/Rx/DC Orders Clinical Impression: Lung mass, Breast mass, right, Equipment malfunction, Hypertension, Dementia Instructions: ED Pulmonary Nodule Prescriptions: No Action memantine 5 mg tablet 5 mg PO BID donepezil 10 mg tablet 10 mg PO DAILY vitamin U71-nkizw acid 500-400 mcg Tablet 1 tab PO DAILY propranolol 60 MG capsule,extended release 24 hr 60 mg PO QHS Patient Comments: heart/blood pressure levothyroxine 75 mcg tablet 75 mcg PO DAILY losartan 100 mg tablet 100 mg PO DAILY sertraline 50 mg tablet 50 mg PO DAILY azithromycin 500 mg tablet 500 mg PO DAILY Qty: 1 0RF cefdinir 300 mg capsule 300 mg PO BID Qty: 6 0RF Primary Care Provider: Russell Shannon Referrals: Russell Shannon DO [Primary Care Provider] - Activity Restrictions/Additional Instructions: The patient's pulse ox in the ER has been reading 90 is 93% on room air indicating the 60% at the facility was most likely due to a poor waveform or equipment malfunction. Please continue all of her medications as directed and return to the ER should there be any further concerns Print Language: Persian Disposition Disposition: Home, Self Care Discharge Date/Time: 10/26/24 05:25
--- OUTSIDE RECORDS SUMMARY | 2024-10-26 04:52 | XMS RPT_ITS | CCD ---
Author Organization [facility] Care Team Providers Care Barrel Racer Name Role Phone Unavailable Primary Care Provider Unavailhaley e Dr. Russell Shannon DO Primary Care Provider Dr. Russell Shannon DO Attending Provider Dr. Vincent Brumfield DO Emergency Provider Tong POPE, Dr. Gandhi Admit Provider Tong POPE, Dr. Gandhi Attending Provider Tong POPE, Dr. Gandhi Other Provider Jona POPE, Dr. Onel Orlando Attending Provider Cornel HIGGINBOTHAM-CIvon Other Provider Jona POPE, Dr. Onel Orlando Other Provider Cornel IMPACT HAMMER OPERATOR-CIvon Attending Provide r Onel Tenorio Attending Unavailable Russell Shannon Primary Care Unavailable Oksana Fortune Admitting Unavailable Oksana Fortune Consulting Unavailable Onel Tenorio Consulting Unavailable Ivon Unger Attending Ivon Maldonado Consulting Russell Hernandez Primary Care Unavailable Ken Law Attending Unavailable Russell Shannon Referring Unavailable Russell Shannon Primary Care Unavailable Ken Law Attending Unavailable Russell Shannon Attending Unavailable Russell Shannon Primary Care Unavailable Vincent Brumfield Attending Unavailable Russell Shannon Primary Care Unavailable Onel Tenorio Attending Unavailable Russell Shannon Primary Care Unavailable Oksana Fortune Admitting Unavailable Oksana Fortune Consulting Unavailable Ivon Unger Consulting Oksana Faith Attending Unavailable Allergies Allergy Classification Reported Allergen(s) Allergy Type Date of Onset Reaction(s) Facility (6 sources) Codeine Drug Allergy 6 Other: See Comments [facility] (5 sources) Simvastatin Drug Allergy 2 Other [facility] (1 source) HMG-CoA reductase inhibitor Drug Intolerance 4 Other: See Comments [facility] (1 source) Codeine Drug Allergy 5 [facility] (1 source) Simvastatin Drug Allergy 5 [facility] Medications Current Medications Medication Drug Class(es) Dates Sig (Normalized) Sig (Original) azithromycin 500 mg oral tablet (1 source) Macrolide Antimicrobial Start: 10-22-2024 take 1 tablet by mouth once daily Azithromycin 500 mg tablet Active 500 mg PO DAILY 1 October 22, 2024 12:00am cefdinir 300 mg oral capsule (1 source) Cephalosporin Antibacterial Start: 10-22-2024 take 1 capsule by mouth twice daily Cefdinir 300 mg capsule Active 300 mg PO TWICE A DAY 6 0 October 22, 2024 12:00am colesevelam hydrochloride 3750 mg powder for oral suspension (1 source) Bile Acid Sequestrant Start: 10-05-2013 WELCHOL 3.75 gram pwpk donepezil hydrochloride 10 mg oral tablet (3 sources) Start: 09-17-2023 take 1 tablet by mouth once daily Donepezil 10 mg tablet Active 10 mg PO DAILY September 17, 2023 12:00am folic acid 1 mg oral tablet (1 source) Start: 06-24-2007 FOLIC ACID 1 MG TAB Take one(1) tablet daily. 0 06/24/2007 Active folic acid 0.4 mg / vitamin b12 0.5 mg oral tablet (5 sources) Vitamin B12 Start: 03-10-2021 Vitamin G07-Yyrhv Acid 500-400 mcg Tablet Active 1 {tbl} PO DAILY March 10, 2021 1:00am Start: 03-10-2021 take 1 tablet by cielo once daily Vitamin V99-Oyfyu Acid Active 1 TABLET PO DAILY Fiorella 28th, 2022 1:00am levothyroxine sodium 0.075 mg oral tablet (20 sources) l-Thyroxine Start: 10-18-2024 take 1 tablet by mouth once daily Levothyroxine 75 mcg tablet Active 75 ug PO DAILY October 18, 2024 12:00am Start: 03-10-2021 End: 10-22-2024 Levothyroxine 50 mcg Capsule Discontinued 100 ug PO IGNACIO March 10, 2021 1:00am October 22, 2024 10:04am Start: 03-10-2021 Levothyroxine Active 100 MCG PO IGNACIO March 10, 2021 1:00am Start: 03-07-2021 End: 10-22-2024 take 2 tablets by mouth once daily Levothyroxine 100 mcg tablet Discontinued 50 ug PO DAILY March 07, 2021 12:15pm October 22, 2024 10:04am Take 2 Doses on Saturday Start: 03-07-2021 [...] daily before breakfast. 0 Active losartan potassium 100 mg oral tablet (18 sources) Angiotensin 2 Receptor Ronald Start: 10-18-2024 take 1 tablet by mouth once daily Losartan 100 mg tablet Active 100 mg PO DAILY October 18, 2024 12:00am Start: 03-07-2021 End: 10-22-2024 take 4 tablets by mouth at bedtime Losartan 25 mg tablet Discontinued 100 mg PO AT BEDTIME March 07, 2021 12:16pm October 22, 2024 10:04am Start: 03-07-2021 take 100 mg by mouth [...] tablet Discontinued 25 mg PO DAILY 30 0 June 08, 2013 12:00am March 11, 2019 8:39pm memantine hydrochloride 5 mg oral tablet (3 sources) R-zpvfhh-C-aspartate Receptor Antagonist Start: 09-17-2023 take 1 tablet by mouth twice daily Memantine 5 mg tablet Active 5 mg PO TWICE A DAY September 17, 2023 12:00am Start: 09-17-2023 take 1 tablet by cielo th once daily in the morning Memantine 5 mg tablet Active 5 mg PO EVERY MORNING September 17, 2023 12:00am 24 hr propranolol hydrochloride 60 mg extended release oral capsule (11 sources) beta-Adrenergic Ronald Start: 10-02-2013 take 1 capsule by mouth every twenty-four hours at bedtime Propranolol 60 MG capsule,extended release 24 hr Active 60 mg PO AT BEDTIME March 10, 2021 3:33pm Start: 06-08-2013 End: 03-10-2021 take 1 capsule by mouth once daily Propranolol 60 MG capsule Discontinued 60 mg PO DAILY 30 0 June 08, 2013 12:00am March 10, 2021 3:33pm Propylene glycol (1 source) PROPYLENE GLYCOL (SYSTANE BALANCE OPHTHALMIC) Use in eyes. 0 Active sertraline 50 mg oral tablet (2 sources) Serotonin Reuptake Inhibitor Start: 10-18-2024 take 1 tablet by mouth once daily Sertraline 50 mg tablet Active 50 mg PO DAILY October 18, 2024 12:00am Completed/Discontinued Medications Medication Drug Class(es) Dates Sig (Normalized) Sig (Original) acetaminophen 325 mg / oxyCODONE hydrochloride 2.5 mg oral tablet (5 sources) Opioid Agonist Start: 03-13-2021 End: 04-06-2021 [...] aspirin 81 mg delayed release oral tablet (6 sources) Platelet Aggregation Inhibitor, Nonsteroidal Anti-inflammatory Drug Start: 06-08-2013 End: 03-07-2021 take 1 tablet by mouth once daily Aspirin 81 MG tablet Discontinued 81 mg PO DAILY@0800 90 0 June 08, 2013 12:00am March 07, 2021 12:15pm clindamycin 300 mg oral capsule (5 sources) Lincosamide Antibacterial Start: 03-13-2021 End: 03-20-2021 take 1 capsule by mouth three times daily Clindamycin Hcl (Cleocin Hcl) 300 mg capsule Discontinued 300 mg PO THREE TIMES A DAY March 13, 2021 1:00am March 20, 2021 3:00pm ibuprofen 400 mg oral tablet (5 sources) Nonsteroidal Anti-inflammatory Drug Start: 06-05-2013 End: 03-07-2021 take 1 tablet by mouth twice daily as needed for pain Ibuprofen 400 MG tablet Discontinued 400 mg PO TWICE DAILY NEEDED as needed for Pain June 05, 2013 12:00am March 07, 2021 12:15pm L.Acidoph,Saliva-B. Bif-S.Therm (Acidophilus Probiotic Blend) 175 mg capsule (5 sources) Start: 03-13-2021 End: 04-06-2021 take 1 capsule by mouth once daily L.Acidoph,Saliva-B. Bif-S.Therm (Acidophilus Probiotic Blend) 175 mg capsule Discontinued 1 NMA PO DAILY 20 March 13, 2021 1:00am April 06, 2021 2:55pm Start: 03-13-2021 End: 04-06-2021 take 1 capsule by mouth once daily L.Acidoph,Saliva-B.Bif-S.Therm (Acidophi surinder Probiotic Blend) 175 mg capsule Discontinued 1 CAP PO DAILY March 13, 2021 1:00am April 06, 2021 2:55pm methotrexate 2.5 mg oral tablet (6 sources) Folate Analog Metabolic Inhibitor Start: 06-05-2013 [...] of unspecified site of right female breast] 09-26-2023 Chronic Conduction disorders (8 sources) Left bundle branch block; Translations: [Left bundle-branch block, unspecified] Onset: 10-22-2024 03-11-2019 Chronic Disorders of lipid metabolism (5 sources) Hyperlipidemia; Translations: [Hyperlipidemia, unspecified] 03-11-2019 Chronic Essential hypertension (1 source) Essential (primary) hypertension; Translations: [Essential (primary) hypertension] Onset: 08-12-2024 Chronic Nonmalignant breast conditions (3 sources) Breast lump; Translations: [Unspecified lump in the right breast, unspecified quadrant] 10-01-2023 Episodic Comment on above: With ulcerated mass T4 N1 Mx. Pt has memory loss. ER negative, NC negative, Her2 negative.Discussed locally advanced R breast cancer, staging with CT and bone scan with her son Alcides. Prognosis poor. He wants supportive care, does not want to do staging work up. Radiation therapy to the R breast is planned for palliation. Discussed Palliative care, Son has reservations about it now. Open wounds of head; neck; and trunk (5 sources) Laceration of forehead; Translations: [Laceration without foreign body of other part of head, initial encounter] 03-12-2019 Episodic Other aftercare (2 sources) Patient encounter status; Translations: [Encounter for palliative care] 10-20-2024 Episodic Other aftercare (2 sources) Encounter for palliative care; Translations: [Encounter for palliative care] Onset: 10-22-2024 Episodic Other lower respiratory disease (6 sources) Dyspnea; Translations: [Shortness of breath] 03-11-2019 Episodic Other lower respiratory disease (2 sources) Lung mass; Translations: [Other nonspecific abnormal finding of lung field] 10-20-2024 Episodic Other lower respiratory disease (2 sources) Shortness of breath; Translations: [Shortness of breath] Onset: 10-22-2024 Episodic Other lower respiratory disease (2 sources) Other nonspecific abnormal finding of lung field; Translations: [Other nonspecific abnormal finding of lung field] Onset: 10-22-2024 Episodic Other nervous system disorders (5 sources) Acute postoperative pain; Translations: [Other acute postprocedural pain] 03-13-2021 Episodic Other non-epithelial cancer of skin (5 sources) Basal cell carcinoma of scalp; Translations: [Basal cell carcinoma of skin of scalp and neck] 03-15-2021 Episodic Comment on above: 2 cm ulcerated basal cell carcinoma left frontal scalp Residual codes; unclassified (3 sources) Chronic confusion; Translations: [Disorientation, unspecified] 01-08-2024 Episodic Rheumatoid arthritis and related disease (5 sources) Rheumatoid arthritis; Translations: [Rheumatoid arthritis, unspecified] 03-15-2021 Chronic Screening and history of mental health and substance abuse codes (5 sources) Ex-smoker; Translations: [Personal history of nicotine dependence] 03-09-2021 Episodic Superficial injury; contusion (5 sources) Abrasion of hand; Translations: [Abrasion of unspecified hand, initial encounter] 03-12-2019 Episodic Thyroid disorders (3 sources) Non-toxic uninodular goiter; Translations: [Nontoxic single thyroid nodule] Onset: 09-25-2005 08-22-2023 Chronic Urinary tract infections (6 sources) Urinary tract infectious disease; Translations: [Urinary tract infection, site not specified] Onset: 10-22-2024 10-18-2024 Episodic Past or Other Problems Problem Classification Problem Date Documented Da te Episodic/Chronic Lymphadenitis (1 source) Lymphadenopathy; Translations: [Enlarged lymph nodes, unspecified] Onset: 09-25-2005 08-22-2023 Episodic Residual codes; unclassified (1 source) Altered mental status, unspecified; Translations: [Altered mental status, unspecified] Onset: 01-30-2024 Episodic Results Test Name Value Interpretation Reference Range Facility Absolute lymphocyte countOrd ered By: Onel Tenorio on 10-21-2024 Lymphocytes Auto (Unsp spec) [#/Vol] 0.88 10*3/uL 0.83-4.51 [facility] Absolute neutrophil countOrd ered By: Onel Tenorio on 10-21-2024 Neutrophils (Bld) [#/Vol] 4.4 10*3/uL 2.0-7.7 [facility] Anion gap in Serum or Plasma Ordered By: Onel Tenorio on 10-21-2024 Anion gap [Moles/Vol] 8 mmol/L 06-25 [facility] Automated lymphocyte count a s percentage of total leukocytesOrdered By: Onel Tenorio on 10-21-2024 Lymphocytes/100 WBC Auto (Unsp spec) 14.6 % Low [facility] BUN/creatinine ratioOrdered By: Onel Tenorio on 10-21-2024 Urea nitrogen/Creatinine [Mass ratio] 16.8 mg/mg 11-30 [facility] Basic Metabolic Profile (BMP )on 10-21-2024 BUN/CRE 16.8 RATIO Normal 11-30 [facility] Comment on above: Performed By: #### L [id number], L500.4050, L100.0500 #### [facility] [address] [place], [address] Calcium [Mass/Vol] 9.2 mg/dL Normal 7.6-11.0 [facility] Comment on above: Performed By: #### L [id number], [id number], L100.0500 #### [facility] [address] [place], [address] Chloride [Moles/Vol] 109 mmol/L High 98-108 [facility] Comment on above: Performed By: #### L [id number], [id number], [id number] #### [facility] [address] [place], [address] CO2 [Moles/Vol] 23.9 mmol/L Normal 21.0-32.0 [facility] Comment on above: Performed By: #### L [id number], [id number], [id number] #### [facility] [address] [place], [address] Creatinine [Mass/Vol] 0.95 mg/dL Normal 0.70-1.20 [facility] Comment on above: Performed By: #### L [id number], [id number], L100.0500 #### [facility] [address] [place], [address] ECRCL 28.64 ml/min Low 50-250 [facility] Comment on above: Performed By: #### L [id number], [id number], [id number] #### [facility] [address] [place], [address] GAP 8 Normal 5-15 [facility] Comment on above: Performed By: #### L [id number], [id number], L100.0500 #### [facility] [address] [place], [address] GFR/1.73 sq M.predicted among non-blacks MDRD (S/P/Bld) [Vol rate/Area] 60 mL/min/{1.73_m2} Normal >60 [facility] Comment on above: Result Comment: mL/m in/1.73m2 CKD-EPI Creatinine Equation (2020) Performed By: #### L [id number], [id number], L100.0500 #### [facility] [address] [place], [address] Glucose [Mass/Vol] 89 mg/dL Normal 70-99 [facility] Comment on above: Performed By: #### L [id number], [id number], [id number] #### [facility] [address] [place], [address] Potassium [Moles/Vol] 3.6 mmol/L Normal 3.3-5.1 [facility] Comment on above: Performed By: #### L [id number], [id number], L100.0500 #### [facility] [address] [place], [address] Sodium [Moles/Vol] 142 mmol/L Normal 133-145 [facility] Comment on above: Performed By: #### L [id number], [id number], L100.0500 #### [facility] [address] [place], [address] Urea nitrogen [Mass/Vol] 16 mg/dL Normal 4-19 [facility] Comment on above: Performed By: #### L [id number], [id number], L100.0500 #### [facility] [address] [place], [address] Basophil percentageOrdered B y: Onel Tenorio on 10-21-2024 Basophils/100 WBC (Bld) 1.0 % 0-[address] [facility] CBC W/Diff, Automatedon 10-12 Absolute Lymph 0.88 X10 3/uL Normal 0.83-4.51 [facility] Comment on above: Performed By: #### L [id number], [id number], L100.0500 #### [facility] [address] [place], [address] Absolute Neut 4.4 X10 3/uL Normal 2.0-7.7 [facility] Comment on above: Performed By: #### L [id number], [id number], L100.0500 #### [facility] [address] [place], [address] Basophils/100 WBC (Bld) 1.0 % Normal 0-[address] [facility] Comment on above: Performed By: #### L [id number], [id number], L100.0500 #### [facility] [address] [place], [address] Eosinophils/100 WBC (Bld) 2.8 % Normal 0-5 [facility] Comment on above: Performed By: #### L [id number], [id number], L100.0500 #### [facility] [address] [place], [address] Erythrocyte distribution width (RBC) [Ratio] 15.9 % High 11.6-14.6 [facility] Comment on above: Performed By: #### L [id number], [id number], L100.0500 #### [facility] [address] [place], [address] Hematocrit (Bld) [Volume fraction] 39.3 % Normal 37-47 [facility] Comment on above: Performed By: #### L [id number], [id number], L100.0500 #### [facility] [address] [place], [address] Hemoglobin (Bld) [Mass/Vol] 12.4 g/dL Normal 12.0-15.0 [facility] Comment on above: Performed By: #### L [id number], [id number], L100.0500 #### [facility] [address] [place], [address] IG% 1.000 High 0.0-0.9 [facility] Comment on above: Result Comment: IG% - Immature Granulocytes (promyelocytes, myelocytes and metamyelocytes) > 1% indicates that a LEFT SHIFT is Present. Performed By: #### L [id number], [id number], L100.0500 #### [facility] [address] [place], [address] Lymphocytes/100 WBC (Bld) 14.6 % Low 19-41 [facility] Comment on above: Performed By: #### L [id number], [id number], L100.0500 #### [facility] [address] [place], [address] MCH (RBC) [Entitic mass] 28.0 pg Normal 27.0-32.0 [facility] Comment on above: Performed By: #### L [id number], [id number], L100.0500 #### [facility] [address] [place], [address] MCHC (RBC) [Mass/Vol] 31.6 g/dL Low 32-36 [facility] Comment on above: Performed By: #### L [id number], [id number], L100.0500 #### [facility] [address] [place], [address] MCV (RBC) [Entitic vol] 88.7 fL Normal 81-99 [facility] Comment on above: Performed By: #### L [id number], [id number], L100.0500 #### [facility] [address] [place], [address] Monocytes/100 WBC (Bld) 8.3 % Normal 0-10 [facility] Comment on above: Performed By: #### L [id number], [id number], L100.0500 #### [facility] [address] [place], [address] Neutrophils/100 WBC (Bld) 72.3 % High 47-70 [facility] Comment on above: Performed By: #### L [id number], [id number], L100.0500 #### [facility] [address] [place], [address] Nucleated RBC (Bld) [#/Vol] 0 10*3/uL Normal 0-5 [facility] Comment on above: Performed By: #### L [id number], [id number], L100.0500 #### [facility] [address] [place], [address] Platelet mean volume (Bld) [Entitic vol] 9.2 fL Normal 6.2-12.0 [facility] Comment on above: Performed By: #### L [id number], [id number], L100.0500 #### [facility] [address] [place], [address] Platelets (Bld) [#/Vol] 264 10*3/uL Normal 150-450 [facility] Comment on above: Performed By: #### L [id number], [id number], L100.0500 #### [facility] [address] [place], [address] RBC (Bld) [#/Vol] 4.43 10*6/uL Normal 4.2-5.4 [facility] Comment on above: Performed By: #### L [id number], [id number], L100.0500 #### [facility] [address] [place], [address] RDW SD 50.0 fl High 35.1-43.9 [facility] Comment on above: Performed By: #### L [id number], [id number], L100.0500 #### [facility] [address] [place], [address] WBC (Bld) [#/Vol] 6.0 10*3/uL Normal 4.4-11.0 [facility] Comment on above: Performed By: #### L [id number], [id number], L100.0500 #### [facility] [address] [place], [address] Carbon dioxide, total [Moles /volume] in Central venous bloodOrdered By: Onel Tenorio on 10-21-2024 CO2 [Moles/Vol] 23.9 mmol/L 21.0-32.0 [facility] Chloride assayOrdered By: Kavitha Tenorio on 10-21-2024 Chloride [Moles/Vol] 109 mmol/L High 98-108 [facility] Eosinophil percentageOrdered By: Onel Tenorio on 10-21-2024 Eosinophils/100 WBC (Bld) 2.8 % 0-5 [facility] Erythrocyte distribution wid th ratioOrdered By: Onel Tenorio on 10-21-2024 Erythrocyte distribution width (RBC) [Ratio] 15.9 % High 11.6-14.6 [facility] Erythrocyte distribution wid th standard deviationOrdered By: Onel Tenorio on 10-21-2024 Erythrocyte distribution width (RBC) [Ratio] 50.0 fl High 35.1-43.9 [facility] Glomerular filtration rate ( GFR) estimation/1.73 sq m using serum, plasma, or whole bOrdered By: Onel Tneorio on 10-21-2024 GFR/1.73 sq M.predicted among non-blacks MDRD (S/P/Bld) [Vol rate/Area] 60 mL/min/{1.73_m2} >60 [facility] Comment on above: mL/min/1.73m2 CKD-EP I Creatinine Equation (2020) Hematocrit Auto (Bld) [Volum e fraction]Ordered By: Onel Tenorio on 10-21-2024 Hematocrit (Bld) [Volume fraction] 39.3 % 37-47 [facility] Hemoglobin measurementOrdere d By: Onel Tenorio on 10-21-2024 Hemoglobin (Bld) [Mass/Vol] 12.4 g/dL 12.0-15.0 [facility] Immature granulocytes/100 WB C Auto (Bld)Ordered By: Onel Tenorio on 10-21-2024 Immature granulocytes/100 WBC (Bld) 1.000 % High 0.0-0.9 [facility] Comment on above: IG% - Immature Granu locytes (promyelocytes, myelocytes and metamyelocytes) > 1% indicates that a LEFT SHIFT is Present. MCV (mean corpuscular volume ) determinationOrdered By: Onel Tenorio on 10-21-2024 MCV (RBC) [Entitic vol] 88.7 fL 81-[address] [facility] Mean corpuscular hemoglobin (MCH) determinationOrdered By: Onel Tenorio on 10-21-2024 MCH (RBC) [Entitic mass] 28.0 pg 27.0-32.0 [facility] Mean corpuscular hemoglobin concentration (MCHC) determinationOrdered By: Onel Tenorio on 10-21-2024 MCHC (RBC) [Mass/Vol] 31.6 g/dL Low 32-36 [facility] Mean platelet volume determi nationOrdered By: Onel Tenorio on 10-21-2024 Platelet mean volume (Bld) [Entitic vol] 9.2 fL 6.2-12.0 [facility] Monocyte percentageOrdered B y: Onel Tenorio on 10-21-2024 Monocytes/100 WBC (Bld) 8.3 % 0-[address] [facility] Neutrophil percentageOrdered By: Onel Tenorio on 10-21-2024 Neutrophils/100 WBC (Bld) 72.3 % High 47-70 [facility] Nucleated red blood cell per centageOrdered By: Onel Tenorio on 10-21-2024 Nucleated RBC/100 WBC (Bld) [Ratio] 0 % 0-5 [facility] Platelet countOrdered By: Kavitha Tenorio on 10-21-2024 Platelets (Bld) [#/Vol] 264 10*3/uL 150-450 [facility] Potassium measurement (mass/ volume)Ordered By: Onel Tenorio on 10-21-2024 Potassium (Unsp spec) [Mass/Vol] 3.6 mmol/L 3.3-5.1 [facility] RBC Auto (Bld) [#/Vol]Ordere d By: Onel Tenorio on 10-21-2024 RBC (Bld) [#/Vol] 4.43 10*6/uL 4.2-5.4 [facility] Serum creatinine measurement (mass/volume)Ordered By: Onel Tenorio on 10-21-2024 Creatinine [Mass/Vol] 0.95 mg/dL 0.70-1.20 [facility] Serum glucose measurement (m ass/volume)Ordered By: Onel Tenorio on 10-21-2024 Glucose [Mass/Vol] 89 mg/dL 70-99 [facility] Serum or plasma calcium shon urement (mass/volume)Ordered By: Onel Tenorio on 10-21-2024 Calcium [Mass/Vol] 9.2 mg/dL 7.6-11.0 [facility] Serum or plasma urea nitroge n measurement (mass/volume)Ordered By: Onel Tenorio on 10-21-2024 Urea nitrogen [Mass/Vol] 16 mg/dL 4-19 [facility] Sodium levelOrdered By: Jose Tenorio on 10-21-2024 Sodium [Moles/Vol] 142 mmol/L 133-145 [facility] White blood cell (WBC) count Ordered By: Onel Tenorio on 10-21-2024 WBC (Bld) [#/Vol] 6.0 10*3/uL 4.4-11.0 [facility] Discharge Instructionon Discharge Instruction [facility] Medical Records Department [address] [place] [address] Instructions for Home/Discharge Instructions 10/20/24 0934 MR#: [id number] Acct: [id number] Name: SHAGUFTA GUTIERREZ Rep #: [id number] : 1945 79 From: Onel Tenorio MD PCP: Dr. Russell Shannon, DO Status:ADM IN Discharge Instructions DC O2, CPAP, BIPAP needs Home O2 Discharge instructions: No Dressing / Incision Discharge Activity: Return to Normal Activity Dressing / Incision Call your doctor if you observe: Fever of 101 or Higher, Shortness of breath, Dizziness, Fainting spells, Swelling in the ankles, Chest pain and Increased palpitations (irregular heartbeat) Follow Up Care Test Results: Test results from this visit will be discussed in further detail at your follow-up appointment, if applicable. Discharge Plan Admission Admit Date/Time: 10/18/24 20:30 Attending Provider: Onel Tenorio Primary Care Provider: Russell Shannon Consulting Providers: Oksana Fortune Instructions Additional Instructions / Restrictions: Follow-up with your primary care doctor to monitor your kidney function Discharge Orders/Prescriptions Prescriptions: New cefdinir 300 mg capsule 300 mg PO BID Qty: 10 0RF azithromycin 500 mg tablet 500 mg PO DAILY 2 Days Qty: 2 0RF Continued memantine 5 mg tablet 5 mg PO BID donepezil 10 mg tablet 10 mg PO DAILY levothyroxine 100 mcg tablet 50 mcg PO DAILY Patient Comments: thyroid medication Rx Instructions: Take 2 Doses on Saturday losartan 25 mg tablet 100 mg PO QHS Patient Comments: blood pressure levothyroxine 50 mcg Capsule 100 mcg PO IGNACIO vitamin F64-lecyv acid 500-400 mcg Tablet 1 tab PO DAILY propranolol 60 MG capsule,extended release 24 hr 60 mg PO QHS Patient Comments: heart/blood pressure levothyroxine 75 mcg tablet 75 mcg PO DAILY losartan 100 mg tablet 100 mg PO DAILY sertraline 50 mg tablet 50 mg PO DAILY Referrals / Follow Up: Russell Shannon DO [Primary Care Provider] - Within 1 Week Disposition Disposition (needs filled in before D/C Order can be placed): Home, Self Care 10/20/24 0938 Onel Tenorio MD CC: Dr. Russell Shannon DO; Dr. Oksana Fortune MD Signed [facility] MR/CON.PCM.[facility] [place] 10-20-2024 MR/CON.PCM.[facility] Medical Records Department [address] [place] [address] Consultation - Palliative Care 10/20/24 1340 MR#: [id number] Acct: [id number] Name: SHAGUFTA GUTIERREZ Rep #: [id number] : 1945 79 From: Ivon Unger NP -Saad PCP: Dr. Russell Shannon DO Status:ADM IN Location: AL3 [id number] [facility] Medical History Basal cell carcinoma of scalp Wears glasses Cancer Forgetfulness Anxiety Thyroid disease Arthritis Difficulty swallowing Former smoker Hypertension History of echocardiogram History of stress test Former smoker Neoplasm of skin of scalp Home Medications ???Medication ???Instructions ???Recorded ???Last Taken ???Type levothyroxine 100 mcg tablet 50 mcg PO DAILY 03/07/21 03/13/21 History losartan 25 mg tablet 100 mg PO QHS 03/07/21 Unknown His tory levothyroxine 50 mcg capsule 100 mcg PO IGNACIO 03/10/21 Unknown His tory propranolol 60 mg capsule,24 60 mg PO QHS 03/10/21 Unknown Hist ory hr,extended release vitamin B12 500 mcg-folic acid 400 1 tab PO DAILY 03/10/21 Unknown History mcg tablet donepezil 10 mg tablet 10 mg PO DAILY 09/17/23 Unknown Hi story memantine 5 mg tablet 5 mg PO BID 09/17/23 Unknown Histo ry levothyroxine 75 mcg tablet 75 mcg PO DAILY 10/18/24 Unknown H istory losartan 100 mg tablet 100 mg PO DAILY 10/18/24 Unknown H istory sertraline 50 mg tablet 50 mg PO DAILY 10/18/24 Unknown Hi story azithromycin 500 mg tablet 500 mg PO DAILY 2 days #2 tabs 11/05 Unknown Rx cefdinir 300 mg capsule 300 mg PO BID #10 caps 10/20/24 Un known Rx Allergy/AdvReac Type Severity Reaction Status Date / Time codeine Allergy Other Verified 10/18/24 17:16 simvastatin Allergy Other Verified 10/18/24 17:16 Family History Mother Hypertension CVA (cerebral vascular accident) Other No pertinent family history Surgical History History of basal cell carcinoma excision History of local excision of skin lesion History of cystoscopy Hx of submandibular gland removal Hx of tubal ligation Hx of total thyroidectomy History of thyroid surgery Social History housing: house Smoking Status: Former smoker alcohol intake: current alcohol intake frequency: holidays/special occasions only details: 1 glass of wine substance use type: does not use additional social history: Does Not Take Aspirin Does Not Take Ibuprofen Homelessness:: Sheltered ROS Review of Systems ROS Unobtainable: due to mental status and other Details: Limited related to dementia. Constitutional Constitutional: Reports anorexia and other Details: Patient states that she does not want to eat. This is apparently not uncommon for her while at home either. Eyes Eyes: Reports systems reviewed and no addt'l complaints, except as documented ENT HEENT: Reports systems reviewed and no addt'l complaints, except as documented Cardiovascular Cardiovascular: Reports systems reviewed and no addt'l complaints, except as documented Respiratory/Chest Respiratory/Chest: Reports dyspnea and other Details: Slightly dyspneic especially on exertion. Gastrointestinal Gastrointestinal: Reports systems reviewed and no addt'l complaints, except as documented Genitourinary Genitourinary: Reports systems reviewed and no addt'l complaints, except as documented Musculoskeletal Musculoskeletal: Reports systems reviewed and no addt'l complaints, except as documented Integumentary Integumentary: Reports wounds and other Details: this thing on my head Neurologic Neurologic: Reports confusion Psychiatric Psychiatric: Reports anxiety and memory loss Allergic/Immunologic Allergic/Immunologic: Reports systems reviewed and no addt'l complaints, except as documented Physical Exam Const alert Constitutional Narrative: Oriented to person only. HEENT HEENT Narrative: Patient has a large wound to the top of her head approximately 5 cm in circumference. This is related to basal cell carcinoma. She also has a large growth to the front of her head which extends approximately 3 cm outward. Neck General: trachea midline Resp Auscultation: wheezes and diminished lung sounds Cardio regular rate Peripheral Pulses: pulses 2+ throughout GI normal to inspection, nondistended, normoactive bowel sounds Extremity normal capillary refill Skin Skin Narrative: Patient has circumferential wound to the top of her head with dressing in place. She also has a growth to the front of her head most likely basal cell carcinoma. Neuro Neuro Narrative: Patient is alert and oriented (more content not included)... Normal [facility] Basic Metabolic Profile (BMP )on 10-19-2024 BUN/CRE 24.6 RATIO High 10-20 [facility] Comment on above: Performed By: #### L 501.3702, L500.2500, L100.0100 #### [facility] [address] [place], [address] Calcium [Mass/Vol] 9.1 mg/dL Normal 7.6-11.0 [facility] Comment on above: Performed By: #### L 501.9520, L500.2500, L100.0100 #### [facility] [address] [place], [address] Chloride [Moles/Vol] 107 mmol/L Normal 98-108 [facility] Comment on above: Performed By: #### L 501.9520, L500.2500, L100.0100 #### [facility] [address] [place], [address] CO2 [Moles/Vol] 21.9 mmol/L Normal 21.0-32.0 [facility] Comment on above: Performed By: #### L 501.9520, L500.2500, L100.0100 #### [facility] [address] [place], [address] Creatinine [Mass/Vol] 1.12 mg/dL Normal 0.70-1.20 [facility] Comment on above: Performed By: #### L 501.9520, L500.2500, L100.0100 #### [facility] [address] [place], [address] ECRCL 24.30 ml/min Low 50-250 [facility] Comment on above: Performed By: #### L 501.9520, L500.2500, L100.0100 #### [facility] [address] [place], [address] GAP 11 Normal 5-15 [facility] Comment on above: Performed By: #### L 501.9520, L500.2500, L100.0100 #### [facility] [address] [place], [address] GFR/1.73 sq M.predicted among non-blacks MDRD (S/P/Bld) [Vol rate/Area] 49 mL/min/{1.73_m2} Low >60 [facility] Comment on above: Result Comment: mL/m in/1.73m2 CKD-EPI Creatinine Equation (2020) Performed By: #### L 501.9520, L500.2500, L100.0100 #### [facility] [address] [place], [address] Glucose [Mass/Vol] 90 mg/dL Normal 70-99 [facility] Comment on above: Performed By: #### L 501.9520, L500.2500, L100.0100 #### [facility] [address] [place], [address] Potassium [Moles/Vol] 3.5 mmol/L Normal 3.3-5.1 [facility] Comment on above: Performed By: #### L 501.9520, L500.2500, L100.0100 #### [facility] [address] [place], [address] Sodium [Moles/Vol] 140 mmol/L Normal 133-145 [facility] Comment on above: Performed By: #### L 501.9520, L500.2500, L100.0100 #### [facility] [address] [place], [address] Urea nitrogen [Mass/Vol] 28 mg/dL High 4-19 [facility] Comment on above: Performed By: #### L 501.9520, L500.2500, L100.0100 #### [facility] [address] [place], [address] CBC W/Diff, Automatedon 09-0 Absolute Lymph 0.69 X10 3/uL Low 0.83-4.51 [facility] Comment on above: Performed By: #### L 501.9520, L500.2500, L100.0100 #### [facility] [address] [place], [address] Absolute Neut 4.9 X10 3/uL Normal 2.0-7.7 [facility] Comment on above: Performed By: #### L 501.9520, L500.2500, L100.0100 #### [facility] [address] [place], [address] Basophils/100 WBC (Bld) 0.9 % Normal 0-[address] [facility] Comment on above: Performed By: #### L 501.9520, L500.2500, L100.0100 #### [facility] [address] [place], [address] Eosinophils/100 WBC (Bld) 2.3 % Normal 0-5 [facility] Comment on above: Performed By: #### L 501.9520, L500.2500, L100.0100 #### [facility] [address] [place], [address] Erythrocyte distribution width (RBC) [Ratio] 15.7 % High 11.6-14.6 [facility] Comment on above: Performed By: #### L 501.9520, L500.2500, L100.0100 #### [facility] [address] [place], [address] Hematocrit (Bld) [Volume fraction] 36.3 % Low 37-47 [facility] Comment on above: Performed By: #### L 501.9520, L500.2500, L100.0100 #### [facility] [address] [place], [address] Hemoglobin (Bld) [Mass/Vol] 11.7 g/dL Low 12.0-15.0 [facility] Comment on above: Performed By: #### L 501.9520, L500.2500, L100.0100 #### [facility] [address] [place], [address] IG% 0.500 Normal 0.0-0.9 [facility] Comment on above: Result Comment: IG% - Immature Granulocytes (promyelocytes, myelocytes and metamyelocytes) > 1% indicates that a LEFT SHIFT is Present. Performed By: #### L 501.9520, L500.2500, L100.0100 #### [facility] [address] [place], [address] Lymphocytes/100 WBC (Bld) 10.7 % Low 19-41 [facility] Comment on above: Performed By: #### L 501.9520, L500.2500, L100.0100 #### [facility] [address] [place], [address] MCH (RBC) [Entitic mass] 27.5 pg Normal 27.0-32.0 [facility] Comment on above: Performed By: #### L 501.9520, L500.2500, L100.0100 #### [facility] [address] [place], [address] MCHC (RBC) [Mass/Vol] 32.2 g/dL Normal 32-36 [facility] Comment on above: Performed By: #### L 501.9520, L500.2500, L100.0100 #### [facility] [address] [place], [address] MCV (RBC) [Entitic vol] 85.4 fL Normal 81-[address] [facility] Comment on above: Performed By: #### L 501.9520, L500.2500, L100.0100 #### [facility] [address] [place], [address] Monocytes/100 WBC (Bld) 9.6 % Normal 0-[address] [facility] Comment on above: Performed By: #### L 501.9520, L500.2500, L100.0100 #### [facility] [address] [place], [address] Neutrophils/100 WBC (Bld) 76.0 % High 47-70 [facility] Comment on above: Performed By: #### L 501.9520, L500.2500, L100.0100 #### [facility] [address] [place], [address] Nucleated RBC (Bld) [#/Vol] 0 10*3/uL Normal 0-5 [facility] Comment on above: Performed By: #### L 501.9520, L500.2500, L100.0100 #### [facility] [address] [place], [address] Platelet mean volume (Bld) [Entitic vol] 9.7 fL Normal 6.2-12.0 [facility] Comment on above: Performed By: #### L 501.9520, L500.2500, L100.0100 #### [facility] [address] [place], [address] Platelets (Bld) [#/Vol] 297 10*3/uL Normal 150-450 [facility] Comment on above: Performed By: #### L 501.9520, L500.2500, L100.0100 #### [facility] [address] [place], [address] RBC (Bld) [#/Vol] 4.25 10*6/uL Normal 4.2-5.4 [facility] Comment on above: Performed By: #### L 501.9520, L500.2500, L100.0100 #### [facility] [address] [place], [address] RDW SD 47.1 fl High 35.1-43.9 [facility] Comment on above: Performed By: #### L 501.9520, L500.2500, L100.0100 #### [facility] [address] [place], [address] WBC (Bld) [#/Vol] 6.4 10*3/uL Normal 4.4-11.0 [facility] Comment on above: Performed By: #### L 501.9505, L500.2500, L100.0100 #### [facility] [address] [place], [address] Electrocardiogram reportOrde red By: Ortega Armstrong on 10-19-2024 EKG study [facility] Cardiovascular Services [address] [facility] [place] [address] 12 Lead EKG 10/18/24 1752 MR#: [id number] Acct: [id number] Name: SHAGUFTA GUTIERREZ Rep #:[id number] : 1945 79 From: Ortega park MD Attending Dr: Dr. Onel Tenorio MD Status: ADM IN Ordering Dr: Vincent Brumfield DO Date: 0 10/18/24 Location: [facility] Sex: F C Admitted: 10/18/24 Test Reason : CONFUSION Blood Pressure : */* mmHG Vent. Rate : 53 BPM Atrial Rate : 53 BPM P-R Int : 142 ms QRS Dur : 138 ms QT Int : 464 ms P-R-T Axes : 94 15 93 degrees QTcB Int : 435 ms Sinus bradycardia Left bundle branch block Abnormal ECG Confirmed by Ortega Armstrong ([id number]), publishing editor SHANNON MONSALVE ([id number]) on 10/19/2024 9:53:00 AM Referred By: Confirmed By: Ortega Armstrong 10/19/24 0953 Date _ Ortega Armstrong MD CC: Dr. Russell Shannon DO; Dr. Onel Tenorio MD; Dr. Vincent Brumfield DO ~ Signed [facility] Other Phone: TSH DL <= 0.005 mIU/L QnOrde red By: Oksana Fortune on 10-19-2024 TSH Qn 19.100 uIU/mL High 0.300-4.200 [facility] Thyroid Stim Hormone (TSH)on 10-19-2024 TSH 19.100 uIU/mL High 0.300-4.200 [facility] Comment on above: Performed By: #### L 501.9520, L500.2500, L100.0100 #### [facility] [address] [place], [address] Troponin T HS 4 HRon 025 Trop T High Sen 32 ng/L High <=14 [facility] Comment on above: Performed By: #### L 499.0043 #### [facility] [address] [place], [address] Troponin T.cardiac [Mass/vol ume] in Serum or Plasma by High sensitivity methodOrdered By: Vincent Brumfield on 10-19-2024 Troponin T.cardiac High sensitivity method [Mass/Vol] 32 ng/L High <14 [facility] 12 Lead EKGon 10-18-2024 12 Lead EKG [facility] Services [address] [place] [address] 12 Lead EKG 10/18/24 1752 MR#: [id number] Acct: [id number] Name: SHAGUFTA GUTIERREZ Rep #: [id number] : 1945 79 From: Ortega Armstrong MD Attending Dr: Dr. Onel Tenorio MD Status : ADM IN Ordering Dr: Vincent Brumfield DO Date: 10/18/24 Location: [facility] Sex: F C Admitted: 10/18/24 Test Reason : CONFUSION Blood Pressure : */* mmHG Vent. Rate : 53 BPM Atrial Rate : 53 BPM P-R Int : 142 ms QRS Dur : 138 ms QT Int : 464 ms P-R-T Axes : 94 15 93 degrees QTcB Int : 435 ms Sinus bradycardia Left bundle branch block Abnormal ECG Confirmed by Ortega Armstrong ([id number]), publishing editor SHANNON MONSALVE ([id number]) on 10/19/2024 9:53:00 AM Referred By: Confirmed By: Ortega Armstrong 10/19/24 0953 Date Ortega Armstrong MD CC: Dr. Russell Shannon DO; Dr. Onel Tenorio MD; Dr. Vincent Brumfield DO Signed Normal [facility] Anion gap in Serum or Plasma Ordered By: Vincent Brumfield on 10-18-2024 Anion gap [Moles/Vol] 14 mmol/L 5-15 [facility] BUN/creatinine ratioOrdered By: Vincent Brumfield on 10-18-2024 Urea nitrogen/Creatinine [Mass ratio] 27.2 mg/mg High 10-20 [facility] Bilirubin Test strip Ql (U)O rdered By: Vincent Brumfield on 10-18-2024 Bilirubin Ql (U) Negative Negative [facility] Bilirubin, totalOrdered By: Vincent Brumfield on 10-18-2024 Bilirubin [Mass/Vol] 0.28 mg/dL 0.00-1.30 [facility] Brain/Head without Contrasto n 10-18-2024 Brain/Head without Contrast [facility] Imaging Services [address] [place] [address] [id number] Brain/Head without Contrast MR#: [id number] Acct: [id number] Name: SHAGUFTA GUTIERREZ Rep #: [id number] : 1945 F 79 From: Last Brower MD PCP: Dr. Russell Shannon DO Status: REG ER Study: Brain/Head without Contrast Date of Exam: 09/04 Exam# [id number] Ordering Dr: Vincent Brumfield DO PROCEDURE: BRAIN/HEAD WITHOUT CONTRAST 10/18/2024 REASON FOR EXAM: CONFUSION TECHNIQUE: Procedure Code: CTBR Modality: CT Procedure: BRAIN/HEAD WITHOUT CONTRAST Coronal and Sagittal reconstruction series were provided. One or more dose reduction techniques were used (e.g., Automated exposure control, adjustment of the mA and/or kV according to patient size, use of iterative reconstruction technique. RADIATION DOSE SUMMARY: CTDlvol: 44.99 mGy DLP: 762.36 mGycm COMPARISON: Head CT December 31, 2023 FINDINGS: Note: Images through the base of the brain and posterior fossa including the brainstem are slightly degraded by beam hardening artifact from the adjacent calvarium. Brain: There is no evidence of acute intracranial hemorrhage. Note is made that some parenchymal contusions may not be visible immediately. Consider follow-up imaging as clinically indicated. There is moderate to severe global parenchymal volume loss. No focal extra-axial fluid collection is seen. Appearance of the basal cisterns is unremarkable. There is no posterior fossa Chiari malformation. There is no midline shift or herniation. No evidence of pneumocephalus. Incidental intracranial calcifications noted. There is intracranial calcific atherosclerosis. Mild periventricular and deep white matter attenuation changes again noted consistent with chronic microvascular ischemic change and gliosis. No parenchymal changes are seen suggestive of cytotoxic edema to indicate an acute territorial vascular infarct. Note is made that CT changes may lag clinical findings an acute stroke. If indicated, consider follow-up imaging or diffusion-weighted MRI. Ventricles: The ventricles are distended, however similar to the prior exam and commensurate with degree of parenchymal volume loss consistent with ex vacuo dilation. The ventricles do not appear obstructed. Pituitary: The pituitary fossa does not appear enlarged. The pituitary stalk does not appear deviated. Soft tissues: There is focal soft tissue swelling and soft tissue gas along the anterior left frontal scalp consistent with hemorrhagic subgaleal soft tissue contusion or penetrating injury. Osseous: No acute calvarial fracture. No suspicious bone lesion. Visualized paranasal sinuses: Mild mucosal thickening within a few ethmoid air cells. No fluid in the paranasal sinuses. Mastoids: No fluid or opacification of mastoid air cells. Middle ear cavities: The visualized middle ear cavities are not opacified. There is soft tissue debris within the external auditory canals to be correlated directly with clinical exam. CT/Brain/Head without Contrast IMPRESSION: Focal soft tissue swelling and gas along the left frontal scalp to be correlated for soft tissue injury. No acute intracranial hemorrhage or acute calvarial fracture. - Global parenchymal volume loss and associated ex vacuo ventricular dilation. - Intracranial atherosclerosis and microvascular ischemic changes again noted. - Other findings discussed above. Reading Location: [facility] CC: Dr. Russell Shannon, DO; Dr. Vincent Brumfield DO Patient Accounts Manager: Signed Normal [facility] CBC-Complete Blood Cnt No Di ffon 10-18-2024 Erythrocyte distribution width (RBC) [Ratio] 15.6 % High 11.6-14.6 [facility] Comment on above: Performed By: #### L 100.0500, L500.4050 ####[facility] [address] [place], [address] Hematocrit (Bld) [Volume fraction] 38.0 % Normal 37-47 [facility] Comment on above: Performed By: #### L 100.0500, L500.4050 ####[facility] [address] [place], [address] Hemoglobin (Bld) [Mass/Vol] 12.3 g/dL Normal 12.0-15.0 [facility] Comment on above: Performed By: #### L 100.0500, L500.4050 ####[facility] [address] [place], [address] MCH (RBC) [Entitic mass] 27.8 pg Normal 27.0-32.0 [facility] Comment on above: Performed By: #### L 100.0500, L500.4050 ####[facility] [address] [place], [address] MCHC (RBC) [Mass/Vol] 32.4 g/dL Normal 32-36 [facility] Comment on above: Performed By: #### L 100.0500, L500.4050 ####[facility] [address] [place], [address] MCV (RBC) [Entitic vol] 85.8 fL Normal 81-[address] [facility] Comment on above: Performed By: #### L 100.0500, L500.4050 ####[facility] [address] [place], [address] Platelet mean volume (Bld) [Entitic vol] 9.4 fL Normal 6.2-12.0 [facility] Comment on above: Performed By: #### L 100.0500, L500.4050 ####[facility] [address] [place], [address] Platelets (Bld) [#/Vol] 317 10*3/uL Normal 150-450 [facility] Comment on above: Performed By: #### L 100.0500, L500.4050 ####[facility] [address] [place], [address] RBC (Bld) [#/Vol] 4.43 10*6/uL Normal 4.2-5.4 [facility] Comment on above: Performed By: #### L 100.0500, L500.4050 ####[facility] [address] [place], [address] RDW SD 47.4 fl High 35.1-43.9 [facility] Comment on above: Performed By: #### L 100.0500, L500.4050 ####[facility] [address] [place], [address] WBC (Bld) [#/Vol] 8.6 10*3/uL Normal 4.4-11.0 [facility] Comment on above: Performed By: #### L 100.0500, L500.4050 ####[facility] [address] [place], [address] Carbon dioxide, total [Moles /volume] in Central venous bloodOrdered By: Vincent Brumfield on 10-18-2024 CO2 [Moles/Vol] 20.3 mmol/L Low 21.0-32.0 [facility] Chest 1 View (Portable)on Chest 1 View (Portable) [facility] Imaging Services [address] [place] [address] Chest 1 View (Portable) MR#: [id number] Acct: [id number] Name: SHAGUFTA GUTIERREZ Rep #: [id number] : 1945 F 79 From: Last Brower MD PCP: Dr. Russell Shannon DO Status: REG ER Study: Chest 1 View (Portable) Date of Exam: 10/18/24 Exam# [id number] Ordering Dr: Vincent Brumfield DO PROCEDURE: CHEST 1 VIEW (PORTABLE) 10/18/2024 REASON FOR EXAM: CONFUSION TECHNIQUE: Frontal view of the chest. COMPARISON: Chest x-ray December 31, 2023 FINDINGS: Lungs: There is dense opacity at the right lung base which may be due to a combination of elevation of the right hemidiaphragm, pleural fluid, atelectasis, infiltrate/pneumonia and/or parenchymal/pleural mass. Clinical correlation is advised. Right lung volume is low. Left lung volume is pronounced. Soft tissue masses are seen overlying both demetrius thoraces, the largest single lesion measuring over 5 cm in diameter. These may represent parenchymal masses or pleural-based masses. Malignancy/metastatic disease is favored. Correlation with clinical history would be helpful. For complete evaluation consider chest CT with contrast if not already done. Pleura: Bilateral pleural effusions can not be ruled out. Biapical pleural thickening. No pneumothorax is seen. Mediastinum: There is no mediastinal widening or mediastinal shift. Heart: The cardiac silhouette is not enlarged. Vascular: Calcified aortic atherosclerosis. Jerome: The pulmonary jerome are not enlarged or retracted. Osseous: No acute fracture is seen. Degenerative changes of the spine. RAD/Chest 1 View (Portable) IMPRESSION: Extensive pulmonary opacities, worrisome for malignancy/metastatic disease. Superimposed pneumonia can not be ruled out. Findings and recommendations discussed above. Reading Location: [id number] CC: Dr. Russell Shannon DO; Dr. Vincent Brumfield DO Patient Accounts Manager: Signed Normal [facility] Chloride assayOrdered By: Gwendolyn Brumfield on 10-18-2024 Chloride [Moles/Vol] 104 mmol/L 98-108 [facility] Comprehensive Metabolic Prof ilon 10-18-2024 Albumin [Mass/Vol] 3.2 g/dL Low 3.4-4.8 [facility] Comment on above: Performed By: #### L 100.0500, L500.4050 ####[facility] [address] [place], [address] Albumin/Globulin [Mass ratio] 1.0 {ratio} Normal 0.9-2.4 [facility] Comment on above: Performed By: #### L 100.0500, L500.4050 ####[facility] [address] [place], [address] ALK PHOS 100 U/L Normal 35-104 [facility] Comment on above: Performed By: #### L 100.0500, L500.4050 ####[facility] [address] [place], [address] ALT [Catalytic activity/Vol] 24 U/L Normal <=34 [facility] Comment on above: Performed By: #### L 100.0500, L500.4050 ####[facility] [address] [place], [address] AST [Catalytic activity/Vol] 67 U/L High <=31 [facility] Comment on above: Performed By: #### L 100.0500, L500.4050 ####[facility] [address] [place], [address] Bilirubin [Mass/Vol] 0.28 mg/dL Normal 0.00-1.30 [facility] Comment on above: Performed By: #### L 100.0500, L500.4050 ####[facility] [address] [place], [address] BUN/CRE 27.2 RATIO High 10-20 [facility] Comment on above: Performed By: #### L 100.0500, L500.4050 ####[facility] [address] [place], [address] Calcium [Mass/Vol] 9.9 mg/dL Normal 7.6-11.0 [facility] Comment on above: Performed By: #### L 100.0500, L500.4050 ####[facility] [address] [place], [address] Chloride [Moles/Vol] 104 mmol/L Normal 98-108 [facility] Comment on above: Performed By: #### L 100.0500, L500.4050 ####[facility] [address] [place], [address] CO2 [Moles/Vol] 20.3 mmol/L Low 21.0-32.0 [facility] Comment on above: Performed By: #### L 100.0500, L500.4050 ####[facility] [address] [place], [address] Creatinine [Mass/Vol] 1.32 mg/dL High 0.70-1.20 [facility] Comment on above: Performed By: #### L 100.0500, L500.4050 ####[facility] [address] [place], [address] ECRCL 20.08 ml/min Low 50-250 [facility] Comment on above: Performed By: #### L 100.0500, L500.4050 ####[facility] [address] [place], [address] GAP 14 Normal 5-15 [facility] Comment on above: Performed By: #### L 100.0500, L500.4050 ####[facility] [address] [place], [address] GFR/1.73 sq M.predicted among non-blacks MDRD (S/P/Bld) [Vol rate/Area] 41 mL/min/{1.73_m2} Low >60 [facility] Comment on above: Result Comment: mL/m in/1.73m2 CKD-EPI Creatinine Equation (2020) Performed By: #### L 100.0500, L500.4050 ####[facility] [address] [place], [address] Globulin (S) [Mass/Vol] 3.2 g/dL Normal 2.2-4.2 [facility] Comment on above: Performed By: #### L 100.0500, L500.4050 ####[facility] [address] [place], [address] Glucose [Mass/Vol] 104 mg/dL High 70-99 [facility] Comment on above: Performed By: #### L 100.0500, L500.4050 ####[facility] [address] [place], [address] Potassium [Moles/Vol] 3.8 mmol/L Normal 3.3-5.1 [facility] Comment on above: Performed By: #### L 100.0500, L500.4050 ####[facility] [address] [place], [address] Sodium [Moles/Vol] 138 mmol/L Normal 133-145 [facility] Comment on above: Performed By: #### L 100.0500, L500.4050 ####[facility] [address] [place], [address] T PROT 6.4 g/dL Normal 5.9-8.4 [facility] Comment on above: Performed By: #### L 100.0500, L500.4050 ####[facility] [address] [place], [address] Urea nitrogen [Mass/Vol] 36 mg/dL High 4-19 [facility] Comment on above: Performed By: #### L 100.0500, L500.4050 ####[facility] [address] [place], [address] Emergency Department Summary on 10-18-2024 Emergency Department Summary [facility] Medical Records Department [address] [place] [address] Emergency Department Summary 10/18/24 MR#: [id number] Acct: [id number] Name: SHAGUFTA GUTIERREZ Rep #: [id number] : 1945 79 From: Vincent Brumfield DO PCP: Dr. Russell Shannon, DO Status:ADM IN Location: AL3 [id number] HPI History of Present Illness Chief Complaint: Confusion [facility] Medical History Basal cell carcinoma of scalp Wears glasses Cancer Forgetfulness Anxiety Thyroid disease Arthritis Difficulty swallowing Former smoker Hypertension History of echocardiogram History of stress test Former smoker Neoplasm of skin of scalp Home Medications ???Medication ???Instructions ???Recorded ???Last Taken ???Type levothyroxine 100 mcg tablet 50 mcg PO DAILY 03/07/21 03/13/21 History losartan 25 mg tablet 100 mg PO QHS 03/07/21 Unknown His tory levothyroxine 50 mcg capsule 100 mcg PO IGNACIO 03/10/21 Unknown His tory propranolol 60 mg capsule,24 60 mg PO QHS 03/10/21 Unknown Hist ory hr,extended release vitamin B12 500 mcg-folic acid 400 1 tab PO DAILY 03/10/21 Unknown History mcg tablet donepezil 10 mg tablet 10 mg PO DAILY 09/17/23 Unknown Hi story memantine 5 mg tablet 5 mg PO BID 09/17/23 Unknown Histo ry levothyroxine 75 mcg tablet 75 mcg PO DAILY 10/18/24 Unknown H istory losartan 100 mg tablet 100 mg PO DAILY 10/18/24 Unknown H istory sertraline 50 mg tablet 50 mg PO DAILY 10/18/24 Unknown Hi story Allergy/AdvReac Type Severity Reaction Status Date / Time codeine Allergy Other Verified 10/18/24 17:16 simvastatin Allergy Other Verified 10/18/24 17:16 Family History Mother Hypertension CVA (cerebral vascular accident) Other No pertinent family history Surgical History History of basal cell carcinoma excision History of local excision of skin lesion History of cystoscopy Hx of submandibular gland removal Hx of tubal ligation Hx of total thyroidectomy History of thyroid surgery Social History (Updated 10/18/24 @ 17:40 by Bernadette Ponce) housing: house Smoking Status: Former smoker alcohol intake: current alcohol intake frequency: holidays/special occasions only details: 1 glass of wine substance use type: does not use additional social history: Does Not Take Aspirin Does Not Take Ibuprofen EXAM Physical Exam Const Vital Signs: 10/18/24 17:16 10/18/24 17:40 10/18/24 18:45 Temperature 97.8 F 98.6 F 98.7 F Temperature Source Oral Oral Temporal Pulse Rate 56 L 58 L 62 Respiratory Rate 14 20 H 18 Blood Pressure 139/69 H 132/80 H 128/88 H Blood Pressure Mean 92 97 101 Pulse Ox 97 99 100 Oxygen Delivery Method Room Air Room Air 10/18/24 19:23 10/18/24 20:00 Temperature 97.9 F 97.9 F Temperature Source Oral Pulse Rate 52 L 51 L Respiratory Rate 16 18 Blood Pressure 176/44 H 147/58 H Blood Pressure Mean 88 87 Pulse Ox 92 92 Oxygen Delivery Method Room Air MDM MDM MDM Narrative Medical decision making narrative: HISTORY OF PRESENT ILLNESS: Chief complaint: Confusion 79-year-old F history of hypertension, former smoker, hypothyroidism, breast cancer, rheumatoid arthritis presents with concern for worsening confusion. Per the patient's son the patient had increased confusion. He notes previous memory issues however they are worsening. Son states she complained of shortness of breath today. No report of falls or chest pain. REVIEW OF SYSTEMS: Pertinent positives: Confusion, shortness of breath Pertinent negatives: As per HPI PHYSICAL EXAM: Nursing triage notes reviewed, Vital signs reviewed Constitutional: please see mdm HENT: MMM, no nasal cell carcinoma lesion to the forehead Eyes: Pupils equal round and reactive to [...] : No CVAT Extremities: No edema Neuro: Alert but not oriented to person or place or time cranial nerves II through XII intact, 5/5 strength in all present extremities. Intact sensation to light touch in all present extremities, 2+ reflexes bilateral patella tendons. Skin: No rash or lesions noted (more content not included)... Normal [facility] Erythrocyte distribution wid th ratioOrdered By: Vincent Brumfield on 10-18-2024 Erythrocyte distribution width (RBC) [Ratio] 15.6 % High 11.6-14.6 [facility] Erythrocyte distribution wid th standard deviationOrdered By: Vincent Brumfield on 10-18-2024 Erythrocyte distribution width (RBC) [Ratio] 47.4 fl High 35.1-43.9 [facility] Glomerular filtration rate ( GFR) estimation/1.73 sq m using serum, plasma, or whole bOrdered By: Vincent Brumfield on 10-18-2024 GFR/1.73 sq M.predicted among non-blacks MDRD (S/P/Bld) [Vol rate/Area] 41 mL/min/{1.73_m2} Low >60 [facility] Comment on above: mL/min/1.73m2 CKD-EP I Creatinine Equation (2020) H AND P Exam - [facility] 10-18-2024 H&P Exam - Hospitalist [facility] Medical Records Department [address] [place] [address] H P Exam - Hospitalist 10/18/242029 MR#: [id number] Acct: [id number] Name: SHAGUFTA GUTIERREZ Rep #: [id number] : 1945 79 From: Oksana Fortune MD PCP: Dr. Russell Shannon, DO Status:ADM IN Location: [facility] NF381-5 HPI - General General Date of Admission: 10/18/24 Date of Service: 10/18/24 Chief Complaint: AMS HPI Narrative SHAGUFTA GUTIERREZ, is a 79-year-old female history of hypertension, breast cancer, memory impairment, hypothyroidism, basal cell carcinoma of the scalp who presented [facility] ED 10/18/2024 due to some confusion on top of her usual memory problems and she complained of some shortness of breath today. In the ED patient afebrile, heart rate 56 and blood pressure 139/69, respiratory rate 14 and pulse ox 97% on room air. CBC with white count 8.6, hemoglobin 12.3, CMP with a BUN of 36 and a creatinine of 1.32, BUN of 36 and creatinine 1.32, glucose 104. Troponin 29, brain CT with no intracranial hemorrhage. Chest x-ray demonstrated extensive pulmonary opacities worrisome for malignancy/metastatic disease. UA obtained which was suspicious for infection. Patient given antibiotics and hospitalist contacted for admission. Patient evaluated at bedside with son present, son provided most of the history as patient is confused and has a difficult time answering questions, she has had difficulties with her memory for 3 years however has been worse over the past 3 to 4 days and she has been increasingly very tired and fatigued recently, shortness of breath she only complained of today without cough or fever. Has some constant sinus problems but nothing new, denies chest pain or diarrhea or abdominal pain. She is unsure if she has had any urinary changes [facility] Medical History Basal cell carcinoma of scalp Wears glasses Cancer Forgetfulness Anxiety Thyroid disease Arthritis Difficulty swallowing Former smoker Hypertension History of echocardiogram History of stress test Former smoker Neoplasm of skin of scalp Home Medications ???Medication ???Instructions ???Recorded ???Last Taken ???Type levothyroxine 100 mcg tablet 50 mcg PO DAILY 03/07/21 03/13/21 History losartan 25 mg tablet 100 mg PO QHS 03/07/21 Unknown His tory levothyroxine 50 mcg capsule 100 mcg PO IGNACIO 03/10/21 Unknown His tory propranolol 60 mg capsule,24 60 mg PO QHS 03/10/21 Unknown Hist ory hr,extended release vitamin B12 500 mcg-folic acid 400 1 tab PO DAILY 03/10/21 Unknown History mcg tablet donepezil 10 mg tablet 10 mg PO DAILY 09/17/23 Unknown Hi story memantine 5 mg tablet 5 mg PO BID 09/17/23 Unknown Histo ry levothyroxine 75 mcg tablet 75 mcg PO DAILY 10/18/24 Unknown H istory losartan 100 mg tablet 100 mg PO DAILY 10/18/24 Unknown H istory sertraline 50 mg tablet 50 mg PO DAILY 10/18/24 Unknown Hi story Allergy/AdvReac Type Severity Reaction Status Date / Time codeine Allergy Other Verified 10/18/24 17:16 simvastatin Allergy Other Verified 10/18/24 17:16 Family History Mother Hypertension CVA (cerebral vascular accident) Other No pertinent family history Surgical History History of basal cell carcinoma excision History of local excision of skin lesion History of cystoscopy Hx of submandibular gland removal Hx of tubal ligation Hx of total thyroidectomy History of thyroid surgery Social History (Updated 10/18/24 @ 17:40 by Bernadette Ponce) housing: house Smoking Status: Former smoker alcohol intake: current alcohol intake frequency: holidays/special occasions only details: 1 glass of wine substance use type: does not use additional social history: Does Not Take Aspirin Does Not Take Ibuprofen ROS ROS Narrative General: Denies fever/chills HENT: Denies headache, some problems with nasal congestion EYES: Denies changes in vision Resp: Denies cough, increased shortness of breath today Cardiac: Denies chest pain GI: Denies abdominal pain, denies changes in bowel, denies nausea/vomiting : Unsure if she has had changes in urination Extremity: Denies swelling MSK: Feels generally weak and tired Neuro: Denies any numbness/tingling Skin: Has basal cell on forehead Psychiatric: Patient reports she feels lost Vital Signs Vital Signs Vital Signs: 10/18/24 17:16 10/18/24 17:40 10/18/24 18:45 Temperature 97.8 F 98.6 F 98.7 F Temperature Source Oral Oral Temporal Pulse Rate 56 L 58 L 62 Respiratory Rate 14 20 H 18 Blood Pressure 139/69 H 132/80 H 128/88 H Blood Pressure Mean 92 97 101 Pulse Ox 97 99 100 Oxygen Delivery Method Room Air Room (more content not included)... Normal [facility] Hematocrit Auto (Bld) [Volum e fraction]Ordered By: Vincent Brumfield on 10-18-2024 Hematocrit (Bld) [Volume fraction] 38.0 % 37-47 [facility] Hemoglobin measurementOrdere d By: Vincent Brumfield on 10-18-2024 Hemoglobin (Bld) [Mass/Vol] 12.3 g/dL 12.0-15.0 [facility] Ketones Test strip Ql (U)Ord ered By: Vincent Brumfield on 10-18-2024 Ketones Ql (U) Negative Negative [facility] L501.4021on 10-18-2024 Trop T High Sen 29 ng/L High <=14 [facility] Comment on above: Performed By: #### L 501.4021 ####[facility] [address] [place], [address] Laboratory - Chemistry and C hemistry - challengeOrdered By: Vincent Brumfield on 10-18-2024 AST [Catalytic activity/Vol] 67 U/L High <32 [facility] MCV (mean corpuscular volume ) determinationOrdered By: Vincent Brumfield on 10-18-2024 MCV (RBC) [Entitic vol] 85.8 fL 81-[address] [facility] Mean corpuscular hemoglobin (MCH) determinationOrdered By: Vincent Brumfield on 10-18-2024 MCH (RBC) [Entitic mass] 27.8 pg 27.0-32.0 [facility] Mean corpuscular hemoglobin concentration (MCHC) determinationOrdered By: Vincent Brumfield on 10-18-2024 MCHC (RBC) [Mass/Vol] 32.4 g/dL 32-36 [facility] Mean platelet volume determi nationOrdered By: Vincent Brumfield on 10-18-2024 Platelet mean volume (Bld) [Entitic vol] 9.4 fL 6.2-12.0 [facility] Microscopic analysis of urin e for red blood cells (RBC)Ordered By: Vincent Brumfield on 10-18-2024 Microscopic analysis of urine for red blood cells (RBC) 0-5 SEEN /hpf 0-5 [facility] Mucus LM Ql (Urine sed)Order ed By: Vincent Brumfield on 10-18-2024 Mucus Ql (Urine sed) 0 SEEN /hpf [facility] Nitrite Test strip Ql (U)Ord ered By: Vincent Brumfield on 10-18-2024 Nitrite Ql (U) Positive High Negative [facility] Platelet countOrdered By: Gwendolyn Brumfield on 10-18-2024 Platelets (Bld) [#/Vol] 317 10*3/uL 150-450 [facility] Potassium measurement (mass/ volume)Ordered By: Vincent Brumfield on 10-18-2024 Potassium (Unsp spec) [Mass/Vol] 3.8 mmol/L 3.3-5.1 [facility] Protein Test strip Ql (U)Ord ered By: Vincent Brumfield on 10-18-2024 Protein Ql (U) 30 mg/dl High Negative [facility] RBC Auto (Bld) [#/Vol]Ordere d By: Vincent Brumfield on 10-18-2024 RBC (Bld) [#/Vol] 4.43 10*6/uL 4.2-5.4 [facility] Serum creatinine measurement (mass/volume)Ordered By: Vincent Brumfield on 10-18-2024 Creatinine [Mass/Vol] 1.32 mg/dL High 0.70-1.20 [facility] Serum globulin measurementOr dered By: Vincent Brumfield on 10-18-2024 Globulin (S) [Mass/Vol] 3.2 g/dL 2.2-4.[address] [facility] Serum glucose measurement (m ass/volume)Ordered By: Vincent Brumfield on 10-18-2024 Glucose [Mass/Vol] 104 mg/dL High 70-99 [facility] Serum or plasma alanine jordan otransferase (ALT) measurementOrdered By: Vincent Brumfield on 10-18-2024 ALT [Catalytic activity/Vol] 24 U/L <35 [facility] Serum or plasma albumin shon urement (mass/volume)Ordered By: Vincent Brumfield on 10-18-2024 Albumin [Mass/Vol] 3.2 g/dL Low 3.4-4.8 [facility] Serum or plasma albumin/glob ulin mass ratioOrdered By: Vincent Brumfield on 10-18-2024 Albumin/Globulin [Mass ratio] 1.0 {ratio} 0.9-2.4 [facility] Serum or plasma alkaline anival sphatase measurementOrdered By: Vincent Brumfield on 10-18-2024 ALP [Catalytic activity/Vol] 100 U/L 35-104 [facility] Serum or plasma calcium shon urement (mass/volume)Ordered By: Vincent Brumfield on 10-18-2024 Calcium [Mass/Vol] 9.9 mg/dL 7.6-11.0 [facility] Serum or plasma urea nitroge n measurement (mass/volume)Ordered By: Vincent Brumfield on 10-18-2024 Urea nitrogen [Mass/Vol] 36 mg/dL High 4-19 [facility] Sodium levelOrdered By: Scout Brumfield on 10-18-2024 Sodium [Moles/Vol] 138 mmol/L 133-145 [facility] Squamous epithelial cells de tection in urine sediment by light microscopyOrdered By: Vincent Brumfield on 10-18-2024 Epithelial cells.squamous LM Ql (Urine sed) 0-5 SEEN /hpf 5-10 [facility] Total proteinOrdered By: Jb Brumfield on 10-18-2024 Protein [Mass/Vol] 6.4 g/dL 5.9-8.4 [facility] Troponin T HS 2 HRon 025 Trop T High Sen 27 ng/L High <=14 [facility] Comment on above: Performed By: #### L 499.0042 #### [facility] Laboratory [facility] [place], [address] Troponin T.cardiac [Mass/vol ume] in Serum or Plasma by High sensitivity methodOrdered By: Vincent Brumfield on 10-18-2024 Troponin T.cardiac High sensitivity method [Mass/Vol] 27 ng/L High <14 [facility] Troponin T.cardiac High sensitivity method [Mass/Vol] 29 ng/L High <14 [facility] Urinalysis, Completeon 10-18 BACTERIA 3+ /hpf Normal None Seen [facility] Comment on above: Order Comment: CLEAN CATCH Performed By: #### L 400.0001 ####[facility] [address] [place], [address] EPI,SQUAMOUS 0-5 SEEN Normal 5-10 [facility] Comment on above: Order Comment: CLEAN CATCH Performed By: #### L 400.0001 ####[facility] [address] [place], [address] RBC 0-5 SEEN Normal 0-5 [facility] Comment on above: Order Comment: CLEAN CATCH Performed By: #### L 400.0001 ####[facility] [address] [place], [address] WBC 5-10 SEEN Normal 0-5 [facility] Comment on above: Order Comment: CLEAN CATCH Performed By: #### L 400.0001 ####[facility] [address] [place], [address] Mucus Ql (Urine sed) 0 SEEN Normal [facility] Comment on above: Order Comment: CLEAN CATCH Performed By: #### L 400.0001 ####[facility] [address] [place], [address] Urine clarityOrdered By: Jb Brumfield on 10-18-2024 Clarity (U) Sl. Cloudy Clear [facility] Urine color determinationOrd ered By: Vincent Brumfiedl on 10-18-2024 Color (U) Yellow Yellow [facility] Urine glucose detectionOrder ed By: Vincent Brumfield on 10-18-2024 Glucose Ql (U) Normal mg/dl Normal [facility] Urine leukocyte esterase det ection by dipstickOrdered By: Vincent Brumfield on 10-18-2024 Leukocyte esterase Test strip Ql (U) 500 /ul High Negative [facility] Urine pHOrdered By: Vincent sexton on 10-18-2024 pH (U) 5.0 [pH] 5.0 - 8.0 [facility] Urine sediment bacteria coun t by microscopy (number/high power field)Ordered By: Vincent Brumfield on 10-18-2024 Bacteria LM.HPF (Urine sed) [#/Area] 3 /[HPF] None Seen [facility] Urine specific gravity measu rementOrdered By: Vincent Brumfield on 10-18-2024 Specific gravity (U) [Rel density] 1.025 1.002-1.030 [facility] Urine urobilinogen measureme ntOrdered By: Vincent Brumfield on 10-18-2024 Urobilinogen Ql (U) Normal mg/dl Normal [facility] White blood cell (WBC) count Ordered By: Vincent Brumfield on 10-18-2024 WBC (Bld) [#/Vol] 8.6 10*3/uL 4.4-11.0 [facility] White blood cell countOrdere d By: Vincent Brumfield on 10-18-2024 White blood cell count 5-10 SEEN /hpf 0-5 [facility] Absolute lymphocyte countOrd ered By: Russell Shannon on 08-07-2024 Lymphocytes Auto (Unsp spec) [#/Vol] 0.98 10*3/uL 0.83-4.51 [facility] Absolute neutrophil countOrd ered By: Russell Shannon on 08-07-2024 Neutrophils (Bld) [#/Vol] 5.8 10*3/uL 2.0-7.7 [facility] Anion gap in Serum or Plasma Ordered By: Russell Shannon on 08-07-2024 Anion gap [Moles/Vol] 12 mmol/L 5-15 [facility] Automated lymphocyte count a s percentage of total leukocytesOrdered By: Russell Shannon on 08-07-2024 Lymphocytes/100 WBC Auto (Unsp spec) 12.5 % Low 19-41 [facility] BUN/creatinine ratioOrdered By: Russell Shannon on 08-07-2024 Urea nitrogen/Creatinine [Mass ratio] 22.5 mg/mg High 10-20 [facility] Basophil percentageOrdered B y: Russell Shannon on 08-07-2024 Basophils/100 WBC (Bld) 1.0 % 0-[address] [facility] Bilirubin, totalOrdered By: Russell Shannon on 08-07-2024 Bilirubin [Mass/Vol] 0.50 mg/dL 0.00-1.30 [facility] CBC W/Diff, Automatedon 06-2 Absolute Lymph 0.98 X10 3/uL Normal 0.83-4.51 [facility] Comment on above: Performed By: #### L 100.0100, L500.4050, L501.9520, L506.0400 ####[facility] [address] [place], [address] Absolute Neut 5.8 X10 3/uL Normal 2.0-7.7 [facility] Comment on above: Performed By: #### L 100.0100, L500.4050, L501.9520, L506.0400 ####[facility] [address] [place], [address] Basophils/100 WBC (Bld) 1.0 % Normal 0-[address] [facility] Comment on above: Performed By: #### L 100.0100, L500.4050, L501.9520, L506.0400 ####[facility] [address] [place], [address] Eosinophils/100 WBC (Bld) 4.3 % Normal 0-5 [facility] Comment on above: Performed By: #### L 100.0100, L500.4050, L501.9520, L506.0400 ####[facility] [address] [place], [address] Erythrocyte distribution width (RBC) [Ratio] 13.4 % Normal 11.6-14.6 [facility] Comment on above: Performed By: #### L 100.0100, L500.4050, L501.9520, L506.0400 ####[facility] [address] [place], [address] Hematocrit (Bld) [Volume fraction] 38.6 % Normal 37-47 [facility] Comment on above: Performed By: #### L 100.0100, L500.4050, L501.9520, L506.0400 ####[facility] [address] [place], [address] Hemoglobin (Bld) [Mass/Vol] 12.1 g/dL Normal 12.0-15.0 [facility] Comment on above: Performed By: #### L 100.0100, L500.4050, L501.9520, L506.0400 ####[facility] [address] [place], [address] IG% 0.400 Normal 0.0-0.9 [facility] Comment on above: Result Comment: IG% - Immature Granulocytes (promyelocytes, myelocytes and metamyelocytes) > 1% indicates that a LEFT SHIFT is Present. Performed By: #### L 100.0100, L500.4050, L501.9520, L506.0400 ####[facility] [address] [place], [address] Lymphocytes/100 WBC (Bld) 12.5 % Low 19-41 [facility] Comment on above: Performed By: #### L 100.0100, L500.4050, L501.9520, L506.0400 ####[facility] [address] [place], [address] MCH (RBC) [Entitic mass] 27.1 pg Normal 27.0-32.0 [facility] Comment on above: Performed By: #### L 100.0100, L500.4050, L501.9520, L506.0400 ####[facility] [address] [place], [address] MCHC (RBC) [Mass/Vol] 31.3 g/dL Low 32-36 [facility] Comment on above: Performed By: #### L 100.0100, L500.4050, L501.9520, L506.0400 ####[facility] [address] [place], [address] MCV (RBC) [Entitic vol] 86.5 fL Normal 81-[address] [facility] Comment on above: Performed By: #### L 100.0100, L500.4050, L501.9520, L506.0400 ####[facility] [address] [place], [address] Monocytes/100 WBC (Bld) 8.0 % Normal 0-10 [facility] Comment on above: Performed By: #### L 100.0100, L500.4050, L501.9520, L506.0400 ####[facility] [address] [place], [address] Neutrophils/100 WBC (Bld) 73.8 % High 47-70 [facility] Comment on above: Performed By: #### L 100.0100, L500.4050, L501.9520, L506.0400 ####[facility] [address] [place], [address] Nucleated RBC (Bld) [#/Vol] 0 10*3/uL Normal 0-5 [facility] Comment on above: Performed By: #### L 100.0100, L500.4050, L501.9520, L506.0400 ####[facility] [address] [place], [address] Platelet mean volume (Bld) [Entitic vol] 9.6 fL Normal 6.2-12.0 [facility] Comment on above: Performed By: #### L 100.0100, L500.4050, L501.9520, L506.0400 ####[facility] [address] [place], [address] Platelets (Bld) [#/Vol] 323 10*3/uL Normal 150-450 [facility] Comment on above: Performed By: #### L 100.0100, L500.4050, L501.9520, L506.0400 ####[facility] [address] [place], [address] RBC (Bld) [#/Vol] 4.46 10*6/uL Normal 4.2-5.4 [facility] Comment on above: Performed By: #### L 100.0100, L500.4050, L501.9520, L506.0400 ####[facility] [address] [place], [address] RDW SD 42.4 fl Normal 35.1-43.9 [facility] Comment on above: Performed By: #### L 100.0100, L500.4050, L501.9520, L506.0400 ####[facility] [address] [place], [address] WBC (Bld) [#/Vol] 7.9 10*3/uL Normal 4.4-11.0 [facility] Comment on above: Performed By: #### L 100.0100, L500.4050, L501.9520, L506.0400 ####[facility] [address] [place], [address] Carbon dioxide, total [Moles /volume] in Central venous bloodOrdered By: Russell Shannon on 08-07-2024 CO2 [Moles/Vol] 25.3 mmol/L 21.0-32.0 [facility] Chloride assayOrdered By: Akbar Shannon on 08-07-2024 Chloride [Moles/Vol] 104 mmol/L 98-108 [facility] Comprehensive Metabolic Prof ilon 08-07-2024 Albumin [Mass/Vol] 4.0 g/dL Normal 3.4-4.8 [facility] Comment on above: Performed By: #### L 100.0100, L500.4050, L501.9520, L506.0400 ####[facility] [address] [place], [address] Albumin/Globulin [Mass ratio] 1.3 {ratio} Normal 0.9-2.4 [facility] Comment on above: Performed By: #### L 100.0100, L500.4050, L501.9520, L506.0400 ####[facility] [address] [place], [address] ALK PHOS 84 U/L Normal 35-104 [facility] Comment on above: Performed By: #### L 100.0100, L500.4050, L501.9520, L506.0400 ####[facility] [address] [place], [address] ALT [Catalytic activity/Vol] 26 U/L Normal <=34 [facility] Comment on above: Performed By: #### L 100.0100, L500.4050, L501.9520, L506.0400 ####[facility] [address] [place], [address] AST [Catalytic activity/Vol] 43 U/L High <=31 [facility] Comment on above: Performed By: #### L 100.0100, L500.4050, L501.9520, L506.0400 ####[facility] [address] [place], [address] Bilirubin [Mass/Vol] 0.50 mg/dL Normal 0.00-1.30 [facility] Comment on above: Performed By: #### L 100.0100, L500.4050, L501.9520, L506.0400 ####[facility] [address] [place], [address] BUN/CRE 22.5 RATIO High 10-20 [facility] Comment on above: Performed By: #### L 100.0100, L500.4050, L501.9520, L506.0400 ####[facility] [address] [place], [address] Calcium [Mass/Vol] 10.4 mg/dL Normal 7.6-11.0 [facility] Comment on above: Performed By: #### L 100.0100, L500.4050, L501.9520, L506.0400 ####[facility] [address] [place], [address] Chloride [Moles/Vol] 104 mmol/L Normal 98-108 [facility] Comment on above: Performed By: #### L 100.0100, L500.4050, L501.9520, L506.0400 ####[facility] [address] [place], [address] CO2 [Moles/Vol] 25.3 mmol/L Normal 21.0-32.0 [facility] Comment on above: Performed By: #### L 100.0100, L500.4050, L501.9520, L506.0400 ####[facility] [address] [place], [address] Creatinine [Mass/Vol] 0.98 mg/dL Normal 0.70-1.20 [facility] Comment on above: Performed By: #### L 100.0100, L500.4050, L501.9520, L506.0400 ####[facility] [address] [place], [address] GAP 12 Normal 5-15 [facility] Comment on above: Performed By: #### L 100.0100, L500.4050, L501.9520, L506.0400 ####[facility] [address] [place], [address] GFR/1.73 sq M.predicted among non-blacks MDRD (S/P/Bld) [Vol rate/Area] 58 mL/min/{1.73_m2} Low >60 [facility] Comment on above: Result Comment: mL/m in/1.73m2 CKD-EPI Creatinine Equation (2020) Performed By: #### L 100.0100, L500.4050, L501.9520, L506.0400 ####[facility] [address] [place], [address] Globulin (S) [Mass/Vol] 3.1 g/dL Normal 2.2-4.2 [facility] Comment on above: Performed By: #### L 100.0100, L500.4050, L501.9520, L506.0400 ####[facility] [address] [place], [address] Glucose [Mass/Vol] 89 mg/dL Normal 70-99 [facility] Comment on above: Performed By: #### L 100.0100, L500.4050, L501.9520, L506.0400 ####[facility] [address] [place], [address] Potassium [Moles/Vol] 3.9 mmol/L Normal 3.3-5.1 [facility] Comment on above: Performed By: #### L 100.0100, L500.4050, L501.9520, L506.0400 ####[facility] [address] [place], [address] Sodium [Moles/Vol] 142 mmol/L Normal 133-145 [facility] Comment on above: Performed By: #### L 100.0100, L500.4050, L501.9520, L506.0400 ####[facility] [address] [place], [address] T PROT 7.1 g/dL Normal 5.9-8.4 [facility] Comment on above: Performed By: #### L 100.0100, L500.4050, L501.9520, L506.0400 ####[facility] [address] [place], [address] Urea nitrogen [Mass/Vol] 22 mg/dL High 4-19 [facility] Comment on above: Performed By: #### L 100.0100, L500.4050, L501.9520, L506.0400 ####[facility] [address] [place], [address] Eosinophil percentageOrdered By: Russell Shannon on 08-07-2024 Eosinophils/100 WBC (Bld) 4.3 % 0-5 [facility] Erythrocyte distribution wid th ratioOrdered By: Russell Shannon on 08-07-2024 Erythrocyte distribution width (RBC) [Ratio] 13.4 % 11.6-14.6 [facility] Erythrocyte distribution wid th standard deviationOrdered By: Russell Shannon on 08-07-2024 Erythrocyte distribution width (RBC) [Ratio] 42.4 fl 35.1-43.9 [facility] Glomerular filtration rate ( GFR) estimation/1.73 sq m using serum, plasma, or whole bOrdered By: Russell Shannon on 08-07-2024 GFR/1.73 sq M.predicted among non-blacks MDRD (S/P/Bld) [Vol rate/Area] 58 mL/min/{1.73_m2} Low >60 [facility] Comment on above: mL/min/1.73m2 CKD-EP I Creatinine Equation (2020) Hematocrit Auto (Bld) [Volum e fraction]Ordered By: Russell Shannon on 08-07-2024 Hematocrit (Bld) [Volume fraction] 38.6 % 37-47 [facility] Hemoglobin measurementOrdere d By: Russell Shannon on 08-07-2024 Hemoglobin (Bld) [Mass/Vol] 12.1 g/dL 12.0-15.0 [facility] Immature granulocytes/100 WB C Auto (Bld)Ordered By: Russell Shannon on 08-07-2024 Immature granulocytes/100 WBC (Bld) 0.400 % 0.0-0.9 [facility] Comment on above: IG% - Immature Granu locytes (promyelocytes, myelocytes and metamyelocytes) > 1% indicates that a LEFT SHIFT is Present. Laboratory - Chemistry and C hemistry - challengeOrdered By: Russell Shannon on 08-07-2024 AST [Catalytic activity/Vol] 43 U/L High <32 [facility] MCV (mean corpuscular volume ) determinationOrdered By: Russell Shannon on 08-07-2024 MCV (RBC) [Entitic vol] 86.5 fL 81-[address] [facility] Mean corpuscular hemoglobin (MCH) determinationOrdered By: Russell Shannon on 08-07-2024 MCH (RBC) [Entitic mass] 27.1 pg 27.0-32.0 [facility] Mean corpuscular hemoglobin concentration (MCHC) determinationOrdered By: Russell Shannon on 08-07-2024 MCHC (RBC) [Mass/Vol] 31.3 g/dL Low 32-36 [facility] Mean platelet volume determi nationOrdered By: Russell Shannon on 08-07-2024 Platelet mean volume (Bld) [Entitic vol] 9.6 fL 6.2-12.0 [facility] Monocyte percentageOrdered B y: Russell Shannon on 08-07-2024 Monocytes/100 WBC (Bld) 8.0 % 0-[address] [facility] Neutrophil percentageOrdered By: Russell Shannon on 08-07-2024 Neutrophils/100 WBC (Bld) 73.8 % High 47-70 [facility] Nucleated red blood cell per centageOrdered By: Russell Shannon on 08-07-2024 Nucleated RBC/100 WBC (Bld) [Ratio] 0 % 0-5 [facility] Platelet countOrdered By: Akbar Shannon on 08-07-2024 Platelets (Bld) [#/Vol] 323 10*3/uL 150-450 [facility] Potassium measurement (mass/ volume)Ordered By: Russell Shannon on 08-07-2024 Potassium (Unsp spec) [Mass/Vol] 3.9 mmol/L 3.3-5.1 [facility] RBC Auto (Bld) [#/Vol]Ordere d By: Russell Shannon on 08-07-2024 RBC (Bld) [#/Vol] 4.46 10*6/uL 4.2-5.4 [facility] Serum creatinine measurement (mass/volume)Ordered By: Russell Shannon on 08-07-2024 Creatinine [Mass/Vol] 0.98 mg/dL 0.70-1.20 [facility] Serum globulin measurementOr dered By: Russell Shannon on 08-07-2024 Globulin (S) [Mass/Vol] 3.1 g/dL 2.2-4.[address] [facility] Serum glucose measurement (m ass/volume)Ordered By: Russell Shannon on 08-07-2024 Glucose [Mass/Vol] 89 mg/dL 70-99 [facility] Serum or plasma alanine jordan otransferase (ALT) measurementOrdered By: Russell Shannon on 08-07-2024 ALT [Catalytic activity/Vol] 26 U/L <35 [facility] Serum or plasma albumin shon urement (mass/volume)Ordered By: Russell Shannon on 08-07-2024 Albumin [Mass/Vol] 4.0 g/dL 3.4-4.8 [facility] Serum or plasma albumin/glob ulin mass ratioOrdered By: Russell Shannon on 08-07-2024 Albumin/Globulin [Mass ratio] 1.3 {ratio} 0.9-2.4 [facility] Serum or plasma alkaline anival sphatase measurementOrdered By: Russell Shannon on 08-07-2024 ALP [Catalytic activity/Vol] 84 U/L 35-104 [facility] Serum or plasma calcium shon urement (mass/volume)Ordered By: Russell Shannon on 08-07-2024 Calcium [Mass/Vol] 10.4 mg/dL 7.6-11.0 [facility] Serum or plasma urea nitroge n measurement (mass/volume)Ordered By: Russell Shannon on 08-07-2024 Urea nitrogen [Mass/Vol] 22 mg/dL High 4-19 [facility] Sodium levelOrdered By: Russell Shannon on 08-07-2024 Sodium [Moles/Vol] 142 mmol/L 133-145 [facility] T4 Free Directon 08-07-2024 T4 FREE DIRECT 1.60 ng/dL High 0.76-1.46 [facility] Comment on above: Performed By: #### L 100.0100, L500.4050, L501.9520, L506.0400 ####[facility] [address] [place], [address] T4 freeOrdered By: Russell lino on 08-07-2024 Free T4 [Mass/Vol] 1.60 ng/dL High 0.76-1.46 [facility] TSH DL <= 0.005 mIU/L QnOrde red By: Russell Shannon on 08-07-2024 TSH Qn 5.620 uIU/mL High 0.300-4.200 [facility] Thyroid Stim Hormone (TSH)on 08-07-2024 TSH 5.620 uIU/mL High 0.300-4.200 [facility] Comment on above: Performed By: #### L 100.0100, L500.4050, L501.9520, L506.0400 ####[facility] [address] [place], [address] Total proteinOrdered By: Ellie Shannon on 08-07-2024 Protein [Mass/Vol] 7.1 g/dL 5.9-8.4 [facility] White blood cell (WBC) count Ordered By: Russell Shannon on 08-07-2024 WBC (Bld) [#/Vol] 7.9 10*3/uL 4.4-11.0 [facility] Radiation Oncology Visiton 0 02-13-2024 Radiation Oncology Visit [facility] [address] [place] [address] OFFICE VISIT Date of Service: 02/13/24 1009 MR#: [id number] Acct: [id number] Name: SHAGUFTA GUTIERREZ Angelique Rep #: [id number] : 1945 From: Ken Ani DO Age/Sex: 78/F [place] [facility] Status: Signed Intake Vital Signs 11/14/23 [...] 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 [...] breast consist (more content not included)... Normal [facility] 12 Lead EKGon 12-31-2023 12 Lead EKG [facility] [address] [place] [address] 12 Lead EKG 12/31/23 0618 MR#: [id number] Acct: [id number] Name: SHAGUFTA GUTIERREZ Rep #: [id number] : 1945 78 From: Vladislav Mendez MD [...] Left ventricular hypertrophy with QRS widening ( Kent product , Romhilt-Rodriguez ) Cannot rule out Septal infarct , age undetermined Abnormal ECG Confirmed by VLADISLAV MENDEZ MD ([id number]), publishing editor SHANNON MONSALVE ([id number]) on 12/31/2023 1:54:17 PM Referred By: Confirmed By: VLADISLAV MENDEZ MD 12/31/23 0433 Date Vladislav Mendez MD CC: Dr. Russell Shannon DO; Dr. Vincent Brumfield DO Signed [facility] Brain/Head without Contrasto n 12-31-2023 Brain/Head without Contrast [facility] [address] [address] Brain/Head without Contrast MR#: [id number] Acct: [id number] Name: SHAGUFTA GUTIERREZ Rep #: [id number] : 1945 F 78 From: Cristi abdalla MD PCP: Dr. Russell Shannon DO Status: REG ER Study: Brain/Head without Contrast Date of Exam: 12/12 11/04 Exam# [id number] Ordering Dr: Vincent Brumfield DO [id number] EXAM: CT HEAD WITHOUT INTRAVENOUS CONTRAST CLINICAL [...] Electronically Signed: Cristi Stewart MD at 7:25 EST , CC: Dr. Russell Shannon, DO; Dr. Vincent Brumfield, DO Patient Accounts Manager: Signed Normal [facility] CBC-Complete Blood Cnt No Di ffon 12-31-2023 Erythrocyte distribution width (RBC) [Ratio] 13.4 % Normal 11.6-14.6 [facility] Comment on above: Performed By: #### L 501.4020, L500.4050, L100.0500 #### [facility] [address] [place], [address] Hematocrit (Bld) [Volume fraction] 39.4 % Normal 37-47 [facility] Comment on above: Performed By: #### L 501.4020, L500.4050, L100.0500 #### [facility] [address] [place], [address] Hemoglobin (Bld) [Mass/Vol] 12.7 g/dL Normal 12.0-15.0 [facility] Comment on above: Performed By: #### L 501.4020, L500.4050, L100.0500 #### [facility] [address] [place], [address] MCH (RBC) [Entitic mass] 28.8 pg Normal 27.0-32.0 [facility] Comment on above: Performed By: #### L 501.4020, L500.4050, L100.0500 #### [facility] [address] [place], [address] MCHC (RBC) [Mass/Vol] 32.2 g/dL Normal 32-36 [facility] Comment on above: Performed By: #### L 501.4020, L500.4050, L100.0500 #### [facility] [address] [place], [address] MCV (RBC) [Entitic vol] 89.3 fL Normal 81-[address] [facility] Comment on above: Performed By: #### L 501.4020, L500.4050, L100.0500 #### [facility] [address] [place], [address] Platelet mean volume (Bld) [Entitic vol] 9.7 fL Normal 6.2-12.0 [facility] Comment on above: Performed By: #### L 501.4020, L500.4050, L100.0500 #### [facility] [address] [place], [address] Platelets (Bld) [#/Vol] 244 10*3/uL Normal 150-450 [facility] Comment on above: Performed By: #### L 501.4020, L500.4050, L100.0500 #### [facility] [address] [place], [address] RBC (Bld) [#/Vol] 4.41 10*6/uL Normal 4.2-5.4 [facility] Comment on above: Performed By: #### L 501.4020, L500.4050, L100.0500 #### [facility] [address] [place], [address] RDW SD 44.1 fl High 35.1-43.9 [facility] Comment on above: Performed By: #### L 501.4020, L500.4050, L100.0500 #### [facility] [address] [place], [address] WBC (Bld) [#/Vol] 10.0 10*3/uL Normal 4.4-11.0 [facility] Comment on above: Performed By: #### L 501.4020, L500.4050, L100.0500 #### [facility] [address] [place], [address] Chest 1 View (Portable)on Chest 1 View (Portable) [facility] Imaging Services [address] [place], [place] [address] Chest 1 View (Portable) MR#: [id number] Acct: [id number] Name: SHAGUFTA GUTIERREZ Rep #: [id number] : 1945 F 78 From: Cristi abdalla MD PCP: Dr. Russell Shannon DO Status: REG ER Study: Chest 1 View (Portable) Date of Exam: 12/31/23 Exam# [id number] Ordering Dr: Vincent Brumfield DO [id number] EXAM: XR CHEST, 1 VIEW CLINICAL INDICATION: [...] at 7:28 EST , CC: Dr. Russell Shannon DO; Dr. Vincent Brumfield DO Patient Accounts Manager: Signed Normal [facility] Comprehensive Metabolic Prof ilon 12-31-2023 Albumin [Mass/Vol] 3.3 g/dL Normal 3.2-5.0 [facility] Comment on above: Order Comment: 'TROP ' Serial specimen #1, #2 or #3: 1 Performed By: #### L 501.4020, L500.4050, L100.0500 #### [facility] [address] [place], [address] Albumin/Globulin [Mass ratio] 0.9 {ratio} Normal 0.9-2.4 [facility] Comment on above: Order Comment: 'TROP ' Serial specimen #1, #2 or #3: 1 Performed By: #### L 501.4020, L500.4050, L100.0500 #### [facility] [address] [place], [address] ALK P 99 U/L Normal 45-117 [facility] Comment on above: Order Comment: 'TROP ' Serial specimen #1, #2 or #3: 1 Performed By: #### L 501.4020, L500.4050, L100.0500 #### [facility] [address] [place], [address] ALT [Catalytic activity/Vol] 24 U/L Normal 13-56 [facility] Comment on above: Order Comment: 'TROP ' Serial specimen #1, #2 or #3: 1 Performed By: #### L 501.4020, L500.4050, L100.0500 #### [facility] [address] [place], [address] AST [Catalytic activity/Vol] 26 U/L Normal 15-37 [facility] Comment on above: Order Comment: 'TROP ' Serial specimen #1, #2 or #3: 1 Performed By: #### L 501.4020, L500.4050, L100.0500 #### [facility] [address] [place], [address] Bilirubin [Mass/Vol] 0.50 mg/dL Normal 0.20-1.00 [facility] Comment on above: Order Comment: 'TROP ' Serial specimen #1, #2 or #3: 1 Result Comment: For patients on eltrombopag therapy, use of Dimension [place] TBIL is not recommended. Performed By: #### L 501.4020, L500.4050, L100.0500 #### [facility] [address] [place], [address] BUN/CRE 20.6 RATIO High 10-20 [facility] Comment on above: Order Comment: 'TROP ' Serial specimen #1, #2 or #3: 1 Performed By: #### L 501.4020, L500.4050, L100.0500 #### [facility] [address] [place], [address] CA,Total 9.4 mg/dL Normal 8.5-10.1 [facility] Comment on above: Order Comment: 'TROP ' Serial specimen #1, #2 or #3: 1 Performed By: #### L 501.4020, L500.4050, L100.0500 #### [facility] [address] [place], [address] Chloride [Moles/Vol] 109 mmol/L High 98-107 [facility] Comment on above: Order Comment: 'TROP ' Serial specimen #1, #2 or #3: 1 Performed By: #### L 501.4020, L500.4050, L100.0500 #### [facility] [address] [place], [address] CO2 [Moles/Vol] 31.0 mmol/L Normal 21.0-32.0 [facility] Comment on above: Order Comment: 'TROP ' Serial specimen #1, #2 or #3: 1 Performed By: #### L 501.4020, L500.4050, L100.0500 #### [facility] [address] [place], [address] Creatinine [Mass/Vol] 1.02 mg/dL Normal 0.55-1.02 [facility] Comment on above: Order Comment: 'TROP ' Serial specimen #1, #2 or #3: 1 Result Comment: The validity of the calculated GFR GFRAA in patients over 70 years has not been determined. Clinical correlation is essential. Performed By: #### L 501.4020, L500.4050, L100.0500 #### [facility] [address] [place], [address] ECRCL 29.17 ml/min Normal [facility] Comment on above: Order Comment: 'TROP ' Serial specimen #1, #2 or #3: 1 Performed By: #### L 501.4020, L500.4050, L100.0500 #### [facility] [address] [place], [address] EST GFR - AA 67 mL/min Normal >60 [facility] Comment on above: Order Comment: 'TROP ' Serial specimen #1, #2 or #3: 1 Result Comment: Afri can Palestinian GFR Calc Performed By: #### L 501.4020, L500.4050, L100.0500 #### [facility] [address] [place], [address] GAP 3 Low 5-15 [facility] Comment on above: Order Comment: 'TROP ' Serial specimen #1, #2 or #3: 1 Performed By: #### L 501.4020, L500.4050, L100.0500 #### [facility] [address] [place], [address] GFR/1.73 sq M.predicted among non-blacks MDRD (S/P/Bld) [Vol rate/Area] 55 mL/min/{1.73_m2} Low >60 [facility] Comment on above: Order Comment: 'TROP ' Serial specimen #1, #2 or #3: 1 Result Comment: Non- GFR Calc Performed By: #### L 501.4020, L500.4050, L100.0500 #### [facility] [address] [place], [address] Globulin (S) [Mass/Vol] 3.5 g/dL Normal 2.2-4.[address] [facility] Comment on above: Order Comment: 'TROP ' Serial specimen #1, #2 or #3: 1 Performed By: #### L 501.4020, L500.4050, L100.0500 #### [facility] [address] [place], [address] Glucose [Mass/Vol] 124 mg/dL High 74-106 [facility] Comment on above: Order Comment: 'TROP ' Serial specimen #1, #2 or #3: 1 Result Comment: Fast ing Glucose result from 100 to 125 mg/dL suggests IMPAIRED HOMEOSTASIS per A.D.A. criteria. Performed By: #### L 501.4020, L500.4050, L100.0500 #### [facility] [address] [place], [address] Potassium [Moles/Vol] 3.7 mmol/L Normal 3.5-5.1 [facility] Comment on above: Order Comment: 'TROP ' Serial specimen #1, #2 or #3: 1 Performed By: #### L 501.4020, L500.4050, L100.0500 #### [facility] [address] [place], [address] Sodium [Moles/Vol] 143 mmol/L Normal 136-145 [facility] Comment on above: Order Comment: 'TROP ' Serial specimen #1, #2 or #3: 1 Performed By: #### L 501.4020, L500.4050, L100.0500 #### [facility] [address] [place], [address] T PROT 6.8 g/dL Normal 6.4-8.2 [facility] Comment on above: Order Comment: 'TROP ' Serial specimen #1, #2 or #3: 1 Performed By: #### L 501.4020, L500.4050, L100.0500 #### [facility] [address] [place], [address] Urea nitrogen [Mass/Vol] 21 mg/dL High 7-18 [facility] Comment on above: Order Comment: 'TROP ' Serial specimen #1, #2 or #3: 1 Performed By: #### L 501.4029, L500.4052, L100.0500 #### [facility] [address] [place], [address] Emergency Department Summary on 12-31-2023 Emergency Department Summary [facility] Medical Records Department [address] [place] [address] Emergency Department Summary 12/31/23 MR#: [id number] Acct: [id number] Name: SHAGUFTA GUTIERREZ Rep #: [id number] : 1945 78 From: Vincent Brumfield DO PCP: Dr. Russell Shannon, Status:DEP ER Location: ED HPI History of Present Illness Chief Complaint: Confusion PFSH PFSH Medical History Basal cell carcinoma [...] Oxygen Delivery Method Room Air Room Air MDM MDM MDM Narrative Medical decision making narrative: HISTORY OF [...] x 3 (more content not included)... Normal [facility] L501.4020on 12-31-2023 TROPONIN-I HS 14 pg/mL Normal 3.0-54.0 [facility] Comment on above: Order Comment: 'TROP ' Serial specimen #1, #2 or #3: 1 Result Comment: Mendel saldana Note: New Test Units and Gender Specific Reference Ranges. For more information see Policy Stat Procedure [place] High Sensitivity Troponin (TNIH) and attachments. Performed By: #### L 501.4020, L500.4050, L100.0500 #### [facility] [address] [place], [address] Urinalysis, Completeon 12-30 AMORPHOUS 3+ PHOS Normal [facility] Comment on above: Order Comment: RADHA CTOR TO SPECIFY Performed By: #### L 400.0001 ####[facility] [address] [place], [address] WBC 5-10 SEEN Normal 0-5 [facility] Comment on above: Order Comment: RADHA CTOR TO SPECIFY Performed By: #### L 400.0001 ####[facility] [address] [place], [address] BILIRUBIN URINE Negative Normal Negative [facility] Comment on above: Order Comment: RADHA CTOR TO SPECIFY Performed By: #### L 400.0001 ####[facility] [address] [place], [address] Clarity (U) Cloudy Normal Clear [facility] Comment on above: Order Comment: RDAHA CTOR TO SPECIFY Performed By: #### L 400.0001 ####[facility] [address] [place], [address] Color (U) Yellow Normal Yellow [facility] Comment on above: Order Comment: COLLE CTOR TO SPECIFY Performed By: #### L 400.0001 ####[facility] [address] [place] [address] GLUCOSE, UR Normal Normal Normal [facility] Comment on above: Order Comment: COLLE CTOR TO SPECIFY Performed By: #### L 400.0001 ####[facility] [address] [place] [id number] KETONE UR Negative Normal Negative [facility] Comment on above: Order Comment: RADHA CTOR TO SPECIFY Performed By: #### L 400.0001 ####[facility] [address] [place] [address] LEUK ESTERASE 500 /ul Abnormal Negative [facility] Comment on above: Order Comment: RADHA CTOR TO SPECIFY Performed By: #### L 400.0001 ####[facility] [address] [place] [address] Nitrite Ql (U) Negative Normal Negative [facility] Comment on above: Order Comment: RADHA CTOR TO SPECIFY Performed By: #### L 400.0001 ####[facility] [address] [place] [address] OCCULT BLOOD-UR 25 /ul Abnormal Negative [facility] Comment on above: Order Comment: RADHA CTOR TO SPECIFY Performed By: #### L 400.0001 ####[facility] [address] [place] [id number] pH UR 7.0 Normal 5.0 - 8.0 [facility] Comment on above: Order Comment: RADHA CTOR TO SPECIFY Performed By: #### L 400.0001 ####[facility] [address] [place] [id number] PROT DIPSTX 30 mg/dl Abnormal Negative [facility] Comment on above: Order Comment: RADHA CTOR TO SPECIFY Performed By: #### L 400.0001 ####[facility] [address] [place], [address] SP.GR. DIPSTX 1.010 Normal 1.002-1.030 [facility] Comment on above: Order Comment: RADHA CTOR TO SPECIFY Performed By: #### L 400.0001 ####[facility] [address] [place], [address] UROBILI Normal Normal Normal [facility] Comment on above: Order Comment: RADHA CTOR TO SPECIFY Performed By: #### L 400.0001 ####[facility] [address] [place], [address] BACTERIA 0 SEEN Normal None Seen [facility] Comment on above: Order Comment: RADHA CTOR TO SPECIFY Performed By: #### L 400.0001 ####[facility] [address] [place], [address] EPI,SQUAMOUS 0 SEEN Normal 5-10 [facility] Comment on above: Order Comment: RADHA CTOR TO SPECIFY Performed By: #### L 400.0001 ####[facility] [address] [place], [address] Mucus Ql (Urine sed) 0 SEEN Normal [facility] Comment on above: Order Comment: RADHA CTOR TO SPECIFY Performed By: #### L 400.0001 ####[facility] [address] [place], [address] RBC 0 SEEN Normal 0-5 [facility] Comment on above: Order Comment: RADHA CTOR TO SPECIFY Performed By: #### L 400.0001 ####[facility] [address] 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 10/17/2023: received palliative radiation therapy to the right breast consisting of 2600 cGy with a simultaneous boost to the gross disease of 3000 cGy all delivered in 5 fractions. She was treated in the supine position with a 3D conformal treatment plan. Radiation Treatment History: 1) From 10/10/2023 ??? (more content not included)... Normal [facility] 09-16-2023 KIRILL Telephone (HEMDARRION) ANASTACIOSHAGUFTA ALMONTE ([id number]) 1945 F Date Time Provider Department 09/16/23 OSWALD BAXTER During your visit today, we recorded the following information about you: Danika Ford LPN 09/16/2023 3:03 PM Addendum New pt. Referral from Dr. Shannon, Right Breast with open bleeding lesion in 8o'clock position entire breast hard to touch with multiple raised lesions covering it. Left message on voicemail at [facility] needing to know if and when pt [...] to Follow up with Dr. Law @ [facility]. TAYLOR Sow MelanieTAYLOR 09/19/2023 5:01 PM Signed PSS- patient will still need an appointment with medical oncology. Please contact patient to make sure she is aware and offer her a new patient appointment here if she is not already set up with medical oncology at [facility]. TAYLOR Puga Stephanie 09/20/2023 8:41 AM Signed Left message for patient to return call. When she calls, please offer to scheduel with Dr. Baxter/Asmita as she will still need to see Medical Oncology. (Patient will be doing Rad/Onc at [facility]). Madelyn Mobley 09/23/2023 8:36 AM Signed Spoke to patient and scheduled as directed. Shell Duran 09/23/2023 8:38 AM Signed The son Alcides called back to cancel as patient is being seen at [facility] but does not know provider name. Rosalina [...] 14 - Other: See Comments Comments: palpitations DWMACAB-MTD-XRQ REDUCTASE INHIBIT*10/08/2013 14 - Other: See Comments [...] Status:Closed by MADELYN VALDEZ on 09/23/23 Normal [facility] - Chemistry and C hemistry - challengeOrdered By: Russell Shannon on 09-25-2022 Free T4 [Mass/Vol] 1.31 ng/dL 0.76-1.46 [facility] No Panel InformationOrdered By: Russell Shannon on 09-25-2022 Ionized Calcium 5.38 mg/dL 4.36-5.20 [facility] Parathyroid Hormone (Intact) 65.0 pg/mL 18.4-80.1 [facility] Thyroid Stimulating Hormone (TSH) 9.04 uIU/mL 0.358-3.74 [facility] Vitamin D 25-Hydroxy 34.3 ng/mL [facility] Comment on above: Vitamin D 25(OH) Sta tus Range Deficiency <20 ng/mL (50nmol/L) Insufficiency 20 - 30 ng/mL (50 - 75 nmol/L) Sufficiency 30 - 100 ng/mL (75 - 250 nmol/L) Toxicity >100 ng/mL (>250 nmol/L) Serum or plasma calcitriol m easurement (mass/volume)Ordered By: Russell Shannon on 09-25-2022 1,25-dihydroxyvitamin D3 [Mass/Vol] 53.1 pg/mL 24.8-81.5 [facility] Comment on above: Performed at: [facility] [address] [id number] Director: Jacqui Peters MD, Phone: [phone] Absolute lymphocyte countOrd ered By: Russell Shannon on 08-28-2022 Lymphocytes Auto (Unsp spec) [#/Vol] 1.36 10*3/uL 0.83-4.51 [facility] Basophil percentageOrdered B y: Russell Shannon on 08-28-2022 Basophils/100 WBC (Bld) 0.9 % 0-[address] [facility] Bilirubin [Mass/Vol] 0.50 mg/dL 0.20-1.00 [facility] Comment on above: For patients on eltr ombopag therapy, use of Dimension [place] TBIL is not recommended. Chloride [Moles/Vol] 105 mmol/L 98-107 [facility] Eosinophils/100 WBC (Bld) 3.8 % 0-5 [facility] Glucose [Mass/Vol] 99 mg/dL 74-106 [facility] LDH [Catalytic activity/Vol] 257 U/L 84-246 [facility] Neutrophils (Bld) [#/Vol] 4.3 10*3/uL 2.0-7.7 [facility] Neutrophils/100 WBC (Bld) 66.5 % 47-70 [facility] Potassium [Moles/Vol] 3.7 mmol/L 3.5-5.1 [facility] Protein [Mass/Vol] 7.6 g/dL 6.4-8.2 [facility] Sodium [Moles/Vol] 141 mmol/L 136-145 [facility] WBC (Bld) [#/Vol] 6.5 10*3/uL 4.4-11.0 [facility] Blood erythrocytes count (nu mber/volume)Ordered By: Russell Shannon on 08-28-2022 RBC (Bld) [#/Vol] 4.75 10*6/uL 4.2-5.4 [facility] Blood hemoglobin measurement (mass/volume)Ordered By: Russell Shannon on 08-28-2022 Hemoglobin (Bld) [Mass/Vol] 13.7 g/dL 12.0-15.0 [facility] Blood lymphocytes/100 leukoc ytesOrdered By: Russell Shannon on 08-28-2022 Lymphocytes/100 WBC (Bld) 20.9 % 19-41 [facility] Blood monocytes/100 leukocyt esOrdered By: Russell Shannon on 08-28-2022 Monocytes/100 WBC (Bld) 7.7 % 0-[address] [facility] Blood platelet mean volumeOr dered By: Russell Shannon on 08-28-2022 Platelet mean volume (Bld) [Entitic vol] 10.2 fL 6.2-12.0 [facility] Determination of erythrocyte mean corpuscular volume (MCV)Ordered By: Russell Shannon on 08-28-2022 MCV (RBC) [Entitic vol] 90.5 fL 81-[address] [facility] Hematocrit Auto (Bld) [Volum e fraction]Ordered By: Russell Shannon on 08-28-2022 Hematocrit (Bld) [Volume fraction] 43.0 % 37-47 [facility] Iron measurement (mass/mass) Ordered By: Russell Shannon on 08-28-2022 Iron (Unsp spec) [Mass/Mass] 48 ug/dL 50-170 [facility] - Chemistry and C hemistry - challengeOrdered By: Russell Shannon on 08-28-2022 ALP [Catalytic activity/Vol] 85 U/L 45-117 [facility] ALT [Catalytic activity/Vol] 34 U/L 13-56 [facility] CO2 [Moles/Vol] 30.0 mmol/L 21.0-32.0 [facility] Cobalamin (Vitamin B12) [Mass/Vol] 723 pg/mL 211-911 [facility] Free T4 [Mass/Vol] 1.38 ng/dL 0.76-1.46 [facility] Globulin (S) [Mass/Vol] 3.6 g/dL 2.2-4.[address] [facility] Urea nitrogen/Creatinine [Mass ratio] 22.4 mg/mg 10-20 [facility] - Hematology and Cell countsOrdered By: Russell Shannon on 08-28-2022 Erythrocyte distribution width (RBC) [Entitic vol] 42.6 fL 35.1-43.9 [facility] Erythrocyte distribution width (RBC) [Ratio] 12.9 % 11.6-14.6 [facility] Immature granulocytes/100 WBC (Bld) 0.200 % 0.0-0.9 [facility] Comment on above: IG% - Immature Granu locytes (promyelocytes, myelocytes and metamyelocytes) > 1% indicates that a LEFT SHIFT is Present. MCH (RBC) [Entitic mass] 28.8 pg 27.0-32.0 [facility] Nucleated RBC/100 WBC (Bld) [Ratio] 0 % 0-5 [facility] MCHC Auto (RBC) [Mass/Vol]Or dered By: Russell Shannon on 08-28-2022 MCHC (RBC) [Mass/Vol] 31.9 g/dL 32-36 [facility] No Panel InformationOrdered By: Russell Shannon on 08-28-2022 Estimated GFR (MDRD) Amer 64 mL/min >60 [facility] Comment on above: GFR Calc Estimated GFR (MDRD) Non-Af Amer 53 mL/min >60 [facility] Comment on above: Non- GFR Calc Thyroid Stimulating Hormone (TSH) 10.20 uIU/mL 0.358-3.74 [facility] Platelets bldOrdered By: Ellie Shannon on 08-28-2022 Platelets (Bld) [#/Vol] 275 10*3/uL 150-450 [facility] Serum or plasma albumin shon urement (mass/volume)Ordered By: Russell Shannon on 08-28-2022 Albumin [Mass/Vol] 4.0 g/dL 3.2-5.0 [facility] Serum or plasma albumin/glob ulin mass ratioOrdered By: Russell Shannon on 08-28-2022 Albumin/Globulin [Mass ratio] 1.1 {ratio} 0.9-2.4 [facility] Serum or plasma calcium shon urement (mass/volume)Ordered By: Russell Shannon on 08-28-2022 Calcium [Mass/Vol] 10.4 mg/dL 8.5-10.1 [facility] Serum or plasma creatinine m easurement (mass/volume)Ordered By: Russell Shannon on 08-28-2022 Creatinine [Mass/Vol] 1.07 mg/dL 0.55-1.02 [facility] Comment on above: The validity of the calculated GFR & GFRAA in patients over 70 years has not been determined. Clinical correlation is essential. Serum or plasma ferritin [place] surement (mass/volume)Ordered By: Russell Shannon on 08-28-2022 Ferritin [Mass/Vol] 81 ng/mL [facility] Serum or plasma transthyreti n measurement (mass/volume)Ordered By: Russell Shannon on 08-28-2022 Prealbumin [Mass/Vol] 25.5 mg/dL 20.0-40.0 [facility] Serum or plasma urea nitroge n measurement (mass/volume)Ordered By: Russell Shannon on 08-28-2022 Urea nitrogen [Mass/Vol] 24 mg/dL 08-28 [facility] Thin prep Papanicolaou smear with manual screeningOrdered By: Russell Shannon on 08-28-2022 Thin prep Papanicolaou smear with manual screening 36 U/L 1537 [facility] Thin prep Papanicolaou smear with manual screening 6 5-15 [facility] Vital Signs Date Time Vital Sign Value Performing Clinician Faci lity 10-22-2024 12:00-0400 Body temperature 98 [degF] Dr. Russell Shannon DO Work Phone: [facility] 10-22-2024 12:00-0400 Diastolic blood pressure 66 mm[Hg] Dr. Russell Shannon DO Work Phone: [facility] 10-22-2024 12:00-0400 Heart rate 66 /min Dr. Russell Shannon DO Work Phone: [facility] 10-22-2024 12:00-0400 Respiratory rate 16 /min Dr. Russell Shannon DO Work Phone: [facility] 10-22-2024 12:00-0400 SaO2% (BldA) [Mass fraction] 94 % Dr. Russell Shannon DO Work Phone: [facility] 10-22-2024 12:00-0400 Systolic blood pressure 160 mm[Hg] Dr. Russell Shannon DO Work Phone: [facility] 10-21-2024 20:29-0400 Inhaled oxygen flow rate 2 L/min Dr. Russell Shannon DO Work Phone: [facility] 10-19-2024 13:14-0400 Body height 165.[address] Russell Shannon DO Work Phone: [facility] 10-19-2024 13:14-0400 Body weight 39.[address] Russell Shannon DO Work Phone: [facility] 10-18-2024 21:01-0400 Body mass index (BMI) [Ratio] 14.3 kg/m2 Dr. Russell Shannon DO Work Phone: [facility] 10-18-2024 20:00-0400 Body temperature 97.9 [degF] Dr. Russell Shannon DO Work Phone: [facility] 10-18-2024 20:00-0400 Diastolic blood pressure 58 mm[Hg] Dr. Russell Shannon DO Work Phone: [facility] 10-18-2024 20:00-0400 Heart rate 51 /min Dr. Russell Shannon DO Work Phone: [facility] 10-18-2024 20:00-0400 Respiratory rate 18 /min Dr. Russell Shannon DO Work Phone: [facility] 10-18-2024 20:00-0400 SaO2% (BldA) [Mass fraction] 92 % Dr. Russell Shannon DO Work Phone: [facility] 10-18-2024 20:00-0400 Systolic blood pressure 147 mm[Hg] Dr. Russell Shannon DO Work Phone: [facility] 10-18-2024 17:16-0400 Body height 165.[address] Russell Shannon DO Work Phone: [facility] 10-18-2024 17:16-0400 Body mass index (BMI) [Ratio] 13.9 kg/m2 Dr. Russell Shannon DO Work Phone: [facility] 10-18-2024 17:16-0400 Body weight 38.[address] Russell Shannon DO Work Phone: [facility] Encounters Encounter Date Encounter Type Care Provider Facility Start: 10-22-2024 Non-patient / Non-visit Dr. Kavitha Tenorio MD [facility] Work Phone: Start: 10-21-2024 Non-patient / Non-visit Dr. Kavitha Tenorio MD [facility] Work Phone: Start: 10-20-2024 Non-patient / Non-visit Ivon Unger [employer] [facility]PER[facility] Start: 10-20-2024 Non-patient / Non-visit Dr. Kavitha Tenorio MD [facility] Work Phone: Start: 10-19-2024 Non-patient / Non-visit Dr. Kavitha Tenorio MD [facility] Work Phone: Start: 10-18-2024 ambulatory Onel Tenorio [facility] ility:[facility] Start: 10-18-2024 End: 10-22-2024 Evaluation and management of inpatient Dr. Oksana Fortune MD -Medical Surgical 3 Work Phone: Start: 08-07-2024 End: 08-07-[address] Russell Shannon DO Work Phone: -Laboratory [facility] Start: 08-07-2024 End: 08-07-[address] Russell Shannon DO -Laboratory [facility] Start: 08-07-2024 End: 08-07-2024 ambulatory Russell Shannon Facility:[facility] Start: 02-13-2024 End: 02-13-2024 ambulatory [facility] Start: 12-31-2023 End: 12-31-2023 Emergency department patient visit Vincent Brumfield Facility:[facility] Start: 11-14-2023 End: 11-14-2023 [facility] Start: 09-16-2023 Telephone encounter Oswald guardado DO Work Phone: Hematology/Oncology Start: 09-25-2022 End: 09-25-2022 ambulatory [facility] Work Phone: Start: 09-25-2022 End: 09-25-2022 Patient encounter procedure [facility] Start: 08-28-2022 End: 08-28-2022 ambulatory [facility] Work Phone: Start: 08-28-2022 End: 08-28-2022 Patient encounter procedure [facility] Procedures Date Procedure Procedure Detail Performing Clinician Start: 10-21-[address] Russell Shannon DO Work Phone: Start: 10-18-2024 Urnls dip stick/tabl et reagent auto microscopy Dr. Russell Shannon DO Work Phone: Start: 10-18-2024 Plain chest X-ray Dr. Wan Shannon DO Work Phone: Start: 10-18-[address] Russell Shannon DO Work Phone: Start: 10-18-2024 CT of head without contrast Dr. Russell Shannon DO Work Phone: H/O: surgery History of basal cell carcinoma excision Comment on above: Excision 2 cm ulcera vince basal cell carcinoma left frontal scalp with FTSG reconstruction from bilateral necks (14 cm2) - 03/13/21 Plan of Treatment Date Care Activity Detail Author Start: 10-22-2024 Patient discharge [facility] Start: 10-22-2024 Referral to service [facility] Start: 10-20-2024 Palliative care [facility] Start: 10-20-2024 Oxygen therapy [facility] Start: 10-18-2024 Assessment of risk of venous thromboembolism [facility] Start: 10-18-2024 Inhalation therapy procedure [facility] Start: 10-18-2024 Insertion of catheter into peripheral vein [facility] Start: 10-18-2024 Measuring intake and output [facility] Start: 10-18-2024 Providing care according to standard [facility] Start: 10-18-2024 Provision of activity privileges [facility] Start: 10-18-2024 Referral to occupational therapist [facility] Start: 10-18-2024 Referral to service [facility] Start: 10-18-2024 Speech therapy assessment [facility] Start: 10-18-2024 [facility] Start: 10-18-2024 Verification routine [facility] Start: 10-18-2024 Admission procedure [facility] Start: 10-18-2024 End: 10-18-2024 Following clinical pathway protocol [facility] Start: 10-18-2024 End: 10-18-2024 [facility] Start: 10-18-2024 Hospital admission, emergency, from emergency room, medical nature [facility] Start: 10-18-2024 [facility] Start: 10-18-2024 Patient referral to dietitian [facility] Start: 10-13-2023 Influenza vaccination Influenza Vaccine (#1) [facility] Start: 02-11-2023 Advance Directive Discussion Advance Directive Discussion [facility] Start: 10-12-2022 Covid-19 Vaccine ( season) Covid-19 Vaccine ( season) [facility] Start: 09-25-2022 Procedure [facility] Start: 2008 Pneumococcal Vaccine: 65+ (1 of 1 - PCV) Pneumococcal Vaccine: 65+ (1 of 1 - PCV) [facility] Start: 2008 Screening for osteoporosis Bone Density Screening [facility] Start: 2003 RSV Vaccine (1 - 1-dose 60+ series) RSV Vaccine (1 - 1-dose 60+ series) [facility] Start: 1993 Shingrix Vaccine (1 of 2) Shingrix Vaccine (1 of 2) [facility] Start: 1988 Diabetes Screening Diabetes Screening [facility] Start: 1962 Urine microalbumin profile DTaP,Tdap,Td Vaccine (1 - Tdap) [facility] Start: 1961 Anxiety Screening Anxiety Screening [facility] Start: 1961 Depression Screening Depression Screening [facility] Troponin T.cardiac [Mass/volume] in Serum or Plasma by High sensitivity method [facility] Troponin T.cardiac [Mass/volume] in Serum or Plasma by High sensitivity method [facility] Immunizations Immunization Date Immunization Notes Care Provider Fa cility 05-20-2020 Covid (Pfizer) [facility] 04-29-2020 Covid (Pfizer) [facility] 03-11-2019 tetanus toxoid, redu flaquita diphtheria toxoid, and acellular pertussis vaccine, adsorbed [facility] 02-11-2010 pneumococcal vaccine , unspecified formulation [facility] Payers Date Payer Category Payer Self-pay [id number] 2013 Medicare HUMANA MEDICARE HU[employer]NA MEDICARE PFFS [id number] 2013-Present [id number] [place], [place] [address] Indemnity [id number] 2012 Private Health Insurance [id number] 2008 Medicare [id number] Unknown [id number]. 2.462 Unknown [id number]. 2.462 Unknown [id number] [id number]. 2.462 Unknown [id number]. 2.462 Unknown [id number] [id number]. 2.462 Unknown [id number] [id number]. 2.462 Unknown [id number] [id number]. 2.462 Unknown [id number] 2.840.1.164616.3.579. 2.462 Unknown [id number] 2.840.1.020989.3.579. 2.462 Unknown [id number] 2.0.1.563945.3.579. 2.462 Unknown [id number] Social History Date Type Detail Facility Start: 04-20-2021 Tobacco smoking stat [facility] Unknown if ever smoked [facility] Start: 06-06-2013 None [facility] Start: 06-06-2013 Alone [facility] Start: 1945 Sex Assigned At Female [facility] Start: 10-08-2013 End: 10-18-2024 Tobacco smoking status NHIS Ex-smoker [facility] History of tobacco use Current smoker [facility] History of tobacco use Cigarette Smoker [facility] Start: 12-08-2013 Alcohol intake Current drinke r of alcohol (finding) [facility] Start: 1945 Sex Assigned At Not on file [facility] Gender identity Not on file [facility] Goals Date Patient Goal Desired Activity /State Functional Status Date Assessment Result Facility 10-22-2024 Functional status Ambulates [facility] Work Phone: Mental Status Date Assessment Result Facility 10-22-2024 Cognitive function Unable to Comprehend [facility] Work Phone: 10-21-2024 Cognitive function Voice/Name [facility] Work Phone: 10-18-2024 Cognitive function Awake;Alert;A ppropriate;Foll ows Commands [facility] Work Phone: Clinical Notes 09-16-2023 to 10-22-2024 Note Date & Type Note Facility 10-22-2024 Consult note Note Date/Time October 22, 2024 10:[address] [place] [address] Medical Records Department [address] [place] [address] Counseling Note - Pharmacy 10/21/24 1550 MR#: [id number] Acct: [id number] Name: SHAGUFTA GUTIERREZ Rep #:[id number] : 1945 79 From: Kendrick oropeza PCP: Dr. Russell Shannon, DO Status:ADM IN Y Location: [address] Med Reconciliation Pharmacy Service has performed discharge medication reconciliation for this patient. The patient's discharge medication list was reviewed for discrepancies and discrepancies were resolved. New medications at discharge: cefdinir 300 mg PO BID x 5 days and azithromycin 500 mg PO daily x2 days Medications at Discharge Home Medications levothyroxine 100 mcg tablet 50 mcg PO DAILY 03/07/21 losartan 25 mg tablet 100 mg PO QHS 03/07/21 levothyroxine 50 mcg capsule 100 mcg PO IGNACIO 03/10/21 propranolol 60 mg capsule,24 hr,extended release 60 mg PO QHS 03/10/21 vitamin B12 500 mcg-folic acid 400 mcg tablet 1 tab PO DAILY 03/10/21 donepezil 10 mg tablet 10 mg PO DAILY 09/17/23 memantine 5 mg tablet 5 mg PO BID 09/17/23 levothyroxine 75 mcg tablet 75 mcg PO DAILY 10/18/24 losartan 100 mg tablet 100 mg PO DAILY 10/18/24 sertraline 50 mg tablet 50 mg PO DAILY 10/18/24 azithromycin 500 mg tablet 500 mg PO DAILY 2 days #2 tabs 10/20/24 cefdinir 300 mg capsule 300 mg PO BID #10 caps 10/20/24 10/21/24 1551 <Electronically signed by Kendrick Whyte> Date _ Kendrick Osullivan Cosignluzma Signature (if applicable): Date CC: ~ Signed ADDENDUM by Kendrick Osullivan on 10/22/24 at 1025 Discharge delayed 1 day, medication lengths of use at discharge accounts for added hospital day. 10/22/24 1025 <Electronically signed by Kendrick Whyte> Date _ Kendrick Castellon Signature (if applicable): Date cc: ~* Signed [facility] Work Phone: 1(395) 478-598209-11-2025 Consult note Author Kendrick Osullivan [facility] Note Date/Time October 22, 2024 10:23am [facility] Medical Records Department [address] [place] [address] Counseling Note - Pharmacy 10/22/24 1022 MR#: [id number] Acct: [id number] Name: SHAGUFTA GUTIERREZ Rep #:[id number] : 1945 79 From: Kendrick oropeza PCP: Dr. Russell Shannon, DO Status:ADM IN Location: [place] [address] Pharmacy [place] Med Reconciliation Pharmacy Service has performed discharge medication reconciliation for this patient. The patient's discharge medication list was reviewed for discrepancies and discrepancies were resolved. - New medication at discharge: Cefdinir 1 cap PO BID X3 days, Azithromycin 500 mg tablet daily x1 day. Medications at Discharge Home Medications propranolol 60 mg capsule,24 hr,extended release 60 mg PO QHS 03/10/21 vitamin B12 500 mcg-folic acid 400 mcg tablet 1 tab PO DAILY 03/10/21 donepezil 10 mg tablet 10 mg PO DAILY 09/17/23 memantine 5 mg tablet 5 mg PO BID 09/17/23 levothyroxine 75 mcg tablet 75 mcg PO DAILY 10/18/24 losartan 100 mg tablet 100 mg PO DAILY 10/18/24 sertraline 50 mg tablet 50 mg PO DAILY 10/18/24 azithromycin 500 mg tablet 500 mg PO DAILY #1 TAB 10/22/24 cefdinir 300 mg capsule 300 mg PO BID #6 caps 10/22/24 10/22/24 1023 <Electronically signed by Kendrick Whyte> Date _ Kendrick Pisano Signature (if applicable): Date CC: ~ Signed [facility] Work Phone: 1(202) 293-103809-11-2025 Discharge summary Author Onel Tenorio [facility] Note Date/Time October 22, 2024 10:08am [facility] Medical Records Department [address] [place] [address] Discharge Summary 10/22/24 0957 MR#: [id number] Acct: [id number] Name: SHAGUFTA GUTIERREZ Rep #:[id number] : 1945 79 From: Onel dumont MD PCP: Dr. Russell Shannon DO Status:ADM IN Location: [place] [address] Providers Date of Admission: 10/18/24 Primary Care Physician: Dr. Russell Shannon, Consultations 10/20/24 12:50 Consult: Inpatient Palliative Care Routine Consulting Provider: Ivon Unger Reason for Consult: Decline in pt health EMERGENT Consult: No MD Notified: Yes Date Notified: 10/20/24 Time Notified: 12:50 Method of Notification: Text Reason For Visit: AMS 2/2 UTI Diagnosis Discharge Diagnosis (1) Shortness of breath: Status: Acute Code(s): R06.02 - Shortness of breath (2) LBBB (left bundle branch block): Status: Acute Code(s): I44.7 - Left bundle-branch block, unspecified (3) Lung mass: Status: Acute Code(s): R91.8 - Other nonspecific abnormal finding of lung field (4) Palliative care encounter: Status: Acute Code(s): Z51.5 - Encounter for palliative care Plan 1. Acute metabolic encephalopathy secondary to UTI in the setting of chronic dementia with possible bacterial pneumonia ? Urine analysis looks very positive for UTI however no urine culture was sent and cannot be sent because the original sample was disposed of by lab ? Continue with Rocephin and azithromycin, there was concern for possibility of pneumonia given the productive cough ? Continue with her home medications for her dementia 2. Basal cell carcinoma as well as breast cancer ? Underwent palliative radiation last year for her breast cancer ? At the time she had a fungating mass on the right breast that was reduced in size ? She does have suspicious findings on her chest x-ray consistent with her breast cancer given her dementia family does not want to be overly aggressive ? They had elected in February to observe her breast cancer and forego any new treatments 3. Hypothyroidism ? Stable ? Continue with Synthroid 4. Essential hypertension ?Continue with losartan ? Renal functions back to baseline 5. Anxiety/depression ? Stable ? Continue with her home medications DVT: SCDs Disposition: Awaiting SNF placement Medications at Discharge Home Medications propranolol 60 mg capsule,24 hr,extended release 60 mg PO QHS 03/10/21 vitamin B12 500 mcg-folic acid 400 mcg tablet 1 tab PO DAILY 03/10/21 donepezil 10 mg tablet 10 mg PO DAILY 09/17/23 memantine 5 mg tablet 5 mg PO BID 09/17/23 levothyroxine 75 mcg tablet 75 mcg PO DAILY 10/18/24 losartan 100 mg tablet 100 mg PO DAILY 10/18/24 sertraline 50 mg tablet 50 mg PO DAILY 10/18/24 azithromycin 500 mg tablet 500 mg PO DAILY #1 TAB 10/22/24 cefdinir 300 mg capsule 300 mg PO BID #6 caps 10/22/24 Hospital Course Operations None Procedures None Summary of Care Provided Minutes Spent on Discharge: 33 Hospital Course: Per HPI: SHAGUFTA GUTIERREZ, is a 79-year-old female history of hypertension, breast cancer, memory impairment, hypothyroidism, basal cell carcinoma of the scalp [facility] 10[facility]18[facility]2024 due to some confusion on top ofher usual memory problems and she complained of some shortness of breath today. In the ED patient afebrile, heart rate 56 and blood pressure 139/69, respiratoryrate 14 and pulse ox 97% on room air. CBC with white count 8.6, hemoglobin 12.3, CMP with a BUN of 36 and a creatinine of 1.32, BUN of 36 and creatinine 1.32, glucose 104. Troponin 29, brain CT with no intracranial hemorrhage. Chest x-ray demonstrated extensive pulmonary opacities worrisome for malignancy/metastatic disease. UA obtained which was suspicious for infection. Patient given antibiotics and hospitalist contacted for admission. Patient evaluated at bedside with son present, son provided most of the history as patient is confused and has a difficult time answering questions, she has had difficulties with her memory for 3 years however has been worse over the past 3 to 4 days and she has been increasingly very tired and fatigued recently, shortness of breath she only complained of today without cough or fever. Has some constant sinus problems but nothing new, denies chest pain or diarrhea or abdominal pain. She is unsure if she has had any urinary changes Hospital Course: 1. Acute metabolic encephalopathy in the setting of chronic dementia secondary to UTI with possible bacterial pneumonia?79-year-old female presented from home with increased confusion. Her son states that she lives home alone even with her moderate dementia because she has done well however he noticed over the couple days prior to admission that she seemed more confused which is why he brought her in. We did a urine analysis which demonstrated concerns for UTI however no urine culture was ordered in the ER and the next day when I went to order the urine culture the lab had thrown away the sample but by that point shehad already received 2 doses of antibiotics so I felt that a repeat urine culture would be unhelpful. She was placed on Rocephin and azithromycin, and she has had significant improvement and the son states that she is almost back to her baseline however they were concerned with her going back home and were attempting to find placement however she did not need any skilled assistance fortherapy so they have decided on self-pay at a local skilled nursing for a week or 2to see if they can get her back home or what the next that we will be. She willneed 1 more day of azithromycin 500 mg and then 3 more days of cefdinir 300 mg twice daily to complete treatment course. I discussed this plan for discharge with the son and he expressed understanding of the risks and benefits of going to the skilled nursing and would like for her to go home. 2. Basal cell carcinoma as well as history of breast cancer, hypothyroidism, essential hypertension, anxiety, depression are all chronic medical conditions which complicate her care. Her home medications were continued where appropriate. She is a DNR CCA and we have had palliative conversations as well as they do not want any further aggressive treatment of her breast cancer which was a fungating mass on her right breast. She did undergo radiation. Basal cell carcinoma just requires dressing placements on her scalp. Medical Records Data Medical Nutrition Assessment Dietitian: Malnutrition Criteria Met Start: 10/19/24 13:25 Freq: Status: Active Protocol: Document 10/19/24 13:25 SLA (Rec: 10/19/24 13:25 SLA [id number]) Nutrition Malnutrition Evidence of Yes Malnutrition Exists Malnutrition (severe Chronic ): Evidenced By Suboptimal Energy Intake (Severe),Weight Loss (Severe), Physical Changes (Severe) Clinical Problem Chronic Disease or Condition Related Malnutrition Etiology related to cancer and inadequate energy intake Signs/Symptoms as evidenced by po intake meeting <75% of est nutritional needs, BMI 14.3 and fat loss/muscle wasting throughout body. Status Active Problem Recommendation Dietitian Will continue liberal regular diet as ordered Recommendations/ Will order fortified foods w/ meals as able/ magic cup Changes w/ lunch and dinner for increased nutrition if consumed Will order 4 oz ensure plus high protein 4x/day w/ medpass for increased nutrition if consumed Rec consider appetite stimulant to help encourage increased po intake of meals and ONS If po intake fails to improve, may need to consider supplemental nutrition support, if in accordance w/pt/ family wishes. Homelessness:: Sheltered Weight / BMI Weight Weight: 86 lb 2 oz Body Mass Index (BMI) 14.3 ABG / Lab / Microbiology Data 10/21/24 05:35 10/21/24 05:35 D/C Instructions Call your doctor if you observe: Fever of 101 or Higher, Shortness of breath, Dizziness, Fainting spells, Swelling in the ankles, Chest pain and Increased palpitations (irregular heartbeat) DC O2, CPAP, BIPAP Needs Home O2 Discharge instructions: No Meaningful Use Info Meaningful Use Meaningful Use Diagnoses (Choose all that apply): None applicable Discharge Plan Admission Admit Date/Time: 10/18/24 20:30 Attending Provider: Onel Tenorio Primary Care Provider: Russell Shannon Consulting Providers: Oksana Fortune; Ivon Unger Instructions Additional Instructions / Restrictions: Follow-up with your primary care doctor to monitor your kidney function Discharge Orders/Prescriptions Prescriptions: New azithromycin 500 mg tablet 500 mg PO DAILY Qty: 1 0RF cefdinir 300 mg capsule 300 mg PO BID Qty: 6 0RF Continued memantine 5 mg tablet 5 mg PO BID donepezil 10 mg tablet 10 mg PO DAILY vitamin B20-lfhgt acid 500-400 mcg Tablet 1 tab PO DAILY propranolol 60 MG capsule,extended release 24 hr 60 mg PO QHS Patient Comments: heart/blood pressure levothyroxine 75 mcg tablet 75 mcg PO DAILY losartan 100 mg tablet 100 mg PO DAILY sertraline 50 mg tablet 50 mg PO DAILY Discontinued levothyroxine 100 mcg tablet 50 mcg PO DAILY Patient Comments: thyroid medication Rx Instructions: Take 2 Doses on Saturday losartan 25 mg tablet 100 mg PO QHS Patient Comments: blood pressure levothyroxine 50 mcg Capsule 100 mcg PO IGNACIO Referrals / Follow Up: Russell Shannon DO [Primary Care Provider] - Within 1 Week Disposition Disposition (needs filled in before D/C Order can be placed): Long-Term Facility Charges/Coding Visit Charges Inpatient E&M: 20243 Disch Hosp >30min 10/22/24 1008 <Electronically signed by Onel Tenorio MD> Cosigner Signature (if applicable): CC: Dr. Russell Shannon DO; Dr. Onel Tenorio MD~ Signed [facility] Work Phone: 1(483) 563-697009-11-2025 Progress note Author Onel Tenorio [facility] Note Date/Time October 22, 2024 9:35am [facility] Medical Records Department [address] [place] [address] Progress Note - Hospitalist 10/22/24 0934 MR#: [id number] Acct: [id number] Name: SHAGUFTA GUTIERREZ Rep #:[id number] : 1945 79 From: Onel dumont MD PCP: Dr. Russell Shannon DO Status:ADM IN Location: [facility]3 DT171-0 Subjective Subjective Son states she appears little bit better today and a little closer to her baseline Objective Data Objective Data Vital Signs: Vital Signs Temp Pulse Resp BP Pulse Ox O2 Del Method O2 Flow Rate 97.9 F 57 L 16 175/57 H 94 Room Air 2 10/22/24 06:47 10/22/24 06:47 10/22/24 06:47 10/22/24 06:47 10/22/24 06:47 10/22/24 08:54 10/21/24 20:29 Oxygen Flow Rate (L/min) 2 Oxygen Delivery Method Room Air Weight: 86 lb 2 oz Body Mass Index (BMI) 14.3 Intake & Output: Intake and Output for Last 24 Hours 10/21/24 10/22/24 10/23/24 03:59 03:59 03:59 Intake Total 545 / 545 955 / 955 50 / 50 Balance 545 / 545 955 / 955 50 / 50 Medical Nutrition Assessment Dietitian: Malnutrition Criteria Met Start: 10/19/24 13:25 Freq: Status: Active Protocol: Document 10/19/24 13:25 SLA (Rec: 10/19/24 13:25 SLA [id number]) Nutrition Malnutrition Evidence of Yes Malnutrition Exists Malnutrition (severe Chronic ): Evidenced By Suboptimal Energy Intake (Severe),Weight Loss (Severe), Physical Changes (Severe) Clinical Problem Chronic Disease or Condition Related Malnutrition Etiology related to cancer and inadequate energy intake Signs/Symptoms as evidenced by po intake meeting <75% of est nutritional needs, BMI 14.3 and fat loss/muscle wasting throughout body. Status Active Problem Recommendation Dietitian Will continue liberal regular diet as ordered Recommendations/ Will order fortified foods w/ meals as able/ magic cup Changes w/ lunch and dinner for increased nutrition if consumed Will order 4 oz ensure plus high protein 4x/day w/ medpass for increased nutrition if consumed Rec consider appetite stimulant to help encourage increased po intake of meals and ONS If po intake fails to improve, may need to consider supplemental nutrition support, if in accordance w/pt/ family wishes. Lab / Micro Data 10/21/24 05:35 10/21/24 05:35 Social Homelessness:: Sheltered Physical Exam Narrative General: Alert, Oriented x1-2, Cooperative, No apparent distress HEENT: Atraumatic, PERRLA, EOMI, Normocephalic Oral: Moist Mucosa Neck: Supple, No JVD Lungs: Diminished, Normal air movement, No rhonchi, No wheeze, No rales Cardiovascular: Regular rate, Regular Rhythm, Normal S1, Normal S2, No murmurs Abdomen: Soft, Non Tender, Non-Distended, No Hepato-splenomegaly Extremities: No edema, Capillary Refill Less than 3 Seconds Skin: Multiple skin lesions, 1 on her scalp consistent with a basal cell carcinoma Musculoskeletal: No Tenderness to Palpation of Joints or Extremities Neurological: No focal neurological deficits, moves all extremities Psych/Mental Status: Normal Affect, Appropriate Assessment & Plan Assessment/Plan (1) Shortness of breath: (2) LBBB (left bundle branch block): (3) Lung mass: (4) Palliative care encounter: PLAN: Plan 1. Acute metabolic encephalopathy secondary to UTI in the setting of chronic dementia with possible bacterial pneumonia ? Urine analysis looks very positive for UTI however no urine culture was sent and cannot be sent because the original sample was disposed of by lab ? Continue with Rocephin and azithromycin, there was concern for possibility of pneumonia given the productive cough ? Continue with her home medications for her dementia 2. Basal cell carcinoma as well as breast cancer ? Underwent palliative radiation last year for her breast cancer ? At the time she had a fungating mass on the right breast that was reduced in size ? She does have suspicious findings on her chest x-ray consistent with her breast cancer given her dementia family does not want to be overly aggressive ? They had elected in February to observe her breast cancer and forego any new treatments 3. Hypothyroidism ? Stable ? Continue with Synthroid 4. Essential hypertension ?Continue with losartan ? Renal functions back to baseline 5. Anxiety/depression ? Stable ? Continue with her home medications DVT: SCDs Disposition: Awaiting SNF placement Charges/Coding Visit Charges Inpatient E&M: 70833 Subs Hosp L1 10/22/24 0935 <Electronically signed by Onel Tenorio MD> Cosigner Signature (if applicable): CC: ~ Signed [facility] Work Phone: 1(822) 913-127909-11-2025 Consult note [facility] Medical Records Department [address] [place] [address] Counseling Note - Pharmacy 10/21/24 1550 MR#: [id number] Acct: [id number] Name: SHAGUFTA GUTIERREZ J Rep #:[id number] : 1945 79 From: Kendrick Beckett ly PCP: Dr. Russell Shannon, DO Status:ADM IN Y Location: [facility] WS180-0 Pharmacy [place] Med Reconciliation Pharmacy Service has performed discharge medication reconciliation for this patient. The patient's discharge medication list was reviewed for discrepancies and discrepancies were resolved. New medications at discharge: cefdinir 300 mg PO BID x 5 days and azithromycin 500 mg PO daily x2 days Medications at Discharge Home Medications levothyroxine 100 mcg tablet 50 mcg PO DAILY 03/07/21 losartan 25 mg tablet 100 mg PO QHS 03/07/21 levothyroxine 50 mcg capsule 100 mcg PO IGNACIO 03/10/21 propranolol 60 mg capsule,24 hr,extended release 60 mg PO QHS 03/10/21 vitamin B12 500 mcg-folic acid 400 mcg tablet 1 tab PO DAILY 03/10/21 donepezil 10 mg tablet 10 mg PO DAILY 09/17/23 memantine 5 mg tablet 5 mg PO BID 09/17/23 levothyroxine 75 mcg tablet 75 mcg PO DAILY 10/18/24 losartan 100 mg tablet 100 mg PO DAILY 10/18/24 sertraline 50 mg tablet 50 mg PO DAILY 10/18/24 azithromycin 500 mg tablet 500 mg PO DAILY 2 days #2 tabs 10/20/24 cefdinir 300 mg capsule 300 mg PO BID #10 caps 10/20/24 10/21/24 1551 ebly> Date _ Kendrick Osullivan Cosigner Signature (if applicable): Date CC: ~ Signed ADDENDUM by Kendrick Osullivan on 10/22/24 at 1025 Discharge delayed 1 day, medication lengths of use at discharge accounts for added hospital day. 10/22/24 1025 ebly> Date _ Kendrick Castellon Signature (if applicable): Date cc: ~* Signed [facility]09-11-2025 Consult note [facility] Medical Records Department [address] [place] [address] Counseling Note - Pharmacy 10/22/24 1022 MR#: [id number] Acct: [id number] Name: SHAGUFTA GUTIERREZ Rep #:[id number] : 1945 79 From: Kendrick oropeza PCP: Dr. Russell Shannon, DO Status:ADM IN Location: [place] [address] Pharmacy [place] Med Reconciliation Pharmacy Service has performed discharge medication reconciliation for this patient. The patient's discharge medication list was reviewed for discrepancies and discrepancies were resolved. - New medication at discharge: Cefdinir 1 cap PO BID X3 days, Azithromycin 500 mg tablet daily x1 day. Medications at Discharge Home Medications propranolol 60 mg capsule,24 hr,extended release 60 mg PO QHS 03/10/21 vitamin B12 500 mcg-folic acid 400 mcg tablet 1 tab PO DAILY 03/10/21 donepezil 10 mg tablet 10 mg PO DAILY 09/17/23 memantine 5 mg tablet 5 mg PO BID 09/17/23 levothyroxine 75 mcg tablet 75 mcg PO DAILY 10/18/24 losartan 100 mg tablet 100 mg PO DAILY 10/18/24 sertraline 50 mg tablet 50 mg PO DAILY 10/18/24 azithromycin 500 mg tablet 500 mg PO DAILY #1 TAB 10/22/24 cefdinir 300 mg capsule 300 mg PO BID #6 caps 10/22/24 10/22/24 1023 ebly> Date _ Kendrick Pisano Signature (if applicable): Date CC: ~ Signed [facility]09-11-2025 Discharge summary [facility] Medical Records Department [address] [place] [address] Discharge Summary 10/22/24 0957 MR#: [id number] Acct: [id number] Name: SHAGUFTA GUTIERREZ Rep #:[id number] : 1945 79 From: Onel dumont MD PCP: Dr. Russell Shannon DO Status:ADM IN Location: [facility] [id number] Providers Date of Admission: 10/18/24 Primary Care Physician: Dr. Russell Shannon, Consultations 10/20/24 12:50 Consult: Inpatient Palliative Care Routine Consulting Provider: Ivon Unger Reason for Consult: Decline in pt health EMERGENT Consult: No MD Notified: Yes Date Notified: 10/20/24 Time Notified: 12:50 Method of Notification: Text Reason For Visit: AMS 2/2 UTI Diagnosis Discharge Diagnosis (1) Shortness of breath: Status: Acute Code(s): R06.02 - Shortness of breath (2) LBBB (left bundle branch block): Status: Acute Code(s): I44.7 - Left bundle-branch block, unspecified (3) Lung mass: Status: Acute Code(s): R91.8 - Other nonspecific abnormal finding of lung field (4) Palliative care encounter: Status: Acute Code(s): Z51.5 - Encounter for palliative care Plan 1. Acute metabolic encephalopathy secondary to UTI in the setting of chronic dementia with possiblebacterial pneumonia ? Urine analysis looks very positive for UTI however no urine culture was sent and cannot be sent because the original sample was disposed of by lab ? Continue with Rocephin and azithromycin, there was concern for possibility of pneumonia given theproductive cough ? Continue with her home medications for her dementia 2. Basal cell carcinoma as well as breast cancer ? Underwent palliative radiation last year for her breast cancer ? At the time she had a fungating mass on the right breast that was reduced in size ? She does have suspicious findings on her chest x-ray consistent with her breast cancer given her dementia family does not want to be overly aggressive ? They had elected in February to observe her breast cancer and forego any new treatments 3. Hypothyroidism ? Stable ? Continue with Synthroid 4. Essential hypertension ?Continue with losartan ? Renal functions back to baseline 5. Anxiety/depression ? Stable ? Continue with her home medications DVT: SCDs Disposition: Awaiting SNF placement Medications at Discharge Home Medications propranolol 60 mg capsule,24 hr,extended release 60 mg PO QHS 03/10/21 vitamin B12 500 mcg-folic acid 400 mcg tablet 1 tab PO DAILY 03/10/21 donepezil 10 mg tablet 10 mg PO DAILY 09/17/23 memantine 5 mg tablet 5 mg PO BID 09/17/23 levothyroxine 75 mcg tablet 75 mcg PO DAILY 10/18/24 losartan 100 mg tablet 100 mg PO DAILY 10/18/24 sertraline 50 mg tablet 50 mg PO DAILY 10/18/24 azithromycin 500 mg tablet 500 mg PO DAILY #1 TAB 10/22/24 cefdinir 300 mg capsule 300 mg PO BID #6 caps 10/22/24 Hospital Course Operations None Procedures None Summary of Care Provided Minutes Spent on Discharge: 33 Hospital Course: Per HPI: SHAGUFTA GUTIERREZ, is a 79-year-old female history of hypertension, breast cancer, memory impairment, hypothyroidism, basal cell carcinoma of the scalp [facility] due to some confusion on top ofher usual memory problems and she complained of some shortness of breath today. In the ED patient afebrile, heart rate 56 and blood pressure 139/69, respiratoryrate 14 and pulse ox 97% on room air. CBC with white count 8.6, hemoglobin 12.3, CMP with a BUN of 36 and a creatinine of 1.32, BUN of 36 and creatinine 1.32, glucose 104. Troponin 29, brain CT with no intracranial hemorrhage. Chest x-ray demonstrated extensive pulmonary opacities worrisome for malignancy/metastatic disease. UA obtained which was suspicious for infection. Patient given antibiotics and hospitalist contacted for admission. Patient evaluated at bedside with son present, son provided most of the history as patient is confused and has a difficult time answering questions, she has had difficulties with her memory for 3 years however has been worse over the past 3 to 4 days and she has been increasingly very tired and fatigued recently, shortness of breath she only complained oftoday without cough or fever. Has some constant sinus problems but nothing new, denies chest pain or diarrhea or abdominal pain. She is unsure if she has had any urinary changes Hospital Course: 1. Acute metabolic encephalopathy in the setting of chronic dementia secondary to UTI with possiblebacterial pneumonia?79-year-old female presented from home with increased confusion. Her son statesthat she lives home alone even with her moderate dementia because she has done well however he noticed over the couple days prior to admission that she seemed more confused which is why he brought her in. We did a urine analysis which demonstrated concerns for UTI however no urine culture was ordered in the ER and the next day when I went to order the urine culture the lab had thrown away the sample but by that point shehad already received 2 doses of antibiotics so I felt that a repeat urine culture would be unhelpful. She was placed on Rocephin and azithromycin, and she has had significant improvement and the son states that she is almost back to her baseline however they were concerned with her going back home and were attempting to find placement however she did not need any skilled assistance fortherapy so they have decided on self-pay at a local skilled nursing for a week or 2to see if they can get her back home or what the next that we will be. She willneed 1 more day of azithromycin 500 mg and then 3 more days of cefdinir 300 mg twice daily to complete treatment course. I discussed this plan for discharge with the son and he expressed understanding of the risks and benefits of going to the skilled nursing and would like for her to go home. 2. Basal cell carcinoma as well as history of breast cancer, hypothyroidism, essential hypertension, anxiety, depression are all chronic medical conditions which complicate her care. Her home medications were continued where appropriate. She is a DNR CCA and we have had palliative conversations as well as they do not want any further aggressive treatment of her breast cancer which was a fungatingmass on her right breast. She did undergo radiation. Basal cell carcinoma just requires dressing placements on her scalp. Medical Records Data Medical Nutrition Assessment Dietitian: Malnutrition Criteria Met Start: 10/19/24 13:25 Freq: Status: Active Protocol: Document 10/19/24 13:25 JUAN JOSE (Rec: 10/19/24 13:25 SLA [id number]) Nutrition Malnutrition Evidence of Yes Malnutrition Exists Malnutrition (severe Chronic ): Evidenced By Suboptimal Energy Intake (Severe),Weight Loss (Severe), Physical Changes (Severe) Clinical Problem Chronic Disease or Condition Related Malnutrition Etiology related to cancer and inadequate energy intake Signs/Symptoms as evidenced by po intake meeting <75% of est nutritional needs, BMI 14.3 and fat loss/muscle wasting throughout body. Status Active Problem Recommendation Dietitian Will continue liberal regular diet as ordered Recommendations/ Will order fortified foods w/ meals as able/ magic cup Changes w/ lunch and dinner for increased nutrition if consumed Will order 4 oz ensure plus high protein 4x/day w/ medpass for increased nutrition if consumed Rec consider appetite stimulant to help encourage increased po intake of meals and ONS If po intake fails to improve, may need to consider supplemental nutrition support, if in accordance w/pt/ family wishes. Homelessness:: Sheltered Weight / BMI Weight Weight: 86 lb 2 oz Body Mass Index (BMI) 14.3 ABG / Lab / Microbiology Data 10/21/24 05:35 10/21/24 05:35 D/C Instructions Call your doctor if you observe: Fever of 101 or Higher, Shortness of breath, Dizziness, Fainting spells, Swelling in the ankles, Chest pain and Increased palpitations (irregular heartbeat) DC O2, CPAP, BIPAP Needs Home O2 Discharge instructions: No Meaningful Use Info Meaningful Use Meaningful Use Diagnoses (Choose all that apply): None applicable Discharge Plan Admission Admit Date/Time: 10/18/24 20:30 Attending Provider: Onel Tenorio Primary Care Provider: Russell Shannon Consulting Providers: Oksana Fortune; Ivon Unger Instructions Additional Instructions / Restrictions: Follow-up with your primary care doctor to monitor your kidney function Discharge Orders/Prescriptions Prescriptions: New azithromycin 500 mg tablet 500 mg PO DAILY Qty: 1 0RF cefdinir 300 mg capsule 300 mg PO BID Qty: 6 0RF Continued memantine 5 mg tablet 5 mg PO BID donepezil 10 mg tablet 10 mg PO DAILY vitamin W25-bvoii acid 500-400 mcg Tablet 1 tab PO DAILY propranolol 60 MG capsule,extended release 24 hr 60 mg PO QHS Patient Comments: heart/blood pressure levothyroxine 75 mcg tablet 75 mcg PO DAILY losartan 100 mg tablet 100 mg PO DAILY sertraline 50 mg tablet 50 mg PO DAILY Discontinued levothyroxine 100 mcg tablet 50 mcg PO DAILY Patient Comments: thyroid medication Rx Instructions: Take 2 Doses on Saturday losartan 25 mg tablet 100 mg PO QHS Patient Comments: blood pressure levothyroxine 50 mcg Capsule 100 mcg PO IGNACIO Referrals / Follow Up: Russell Shannon DO [Primary Care Provider] - Within 1 Week Disposition Disposition (needs filled in before D/C Order can be placed): Long-Term Facility Charges/Coding Visit Charges Inpatient E&M: 64289 Disch Hosp >30min 10/22/24 1008 Cosigner Signature (if applicable): CC: Dr. Russell Shannon DO; Dr. Onel Tenorio MD~ Signed [facility]09-11-2025 [facility] Medical Records Department [address] [place] [address] Discharge Summary 10/22/24 0957 MR#: [id number] Acct: [id number] Name: SHAGUFTA GUTIERREZ Rep #: [id number] : 1945 79 From: Onel Tenorio MD PCP: Dr. Russell Shannon DO Status:ADM IN Location: [place] [address] Providers Date of Admission: 10/18/24 Primary Care Physician: Dr. Russell Shannon DO Consultations 10/20/24 12:50 Consult: Inpatient Palliative Care Routine Consulting Provider: Ivon Unger Reason for Consult: Decline in pt health EMERGENT Consult: No MD Notified: Yes Date Notified: 10/20/24 Time Notified: 12:50 Method of Notification: Text Reason For Visit: AMS 2/2 UTI Diagnosis Discharge Diagnosis (1) Shortness of breath: Status: Acute Code(s): R06.02 - Shortness of breath (2) LBBB (left bundle branch block): Status: Acute Code(s): I44.7 - Left bundle-branch block, unspecified (3) Lung mass: Status: Acute Code(s): R91.8 - Other nonspecific abnormal finding of lung field (4) Palliative care encounter: Status: Acute Code(s): Z51.5 - Encounter for palliative care Plan 1. Acute metabolic encephalopathy secondary to UTI in the setting of chronic dementia with possible bacterial pneumonia ??? Urine analysis looks very positive for UTI however no urine culture was sent and cannot be sent because the original sample was disposed of by lab ??? Continue with Rocephin and azithromycin, there was concern for possibility of pneumonia given the productive cough ??? Continue with her home medications for her dementia 2. Basal cell carcinoma as well as breast cancer ??? Underwent palliative radiation last year for her breast cancer ??? At the time she had a fungating mass on the right breast that was reduced in size ??? She does have suspicious findings on her chest x-ray consistent with her breast cancer given her dementia family does not want to be overly aggressive ??? They had elected in February to observe her breast cancer and forego any new treatments 3. Hypothyroidism ??? Stable ??? Continue with Synthroid 4. Essential hypertension ???Continue with losartan ??? Renal functions back to baseline 5. Anxiety/depression ??? Stable ??? Continue with her home medications DVT: SCDs Disposition: Awaiting SNF placement Medications at Discharge Home Medications propranolol 60 mg capsule,24 hr,extended release 60 mg PO QHS 03/10/21 vitamin B12 500 mcg-folic acid 400 mcg tablet 1 tab PO DAILY 03/10/21 donepezil 10 mg tablet 10 mg PO DAILY 09/17/23 memantine 5 mg tablet 5 mg PO BID 09/17/23 levothyroxine 75 mcg tablet 75 mcg PO DAILY 10/18/24 losartan 100 mg tablet 100 mg PO DAILY 10/18/24 sertraline 50 mg tablet 50 mg PO DAILY 10/18/24 azithromycin 500 mg tablet 500 mg PO DAILY #1 TAB 10/22/24 cefdinir 300 mg capsule 300 mg PO BID #6 caps 10/22/24 Hospital Course Operations None Procedures None Summary of Care Provided Minutes Spent on Discharge: 33 Hospital Course: Per HPI: SHAGUFTA GUTIERREZ, is a 79-year-old female history of hypertension, breast cancer, memory impairment, hypothyroidism, basal cell carcinoma of the scalp who presented [facility] ED 10/18/2024 due to some confusion on top of her usual memory problems and she complained of some shortness of breath today. In the ED patient afebrile, heart rate 56 and blood pressure 139/69, respiratory rate 14 and pulse ox 97% on room air. CBC with white count 8.6, hemoglobin 12.3, CMP with a BUN of 36 and a creatinine of 1.32, BUN of 36 and creatinine 1.32, glucose 104. Troponin 29, brain CT with no intracranial hemorrhage. Chest x-ray demonstrated extensive pulmonary opacities worrisome for malignancy/metastatic disease. UA obtained which was suspicious for infection. Patient given antibiotics and hospitalist contacted for admission. Patient evaluated at bedside with son present, son provided most of the history as patient is confused and has a difficult time answering questions, she has had difficulties with her memory for 3 years however has been worse over the past 3 to 4 days and she has been increasingly very tired and fatigued recently, shortness of breath she only complained of today without cough or fever. Has some constant sinus problems but nothing new, denies chest pain or diarrhea or abdominal pain. She is unsure if she has had any urinary changes Hospital Course: 1. Acute metabolic encephalopathy in the setting of chronic dementia secondary to UTI with possible bacterial pneumonia???79-year-old female presented from home with increased confusion. Her son states that she lives home alone even with her moderate dementia because she has done well however he noticed over the couple days prior to admission that she seemed more confused which is why he brought her (more content not included)...[facility]09-11-2025 Progress note [facility] Medical Records Department [address] [facility] [place] [address] Progress Note - Hospitalist 10/22/2434 MR#: [id number] Acct: [id number] Name: SHAGUFTA GUTIERREZ Rep #:[id number] : 1945 79 From: Onel dumont MD PCP: Dr. Russell Shannon, DO Status:ADM IN Location: [place] [address] Subjective Subjective Son states she appears little bit better today and a little closer to her baseline Objective Data Objective Data Vital Signs: Vital Signs Temp Pulse Resp BP Pulse Ox O2 Del Method O2 Flow Rate 97.9 F 57 L 16 175/57 H 94 Room Air 2 10/22/24 06:47 10/22/24 06:47 10/22/24 06:47 10/22/24 06:47 10/22/24 06:47 10/22/24 08:54 10/21/24 20:29 Oxygen Flow Rate (L/min) 2 Oxygen Delivery Method Room Air Weight: 86 lb 2 oz Body Mass Index (BMI) 14.3 Intake & Output: Intake and Output for Last 24 Hours 10/21/24 10/22/24 10/23/24 03:59 03:59 03:59 Intake Total 545 / 545 955 / 955 50 / 50 Balance 545 / 545 955 / 955 50 / 50 Medical Nutrition Assessment Dietitian: Malnutrition Criteria Met Start: 10/19/24 13:25 Freq: Status: Active Protocol: Document 10/19/24 13:25 SLA (Rec: 10/19/24 13:25 SLA [id number]) Nutrition Malnutrition Evidence of Yes Malnutrition Exists Malnutrition (severe Chronic ): Evidenced By Suboptimal Energy Intake (Severe),Weight Loss (Severe), Physical Changes (Severe) Clinical Problem Chronic Disease or Condition Related Malnutrition Etiology related to cancer and inadequate energy intake Signs/Symptoms as evidenced by po intake meeting <75% of est nutritional needs, BMI 14.3 and fat loss/muscle wasting throughout body. Status Active Problem Recommendation Dietitian Will continue liberal regular diet as ordered Recommendations/ Will order fortified foods w/ meals as able/ magic cup Changes w/ lunch and dinner for increased nutrition if consumed Will order 4 oz ensure plus high protein 4x/day w/ medpass for increased nutrition if consumed Rec consider appetite stimulant to help encourage increased po intake of meals and ONS If po intake fails to improve, may need to consider supplemental nutrition support, if in accordance w/pt/ family wishes. Lab / Micro Data 10/21/24 05:35 10/21/24 05:35 Social Homelessness:: Sheltered Physical Exam Narrative General: Alert, Oriented x1-2, Cooperative, No apparent distress HEENT: Atraumatic, PERRLA, EOMI, Normocephalic Oral: Moist Mucosa Neck: Supple, No JVD Lungs: Diminished, Normal air movement, No rhonchi, No wheeze, No rales Cardiovascular: Regular rate, Regular Rhythm, Normal S1, Normal S2, No murmurs Abdomen: Soft, Non Tender, Non-Distended, No Hepato-splenomegaly Extremities: No edema, Capillary Refill Less than 3 Seconds Skin: Multiple skin lesions, 1 on her scalp consistent with a basal cell carcinoma Musculoskeletal: No Tenderness to Palpation of Joints or Extremities Neurological: No focal neurological deficits, moves all extremities Psych/Mental Status: Normal Affect, Appropriate Assessment & Plan Assessment/Plan (1) Shortness of breath: (2) LBBB (left bundle branch block): (3) Lung mass: (4) Palliative care encounter: PLAN: Plan 1. Acute metabolic encephalopathy secondary to UTI in the setting of chronic dementia with possiblebacterial pneumonia ? Urine analysis looks very positive for UTI however no urine culture was sent and cannot be sent because the original sample was disposed of by lab ? Continue with Rocephin and azithromycin, there was concern for possibility of pneumonia given theproductive cough ? Continue with her home medications for her dementia 2. Basal cell carcinoma as well as breast cancer ? Underwent palliative radiation last year for her breast cancer ? At the time she had a fungating mass on the right breast that was reduced in size ? She does have suspicious findings on her chest x-ray consistent with her breast cancer given her dementia family does not want to be overly aggressive ? They had elected in February to observe her breast cancer and forego any new treatments 3. Hypothyroidism ? Stable ? Continue with Synthroid 4. Essential hypertension ?Continue with losartan ? Renal functions back to baseline 5. Anxiety/depression ? Stable ? Continue with her home medications DVT: SCDs Disposition: Awaiting SNF placement Charges/Coding Visit Charges Inpatient E&M: 77685 Subs Hosp L1 10/22/24 0935 Cosigner Signature (if applicable): CC: ~ Signed [facility]09-10-2025 Progress note Author Onel Tenorio [facility] Note Date/Time October 21, 2024 4:25pm [facility] Medical Records Department [address] [place] [address] Progress Note - Hospitalist 10/21/24 1621 MR#: [id number] Acct: [id number] Name: SHAGUFTA GUTIERREZ Rep #:[id number] : 1945 79 From: Onel dumont MD PCP: Dr. Russell Shannon, DO Status:ADM IN Location: [place] [address] Subjective Subjective Doing well, no issues overnight Objective Data Objective Data Vital Signs: Vital Signs Temp Pulse Resp BP Pulse Ox O2 Del Method O2 Flow Rate 97.8 F 55 L 16 148/40 H 94 Room Air 2 10/21/24 09:02 10/21/24 09:02 10/21/24 09:02 10/21/24 09:02 10/21/24 09:02 10/21/24 09:04 10/21/24 08:01 Oxygen Flow Rate (L/min) 2 Oxygen Delivery Method Room Air Weight: 86 lb 2 oz Body Mass Index (BMI) 14.3 Intake & Output: Intake and Output for Last 24 Hours 10/20/24 10/21/24 10/22/24 03:59 03:59 03:59 Intake Total 545 / 545 150 / 150 Balance 545 / 545 150 / 150 Medical Nutrition Assessment Dietitian: Malnutrition Criteria Met Start: 10/19/24 13:25 Freq: Status: Active Protocol: Document 10/19/24 13:25 SLA (Rec: 10/19/24 13:25 SLA [id number]) Nutrition Malnutrition Evidence of Yes Malnutrition Exists Malnutrition (severe Chronic ): Evidenced By Suboptimal Energy Intake (Severe),Weight Loss (Severe), Physical Changes (Severe) Clinical Problem Chronic Disease or Condition Related Malnutrition Etiology related to cancer and inadequate energy intake Signs/Symptoms as evidenced by po intake meeting <75% of est nutritional needs, BMI 14.3 and fat loss/muscle wasting throughout body. Status Active Problem Recommendation Dietitian Will continue liberal regular diet as ordered Recommendations/ Will order fortified foods w/ meals as able/ magic cup Changes w/ lunch and dinner for increased nutrition if consumed Will order 4 oz ensure plus high protein 4x/day w/ medpass for increased nutrition if consumed Rec consider appetite stimulant to help encourage increased po intake of meals and ONS If po intake fails to improve, may need to consider supplemental nutrition support, if in accordance w/pt/ family wishes. Lab / Micro Data 10/21/24 05:35 10/21/24 05:35 Labs: Laboratory Results - last 24 hr 10/21/24 05:35: WBC 6.0, RBC 4.43, Hgb 12.4, Hct 39.3, MCV 88.7, MCH 28.0, MCHC 31.6 L, RDW Std Deviation 50.0 H, RDW Coeff of Andrew 15.9 H, Plt Count 264, MPV 9.2, Immature Gran % (Auto) 1.000 H, Neut % (Auto) 72.3 H, Lymph % (Auto) 14.6 L, [place] % (Auto) 8.3, Eos % (Auto) 2.8, Baso % (Auto) 1.0, Absolute Neuts (auto) 4.4, Absolute Lymphs (auto) 0.88, Nucleated RBC % 0, Sodium 142, Potassium 3.6, Chloride 109 H, Carbon Dioxide 23.9, Anion Gap 8, BUN 16, Creatinine 0.95, EstimCreat Clear Calc 28.64 L, Est GFR (MDRD) Non-Af 60, BUN/Creatinine Ratio 16.8, Glucose 89, Calcium 9.2 Social Homelessness:: Sheltered Physical Exam Narrative General: Alert, Oriented x1-2, Cooperative, No apparent distress HEENT: Atraumatic, PERRLA, EOMI, Normocephalic Oral: Moist Mucosa Neck: Supple, No JVD Lungs: Diminished, Normal air movement, No rhonchi, No wheeze, No rales Cardiovascular: Regular rate, Regular Rhythm, Normal S1, Normal S2, No murmurs Abdomen: Soft, Non Tender, Non-Distended, No Hepato-splenomegaly Extremities: No edema, Capillary Refill Less than 3 Seconds Skin: Multiple skin lesions, 1 on her scalp consistent with a basal cell carcinoma Musculoskeletal: No Tenderness to Palpation of Joints or Extremities Neurological: No focal neurological deficits, moves all extremities Psych/Mental Status: Normal Affect, Appropriate Assessment & Plan Assessment/Plan (1) Shortness of breath: (2) LBBB (left bundle branch block): (3) Lung mass: (4) Palliative care encounter: PLAN: Plan 1. Acute metabolic encephalopathy secondary to UTI in the setting of chronic dementia with possible bacterial pneumonia ? Urine analysis looks very positive for UTI however no urine culture was sent and cannot be sent because the original sample was disposed of by lab ? Continue with Rocephin and azithromycin, there was concern for possibility of pneumonia given the productive cough ? Continue with her home medications for her dementia 2. Basal cell carcinoma as well as breast cancer ? Underwent palliative radiation last year for her breast cancer ? At the time she had a fungating mass on the right breast that was reduced in size ? She does have suspicious findings on her chest x-ray consistent with her breast cancer given her dementia family does not want to be overly aggressive ? They had elected in February to observe her breast cancer and forego any new treatments 3. Hypothyroidism ? Stable ? Continue with Synthroid 4. Essential hypertension ?Continue with losartan ? Renal functions back to baseline 5. Anxiety/depression ? Stable ? Continue with her home medications DVT: SCDs Charges/Coding Visit Charges Inpatient E&M: 93634 Subs Hosp L2 10/21/24 1625 <Electronically signed by Onel Tenorio MD> Cosigner Signature (if applicable): CC: ~ Signed [facility] Work Phone: [phone] 568-108609-10-2025 Progress note [facility] Medical Records Department [address] [place] [address] Progress Note - Hospitalist 10/21/24 162 MR#: [id number] Acct: [id number] Name: SHAGUFTA GUTIERREZ Rep #:[id number] : 1945 79 From: Onel dumont MD PCP: Dr. Russell Shannon, DO Status:ADM IN Location: [facility] CI480-9 Subjective Subjective Doing well, no issues overnight Objective Data Objective Data Vital Signs: Vital Signs Temp Pulse Resp BP Pulse Ox O2 Del Method O2 Flow Rate 97.8 F 55 L 16 148/40 H 94 Room Air 2 10/21/24 09:02 10/21/24 09:02 10/21/24 09:02 10/21/24 09:02 10/21/24 09:02 10/21/24 09:04 10/21/24 08:01 Oxygen Flow Rate (L/min) 2 Oxygen Delivery Method Room Air Weight: 86 lb 2 oz Body Mass Index (BMI) 14.3 Intake & Output: Intake and Output for Last 24 Hours 10/20/24 10/21/24 10/22/24 03:59 03:59 03:59 Intake Total 545 / 545 150 / 150 Balance 545 / 545 150 / 150 Medical Nutrition Assessment Dietitian: Malnutrition Criteria Met Start: 10/19/24 13:25 Freq: Status: Active Protocol: Document 10/19/24 13:25 SLA (Rec: 10/19/24 13:25 SLA [id number]) Nutrition Malnutrition Evidence of Yes Malnutrition Exists Malnutrition (severe Chronic ): Evidenced By Suboptimal Energy Intake (Severe),Weight Loss (Severe), Physical Changes (Severe) Clinical Problem Chronic Disease or Condition Related Malnutrition Etiology related to cancer and inadequate energy intake Signs/Symptoms as evidenced by po intake meeting <75% of est nutritional needs, BMI 14.3 and fat loss/muscle wasting throughout body. Status Active Problem Recommendation Dietitian Will continue liberal regular diet as ordered Recommendations/ Will order fortified foods w/ meals as able/ magic cup Changes w/ lunch and dinner for increased nutrition if consumed Will order 4 oz ensure plus high protein 4x/day w/ medpass for increased nutrition if consumed Rec consider appetite stimulant to help encourage increased po intake of meals and ONS If po intake fails to improve, may need to consider supplemental nutrition support, if in accordance w/pt/ family wishes. Lab / Micro Data 10/21/24 05:35 10/21/24 05:35 Labs: Laboratory Results - last 24 hr 10/21/24 05:35: WBC 6.0, RBC 4.43, Hgb 12.4, Hct 39.3, MCV 88.7, MCH 28.0, MCHC 31.6 L, RDW Std Deviation 50.0 H, RDW Coeff of Andrew 15.9 H, Plt Count 264, MPV 9.2, Immature Gran % (Auto) 1.000 H, Neut% (Auto) 72.3 H, Lymph % (Auto) 14.6 L, [place] % (Auto) 8.3, Eos % (Auto) 2.8, Baso % (Auto) 1.0, Absolute Neuts (auto) 4.4, Absolute Lymphs (auto) 0.88, Nucleated RBC % 0, Sodium 142, Potassium 3.6, Chloride 109 H, Carbon Dioxide 23.9, Anion Gap 8, BUN 16, Creatinine 0.95, EstimCreat Clear Calc 28.64 L, Est GFR (MDRD) Non-Af 60, BUN/Creatinine Ratio 16.8, Glucose 89, Calcium 9.2 Social Homelessness:: Sheltered Physical Exam Narrative General: Alert, Oriented x1-2, Cooperative, No apparent distress HEENT: Atraumatic, PERRLA, EOMI, Normocephalic Oral: Moist Mucosa Neck: Supple, No JVD Lungs: Diminished, Normal air movement, No rhonchi, No wheeze, No rales Cardiovascular: Regular rate, Regular Rhythm, Normal S1, Normal S2, No murmurs Abdomen: Soft, Non Tender, Non-Distended, No Hepato-splenomegaly Extremities: No edema, Capillary Refill Less than 3 Seconds Skin: Multiple skin lesions, 1 on her scalp consistent with a basal cell carcinoma Musculoskeletal: No Tenderness to Palpation of Joints or Extremities Neurological: No focal neurological deficits, moves all extremities Psych/Mental Status: Normal Affect, Appropriate Assessment & Plan Assessment/Plan (1) Shortness of breath: (2) LBBB (left bundle branch block): (3) Lung mass: (4) Palliative care encounter: PLAN: Plan 1. Acute metabolic encephalopathy secondary to UTI in the setting of chronic dementia with possiblebacterial pneumonia ? Urine analysis looks very positive for UTI however no urine culture was sent and cannot be sent because the original sample was disposed of by lab ? Continue with Rocephin and azithromycin, there was concern for possibility of pneumonia given theproductive cough ? Continue with her home medications for her dementia 2. Basal cell carcinoma as well as breast cancer ? Underwent palliative radiation last year for her breast cancer ? At the time she had a fungating mass on the right breast that was reduced in size ? She does have suspicious findings on her chest x-ray consistent with her breast cancer given her dementia family does not want to be overly aggressive ? They had elected in February to observe her breast cancer and forego any new treatments 3. Hypothyroidism ? Stable ? Continue with Synthroid 4. Essential hypertension ?Continue with losartan ? Renal functions back to baseline 5. Anxiety/depression ? Stable ? Continue with her home medications DVT: SCDs Charges/Coding Visit Charges Inpatient E&M: 30183 Subs Hosp L2 10/21/24 1625 Cosigner Signature (if applicable): CC: ~ Signed [facility]09-10-2025 Discharge summary Author Onel Tenorio [facility] Note Date/Time October 21, 2024 8:50am [facility] Medical Records Department [address] [place] [address] [facility] Care MR#: [id number] Acct: [id number] Name: SHAGUFTA GUTIERREZ Rep #:[id number] : 1945 79 From: Onel dumont MD PCP: Dr. Russell Shannon, DO Status:ADM IN Certification of patient admission REQUIRED AT TIME OF ADMISSION. I CERTIFY THAT POST-HOSPITAL ECF SERVICES ARE REQUIRED TO BE GIVEN ON AN IN-PATIENT BASIS BECAUSE OF THE ABOVE NAMED PATIENT'S NEED FOR CORRECTION CARE ON A CONTINUING BASIS FOR THE CONDITION(S) FOR WHICH HE/SHE WAS RECEIVING IN-PATIENT HOSPITAL SERVICES PRIOR TO HIS/HER TRANSFER TO THE ECF. 10/21/24 0850<Electronically signed by Onel Tenorio MD> Diet Diet Order/Speech Therapy: INPATIENT Hospital Diet / Speech Therapy Order(s) 10/18/24 23:25 Diet: Regular - General Food consistency:: Regular Liquid Consistency:: Regular/Thin Type of Dietary Supplement:: Magic Cup Dessert Diet Comments: fortified foods w/ meals as able Routine Orders/Code Status Routine Lab Work: CBC and BMP Code Status: DNRCC-A DC O2, CPAP, BIPAP needs Home O2 Discharge instructions: No Wound(s) top of head: Wound Type: skin ca left outer ankle: Wound Type: scabbed area right inner ankle: Wound Type: scabbed area left lower leg: Wound Type: scab left upper lip: Wound Type: ulcer/skin cancer FOREHEAD: Wound Type: SKIN CANCER Therapies Physical Therapy: Eval and Treat Occupational Therapy: Eval and Treat Problem/Diagnosis (1) Shortness of breath: Status: Acute Code(s): R06.02 - Shortness of breath (2) LBBB (left bundle branch block): Status: Acute Code(s): I44.7 - Left bundle-branch block, unspecified (3) Lung mass: Status: Acute Code(s): R91.8 - Other nonspecific abnormal finding of lung field (4) Palliative care encounter: Status: Acute Code(s): Z51.5 - Encounter for palliative care Plan 1. Acute metabolic encephalopathy secondary to UTI in the setting of chronic dementia ? Urine analysis looks very positive for UTI however no urine culture was sent ? Ordered urine culture today however the laboratory has already thrown out the urine sample from admission ? She is already received multiple doses of antibiotics so at this point urine culture would be useless from a new sample ? Continue with Rocephin and azithromycin, there was concern for possibility of pneumonia given the productive cough ? Continue with her home medications for her dementia 2. Basal cell carcinoma as well as breast cancer ? Underwent palliative radiation last year for her breast cancer ? At the time she had a fungating mass on the right breast that was reduced in size ? She does have suspicious findings on her chest x-ray consistent with her breast cancer given her dementia will discuss with family if they would like to proceed with further investigation ? They had not elected in February to observe her breast cancer and forego any new treatments 3. Hypothyroidism ? Stable ? Continue with Synthroid 4. Essential hypertension ? Can restart losartan tomorrow ? Renal functions back to baseline 5. Anxiety/depression ? Stable ? Continue with her home medications DVT: SCDs Allergies/Procedures Done in Hospital Allergies codeine Allergy (Verified 10/18/24 17:16) Other simvastatin Allergy (Verified 10/18/24 17:16) Other Procedures: None Type of Care/Length of Stay Estimated LOS: Convalescent Care Less Than 30 days Type of Care Needed: Skilled Rehab Potential: Good Prognosis: Good Additional Orders/Day of Discharge Day of Discharge: 10/21/24 Dietary and Speech Recommendations Dietitian Recommendations/Changes: Will continue liberal regular diet as ordered Will order fortified foods w/ meals as able/ magic cup w/ lunch and dinner for increased nutrition if consumed Will order 4 oz ensure plus high protein 4x/day w/ medpass for increased nutrition if consumed Rec consider appetite stimulant to help encourage increased po intake of meals and ONS If po intake fails to improve, may need to consider supplemental nutrition support, if in accordance w/ pt/family wishes. Discharge Plan Admission Admit Date/Time: 10/18/24 20:30 Attending Provider: Onel Tenorio Primary Care Provider: Russell Shannon Consulting Providers: Oksana Fortune; Ivon Unger Instructions Additional Instructions / Restrictions: Follow-up with your primary care doctor to monitor your kidney function Discharge Orders/Prescriptions Prescriptions: New cefdinir 300 mg capsule 300 mg PO BID Qty: 10 0RF azithromycin 500 mg tablet 500 mg PO DAILY 2 Days Qty: 2 0RF Continued memantine 5 mg tablet 5 mg PO BID donepezil 10 mg tablet 10 mg PO DAILY levothyroxine 100 mcg tablet 50 mcg PO DAILY Patient Comments: thyroid medication Rx Instructions: Take 2 Doses on Saturday losartan 25 mg tablet 100 mg PO QHS Patient Comments: blood pressure levothyroxine 50 mcg Capsule 100 mcg PO IGNACIO vitamin Y40-ozbus acid 500-400 mcg Tablet 1 tab PO DAILY propranolol 60 MG capsule,extended release 24 hr 60 mg PO QHS Patient Comments: heart/blood pressure levothyroxine 75 mcg tablet 75 mcg PO DAILY losartan 100 mg tablet 100 mg PO DAILY sertraline 50 mg tablet 50 mg PO DAILY Referrals / Follow Up: Russell Shannon DO [Primary Care Provider] - Within 1 Week Disposition Disposition (needs filled in before D/C Order can be placed): Long-Term Facility 10/21/24 0850 <Electronically signed by Onel Tenorio MD> Cosigner Signature (if applicable): CC: IMPACT HAMMER OPERATORGaston Unger; Dr. Russell Shannon DO; Dr. Oksana Fortune MD~ [facility] Work Phone: [phone]) 795-871809-10-2025 Discharge summary [facility] Medical Records Department [address] [place] [id number] Transfer to [facility] MR#: [id number] Acct: [id number] Name: SHAGUFTA GUTIERREZ Rep #:[id number] : 1945 79 From: Onel dumont MD PCP: Dr. Russell Shannon DO Status:ADM IN Certification of patient admission REQUIRED AT TIME OF ADMISSION. I CERTIFY THAT POST-HOSPITAL [facility] SERVICES ARE REQUIRED TO BE GIVEN ON AN IN-PATIENT BASIS BECAUSE OF THE ABOVE NAMED PATIENT'S NEED FOR CORRECTION CARE ON A CONTINUING BASIS FOR THE CONDITION(S) FOR WHICH HE/SHE WAS RECEIVING IN-PATIENT HOSPITAL SERVICES PRIOR TO HIS/HER TRANSFER TO THE [facility]. 10/21/24 0850 Diet Diet Order/Speech Therapy: INPATIENT Hospital Diet / Speech Therapy Order(s) 10/18/24 23:25 Diet: Regular - General Food consistency:: Regular Liquid Consistency:: Regular/Thin Type of Dietary Supplement:: Magic Cup Dessert Diet Comments: fortified foods w/ meals as able Routine Orders/Code Status Routine Lab Work: CBC and BMP Code Status: DNRCC-A DC O2, CPAP, BIPAP needs Home O2 Discharge instructions: No Wound(s) top of head: Wound Type: skin ca left outer ankle: Wound Type: scabbed area right inner ankle: Wound Type: scabbed area left lower leg: Wound Type: scab left upper lip: Wound Type: ulcer/skin cancer FOREHEAD: Wound Type: SKIN CANCER Therapies Physical Therapy: Eval and Treat Occupational Therapy: Eval and Treat Problem/Diagnosis (1) Shortness of breath: Status: Acute Code(s): R06.02 - Shortness of breath (2) LBBB (left bundle branch block): Status: Acute Code(s): I44.7 - Left bundle-branch block, unspecified (3) Lung mass: Status: Acute Code(s): R91.8 - Other nonspecific abnormal finding of lung field (4) Palliative care encounter: Status: Acute Code(s): Z51.5 - Encounter for palliative care Plan 1. Acute metabolic encephalopathy secondary to UTI in the setting of chronic dementia ? Urine analysis looks very positive for UTI however no urine culture was sent ? Ordered urine culture today however the laboratory has already thrown out the urine sample from admission ? She is already received multiple doses of antibiotics so at this point urine culture would be useless from a new sample ? Continue with Rocephin and azithromycin, there was concern for possibility of pneumonia given theproductive cough ? Continue with her home medications for her dementia 2. Basal cell carcinoma as well as breast cancer ? Underwent palliative radiation last year for her breast cancer ? At the time she had a fungating mass on the right breast that was reduced in size ? She does have suspicious findings on her chest x-ray consistent with her breast cancer given her dementia will discuss with family if they would like to proceed with further investigation ? They had not elected in February to observe her breast cancer and forego any new treatments 3. Hypothyroidism ? Stable ? Continue with Synthroid 4. Essential hypertension ? Can restart losartan tomorrow ? Renal functions back to baseline 5. Anxiety/depression ? Stable ? Continue with her home medications DVT: SCDs Allergies/Procedures Done in Hospital Allergies codeine Allergy (Verified 10/18/24 17:16) Other simvastatin Allergy (Verified 10/18/24 17:16) Other Procedures: None Type of Care/Length of Stay Estimated LOS: Convalescent Care Less Than 30 days Type of Care Needed: Skilled Rehab Potential: Good Prognosis: Good Additional Orders/Day of Discharge Day of Discharge: 10/21/24 Dietary and Speech Recommendations Dietitian Recommendations/Changes: Will continue liberal regular diet as ordered Will order fortified foods w/ meals as able/ magic cup w/ lunch and dinner for increased nutrition if consumed Will order 4 oz ensure plus high protein 4x/day w/ medpass for increased nutrition if consumed Rec consider appetite stimulant to help encourage increased po intake of meals and ONS If po intake fails to improve, may need to consider supplemental nutrition support, if in accordance w/ pt/family wishes. Discharge Plan Admission Admit Date/Time: 10/18/24 20:30 Attending Provider: Onel Tenorio Primary Care Provider: Russell Shannon Consulting Providers: Oksana Fortune; Ivon Unger Instructions Additional Instructions / Restrictions: Follow-up with your primary care doctor to monitor your kidney function Discharge Orders/Prescriptions Prescriptions: New cefdinir 300 mg capsule 300 mg PO BID Qty: 10 0RF azithromycin 500 mg tablet 500 mg PO DAILY 2 Days Qty: 2 0RF Continued memantine 5 mg tablet 5 mg PO BID donepezil 10 mg tablet 10 mg PO DAILY levothyroxine 100 mcg tablet 50 mcg PO DAILY Patient Comments: thyroid medication Rx Instructions: Take 2 Doses on Saturday losartan 25 mg tablet 100 mg PO QHS Patient Comments: blood pressure levothyroxine 50 mcg Capsule 100 mcg PO IGNACIO vitamin Z92-jsgyj acid 500-400 mcg Tablet 1 tab PO DAILY propranolol 60 MG capsule,extended release 24 hr 60 mg PO QHS Patient Comments: heart/blood pressure levothyroxine 75 mcg tablet 75 mcg PO DAILY losartan 100 mg tablet 100 mg PO DAILY sertraline 50 mg tablet 50 mg PO DAILY Referrals / Follow Up: Russell Shannon DO [Primary Care Provider] - Within 1 Week Disposition Disposition (needs filled in before D/C Order can be placed): Long-Term Facility 10/21/24 0850 Cosigner Signature (if applicable): CC: IMPACT HAMMER OPERATOR-C Ivon Unger; Dr. Russell Shannon DO; Dr. Oksana Fortune MD~ [facility]09-09-2025 Consult note Author Ivon Marrero [facility] Note Date/Time October 20, 2024 6:32pm [facility] Medical Records Department [address] [place] [address] Consultation - Palliative Care 10/20/24 1340 MR#: [id number] Acct: [id number] Name: SHAGUFTA GUTIERREZ Rep #:[id number] : 1945 79 From: Ivon MANE PCP: Dr. Russell Shannon, DO Status:ADM IN Location: [facility] [id number] [facility] Medical History Basal cell carcinoma of scalp Wears glasses Cancer Forgetfulness Anxiety Thyroid disease Arthritis Difficulty swallowing Former smoker Hypertension History of echocardiogram History of stress test Former smoker Neoplasm of skin of scalp Home Medications ?Medication ?Instructions ?Recorded ?Last Taken ?Type levothyroxine 100 mcg tablet 50 mcg PO DAILY 03/07/21 03/13/21 History losartan 25 mg tablet 100 mg PO QHS 03/07/21 Unkno wn History levothyroxine 50 mcg capsule 100 mcg PO IGNACIO 03/10/21 Un known History propranolol 60 mg capsule,24 60 mg PO QHS 03/10/21 Unk nown History hr,extended release vitamin B12 500 mcg-folic acid 400 1 tab PO DAILY 02/12 10/02 Unknown History mcg tablet donepezil 10 mg tablet 10 mg PO DAILY 09/17/23 Unkn own History memantine 5 mg tablet 5 mg PO BID 09/17/23 Unknown History levothyroxine 75 mcg tablet 75 mcg PO DAILY 10/18/24 U nknown History losartan 100 mg tablet 100 mg PO DAILY 10/18/24 Unk nown History sertraline 50 mg tablet 50 mg PO DAILY 10/18/24 Unkn own History azithromycin 500 mg tablet 500 mg PO DAILY 2 days #2 t abs 10/20/24 Unknown Rx cefdinir 300 mg capsule 300 mg PO BID #10 caps 10/20 Unknown Rx Allergy/AdvReac Type Severity Reaction Status Date / Time codeine Allergy Other Verified 10/18/24 17:16 simvastatin Allergy Other Verified 10/18/24 17:16 Family History Mother Hypertension CVA (cerebral vascular accident) Other No pertinent family history Surgical History History of basal cell carcinoma excision History of local excision of skin lesion History of cystoscopy Hx of submandibular gland removal Hx of tubal ligation Hx of total thyroidectomy History of thyroid surgery Social History housing: house Smoking Status: Former smoker alcohol intake: current alcohol intake frequency: holidays/special occasions only details: 1 glass of wine substance use type: does not use additional social history: Does Not Take Aspirin Does Not Take Ibuprofen Homelessness:: Sheltered ROS Review of Systems ROS Unobtainable: due to mental status and other Details: Limited related to dementia. Constitutional Constitutional: Reports anorexia and other Details: Patient states that she doesnot want to eat. This is apparently not uncommon for her while at home either. Eyes Eyes: Reports systems reviewed and no addt'l complaints, except as documented ENT HEENT: Reports systems reviewed and no addt'l complaints, except as documented Cardiovascular Cardiovascular: Reports systems reviewed and no addt'l complaints, except as documented Respiratory/Chest Respiratory/Chest: Reports dyspnea and other Details: Slightly dyspneic especially on exertion. Gastrointestinal Gastrointestinal: Reports systems reviewed and no addt'l complaints, except as documented Genitourinary Genitourinary: Reports systems reviewed and no addt'l complaints, except as documented Musculoskeletal Musculoskeletal: Reports systems reviewed and no addt'l complaints, except as documented Integumentary Integumentary: Reports wounds and other Details: this thing on my head Neurologic Neurologic: Reports confusion Psychiatric Psychiatric: Reports anxiety and memory loss Allergic/Immunologic Allergic/Immunologic: Reports systems reviewed and no addt'l complaints, except as documented Physical Exam Const alert Constitutional Narrative: Oriented to person only. HEENT HEENT Narrative: Patient has a large wound to the top of her head approximately 5 cm in circumference. This is related to basal cell carcinoma. She also has a large growth to the front of her head which extends approximately 3 cm outward. Neck General: trachea midline Resp Auscultation: wheezes and diminished lung sounds Cardio regular rate Peripheral Pulses: pulses 2+ throughout GI normal to inspection, nondistended, normoactive bowel sounds Extremity normal capillary refill Skin Skin Narrative: Patient has circumferential wound to the top of her head with dressing in place. She also has a growth to the front of her head most likely basal cell carcinoma. Neuro Neuro Narrative: Patient is alert and oriented to person only. She does not know the name [place] in but she cannot tell me the building that she was in there could she tell me her birthday, year or date. Speech: speech normal Psych Psych Narrative: Patient is very guarded and suspicious. Mood & Affect: flat affect Charges/Coding Palliative Care Palliative Care: 36232 New Pt Consult 80+ min HPI Current admission Current Code Status: FULL CODE Associated Diagnosis: DEMENTIA, BREAST CANCER, LUNG MASS, BASAL CELL OF THE SCALP Consult Data Date of Consult: 10/20/24 Location of consult: [facility] Reason for referral: GOALS OF CARE Referral source: Palliative care diagnosis (Summary list): DEMENTIA, BREAST CA, LUNG MASS BASAL OF THE SCALP Palliative care services/treatment (Accepted, as consult): ACCEPTED Case discussed with referring provider: GOALS OF CARE VIA TEXT as well as CODE STATUS change. HPI Narrative HPI Narrative: 10/20/24: I do meeting with the patient at bedside reviewed documentation, labs and radiological studies. I then met with the patient, Shagufta at bedside. I noted her to be significantly confused. She was alert to person and place as being [place] but she was unsure of where she was in [place]. She was unableto tell me the date, day or the year. She was unable to tell me her . She state that I dont know what it happening. I am very confused. She acknowledged that she was anxious. During my physical exam and found that she had a large wound to the top of her head covered with a bandage. Per documentation this is also cell carcinoma. I also noted a large growth to the frontal area of her head. Per documentation the patient did have palliative radiation for stage IIIb grade 2 breast cancer. She did present to the emergency department with increased confusion and shortness of breath. She was found to have a UTI which she has been treated with antibiotics. She was also to have 2 large masses in her lungs. This is thought to be metastatic in nature. When I did had a family meeting with the patient's son, Mir. They endorse that they did not want any her measures with her mother and have transitioned her to a DNR DNI. They also stated that they are interested in themother's comfort and would like to transition her to hospice. We then discussedwhat this would look like for him going forward and I did state that they were unable to provide 24/7 care in the home thus they would like her to go to assisted facility. They did state that they are unsure if her insurance will cover inpatient stay. After weighing the benefits versus burdens of hospice versus palliative care they have decided to transition her to palliativecare while they await guidance from insurance and social work for options going forward. I did provide the brothers with choices for palliative care services in which they decided [facility]. I did reachout to the nurse practitioner with [facility] in which she stated that she would contact the son, Nahun to set up a family meeting for tomorrow. Did update his management about family decisions. They also provided us with 3 options that they would like to investigate from a SNF option. All questions were answered. Palliative care will continue to follow for support during hospitalization. I did provide a warm handoff to the palliative care nurse practitioner at [facility]. HPI Narrative per hospitalist: SHAGUFTA GUTIERREZ, is a 79-year-old female history of hypertension, breast cancer, memory impairment, hypothyroidism, basal cell carcinoma of the scalp who presented [facility] ED 10/18/2024 due to some confusion on top ofher usual memory problems and she complained of some shortness of breath today. In the ED patient afebrile, heart rate 56 and blood pressure 139/69, respiratoryrate 14 and pulse ox 97% on room air. CBC with white count 8.6, hemoglobin 12.3, CMP with a BUN of 36 and a creatinine of 1.32, BUN of 36 and creatinine 1.32, glucose 104. Troponin 29, brain CT with no intracranial hemorrhage. Chest x-ray demonstrated extensive pulmonary opacities worrisome for malignancy/metastatic disease. UA obtained which was suspicious for infection. Patient given antibiotics and hospitalist contacted for admission. Patient evaluated at bedside with son present, son provided most of the history as patient is confused and has a difficult time answering questions, she has had difficulties with her memory for 3 years however has been worse over the past 3 to 4 days and she has been increasingly very tired and fatigued recently, shortness of breath she only complained of today without cough or fever. Has some constant sinus problems but nothing new, denies chest pain or diarrhea or abdominal pain. She is unsure if she has had any urinary changes Palliative Assessment Advanced Directive - Current Admission Advance Directive: Advance Directive ON ADMISSION - REFERENCE 3 Do you have a Healthcare Yes 10/18/24 21:01 Living Will? Is a Healthcare Living Will Yes, It is scanned in 10/18/24 21:01 present in the medical record? Do you have a Healthcare Power Yes 10/18/24 21:01 of Turning Machine Operator Helper? Is a Healthcare Power of Yes, paper copy provided 10/18/24 21:01 Turning Machine Operator Helper present in the medical rec Do You Want Additional Declined 10/18/24 21:01 Information on Advanced Directives or Healthcare Proxy/DPOA comments: SON Alcides [phone]. Psychosocial/Spiritual Information Living situation/Marital status: lives alone [place]ographic location: [place] Supports: family Sikh/Swetha or spiritual preference: Gnosticist Spiritual distress: Denies Prior functional status: Patient was living independently although her son states that she was having difficulty with meal prep and bathing. Assistive devices at home: None Cultrual issues: none Information about the patient as a person: Patient enjoys spending time with family. Symptoms Palliative performance scale: 60 Palliative prognostic index: 10.0 (if the PPI is greater than 6.0, survival is less than 3 weeks.) Dyspnea symptoms: Moderate Constipation symptoms: None Anorexia symptoms: Severe Cough symptoms: Mild Insomnia symptoms: None Diarrhea symptoms: None Fatigue symptoms: Mild Weakness symptoms: Mild Confusion symptoms: Severe Side Effects & Interventions: Limited as the patient is significantly confused. Objective Data Objective Data Vital Signs: Vital Signs Temp Pulse Resp BP Pulse Ox O2 Del Method O2 Flow Rate 97.9 F 60 16 126/45 H 92 Room Air 2 10/20/24 08:11 10/20/24 08:11 10/20/24 08:11 10/20/24 08:11 10/20/24 08:11 10/20/24 10:00 10/20/24 07:17 Oxygen Flow Rate (L/min) 2 Oxygen Delivery Method Room Air Weight: 86 lb 2 oz Body Mass Index (BMI) 14.3 Intake & Output: Intake and Output for Last 24 Hours 10/18/24 10/19/24 10/20/24 23:59 23:59 23:59 Intake Total 300 / 300 2000.5 / 1999.5 240 / 240 Balance 300 / 300 240 / 240 Medical Nutrition Assessment Dietitian: Malnutrition Criteria Met Start: 10/19/24 13:25 Freq: Status: Active Protocol: Document 10/19/24 13:25 JUAN JOSE (Rec: 10/19/24 13:25 SLA [id number]) Nutrition Malnutrition Evidence of Yes Malnutrition Exists Malnutrition (severe Chronic ): Evidenced By Suboptimal Energy Intake (Severe),Weight Loss (Severe), Physical Changes (Severe) Clinical Problem Chronic Disease or Condition Related Malnutrition Etiology related to cancer and inadequate energy intake Signs/Symptoms as evidenced by po intake meeting <75% of est nutritional needs, BMI 14.3 and fat loss/muscle wasting throughout body. Status Active Problem Recommendation Dietitian Will continue liberal regular diet as ordered Recommendations/ Will order fortified foods w/ meals as able/ magic cup Changes w/ lunch and dinner for increased nutrition if consumed Will order 4 oz ensure plus high protein 4x/day w/ medpass for increased nutrition if consumed Rec consider appetite stimulant to help encourage increased po intake of meals and ONS If po intake fails to improve, may need to consider supplemental nutrition support, if in accordance w/pt/ family wishes. Lab / Micro Data Attestation: I reviewed the patient's lab results. 10/19/24 05:46 10/19/24 05:46 Social Homelessness:: Sheltered Impressions & Recommendations Patient & Family Issues discussed with the patient and family: CODE STATUS and palliative versus hospice. Patient goal: Patient was unable to participate in meaningful conversation Family goal: Family is wanting their mother to be comfortable although they understand that they have to negotiate finances prior to transitioning to hospice. Ethical & Legal Ethical and legal: Based on the patient's cognition, all legal decisions will bedeferred to the patient's sons Alcides and Sunny. Impressions Impressions: Patient would qualify for hospice. Recommentation Palliative recommendations: Although patient would qualify for hospice, patient would most likely benefit most from palliative care at this time. Encouter Achieved as a result of this Palliative Care Encounter: [[id number], [phone], [phone] ] minutes were spent in total for this visit which consisted, primarily of counseling and education dealing with the complex and emotionally intense issues of symptom management and palliative care in the setting of serious and potentially life-threatening illness. Review of documentation, labs and radiological studies. ?Patient/family had the opportunity to ask questions Plan (1) Shortness of breath: PLAN: Medical management per primary team (2) LBBB (left bundle branch block): PLAN: Medical management per primary team (3) Lung mass: PLAN: Medical management per primary team (4) Palliative care encounter: PLAN: Family is agreeable to the patient transitioning to SNF with palliative care being provided by [facility]. Plan is for the patient to eventually transition to hospice care. 10/20/24 183 <Electronically signed by Ivon MANE> Cosigner Signature (if applicable): CC: Dr. Russell Shannon, DO~ Signed [facility] Work Phone: [phone] 707-633609-09-2025 Progress note Author Onel Tenorio [facility] Note Date/Time October 20, 2024 5:54pm [facility] Medical Records Department [address] [place] [id number] Progress Note - Hospitalist 10/19/24 0937 MR#: [id number] Acct: [id number] Name: SHAGUFTA GUTIERREZ Rep #:[id number] : 1945 79 From: Onel dumont MD PCP: Dr. Russell Shannon, Status:ADM IN [id number] Subjective Subjective Continues to be a little bit altered. Unfortunately urine sample was thrown away by the lab and she has received antibiotics so cannot obtain a urine culture, unfortunately no urine culture was sent from the ER Objective Data Objective Data Vital Signs: Vital Signs Temp Pulse Resp BP Pulse Ox O2 Del Method O2 Flow Rate 97.6 F L 67 16 160/79 H 95 Nasal Cannula 2 10/19/24 08:11 10/19/24 08:11 10/19/24 08:11 10/19/24 08:11 10/19/24 08:11 10/19/24 08:13 10/19/24 08:13 Oxygen Flow Rate (L/min) 2 Oxygen Delivery Method Nasal Cannula Weight: 86 lb 2 oz Body Mass Index (BMI) 14.3 Intake & Output: Intake and Output for Last 24 Hours 10/18/24 10/19/24 10/20/24 03:59 03:59 03:59 Intake Total 300 / 300 Balance 300 / 300 Lab / Micro Data 10/19/24 05:46 10/19/24 05:46 Labs: Laboratory Results - last 24 hr 10/18/24 17:48: WBC 8.6, RBC 4.43, Hgb 12.3, Hct 38.0, MCV 85.8, MCH 27.8, MCHC 32.4, RDW Std Deviation 47.4 H, RDW Coeff of Andrew 15.6 H, Plt Count 317, MPV 9.4,Sodium 138, Potassium 3.8, Chloride 104, Carbon Dioxide 20.3 L, Anion Gap 14, BUN 36 H, Creatinine 1.32 H, Estim Creat Clear Calc 20.08 L, Est GFR (MDRD) Non-Af 41 L, BUN/Creatinine Ratio 27.2 H, Glucose 104 H, Calcium 9.9, Total Bilirubin 0.28, AST 67 H, ALT 24, Alkaline Phosphatase 100, Troponin T High Sens29 H, Total Protein 6.4, Albumin 3.2 L, Globulin 3.2, Albumin/Globulin Ratio 1.0 10/18/24 18:39: Urine Color Yellow, Urine Clarity Sl. Cloudy, Urine pH 5.0, Ur Specific Dumas 1.025, Urine Protein 30 H, Urine Glucose (UA) Normal, Urine Ketones Negative, Urine Occult Blood 50 H, Urine Nitrite Positive H, Urine Bilirubin Negative, Urine Urobilinogen Normal, Ur Leukocyte Esterase 500 H, Urine RBC 0-5 SEEN, Urine WBC 5-10 SEEN, Ur Squamous Epith Cells 0-5 SEEN, UrineBacteria 3+, Urine Mucus 0 SEEN 10/18/24 19:48: Troponin T Hi Sens 2 Hr 27 H 10/19/24 00:44: Troponin T Hi Sens 4Hr 32 H 10/19/24 05:46: WBC 6.4, RBC 4.25, Hgb 11.7 L, Hct 36.3 L, MCV 85.4, MCH 27.5, MCHC 32.2, RDW Std Deviation 47.1 H, RDW Coeff of Andrew 15.7 H, Plt Count 297, MPV9.7, Immature Gran % (Auto) 0.500, Neut % (Auto) 76.0 H, Lymph % (Auto) 10.7 L, [place] % (Auto) 9.6, Eos % (Auto) 2.3, Baso % (Auto) 0.9, Absolute Neuts (auto) 4.9, Absolute Lymphs (auto) 0.69 L, Nucleated RBC % 0, Sodium 140, Potassium 3.5, Chloride 107, Carbon Dioxide 21.9, Anion Gap 11, BUN 28 H, Creatinine 1.12,Estim Creat Clear Calc 24.30 L, Est GFR (MDRD) Non-Af 49 L, BUN/Creatinine Ratio24.6 H, Glucose 90, Calcium 9.1, TSH 19.100 H Radiography Diagnostic Testing: Radiology Impression Brain CT 10/18/24 17:40 IMPRESSION: Focal soft tissue swelling and gas along the left frontal scalp to be correlatedfor soft tissue injury. No acute intracranial hemorrhage or acute calvarial fracture. - Global parenchymal volume loss and associated ex vacuo ventricular dilation. - Intracranial atherosclerosis and microvascular ischemic changes again noted. - Other findings discussed above. Reading Location: [facility] Chest X-Ray 10/18/24 17:55 IMPRESSION: Extensive pulmonary opacities, worrisome for malignancy/metastatic disease. Superimposed pneumonia can not be ruled out. Findings and recommendations discussed above. Reading Location: [facility] Physical Exam Narrative General: Alert, Oriented x1-2, Cooperative, No apparent distress HEENT: Atraumatic, PERRLA, EOMI, Normocephalic Oral: Moist Mucosa Neck: Supple, No JVD Lungs: Diminished, Normal air movement, No rhonchi, No wheeze, No rales Cardiovascular: Regular rate, Regular Rhythm, Normal S1, Normal S2, No murmurs Abdomen: Soft, Non Tender, Non-Distended, No Hepato-splenomegaly Extremities: No edema, Capillary Refill Less than 3 Seconds Skin: Multiple skin lesions, 1 on her scalp consistent with a basal cell carcinoma Musculoskeletal: No Tenderness to Palpation of Joints or Extremities Neurological: No focal neurological deficits, moves all extremities Psych/Mental Status: Normal Affect, Appropriate Assessment & Plan Assessment/Plan (1) UTI (urinary tract infection): PLAN: Plan 1. Acute metabolic encephalopathy secondary to UTI in the setting of chronic dementia ? Urine analysis looks very positive for UTI however no urine culture was sent ? Ordered urine culture today however the laboratory has already thrown out the urine sample from admission ? She is already received multiple doses of antibiotics so at this point urine culture would be useless from a new sample ? Continue with Rocephin and azithromycin, there was concern for possibility of pneumonia given the productive cough ? Continue with her home medications for her dementia 2. Basal cell carcinoma as well as breast cancer ? Underwent palliative radiation last year for her breast cancer ? At the time she had a fungating mass on the right breast that was reduced in size ? She does have suspicious findings on her chest x-ray consistent with her breast cancer given her dementia will discuss with family if they would like to proceed with further investigation ? They had not elected in February to observe her breast cancer and forego any new treatments 3. Hypothyroidism ? Stable ? Continue with Synthroid 4. Essential hypertension ? Can restart losartan tomorrow ? Renal functions back to baseline 5. Anxiety/depression ? Stable ? Continue with her home medications DVT: SCDs Charges/Coding Visit Charges Inpatient E&M: 88251 Subs Hosp L2 10/19/24 0948 <Electronically signed by Onel Tenorio MD> Cosigner Signature (if applicable): CC: ~ Signed ADDENDUM by Dr. Onel Tenorio MD on 10/20/24 at 1758 Addendum 25-minute discussion with the son at bedside about care planning options given her cancer and dementia in terms of the differences between palliative care and hospice care. We also discussed CODE STATUS and he was open to making her a DNRif necessary however he wanted to find her living will paperwork at home prior to making any decision. Procedures Hospitalists Procedures: 09298 Advncd Care Plan 30 Min 10/20/24 1754<Electronically signed by Onel Tenorio MD> Cosigner Signature (if applicable): cc: ~* Signed [facility] Work Phone: [phone] Consult note [facility] Medical Records Department [address] [place] [address] Consultation - Palliative Care 10/20/24 1340 MR#: [id number] Acct: [id number] Name: ANASTACIOSHAGUFTA ALMONTE Rep #:[id number] : 1945 79 From: Ivon MANE PCP: Dr. Russell Shannon, DO Status:ADM IN Location: [facility] [id number] [facility] Medical History Basal cell carcinoma of scalp Wears glasses Cancer Forgetfulness Anxiety Thyroid disease Arthritis Difficulty swallowing Former smoker Hypertension History of echocardiogram History of stress test Former smoker Neoplasm of skin of scalp Home Medications ?Medication ?Instructions ?Recorded ?Last Taken ?Type levothyroxine 100 mcg tablet 50 mcg PO DAILY 03/07/21 03/13/21 History losartan 25 mg tablet 100 mg PO QHS 03/07/21 Unkno wn History levothyroxine 50 mcg capsule 100 mcg PO IGNACIO 03/10/21 Un known History propranolol 60 mg capsule,24 60 mg PO QHS 03/10/21 Unk nown History hr,extended release vitamin B12 500 mcg-folic acid 400 1 tab PO DAILY 02/12 10/02 Unknown History mcg tablet donepezil 10 mg tablet 10 mg PO DAILY 09/17/23 Unkn own History memantine 5 mg tablet 5 mg PO BID 09/17/23 Unknown History levothyroxine 75 mcg tablet 75 mcg PO DAILY 10/18/24 U nknown History losartan 100 mg tablet 100 mg PO DAILY 10/18/24 Unk nown History sertraline 50 mg tablet 50 mg PO DAILY 10/18/24 Unkn own History azithromycin 500 mg tablet 500 mg PO DAILY 2 days #2 t abs 10/20/24 Unknown Rx cefdinir 300 mg capsule 300 mg PO BID #10 caps 10/20 Unknown Rx Allergy/AdvReac Type Severity Reaction Status Date / Time codeine Allergy Other Verified 10/18/24 17:16 simvastatin Allergy Other Verified 10/18/24 17:16 Family History Mother Hypertension CVA (cerebral vascular accident) Other No pertinent family history Surgical History History of basal cell carcinoma excision History of local excision of skin lesion History of cystoscopy Hx of submandibular gland removal Hx of tubal ligation Hx of total thyroidectomy History of thyroid surgery Social History housing: house Smoking Status: Former smoker alcohol intake: current alcohol intake frequency: holidays/special occasions only details: 1 glass of wine substance use type: does not use additional social history: Does Not Take Aspirin Does Not Take Ibuprofen Homelessness:: Sheltered ROS Review of Systems ROS Unobtainable: due to mental status and other Details: Limited related to dementia. Constitutional Constitutional: Reports anorexia and other Details: Patient states that she doesnot want to eat. This is apparently not uncommon for her while at home either. Eyes Eyes: Reports systems reviewed and no addt'l complaints, except as documented ENT HEENT: Reports systems reviewed and no addt'l complaints, except as documented Cardiovascular Cardiovascular: Reports systems reviewed and no addt'l complaints, except as documented Respiratory/Chest Respiratory/Chest: Reports dyspnea and other Details: Slightly dyspneic especially on exertion. Gastrointestinal Gastrointestinal: Reports systems reviewed and no addt'l complaints, except as documented Genitourinary Genitourinary: Reports systems reviewed and no addt'l complaints, except as documented Musculoskeletal Musculoskeletal: Reports systems reviewed and no addt'l complaints, except as documented Integumentary Integumentary: Reports wounds and other Details: this thing on my head Neurologic Neurologic: Reports confusion Psychiatric Psychiatric: Reports anxiety and memory loss Allergic/Immunologic Allergic/Immunologic: Reports systems reviewed and no addt'l complaints, except as documented Physical Exam Const alert Constitutional Narrative: Oriented to person only. HEENT HEENT Narrative: Patient has a large wound to the top of her head approximately 5 cm in circumference. This is related to basal cell carcinoma. She also has a large growth to the front of her head which extends approximately 3 cm outward. Neck General: trachea midline Resp Auscultation: wheezes and diminished lung sounds Cardio regular rate Peripheral Pulses: pulses 2+ throughout GI normal to inspection, nondistended, normoactive bowel sounds Extremity normal capillary refill Skin Skin Narrative: Patient has circumferential wound to the top of her head with dressing in place. She also has a growth to the front of her head most likely basal cell carcinoma. Neuro Neuro Narrative: Patient is alert and oriented to person only. She does not know the [facility] but she cannot tell me the building that she was in there could she tell me her birthday, year or date. Speech: speech normal Psych Psych Narrative: Patient is very guarded and suspicious. Mood & Affect: flat affect Charges/Coding Palliative Care Palliative Care: 42856 New Pt Consult 80+ min HPI Current admission Current Code Status: FULL CODE Associated Diagnosis: DEMENTIA, BREAST CANCER, LUNG MASS, BASAL CELL OF THE SCALP Consult Data Date of Consult: 10/20/24 Location of consult: [facility] Reason for referral: GOALS OF CARE Referral source: Palliative care diagnosis (Summary list): DEMENTIA, BREAST CA, LUNG MASS BASAL OF THE SCALP Palliative care services/treatment (Accepted, as consult): ACCEPTED Case discussed with referring provider: GOALS OF CARE VIA TEXT as well as CODE STATUS change. HPI Narrative HPI Narrative: 10/20/24: I do meeting with the patient at bedside reviewed documentation, labs and radiological studies. I then met with the patient, Shagufta at bedside. I noted her to be significantly confused. She was alert to person and place as being [place] but she was unsure of where she was in [place]. She was unableto tell me the date, day or the year. She was unable to tell me her . She state that Idont know what it happening. I am very confused. She acknowledged that she was anxious. During my physical exam and found that she had a large wound to the top of her head covered with a bandage. Per documentation this is also cell carcinoma. I also noted a large growth to the frontal area of her head. Per documentation the patient did have palliative radiation for stage IIIb grade 2 breast cancer. She did present to the emergency department with increased confusion and shortness of breath. She was found to have a UTI which she has been treated with antibiotics. She was also to have 2 large masses in her lungs. This is thought to be metastatic in nature. When I did had a family meeting with the patient's son, Mir. They endorse that they did not want any her measures with her mother and have transitioned her to a DNR DNI. They also stated that they are interested in themother's comfort and would like to transition her to hospice. We then discussedwhat this would look like for him going forward and I did state that they were unable to provide 24/7 care in the home thus theywould like her to go to assisted facility. They did state that they are unsure if her insurance will cover inpatient stay. After weighing the benefits versus burdens of hospice versus palliative care they have decided to transition her to palliativecare while they await guidance from insurance and social work for options going forward. I did provide the brothers with choices for palliativecare services in which they decided to utilize [facility]. I did reachout selina nurse practitioner with [facility] in which she stated that she would contact the son, Nahun to setup a family meeting for tomorrow. Did update his management about family decisions. They also provided us with 3 options that they would like to investigate from a SNF option. All questions were answered. Palliative care will continue to follow for support during hospitalization. I did provide a warm handoff to the palliative care nurse practitioner at [facility]. HPI Narrative per hospitalist: SHAGUFTA GUTIERREZ, is a 79-year-old female history of hypertension, breast cancer, memory impairment, hypothyroidism, basal cell carcinoma of the scalp who presented [facility] ED 10/18/2024 due to some confusion on top ofher usual memory problems and she complained of some shortness of breath today. In the ED patient afebrile, heart rate 56 and blood pressure 139/69, respiratoryrate 14 and pulse ox 97% on room air. CBC with white count 8.6, hemoglobin 12.3, CMP with a BUN of 36 and a creatinine of 1.32, BUN of 36 and creatinine 1.32, glucose 104. Troponin 29, brain CT with no intracranial hemorrhage. Chest x-ray demonstrated extensive pulmonary opacities worrisome for malignancy/metastatic disease. UA obtained which was suspicious for infection. Patient given antibiotics and hospitalist contacted for admission. Patient evaluated at bedside with son present, son provided mostof the history as patient is confused and has a difficult time answering questions, she has had difficulties with her memory for 3 years however has been worse over the past 3 to 4 days and she has been increasingly very tired and fatigued recently, shortness of breath she only complained of today without cough or fever. Has some constant sinus problems but nothing new, denies chest pain or diarrhea or abdominal pain. She is unsure if she has had any urinary changes Palliative Assessment Advanced Directive - Current Admission Advance Directive: Advance Directive ON ADMISSION - REFERENCE 3 Do you have a Healthcare Yes 10/18/24 21:01 Living Will? Is a Healthcare Living Will Yes, It is scanned in 10/18/24 21:01 present in the medical record? Do you have a Healthcare Power Yes 10/18/24 21:01 of Turning Machine Operator Helper? Is a Healthcare Power of Yes, paper copy provided 10/18/24 21:01 Turning Machine Operator Helper present in the medical rec Do You Want Additional Declined 10/18/24 21:01 Information on Advanced Directives or Healthcare Proxy/DPOA comments: SON Alcides [phone]. Psychosocial/Spiritual Information Living situation/Marital status: lives alone [place]ographic location: [place] Supports: family Sikh/Swetha or spiritual preference: Gnosticist Spiritual distress: Denies Prior functional status: Patient was living independently although her son states that she was having difficulty with meal prep and bathing. Assistive devices at home: None Cultrual issues: none Information about the patient as a person: Patient enjoys spending time with family. Symptoms Palliative performance scale: 60 Palliative prognostic index: 10.0 (if the PPI is greater than 6.0, survival is less than 3 weeks.) Dyspnea symptoms: Moderate Constipation symptoms: None Anorexia symptoms: Severe Cough symptoms: Mild Insomnia symptoms: None Diarrhea symptoms: None Fatigue symptoms: Mild Weakness symptoms: Mild Confusion symptoms: Severe Side Effects & Interventions: Limited as the patient is significantly confused. Objective Data Objective Data Vital Signs: Vital Signs Temp Pulse Resp BP Pulse Ox O2 Del Method O2 Flow Rate 97.9 F 60 16 126/45 H 92 Room Air 2 10/20/24 08:11 10/20/24 08:11 10/20/24 08:11 10/20/24 08:11 10/20/24 08:11 10/20/24 10:00 10/20/24 07:17 Oxygen Flow Rate (L/min) 2 Oxygen Delivery Method Room Air Weight: 86 lb 2 oz Body Mass Index (BMI) 14.3 Intake & Output: Intake and Output for Last 24 Hours 10/18/24 10/19/24 10/20/24 23:59 23:59 23:59 Intake Total 300 / 300 1999.5 / 1999.5 240 / 240 Balance 300 / 300 1999.5 1999.5 240 / 240 Medical Nutrition Assessment Dietitian: Malnutrition Criteria Met Start: 10/19/24 13:25 Freq: Status: Active Protocol: Document 10/19/24 13:25 SLA (Rec: 10/19/24 13:25 SLA [id number]) Nutrition Malnutrition Evidence of Yes Malnutrition Exists Malnutrition (severe Chronic ): Evidenced By Suboptimal Energy Intake (Severe),Weight Loss (Severe), Physical Changes (Severe) Clinical Problem Chronic Disease or Condition Related Malnutrition Etiology related to cancer and inadequate energy intake Signs/Symptoms as evidenced by po intake meeting <75% of est nutritional needs, BMI 14.3 and fat loss/muscle wasting throughout body. Status Active Problem Recommendation Dietitian Will continue liberal regular diet as ordered Recommendations/ Will order fortified foods w/ meals as able/ magic cup Changes w/ lunch and dinner for increased nutrition if consumed Will order 4 oz ensure plus high protein 4x/day w/ medpass for increased nutrition if consumed Rec consider appetite stimulant to help encourage increased po intake of meals and ONS If po intake fails to improve, may need to consider supplemental nutrition support, if in accordance w/pt/ family wishes. Lab / Micro Data Attestation: I reviewed the patient's lab results. 10/19/24 05:46 10/19/24 05:46 Social Homelessness:: Sheltered Impressions & Recommendations Patient & Family Issues discussed with the patient and family: CODE STATUS and palliative versus hospice. Patient goal: Patient was unable to participate in meaningful conversation Family goal: Family is wanting their mother to be comfortable although they understand that they have to negotiate finances prior to transitioning to hospice. Ethical & Legal Ethical and legal: Based on the patient's cognition, all legal decisions will bedeferred to the patient's sons Alcides and Sunny. Impressions Impressions: Patient would qualify for hospice. Recommentation Palliative recommendations: Although patient would qualify for hospice, patient would most likely benefit most from palliative care at this time. Encouter Achieved as a result of this Palliative Care Encounter: [[id number], [id number], [id number] ] minutes were spent in total for this visit which consisted, primarily of counseling and education dealing with the complex and emotionally intense issues of symptommanagement and palliative care in the setting of serious and potentially life-threatening illness. Review of documentation, labs and radiological studies. ?Patient/family had the opportunity to ask questions Plan (1) Shortness of breath: PLAN: Medical management per primary team (2) LBBB (left bundle branch block): PLAN: Medical management per primary team (3) Lung mass: PLAN: Medical management per primary team (4) Palliative care encounter: PLAN: Family is agreeable to the patient transitioning to SNF with palliative care being provided by pathways. Plan is for the patient to eventually transition to hospice care. 10/20/24 1832 Cosigner Signature (if applicable): CC: Dr. Russell Shannon, DO~ Signed [facility]09-09-2025 Progress note [facility] Medical Records Department [address] [place] [address] Progress Note - Hospitalist 10/19/24 0937 MR#: [id number] Acct: [id number] Name: SHAGUFTA GUTIERREZ Rep #:[id number] : 1945 79 From: Onel dumont MD PCP: Dr. Russell Shannon, Status:ADM IN Location: [address] Subjective Subjective Continues to be a little bit altered. Unfortunately urine sample was thrown away by the lab and shehas received antibiotics so cannot obtain a urine culture, unfortunately no urine culture was sent from the ER Objective Data Objective Data Vital Signs: Vital Signs Temp Pulse Resp BP Pulse Ox O2 Del Method O2 Flow Rate 97.6 F L 67 16 160/79 H 95 Nasal Cannula 2 10/19/24 08:11 10/19/24 08:11 10/19/24 08:11 10/19/24 08:11 10/19/24 08:11 10/19/24 08:13 10/19/24 08:13 Oxygen Flow Rate (L/min) 2 Oxygen Delivery Method Nasal Cannula Weight: 86 lb 2 oz Body Mass Index (BMI) 14.3 Intake & Output: Intake and Output for Last 24 Hours 10/18/24 10/19/24 10/20/24 03:59 03:59 03:59 Intake Total 300 / 300 Balance 300 / 300 Lab / Micro Data 10/19/24 05:46 10/19/24 05:46 Labs: Laboratory Results - last 24 hr 10/18/24 17:48: WBC 8.6, RBC 4.43, Hgb 12.3, Hct 38.0, MCV 85.8, MCH 27.8, MCHC 32.4, RDW Std Deviation 47.4 H, RDW Coeff of Andrew 15.6 H, Plt Count 317, MPV 9.4,Sodium 138, Potassium 3.8, Chloride 104, Carbon Dioxide 20.3 L, Anion Gap 14, BUN 36 H, Creatinine 1.32 H, Estim Creat Clear Calc 20.08 L, Est GFR (MDRD) Non-Af 41 L, BUN/Creatinine Ratio 27.2 H, Glucose 104 H, Calcium 9.9, Total Bilirubin0.28, AST 67 H, ALT 24, Alkaline Phosphatase 100, Troponin T High Sens29 H, Total Protein 6.4, Albumin 3.2 L, Globulin 3.2, Albumin/Globulin Ratio 1.0 10/18/24 18:39: Urine Color Yellow, Urine Clarity Sl. Cloudy, Urine pH 5.0, Ur Specific Dumas 1.025, Urine Protein 30 H, Urine Glucose (UA) Normal, Urine Ketones Negative, Urine Occult Blood 50 H, Urine Nitrite Positive H, Urine Bilirubin Negative, Urine Urobilinogen Normal, Ur Leukocyte Sqyllpbw413 H, Urine RBC 0-5 SEEN, Urine WBC 5-10 SEEN, Ur Squamous Epith Cells 0-5 SEEN, UrineBacteria 3+,Urine Mucus 0 SEEN 10/18/24 19:48: Troponin T Hi Sens 2 Hr 27 H 10/19/24 00:44: Troponin T Hi Sens 4Hr 32 H 10/19/24 05:46: WBC 6.4, RBC 4.25, Hgb 11.7 L, Hct 36.3 L, MCV 85.4, MCH 27.5, MCHC 32.2, RDW Std Deviation 47.1 H, RDW Coeff of Andrew 15.7 H, Plt Count 297, MPV9.7, Immature Gran % (Auto) 0.500, Neut % (Auto) 76.0 H, Lymph % (Auto) 10.7 L, [place] % (Auto) 9.6, Eos % (Auto) 2.3, Baso % (Auto) 0.9, Absolute Neuts (auto) 4.9, Absolute Lymphs (auto) 0.69 L, Nucleated RBC % 0, Sodium 140, Potassium 3.5, Chloride 107, Carbon Dioxide 21.9, Anion Gap 11, BUN 28 H, Creatinine 1.12,Estim Creat Clear Calc 24.30 L, Est GFR (MDRD) Non-Af 49 L, BUN/Creatinine Ratio24.6 H, Glucose 90, Calcium 9.1, TSH 19.100 H Radiography Diagnostic Testing: Radiology Impression Brain CT 10/18/24 17:40 IMPRESSION: Focal soft tissue swelling and gas along the left frontal scalp to be correlatedfor soft tissue injury. No acute intracranial hemorrhage or acute calvarial fracture. - Global parenchymal volume loss and associated ex vacuo ventricular dilation. - Intracranial atherosclerosis and microvascular ischemic changes again noted. - Other findings discussed above. Reading Location: [facility] Chest X-Ray 10/18/24 17:55 IMPRESSION: Extensive pulmonary opacities, worrisome for malignancy/metastatic disease. Superimposed pneumonia can not be ruled out. Findings and recommendations discussed above. Reading Location: [facility] Physical Exam Narrative General: Alert, Oriented x1-2, Cooperative, No apparent distress HEENT: Atraumatic, PERRLA, EOMI, Normocephalic Oral: Moist Mucosa Neck: Supple, No JVD Lungs: Diminished, Normal air movement, No rhonchi, No wheeze, No rales Cardiovascular: Regular rate, Regular Rhythm, Normal S1, Normal S2, No murmurs Abdomen: Soft, Non Tender, Non-Distended, No Hepato-splenomegaly Extremities: No edema, Capillary Refill Less than 3 Seconds Skin: Multiple skin lesions, 1 on her scalp consistent with a basal cell carcinoma Musculoskeletal: No Tenderness to Palpation of Joints or Extremities Neurological: No focal neurological deficits, moves all extremities Psych/Mental Status: Normal Affect, Appropriate Assessment & Plan Assessment/Plan (1) UTI (urinary tract infection): PLAN: Plan 1. Acute metabolic encephalopathy secondary to UTI in the setting of chronic dementia ? Urine analysis looks very positive for UTI however no urine culture was sent ? Ordered urine culture today however the laboratory has already thrown out the urine sample from admission ? She is already received multiple doses of antibiotics so at this point urine culture would be useless from a new sample ? Continue with Rocephin and azithromycin, there was concern for possibility of pneumonia given theproductive cough ? Continue with her home medications for her dementia 2. Basal cell carcinoma as well as breast cancer ? Underwent palliative radiation last year for her breast cancer ? At the time she had a fungating mass on the right breast that was reduced in size ? She does have suspicious findings on her chest x-ray consistent with her breast cancer given her dementia will discuss with family if they would like to proceed with further investigation ? They had not elected in February to observe her breast cancer and forego any new treatments 3. Hypothyroidism ? Stable ? Continue with Synthroid 4. Essential hypertension ? Can restart losartan tomorrow ? Renal functions back to baseline 5. Anxiety/depression ? Stable ? Continue with her home medications DVT: SCDs Charges/Coding Visit Charges Inpatient E&M: 56399 Subs Hosp L2 10/19/24 0948 Cosigner Signature (if applicable): CC: ~ Signed ADDENDUM by Dr. Onel Tenorio MD on 10/20/24 at 1754 Addendum 25-minute discussion with the son at bedside about care planning options given her cancer and dementia in terms of the differences between palliative care and hospice care. We also discussed CODE STATUS and he was open to making her a DNRif necessary however he wanted to find her living will paperwork at home prior to making any decision. Procedures Hospitalists Procedures: 26522 Advncd Care Plan 30 Min 10/20/24 175 Cosigner Signature (if applicable): cc: ~* Signed [facility]09-09-2025 Consult note Author Bouchra Bledsoe [facility] Note Date/Time October 20, 2024 11:39am [facility] Medical Records Department [address] [place] [address] Counseling Note - Pharmacy 10/20/24 1137 MR#: [id number] Acct: [id number] Name: SHAGUFTA GUTIERREZ Rep #:[id number] : 1945 79 From: Bouchra Bledsoe PCP: Dr. Russell Shannon, DO Status:ADM IN Y Location: AL3 XL556-9 Pharmacy [place] Med Reconciliation Pharmacy Service has performed discharge medication reconciliation for this patient. Attempted to community health counselor. Patient's call light was on when I walked to the room. Patient saw me and asked if i could help her. When this [facility] asked what wasgoing on she said she didn't know what she should be doing and she was very confused. This [facility] notified patient's nurse who said this is normal for the patient and she has been confused throughout her hospitalization. Did not community health counselor. The patient's discharge medication list was reviewed for discrepancies and discrepancies were resolved. Medications at Discharge Home Medications levothyroxine 100 mcg tablet 50 mcg PO DAILY 03/07/21 losartan 25 mg tablet 100 mg PO QHS 03/07/21 levothyroxine 50 mcg capsule 100 mcg PO IGNACIO 03/10/21 propranolol 60 mg capsule,24 hr,extended release 60 mg PO QHS 03/10/21 vitamin B12 500 mcg-folic acid 400 mcg tablet 1 tab PO DAILY 03/10/21 donepezil 10 mg tablet 10 mg PO DAILY 09/17/23 memantine 5 mg tablet 5 mg PO BID 09/17/23 levothyroxine 75 mcg tablet 75 mcg PO DAILY 10/18/24 losartan 100 mg tablet 100 mg PO DAILY 10/18/24 sertraline 50 mg tablet 50 mg PO DAILY 10/18/24 azithromycin 500 mg tablet 500 mg PO DAILY 2 days #2 tabs 10/20/24 cefdinir 300 mg capsule 300 mg PO BID #10 caps 10/20/24 10/20/24 1139 <Electronically signed by Bouchra Bledsoe> Date _ Bouchra Bledsoe Cosigner Signature (if applicable): Date CC: ~ Signed [facility] Work Phone: 1(278) 889-963109-09-2025 Consult note [facility] Medical Records Department [address] [place] [address] Counseling Note - Pharmacy 10/20/24 1137 MR#: [id number] Acct: [id number] Name: SHAGUFTA GUTIERREZ Rep #:[id number] : 1945 79 From: Bouchra Bledsoe PCP: Dr. Russell Shannon, DO Status:ADM IN Y Location: [place]3 [id number] Pharmacy [place] Med Reconciliation Pharmacy Service has performed discharge medication reconciliation for this patient. Attempted to community health counselor. Patient's call light was on when I walked to the room. Patient saw me and asked if i could help her. When this [facility] asked what wasgoing on she said she didn't know what she should be doing and she was very confused. This h notified patient's nurse who said this is normal for the patientand she has been confused throughout her hospitalization. Did not community health counselor. The patient's discharge medication list was reviewed for discrepancies and discrepancies were resolved. Medications at Discharge Home Medications levothyroxine 100 mcg tablet 50 mcg PO DAILY 03/07/21 losartan 25 mg tablet 100 mg PO QHS 03/07/21 levothyroxine 50 mcg capsule 100 mcg PO IGNACIO 03/10/21 propranolol 60 mg capsule,24 hr,extended release 60 mg PO QHS 03/10/21 vitamin B12 500 mcg-folic acid 400 mcg tablet 1 tab PO DAILY 03/10/21 donepezil 10 mg tablet 10 mg PO DAILY 09/17/23 memantine 5 mg tablet 5 mg PO BID 09/17/23 levothyroxine 75 mcg tablet 75 mcg PO DAILY 10/18/24 losartan 100 mg tablet 100 mg PO DAILY 10/18/24 sertraline 50 mg tablet 50 mg PO DAILY 10/18/24 azithromycin 500 mg tablet 500 mg PO DAILY 2 days #2 tabs 10/20/24 cefdinir 300 mg capsule 300 mg PO BID #10 caps 10/20/24 10/20/24 1139 Date _ Bouchra Pisano Signature (if applicable): Date CC: ~ Signed [facility]09-09-2025 Discharge summary Author Onel Tenorio [facility] Note Date/Time October 20, 2024 9:38am [facility] Medical Records Department [address] [place] [address] Instructions for Home/Discharge Instructions 10/20/24933 MR#: [id number] Acct: [id number] Name: SHAGUFTA GUTIERREZ Rep #:[id number] : 1945 79 From: Onel dumont MD PCP: Dr. Russell Shannon DO Status:ADM IN Discharge Instructions DC O2, CPAP, BIPAP needs Home O2 Discharge instructions: No Dressing / Incision Discharge Activity: Return to Normal Activity Dressing / Incision Call your doctor if you observe: Fever of 101 or Higher, Shortness of breath, Dizziness, Fainting spells, Swelling in the ankles, Chest pain and Increased palpitations (irregular heartbeat) Follow Up Care Test Results: Test results from this visit will be discussed in further detail at your follow- up appointment, if applicable. Discharge Plan Admission Admit Date/Time: 10/18/24 20:30 Attending Provider: Onel Tenorio Primary Care Provider: Russell Shannon Consulting Providers: Oksana Fortune Instructions Additional Instructions / Restrictions: Follow-up with your primary care doctor to monitor your kidney function Discharge Orders/Prescriptions Prescriptions: New cefdinir 300 mg capsule 300 mg PO BID Qty: 10 0RF azithromycin 500 mg tablet 500 mg PO DAILY 2 Days Qty: 2 0RF Continued memantine 5 mg tablet 5 mg PO BID donepezil 10 mg tablet 10 mg PO DAILY levothyroxine 100 mcg tablet 50 mcg PO DAILY Patient Comments: thyroid medication Rx Instructions: Take 2 Doses on Saturday losartan 25 mg tablet 100 mg PO QHS Patient Comments: blood pressure levothyroxine 50 mcg Capsule 100 mcg PO IGNACIO vitamin W27-egvbf acid 500-400 mcg Tablet 1 tab PO DAILY propranolol 60 MG capsule,extended release 24 hr 60 mg PO QHS Patient Comments: heart/blood pressure levothyroxine 75 mcg tablet 75 mcg PO DAILY losartan 100 mg tablet 100 mg PO DAILY sertraline 50 mg tablet 50 mg PO DAILY Referrals / Follow Up: Russell Shannon DO [Primary Care Provider] - Within 1 Week Disposition Disposition (needs filled in before D/C Order can be placed): Home, Self Care 10/20/24 0938<Electronically signed by Onel Tenorio MD>Onel Tenorio MD CC: Dr. Russell Shannon, ; Dr. Oksana Fortune MD ~ Signed [facility] Work Phone: 1(817) 497-684109-09-2025 Progress note Author Onel Tenorio [facility] Note Date/Time October 20, 2024 9:13am [facility] Medical Records Department [address] [facility] [place] [address] Progress Note - Hospitalist 10/20/24 0844 MR#: [id number] Acct: [id number] Name: SHAGUFTA GUTIERREZ Rep #:[id number] : 1945 79 From: Onel dumont MD PCP: Dr. Russell Shannon DO Status:ADM IN Location: [facility] PU430-1 Subjective Subjective Doing well, no issues overnight Objective Data Objective Data Vital Signs: Vital Signs Temp Pulse Resp BP Pulse Ox O2 Del Method O2 Flow Rate 97.9 F 60 16 126/45 H 92 Room Air 2 10/20/24 08:11 10/20/24 08:11 10/20/24 08:11 10/20/24 08:11 10/20/24 08:11 10/20/24 08:11 10/20/24 07:17 Oxygen Flow Rate (L/min) 2 Oxygen Delivery Method Room Air Weight: 86 lb 2 oz Body Mass Index (BMI) 14.3 Intake & Output: Intake and Output for Last 24 Hours 10/19/24 10/20/24 10/21/24 03:59 03:59 03:59 Intake Total 300 / 300 1999.1999.5 Balance 300 / 300 1999.1999. Medical Nutrition Assessment Dietitian: Malnutrition Criteria Met Start: 10/19/24 13:25 Freq: Status: Active Protocol: Document 10/19/24 13:25 SLA (Rec: 10/19/24 13:25 SLA [id number]) Nutrition Malnutrition Evidence of Yes Malnutrition Exists Malnutrition (severe Chronic ): Evidenced By Suboptimal Energy Intake (Severe),Weight Loss (Severe), Physical Changes (Severe) Clinical Problem Chronic Disease or Condition Related Malnutrition Etiology related to cancer and inadequate energy intake Signs/Symptoms as evidenced by po intake meeting <75% of est nutritional needs, BMI 14.3 and fat loss/muscle wasting throughout body. Status Active Problem Recommendation Dietitian Will continue liberal regular diet as ordered Recommendations/ Will order fortified foods w/ meals as able/ magic cup Changes w/ lunch and dinner for increased nutrition if consumed Will order 4 oz ensure plus high protein 4x/day w/ medpass for increased nutrition if consumed Rec consider appetite stimulant to help encourage increased po intake of meals and ONS If po intake fails to improve, may need to consider supplemental nutrition support, if in accordance w/pt/ family wishes. Lab / Micro Data 10/19/24 05:46 10/19/24 05:46 Physical Exam Narrative General: Alert, Oriented x1-2, Cooperative, No apparent distress HEENT: Atraumatic, PERRLA, EOMI, Normocephalic Oral: Moist Mucosa Neck: Supple, No JVD Lungs: Diminished, Normal air movement, No rhonchi, No wheeze, No rales Cardiovascular: Regular rate, Regular Rhythm, Normal S1, Normal S2, No murmurs Abdomen: Soft, Non Tender, Non-Distended, No Hepato-splenomegaly Extremities: No edema, Capillary Refill Less than 3 Seconds Skin: Multiple skin lesions, 1 on her scalp consistent with a basal cell carcinoma Musculoskeletal: No Tenderness to Palpation of Joints or Extremities Neurological: No focal neurological deficits, moves all extremities Psych/Mental Status: Normal Affect, Appropriate Assessment & Plan Assessment/Plan (1) UTI (urinary tract infection): PLAN: Plan 1. Acute metabolic encephalopathy secondary to UTI in the setting of chronic dementia ? Urine analysis looks very positive for UTI however no urine culture was sent and cannot be sent because the original sample was disposed of by lab ? Continue with Rocephin and azithromycin, there was concern for possibility of pneumonia given the productive cough ? Continue with her home medications for her dementia 2. Basal cell carcinoma as well as breast cancer ? Underwent palliative radiation last year for her breast cancer ? At the time she had a fungating mass on the right breast that was reduced in size ? She does have suspicious findings on her chest x-ray consistent with her breast cancer given her dementia will discuss with family if they would like to proceed with further investigation ? They had elected in February to observe her breast cancer and forego any new treatments 3. Hypothyroidism ? Stable ? Continue with Synthroid 4. Essential hypertension ? Can restart losartan tomorrow ? Renal functions back to baseline 5. Anxiety/depression ? Stable ? Continue with her home medications DVT: SCDs Charges/Coding Visit Charges Inpatient E&M: 41382 Subs Hosp L2 10/20/24912 <Electronically signed by Onel Tenorio MD> Cosigner Signature (if applicable): CC: ~ Signed [facility] Work Phone: 1(981) 199-204409-09-2025 Discharge summary [facility] Medical Records Department [address] [place] [address] Instructions for Home/Discharge Instructions 10/20/24933 MR#: [id number] Acct: [id number] Name: SHAGUFTA GUTIERREZ Rep #:[id number] : 1945 79 From: Onel dumont MD PCP: Dr. Russell Shannon, DO Status:ADM IN Discharge Instructions DC O2, CPAP, BIPAP needs Home O2 Discharge instructions: No Dressing / Incision Discharge Activity: Return to Normal Activity Dressing / Incision Call your doctor if you observe: Fever of 101 or Higher, Shortness of breath, Dizziness, Fainting spells, Swelling in the ankles, Chest pain and Increased palpitations (irregular heartbeat) Follow Up Care Test Results: Test results from this visit will be discussed in further detail at your follow- up appointment, if applicable. Discharge Plan Admission Admit Date/Time: 10/18/24 20:30 Attending Provider: Onel Tenorio Primary Care Provider: Russell Shannon Consulting Providers: Oksana Fortune Instructions Additional Instructions / Restrictions: Follow-up with your primary care doctor to monitor your kidney function Discharge Orders/Prescriptions Prescriptions: New cefdinir 300 mg capsule 300 mg PO BID Qty: 10 0RF azithromycin 500 mg tablet 500 mg PO DAILY 2 Days Qty: 2 0RF Continued memantine 5 mg tablet 5 mg PO BID donepezil 10 mg tablet 10 mg PO DAILY levothyroxine 100 mcg tablet 50 mcg PO DAILY Patient Comments: thyroid medication Rx Instructions: Take 2 Doses on Saturday losartan 25 mg tablet 100 mg PO QHS Patient Comments: blood pressure levothyroxine 50 mcg Capsule 100 mcg PO IGNACIO vitamin A51-bqdvv acid 500-400 mcg Tablet 1 tab PO DAILY propranolol 60 MG capsule,extended release 24 hr 60 mg PO QHS Patient Comments: heart/blood pressure levothyroxine 75 mcg tablet 75 mcg PO DAILY losartan 100 mg tablet 100 mg PO DAILY sertraline 50 mg tablet 50 mg PO DAILY Referrals / Follow Up: Russell Shannon DO [Primary Care Provider] - Within 1 Week Disposition Disposition (needs filled in before D/C Order can be placed): Home, Self Care 10/20/24 0938Onel Tenorio MD CC: Dr. Russell Shannon DO; Dr. Oksana Fortune MD ~ Signed [facility]09-09-2025 Progress note [facility] Medical Records Department [address] [place] [address] Progress Note - Hospitalist 10/20/24 0844 MR#: [id number] Acct: [id number] Name: SHAGUFTA GUTIERREZ Rep #:[id number] : 1945 79 From: Onel dumont MD PCP: Dr. Russell Shannon DO Status:ADM IN Location: [place] [address]-1 Subjective Subjective Doing well, no issues overnight Objective Data Objective Data Vital Signs: Vital Signs Temp Pulse Resp BP Pulse Ox O2 Del Method O2 Flow Rate 97.9 F 60 16 126/45 H 92 Room Air 2 10/20/24 08:11 10/20/24 08:11 10/20/24 08:11 10/20/24 08:11 10/20/24 08:11 10/20/24 08:11 10/20/24 07:17 Oxygen Flow Rate (L/min) 2 Oxygen Delivery Method Room Air Weight: 86 lb 2 oz Body Mass Index (BMI) 14.3 Intake & Output: Intake and Output for Last 24 Hours 10/19/24 10/20/24 10/21/24 03:59 03:59 03:59 Intake Total 300 / 300 1999.1999.5 Balance 300 / 300 1999.5 Medical Nutrition Assessment Dietitian: Malnutrition Criteria Met Start: 10/19/24 13:25 Freq: Status: Active Protocol: Document 10/19/24 13:25 JUAN JOSE (Rec: 10/19/24 13:25 SLA [id number]) Nutrition Malnutrition Evidence of Yes Malnutrition Exists Malnutrition (severe Chronic ): Evidenced By Suboptimal Energy Intake (Severe),Weight Loss (Severe), Physical Changes (Severe) Clinical Problem Chronic Disease or Condition Related Malnutrition Etiology related to cancer and inadequate energy intake Signs/Symptoms as evidenced by po intake meeting <75% of est nutritional needs, BMI 14.3 and fat loss/muscle wasting throughout body. Status Active Problem Recommendation Dietitian Will continue liberal regular diet as ordered Recommendations/ Will order fortified foods w/ meals as able/ magic cup Changes w/ lunch and dinner for increased nutrition if consumed Will order 4 oz ensure plus high protein 4x/day w/ medpass for increased nutrition if consumed Rec consider appetite stimulant to help encourage increased po intake of meals and ONS If po intake fails to improve, may need to consider supplemental nutrition support, if in accordance w/pt/ family wishes. Lab / Micro Data 10/19/24 05:46 10/19/24 05:46 Physical Exam Narrative General: Alert, Oriented x1-2, Cooperative, No apparent distress HEENT: Atraumatic, PERRLA, EOMI, Normocephalic Oral: Moist Mucosa Neck: Supple, No JVD Lungs: Diminished, Normal air movement, No rhonchi, No wheeze, No rales Cardiovascular: Regular rate, Regular Rhythm, Normal S1, Normal S2, No murmurs Abdomen: Soft, Non Tender, Non-Distended, No Hepato-splenomegaly Extremities: No edema, Capillary Refill Less than 3 Seconds Skin: Multiple skin lesions, 1 on her scalp consistent with a basal cell carcinoma Musculoskeletal: No Tenderness to Palpation of Joints or Extremities Neurological: No focal neurological deficits, moves all extremities Psych/Mental Status: Normal Affect, Appropriate Assessment & Plan Assessment/Plan (1) UTI (urinary tract infection): PLAN: Plan 1. Acute metabolic encephalopathy secondary to UTI in the setting of chronic dementia ? Urine analysis looks very positive for UTI however no urine culture was sent and cannot be sent because the original sample was disposed of by lab ? Continue with Rocephin and azithromycin, there was concern for possibility of pneumonia given theproductive cough ? Continue with her home medications for her dementia 2. Basal cell carcinoma as well as breast cancer ? Underwent palliative radiation last year for her breast cancer ? At the time she had a fungating mass on the right breast that was reduced in size ? She does have suspicious findings on her chest x-ray consistent with her breast cancer given her dementia will discuss with family if they would like to proceed with further investigation ? They had elected in February to observe her breast cancer and forego any new treatments 3. Hypothyroidism ? Stable ? Continue with Synthroid 4. Essential hypertension ? Can restart losartan tomorrow ? Renal functions back to baseline 5. Anxiety/depression ? Stable ? Continue with her home medications DVT: SCDs Charges/Coding Visit Charges Inpatient E&M: 58302 Subs Hosp L2 10/20/24 0913 Cosigner Signature (if applicable): CC: ~ Signed [facility]09-07-2025 Discharge summary Author Vincent Brumfield [facility] Note Date/Time October 18, 2024 9:14pm [facility] Medical Records Department [address] [place] [address] Emergency Department Summary 10/18/24 MR#: [id number] Acct: [id number] Name: SHAGUFTA GUTIERREZ Rep #:[id number] : 1945 79 From: Vincent Bucio PCP: Dr. Russell Shannon, DO Status:ADM IN Location: [place] [address] HPI History of Present Illness Chief Complaint: Confusion [facility] Medical History Basal cell carcinoma of scalp Wears glasses Cancer Forgetfulness Anxiety Thyroid disease Arthritis Difficulty swallowing Former smoker Hypertension History of echocardiogram History of stress test Former smoker Neoplasm of skin of scalp Home Medications ?Medication ?Instructions ?Recorded ?Last Taken ?Type levothyroxine 100 mcg tablet 50 mcg PO DAILY 03/07/21 03/13/21 History losartan 25 mg tablet 100 mg PO QHS 03/07/21 Unkno wn History levothyroxine 50 mcg capsule 100 mcg PO IGNACIO 03/10/21 Un known History propranolol 60 mg capsule,24 60 mg PO QHS 03/10/21 Unk nown History hr,extended release vitamin B12 500 mcg-folic acid 400 1 tab PO DAILY 02/12 10/02 Unknown History mcg tablet donepezil 10 mg tablet 10 mg PO DAILY 09/17/23 Unkn own History memantine 5 mg tablet 5 mg PO BID 09/17/23 Unknown History levothyroxine 75 mcg tablet 75 mcg PO DAILY 10/18/24 U nknown History losartan 100 mg tablet 100 mg PO DAILY 10/18/24 Unk nown History sertraline 50 mg tablet 50 mg PO DAILY 10/18/24 Unkn own History Allergy/AdvReac Type Severity Reaction Status Date / Time codeine Allergy Other Verified 10/18/24 17:16 simvastatin Allergy Other Verified 10/18/24 17:16 Family History Mother Hypertension CVA (cerebral vascular accident) Other No pertinent family history Surgical History History of basal cell carcinoma excision History of local excision of skin lesion History of cystoscopy Hx of submandibular gland removal Hx of tubal ligation Hx of total thyroidectomy History of thyroid surgery Social History (Updated 10/18/24 @ 17:40 by Bernadette Ponce) housing: house Smoking Status: Former smoker alcohol intake: current alcohol intake frequency: holidays/special occasions only details: 1 glass of wine substance use type: does not use additional social history: Does Not Take Aspirin Does Not Take Ibuprofen EXAM Physical Exam Const Vital Signs: 10/18/24 17:16 10/18/24 17:40 10/18/24 18:45 Temperature 97.8 F 98.6 F 98.7 F Temperature Source Oral Oral Temporal Pulse Rate 56 L 58 L 62 Respiratory Rate 14 20 H 18 Blood Pressure 139/69 H 132/80 H 128/88 H Blood Pressure Mean 92 97 101 Pulse Ox 97 99 100 Oxygen Delivery Method Room Air Room Air 10/18/24 19:23 10/18/24 20:00 Temperature 97.9 F 97.9 F Temperature Source Oral Pulse Rate 52 L 51 L Respiratory Rate 16 18 Blood Pressure 176/44 H 147/58 H Blood Pressure Mean 88 87 Pulse Ox 92 92 Oxygen Delivery Method Room Air [facility] MDM Narrative Medical decision making narrative: HISTORY OF PRESENT ILLNESS: Chief complaint: Confusion 79-year-old F history of hypertension, former smoker, hypothyroidism, breast cancer, rheumatoid arthritis presents with concern for worsening confusion. Perthe patient's son the patient had increased confusion. He notes previous memoryissues however they are worsening. Son states she complained of shortness of breath today. No report of falls or chest pain. REVIEW OF SYSTEMS: Pertinent positives: Confusion, shortness of breath Pertinent negatives: As per HPI PHYSICAL EXAM: Nursing triage notes reviewed, Vital signs reviewed Constitutional: please see mdm HENT: MMM, no nasal cell carcinoma lesion to the forehead Eyes: Pupils equal round and reactive to [...] no tenderness, rigidity, rebound or guarding, no obviousperitoneal signs, no palpable pulsatile abdominal masses, no auscultated abdominal bruit : No CVAT Extremities: No edema Neuro: Alert but not oriented to person or place or time cranial nerves II through XII intact, 5/5 strength in all present extremities. Intact sensation tolight touch in all present extremities, 2+ reflexes bilateral patella tendons. Skin: No rash or lesions noted MEDICAL DECISION MAKING: Chief Complaint: please see HPI External records reviewed: Reviewed CT scan of the brain from 2023 which showed no acute intracranial abnormality. Baseline mental status is alert and orientedto person and place but not time per prior ED note. Factors affecting care: As per HPI Social determinants of health: n elderly History obtained from others: Patient's Consults: internal medicine (Dr. Fortune) MDM Narrative: The patient was initially hemodynamically stable, afebrile and nontoxic- appearing. Exam without focal deficits. Baseline mental status I considered the following differential diagnosis: ICH, infectious cephalopathy,anemia, electro disturbance, acute kidney injury I obtained broad lab and imaging to further determine if the patient was suffering from a life-threatening etiology. I treated the patient while in the ED with ceftriaxone azithromycin to treat pneumonia and possible UTI ALL IMAGES (IF OBTAINED) HAVE BEEN PERSONALLY REVIEWED AND INTERPRETED BY MYSELF. CBC with no leukocytosis, no anemia or thrombocytopenia BMP without significant electrolyte abnormalities, mild back acidosis with no endorgan hypoperfusion, no significant hepatobiliary abnormalities High-sensitivity troponin is negative, no evidence of myocardial ischemia Urinalysis consistent with UTI Chest x-ray was read and reviewed personally so showed multifocal lesions that could be consistent with pneumonia. Radiologist noted could be consistent with metastatic disease versus pneumonia Given patient's confusion, multiple focus of infection including pneumonia and UTI patient be admitted for further evaluation and treatment. The patient and/or family, caregivers express understanding. The patient and/orfamily, caregivers agrees with the plan. Shared decision making: I will have a discussion with the patient and or visitors regarding risk/benefits of further testing or admission. They will be made aware of of the risk/benefits inherent in this decision they will be given the opportunity to voice understanding. Total critical care time today provided was at least 0 minutes. This excludes separately billable procedures. Critical care time (if documented) is secondary to the patient having high probability of clinically significant/life threatening deterioration in the patient's condition which required my urgent intervention. Impression: 1. UTI 2. Altered mental status 3. Metastatic cancer Dispo: Admit to floor This note was generated with [employer] dictation software. It may contain incorrectwords, spelling, and punctuation that were not noted in review of the chart prior to signing. Lab Data Labs: Laboratory Results - last 24 hr 10/18/24 10/18/24 10/18/24 17:48 18:39 19:48 WBC 8.6 RBC 4.43 Hgb 12.3 Hct 38.0 MCV 85.8 MCH 27.8 MCHC 32.4 RDW Std Deviation 47.4 H RDW Coeff of Andrew 15.6 H Plt Count 317 MPV 9.4 Sodium 138 Potassium 3.8 Chloride 104 Carbon Dioxide 20.3 L Anion Gap 14 BUN 36 H Creatinine 1.32 H Estim Creat Clear Calc 20.08 L Est GFR (MDRD) Non-Af 41 L BUN/Creatinine Ratio 27.2 H Glucose 104 H Calcium 9.9 Total Bilirubin 0.28 AST 67 H ALT 24 Alkaline Phosphatase 100 Troponin T High Sens 29 H Troponin T Hi Sens 2 Hr 27 H Total Protein 6.4 Albumin 3.2 L Globulin 3.2 Albumin/Globulin Ratio 1.0 Urine Color Yellow Urine Clarity Sl. Cloudy Urine pH 5.0 Ur Specific Dumas 1.025 Urine Protein 30 H Urine Glucose (UA) Normal Urine Ketones Negative Urine Occult Blood 50 H Urine Nitrite Positive H Urine Bilirubin Negative Urine Urobilinogen Normal Ur Leukocyte Esterase 500 H Urine RBC 0-5 SEEN Urine WBC 5-10 SEEN Ur Squamous Epith Cells 0-5 SEEN Urine Bacteria 3+ Urine Mucus 0 SEEN Radiography Diagnostic Testing: Clinical Impression(s) from Imaging Studies Brain CT 10/18/24 17:40 IMPRESSION: Focal soft tissue swelling and gas along the left frontal scalp to be correlatedfor soft tissue injury. No acute intracranial hemorrhage or acute calvarial fracture. - Global parenchymal volume loss and associated ex vacuo ventricular dilation. - Intracranial atherosclerosis and microvascular ischemic changes again noted. - Other findings discussed above. Reading Location: [facility] Chest X-Ray 10/18/24 17:55 IMPRESSION: Extensive pulmonary opacities, worrisome for malignancy/metastatic disease. Superimposed pneumonia can not be ruled out. Findings and recommendations discussed above. Reading Location: [facility] Discharge Plan Disposition Disposition: Acute Care Hospital [facility] Discharge Date/Time: 10/18/24 20:45 What to do if you have Problems For any increased pain, shortness of breath, bleeding, nausea or vomiting, chestpain, or any unexpected problems, contact your Primary Care Provider. Call [facility] ([phone]) or report to the closest Emergency Room. Call 911 if necessary. 10/18/242113 <Electronically signed by Vincent Brumfield DO> Cosigner Signature (if applicable): CC: Dr. Russell Shannon, ~ Signed [facility] Work Phone: 1(177) 331-989809-07-2025 History and physical note Author Oksana Fortune [facility] Note Date/Time October 18, 2024 8:42pm [facility] Medical Records Department [address] [place] [id number] H&P Exam - Hospitalist 10/18/242029 MR#: [id number] Acct: [id number] Name: SHAGUFTA GUTIERREZ Rep #:[id number] : 1945 79 From: Oksana Fortune MD PCP: Dr. Russell Shannon, Status:ADM IN Location: [facility] [id number] HPI - General General Date of Admission: 10/18/24 Date of Service: 10/18/24 Chief Complaint: AMS HPI Narrative SHAGUFTA GUTIERREZ, is a 79-year-old female history of hypertension, breast cancer, memory impairment, hypothyroidism, basal cell carcinoma of the scalp who presented [facility] ED 10/18/2024 due to some confusion on top ofher usual memory problems and she complained of some shortness of breath today. In the ED patient afebrile, heart rate 56 and blood pressure 139/69, respiratoryrate 14 and pulse ox 97% on room air. CBC with white count 8.6, hemoglobin 12.3, CMP with a BUN of 36 and a creatinine of 1.32, BUN of 36 and creatinine 1.32, glucose 104. Troponin 29, brain CT with no intracranial hemorrhage. Chest x-ray demonstrated extensive pulmonary opacities worrisome for malignancy/metastatic disease. UA obtained which was suspicious for infection. Patient given antibiotics and hospitalist contacted for admission. Patient evaluated at bedside with son present, son provided most of the history as patient is confused and has a difficult time answering questions, she has had difficulties with her memory for 3 years however has been worse over the past 3 to 4 days and she has been increasingly very tired and fatigued recently, shortness of breath she only complained of today without cough or fever. Has some constant sinus problems but nothing new, denies chest pain or diarrhea or abdominal pain. She is unsure if she has had any urinary changes [facility] Medical History Basal cell carcinoma of scalp Wears glasses Cancer Forgetfulness Anxiety Thyroid disease Arthritis Difficulty swallowing Former smoker Hypertension History of echocardiogram History of stress test Former smoker Neoplasm of skin of scalp Home Medications ?Medication ?Instructions ?Recorded ?Last Taken ?Type levothyroxine 100 mcg tablet 50 mcg PO DAILY 03/07/21 03/13/21 History losartan 25 mg tablet 100 mg PO QHS 03/07/21 Unkno wn History levothyroxine 50 mcg capsule 100 mcg PO IGNACIO 03/10/21 Un known History propranolol 60 mg capsule,24 60 mg PO QHS 03/10/21 Unk nown History hr,extended release vitamin B12 500 mcg-folic acid 400 1 tab PO DAILY 02/12 10/02 Unknown History mcg tablet donepezil 10 mg tablet 10 mg PO DAILY 09/17/23 Unkn own History memantine 5 mg tablet 5 mg PO BID 09/17/23 Unknown History levothyroxine 75 mcg tablet 75 mcg PO DAILY 10/18/24 U nknown History losartan 100 mg tablet 100 mg PO DAILY 10/18/24 Unk nown History sertraline 50 mg tablet 50 mg PO DAILY 10/18/24 Unkn own History Allergy/AdvReac Type Severity Reaction Status Date / Time codeine Allergy Other Verified 10/18/24 17:16 simvastatin Allergy Other Verified 10/18/24 17:16 Family History Mother Hypertension CVA (cerebral vascular accident) Other No pertinent family history Surgical History History of basal cell carcinoma excision History of local excision of skin lesion History of cystoscopy Hx of submandibular gland removal Hx of tubal ligation Hx of total thyroidectomy History of thyroid surgery Social History (Updated 10/18/24 @ 17:40 by Bernadette Ponce) housing: house Smoking Status: Former smoker alcohol intake: current alcohol intake frequency: holidays/special occasions only details: 1 glass of wine substance use type: does not use additional social history: Does Not Take Aspirin Does Not Take Ibuprofen ROS ROS Narrative General: Denies fever/chills HENT: Denies headache, some problems with nasal congestion EYES: Denies changes in vision Resp: Denies cough, increased shortness of breath today Cardiac: Denies chest pain GI: Denies abdominal pain, denies changes in bowel, denies nausea/vomiting : Unsure if she has had changes in urination Extremity: Denies swelling MSK: Feels generally weak and tired Neuro: Denies any numbness/tingling Skin: Has basal cell on forehead Psychiatric: Patient reports she feels lost Vital Signs Vital Signs Vital Signs: 10/18/24 17:16 10/18/24 17:40 10/18/24 18:45 Temperature 97.8 F 98.6 F 98.7 F Temperature Source Oral Oral Temporal Pulse Rate 56 L 58 L 62 Respiratory Rate 14 20 H 18 Blood Pressure 139/69 H 132/80 H 128/88 H Blood Pressure Mean 92 97 101 Pulse Ox 97 99 100 Oxygen Delivery Method Room Air Room Air 10/18/24 19:23 10/18/24 20:00 Temperature 97.9 F 97.9 F Temperature Source Oral Pulse Rate 52 L 51 L Respiratory Rate 16 18 Blood Pressure 176/44 H 147/58 H Blood Pressure Mean 88 87 Pulse Ox 92 92 Oxygen Delivery Method Room Air Weight Weight: 38.056 kg Body Mass Index (BMI) 13.9 Physical Exam Narrative General: Alert, confused, difficulty answering questions HEENT: Atraumatic, does have an obvious basal cell carcinoma on forehead Eyes: Anicteric, normal conjunctiva, extraocular movements grossly intact Neck: Supple Respiratory: Diminished bilaterally, poor inspiratory effort Cardiovascular: Regular rate and rhythm GI: Soft, nontender, nondistended Extremities: No edema Musculoskeletal: Moving all extremities Neuro: No overt focal neurological deficits Skin: An obvious basal cell carcinoma on her left side of her forehead Psych: Cooperative Results Lab / Micro Data 10/18/24 17:48 10/18/24 17:48 Labs: Laboratory Results - last 24 hr 10/18/24 17:48: WBC 8.6, RBC 4.43, Hgb 12.3, Hct 38.0, MCV 85.8, MCH 27.8, MCHC 32.4, RDW Std Deviation 47.4 H, RDW Coeff of Andrew 15.6 H, Plt Count 317, MPV 9.4,Sodium 138, Potassium 3.8, Chloride 104, Carbon Dioxide 20.3 L, Anion Gap 14, BUN 36 H, Creatinine 1.32 H, Estim Creat Clear Calc 20.08 L, Est GFR (MDRD) Non-Af 41 L, BUN/Creatinine Ratio 27.2 H, Glucose 104 H, Calcium 9.9, Total Bilirubin 0.28, AST 67 H, ALT 24, Alkaline Phosphatase 100, Troponin T High Sens29 H, Total Protein 6.4, Albumin 3.2 L, Globulin 3.2, Albumin/Globulin Ratio 1.0 10/18/24 18:39: Urine Color Yellow, Urine Clarity Sl. Cloudy, Urine pH 5.0, Ur Specific Dumas 1.025, Urine Protein 30 H, Urine Glucose (UA) Normal, Urine Ketones Negative, Urine Occult Blood 50 H, Urine Nitrite Positive H, Urine Bilirubin Negative, Urine Urobilinogen Normal, Ur Leukocyte Esterase 500 H, Urine RBC 0-5 SEEN, Urine WBC 5-10 SEEN, Ur Squamous Epith Cells 0-5 SEEN, UrineBacteria 3+, Urine Mucus 0 SEEN Imaging Radiology Impression Brain CT 10/18/24 17:40 IMPRESSION: Focal soft tissue swelling and gas along the left frontal scalp to be correlatedfor soft tissue injury. No acute intracranial hemorrhage or acute calvarial fracture. - Global parenchymal volume loss and associated ex vacuo ventricular dilation. - Intracranial atherosclerosis and microvascular ischemic changes again noted. - Other findings discussed above. Reading Location: [facility] Chest X-Ray 10/18/24 17:55 IMPRESSION: Extensive pulmonary opacities, worrisome for malignancy/metastatic disease. Superimposed pneumonia can not be ruled out. Findings and recommendations discussed above. Reading Location: [facility] Assessment & Plan Assessment/Plan (1) UTI (urinary tract infection): PLAN: Plan # Acute metabolic encephalopathy suspect secondary to urinary tract infection ontop of chronic dementia -UA suspicious for infection -Will treat empirically with IV antibiotics while waiting further culture and sensitivity data # Abnormal chest x-ray -Patient does have history of basal cell carcinoma and breast cancer, she underwent palliative radiation last year for breast cancer -Suspect that this is metastatic in nature but a CT with contrast would be able to better characterize chest findings -Kidney function is up from baseline, suspect due to patient's poor p.o. intake -Gentle IVF and will schedule CT chest/abdomen/pelvis with contrast for the a.m.once patient hydrated -Patient without productive cough or elevated white count, lower suspicion for asuperimposed pneumonia however cannot rule it out based on current imaging, willalready be on Rocephin, will add azithromycin until further imaging -I/s - Albuterol as needed #Hypothyroidism -Continue Synthroid #Hypertension - Hold home losartan with kidney function, can likely add back on discharge -Continue propranolol -prn Hydralazine # History of breast cancer and basal cell carcinoma -Completed palliative radiation to the right breast 10/17/2023 -She is to follow-up as needed on an outpatient basis with radiation oncology -Last saw oncology in the office 10/01/[address] Bolaños at that time # Dementia - Supportive care -Continue home memantine and donepezil #Depression/anxiety -Continue home medications #DVT ppx: SCDs Oksana Fortune MD CODE status: Discussed CODE status at length including difference between FULL code, DNR-CCA, and DNR-CC status. Following discussions about the differences inthese status, requested full code. This will need to be revisited after furtherimaging and clinical status, suspect patient and son may end up being amenable to alternative discussions and CODE STATUS but patient reporting she wants to befull code and son agrees with her wishes at this time, again suspect that this can be discussed further moving forward Charges/Coding Visit Charges Inpatient E&M: 28505 Init Hosp L2 10/18/242041 <Electronically signed by Oksana Fortune MD> Cosigner Signature (if applicable): CC: Dr. Russell Shannon, DO; Dr. Oksana Fortune MD~ Signed [facility] Work Phone: 1(961) 324-316009-07-2025 Evaluation note* Diagnosis Onset Date Resolution Status Admit Date LBBB (left bundle branch block) acute October 18, 025 8:30pm Lung mass acute October 18, 2024 8:30pm Palliative care encounter acute October 18, 2024 8:30pm Shortness of breath acute Septe mb2024 8:30pm UTI (urinary tract infection) acute October 18, 2024 8:30pm [facility] Work Phone: 1(539) 692-688709-07-2025 Discharge summary [facility] Medical Records Department [address] [place] [address] Emergency Department Summary 10/18/24 MR#: [id number] Acct: [id number] Name: SHAGUFTA GUTIERREZ Rep #:[id number] : 1945 79 From: Vincent Bucio PCP: Dr. Russell Shannon DO Status:ADM IN Location: [place] [address] HPI History of Present Illness Chief Complaint: Confusion PFSH PFS Medical History Basal cell carcinoma of scalp Wears glasses Cancer Forgetfulness Anxiety Thyroid disease Arthritis Difficulty swallowing Former smoker Hypertension History of echocardiogram History of stress test Former smoker Neoplasm of skin of scalp Home Medications ?Medication ?Instructions ?Recorded ?Last Taken ?Type levothyroxine 100 mcg tablet 50 mcg PO DAILY 03/07/21 03/13/21 History losartan 25 mg tablet 100 mg PO QHS 03/07/21 Unkno wn History levothyroxine 50 mcg capsule 100 mcg PO IGNACIO 03/10/21 Un known History propranolol 60 mg capsule,24 60 mg PO QHS 03/10/21 Unk nown History hr,extended release vitamin B12 500 mcg-folic acid 400 1 tab PO DAILY 02/12 10/02 Unknown History mcg tablet donepezil 10 mg tablet 10 mg PO DAILY 09/17/23 Unkn own History memantine 5 mg tablet 5 mg PO BID 09/17/23 Unknown History levothyroxine 75 mcg tablet 75 mcg PO DAILY 10/18/24 U nknown History losartan 100 mg tablet 100 mg PO DAILY 10/18/24 Unk nown History sertraline 50 mg tablet 50 mg PO DAILY 10/18/24 Unkn own History Allergy/AdvReac Type Severity Reaction Status Date / Time codeine Allergy Other Verified 10/18/24 17:16 simvastatin Allergy Other Verified 10/18/24 17:16 Family History Mother Hypertension CVA (cerebral vascular accident) Other No pertinent family history Surgical History History of basal cell carcinoma excision History of local excision of skin lesion History of cystoscopy Hx of submandibular gland removal Hx of tubal ligation Hx of total thyroidectomy History of thyroid surgery Social History (Updated 10/18/24 @ 17:40 by Bernadette Ponce) housing: house Smoking Status: Former smoker alcohol intake: current alcohol intake frequency: holidays/special occasions only details: 1 glass of wine substance use type: does not use additional social history: Does Not Take Aspirin Does Not Take Ibuprofen EXAM Physical Exam Const Vital Signs: 10/18/24 17:16 10/18/24 17:40 10/18/24 18:45 Temperature 97.8 F 98.6 F 98.7 F Temperature Source Oral Oral Temporal Pulse Rate 56 L 58 L 62 Respiratory Rate 14 20 H 18 Blood Pressure 139/69 H 132/80 H 128/88 H Blood Pressure Mean 92 97 101 Pulse Ox 97 99 100 Oxygen Delivery Method Room Air Room Air 10/18/24 19:23 10/18/24 20:00 Temperature 97.9 F 97.9 F Temperature Source Oral Pulse Rate 52 L 51 L Respiratory Rate 16 18 Blood Pressure 176/44 H 147/58 H Blood Pressure Mean 88 87 Pulse Ox 92 92 Oxygen Delivery Method Room Air MDM MDM MDM Narrative Medical decision making narrative: HISTORY OF PRESENT ILLNESS: Chief complaint: Confusion 79-year-old F history of hypertension, former smoker, hypothyroidism, breast cancer, rheumatoid arthritis presents with concern for worsening confusion. Perthe patient's son the patient had increasedconfusion. He notes previous memoryissues however they are worsening. Son states she complained of shortness of breath today. No report of falls or chest pain. REVIEW OF SYSTEMS: Pertinent positives: Confusion, shortness of breath Pertinent negatives: As per HPI PHYSICAL EXAM: Nursing triage notes reviewed, Vital signs reviewed Constitutional: please see mdm HENT: MMM, no nasal cell carcinoma lesion to the forehead Eyes: Pupils equal round and reactive to [...] no tenderness, rigidity, rebound or guarding, no obviousperitoneal signs, no palpable pulsatile abdominal masses, no auscultated abdominal bruit : No CVAT Extremities: No edema Neuro: Alert but not oriented to person or place or time cranial nerves II through XII intact, 5/5 strength in all present extremities. Intact sensation tolight touch in all present extremities, 2+ reflexes bilateral patella tendons. Skin: No rash or lesions noted MEDICAL DECISION MAKING: Chief Complaint: please see HPI External records reviewed: Reviewed CT scan of the brain from 2023 which showed no acute intracranial abnormality. Baseline mental status is alert and orientedto person and place but not time per prior ED note. Factors affecting care: As per HPI Social determinants of health: n elderly History obtained from others: Patient's Consults: internal medicine (Dr. Fortune) [facility] Narrative: The patient was initially hemodynamically stable, afebrile and nontoxic- appearing. Exam without focal deficits. Baseline mental status I considered the following differential diagnosis: ICH, infectious cephalopathy,anemia, electro disturbance, acute kidney injury I obtained broad lab and imaging to further determine if the patient was suffering from a life-threatening etiology. I treated the patient while in the ED with ceftriaxone azithromycin to treat pneumonia and possibleUTI ALL IMAGES (IF OBTAINED) HAVE BEEN PERSONALLY REVIEWED AND INTERPRETED BY MYSELF. CBC with no leukocytosis, no anemia or thrombocytopenia BMP without significant electrolyte abnormalities, mild back acidosis with no endorgan hypoperfusion, no significant hepatobiliary abnormalities High-sensitivity troponin is negative, no evidence of myocardial ischemia Urinalysis consistent with UTI Chest x-ray was read and reviewed personally so showed multifocal lesions that could be consistent with pneumonia. Radiologist noted could be consistent with metastatic disease versus pneumonia Given patient's confusion, multiple focus of infection including pneumonia and UTI patient be admitted for further evaluation and treatment. The patient and/or family, caregivers express understanding. The patient and/orfamily, caregivers agrees with the plan. Shared decision making: I will have a discussion with the patient and or visitors regarding risk/benefits of further testing or admission. They will be made aware of of the risk/benefits inherent in this decision they will be given the opportunity to voice understanding. Total critical care time today provided was at least 0 minutes. This excludes separately billable procedures. Critical care time (if documented) is secondary to the patient having high probability ofclinically significant/life threatening deterioration in the patient's condition which required my urgent intervention. Impression: 1. UTI 2. Altered mental status 3. Metastatic cancer Dispo: Admit to floor This note was generated with [employer] dictation software. It may contain incorrectwords, spelling, and punctuation that were not noted in review of the chart prior to signing. Lab Data Labs: Laboratory Results - last 24 hr 10/18/24 10/18/24 10/18/24 17:48 18:39 19:48 WBC 8.6 RBC 4.43 Hgb 12.3 Hct 38.0 MCV 85.8 MCH 27.8 MCHC 32.4 RDW Std Deviation 47.4 H RDW Coeff of Andrew 15.6 H Plt Count 317 MPV 9.4 Sodium 138 Potassium 3.8 Chloride 104 Carbon Dioxide 20.3 L Anion Gap 14 BUN 36 H Creatinine 1.32 H Estim Creat Clear Calc 20.08 L Est GFR (MDRD) Non-Af 41 L BUN/Creatinine Ratio 27.2 H Glucose 104 H Calcium 9.9 Total Bilirubin 0.28 AST 67 H ALT 24 Alkaline Phosphatase 100 Troponin T High Sens 29 H Troponin T Hi Sens 2 Hr 27 H Total Protein 6.4 Albumin 3.2 L Globulin 3.2 Albumin/Globulin Ratio 1.0 Urine Color Yellow Urine Clarity Sl. Cloudy Urine pH 5.0 Ur Specific Dumas 1.025 Urine Protein 30 H Urine Glucose (UA) Normal Urine Ketones Negative Urine Occult Blood 50 H Urine Nitrite Positive H Urine Bilirubin Negative Urine Urobilinogen Normal Ur Leukocyte Esterase 500 H Urine RBC 0-5 SEEN Urine WBC 5-10 SEEN Ur Squamous Epith Cells 0-5 SEEN Urine Bacteria 3+ Urine Mucus 0 SEEN Radiography Diagnostic Testing: Clinical Impression(s) from Imaging Studies Brain CT 10/18/24 17:40 IMPRESSION: Focal soft tissue swelling and gas along the left frontal scalp to be correlatedfor soft tissue injury. No acute intracranial hemorrhage or acute calvarial fracture. - Global parenchymal volume loss and associated ex vacuo ventricular dilation. - Intracranial atherosclerosis and microvascular ischemic changes again noted. - Other findings discussed above. Reading Location: [facility] Chest X-Ray 10/18/24 17:55 IMPRESSION: Extensive pulmonary opacities, worrisome for malignancy/metastatic disease. Superimposed pneumonia can not be ruled out. Findings and recommendations discussed above. Reading Location: [facility] Discharge Plan Disposition Disposition: Acute Care Hospital [facility] Discharge Date/Time: 10/18/24 20:45 What to do if you have Problems For any increased pain, shortness of breath, bleeding, nausea or vomiting, chestpain, or any unexpected problems, contact your Primary Care Provider. Call [facility] ([phone]) or report tot closest Emergency Room. Call 911 if necessary. 10/18/242113 Cosigner Signature (if applicable): CC: Dr. Russell Shannon, ~ Signed [facility]09-07-2025 History and physical note [facility] Medical Records Department [address] [place] [address] H&P Exam - Hospitalist 10/18/242029 MR#: [id number] Acct: [id number] Name: SHAGUFTA GUTIERREZ Rep #:[id number] : 1945 79 From: Oksana Fortune MD PCP: Dr. Russell Shannon DO Status:ADM IN Location: AL3 [id number] HPI - General General Date of Admission: 10/18/24 Date of Service: 10/18/24 Chief Complaint: AMS HPI Narrative SHAGUFTA GUTIERREZ, is a 79-year-old female history of hypertension, breast cancer, memory impairment, hypothyroidism, basal cell carcinoma of the scalp who presented [facility] ED 10/18/2024 due to some confusion on top ofher usual memory problems and she complained of some shortness of breath today. In the ED patient afebrile, heart rate 56 and blood pressure 139/69, respiratoryrate 14and pulse ox 97% on room air. CBC with white count 8.6, hemoglobin 12.3, CMP with a BUN of 36 and acreatinine of 1.32, BUN of 36 and creatinine 1.32, glucose 104. Troponin 29, brain CT with no intracranial hemorrhage. Chest x-ray demonstrated extensive pulmonary opacities worrisome for malignancy/metastatic disease. UA obtained which was suspicious for infection. Patient given antibiotics and hospitalist contacted for admission. Patient evaluated at bedside with son present, son provided most of the history as patient is confused and has a difficult time answering questions, she has had difficulties with her memory for 3 years however has been worse over the past 3 to 4 days and she has been increasingly very tired and fatigued recently, shortness of breath she only complained of today without cough or fever. Has some constant sinus problems but nothing new, denies chest pain or diarrhea or abdominal pain. She is unsure if she has had any urinary changes [facility] Medical History Basal cell carcinoma of scalp Wears glasses Cancer Forgetfulness Anxiety Thyroid disease Arthritis Difficulty swallowing Former smoker Hypertension History of echocardiogram History of stress test Former smoker Neoplasm of skin of scalp Home Medications ?Medication ?Instructions ?Recorded ?Last Taken ?Type levothyroxine 100 mcg tablet 50 mcg PO DAILY 03/07/21 03/13/21 History losartan 25 mg tablet 100 mg PO QHS 03/07/21 Unkno wn History levothyroxine 50 mcg capsule 100 mcg PO IGNACIO 03/10/21 Un known History propranolol 60 mg capsule,24 60 mg PO QHS 03/10/21 Unk nown History hr,extended release vitamin B12 500 mcg-folic acid 400 1 tab PO DAILY 02/12 10/02 Unknown History mcg tablet donepezil 10 mg tablet 10 mg PO DAILY 09/17/23 Unkn own History memantine 5 mg tablet 5 mg PO BID 09/17/23 Unknown History levothyroxine 75 mcg tablet 75 mcg PO DAILY 10/18/24 U nknown History losartan 100 mg tablet 100 mg PO DAILY 10/18/24 Unk nown History sertraline 50 mg tablet 50 mg PO DAILY 10/18/24 Unkn own History Allergy/AdvReac Type Severity Reaction Status Date / Time codeine Allergy Other Verified 10/18/24 17:16 simvastatin Allergy Other Verified 10/18/24 17:16 Family History Mother Hypertension CVA (cerebral vascular accident) Other No pertinent family history Surgical History History of basal cell carcinoma excision History of local excision of skin lesion History of cystoscopy Hx of submandibular gland removal Hx of tubal ligation Hx of total thyroidectomy History of thyroid surgery Social History (Updated 10/18/24 @ 17:40 by Bernadette Ponce) housing: house Smoking Status: Former smoker alcohol intake: current alcohol intake frequency: holidays/special occasions only details: 1 glass of wine substance use type: does not use additional social history: Does Not Take Aspirin Does Not Take Ibuprofen ROS ROS Narrative General: Denies fever/chills HENT: Denies headache, some problems with nasal congestion EYES: Denies changes in vision Resp: Denies cough, increased shortness of breath today Cardiac: Denies chest pain GI: Denies abdominal pain, denies changes in bowel, denies nausea/vomiting : Unsure if she has had changes in urination Extremity: Denies swelling MSK: Feels generally weak and tired Neuro: Denies any numbness/tingling Skin: Has basal cell on forehead Psychiatric: Patient reports she feels lost Vital Signs Vital Signs Vital Signs: 10/18/24 17:16 10/18/24 17:40 10/18/24 18:45 Temperature 97.8 F 98.6 F 98.7 F Temperature Source Oral Oral Temporal Pulse Rate 56 L 58 L 62 Respiratory Rate 14 20 H 18 Blood Pressure 139/69 H 132/80 H 128/88 H Blood Pressure Mean 92 97 101 Pulse Ox 97 99 100 Oxygen Delivery Method Room Air Room Air 10/18/24 19:23 10/18/24 20:00 Temperature 97.9 F 97.9 F Temperature Source Oral Pulse Rate 52 L 51 L Respiratory Rate 16 18 Blood Pressure 176/44 H 147/58 H Blood Pressure Mean 88 87 Pulse Ox 92 92 Oxygen Delivery Method Room Air Weight Weight: 38.056 kg Body Mass Index (BMI) 13.9 Physical Exam Narrative General: Alert, confused, difficulty answering questions HEENT: Atraumatic, does have an obvious basal cell carcinoma on forehead Eyes: Anicteric, normal conjunctiva, extraocular movements grossly intact Neck: Supple Respiratory: Diminished bilaterally, poor inspiratory effort Cardiovascular: Regular rate and rhythm GI: Soft, nontender, nondistended Extremities: No edema Musculoskeletal: Moving all extremities Neuro: No overt focal neurological deficits Skin: An obvious basal cell carcinoma on her left side of her forehead Psych: Cooperative Results Lab / Micro Data 10/18/24 17:48 10/18/24 17:48 Labs: Laboratory Results - last 24 hr 10/18/24 17:48: WBC 8.6, RBC 4.43, Hgb 12.3, Hct 38.0, MCV 85.8, MCH 27.8, MCHC 32.4, RDW Std Deviation 47.4 H, RDW Coeff of Andrew 15.6 H, Plt Count 317, MPV 9.4,Sodium 138, Potassium 3.8, Chloride 104, Carbon Dioxide 20.3 L, Anion Gap 14, BUN 36 H, Creatinine 1.32 H, Estim Creat Clear Calc 20.08 L, Est GFR (MDRD) Non-Af 41 L, BUN/Creatinine Ratio 27.2 H, Glucose 104 H, Calcium 9.9, Total Bilirubin0.28, AST 67 H, ALT 24, Alkaline Phosphatase 100, Troponin T High Sens29 H, Total Protein 6.4, Albumin 3.2 L, Globulin 3.2, Albumin/Globulin Ratio 1.0 10/18/24 18:39: Urine Color Yellow, Urine Clarity Sl. Cloudy, Urine pH 5.0, Ur Specific Dumas 1.025, Urine Protein 30 H, Urine Glucose (UA) Normal, Urine Ketones Negative, Urine Occult Blood 50 H, Urine Nitrite Positive H, Urine Bilirubin Negative, Urine Urobilinogen Normal, Ur Leukocyte [id number] H, Urine RBC 0-5 SEEN, Urine WBC 5-10 SEEN, Ur Squamous Epith Cells 0-5 SEEN, UrineBacteria 3+,Urine Mucus 0 SEEN Imaging Radiology Impression Brain CT 10/18/24 17:40 IMPRESSION: Focal soft tissue swelling and gas along the left frontal scalp to be correlatedfor soft tissue injury. No acute intracranial hemorrhage or acute calvarial fracture. - Global parenchymal volume loss and associated ex vacuo ventricular dilation. - Intracranial atherosclerosis and microvascular ischemic changes again noted. - Other findings discussed above. Reading Location: [facility] Chest X-Ray 10/18/24 17:55 IMPRESSION: Extensive pulmonary opacities, worrisome for malignancy/metastatic disease. Superimposed pneumonia can not be ruled out. Findings and recommendations discussed above. Reading Location: [facility] Assessment & Plan Assessment/Plan (1) UTI (urinary tract infection): PLAN: Plan # Acute metabolic encephalopathy suspect secondary to urinary tract infection ontop of chronic dementia -UA suspicious for infection -Will treat empirically with IV antibiotics while waiting further culture and sensitivity data # Abnormal chest x-ray -Patient does have history of basal cell carcinoma and breast cancer, she underwent palliative radiation last year for breast cancer -Suspect that this is metastatic in nature but a CT with contrast would be able to better characterize chest findings -Kidney function is up from baseline, suspect due to patient's poor p.o. intake -Gentle IVF and will schedule CT chest/abdomen/pelvis with contrast for the a.m.once patient hydrated -Patient without productive cough or elevated white count, lower suspicion for asuperimposed pneumonia however cannot rule it out based on current imaging, willalready be on Rocephin, will add azithromycin until further imaging -I/s - Albuterol as needed #Hypothyroidism -Continue Synthroid #Hypertension - Hold home losartan with kidney function, can likely add back on discharge -Continue propranolol -prn Hydralazine # History of breast cancer and basal cell carcinoma -Completed palliative radiation to the right breast 10/17/2023 -She is to follow-up as needed on an outpatient basis with radiation oncology -Last saw oncology in the office 10/01/[address] Bolaños at that time # Dementia - Supportive care -Continue home memantine and donepezil #Depression/anxiety -Continue home medications #DVT ppx: SCDs Oksana Fortune MD CODE status: Discussed CODE status at length including difference between FULL code, DNR-CCA, and DNR-CC status. Following discussions about the differences inthese status, requested full code. This will need to be revisited after furtherimaging and clinical status, suspect patient and son may end up being amenable to alternative discussions and CODE STATUS but patient reporting she wants to befull code and son agrees with her wishes at this time, again suspect that this can be discussed further moving forward Charges/Coding Visit Charges Inpatient E&M: 20322 Init Hosp L2 10/18/242041 Cosigner Signature (if applicable): CC: Dr. Russell Shannon DO; Dr. Oksana Fortune MD~ Signed [facility]09-07-2025 Radiology Diagnostic study note [facility] Imaging Services [address] [place] [address] Chest 1 View (Portable) MR#: [id number] Acct: [id number] Name: SHAGUFTA GUTIERREZ Rep #: [id number] : 1945 F 79 From: Lynn Brower MD PCP: Dr. Russell Shannon DO Status: REG ER Study:Chest 1 View (Portable) Date of Exam: 10/18/24 Exam# [id number] Ordering Dr: Malina Brumfield DO PROCEDURE: CHEST 1 VIEW (PORTABLE) 10/18/2024 REASON FOR EXAM: CONFUSION TECHNIQUE: Frontal view of the chest. COMPARISON: Chest x-ray December 31, 2023 FINDINGS: Lungs: There is dense opacity at the right lung base which may be due to a combination of elevation of theright hemidiaphragm, pleural fluid, atelectasis, infiltrate/pneumonia and/or parenchymal/pleural mass. Clinical correlation is advised. Right lung volume is low. Left lung volume is pronounced. Soft tissue masses are seen overlying both demetrius thoraces, the largest single lesion measuring over 5 cm in diameter. These may represent parenchymal masses or pleural-based masses. Malignancy/metastatic disease is favored. Correlation with clinical history would be helpful. For complete evaluation consider chest CT with contrast if not already done. Pleura: Bilateral pleural effusions can not be ruled out. Biapical pleural thickening. No pneumothorax is seen. Mediastinum: There is no mediastinal widening or mediastinal shift. Heart: The cardiac silhouette is not enlarged. Vascular: Calcified aortic atherosclerosis. Jerome: The pulmonary jerome are not enlarged or retracted. Osseous: No acute fracture is seen. Degenerative changes of the spine. RAD/Chest 1 View (Portable) IMPRESSION: Extensive pulmonary opacities, worrisome for malignancy/metastatic disease. Superimposed pneumonia can not be ruled out. Findings and recommendations discussed above. Reading Location: [id number] CC: Dr. Russell Shannon DO; Dr. Vincent Brumfield DO ~ Patient Accounts Manager: Signed [facility]09-07-2025 Radiology Diagnostic study note [facility] Imaging Services [address] [place] [address] Brain/Head without Contrast MR#: [id number] Acct: [id number] Name: SHAGUFTA GUTIERREZ Rep #: [id number] : 1945 F 79 From: Lynn Brower MD PCP: Dr. Russell Shannon DO Status: REG ER Study:Brain/Head without Contrast Date of Exa m: 10/18/24 Exam# [id number] Ordering Dr: Malina Brumfield DO PROCEDURE: BRAIN/HEAD WITHOUT CONTRAST 10/18/2024 REASON FOR EXAM: CONFUSION TECHNIQUE: Procedure Code: CTBR Modality: CT Procedure: BRAIN/HEAD WITHOUT CONTRAST Coronal and Sagittal reconstruction series were provided. One or more dose reduction techniques were used (e.g., Automated exposure control, adjustment of the mA and/or kV according to patient size, use of iterative reconstruction technique. RADIATION DOSE SUMMARY: CTDlvol: 44.99 mGy DLP: 762.36 mGycm COMPARISON: Head CT December 31, 2023 FINDINGS: Note: Images through the base of the brain and posterior fossa including the brainstemare slightly degraded by beam hardening artifact from the adjacent calvarium. Brain: There is no evidence of acute intracranial hemorrhage. Note is made that some parenchymal contusions may not be visible immediately. Consider follow-up imaging as clinically indicated. There is moderate to severe global parenchymal volume loss. No focal extra-axial fluid collection is seen. Appearance of the basal cisterns is unremarkable. There is no posterior fossa Chiari malformation. There is no midline shift or herniation. No evidence of pneumocephalus. Incidental intracranial calcifications noted. There is intracranial calcific atherosclerosis. Mild periventricular and deep white matter attenuation changes again noted consistent with chronic microvascular ischemic change and gliosis. No parenchymal changes are seen suggestive of cytotoxic edema to indicate an acute territorial vascular infarct. Note is made that CT changes may lag clinical findings an acute stroke. If indicated, consider follow-up imaging or diffusion-weighted MRI. Ventricles: The ventricles are distended, however similar to the prior exam and commensuratewith degree of parenchymal volume loss consistent with ex vacuo dilation. The ventricles do not appear obstructed. Pituitary: The pituitary fossa does not appear enlarged. The pituitary stalk does not appear deviated. Soft tissues: There is focal soft tissue swelling and soft tissue gas along the anterior left frontal scalp consistent with hemorrhagic subgaleal soft tissue contusion or penetrating injury. Osseous: No acute calvarial fracture. No suspicious bone lesion. Visualized paranasal sinuses: Mild mucosal thickening within a few ethmoid air cells. No fluid in the paranasal sinuses. Mastoids: No fluid or opacification of mastoid air cells. Middle ear cavities: The visualized middle ear cavities are not opacified. There is soft tissue debris within the external auditory canals to be correlateddirectly with clinical exam. CT/Brain/Head without Contrast IMPRESSION: Focal soft tissue swelling and gas along the left frontal scalp to be correlatedfor soft tissue injury. No acute intracranial hemorrhage or acute calvarial fracture. - Global parenchymal volume loss and associated ex vacuo ventricular dilation. - Intracranial atherosclerosis and microvascular ischemic changes again noted. - Other findings discussed above. Reading Location: [id number] CC: Dr. Russell Shannon DO; Dr. Vincent Brumfield DO ~ Patient Accounts Manager: Signed [facility]08-12-2024 Telephone encounter Note* Telephone Encounter - Zahira Najera - 09/23/2023 10:24 AM EDT I tried calling patient and son back to discuss the below but I was unable to reach then . I will try again later Zahira Lee [facility]08-12-2024 Miscellaneous Notes* Telephone Encounter - Zahira Najera - 09/23/2023 10:24 AM EDT I tried calling patient and son back to discuss the below but I was unable to reach then . I will try again later Zahira Lee * Telephone Encounter - Rosalina De La Cruz LPN - 09/23/2023 8:52 AM EDT Again, patient is only scheduled with Dr. Law (radiation oncology), I verified in their system.She will need to see medical oncology as stated below. Rosalina De La Cruz LPN * Telephone Encounter - Shell Chavez - 09/23/2023 8:38 AM EDT The son Alcides called back to cancel as patient is being seen at [facility] but does not know provider name. * Telephone Encounter - Madelyn Valdez - 09/23/2023 8:35 AM EDT Spoke to patient and scheduled as directed. Madelyn Valdez * Telephone Encounter - Shaista Johns - 09/20/2023 8:39 AM EDT Left message for patient to return call. When she calls, please offer to scheduel with Dr. Baxter/Asmita as she will still need to see Medical Oncology. (Patient will be doing Rad/Onc at [facility]). Shaista Johns * Telephone Encounter - Rosalina De La Cruz LPN - 09/19/2023 5:00 PM EDT PSS- patient will still need an appointment with medical oncology. Please contact patient to make sure she is aware and offer her a new patient appointment here if she is not already set up with medical oncology at [facility]. Rosalina De La Cruz LPN * Telephone Encounter - Danika Ford LPN - 09/17/2023 3:36 PM EDT Olesya from DR. Mcconnell office contacted us stating Pt. Is going to Follow up with Dr. Law @ [facility]. Danika Ford LPN * Telephone Encounter - Danika Ford LPN - 09/16/2023 2:42 PM EDT New pt. Referral from Dr. Shannon, Right [...] voicemail Danika Ford LPN [facility] Telephone encounter Note * Telephone Encounter - Rosalina De La Cruz LPN - 09/23/2023 8:52 AM EDT Again, patient is only scheduled with Dr. Law (radiation oncology), I verified in their system.She will need to see medical oncology as stated below. Rosalina De La Cruz LPN [facility]08-12-2024 Telephone encounter Note* Telephone Encounter - Shell Chavez - 09/23/2023 8:38 AM EDT The son Alcides called back to cancel as patient is being seen at [facility] but does not know provider name. [facility]08-12-2024 Telephone encounter Note* Telephone Encounter - Madelyn Valdez - 09/23/2023 8:35 AM EDT Spoke to patient and scheduled as directed. Madelyn Valdez [facility]08-09-2024 Telephone encounter Note* Telephone Encounter - Shaista Johns - 09/20/2023 8:39 AM EDT Left message for patient to return call. When she calls, please offer to scheduel with Dr. Baxter/Asmita as she will still need to see Medical Oncology. (Patient will be doing Rad/Onc at [facility]). Shaista Johns [facility]08-08-2024 Telephone encounter Note* Telephone Encounter - Rosalina De La Cruz LPN - 09/19/2023 5:00 PM EDT PSS- patient will still need an appointment with medical oncology. Please contact patient to make sure she is aware and offer her a new patient appointment here if she is not already set up with medical oncology at [facility]. Rosalina De La Cruz LPN [facility]08-06-2024 Telephone encounter Note* Telephone Encounter - Danika Ford LPN - 09/17/2023 3:36 PM EDT Olesya from DR. Mcconnell office contacted us stating Pt. Is going to Follow up with Dr. Law @ [facility]. Danika Ford LPN [facility]08-05-2024 Telephone encounter Note* Telephone Encounter - Danika Ford LPN - 09/16/2023 2:42 PM EDT New pt. Referral from Dr. Shannon, Right Breast with open bleeding lesion in 8o'clock position entire breast hard to touch with multiple raised lesions covering it. Left message on voicemail at [facility] needing to know if and when pt is scheduled for Biopsy or surgery. Pt. Scheduled to see Dr. Cook tomorrow 09/16 , they are planning on doing BX, Olesya office nurse will call again tomorrow with future plans. Also left message on pts. voicemail [facility] - [place]Evaluation noteNo assessment information availableWWilson Street Hospital Work Phone: Evaluation note* Diagnosis Onset Date Resolution Status Admit Date UTI (urinary tract infection) acute October 18, 2024 8:30pm [facility] Work Phone: History and physical note Author Oksana Fortune [facility] Note Date/Time October 18, 2024 8:42pm [facility] Medical Records Department [address] [place] [id number] H&P Exam - Hospitalist 10/18/242029 MR#: [id number] Acct: [id number] Name: SHAGUFTA GUTIERREZ Rep #:[id number] : 1945 79 From: Oksana Fortune MD PCP: Dr. Russell Shannon, DO Status:ADM IN Location: [facility] [id number] HPI - General General Date of Admission: 10/18/24 Date of Service: 10/18/24 Chief Complaint: AMS HPI Narrative SHAGUFTA GUTIERREZ, is a 79-year-old female history of hypertension, breast cancer, memory impairment, hypothyroidism, basal cell carcinoma of the scalp who presented [facility] ED 10/18/2024 due to some confusion on top ofher usual memory problems and she complained of some shortness of breath today. In the ED patient afebrile, heart rate 56 and blood pressure 139/69, respiratoryrate 14 and pulse ox 97% on room air. CBC with white count 8.6, hemoglobin 12.3, CMP with a BUN of 36 and a creatinine of 1.32, BUN of 36 and creatinine 1.32, glucose 104. Troponin 29, brain CT with no intracranial hemorrhage. Chest x-ray demonstrated extensive pulmonary opacities worrisome for malignancy/metastatic disease. UA obtained which was suspicious for infection. Patient given antibiotics and hospitalist contacted for admission. Patient evaluated at bedside with son present, son provided most of the history as patient is confused and has a difficult time answering questions, she has had difficulties with her memory for 3 years however has been worse over the past 3 to 4 days and she has been increasingly very tired and fatigued recently, shortness of breath she only complained of today without cough or fever. Has some constant sinus problems but nothing new, denies chest pain or diarrhea or abdominal pain. She is unsure if she has had any urinary changes [facility] Medical History Basal cell carcinoma of scalp Wears glasses Cancer Forgetfulness Anxiety Thyroid disease Arthritis Difficulty swallowing Former smoker Hypertension History of echocardiogram History of stress test Former smoker Neoplasm of skin of scalp Home Medications ?Medication ?Instructions ?Recorded ?Last Taken ?Type levothyroxine 100 mcg tablet 50 mcg PO DAILY 03/07/21 03/13/21 History losartan 25 mg tablet 100 mg PO QHS 03/07/21 Unkno wn History levothyroxine 50 mcg capsule 100 mcg PO IGNACIO 03/10/21 Un known History propranolol 60 mg capsule,24 60 mg PO QHS 03/10/21 Unk nown History hr,extended release vitamin B12 500 mcg-folic acid 400 1 tab PO DAILY 02/12 10/02 Unknown History mcg tablet donepezil 10 mg tablet 10 mg PO DAILY 09/17/23 Unkn own History memantine 5 mg tablet 5 mg PO BID 09/17/23 Unknown History levothyroxine 75 mcg tablet 75 mcg PO DAILY 10/18/24 U nknown History losartan 100 mg tablet 100 mg PO DAILY 10/18/24 Unk nown History sertraline 50 mg tablet 50 mg PO DAILY 10/18/24 Unkn own History Allergy/AdvReac Type Severity Reaction Status Date / Time codeine Allergy Other Verified 10/18/24 17:16 simvastatin Allergy Other Verified 10/18/24 17:16 Family History Mother Hypertension CVA (cerebral vascular accident) Other No pertinent family history Surgical History History of basal cell carcinoma excision History of local excision of skin lesion History of cystoscopy Hx of submandibular gland removal Hx of tubal ligation Hx of total thyroidectomy History of thyroid surgery Social History (Updated 10/18/24 @ 17:40 by Bernadette Ponce) housing: house Smoking Status: Former smoker alcohol intake: current alcohol intake frequency: holidays/special occasions only details: 1 glass of wine substance use type: does not use additional social history: Does Not Take Aspirin Does Not Take Ibuprofen ROS ROS Narrative General: Denies fever/chills HENT: Denies headache, some problems with nasal congestion EYES: Denies changes in vision Resp: Denies cough, increased shortness of breath today Cardiac: Denies chest pain GI: Denies abdominal pain, denies changes in bowel, denies nausea/vomiting : Unsure if she has had changes in urination Extremity: Denies swelling MSK: Feels generally weak and tired Neuro: Denies any numbness/tingling Skin: Has basal cell on forehead Psychiatric: Patient reports she feels lost Vital Signs Vital Signs Vital Signs: 10/18/24 17:16 10/18/24 17:40 10/18/24 18:45 Temperature 97.8 F 98.6 F 98.7 F Temperature Source Oral Oral Temporal Pulse Rate 56 L 58 L 62 Respiratory Rate 14 20 H 18 Blood Pressure 139/69 H 132/80 H 128/88 H Blood Pressure Mean 92 97 101 Pulse Ox 97 99 100 Oxygen Delivery Method Room Air Room Air 10/18/24 19:23 10/18/24 20:00 Temperature 97.9 F 97.9 F Temperature Source Oral Pulse Rate 52 L 51 L Respiratory Rate 16 18 Blood Pressure 176/44 H 147/58 H Blood Pressure Mean 88 87 Pulse Ox 92 92 Oxygen Delivery Method Room Air Weight Weight: 38.056 kg Body Mass Index (BMI) 13.9 Physical Exam Narrative General: Alert, confused, difficulty answering questions HEENT: Atraumatic, does have an obvious basal cell carcinoma on forehead Eyes: Anicteric, normal conjunctiva, extraocular movements grossly intact Neck: Supple Respiratory: Diminished bilaterally, poor inspiratory effort Cardiovascular: Regular rate and rhythm GI: Soft, nontender, nondistended Extremities: No edema Musculoskeletal: Moving all extremities Neuro: No overt focal neurological deficits Skin: An obvious basal cell carcinoma on her left side of her forehead Psych: Cooperative Results Lab / Micro Data 10/18/24 17:48 10/18/24 17:48 Labs: Laboratory Results - last 24 hr 10/18/24 17:48: WBC 8.6, RBC 4.43, Hgb 12.3, Hct 38.0, MCV 85.8, MCH 27.8, MCHC 32.4, RDW Std Deviation 47.4 H, RDW Coeff of Andrew 15.6 H, Plt Count 317, MPV 9.4,Sodium 138, Potassium 3.8, Chloride 104, Carbon Dioxide 20.3 L, Anion Gap 14, BUN 36 H, Creatinine 1.32 H, Estim Creat Clear Calc 20.08 L, Est GFR (MDRD) Non-Af 41 L, BUN/Creatinine Ratio 27.2 H, Glucose 104 H, Calcium 9.9, Total Bilirubin 0.28, AST 67 H, ALT 24, Alkaline Phosphatase 100, Troponin T High Sens29 H, Total Protein 6.4, Albumin 3.2 L, Globulin 3.2, Albumin/Globulin Ratio 1.0 10/18/24 18:39: Urine Color Yellow, Urine Clarity Sl. Cloudy, Urine pH 5.0, Ur Specific Dumas 1.025, Urine Protein 30 H, Urine Glucose (UA) Normal, Urine Ketones Negative, Urine Occult Blood 50 H, Urine Nitrite Positive H, Urine Bilirubin Negative, Urine Urobilinogen Normal, Ur Leukocyte Esterase 500 H, Urine RBC 0-5 SEEN, Urine WBC 5-10 SEEN, Ur Squamous Epith Cells 0-5 SEEN, UrineBacteria 3+, Urine Mucus 0 SEEN Imaging Radiology Impression Brain CT 10/18/24 17:40 IMPRESSION: Focal soft tissue swelling and gas along the left frontal scalp to be correlatedfor soft tissue injury. No acute intracranial hemorrhage or acute calvarial fracture. - Global parenchymal volume loss and associated ex vacuo ventricular dilation. - Intracranial atherosclerosis and microvascular ischemic changes again noted. - Other findings discussed above. Reading Location: [facility] Chest X-Ray 10/18/24 17:55 IMPRESSION: Extensive pulmonary opacities, worrisome for malignancy/metastatic disease. Superimposed pneumonia can not be ruled out. Findings and recommendations discussed above. Reading Location: [facility] Assessment & Plan Assessment/Plan (1) UTI (urinary tract infection): PLAN: Plan # Acute metabolic encephalopathy suspect secondary to urinary tract infection ontop of chronic dementia -UA suspicious for infection -Will treat empirically with IV antibiotics while waiting further culture and sensitivity data # Abnormal chest x-ray -Patient does have history of basal cell carcinoma and breast cancer, she underwent palliative radiation last year for breast cancer -Suspect that this is metastatic in nature but a CT with contrast would be able to better characterize chest findings -Kidney function is up from baseline, suspect due to patient's poor p.o. intake -Gentle IVF and will schedule CT chest/abdomen/pelvis with contrast for the a.m.once patient hydrated -Patient without productive cough or elevated white count, lower suspicion for asuperimposed pneumonia however cannot rule it out based on current imaging, willalready be on Rocephin, will add azithromycin until further imaging -I/s - Albuterol as needed #Hypothyroidism -Continue Synthroid #Hypertension - Hold home losartan with kidney function, can likely add back on discharge -Continue propranolol -prn Hydralazine # History of breast cancer and basal cell carcinoma -Completed palliative radiation to the right breast 10/17/2023 -She is to follow-up as needed on an outpatient basis with radiation oncology -Last saw oncology in the office 10/01/[address] Bolaños at that time # Dementia - Supportive care -Continue home memantine and donepezil #Depression/anxiety -Continue home medications #DVT ppx: SCDs Oksana Fortune MD CODE status: Discussed CODE status at length including difference between FULL code, DNR-CCA, and DNR-CC status. Following discussions about the differences inthese status, requested full code. This will need to be revisited after furtherimaging and clinical status, suspect patient and son may end up being amenable to alternative discussions and CODE STATUS but patient reporting she wants to befull code and son agrees with her wishes at this time, again suspect that this can be discussed further moving forward Charges/Coding Visit Charges Inpatient E&M: 50826 Init Hosp L2 10/18/242041 <Electronically signed by Oksana Fortune MD> Cosigner Signature (if applicable): CC: Dr. Russell Shannon, DO; Dr. Oksana Fortune MD~ Signed [facility] Work Phone: Hospital Discharge instructionsAdditional Instructions Follow-up with your primary care doctor to monitor your kidney functionWWilson Street Hospital Work Phone: Reason for referral (narrative)No reason for referral information availableWWilson Street Hospital Work Phone: Advance Directives No Advanced Directives Records Found Advance Directive Response Recorded Date/ Time Advance Directives Yes November 19, 2013 1:13pm Living Will Yes March 10 3:35pm Power of Turning Machine Operator Helper Yes March 10, 2021 3:35pm Advance Directive Response Recorded Date/ Time Advance Directives Yes September 12 1:03pm Advance Directive Response Recorded Date/ Time Do you have a Healthcare Power of Turning Machine Operator Helper? Yes October 18, 2024 5:40pm Advance Directives Yes September 12 1:03pm Advance Directive Response Recorded Date/ Time Do you have a Healthcare Power of Turning Machine Operator Helper? Yes October 18, 2024 9:01pm Advance Directives Yes September 12 1:03pm Summary Purpose Family History Relationship Condition Age at Onset Recorded Date/T kennedi Not Specified No pertinent family history Unknown mother Hypertension Unknown Cerebrovascular accident (CVA) Unknown No Family History Records Found Chief Complaint and Reason for Visit Chief Complaint Admit Date AMS 2/2 UTI October 18, 2024 8:30pm Reason for Visit Admit Date UTI (urinary tract infection) October 18, 2024 8:30pm Chief Complaint Admit Date AMS 2/2 UTI October 18, 2024 8:30pm AMS 2/2 UTI October 19, 2024 9:37am AMS 2/2 UTI October 20, 2024 8:44am AMS 2/2 UTI October 20, 2024 1:40pm AMS 2/2 UTI October 21, 2024 8:38am AMS 2/2 UTI October 22, 2024 9:34am Reason for Visit Admit Date LBBB (left bundle branch block) Septembe r 2024 8:30pm Lung mass October 18, 2024 8:30pm Palliative care encounter October 18, 2024 8:30pm Shortness of breath October 18, 2024 8:30pm UTI (urinary tract infection) October 18, 2024 8:30pm Additional Source Comments Care Teams (unrecognized sec tion and content) Team Status: Active Member Role Status Dates Dr. Russell Shannon DO Family Provider Active Dr. Russell Shannon DO Primary Care Provider Active Team Status: Inactive Member Role Status Dates Dr. Russell Shannon DO Primary Care Prov ider, Attending Provider, [...] August 07, 2024 End: August 07, 2024 Team Status: Active Member Role/Relationship Status Dates Dr. Russell Shannon DO Primary Care Provider Active Team Status: Active Member Role/Relationship Status Dates Dr. Russell Shannon DO Primary Care Provider Active Start: October 18, 2024 Dr. Vincent Brumfield DO Emergency Provider Active Start: October 18, 2024 Dr. Oksana Fortune MD Admit Provider Active Star t: October 18, 2024 Dr. Oksana Fortune MD Attending Provider Active Start: October 18, 2024 Dr. Oksana Fortune MD Other Provider Active Star t: October 18, 2024 Team Status: Inactive Member Role/Relationship Status Dates Dr. Russell Shannon DO Primary Care Provider Active Start: October 18, 2024 End: October 22, 2024 Dr. Vincent Brumfield DO Emergency Provider Active Start: October 18, 2024 End: October 22, 2024 Dr. Oksana Fortune MD Admit Provider Active Star t: October 18, 2024 End: October 22, 2024 Dr. Oksana Fortune MD Other Provider Active Star t: October 18, 2024 End: October 22, 2024 Dr. Onel Tenorio MD Attending Provider Active Start: October 18, 2024 End: October 22, 2024 ALHAJI Cobb Other Provider Active Start: October End: October 22, 2024 Team Status: Active Member Role/Relationship Status Dates Dr. Russell Shannon DO Primary Care Provider Active Start: October 19, 2024 Dr. Vincent Brumfield DO Emergency Provider Active Start: October 19, 2024 Dr. Oksana Fortune MD Admit Provider Active Star t: October 19, 2024 Dr. Oksana Fortune MD Other Provider Active Star t: October 19, 2024 Dr. Onel Tenorio MD Attending Provider Active Start: October 19, 2024 Dr. Onel Tenorio MD Other Provider Active Start: October 19, 2024 Team Status: Active Member Role/Relationship Status Dates Dr. Russell Shannon DO Primary Care Provider Active Start: October 20, 2024 Dr. Vincent Brumfield DO Emergency Provider Active Start: October 20, 2024 Dr. Oksana Fortune MD Admit Provider Active Star t: October 20, 2024 Dr. Oksana Fortune MD Other Provider Active Star t: October 20, 2024 Dr. Onel Tenorio MD Attending Provider Active Start: October 20, 2024 Dr. Onel Tenorio MD Other Provider Active Start: October 20, 2024 Team Status: Active Member Role/Relationship Status Dates Dr. Russell Shannon DO Primary Care Provider Active Start: October 20, 2024 Dr. Vincent Brumfield DO Emergency Provider Active Start: October 20, 2024 Dr. Oksana Fortune MD Admit Provider Active Star t: October 20, 2024 Dr. Oksana Fortune MD Other Provider Active Star t: October 20, 2024 Dr. Onel Tenorio MD Other Provider Active Start: October 20, 2024 ALHAJI Cobb Attending Provider Active Start: October IvonALHAJI Armando Other Provider Active Start: October Team Status: Active Member Role/Relationship Status Dates Dr. Russell Shannon DO Primary Care Provider Active Start: October 21, 2024 Dr. Vincent Brumfield DO Emergency Provider Active Start: October 21, 2024 Dr. Oksana Fortune MD Admit Provider Active Star t: October 21, 2024 Dr. Oksana Fortune MD Other Provider Active Star t: October 21, 2024 Dr. Onel Tenorio MD Attending Provider Active Start: October 21, 2024 Dr. Onel Tenorio MD Other Provider Active Start: October 21, 2024 ALHAJI Cobb Other Provider Active Start: October Team Status: Active Member Role/Relationship Status Dates Dr. Russell Shannon DO Primary Care Provider Active Start: October 22, 2024 Dr. Vincent Brumfield DO Emergency Provider Active Start: October 22, 2024 Dr. Oksana Fortune MD Admit Provider Active Star t: October 22, 2024 Dr. Oksana Fortune MD Other Provider Active Star t: October 22, 2024 Dr. Onel Tenorio MD Attending Provider Active Start: October 22, 2024 Dr. Onel Tenorio MD Other Provider Active Start: October 22, 2024 Ivon Unger NP-Saad Other Provider Active Start: October Goals (unrecognized section and content) Goals may [...] or prosecute any alcohol or drug abuse patient.[facility] INFORMATION SOURCE (unrecogn ized section and content) DATE CREATED AUTHOR 09/26/2023 [facility] DATE CREATED AUTHOR AUTHOR'S HENRY LOPEZ 10/24/2024 [facility] FOR RECORDS PERTAINING TO PATIENTS [...] BE BASED ON THE PRIMARY CLINICAL RECORDS. [facility] [employer] provides no warranty or guarantee of the accuracy or completeness of information in this document.
[2024-10-26 05:00] VITALS: BP 161/56; PULSE 52; RESP 16; TEMP 36.7; O2SAT 100
[2024-10-26 05:14] VITALS: BP 161/56; PULSE 53; RESP 16; TEMP 36.7; O2SAT 99
== END 2024-10-26 05:25 | disposition home or self-care (01) ==
PROVIDERS: Emergency Provider Emergency Medicine; PCP Family Medicine; Visit Provider Emergency Medicine
DX: R06.02 Shortness of breath (principal); F03.90 Unspecified dementia, unspecified severity, without behavioral disturbance, psychotic disturbance, mood disturbance, and anxiety; N63.10 Unspecified lump in the right breast, unspecified quadrant; I10 Essential (primary) hypertension; Z87.891 Personal history of nicotine dependence; E78.5 Hyperlipidemia, unspecified; Z85.828 Personal history of other malignant neoplasm of skin; Z79.899 Other long term (current) drug therapy; F41.9 Anxiety disorder, unspecified; Z98.51 Tubal ligation status; R91.8 Other nonspecific abnormal finding of lung field
CPT/HCPCS: 99284; A4216

== ENCOUNTER 2024-11-08 18:53 | Emergency (ER) | payer MEDICARE, OTHER, SELFPAY ==
[2024-11-08 18:53] VITALS: BP 126/61; PULSE 62; RESP 14; TEMP 36.7; O2SAT 81; O2SAT 92; BMI 13.8
--- NOTE | 2024-11-08 19:29 | EX.ED.DYSGE1 ---
HPI History of Present Illness Chief Complaint: Poisoning Informant: patient, EMS and SNF Onset/Context/Timing Onset: Today Context: Gradual Onset Timing: Continuous Narrative Narrative: 79-year-old female history of dementia and skin cancer. Currently lives in extended-care facility. [employer] was found at the extended-care facility drinking water that she used to clean her dentures with some type of denture boiler cleaner. They were concerned and wanted her evaluated. She does not have any complaints. She is a limited informant due to her dementia. Prior similar symptoms: No Recent Illness/Hospitalization: No PFSH PFSH Medical History Basal cell carcinoma of scalp Wears glasses Cancer Forgetfulness Anxiety Thyroid disease Arthritis Difficulty swallowing Former smoker Hypertension History of echocardiogram History of stress test Former smoker Neoplasm of skin of scalp Home Medications ?Medication ?Instructions ?Recorded ?Last Taken ?Type propranolol 60 mg capsule,24 60 mg PO QHS 03/10/21 Unknown History hr,extended release vitamin B12 500 mcg-folic acid 400 1 tab PO DAILY 03/10/21 Unknown History mcg tablet donepezil 10 mg tablet 10 mg PO DAILY 09/17/23 Unknown History memantine 5 mg tablet 5 mg PO BID 09/17/23 Unknown History levothyroxine 75 mcg tablet 75 mcg PO DAILY 10/18/24 Unknown History losartan 100 mg tablet 100 mg PO DAILY 10/18/24 Unknown History sertraline 50 mg tablet 50 mg PO DAILY 10/18/24 Unknown History azithromycin 500 mg tablet 500 mg PO DAILY #1 TAB 10/22/24 Unknown Rx cefdinir 300 mg capsule 300 mg PO BID #6 caps 10/22/24 Unknown Rx Allergy/AdvReac Type Severity Reaction Status Date / Time codeine Allergy Other Verified 11/08/24 19:02 simvastatin Allergy Other Verified 11/08/24 19:02 Family History Mother Hypertension CVA (cerebral vascular accident) Other No pertinent family history Surgical History History of basal cell carcinoma excision History of local excision of skin lesion History of cystoscopy Hx of submandibular gland removal Hx of tubal ligation Hx of total thyroidectomy History of thyroid surgery Social History housing: house Smoking Status: Former smoker alcohol intake: current alcohol intake frequency: holidays/special occasions only details: 1 glass of wine substance use type: does not use additional social history: Does Not Take Aspirin Does Not Take Ibuprofen ROS ROS ED ROS Narrative No recent illness per the long term. Patient has dementia and is very limited informant. Review of Systems ROS Unobtainable: due to mental status EXAM Physical Exam Narrative Exam Narrative: 79-year-old female sitting upright in bed vital signs stable afebrile. No acute distress. No family present in the room. H EENT exam pupils round react light. Moist mucous memories. Posterior pharynx is unremarkable. No erythema. No swelling. No trouble swallowing or breathing. No stridor or drooling. She has a bandage on her right scalp from where she had a skin cancer resected. Neck nontender. No lymphadenopathy. Lungs clear to auscultation bilaterally. Heart regular rhythm rate about 60 no murmur. Chest wall ribs nontender. Abdomen soft nontender. No peritoneal signs. No distention. Moving all 4 extremities. Very thin. Nontender. No edema. No deformity. Back nontender. Neurologically she is awake. Her eyes are open. She follows commands. Very limited informant due to her dementia. Const Vital Signs: 11/08/24 18:53 11/08/24 19:35 11/08/24 19:36 Temperature 98.1 F Temperature Source Oral Pulse Rate 62 Respiratory Rate 14 Respiratory Effort Respiratory Pattern Blood Pressure 126/61 H Blood Pressure Mean 82 Pulse Ox 92 88 94 Oxygen Delivery Method Room Air Room Air Nasal Cannula Oxygen Flow Rate (L/min) 2 11/08/24 19:40 Temperature Temperature Source Pulse Rate Respiratory Rate Respiratory Effort Normal Respiratory Pattern Normal Blood Pressure Blood Pressure Mean Pulse Ox Oxygen Delivery Method Oxygen Flow Rate (L/min) Positive well nourished and well developed; Negative for obese, cachectic, contractures or unkempt Constitutional Narrative: Thin. General Appearance ED: well developed and NAD; Negative for unkempt, cachectic, contractures, cyanotic, diaphoretic or pallor Nutritional Appearance: Negative for cachectic or obese HEENT Reports moist mucous membranes HEENT Narrative: No trouble swallowing or breathing. No stridor or drooling. Posterior pharynx unremarkable. No swelling. Eyes PERRL and EOMs intact bilaterally Neck no lymphadenopathy, supple and no JVD Chest Wall inspection of chest normal and palpation of chest normal Resp normal respiratory effort and clear to auscultation bilaterally Cardio regular rate, regular rhythm, S1 normal heart sound, S2 normal heart sound and no murmurs GI normal to inspection, nondistended, normoactive bowel sounds, non-tender, non-distended and no masses Auscultation: normoactive bowel sounds Palpation: soft; Negative for tender, guarding or rebound tenderness present Back/Spine no CVA tenderness Extremity normal to inspection Extremity Narrative: Thin. Nontender. No edema. General Extremety ED: Negative for edema or tenderness General Extremity: Negative for edema Neuro No oriented x3 and CN's II-XII intact bilaterally Neuro Narrative: Dementia. Confused. Sensorium / Orientation: alert Motor Exam: strength 5/5 throughout Psych mental status grossly normal Appearance: Negative for unkempt Skin no rashes or lesions noted and no wounds Skin Narrative: Skin cancer removed from scalp. General Skin Exam: Negative for jaundice or pallor Wounds: wounds noted MDM MDM MDM Narrative Medical decision making narrative: 79-year-old female with dementia was drinking water that had denture boiler cleaner material in it. Currently no complaints. She will be observed. Discharged to home. I have already spoken to the extended-care facility. I will attempt to call her son. I spoke to the patient's son around 8:05 PM. He is actually coming into the emergency department. He will take his mom back to the extended-care facility. History & Record Review Discussion w/independent historian: EMS personnel, Patient and Other Additional record(s) reviewed:: Prior inpatient record, Prior outpatient record, Prior ED visit and Prior labs Discharge Plan Triage Chief Complaint: Poisoning ED Provider: Jeramy Pollard Dx/Rx/DC Orders Clinical Impression: Ingestion, drug, inadvertent or accidental, Dementia, Skin cancer Instructions: ED Accidental Ingestion ... Prescriptions: No Action memantine 5 mg tablet 5 mg PO BID donepezil 10 mg tablet 10 mg PO DAILY vitamin [id number] 500-400 mcg Tablet 1 tab PO DAILY propranolol 60 MG capsule,extended release 24 hr 60 mg PO QHS Patient Comments: heart/blood pressure levothyroxine 75 mcg tablet 75 mcg PO DAILY losartan 100 mg tablet 100 mg PO DAILY sertraline 50 mg tablet 50 mg PO DAILY azithromycin 500 mg tablet 500 mg PO DAILY Qty: 1 0RF cefdinir 300 mg capsule 300 mg PO BID Qty: 6 0RF Primary Care Provider: Oswald Bermudez Referrals: Russell Shannon DO [Med Staff - Custodial Laborer, [facility]] Oswald Bermudez MD [Primary Care Provider, [facility]] - As Needed Activity Restrictions/Additional Instructions: Remove the denture boiler cleaner from the patient's room should she want have contact with it. Follow-up with your doctor as needed. Print Language: Tajik Disposition Disposition: Home, Self Care
[2024-11-08 19:35] VITALS: O2SAT 88
[2024-11-08 19:36] VITALS: O2SAT 94
[2024-11-08 20:23] VITALS: BP 123/41; PULSE 64; RESP 18; TEMP 36.7; O2SAT 97
== END 2024-11-08 20:41 | disposition home or self-care (01) ==
PROVIDERS: Emergency Provider Emergency Medicine; PCP Family Medicine; Visit Provider Emergency Medicine
DX: T50.991A Poisoning by other drugs, medicaments and biological substances, accidental (unintentional), initial encounter (principal); F03.90 Unspecified dementia, unspecified severity, without behavioral disturbance, psychotic disturbance, mood disturbance, and anxiety; Z87.891 Personal history of nicotine dependence; I10 Essential (primary) hypertension; F41.9 Anxiety disorder, unspecified; Z98.51 Tubal ligation status; Z79.899 Other long term (current) drug therapy; C44.90 Unspecified malignant neoplasm of skin, unspecified
CPT/HCPCS: 99284